=== PATIENT | male | born 1965 | race Caucasian/White ===

== ENCOUNTER → 2022-04-09 06:18 | Outpatient (CLI) | payer OTHER, SELFPAY ==
[2022-04-08 18:11] LABS: Alanine Aminotransferase 11 U/L (12-78); Albumin Level 3.9 g/dl (3.5-5.0); Albumin/Globulin Ratio 1.4 (1.1-1.8); Alkaline Phosphatase 109 U/L (38-126); Anion Gap 10.8 mEq/L (5-15); Aspartate Amino Transferase 23 U/L (17-59); Blood Urea Nitrogen 4 mg/dl (9-20); Calcium 9.4 mg/dl (8.4-10.2); Carbon Dioxide 28 mmol/L (22.0-30.0); Chloride 106 mmol/L (98-107); Chol/HDL Ratio 4.7 (1-3.5); Cholesterol 160 mg/dl (140-200); Estimated Glomerular Filt Rate 116 ml/min (>60); GFR (African American) 140 ML/MIN (>60); Globulin 2.8 g/dL (1.3-3.2); Glucose 85 mg/dl (74-100); HDL Cholesterol 34 mg/dl (40-60); Potassium 4.8 mmoL/L (3.5-5.1); Sodium 140 mmol/L (136-145); Total Protein,Serum 6.7 g/dl (6.3-8.2); Triglycerides 121 mg/dl (30-150); VLDL Cholesterol 24 mg/dL (0-40)
[2022-04-08 18:13] LABS: Bilirubin,Total 0.1 mg/dl (0.2-1.3)
[2022-04-08 18:23] LABS: Direct LDL Cholesterol 87.97 mg/dL (100-129)
[2022-04-08 18:28] LABS: 25-OH Vitamin D, Total 28.6 ng/mL (30-100)
[2022-04-08 18:29] LABS: Free T4 (Free Thyroxine) 1.22 ng/dl (0.78-2.19)
[2022-04-08 18:37] LABS: Erythrocyte Sedimentation Rate 8 mm/hr (0-20)
[2022-04-08 18:40] LABS: Basophils # 0.1 K/mm3 (0-0.2); Basophils % 1.2 % (0.1-2.0); Eosinophils # 0.2 K/mm3 (0.0-0.4); Eosinophils % 2.2 % (0.1-12.0); Hematocrit 43.9 % (42.0-52.0); Hemoglobin 14.6 g/dL (14.1-18.0); Lymphocytes # 3.5 K/mm3 (0.7-4.5); Lymphocytes % 38.6 % (10-50); Mean Corpuscular HGB Conc 33.2 g/dL (31.8-35.4); Mean Corpuscular Volume 90.3 fl (80-94); Mean Platelet Volume 8.1 fl (7.4-10.4); Monocytes # 0.7 K/mm3 (0.1-1.0); Monocytes % 7.3 % (1.7-9.3); Neutrophils # 4.6 K/mm3 (1.8-7.8); Neutrophils % 50.6 % (37.0-80.0); Platelet Count 379 K/mm3 (142-424); Red Blood Count 4.86 M/mm3 (4.60-6.20); Red Cell Distribution Width 13.5 % (11.5-17.5)
[2022-04-08 18:44] LABS: Prostate Specific Ag Screen 0.6 ng/ml (0.0-4.0); Thyroid Stimulating Hormone 2.02 uIU/mL (0.465-4.68)
== END ==
PROVIDERS: PCP Emergency Medicine; Visit Provider Emergency Medicine
DX: M54.50 Low back pain, unspecified (principal); M79.604 Pain in right leg; M79.605 Pain in left leg; E55.9 Vitamin D deficiency, unspecified; Z12.5 Encounter for screening for malignant neoplasm of prostate
CPT/HCPCS: 80053; 80061; 82306; 84439; 84443; 85025; 85651; G0103

== ENCOUNTER → 2022-04-27 09:35 | Outpatient (CLI) | payer OTHER, SELFPAY ==
--- NOTE | 2022-04-27 10:33 | MR_ITS ---
FINAL REPORT CLINICAL HISTORY: chronic low back pain. no specific injury. pain radiates down bilateral extremities. FINDINGS: Multiplanar MR imaging of the lumbar spine was performed without contrast. On the sagittal T2-weighted images, multilevel disc degeneration is seen. There are endplate changes at several levels. A hemangioma is seen in the L1 vertebral body. The vertebral alignment is normal. There is no evidence of fracture. No bony mass is identified. The conus is seen at approximately the L1 level and has an unremarkable appearance. L1-2: There is annular disc bulge and left foraminal disc protrusion with moderate left neural foraminal narrowing. L2-3: An annular bulge is present. Facet arthropathy and osteophytes are present. There is moderate bilateral neural foraminal narrowing. L3-4: An annular bulge is present. Facet arthropathy and osteophytes are present. There is moderate bilateral neural foraminal narrowing. There is mild central canal stenosis with AP diameter thecal sac measuring 7 mm. L4-5: There is an annular disc bulge and posterior midline annular tear. There is moderate bilateral neural foraminal narrowing. L5-S1: There is annular disc bulge with mild bilateral neural foraminal narrowing. Spurring is noted of the SI joints. The right kidney is not visualized and may be ectopic or absent. IMPRESSION: Multilevel degenerative disc disease with mild central canal stenosis at L3-4 and mild to moderate neural foraminal narrowing throughout . Reviewed, Interpreted and Dictated by Yoseph Richardson III, MD Transcribed by Yolanda Carranza Authenticated and . [facility]
== END ==
LOC: RAD 09:35
PROVIDERS: PCP Emergency Medicine; Visit Provider Emergency Medicine
DX: M54.9 Dorsalgia, unspecified (principal); M54.50 Low back pain, unspecified
CPT/HCPCS: 72148

== ENCOUNTER → 2022-10-10 07:07 | Outpatient (CLI) | payer OTHER, SELFPAY ==
[2022-10-10 18:36] LABS: Alanine Aminotransferase 11 U/L (12-78); Albumin Level 4.3 g/dl (3.5-5.0); Albumin/Globulin Ratio 1.5 (1.1-1.8); Alkaline Phosphatase 126 U/L (38-126); Anion Gap 8.2 mEq/L (5-15); Aspartate Amino Transferase 25 U/L (17-59); Bilirubin,Total 0.6 mg/dl (0.2-1.3); Blood Urea Nitrogen 9 mg/dl (9-20); Calcium 9.3 mg/dl (8.4-10.2); Carbon Dioxide 30 mmol/L (22.0-30.0); Chloride 105 mmol/L (98-107); Chol/HDL Ratio 4.3 (1-3.5); Cholesterol 185 mg/dl (140-200); Estimated Glomerular Filt Rate 99 ml/min (>60); GFR (African American) 120 ML/MIN (>60); Globulin 2.9 g/dL (1.3-3.2); Glucose 94 mg/dl (74-100); HDL Cholesterol 43 mg/dl (40-60); Potassium 4.2 mmoL/L (3.5-5.1); Sodium 139 mmol/L (136-145); Total Protein,Serum 7.2 g/dl (6.3-8.2); Triglycerides 85 mg/dl (30-150); VLDL Cholesterol 17 mg/dL (0-40)
[2022-10-10 18:49] LABS: Direct LDL Cholesterol 108.05 mg/dL (100-129)
[2022-10-10 19:04] LABS: Basophils # 0.1 K/mm3 (0-0.2); Basophils % 1.4 % (0.1-2.0); Eosinophils # 0.2 K/mm3 (0.0-0.4); Eosinophils % 2.4 % (0.1-12.0); Hematocrit 44.7 % (42.0-52.0); Hemoglobin 14.4 g/dL (14.1-18.0); Lymphocytes # 2.7 K/mm3 (0.7-4.5); Lymphocytes % 35.9 % (10-50); Mean Corpuscular HGB Conc 32.2 g/dL (31.8-35.4); Mean Corpuscular Hemoglobin 28.3 pg (27.0-31.2); Mean Corpuscular Volume 87.8 fl (80-94); Mean Platelet Volume 8.1 fl (7.4-10.4); Monocytes # 0.5 K/mm3 (0.1-1.0); Monocytes % 6.2 % (1.7-9.3); Neutrophils # 4.1 K/mm3 (1.8-7.8); Neutrophils % 54.2 % (37.0-80.0); Platelet Count 451 K/mm3 (142-424); Red Blood Count 5.09 M/mm3 (4.60-6.20); Red Cell Distribution Width 14.2 % (11.5-17.5); White Blood Count 7.5 K/mm3 (4.8-10.8)
[2022-10-10 19:07] LABS: Thyroid Stimulating Hormone 2.01 uIU/mL (0.465-4.68)
== END ==
LOC: LAB.DROPOF 10-11 07:07
PROVIDERS: PCP Nurse Practitioner Family; Visit Provider Nurse Practitioner Family
DX: R53.83 Other fatigue (principal); I10 Essential (primary) hypertension
CPT/HCPCS: 80053; 80061; 84443; 85025

== ENCOUNTER → 2022-10-18 11:43 | Outpatient (POV) | payer OTHER, SELFPAY ==
[2022-10-18 11:55] VITALS: BP 118/88; PULSE 60; RESP 18; O2SAT 98; BMI 21.8
--- NOTE | 2022-10-18 12:23 | EXP.PAIN.OV ---
HPI Data of Consult Patient: new to practice Consult date: 10/18/22 Requesting Physician: Isaías Evans CRNA Primary Care Provider: Constantine Stiles APRN Consult Narrative Reason for consult: Lumbar back pain. Bilateral hip and leg radicular symptoms. History of present illness: Mr. Teixeira is a 56 year old male who comes our clinic today for initial consultation regarding chronic low back pain as well as bilateral hip and leg radicular symptoms to his feet. Patient describes this pain is been going on for 4 to 6 months. Patient did obtain a lumbar MRI. I reviewed the results with the patient. MRI reveals multilevel degenerative disc disease. Multilevel disc bulge L3-4, L4-5, L5-S1. Mild canal stenosis at the 3 4 level. I discussed in detail with the patient regarding his low back pathology as well as treatment options. Patient has tried some chiropractic treatment in the last 6 months with minimal relief. He has been taking NSAIDs as well as acetaminophen with minimal relief. Patient does attend a Suboxone clinic. Patient also takes gabapentin 600 mg 1 p.o. 4 times daily. He reports the Suboxone does not relieve his pain to any degree. Simply keeps him from seeking pain medications. Patient reports gabapentin does seem to help with his leg pain at times. 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 He is having difficulty performing his job adequately due to the pain. CC: Isaías Evans CRNA [facility] Disclaimer: The information contained in this section may have been updated after the patient was seen, as this information can be updated by other users. Medical History (Updated 10/18/22 @ 12:32 by Isaías Evans CRNA) DDD (degenerative disc disease), lumbar Social History (Updated 10/18/22 @ 11:59 by Indu Olivas RN) Smoking Status: Current every day smoker tobacco type: cigarettes packs per day: 2 alcohol intake: former substance use type: former substance user current occupational status: employed Travel in the last 8 weeks: None Review of Systems Review of Systems Review of systems (narrative): Patient is awake alert [place] x3. In no acute distress. Flexion-extension lumbar spine very guarded secondary to pain. Deep tendon reflexes upper lower extremities normal. Motor strength upper and lower extremities normal. There is no gross sensory deficit. Gait is normal. Meds Home Medications and Allergies Home Medications Medication Instructions Recorded Confirmed Type buprenorphine 8 mg-naloxone 2 mg 2 tab sublingual DAILY . 04/08/22 10/18/22 History sublingual tablet cholecalciferol (vitamin D3) 1,250 1,250 mcg PO WEEKLY vitamin d 07/05/22 10/18/22 Rx mcg (50,000 unit) capsule deficiency #12 caps cholecalciferol (vitamin D3) 50 50 mcg PO DAILY SUPPLIMENT 10/18/22 10/18/22 History mcg (2,000 unit) capsule gabapentin 600 mg tablet 600 mg PO QID Pain 10/18/22 10/18/22 History naproxen 500 mg tablet 500 mg PO BID Pain 10/18/22 10/18/22 History New Prescriptions to Start Prescriptions: Allergies Allergy/AdvReac Type Severity Reaction Status Date / Time No Known Allergies Allergy Verified 10/10/22 13:47 Objective Vital signs: Pulse Resp BP Pulse Ox 60 18 118/88 98 10/18/22 11:55 10/18/22 11:55 10/18/22 11:55 10/18/22 11:55 Opioid Risk Tool Opioid Risk Tool-Male Family hx alcohol abuse: No Family hx illegal drugs: No Family hx rx drug abuse: No Personal hx alcohol abuse: Yes Personal hx illegal drugs: Yes Personal hx rx drug abuse: No Age: 45+ Hx of sexual abuse: No Mental health issues-ADD,OCD,Bipolar, etc: No Hx of depression: Yes Male Risk Score: 7 Assessment and Plan *Assessment and plan (1) Lumbar radiculopathy: Status: Acute Category: Medical Code(s): M54.16 - Radiculopathy, lumbar region Plan I discussed in detail with the patient regarding the benefits of lumbar epidural ster
== END ==
PROVIDERS: PCP Nurse Practitioner Family; Visit Provider Nurse Anesthetist, Certified Registered
DX: M54.16 Radiculopathy, lumbar region (principal)
CPT/HCPCS: 99202; G0463

== ENCOUNTER 2022-10-29 08:57 | Day surgery (SDC) | payer OTHER, SELFPAY ==
[2022-10-29 09:13] VITALS: BP 159/84; PULSE 56; RESP 18; TEMP 36.7; O2SAT 97; BMI 22.1
[2022-10-29 09:29] VITALS: BP 169/7; PULSE 59; RESP 18; O2SAT 98
[2022-10-29 09:31] VITALS: BP 169/71; PULSE 59; RESP 18; O2SAT 98
--- NOTE | 2022-10-29 09:36 | EXP.PAIN.PRO ---
Procedure Date: 10/29/22 Time: 09:36 Anesthesiologist:: Isaías Evans CRNA Complications:: None Pre-procedure Diagnosis:: Degenerative disc disease lumbar spine multilevels. Lumbar radiculopathy. Multilevel disc bulge L3-4, L4-5, L5-S1. Spinal stenosis lumbar spine. Post-procedure Diagnosis:: Same. Indications for Procedure:: This patient is a very pleasant 56-year-old male who presents to our clinic today for lumbar epidural steroid injection at the L4-5 level. Patient describes his low back pain as constant, dull, aching. However, his main complaint is bilateral hip and leg radicular symptoms. He rates his pain 7/10. Procedure Details:: Procedure: Lumbar epidural steroid injection under fluoroscopy Informed consent was obtained and the risks and benefits of the procedure were explained to the patient. The patient was taken to the procedure room and noninvasive monitors placed, including noninvasive blood pressure cuff and pulse oximeter. The back was viewed using C-arm Fluoroscopy and prepped using Chloraprep as a cleansing solution and the L4-L5 interspace was palpated. Skin and subcutaneous tissues were anesthetized using lidocaine 1.5% and a 25-gauge needle. After this, an 18-gauge Touhy epidural needle was placed into the L4-L5 interspace and advanced using fluoroscopic guidance and loss of resistance to air until the epidural space was encountered. After confirmation of needle placement in the epidural space, with dye, a solution containing normal saline, 3 mL and Depo-Medrol 80 mg were incrementally injected into the lumbar epidural space. The patient tolerated the procedure well with no complications. The patient was observed in the Pain Clinic and then discharged home neurologically intact. Plan and Disposition:: Patient was discharged without incident.
[2022-10-29 09:37] VITALS: BP 137/75; PULSE 49; RESP 18; O2SAT 97
== END 2022-10-29 09:37 | disposition home or self-care (01) ==
PROVIDERS: PCP Nurse Practitioner Family; Visit Provider Nurse Anesthetist, Certified Registered
DX: M51.16 Intervertebral disc disorders with radiculopathy, lumbar region (principal); M48.061 Spinal stenosis, lumbar region without neurogenic claudication; F17.210 Nicotine dependence, cigarettes, uncomplicated
CPT/HCPCS: 62323; J1040

== ENCOUNTER → 2022-11-12 14:05 | Outpatient (POV) | payer OTHER, SELFPAY ==
--- NOTE | 2022-11-12 15:05 | EXP.PAIN.SOA ---
[facility] Pain Management SOAP Note Subjective:: Patient is a pleasant 56-year-old male who presents today for follow-up of lumbar epidural steroid injection at L4-L5 on 10/29/2022. We are currently treating the patient for degenerative disc disease of lumbar spine with lumbar radiculopathy symptoms, multilevel disc bulge, spinal stenosis lumbar spine. Today he states he had approximately 70% relief following this injection lasting only 3 days. Patient states he was able to increase his activity with decreased pain and had better functionality. He does rate his pain a 7 out of 10 today and states he is back to his baseline. Patient does describe this as an aching, throbbing sensation that is worse with increased activity. Patient states he does have little to no pain while he sitting however he cannot tolerate prolonged standing or walking due to the pain. He does state he frequently has to take breaks. Patient has tried chiropractor with minimal improvements. He does currently take Tylenol and ibuprofen with minimal relief. He is on Suboxone therapy from an outside provider. Patient is also managed with gabapentin 600 mg 4 times a day from his primary care doctor. Patient denies any side effects from this medication. His Handy is [id number]. Its been reviewed and appropriate. Review of Systems: General: No recent weight changes, no fever, no sleep disturbances Respiratory: No cough, no shortness of air, no recurring pulmonary infections Cardiovascular/peripheral vascular: No chest pain, no palpitations, no edema, no shortness of breath Gastrointestinal: No new onset incontinence, normal bowel movements reported Genitourinary: No new onset incontinence Musculoskeletal: Low back pain, leg pain Psychiatric: [Normal mood/affect] Neurological: [Denies weakness in extremities], [denies balance issues] Objective:: Physical Exam: General: Alert and oriented x3, no acute distress, pleasant and cooperative Lungs: Respirations even and unlabored, symmetrical chest expansion Eyes: PERRL Musculoskeletal: Flexion and extension of lumbar [spine] somewhat guarded secondary to pain, [antalgic gait noted] positive shopping cart sign Neurological: Speech clear, no gross sensory deficit Assessment:: Degenerative disc disease of lumbar spine with lumbar radiculopathy symptoms, multilevel disc bulge, spinal stenosis lumbar spine spinal stenosis with neurogenic claudication symptoms Plan:: Patient is experiencing significant pain in his low back with symptoms radiating into his lower extremity. He did have limited range of motion of his lumbar spine with neurogenic claudication symptoms and a positive shopping cart sign during today's visit. Patient did have 70% improvement following his last lumbar epidural. I have discussed with the patient that he may benefit from a repeat lumbar epidural steroid injection. Risk and benefits were discussed with the patient and he would like to proceed forward with this plan of care. I have also counseled the patient that he may be a potential candidate for a minimally invasive lumbar decompression in the future. Educational handouts were given. We will order a LESI with epidurogram of L4-L5 to determine if he is a possible mild candidate in the future. Patient has been instructed to contact the clinic with any concerns before the next appointment. Dr. Boyer has reviewed this note and agrees with this plan of care. This note was dictated using voice recognition software and make contain errors or omissions. [facility] Disclaimer: The information contained in this section may have been updated after the patient was seen, as this information can be updated by other users. Medical History DDD (degenerative disc disease), lumbar Family History (Updated 10/29/22 @ 09:14 by Kandy Marquez RN) Other No significant family history Social History (Reviewed 10/29/22 @ 09
[2022-11-12 15:13] VITALS: BP 144/82; PULSE 56; RESP 20; BMI 22.1
== END ==
PROVIDERS: PCP Nurse Practitioner Family; Visit Provider Nurse Practitioner Family
DX: M51.16 Intervertebral disc disorders with radiculopathy, lumbar region (principal); M48.062 Spinal stenosis, lumbar region with neurogenic claudication
CPT/HCPCS: 99212; G0463

== ENCOUNTER 2022-11-22 10:52 | Day surgery (SDC) | payer OTHER, SELFPAY ==
[2022-11-22 11:24] VITALS: BP 182/88; PULSE 56; RESP 18; TEMP 36.6; O2SAT 95; BMI 22.1
[2022-11-22 13:15] VITALS: BP 166/90; PULSE 55; RESP 18; O2SAT 96
[2022-11-22 13:17] VITALS: BP 166/90; PULSE 55; RESP 18; O2SAT 96
--- NOTE | 2022-11-22 13:19 | EXP.PAIN.PRO ---
Procedure Date: 11/22/22 Time: 13:19 Anesthesiologist:: Norman Boyer MD Complications:: None Pre-procedure Diagnosis:: Degenerative disc disease of lumbar spine with lumbar spinal stenosis and neurogenic claudication symptoms Post-procedure Diagnosis:: Same Indications for Procedure:: This patient is a pleasant 56-year-old white male who we are treating for low back pain with lumbar radiculopathy symptoms and lumbar spinal stenosis with neurogenic claudication symptoms. We will do a lumbar epidural steroid injection with epidurogram today to assess levels of stenosis and candidacy for minimally invasive lumbar decompression. Procedure Details:: Informed consent was obtained and the risk and benefits of the procedure was explained to the patient. The patient was taken to the procedure room. The patient was placed prone on the procedure table. The patient was prepped and draped in sterile fashion. C-arm fluoroscopy was used to view the lumbar spine. Skin and subcutaneous tissues were anesthetized using lidocaine. I placed an 18-gauge epidural needle and advanced into the L4-L5 interspace using fluoroscopic guidance and [id number] to air. After confirmation of needle placement in the epidural space with dye I injected 2 mL of lidocaine 1.5% with Depo-Medrol 80 mg. Patient tolerated the procedure well with no complications. Plan and Disposition:: This patient does have significant stenosis based on epidurogram at L3-4 L4-5 bilaterally. MRI does show significant stenosis as well we will seek approval for minimally invasive lumbar decompression bilateral L3-L4 and L4-L5.
[2022-11-22 13:34] VITALS: BP 173/84; PULSE 51; RESP 20
--- NOTE | 2022-11-22 13:34 | P.PCN_ITS ---
[facility] Procedure Note Date: 11/22/22 Time: 13:34
--- NOTE | 2022-11-22 13:34 | HMH.PROCNOTE ---
[facility] Procedure Note Date: 11/22/22 Time: 13:34
--- NOTE | 2022-11-22 13:34 | EXP.PAIN.PRO ---
Procedure Date: 11/22/22 Time: 13:34 Anesthesiologist:: Norman Boyer MD Complications:: None Pre-procedure Diagnosis:: Degenerative disc disease of lumbar spine with lumbar spinal stenosis and neurogenic claudication symptoms Post-procedure Diagnosis:: Same Indications for Procedure:: This patient is a pleasant 56-year-old white male who we are treating for
== END 2022-11-22 13:35 | disposition home or self-care (01) ==
PROVIDERS: PCP Nurse Practitioner Family; Visit Provider Anesthesiology
DX: M51.16 Intervertebral disc disorders with radiculopathy, lumbar region (principal); M48.062 Spinal stenosis, lumbar region with neurogenic claudication
CPT/HCPCS: 62323; J1040; Q9966

== ENCOUNTER → 2022-12-11 09:09 | Outpatient (POV) | payer OTHER, SELFPAY ==
[2022-12-11 09:37] VITALS: BP 160/97; PULSE 62; RESP 18; O2SAT 97; BMI 22.1
--- NOTE | 2022-12-11 10:37 | EXP.PAIN.SOA ---
[facility] Pain Management SOAP Note Subjective:: Patient is a pleasant 56-year-old male who presents today for follow-up of insurance denial for a minimally invasive lumbar decompression procedure. We are currently treating the patient for degenerative disc disease of lumbar spine with lumbar radiculopathy symptoms, multilevel disc bulge, spinal stenosis lumbar spine.? Today he rates his pain a 9 out of 10. Patient denies any new trauma or injury. He states he continues to have significant pain in his low back as well as legs and now his right knee. Patient states that this is an aching, throbbing sensation that is worse with increased activity. He states he has noticed more leg cramping that occurs at night and frequently wakes him up to where he has to get up and move around to get relief. Patient does describe his back pain as an aching, throbbing sensation that is worse with increased activity.? Patient states he does have little to no pain while he sitting however he cannot tolerate prolonged standing or walking due to the pain.? He does state he frequently have to take breaks even with the slightest activity such as doing the dishes.? He does state his pain interferes with his ability to perform activities of daily living such as cooking or cleaning or even just walking on a regular basis. Patient has tried chiropractor with minimal improvements.? He does currently take Tylenol and ibuprofen with minimal relief.? He is on Suboxone therapy from an outside provider.? Patient is also managed with gabapentin 600 mg 4 times a day from his primary care doctor.? Patient denies any side effects from this medication.? His Handy is [id number].? Its been reviewed and appropriate. Review of Systems: General: No recent weight changes, no fever, no sleep disturbances Respiratory: No cough, no shortness of air, no recurring pulmonary infections Cardiovascular/peripheral vascular: No chest pain, no palpitations, no edema, no shortness of breath Gastrointestinal: No new onset incontinence, normal bowel movements reported Genitourinary: No new onset incontinence Musculoskeletal: Low back pain, right knee pain Psychiatric: [Normal mood/affect] Neurological: [Denies weakness in extremities], [denies balance issues] Objective:: Physical Exam: General: Alert and oriented x3, no acute distress, pleasant and cooperative Lungs: Respirations even and unlabored, symmetrical chest expansion Eyes: PERRL Musculoskeletal: Flexion and extension of lumbar [spine] somewhat guarded secondary to pain, [antalgic gait noted] Neurological: Speech clear, no gross sensory deficit CLINICAL HISTORY: chronic low back pain. no specific injury. pain radiates down bilateral extremities. FINDINGS: Multiplanar MR imaging of the lumbar spine was performed without contrast. ? On the sagittal T2-weighted images, multilevel disc degeneration is seen.? There are endplate changes at several levels.? A hemangioma is seen in the L1 vertebral body.? The vertebral alignment is normal. There is no evidence of fracture. No bony mass is identified. The conus is seen at approximately the L1 level and has an unremarkable appearance. ? L1-2:? There is annular disc bulge and left foraminal disc protrusion with moderate left neural foraminal narrowing.? L2-3:? An annular bulge is present.? Facet arthropathy and osteophytes are present.? There is moderate bilateral neural foraminal narrowing.? L3-4:? An annular bulge is present.? Facet arthropathy and osteophytes are present.? There is moderate bilateral neural foraminal narrowing.? There is mild central canal stenosis with AP diameter thecal sac measuring 7 mm. L4-5:? There is an annular disc bulge and posterior midline annular tear.? There is moderate bilateral neural foraminal narrowing.? L5-S1:? There is annular disc bulge with mild bilateral neural foraminal narrowing.? ? Spurring is noted of the SI joints.? ? The right kidney is not visualized and may be ectopic or
== END | disposition home or self-care (01) ==
PROVIDERS: PCP Nurse Practitioner Family; Visit Provider Nurse Practitioner Family
DX: M51.16 Intervertebral disc disorders with radiculopathy, lumbar region (principal); M48.062 Spinal stenosis, lumbar region with neurogenic claudication
CPT/HCPCS: 99212; G0463

== ENCOUNTER 2022-12-17 08:05 | Day surgery (SDC) | payer OTHER, SELFPAY ==
[2022-12-17 08:35] VITALS: BP 171/84; PULSE 54; RESP 18; TEMP 36.6; O2SAT 98; BMI 22.1
[2022-12-17 08:47] VITALS: BP 170/72; PULSE 55; RESP 18; O2SAT 98
[2022-12-17 08:48] VITALS: BP 170/72; PULSE 55; RESP 18; O2SAT 98
[2022-12-17 08:50] VITALS: BP 127/87; PULSE 58; RESP 18; TEMP 36.6; O2SAT 98
--- NOTE | 2022-12-17 08:52 | EXP.PAIN.PRO ---
Procedure Date: 12/17/22 Time: 08:40 Anesthesiologist:: Isaías Evans CRNA Complications:: None Pre-procedure Diagnosis:: Osteoarthritis right knee. Chronic right knee pain. Post-procedure Diagnosis:: Same. Indications for Procedure:: This patient is a pleasant 56-year-old male that we have treated for quite some time for chronic low back pain as well as bilateral hip and leg radicular symptoms. He has responded moderately well to previous lumbar epidural steroid injections. Today presents for right intra-articular knee injection. He attributes his chronic right knee pain to arthritis and antalgic gait due to sciatic nerve pain. Patient scribes the right knee pain as constant, dull, aching. He rates pain 7/10. Patient states ambulating for any mild to moderate distance is difficult. Steps are difficult. Procedure Details:: Procedure Details: Right intra-articular knee injection Informed consent was obtained risk and benefits of the procedure were explained to the patient. Patient was taken the procedure room right knee was prepped using ChloraPrep. A 25-gauge needle was used to inject 10 mL bupivacaine 0.25% and Depo-Medrol 40 mg into the right knee. The patient tolerated the procedure well with no complications. Plan and Disposition:: Patient was discharged without incident.
== END 2022-12-17 08:51 | disposition home or self-care (01) ==
PROVIDERS: PCP Nurse Practitioner Family; Visit Provider Nurse Anesthetist, Certified Registered
DX: M17.11 Unilateral primary osteoarthritis, right knee (principal); M25.561 Pain in right knee; G89.29 Other chronic pain
CPT/HCPCS: 20610; J1040

== ENCOUNTER → 2023-01-03 08:26 | Outpatient (POV) | payer OTHER, SELFPAY ==
[2023-01-03 08:36] VITALS: BP 144/87; PULSE 54; RESP 18; O2SAT 96; BMI 21.8
--- NOTE | 2023-01-03 08:52 | EXP.PAIN.SOA ---
[facility] Pain Management SOAP Note Subjective:: This patient is a pleasant 56-year-old male that comes to our clinic today for follow-up visit after being denied MILD procedure at the L3-4 level. Also, he is following up from a right intra-articular knee injection. Patient reports right knee is doing very well since injection. However, his main complaint is bilateral hip and leg radicular symptoms as well as chronic low back pain. He describes the pain as constant, dull, aching in his low back. He states his radicular patterns bilaterally including the lower legs. His MRI shows spinal stenosis at L3-4. We referred him to neurosurgery at the time of his last visit. His appointment will be January 17, 2023. He will return to see us following this appointment. 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 Patient is on Suboxone from another provider. Patient also takes gabapentin 600 mg 1 p.o. 3 times daily from another provider. His [facility] report [id number] has been reviewed and appropriate. Objective:: Patient is awake alert [place] x3. No acute distress. Flexion-extension lumbar spine very guarded secondary to pain. Deep tendon reflexes upper and lower extremities normal. Motor strength upper and lower extremities normal. There is no gross sensory deficit. Gait is normal. Assessment:: Degenerative disc disease lumbar spine multilevels. Lumbar radiculopathy. Spinal stenosis L3-4. Plan:: Patient will return to see us after his neurosurgery visit on January 14, 2023. [facility] Disclaimer: The information contained in this section may have been updated after the patient was seen, as this information can be updated by other users. Medical History DDD (degenerative disc disease), lumbar Family History Other No significant family history Social History (Updated 12/17/22 @ 08:36 by Justyn Olivares RN) Smoking Status: Current every day smoker tobacco type: cigarettes packs per day: 2 alcohol intake: former substance use type: former substance user current occupational status: employed Travel in the last 8 weeks: None
== END ==
PROVIDERS: PCP Nurse Practitioner Family; Visit Provider Nurse Anesthetist, Certified Registered
DX: M51.16 Intervertebral disc disorders with radiculopathy, lumbar region (principal); M48.061 Spinal stenosis, lumbar region without neurogenic claudication
CPT/HCPCS: 99212; G0463

== ENCOUNTER → 2023-02-03 12:21 | Outpatient (POV) | payer OTHER, SELFPAY ==
--- NOTE | 2023-02-03 13:02 | A.OFFVIS_ITS ---
[facility] Pain Management SOAP Note Subjective:: Patient is a pleasant 57-year-old male who presents today for follow-up. We are currently treating the patient for degenerative disc disease of lumbar spine multilevels with lumbar radiculopathy symptoms, spinal stenosis. Today he rates his pain an 8 out of 10. Patient denies any new trauma or injury. Patient denies any change location or type of pain he experiences. He does state that he is scheduled for a MRI coming up on the and then will be scheduled for a follow up with neurosurgery on the . Patient states that the neurosurgeon did discuss that surgery was a probable plan of care. 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 He is on gabapentin 600 mg 3 times daily and Suboxone therapy from outside providers. His Handy is [id number]. Its been reviewed and appropriate. Review of Systems: General: No recent weight changes, no fever, no sleep disturbances Respiratory: No cough, no shortness of air, no recurring pulmonary infections Cardiovascular/peripheral vascular: No chest pain, no palpitations, no edema, no shortness of breath Gastrointestinal: No new onset incontinence, normal bowel movements reported Genitourinary: No new onset incontinence Musculoskeletal: Low back pain Psychiatric: [Normal mood/affect] Neurological: [Denies weakness in extremities], [denies balance issues] Objective:: Physical Exam: General: Alert and oriented x3, no acute distress, pleasant and cooperative Lungs: Respirations even and unlabored, symmetrical chest expansion Eyes: PERRL Musculoskeletal: Flexion and extension of lumbar [spine] somewhat guarded secondary to pain, [antalgic gait noted] Neurological: Speech clear, no gross sensory deficit Assessment:: Degenerative disc disease of lumbar spine with lumbar radiculopathy symptoms, spinal stenosis Plan:: Patient continues to experience significant pain in his low back with radiating symptoms into his lower extremities. I will order the patient compounding cream . Patient will follow-up in clinic in 6 weeks for reevaluation of symptoms and plan of care. Patient has been instructed to contact the clinic with any concerns before the next appointment. Dr. Boyer has reviewed this note and agrees with this plan of care. This note was dictated using voice recognition software and make contain errors or omissions. [facility] Disclaimer: The information contained in this section may have been updated after the patient was seen, as this information can be updated by other users. Medical History DDD (degenerative disc disease), lumbar Family History Other No significant family history Social History Smoking Status: Current every day smoker tobacco type: cigarettes packs per day: 2 alcohol intake: former substance use type: former substance user current occupational status: employed Travel in the last 8 weeks: None
[2023-02-03 13:41] VITALS: BP 158/92; PULSE 59; RESP 18; O2SAT 97; BMI 25.4
== END ==
PROVIDERS: Visit Provider Nurse Practitioner Family
DX: M51.16 Intervertebral disc disorders with radiculopathy, lumbar region (principal); M48.00 Spinal stenosis, site unspecified
CPT/HCPCS: 99212; G0463

== ENCOUNTER 2023-10-03 18:28 | Outpatient (CLI) | payer MEDICAID, SELFPAY ==
[2023-10-03 20:18] LABS: Amphetamine/Metha Screen,Urine Negative ng/ml (<1000)
[2023-10-03 20:19] LABS: Barbiturates Screen,Urine Negative ng/ml (<200)
[2023-10-03 20:20] LABS: Benzodiazepines Screen,Urine Negative ng/ml (<200); Cannabinoid Screen,Urine Negative ng/ml (<50)
[2023-10-03 20:21] LABS: Cocaine Screen,Urine Negative ng/ml (<300); Methadone Screen,Urine Negative ng/ml (<300)
[2023-10-03 20:22] LABS: Opiate Screen,Urine Negative ng/ml (<300)
[2023-10-03 20:23] LABS: Phencyclidine Screen,Urine Negative ng/ml (<25)
[2023-10-08 11:39] LABS: Gabapentin,Urine 523.9 ug/mL (.)
== END 2023-10-03 23:59 ==
LOC: LAB.DROPOF 18:29
PROVIDERS: PCP Nurse Practitioner Family; Visit Provider Nurse Practitioner Family
DX: M54.16 Radiculopathy, lumbar region (principal); Z79.899 Other long term (current) drug therapy
CPT/HCPCS: 80307

== ENCOUNTER 2023-10-20 09:47 | Outpatient (CLI) | payer MEDICAID, SELFPAY ==
[2023-10-20] MEDS: ALBUTEROL 0.083% 2.5 MG/3 ML NEB IH (10:19)
--- NOTE | 2023-10-20 10:19 | PC.NURSE ---
Pre and Post Spirometry completed without incident. Albuterol 0.083% given via HHN, per written protocol, Pt tolerated tx well.
[2023-10-20 11:14] LABS: Basophils # 0.1 K/mm3 (0-0.2); Basophils % 0.8 % (0.1-2.0); Eosinophils # 0.1 K/mm3 (0.0-0.4); Eosinophils % 1.6 % (0.1-12.0); Hematocrit 46.3 % (42.0-52.0); Hemoglobin 14.9 g/dL (14.1-18.0); Lymphocytes # 2.3 K/mm3 (0.7-4.5); Lymphocytes % 28.6 % (10-50); Mean Corpuscular HGB Conc 32.2 g/dL (31.8-35.4); Mean Corpuscular Hemoglobin 29.1 pg (27.0-31.2); Mean Corpuscular Volume 90.4 fl (80-94); Mean Platelet Volume 7.6 fl (7.4-10.4); Monocytes # 0.4 K/mm3 (0.1-1.0); Monocytes % 5.1 % (1.7-9.3); Neutrophils % 63.9 % (37.0-80.0); Platelet Count 308 K/mm3 (142-424); Red Blood Count 5.11 M/mm3 (4.60-6.20); Red Cell Distribution Width 14.3 % (11.5-17.5); White Blood Count 7.9 K/mm3 (4.8-10.8)
[2023-10-20 12:02] LABS: Alanine Aminotransferase 14 U/L (12-78); Albumin Level 3.9 g/dl (3.5-5.0); Albumin/Globulin Ratio 1.4 (1.1-1.8); Alkaline Phosphatase 98 U/L (38-126); Anion Gap 9.4 mEq/L (5-15); Aspartate Amino Transferase 22 U/L (17-59); Bilirubin,Total 0.3 mg/dl (0.2-1.3); Blood Urea Nitrogen 10 mg/dl (9-20); Calcium 9.3 mg/dl (8.4-10.2); Carbon Dioxide 29 mmol/L (22.0-30.0); Chloride 107 mmol/L (98-107); Estimated Glomerular Filt Rate 99 ml/min (>60); GFR (African American) 120 ML/MIN (>60); Globulin 2.7 g/dL (1.3-3.2); Glucose 112 mg/dl (74-100); Potassium 5.4 mmoL/L (3.5-5.1); Sodium 140 mmol/L (136-145); Total Protein,Serum 6.6 g/dl (6.3-8.2)
[2023-10-21 07:37] LABS: HCV Ab Non Reactive (Non Reactive); HIV Screen 4th Generation wRfx Non Reactive (Non Reactive); Hep B Core Ab, Total Negative (Negative); Hep B Surface Ab, Qual Non Reactive (.)
[2023-10-21 13:54] LABS: Rapid Plasma Reagin Ab Titer Non Reactive titer (NonRea<1:1)
[2023-10-21 14:04] LABS: Hepatitis B Surface Antigen Negative
[2023-10-23 23:08] LABS: QuantiFERON-TB Gold Plus Negative (Negative)
== END 2023-10-20 23:59 ==
LOC: RT 09:48
PROVIDERS: Nurse Practitioner Family; PCP Nurse Practitioner Family; Visit Provider Nurse Practitioner Family
DX: R06.02 Shortness of breath (principal); Z72.0 Tobacco use; F11.20 Opioid dependence, uncomplicated; Z11.4 Encounter for screening for human immunodeficiency virus [HIV]
CPT/HCPCS: 36415; 80053; 85025; 86480; 86593; 86703; 86704; 86706; 87340; 94060; G0432

== ENCOUNTER 2024-01-12 13:08 | Outpatient (CLI) | payer MEDICAID, SELFPAY ==
--- NOTE | 2024-01-12 13:11 | CT_ITS ---
FINAL REPORT TECHNIQUE: Axial CT images of the chest were obtained without contrast. Low-dose protocol was utilized. This study was performed with techniques to keep radiation doses as low as reasonably achievable (ALARA). Individualized dose reduction techniques using automated exposure control or adjustment of mA and/or kV according to the patient's size were employed. CLINICAL HISTORY: lung cancer screening. Former smoker- quit 2 months ago, smoked 2 PPD x35 yrs. COPD. Exposure to second hand smoke. COMPARISON: None FINDINGS: CT CHEST WITHOUT, LOW DOSE SCREENING CT Di Vol: 2.90 mGy DLP: 115.68 mGy*cm There is no axillary, mediastinal, or hilar adenopathy. The heart size is normal. There is no pleural or pericardial effusion. The lung windows show a spiculated nodule in the posterior left lung apex measuring up to 12 mm. There is coarse linear scarring in the anterior left upper lobe. Severe emphysematous changes are noted. There is a smoothly marginated subpleural nodule in the lingula measuring 9 mm. Limited images of the upper abdomen demonstrate no acute findings. IMPRESSION: Two suspicious nodules in the left upper lobe, largest measuring up to 12 mm. LR Category 4A: PET-CT evaluation recommended. Reviewed, Interpreted and Dictated by Blas Lord MD Transcribed by Ludy Colón Authenticated and [facility]
== END 2024-01-12 23:59 | disposition home or self-care (01) ==
LOC: RAD 13:08
PROVIDERS: PCP Nurse Practitioner Family; Visit Provider Internal Medicine Pulmonary Disease
DX: R06.09 Other forms of dyspnea (principal); F17.210 Nicotine dependence, cigarettes, uncomplicated
CPT/HCPCS: 71271; 94618

== ENCOUNTER 2024-01-30 14:34 | Outpatient (CLI) | payer MEDICAID, SELFPAY ==
[2024-01-30 15:25] LABS: Blood Urea Nitrogen 8 mg/dl (9-20); Estimated Glomerular Filt Rate 86 ml/min (>60); GFR (African American) 104 ML/MIN (>60)
== END 2024-01-30 23:59 | disposition home or self-care (01) ==
LOC: LAB 14:35
PROVIDERS: PCP Nurse Practitioner Family; Visit Provider Internal Medicine Pulmonary Disease
DX: Z01.812 Encounter for preprocedural laboratory examination (principal); R07.9 Chest pain, unspecified
CPT/HCPCS: 36415; 82565; 84520

== ENCOUNTER 2024-02-02 07:40 | Outpatient (CLI) | payer MEDICAID, SELFPAY ==
--- NOTE | 2024-02-02 07:41 | CT_ITS ---
FINAL REPORT TECHNIQUE: Postcontrast axial images of the chest were performed in a CTA protocol. This study was performed with techniques to keep radiation doses as low as reasonably achievable, (ALARA). Individualized dose reduction technique using automated exposure control or adjustment of mA and/or kV according to the patient's size were employed. CLINICAL HISTORY: Chest pain/SOB COMPARISON: 01/12/2024 FINDINGS: The heart is normal in size. There are small prevascular lymph nodes measuring up to 1.2 cm, stable from prior exam. There is no filling defect to suggest pulmonary embolism. Advanced changes of centrilobular emphysema are seen. There is a noncalcified nodule in the posterior right lung apex measuring 1.2 cm in diameter seen on image 17 of series 3. There is also a pleural-based density in the anterior left upper lobe on image 19 of series 3, also stable. Other smaller nodules are unchanged. Limited imaging of the upper abdomen is without acute abnormality. IMPRESSION: No evidence for PE on this exam. Stable pleural and parenchymal masses in the left upper lobe, neoplasm not excluded. Consider PET CT for further evaluation. Advanced changes of centrilobular emphysema. Reviewed, Interpreted and Dictated by Scottie Claros MD Transcribed by Yolanda Carranza Authenticated and [facility]
[2024-02-02] MEDS: SODIUM CHLORIDE 0.9% 10ML SYR (RAD ONLY) 10 ML IV (08:12)
[2024-02-02] MEDS: 0.9 % SODIUM CHLORIDE 50 ML VIAL IV (08:12)
[2024-02-02] MEDS: IOPAMIDOL-370 (76%);100ML BOTTLE 75 ML IV (08:12)
== END 2024-02-02 23:59 | disposition home or self-care (01) ==
LOC: RAD 07:41
PROVIDERS: PCP Nurse Practitioner Family; Visit Provider Internal Medicine Pulmonary Disease
DX: R07.9 Chest pain, unspecified (principal)
CPT/HCPCS: 71275; Q9967

== ENCOUNTER 2024-06-28 08:30 | Outpatient (CLI) | payer MEDICAID, SELFPAY ==
--- NOTE | 2024-06-28 08:34 | FL_ITS ---
FINAL REPORT CLINICAL HISTORY: choking 691.60 dap 2.17 fluoro time FINDINGS: ESOPHAGRAM HISTORY: . Dysphagia. History of lung cancer and radiation. PROCEDURE: The patient ingested barium. Effervescent crystals were also administered. Spot and overhead films were obtained. Fluoro time: 2 minutes 17 seconds DAP: 691.60 uGy.m2 FINDINGS: Penetration to the cords was demonstrated during the exam. There is a small sliding-type hiatal hernia with irregularity just proximal to the hernia. A 13 mm barium tablet does not pass through this region. No gastroesophageal reflux was demonstrated during the exam. IMPRESSION: Penetration of contrast to the cordds. Modified barium swallow recommended. Small sliding-type hiatal hernia with irregularity proximal to the hernia. A 13 mm barium tablet does not pass through this region. Endoscopic correlation recommended. Films reviewed, interpreted and dictated by Dr. Claros. Transcribed by Quan Benitez PA-C. Reviewed, Interpreted and Dictated by Scottie Claros MD Transcribed by KIMMY Doran Authenticated and [facility]
[2024-06-28] MEDS: E-Z-GASII EFFERVESCENT GRANULES;1PK 1 EACH PO (08:45)
[2024-06-28] MEDS: BARIUM SULFATE(LIQUID E-Z-PAQUE);355ML BOTTLE 355 ML PO (08:45)
[2024-06-28] MEDS: BARIUM SULFATE (E-Z-HD 340GM);135ML BOTTLE 135 ML PO (08:45)
== END 2024-06-28 23:59 | disposition home or self-care (01) ==
LOC: RAD 08:32
PROVIDERS: PCP Nurse Practitioner Family; Visit Provider Nurse Practitioner Family
DX: R13.10 Dysphagia, unspecified (principal)
CPT/HCPCS: 74220

== ENCOUNTER 2024-08-16 11:19 | Day surgery (SDC) | payer MEDICAID, SELFPAY ==
[2024-08-10 16:08] VITALS: BMI 23.3
[2024-08-16 11:53] VITALS: BP 153/104; PULSE 69; RESP 17; TEMP 36.3; O2SAT 98
[2024-08-16] MEDS: LACTATED RINGERS 1000ML 1,000 ML 25 ML IV (11:58)
--- NOTE | 2024-08-16 12:08 | P.PNANES_ITS ---
[facility] Disclaimer: The information contained in this section may have been updated after the patient was seen, as this information can be updated by other users. Medical History Multiple lung nodules on CT Solid nodule of lung greater than 8 mm in diameter Dyspnea on exertion Encounter for screening for malignant neoplasm of lung Smoking greater than 30 pack years COPD mixed type DDD (degenerative disc disease), lumbar Surgical History History of lung biopsy History of back surgery No history of previous surgery Family History Other No significant family history Social History Smoking Status: Former smoker tobacco type: cigarettes packs per day: 2 smoking status stop date: November 2023 alcohol intake: never substance use type: former substance user current occupational status: employed Travel in the last 8 weeks: None [facility] Anesthesia Checklist Patient Identification Patient Identification: Verbal (Name & ) Structural Data Admitted From: Home Planned Operative Procedure/s: egd,colon Consent for Planned Operative Procedure(s) Verified: Yes NPO Status Verified Time NPO: 00:00 Additional verifications Anesthesia Reactions: No Hx Blood Transfusions: No Blood Transfusion Reaction: No Airway Assessment Mallampati Score:: Class II C-Spine Mobility Assessed: Yes TMJ Mobility Assessed: Yes Dentition: Edentulous Neurological Assessment Level of Consciousness: Awake, Alert and Appropriate Anesthesia Plan Anesthesia Risk discussed: Yes Anesthesia Plan: Verified ASA Class: III Anesthesia Type: MAC
--- NOTE | 2024-08-16 12:18 | P.HP_ITS ---
History of Present Illness *Admission Date: 08/16/24 *Reason for visit:: Dysphagia/choking for upper endoscopy and strong family history of colon ca *History of present illness: Mr. Teixeira is a 58-year-old gentleman who is here for diagnostic upper endoscopy secondary to dysphagia and choking and for colonoscopy secondary to change in bowel habits/constipation and strong family history of colon cancer. The patient has never had a colonoscopy. The examination is deemed medically neces shanna for EGD and colonoscopy. The patient has been seen, interviewed and examined prior to the procedure by both myself and the anesthesia provider. [facility] Disclaimer: The information contained in this section may have been updated after the patient was seen, as this information can be updated by other users. Medical History Multiple lung nodules on CT Solid nodule of lung greater than 8 mm in diameter Dyspnea on exertion Encounter for screening for malignant neoplasm of lung Smoking greater than 30 pack years COPD mixed type DDD (degenerative disc disease), lumbar Surgical History History of lung biopsy History of back surgery No history of previous surgery Family History Other No significant family history Social History Smoking Status: Former smoker tobacco type: cigarettes packs per day: 2 smoking status stop date: November 2023 alcohol intake: never substance use type: former substance user current occupational status: employed Travel in the last 8 weeks: None Other Medical History Have you received the Flu Vaccine for this season: No Have you received the Pneumonia Vaccine: No Review of Systems Review of Systems Review of systems (narrative): Negative *Cardiovascular Comments: Negative *Gastrointestinal Comments: Negative *Genitourinary Comments: Negative *Musculoskeletal Comments: Negative *Neurologic Comments: Negative Meds Home Medications and Allergies Home Medications ?Medication ?Instructions ?Recorded ?Confirmed ?Type buprenorphine 8 mg-naloxone 2 mg 2 tab sublingual DAILY . 04/08/22 08/16/24 History sublingual tablet ipratropium 0.5 mg-albuterol 3 mg 3 ml inhalation QID PRN shortness 01/30/24 08/16/24 Rx (2.5 mg base)/3 mL nebulization of breath or wheezing 90 days #270 soln mL cariprazine 1.5 mg capsule 1.5 mg PO DAILY #90 caps 04/20/24 08/16/24 Rx (Vraylar) albuterol sulfate 90 mcg/actuation 2 inh inhalation QID PRN shortness 07/01/24 08/16/24 Rx aerosol inhaler of breath or wheezing 90 days #8.5 grams budesonide 160 mcg-glycopyr 9 2 inh inhalation BID 90 days #10.7 07/01/24 08/16/24 Rx mcg-formot 4.8 mcg/actuation HFA grams inhaler (Breztri Aerosphere) fluticasone propionate 50 2 spray intranasal DAILY 90 days 07/01/24 08/16/24 Rx mcg/actuation nasal #16 grams spray,suspension (Flonase Allergy Relief) nicotine (polacrilex) 2 mg gum 2 mg buccal Q2H PRN nicotine 07/01/24 08/16/24 Rx cravings #396 ea gabapentin 600 mg tablet 600 mg PO TID Pain #90 tabs 07/20/24 08/16/24 Rx omeprazole 40 mg capsule,delayed 40 mg PO DAILY #90 caps 08/04/24 08/16/24 Rx release peg 3350-electrolytes 236 240 ml PO Q10M colonscopy #4,000 mL 08/06/24 08/16/24 Rx gram-22.74 gram-6.74 gram-5.86 gram solution (Golytely) New Prescriptions to Start Prescriptions: Allergies Allergy/AdvReac Type Severity Reaction Status Date / Time No Known Allergies Allergy Verified 08/04/24 14:00 Exam Data for Last 24 hours Vital signs and Labs for Last 24 Hours: Temp Pulse Resp BP Pulse Ox O2 Del Method 97.3 F L 69 17 153/104 H 98 Room Air 08/16/24 11:53 08/16/24 11:53 08/16/24 11:53 08/16/24 11:53 08/16/24 11:53 08/16/24 11:53 *Routine HEENT Exam Head: Present normocephalic Eye: Present EOMI and PERRL ENT: Present mucous membranes moist *Routine Neck Exam Neck: Present supple *Routine Respiratory Exam Respiratory: Present CTA bilaterally *Routine Cardiovascular Exam Cardiovascular: Present RRR *Routine Abdominal Exam Abdominal: Present soft and normoactive bowel sounds; Absent tenderness *Routine Rectal Exam Rectal:: deferred *Routine Genitalia Exam Genitalia:: deferred *Routine Extremities Exam Extremities: Absent cyanosis, clubbing or edema *Routine Skin Exam Skin: Present warm; Absent rash *Routine Neurological Exam Neurological: Present alert and oriented X3 Assessment and Plan *Assessment and plan (1) Dysphagia: Status: Acute Category: Medical Code(s): R13.10 - Dysphagia, unspecified (2) Choking: Status: Acute Category: Medical Code(s): T17.308A - Unspecified foreign body in larynx causing other injury, initial encounter (3) Family history of colon cancer: Status: Acute Category: Medical Code(s): Z80.0 - Family history of malignant neoplasm of digestive organs (4) Change in bowel habits: Status: Acute Category: Medical Code(s): R19.4 - Change in bowel habit (5) Constipation: Status: Acute Category: Medical Code(s): K59.00 - Constipation, unspecified Plan A/P: 1. Dysphagia/choking and change in bowel habits/constipation is the preprocedural diagnosis. The patient will be anesthetized/sedated using MAC sedation. The patient has been seen and examined. Cardiac and lung assessment prior to the examination is stable. Proceed with planned diagnostic EGD and diagnostic colonoscopy
[2024-08-16 12:25] VITALS: O2SAT 99
--- NOTE | 2024-08-16 12:28 | P.PCN_ITS ---
[facility] Procedure Note Date: 08/16/24 Time: 12:28 Procedure Note:: Upper Endoscopy Procedure Report: Esophagogastroduodenoscopy with cold biopsies and TTS balloon dilation Endoscopost: Yasmani Pittman II, MD Referring Physician: KAUSHAL Leal Date of Procedure: August 16, 2024 Equipment: Olympus GIF 190 standard upper endoscope Sedation: MAC sedation Indications: Mr. Teixeira is a 58-year-old gentleman with dysphagia. This occurs primarily with solid foods such as meats. He does get persistent heartburn and reflux and was placed on omeprazole which has helped some. He was drinking up to 12-15 carbonated beverages/sodas daily. He did have a modified barium swallow showing a small hiatal hernia and some irregularity and the 13 mm barium tablet did not pass. He reports no prior endoscopy. The patient has had a change in bowel habits and has developed constipation. He has a very strong family history of colon cancer. Procedure: Prior to the procedure, a history and physical exam was performed, and patient's medications and allergies were reviewed. The risks, benefits and alternatives of the sedation and procedure were discussed with the patient. All questions were answered and informed consent was obtained. The patient was brought to the procedure room. Patient identification and proposed procedure were verified by the physician and the nurse. The patient was placed in a left lateral decubitus position and the scope was passed under direct vision. Throughout the procedure, the patient's blood pressure, pulse, and oxygen saturations were monitored continuously. The upper GI endoscopy was accomplished without difficulty. The patient tolerated the procedure well. Findings: The scope was passed directly into the upper esophagus and advanced to the third portion of the duodenum. The post bulbar duodenum and duodenal bulb were normal with normal mucosa and conniventes. The scope was withdrawn through a normal duodenal bulb and pylorus into the stomach. There was moderate to marked bile reflux with moderate linear reactive gastropathy of the antrum. The remainder of the body and fundus of the stomach were normal. Upon retroflexion there was a very small sliding 1 to 2 cm hiatal hernia. Biopsies were taken from the antrum and lesser curvature to rule out H. pylori. The scope was then withdrawn into the esophagus. There was no evidence of reflux esophagitis. There was a distal fibrous ring/Schatzki's ring that was dilated to 60 Ethiopian/20 mm with a TTS hydrostatic balloon. The entire esophagus was dilated to 20 mm. The original diameter of the Schatzki's ring was 10 to 11 mm. The remainder of the esophageal mucosa was normal. Impression: 1. Schatzki's ring (originally 10 to 11 mm)?dilated to 20 mm 2. Nonerosive GERD with very small sliding 1 to 2 cm hiatal hernia 3. Bile reflux with mild to moderate linear reactive gastropathy Plan: I will follow-up the biopsies. The patient should have clinical improvement with dilation. I would continue omeprazole for 3 months. We will also address his chronic constipation which may be opioid-induced. I will proceed with diagnostic colonoscopy.
--- NOTE | 2024-08-16 12:52 | P.PCN_ITS ---
[facility] Procedure Note Date: 08/16/24 Time: 12:52 Procedure Note:: Colonoscopy Procedure Report: Colonoscopy with cold snare polypectomy Endoscopist: Yasmani Pittman II, MD Referring physician: KAUSHAL Leal Date of Procedure: August 16, 2024 Equipment: Olympus 190 variable stiffness pediatric colonoscope Sedation: MAC sedation Indication: Mr. Teixeira is a 58-year-old gentleman who is here for diagnostic colonoscopy secondary to a change in bowel habits and constipation. The patient is on Suboxone. The patient does have a strong family history of colon cancer and does have a brother that was diagnosed with colon cancer in his 50s and a second brother that was diagnosed with colon cancer in his 60s. The patient was recently diagnosed with a pulmonary lesion and is an active smoker. He reports no rectal bleeding or abdominal pain. Procedure: Prior to the procedure, a history and physical exam was performed, and patient's medications and allergies were reviewed. The risks, benefits and alternatives of the sedation and procedure were discussed with the patient. All questions were answered and informed consent was obtained. The patient was brought to the procedure room. Patient identification and proposed procedure were verified by the physician and the nurse. The patient was placed in a left lateral decubitus position and the scope was passed under direct vision. Throughout the procedure, the patient's blood pressure, pulse, and oxygen saturations were monitored continuously. The colonoscopy was accomplished without difficulty. The patient tolerated the procedure well. Findings: On digital rectal examination there was normal rectal tone. There were no external hemorrhoids. The colonoscope was introduced through the anal canal to the rectum and advanced to the cecum. The ileocecal valve and appendiceal orifice were identified. The scope was advanced a short distance into the ileum which appeared grossly normal. The scope was then withdrawn into the colon. The preparation was fair to poor with a lot of liquid yellow stool and some residue. There was a single 9 mm polyp in the cecum removed via cold snare polypectomy. The remainder of the ascending, transverse, descending, sigmoid and rectum were grossly normal. There were no other large polyps or masses. Smaller or diminutive polyps would be difficult to see with this bowel preparation. Upon retroflexion within the rectum there were grade 2 internal hemorrhoids. Impression: 1. 9 mm cecal polyp 2. Grade 2 internal hemorrhoids Plan: I will follow-up the polyp histology and recommend repeat surveillance colonoscopy again in 3 years. I do feel that his constipation may be related to the Suboxone. I would not likely mix Suboxone with Movantik or Relistor. We will discuss treatment options.
[2024-08-16 12:56] VITALS: BP 115/59; PULSE 65; RESP 18; O2SAT 95
[2024-08-16 13:06] VITALS: BP 118/72; PULSE 67; RESP 18; TEMP 36.2; O2SAT 95
[2024-08-16 13:16] VITALS: BP 123/76; PULSE 65; RESP 18; TEMP 36.2; O2SAT 95
[2024-08-16 13:33] VITALS: BP 128/72; PULSE 67; RESP 18; O2SAT 94
== END 2024-08-16 13:33 | disposition home or self-care (01) ==
PROVIDERS: PCP Nurse Practitioner Family; Visit Provider Internal Medicine Gastroenterology
PROC: 0DJ08ZZ Inspection of Upper Intestinal Tract, Via Natural or Artificial Opening Endoscopic (ICD-10-PCS; CPT 43235; principal; 2024-08-16 13:00)
DX: R13.10 Dysphagia, unspecified (principal); T17.308A Unspecified foreign body in larynx causing other injury, initial encounter; Z80.0 Family history of malignant neoplasm of digestive organs; K59.00 Constipation, unspecified; K63.5 Polyp of colon; K64.1 Second degree hemorrhoids
CPT/HCPCS: 43239; 43249; 45385; C1726; J7120

== ENCOUNTER 2024-09-07 13:00 | Emergency (ER) | payer MEDICAID, SELFPAY ==
[2024-09-07] VITALS (9 sets, daily range): BP systolic 119–158; BP diastolic 74–91; PULSE 67–77; RESP 9–18; TEMP 36.7; O2SAT 93–100; BMI 23.3
--- NOTE | 2024-09-07 13:01 | ECG_ITS ---
APPROVED REPORT Exam: Resting ECG HR:68 bpm ECG Measurements Heart Rate 68 AXES DE 129 P 72 QRSd 113 QRS 79 QT 376 T 63 QTc 392 Conclusion SINUS RHYTHM MODERATE INTRAVENTRICULAR CONDUCTION DELAY [110+ ms QRS DURATION] Electronically signed by : EMMIE HERNANDEZ, 09/08/2024 22:35:42
--- NOTE | 2024-09-07 13:07 | ED_ITS ---
<Statement entered by Gaye Jefferson DO - 09/07/24 18:51> I was consulted by the DEANNA, and we discussed the complexity of the problems being addressed. I approved the treatment and management plan for this patient's care in the emergency department, thus performing a substantive portion of the medical decision making. Gaye Jefferson DO Discharge Plan Disposition Patient Disposition: Home, Self-Care Condition: Good Prescriptions Prescriptions: New doxycycline hyclate 100 mg capsule 100 mg PO BID 10 Days Qty: 20 0RF No Action buprenorphine-naloxone 8-2 mg tablet, sublingual 2 tab SL DAILY Vraylar 1.5 mg capsule 1.5 mg PO DAILY Qty: 90 2RF ipratropium-albuterol 0.5 mg-3 mg(2.5 mg base)/3 mL solution for nebulization 3 ml inhalation QID PRN (Reason: shortness of breath or wheezing) 90 Days Qty: 270 3RF Breztri Aerosphere 160-9-4.8 mcg/actuation HFA aerosol inhaler 2 inh inhalation BID 90 Days Qty: 10.7 3RF albuterol sulfate 90 mcg/actuation HFA aerosol inhaler 2 inh inhalation QID PRN (Reason: shortness of breath or wheezing) 90 Days Qty: 8.5 2RF fluticasone propionate [Flonase Allergy Relief] 50 mcg/actuation spray,suspension 2 spray intranasal DAILY 90 Days Qty: 16 2RF Rx Instructions: administer into each nostril nicotine (polacrilex) 2 mg gum 2 mg buccal Q2H PRN (Reason: nicotine cravings) Qty: 396 0RF Rx Instructions: Weeks 1 to 6: Chew 1 piece every 2 hours As NEEDED Weeks 7 to 9: Chew 1 piece every 4 hors As NEEDED Weeks 1o to 12: Chew 1 piece every 8 hours As NEEDED gabapentin 600 mg tablet 600 mg PO TID Qty: 90 3RF omeprazole 40 mg capsule,delayed release(DR/EC) 40 mg PO DAILY Qty: 90 3RF peg 3350-electrolytes [Golytely] 236-22.74-6.74 -5.86 gram recon soln 240 ml PO Q10M Qty: 4000 0RF Rx Instructions: at 6pm day before surgery take first dose. After mixing prep as directed, drink half of the gallon by drinking 8 ounces, or 1 cup, every 15 mins until half is remaining. refrigerate the remaining and continue clear liquids till midnight. 5-6 hours before exam, take the second dosage, 8oz every 15 mins till gone. Referrals Follow up/Referrals: Provider,MD Cas [Referring] - See instructions David Garcia MD [Staff Physician] - See instructions Activity Restrictions/Add. Instructions Additional Instructions/Restrictions: I sent a prescription into the [facility] pharmacy here in [place] and is the only one that is open till 6 PM and nothing is open tomorrow due to the holiday. Please pick it up before 6. You need to follow-up next week with the [facility] with your cancer doctors given the discomfort that you have had. I have also referred you to cardiology for further workup as an outpatient. Return to the ER for any worsening signs or symptoms as needed. Clinical Impressions Clinical Impression: Chest pain, Malignant neoplastic disease Print Language Print Language: French Discharge ED Provider: Gaye Jefferson HPI <KIMMY Snell - Last Filed: 09/07/24 16:54> General Chief Complaint: Chest Pain Stated Complaint: Chest Pain Time Seen by Provider: 09/07/24 13:06 History of Present Illness HPI narrative: Patient presents for evaluation of chest pain. Patient states that he has been having intermittent chest pain over the last 2 weeks. However around 2 AM it began hurting some fears and it lasted for several hours at a level of 10 out of 10. It has since gone away but he has had symptoms again since he woke up this morning. He does describe the pain is somewhat migratory in the chest and upper abdomen but specifically where he was hurting last night was in the left upper chest. Patient has a history of lung cancer and is status post 1 dose of external beam radiation at the [facility]. Patient denies no personal history that he knows of of cardiovascular disease but is a former smoker and does have COPD that is not oxygen dependent. He currently denies chest pain level of 0 out of 10, no shortness of breath fever chills hemoptysis hematochezia melena dysphagia. Related Data Home Medications ?Medication ?Instructions ?Recorded ?Confirmed buprenorphine 8 mg-naloxone 2 mg 2 tab sublingual DAILY . 04/08/22 08/16/24 sublingual tablet Previous Rx's ?Medication ?Instructions ?Recorded ipratropium 0.5 mg-albuterol 3 mg 3 ml inhalation QID PRN shortness 01/30/24 (2.5 mg base)/3 mL nebulization of breath or wheezing 90 days #270 soln mL cariprazine 1.5 mg capsule 1.5 mg PO DAILY #90 caps 04/20/24 (Vraylar) albuterol sulfate 90 mcg/actuation 2 inh inhalation QID PRN shortness 07/01/24 aerosol inhaler of breath or wheezing 90 days #8.5 grams budesonide 160 mcg-glycopyr 9 2 inh inhalation BID 90 days #10.7 07/01/24 mcg-formot 4.8 mcg/actuation HFA grams inhaler (Breztri Aerosphere) fluticasone propionate 50 2 spray intranasal DAILY 90 days 07/01/24 mcg/actuation nasal #16 grams spray,suspension (Flonase Allergy Relief) nicotine (polacrilex) 2 mg gum 2 mg buccal Q2H PRN nicotine 07/01/24 cravings #396 ea gabapentin 600 mg tablet 600 mg PO TID Pain #90 tabs 07/20/24 omeprazole 40 mg capsule,delayed 40 mg PO DAILY #90 caps 08/04/24 release peg 3350-electrolytes 236 240 ml PO Q10M colonscopy #4,000 mL 08/06/24 gram-22.74 gram-6.74 gram-5.86 gram solution (Golytely) doxycycline hyclate 100 mg capsule 100 mg PO BID 10 days #20 caps 09/07/24 Allergies Allergy/AdvReac Type Severity Reaction Status Date / Time No Known Allergies Allergy Verified 08/04/24 14:00 [facility] <KIMMY Snell - Last Filed: 09/07/24 16:54> [facility] Disclaimer: The information contained in this section may have been updated after the patient was seen, as this information can be updated by other users. Medical History (Updated 09/07/24 @ 16:42 by KIMMY Snell) Multiple lung nodules on CT Solid nodule of lung greater than 8 mm in diameter Dyspnea on exertion Encounter for screening for malignant neoplasm of lung Smoking greater than 30 pack years COPD mixed type DDD (degenerative disc disease), lumbar Surgical History History of lung biopsy History of back surgery No history of previous surgery Family History Other No significant family history Social History Smoking Status: Former smoker tobacco type: cigarettes packs per day: 2 smoking status stop date: November 2023 alcohol intake: never substance use type: former substance user current occupational status: employed Travel in the last 8 weeks: None Have you lived/traveled outside US in past 30 days?: No Contact w/someone who lives/traveled outside US past 30 days?: No Exposure to someone with infectious disease in past 14 days?: No Do you have a fever (greater than 100.4 F or 38 C)?: No Have you tested positive for COVID-19: No Exposed to someone with COVID-19 in past 14 days?: No Do you have a sore throat?: No Do you have a cough?: No Do you have any weakness?: No Do you have any diarrhea?: No Are you experiencing any unusual bleeding?: No Do you have any muscle aches/pain?: No Do you have any abdominal pain?: No Are you experiencing loss of taste or smell?: No Other Medical History Have you received the Flu Vaccine for this season: No Have you received the Pneumonia Vaccine: No <KIMMY Snell - Last Filed: 09/07/24 16:54> ROS Obtained: Yes Systems reviewed as appropriate & no additional complaints except as documented Physical Exam <KIMMY Snell - Last Filed: 09/07/24 16:54> General General appearance: alert and in no apparent distress Respiratory Respiratory exam: Present normal lung sounds bilaterally Cardiovascular Cardiovascular exam: Present regular rate Neurological Exam Neurological exam: Present alert and oriented X3 HEART Score <KIMMY Snell - Last Filed: 09/07/24 16:54> HEART Score HEART Score assessment performed?: Yes History (anamnesis): Slightly suspicious ECG: Non-specific disturbance Age: 45-65 years Risk factors: 3 or more risk factors HEART Score: 4 <Den Mendez MD - Last Filed: 09/07/24 15:03> HEART Score Troponin: </= normal limit HEART Score: 4 Critical Care <KIMMY Snell - Last Filed: 09/07/24 16:54> Critical Care Time Critical Care Time: No Medical Decision Making <KIMMY Snell - Last Filed: 09/07/24 16:54> Medical Records Medical records reviewed: Yes I reviewed the patient's medical records. Handy Inquiry Pt receiving controlled substance: No Vital Signs Vital Signs: 09/07/24 13:00 09/07/24 13:30 09/07/24 14:00 Temperature 98.0 F Temperature Source Oral Pulse Rate 68 67 Pulse Rate [Apical] 70 Respiratory Rate 18 13 15 Blood Pressure 121/82 138/84 Blood Pressure [Right Arm] 158/91 H Blood Pressure Mean [Right Arm] 113 Blood Pressure Source [Right Arm] Automatic Cuff Blood Pressure Position [Right Arm] Sitting 02 Sat by Pulse Oximetry 100 98 98 Oxygen Delivery Method Room Air Room Air Room Air 09/07/24 14:30 09/07/24 15:00 09/07/24 15:30 Temperature Temperature Source Pulse Rate 70 71 Pulse Rate [Apical] Respiratory Rate 15 9 L 15 Blood Pressure 119/74 126/79 137/84 Blood Pressure [Right Arm] Blood Pressure Mean [Right Arm] Blood Pressure Source [Right Arm] Blood Pressure Position [Right Arm] 02 Sat by Pulse Oximetry 93 L 95 97 Oxygen Delivery Method Room Air Room Air Room Air 09/07/24 16:00 09/07/24 16:30 Temperature Temperature Source Pulse Rate 72 73 Pulse Rate [Apical] Respiratory Rate 14 14 Blood Pressure 125/83 121/82 Blood Pressure [Right Arm] Blood Pressure Mean [Right Arm] Blood Pressure Source [Right Arm] Blood Pressure Position [Right Arm] 02 Sat by Pulse Oximetry 96 95 Oxygen Delivery Method Room Air Room Air Lab Data Lab results reviewed: Yes I reviewed the patient's lab results. Labs: Lab Results 09/07/24 13:05: WBC 14.3 H, RBC 4.32 L, Hgb 12.4 L, Hct 38.0 L, MCV 88.0, MCH 28.7, MCHC 32.6, RDW 13.2, Plt Count 386, MPV 8.7, Neut % (Auto) 78.3, Lymph % (Auto) 14.1, [place] % (Auto) 6.2, Eos % (Auto) 0.5, Baso % (Auto) 0.6, Neut # (Auto) 11.2 H, Lymph # (Auto) 2.0, [place] # (Auto) 0.9, Eos # (Auto) 0.1, Baso # (Auto) 0.1, PT 10.9, INR 0.97, Sodium 135 L, Potassium 4.4, Chloride 104, Carbon Dioxide 26, Anion Gap 9.4, BUN 11, Creatinine 0.80, Estimated Creat Clear 100, Estimated GFR 99, Est GFR ( Amer) 119, Glucose 118 H, Calcium 9.2, Magnesium 2.1, Total Bilirubin 0.4, AST 22, ALT 19, Alkaline Phosphatase 130 H, Troponin I < 0.01, NT-Pro-B Natriuret Pep 85.1, Total Protein 7.3, Albumin 4.0, Globulin 3.3 H, Albumin/Globulin Ratio 1.2, Lipase 17 L, HIV Ag/Ab Combo Qual Negative 09/07/24 16:10: Troponin I < 0.01 09/07/24 13:05 09/07/24 13:05 Response Orders (Tests/Meds): ED MEDICATIONS Discontinued Medications Generic Name Dose Route Start Last Admin Trade Name Freq PRN Reason Stop Dose Admin Acetaminophen 1,000 mg 09/07/24 13:08 09/07/24 13:12 Acetaminophen 1,000mg/100ml Vial IV 09/07/24 13:09 1,000 mg ONCE ONE Administration Belladonna Alkaloids 60 ml 09/07/24 13:08 09/07/24 13:12 Belladonna Alkaloids 60 Ml Ml PO 09/07/24 13:09 60 ml ONCE ONE Administration Lactated Ringer's 1,000 mls @ 999 mls/hr 09/07/24 13:08 09/07/24 13:12 Lactated Ringer's 1000 Ml Bag IV 09/07/24 14:08 999 mls/hr .Q1H1M ONE Administration Iopamidol 80 ml 09/07/24 13:56 09/07/24 13:57 Iopamidol-370 (76%);100ml Bottle IV 09/07/24 13:57 80 ml ONCE ONE Administration Sodium Chloride 10 ml 09/07/24 13:56 09/07/24 13:57 Sodium Chloride 0.9% 10ml Syr (Rad Only) IV 09/07/24 13:57 10 ml ONCE ONE Administration Sodium Chloride 50 ml 09/07/24 13:56 09/07/24 13:57 0.9 % Sodium Chloride 50 Ml Vial IV 09/07/24 13:57 50 ml ONCE ONE Administration ORDERS Category Date Time Status CT angio chest - dissection Stat Cat Scan 09/07/24 13:07 Completed BNP [NT Pro Brain Natriuretic Pep.] Stat Lab 09/07/24 13:05 Completed CBC w/Auto Diff [Complete Blood Count Auto Diff] Stat Lab 09/07/24 13:05 Completed CMP [Comprehensive Metabolic Panel] Stat Lab 09/07/24 13:05 Completed HIV Combo Stat Lab 09/07/24 13:05 Completed INR [Prothrombin Time INR] Stat Lab 09/07/24 13:05 Completed Lipase Stat Lab 09/07/24 13:05 Completed Magnesium Stat Lab 09/07/24 13:05 Completed Trop I [Troponin I] Stat Lab 09/07/24 13:05 Completed Troponin I Q3H Lab 09/07/24 16:10 Completed Troponin I Q3H Lab 09/07/24 19:15 Ordered MDM Narrative Medical Decision Narrative: In summary patient is a 58-year-old male who presents to the emergency department for evaluation of chest pain. Patient is hemodynamically stable upon arrival, afebrile. Physical exam is remarkable for nonreproducible chest pain on palpation, no epigastric pain on palpation, breath sounds clear and equal bilaterally to the bases without adventitious sounds, abdominal exam is benign with no rebound or guarding or rigidity normal bowel sounds. His radiation tattoo is at the xiphoid process. Differential diagnosis includes pneumonia versus ACS versus PE versus sequela of external beam radiation etc. Initial workup will be conducted with hematologic labs CTA dissection protocol. Initial interventions include Toradol and GI cocktail. Initial workup reviewed by me and his white count is 14.3 with an absolute neutrophil count of 11.2 INR 0.97 chemistry significant for sodium 135 alk phos of 130 lipase is 17 and the remainder of his hematologic labs are nonactionable including an undetectable troponin. My informal interpretation of his CT scan does not show any thrombus or dissection but does show significant neoplastic disease in his chest. Compared from imaging previous this year it appears much more advanced however he has been treated at and I do not know if his presentation is consistent with advancement of disease or unknown to the [facility].. Upon repeat evaluation patient reported complete resolution of his symptoms after initial intervention. Given this the patient was placed in observation status at 1415. Medical necessity for observational status is serial troponins. The patient was provided serial reevaluations continuous cardiac monitoring and pulse oximetry while awaiting results. Shows that his second troponin is also undetectable. Because of these results I think patient is appropriate for discharge with close follow-up with his [facility] cancer doctors, treatment for potential atypical pneumonia with doxycycline and strict return precautions.. Total time in observation was 2 hours and 45 minutes. I was consulted by the DEANNA, and we discussed the complexity of the problems being addressed. I approved the treatment and management plan for this patient's care in the emergency department, thus performing a substantive portion of the medical decision making. Initial workup concerning for worsening malignancy with an undetectably low troponin. Repeat troponin and evaluation pending at time of transfer of care to the oncoming physician, Dr. Jefferson. Patient will likely be able to be discharged home with outpatient oncology follow-up. Den Mendez MD <Den Mendez MD - Last Filed: 09/07/24 15:03> Vital Signs Vital Signs: 09/07/24 13:00 09/07/24 13:30 09/07/24 14:00 Temperature 98.0 F Temperature Source Oral Pulse Rate 68 67 Pulse Rate [Apical] 70 Respiratory Rate 18 13 15 Blood Pressure 121/82 138/84 Blood Pressure [Right Arm] 158/91 H Blood Pressure Mean [Right Arm] 113 Blood Pressure Source [Right Arm] Automatic Cuff Blood Pressure Position [Right Arm] Sitting 02 Sat by Pulse Oximetry 100 98 98 Oxygen Delivery Method Room Air Room Air Room Air 09/07/24 14:30 09/07/24 15:00 09/07/24 15:30 Temperature Temperature Source Pulse Rate 70 71 Pulse Rate [Apical] Respiratory Rate 15 9 L 15 Blood Pressure 119/74 126/79 137/84 Blood Pressure [Right Arm] Blood Pressure Mean [Right Arm] Blood Pressure Source [Right Arm] Blood Pressure Position [Right Arm] 02 Sat by Pulse Oximetry 93 L 95 97 Oxygen Delivery Method Room Air Room Air Room Air 09/07/24 16:00 09/07/24 16:30 Temperature Temperature Source Pulse Rate 72 73 Pulse Rate [Apical] Respiratory Rate 14 14 Blood Pressure 125/83 121/82 Blood Pressure [Right Arm] Blood Pressure Mean [Right Arm] Blood Pressure Source [Right Arm] Blood Pressure Position [Right Arm] 02 Sat by Pulse Oximetry 96 95 Oxygen Delivery Method Room Air Room Air Lab Data Labs: Lab Results 09/07/24 13:05: WBC 14.3 H, RBC 4.32 L, Hgb 12.4 L, Hct 38.0 L, MCV 88.0, MCH 28.7, MCHC 32.6, RDW 13.2, Plt Count 386, MPV 8.7, Neut % (Auto) 78.3, Lymph % (Auto) 14.1, [place] % (Auto) 6.2, Eos % (Auto) 0.5, Baso % (Auto) 0.6, Neut # (Auto) 11.2 H, Lymph # (Auto) 2.0, [place] # (Auto) 0.9, Eos # (Auto) 0.1, Baso # (Auto) 0.1, PT 10.9, INR 0.97, Sodium 135 L, Potassium 4.4, Chloride 104, Carbon Dioxide 26, Anion Gap 9.4, BUN 11, Creatinine 0.80, Estimated Creat Clear 100, Estimated GFR 99, Est GFR ( Amer) 119, Glucose 118 H, Calcium 9.2, Magnesium 2.1, Total Bilirubin 0.4, AST 22, ALT 19, Alkaline Phosphatase 130 H, Troponin I < 0.01, NT-Pro-B Natriuret Pep 85.1, Total Protein 7.3, Albumin 4.0, Globulin 3.3 H, Albumin/Globulin Ratio 1.2, Lipase 17 L, HIV Ag/Ab Combo Qual Negative 09/07/24 16:10: Troponin I < 0.01 Response Orders (Tests/Meds): ED MEDICATIONS Discontinued Medications Generic Name Dose Route Start Last Admin Trade Name Freq PRN Reason Stop Dose Admin Acetaminophen 1,000 mg 09/07/24 13:08 09/07/24 13:12 Acetaminophen 1,000mg/100ml Vial IV 09/07/24 13:09 1,000 mg ONCE ONE Administration Belladonna Alkaloids 60 ml 09/07/24 13:08 09/07/24 13:12 Belladonna Alkaloids 60 Ml Ml PO 09/07/24 13:09 60 ml ONCE ONE Administration Lactated Ringer's 1,000 mls @ 999 mls/hr 09/07/24 13:08 09/07/24 13:12 Lactated Ringer's 1000 Ml Bag IV 09/07/24 14:08 999 mls/hr .Q1H1M ONE Administration Iopamidol 80 ml 09/07/24 13:56 09/07/24 13:57 Iopamidol-370 (76%);100ml Bottle IV 09/07/24 13:57 80 ml ONCE ONE Administration Sodium Chloride 10 ml 09/07/24 13:56 09/07/24 13:57 Sodium Chloride 0.9% 10ml Syr (Rad Only) IV 09/07/24 13:57 10 ml ONCE ONE Administration Sodium Chloride 50 ml 09/07/24 13:56 09/07/24 13:57 0.9 % Sodium Chloride 50 Ml Vial IV 09/07/24 13:57 50 ml ONCE ONE Administration ORDERS Category Date Time Status CT angio chest - dissection Stat Cat Scan 09/07/24 13:07 Completed BNP [NT Pro Brain Natriuretic Pep.] Stat Lab 09/07/24 13:05 Completed CBC w/Auto Diff [Complete Blood Count Auto Diff] Stat Lab 09/07/24 13:05 Completed CMP [Comprehensive Metabolic Panel] Stat Lab 09/07/24 13:05 Completed HIV Combo Stat Lab 09/07/24 13:05 Completed INR [Prothrombin Time INR] Stat Lab 09/07/24 13:05 Completed Lipase Stat Lab 09/07/24 13:05 Completed Magnesium Stat Lab 09/07/24 13:05 Completed Trop I [Troponin I] Stat Lab 09/07/24 13:05 Completed Troponin I Q3H Lab 09/07/24 16:10 Completed Troponin I Q3H Lab 09/07/24 19:15 Ordered ECG Data Tracing #1: ECG Narrative: Independently interpreted by me rate 68, rhythm is regular, axis is normal, no ST elevation in anatomical contiguous leads QTc 392 MDM Narrative Medical Decision Narrative: In summary patient is a 58-year-old male who presents to the emergency department for evaluation of chest pain. Patient is hemodynamically stable upon arrival, afebrile. Physical exam is remarkable for nonreproducible chest pain on palpation, no epigastric pain on palpation, breath sounds clear and equal bilaterally to the bases without adventitious sounds, abdominal exam is benign with no rebound or guarding or rigidity normal bowel sounds. His radiation tattoo is at the xiphoid process. Differential diagnosis includes pneumonia versus ACS versus PE versus sequela of external beam radiation etc. Initial workup will be conducted with hematologic labs CTA dissection protocol. Initial interventions include Toradol and GI cocktail. Initial workup reviewed by me [hematologic labs are remarkable for... Imaging remarkable for... Urinalysis remarkable for]. Upon repeat evaluation [patient had acceptable resolution of symptoms, had persistent pain for which additional interventions were conducted (describe interventions), tolerated p.o., was ambulatory, etc.]. Given this the patient was placed in observation status at 1415. Medical necessity for observational status is serial troponins. The patient was provided serial reevaluations continuous cardiac monitoring and pulse oximetry while awaiting results. [Results of testing during observation remarkable for:]. [Because of these results I feel the patient can be discharged with follow-up with her PCP versus I feel the patient requires admission due to]. Total time in observation was [total time]. I was consulted by the DEANNA, and we discussed the complexity of the problems being addressed. I approved the treatment and management plan for this patient's care in the emergency department, thus performing a substantive portion of the medical decision making. Initial workup concerning for worsening malignancy with an undetectably low troponin. Repeat troponin and evaluation pending at time of transfer of care to the oncoming physician, Dr. Jefferson. Patient will likely be able to be discharged home with outpatient oncology follow-up. Den Mendez MD
--- NOTE | 2024-09-07 13:07 | CT_ITS ---
PROCEDURE INFORMATION: Exam: CTA Chest With Contrast Exam date and time: 09/07/2024 1:50 PM Age: 58 years old Clinical indication: Other: Pressure, pain; Additional info: Cp, lungs CA, S/P ebr TECHNIQUE: Imaging protocol: Computed tomographic angiography of the chest with contrast. Exam focused on the arteries. 3D rendering (Not supervised by radiologist): MIP and/or 3D reconstructed images were created by the technologist. Radiation optimization: All CT scans at this facility use at least one of these dose optimization techniques: automated exposure control; mA and/or kV adjustment per patient size (includes targeted exams where dose is matched to clinical indication); or iterative reconstruction. Contrast material: ISOVUE 370; Contrast volume: 80 ml; Contrast route: INTRAVENOUS (IV); COMPARISON: CT ANGIO CHEST PE PROTOCOL 02/02/2024 7:54 AM FINDINGS: Pulmonary arteries: No evidence of pulmonary embolus to the segmental level. Aorta: No aneurysm of the aorta. No dissection of the aorta. Lungs: New spiculated density in the anterior aspect of the left frontal lobe 2.3 x 1.4 cm. (series 5, image 32 This area has increased significantly in size. Previously was an 8 mm nodule.. Nodule in the posterior aspect of the right upper lobe 12.5 x 11.5 mm (series 5, image 19).. Previously 11 x 11 mm. 10 mm pleural-based nodule in the lingula the previously measured 8.5 mm. Moderate panlobular emphysematous changes Pleural spaces: Unremarkable. No pneumothorax. No pleural effusion. Heart: Unremarkable. No cardiomegaly. No pericardial effusion. Lymph nodes: No pathologic node in the preaortic region 20 x 13 mm. Additional pathologic node in the preaortic region 20 x 18 mm. Pathologic node in the AP window 27 x 18 mm. Pathologic node in the left hilum 17 x 18 mm pathologic node in the precarinal region 15 x 13 mm.. Bones/joints: Unremarkable. No acute fracture. Soft tissues: Unremarkable. IMPRESSION: 1. New spiculated density in the anterior aspect of the left frontal lobe 2.3 x 1.4 cm. (series 5, image 32 This area has increased significantly in size. Previously was an 8 mm nodule.. Consistent with lung cancer 2. Nodule in the posterior aspect of the right upper lobe 12.5 x 11.5 mm (series 5, image 19).. Previously 11 x 11 mm. 3. 10 mm pleural-based nodule in the lingula the previously measured 8.5 mm. 4. No evidence of pulmonary embolus to the segmental level. 5. No pathologic node in the preaortic region 20 x 13 mm. Additional pathologic node in the preaortic region 20 x 18 mm. Pathologic node in the AP window 27 x 18 mm. Pathologic node in the left hilum 17 x 18 mm pathologic node in the precarinal region 15 x 13 mm.. COMMENTS: The presence of pulmonary emphysema on CT is an independent risk factor for lung cancer. In the absence of a history or active diagnosis of lung cancer, it is recommended that this patient with emphysema be evaluated for enrollment in a low dose CT lung cancer screening program.
[2024-09-07] MEDS: LACTATED RINGERS 1000ML 1,000 ML 999 ML IV (13:12)
[2024-09-07] MEDS: BELLADONNA ALKALOIDS 60 ML ML PO (13:12)
[2024-09-07] MEDS: ACETAMINOPHEN 1,000MG/100ML VIAL 1000 MG IV (13:12)
[2024-09-07 13:22] LABS: INR 0.97 (0.9-1.1); Prothrombin Time 10.9 seconds (10.1-12.5)
[2024-09-07 13:25] LABS: Hemoglobin 12.4 g/dL (14.1-18.0); Red Blood Count 4.32 M/mm3 (4.60-6.20); White Blood Count 14.3 K/mm3 (4.8-10.8)
[2024-09-07 13:26] LABS: Basophils # 0.1 K/mm3 (0-0.2); Basophils % 0.6 % (0.1-2.0); Chloride 104 mmol/L (98-107); Eosinophils # 0.1 K/mm3 (0.0-0.4); Eosinophils % 0.5 % (0.1-12.0); Lymphocytes % 14.1 % (10-50); Mean Corpuscular HGB Conc 32.6 g/dL (31.8-35.4); Mean Corpuscular Hemoglobin 28.7 pg (27.0-31.2); Mean Platelet Volume 8.7 fl (7.4-10.4); Monocytes # 0.9 K/mm3 (0.1-1.0); Monocytes % 6.2 % (1.7-9.3); Neutrophils # 11.2 K/mm3 (1.8-7.8); Neutrophils % 78.3 % (37.0-80.0); Platelet Count 386 K/mm3 (142-424); Potassium 4.4 mmoL/L (3.5-5.1); Red Cell Distribution Width 13.2 % (11.5-17.5); Sodium 135 mmol/L (136-145)
[2024-09-07 13:29] LABS: Alanine Aminotransferase 19 U/L (12-78); Albumin/Globulin Ratio 1.2 (1.1-1.8); Alkaline Phosphatase 130 U/L (38-126); Anion Gap 9.4 mEq/L (5-15); Aspartate Amino Transferase 22 U/L (17-59); Bilirubin,Total 0.4 mg/dl (0.2-1.3); Blood Urea Nitrogen 11 mg/dl (9-20); Calcium 9.2 mg/dl (8.4-10.2); Carbon Dioxide 26 mmol/L (22.0-30.0); Creatinine Clearance Estimated 100 mL/min (50-200); Estimated Glomerular Filt Rate 99 ml/min (>60); GFR (African American) 119 ML/MIN (>60); Globulin 3.3 g/dL (1.3-3.2); Glucose 118 mg/dl (74-100); Lipase 17 U/L (23-300); Magnesium 2.1 mg/dl (1.6-2.3); Total Protein,Serum 7.3 g/dl (6.3-8.2)
[2024-09-07 13:39] LABS: NT Pro Brain Natriuretic Pep. 85.1 pg/mL (0-125)
[2024-09-07 13:45] LABS: Troponin I < 0.01 ng/ml (0.00-0.034)
[2024-09-07] MEDS: IOPAMIDOL-370 (76%);100ML BOTTLE 80 ML IV (13:57)
[2024-09-07] MEDS: SODIUM CHLORIDE 0.9% 10ML SYR (RAD ONLY) 10 ML IV (13:57)
[2024-09-07] MEDS: 0.9 % SODIUM CHLORIDE 50 ML VIAL IV (13:57)
[2024-09-07 15:12] LABS: HIV Combo NEGATIVE (Negative)
[2024-09-07 16:44] LABS: Troponin I < 0.01 ng/ml (0.00-0.034)
[2024-09-07] MEDS: DOXYCYCLINE HYCL 100 MG TABLET PO (16:59)
== END 2024-09-07 17:06 | disposition home or self-care (01) ==
PROVIDERS: Emergency Medicine; Physician Assistant; Emergency Provider Emergency Medicine; PCP Nurse Practitioner Family
DX: C80.1 Malignant (primary) neoplasm, unspecified (principal); R07.9 Chest pain, unspecified
CPT/HCPCS: 71275; 80053; 83690; 83735; 83880; 84484; 85025; 85610; 87389; 93005; 96361; 96374; 99285; J0131; J7120; Q9967

== ENCOUNTER 2024-12-06 11:50 | Outpatient (CLI) | payer MEDICAID, SELFPAY ==
[2024-12-06 12:12] LABS: Basophils % 0.5 % (0.1-2.0); Eosinophils # 0.1 K/mm3 (0.0-0.4); Hematocrit 30.6 % (42.0-52.0); Hemoglobin 9.6 g/dL (14.1-18.0); Lymphocytes # 0.8 K/mm3 (0.7-4.5); Lymphocytes % 9.4 % (10-50); Mean Corpuscular HGB Conc 31.4 g/dL (31.8-35.4); Mean Corpuscular Hemoglobin 27.8 pg (27.0-31.2); Mean Corpuscular Volume 88.7 fl (80-94); Mean Platelet Volume 8.3 fl (7.4-10.4); Monocytes # 0.5 K/mm3 (0.1-1.0); Neutrophils # 7.3 K/mm3 (1.8-7.8); Neutrophils % 82.1 % (37.0-80.0); Platelet Count 418 K/mm3 (142-424); Red Blood Count 3.45 M/mm3 (4.60-6.20); Red Cell Distribution Width 15.5 % (11.5-17.5); White Blood Count 8.9 K/mm3 (4.8-10.8)
[2024-12-06 12:32] LABS: Alanine Aminotransferase 24 U/L (12-78); Albumin Level 3.8 g/dl (3.5-5.0); Albumin/Globulin Ratio 1.2 (1.1-1.8); Alkaline Phosphatase 141 U/L (38-126); Anion Gap 4.5 mEq/L (5-15); Aspartate Amino Transferase 23 U/L (17-59); Bilirubin,Total 0.4 mg/dl (0.2-1.3); Blood Urea Nitrogen 16 mg/dl (9-20); Calcium 11.1 mg/dl (8.4-10.2); Carbon Dioxide 33 mmol/L (22.0-30.0); Chloride 103 mmol/L (98-107); Estimated Glomerular Filt Rate 99 ml/min (>60); GFR (African American) 119 ML/MIN (>60); Globulin 3.3 g/dL (1.3-3.2); Glucose 122 mg/dl (74-100); Magnesium 2.2 mg/dl (1.6-2.3); Potassium 4.5 mmoL/L (3.5-5.1); Sodium 136 mmol/L (136-145); Total Protein,Serum 7.1 g/dl (6.3-8.2)
== END 2024-12-06 23:59 | disposition home or self-care (01) ==
LOC: LAB 11:51
PROVIDERS: PCP Nurse Practitioner Family; Visit Provider Internal Medicine Hematology & Oncology
DX: C34.12 Malignant neoplasm of upper lobe, left bronchus or lung (principal)
CPT/HCPCS: 36415; 80053; 83735; 85025

== ENCOUNTER 2024-12-13 10:50 | Outpatient (CLI) | payer MEDICAID, SELFPAY ==
[2024-12-13 11:14] LABS: Alanine Aminotransferase 21 U/L (12-78); Albumin Level 3.4 g/dl (3.5-5.0); Alkaline Phosphatase 123 U/L (38-126); Anion Gap 14.5 mEq/L (5-15); Aspartate Amino Transferase 20 U/L (17-59); Bilirubin,Total 0.4 mg/dl (0.2-1.3); Blood Urea Nitrogen 13 mg/dl (9-20); Calcium 9.8 mg/dl (8.4-10.2); Carbon Dioxide 26 mmol/L (22.0-30.0); Chloride 102 mmol/L (98-107); Estimated Glomerular Filt Rate 99 ml/min (>60); GFR (African American) 119 ML/MIN (>60); Globulin 3.5 g/dL (1.3-3.2); Glucose 117 mg/dl (74-100); Potassium 4.5 mmoL/L (3.5-5.1); Sodium 138 mmol/L (136-145); Total Protein,Serum 6.9 g/dl (6.3-8.2)
[2024-12-13 11:21] LABS: Basophils # 0.1 K/mm3 (0-0.2); Basophils % 0.6 % (0.1-2.0); Eosinophils % 0.4 % (0.1-12.0); Hematocrit 30.6 % (42.0-52.0); Hemoglobin 9.3 g/dL (14.1-18.0); Lymphocytes # 0.5 K/mm3 (0.7-4.5); Lymphocytes % 5.6 % (10-50); Mean Corpuscular HGB Conc 30.4 g/dL (31.8-35.4); Mean Corpuscular Hemoglobin 27.1 pg (27.0-31.2); Mean Corpuscular Volume 89.2 fl (80-94); Mean Platelet Volume 8.4 fl (7.4-10.4); Monocytes # 0.4 K/mm3 (0.1-1.0); Monocytes % 4.4 % (1.7-9.3); Neutrophils # 7.4 K/mm3 (1.8-7.8); Platelet Count 220 K/mm3 (142-424); Red Blood Count 3.43 M/mm3 (4.60-6.20); Red Cell Distribution Width 16.5 % (11.5-17.5); White Blood Count 8.3 K/mm3 (4.8-10.8)
== END 2024-12-13 23:59 | disposition home or self-care (01) ==
LOC: LAB 10:51
PROVIDERS: PCP Nurse Practitioner Family; Visit Provider Internal Medicine Hematology & Oncology
DX: C34.12 Malignant neoplasm of upper lobe, left bronchus or lung (principal)
CPT/HCPCS: 36415; 80053; 85025

== ENCOUNTER 2024-12-20 10:57 | Outpatient (CLI) | payer MEDICAID, SELFPAY ==
[2024-12-20 11:27] LABS: Basophils % 0.4 % (0.1-2.0); Eosinophils % 0.4 % (0.1-12.0); Hematocrit 29.9 % (42.0-52.0); Hemoglobin 9.3 g/dL (14.1-18.0); Lymphocytes # 0.4 K/mm3 (0.7-4.5); Lymphocytes % 7.4 % (10-50); Mean Corpuscular HGB Conc 31.1 g/dL (31.8-35.4); Mean Corpuscular Hemoglobin 27.4 pg (27.0-31.2); Mean Corpuscular Volume 87.9 fl (80-94); Mean Platelet Volume 9.2 fl (7.4-10.4); Monocytes # 0.2 K/mm3 (0.1-1.0); Neutrophils % 87.1 % (37.0-80.0); Platelet Count 132 K/mm3 (142-424); Red Cell Distribution Width 17.2 % (11.5-17.5); White Blood Count 5.7 K/mm3 (4.8-10.8)
[2024-12-20 12:11] LABS: Alanine Aminotransferase 16 U/L (12-78); Albumin Level 3.6 g/dl (3.5-5.0); Albumin/Globulin Ratio 1.1 (1.1-1.8); Alkaline Phosphatase 135 U/L (38-126); Anion Gap 13.5 mEq/L (5-15); Aspartate Amino Transferase 15 U/L (17-59); Bilirubin,Total 0.8 mg/dl (0.2-1.3); Blood Urea Nitrogen 16 mg/dl (9-20); Calcium 9.6 mg/dl (8.4-10.2); Carbon Dioxide 26 mmol/L (22.0-30.0); Chloride 99 mmol/L (98-107); Estimated Glomerular Filt Rate 98 ml/min (>60); GFR (African American) 119 ML/MIN (>60); Globulin 3.2 g/dL (1.3-3.2); Glucose 123 mg/dl (74-100); Magnesium 1.8 mg/dl (1.6-2.3); Potassium 4.5 mmoL/L (3.5-5.1); Sodium 134 mmol/L (136-145); Total Protein,Serum 6.8 g/dl (6.3-8.2)
== END 2024-12-20 23:59 | disposition home or self-care (01) ==
LOC: LAB 11:00
PROVIDERS: PCP Nurse Practitioner Family; Visit Provider Internal Medicine Hematology & Oncology
DX: C34.12 Malignant neoplasm of upper lobe, left bronchus or lung (principal)
CPT/HCPCS: 36415; 80053; 83735; 85025

== ENCOUNTER 2024-12-27 10:54 | Outpatient (CLI) | payer MEDICAID, SELFPAY ==
[2024-12-27 11:28] LABS: Basophils % 0.5 % (0.1-2.0); Eosinophils % 0.9 % (0.1-12.0); Hematocrit 26.9 % (42.0-52.0); Hemoglobin 8.2 g/dL (14.1-18.0); Lymphocytes # 0.3 K/mm3 (0.7-4.5); Lymphocytes % 13.3 % (10-50); Mean Corpuscular HGB Conc 30.5 g/dL (31.8-35.4); Mean Corpuscular Hemoglobin 27.6 pg (27.0-31.2); Mean Corpuscular Volume 90.6 fl (80-94); Mean Platelet Volume 8.8 fl (7.4-10.4); Monocytes # 0.2 K/mm3 (0.1-1.0); Monocytes % 6.9 % (1.7-9.3); Neutrophils # 1.7 K/mm3 (1.8-7.8); Neutrophils % 77.9 % (37.0-80.0); Nucleated Red Blood Cells # 0 10^3/uL; Nucleated Red Blood Cells % 0 %; Platelet Count 193 K/mm3 (142-424); Red Blood Count 2.97 M/mm3 (4.60-6.20); Red Cell Distribution Width 18.4 % (11.5-17.5); Red Cell Distribution Width-SD 58.5 fL; White Blood Count 2.2 K/mm3 (4.8-10.8)
[2024-12-27 11:45] LABS: Albumin Level 3.6 g/dl (3.5-5.0); Chloride 101 mmol/L (98-107); Sodium 135 mmol/L (136-145)
[2024-12-27 11:46] LABS: Potassium 4.3 mmoL/L (3.5-5.1)
[2024-12-27 11:48] LABS: Alanine Aminotransferase 20 U/L (12-78); Albumin/Globulin Ratio 1.2 (1.1-1.8); Anion Gap 14.3 mEq/L (5-15); Aspartate Amino Transferase 20 U/L (17-59); Blood Urea Nitrogen 12 mg/dl (9-20); Carbon Dioxide 24 mmol/L (22.0-30.0); Estimated Glomerular Filt Rate 115 ml/min (>60); GFR (African American) 139 ML/MIN (>60); Globulin 3.1 g/dL (1.3-3.2); Total Protein,Serum 6.7 g/dl (6.3-8.2)
[2024-12-27 11:49] LABS: Alkaline Phosphatase 112 U/L (38-126); Bilirubin,Total 0.4 mg/dl (0.2-1.3); Calcium 9.1 mg/dl (8.4-10.2); Glucose 129 mg/dl (74-100); Magnesium 1.6 mg/dl (1.6-2.3)
== END 2024-12-27 23:59 | disposition home or self-care (01) ==
LOC: LAB 10:54
PROVIDERS: PCP Nurse Practitioner Family; Visit Provider Internal Medicine Hematology & Oncology
DX: C34.12 Malignant neoplasm of upper lobe, left bronchus or lung (principal)
CPT/HCPCS: 36415; 80053; 83735; 85025

== ENCOUNTER 2025-01-06 14:44 | Outpatient (CLI) | payer MEDICAID, SELFPAY ==
[2025-01-06 15:17] LABS: Basophils % 0.2 % (0.1-2.0); Eosinophils % 0.2 % (0.1-12.0); Hematocrit 28.5 % (42.0-52.0); Hemoglobin 8.9 g/dL (14.1-18.0); Lymphocytes # 0.4 K/mm3 (0.7-4.5); Lymphocytes % 5.1 % (10-50); Mean Corpuscular HGB Conc 31.2 g/dL (31.8-35.4); Mean Corpuscular Hemoglobin 28.6 pg (27.0-31.2); Mean Corpuscular Volume 91.6 fl (80-94); Mean Platelet Volume 8.1 fl (7.4-10.4); Monocytes # 0.7 K/mm3 (0.1-1.0); Monocytes % 8.7 % (1.7-9.3); Neutrophils # 7.1 K/mm3 (1.8-7.8); Neutrophils % 84.7 % (37.0-80.0); Nucleated Red Blood Cells # 0 10^3/uL; Nucleated Red Blood Cells % 0 %; Platelet Count 252 K/mm3 (142-424); Red Blood Count 3.11 M/mm3 (4.60-6.20); Red Cell Distribution Width 20.2 % (11.5-17.5); White Blood Count 8.4 K/mm3 (4.8-10.8)
[2025-01-06 15:20] LABS: Albumin Level 3.7 g/dl (3.5-5.0); Chloride 101 mmol/L (98-107); Potassium 3.8 mmoL/L (3.5-5.1); Sodium 137 mmol/L (136-145)
[2025-01-06 15:23] LABS: Alanine Aminotransferase 26 U/L (12-78); Alkaline Phosphatase 125 U/L (38-126); Anion Gap 13.8 mEq/L (5-15); Aspartate Amino Transferase 26 U/L (17-59); Bilirubin,Total 0.3 mg/dl (0.2-1.3); Blood Urea Nitrogen 9 mg/dl (9-20); Calcium 9.4 mg/dl (8.4-10.2); Carbon Dioxide 26 mmol/L (22.0-30.0); Estimated Glomerular Filt Rate 98 ml/min (>60); GFR (African American) 119 ML/MIN (>60); Globulin 3.6 g/dL (1.3-3.2); Glucose 180 mg/dl (74-100); Total Protein,Serum 7.3 g/dl (6.3-8.2)
[2025-01-06 15:30] LABS: MANUAL DIFFERENTIAL MANUAL DIFFERENTIAL (MANUAL DIFF)
[2025-01-06 16:04] LABS: Anisocytosis 1+; Lymphocytes % 5 % (10-50); Monocytes % 6 % (2-9); Neutrophils % 89 % (42-76); Platelet Estimate Normal; Total Cells Counted 100
[2025-01-06 16:05] LABS: Macrocytosis 1+; Ovalocytes 1+; Poikilocytosis 1+; Tear Drop Cells 1+
[2025-01-06 16:24] LABS: HIV Combo NEGATIVE (Negative)
[2025-01-06 16:33] LABS: Hepatitis C Ab Qual. W/ RFX NEGATIVE (Negative)
[2025-01-07 08:13] LABS: Hep B Core Ab, Total Negative (Negative); Hep B Surface Ab, Qual Non Reactive (.); Hep Be Ag Negative (Negative)
[2025-01-07 15:38] LABS: RPR W/RFX Titers Nonreactive (Nonreactive)
[2025-01-08 17:38] LABS: QuantiFERON-TB Gold Plus Negative (Negative)
== END 2025-01-06 23:59 | disposition home or self-care (01) ==
LOC: LAB 14:45
PROVIDERS: PCP Nurse Practitioner Family; Visit Provider Family Medicine
DX: F11.21 Opioid dependence, in remission (principal); F10.21 Alcohol dependence, in remission
CPT/HCPCS: 36415; 80053; 85007; 85025; 85027; 86480; 86592; 86704; 86706; 86803; 87350; 87389

== ENCOUNTER 2025-01-11 11:27 | Outpatient (CLI) | payer MEDICAID, SELFPAY ==
--- NOTE | 2025-01-11 11:30 | CT_ITS ---
FINAL REPORT TECHNIQUE: After the administration of intravenous contrast, axial images were obtained through the abdomen and pelvis by computed tomography. This study was performed with technique to keep radiation doses as low as reasonably achievable, (ALARA). Individualized dose reduction techniques using automated exposure control or adjustment of the MA and/or KV according to the patient's size were employed. CLINICAL HISTORY: abd/flank pain pt states right sided pain x1 week COMPARISON: 09/07/2024 FINDINGS: Abdomen: The lung bases demonstrate moderate changes of centrilobular emphysema. A nodule is seen in the inferior lingula measuring 10 mm, unchanged from prior exam. There are small, low-attenuation foci in the liver likely related to benign cysts. Liver measures 19 cm. Spleen measures 12 cm. Pancreas is unremarkable. There is a nodule in the right adrenal gland measuring 1.5 cm in greatest dimension seen on image 25 of series 2. Left adrenal gland is unremarkable. There is a rounded, somewhat ill-defined, low-attenuation focus in the superior left kidney measuring 2.7 cm. This was not seen on prior exam from January 2024. Right kidney is surgically absent. Pelvis: Urinary bladder is decompressed. The appendix is normal. Bowel is unremarkable. There is no acute osseous abnormality. There is no adenopathy or free fluid. IMPRESSION: Stable, 1 cm nodule in the inferior lingula. Surgically absent right kidney. 1.5 cm, indeterminate right adrenal nodule. New, 2.6 cm low-attenuation lesion in the superior pole of the left kidney concerning for neoplasm or less likely, abscess. Urologic evaluation highly recommended. Reviewed, Interpreted and Dictated by Scottie Claros MD Transcribed by Yolanda Carranza Authenticated and [facility]
[2025-01-11] MEDS: IOPAMIDOL-370 (76%);100ML BOTTLE 75 ML IV (11:45)
[2025-01-11] MEDS: BARIUM SULFATE(READI-CAT2);450ML BOTTLE 450 ML PO (11:45)
[2025-01-11] MEDS: SODIUM CHLORIDE 0.9% 10ML SYR (RAD ONLY) 10 ML IV (11:45)
== END 2025-01-11 23:59 | disposition home or self-care (01) ==
LOC: RAD 11:28
PROVIDERS: PCP Family Medicine; Visit Provider Family Medicine
DX: N20.0 Calculus of kidney (principal); K59.00 Constipation, unspecified; R10.9 Unspecified abdominal pain; Z80.0 Family history of malignant neoplasm of digestive organs
CPT/HCPCS: 74177; Q9967

== ENCOUNTER 2025-01-24 13:42 | Emergency (ER) | payer MEDICAID, SELFPAY ==
[2025-01-24 13:53] VITALS: BP 86/53; PULSE 105; O2SAT 99
--- NOTE | 2025-01-24 13:55 | ED_ITS ---
Discharge Plan Disposition Patient Disposition: Home, Self-Care Condition: Good Prescriptions Prescriptions: No Action buprenorphine-naloxone 8-2 mg tablet, sublingual 2 tab SL DAILY Vraylar 1.5 mg capsule 1.5 mg PO DAILY Qty: 90 2RF ipratropium-albuterol 0.5 mg-3 mg(2.5 mg base)/3 mL solution for nebulization 3 ml inhalation QID PRN (Reason: shortness of breath or wheezing) 90 Days Qty: 270 3RF Breztri Aerosphere 160-9-4.8 mcg/actuation HFA aerosol inhaler 2 inh inhalation BID 90 Days Qty: 10.7 3RF albuterol sulfate 90 mcg/actuation HFA aerosol inhaler 2 inh inhalation QID PRN (Reason: shortness of breath or wheezing) 90 Days Qty: 8.5 2RF nicotine (polacrilex) 2 mg gum 2 mg buccal Q2H PRN (Reason: nicotine cravings) Qty: 396 0RF Rx Instructions: Weeks 1 to 6: Chew 1 piece every 2 hours As NEEDED Weeks 7 to 9: Chew 1 piece every 4 hors As NEEDED Weeks 1o to 12: Chew 1 piece every 8 hours As NEEDED olanzapine 5 mg tablet 5 mg PO gabapentin 800 mg tablet 800 mg PO TID Qty: 90 3RF polyethylene glycol 3350 [Miralax] 17 gram/dose powder 17 g PO DAILY PRN (Reason: constipation) 4 Days Qty: 68 0RF docusate sodium [Colace] 100 mg capsule 100 mg PO DAILY Qty: 30 0RF tamsulosin [Flomax] 0.4 mg capsule 0.4 mg PO DAILY Qty: 14 0RF cyclobenzaprine 10 mg tablet 10 mg PO BID Patient Comments: TAKE ONE TABLET BY MOUTH 2 TIMES A DAY NEEDED FOR MUSCLE SPASMS omeprazole 40 mg capsule,delayed release(DR/EC) 40 mg PO DAILY Qty: 90 3RF Referrals Follow up/Referrals: Constantine Stiles APRN [Primary Care Provider] - See instructions Activity Restrictions/Add. Instructions Additional Instructions/Restrictions: As we discussed please follow-up closely with your PCP for recheck of your labs and your blood pressure. I recommend taking your blood pressure at least once or twice a day. If you have any shortness of breath decreased exercise tolerance chest pain dizziness follow-up with your PCP or return to the ER as needed. Clinical Impressions Clinical Impression: Blood pressure, low, incidental finding Print Language Print Language: Angolan Discharge ED Provider: Perry Gerber General Adult HPI <KIMMY Snell - Last Filed: 01/24/25 15:04> General Chief complaint: Weakness Stated complaint: Ref. Cinthyaangi. Low BP Time Seen by Provider: 01/24/25 13:54 History of Present Illness HPI narrative: Patient presents from the pulmonary clinic for low blood pressure. Patient has a past medical history of renal and lung cancer status postradiation and currently on chemotherapy for the last month. Patient states that he has lost about 20 to 25 pounds since the start of his cancer journey. 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 Patient himself is asymptomatic has no chest pain no lightheadedness no dizziness no decreased exercise tolerance. He denies fever chills hemoptysis hematochezia melena nausea vomit diarrhea. He is not on any blood pressure medications. Related Data Home Medications ?Medication ?Instructions ?Recorded ?Confirmed buprenorphine 8 mg-naloxone 2 mg 2 tab sublingual DAILY . 04/08/22 01/24/25 sublingual tablet olanzapine 5 mg tablet 5 mg PO 01/12/25 01/24/25 cyclobenzaprine 10 mg tablet 10 mg PO BID 01/24/25 01/24/25 Previous Rx's ?Medication ?Instructions ?Recorded ipratropium 0.5 mg-albuterol 3 mg 3 ml inhalation QID PRN shortness 01/30/24 (2.5 mg base)/3 mL nebulization of breath or wheezing 90 days #270 soln mL cariprazine 1.5 mg capsule 1.5 mg PO DAILY #90 caps 04/20/24 (Vraylar) albuterol sulfate 90 mcg/actuation 2 inh inhalation QID PRN shortness 07/01/24 aerosol inhaler of breath or wheezing 90 days #8.5 grams budesonide 160 mcg-glycopyr 9 2 inh inhalation BID 90 days #10.7 07/01/24 mcg-formot 4.8 mcg/actuation HFA grams inhaler (Breztri Aerosphere) nicotine (polacrilex) 2 mg gum 2 mg buccal Q2H PRN nicotine 07/01/24 cravings #396 ea omeprazole 40 mg capsule,delayed 40 mg PO DAILY #90 caps 08/04/24 release docusate sodium 100 mg capsule 100 mg PO DAILY #30 caps 01/06/25 (Colace) polyethylene glycol 3350 17 17 g PO DAILY PRN constipation 4 01/06/25 gram/dose oral powder (Miralax) days #68 grams tamsulosin 0.4 mg capsule (Flomax) 0.4 mg PO DAILY #14 caps 01/06/25 gabapentin 800 mg tablet 800 mg PO TID #90 tabs 01/12/25 Allergies Allergy/AdvReac Type Severity Reaction Status Date / Time No Known Allergies Allergy Verified 01/24/25 13:15 [facility] <KIMMY Snell - Last Filed: 01/24/25 15:04> [facility] Disclaimer: The information contained in this section may have been updated after the patient was seen, as this information can be updated by other users. Medical History Lung cancer Multiple lung nodules on CT Solid nodule of lung greater than 8 mm in diameter Dyspnea on exertion Encounter for screening for malignant neoplasm of lung Smoking greater than 30 pack years COPD mixed type DDD (degenerative disc disease), lumbar Surgical History History of lung biopsy History of back surgery No history of previous surgery Family History Other No significant family history Social History Smoking Status: Former smoker tobacco type: cigarettes packs per day: 2 smoking status stop date: November 2023 alcohol intake: never substance use type: former substance user current occupational status: employed Travel in the last 8 weeks?: None Have you lived/traveled outside US in past 30 days?: No Contact w/someone who lives/traveled outside US past 30 days?: No Exposure to someone with infectious disease in past 14 days?: No Do you have a fever (greater than 100.4 F or 38 C)?: No Have you tested positive for COVID-19?: No Exposed to someone with COVID-19 in past 14 days?: No Do you have a sore throat?: No Do you have a cough?: No Do you have any weakness?: No Do you have any diarrhea?: No Are you experiencing any unusual bleeding?: No Do you have any muscle aches/pain?: No Do you have any abdominal pain?: No Are you experiencing loss of taste or smell?: No Other Medical History Have you received the Flu Vaccine for this season: No Have you received the Pneumonia Vaccine: No <KIMMY Snell - Last Filed: 01/24/25 15:04> ROS Obtained: Yes Systems reviewed as appropriate & no additional complaints except as documented Physical Exam <KIMMY Snell - Last Filed: 01/24/25 15:04> General General appearance: alert and in no apparent distress Respiratory Respiratory exam: Present normal lung sounds bilaterally Cardiovascular Cardiovascular exam: Present tachycardia Extremities Exam Extremities exam: Present full ROM Neurological Exam Neurological exam: Present alert and oriented X3 Medical Decision Making <KIMMY Snell - Last Filed: 01/24/25 15:04> Medical Records Medical records reviewed: Yes I reviewed the patient's medical records. Screening: Per USPSTF and CDC recommendations, given the prevalence of disease in our region, it is our hospital?s policy to screen for HIV and viral Hepatitis for all patients aged 18 and over and those with ongoing risk factors. Handy Inquiry Pt receiving controlled substance: No Vital Signs: 01/24/25 13:53 01/24/25 14:00 01/24/25 14:00 Temperature 97.7 F Temperature Source Oral Pulse Rate 105 H 95 H Pulse Rate [Apical] 94 H Respiratory Rate 18 10 L Blood Pressure 86/53 L 91/66 L Blood Pressure [Right Arm] 95/61 L Blood Pressure Mean [Right Arm] 72 Blood Pressure Source Blood Pressure Source [Right Arm] Automatic Cuff Blood Pressure Position Blood Pressure Position [Right Arm] Sitting 02 Sat by Pulse Oximetry 99 97 99 Oxygen Delivery Method Room Air Room Air 01/24/25 14:30 01/24/25 14:44 01/24/25 15:00 Temperature 97.8 F Temperature Source Oral Pulse Rate 97 H 88 84 Pulse Rate [Apical] Respiratory Rate 16 14 18 Blood Pressure 82/43 L 95/61 L 112/64 Blood Pressure [Right Arm] Blood Pressure Mean [Right Arm] Blood Pressure Source Automatic Cuff Blood Pressure Source [Right Arm] Blood Pressure Position Sitting Blood Pressure Position [Right Arm] 02 Sat by Pulse Oximetry 95 100 Oxygen Delivery Method Room Air Room Air Room Air Lab Data Lab results reviewed: Yes I reviewed the patient's lab results. Lab Results 01/24/25 14:15: WBC 10.9 H, RBC 2.90 L, Hgb 8.5 L, Hct 26.5 L, MCV 91.4, MCH 29.3, MCHC 32.1, RDW 19.6 H, Plt Count 259, MPV 8.8, Neut % (Auto) 91.8 H, Lymph % (Auto) 3.7 L, [place] % (Auto) 1.4 L, Eos % (Auto) 0.5, Baso % (Auto) 0.4, Neut # (Auto) 10.0 H, Lymph # (Auto) 0.4 L, [place] # (Auto) 0.2, Eos # (Auto) 0.1, Baso # (Auto) 0.0, Total Counted 100, Neutrophils % (Manual) 89 H, Band Neutrophils % 4, Lymphocytes % (Manual) 6 L, Monocytes % (Manual) 1 L, Platelet Estimate Normal, Hypochromasia 1+, Poikilocytosis 1+, Anisocytosis 2+, PT 10.9, INR 0.97, Sodium 133 L, Potassium 4.2, Chloride 102, Carbon Dioxide 24, Anion Gap 11.2, B UN 28 H, Creatinine 1.20, Estimated Creat Clear 59, Estimated GFR 62, Est GFR ( Amer) 74, Glucose 113 H, Lactate 0.8, Calcium 9.5, Total Bilirubin 0.6, AST 25, ALT 44, Alkaline Phosphatase 203 H, NT-Pro-B Natriuret Pep 514 H, Total Protein 6.7, Albumin 3.4 L, Globulin 3.3 H, Albumin/Globulin Ratio 1.0 L, Procalcitonin 1.64 01/24/25 14:15 01/24/25 14:15 Orders (Tests/Meds): ED MEDICATIONS Discontinued Medications Generic Name Dose Route Start Last Admin Trade Name Freq PRN Reason Stop Dose Admin Sodium Chloride 1,000 mls @ 999 mls/hr 01/24/25 14:01 01/24/25 14:16 Sod Chlor 0.9% 1000ml Bag IV 01/24/25 15:01 999 mls/hr .Q1H1M ONE Administration ORDERS Category Date Time Status BNP [NT Pro Brain Natriuretic Pep.] Stat Lab 01/24/25 14:15 Completed CBC w/Auto Diff [Complete Blood Count Auto Diff] Stat Lab 01/24/25 14:15 Completed CMP [Comprehensive Metabolic Panel] Stat Lab 01/24/25 14:15 Completed INR [Prothrombin Time INR] Stat Lab 01/24/25 14:15 Completed Lactic Acid Stat Lab 01/24/25 14:15 Completed Procalcitonin Stat Lab 01/24/25 14:15 Completed Blood Culture Stat Micro 01/24/25 14:15 Received Medical Decision Narrative: In summary patient is a 59-year-old male who presents to the emergency department for evaluation of low blood pressure. Patient is arriving with a blood pressure of 86/53 with a heart rate of 105 with sinus tachycardia on the bedside monitor breathing 18 times a minute satting at 99% on room air upon arrival, afebrile at 97.7. Physical exam reveals a much older than stated age and chronically ill-appearing 59-year-old gentleman who otherwise is in no acute distress BMI is 21. Breath sounds clear and equal bilaterally to the bases this sounds abdomen soft nontender no rebound or guarding no rigidity. [place] Coma Score 15 and patient is awake alert and oriented person place circumstance.. Differential diagnosis includes dehydration versus sepsis versus protein calorie malnutrition etc. Initial workup will be conducted with hematologic labs blood culture lactic acid. Initial interventions include crystalloid bolus. Initial workup reviewed by me shows his white count is 10.9 hemoglobin hematocrit are 8.5 and 26.5 respectively with an absolute neutrophil count of 10, INR 0.97 sodium to 133 BUN is 28 creatinine is 1.2 glucose 113 alk phos 203 albumin is 3.4 and the remainder of his hematologic labs are nonactionable. Upon repeat evaluation patient's blood pressure has improved to 95/61 and his heart rates come down to 88. Patient remains asymptomatic and is ambulatory in the emergency department without symptom. Given this patient is appropriate for discharge with close follow-up with his PCP and strict return precautions. <Perry Gerber MD - Last Filed: 01/24/25 23:41> Vital Signs: 01/24/25 13:53 01/24/25 14:00 01/24/25 14:00 Temperature 97.7 F Temperature Source Oral Pulse Rate 105 H 95 H Pulse Rate [Apical] 94 H Respiratory Rate 18 10 L Blood Pressure 86/53 L 91/66 L Blood Pressure [Right Arm] 95/61 L Blood Pressure Mean [Right Arm] 72 Blood Pressure Source Blood Pressure Source [Right Arm] Automatic Cuff Blood Pressure Position Blood Pressure Position [Right Arm] Sitting 02 Sat by Pulse Oximetry 99 97 99 Oxygen Delivery Method Room Air Room Air 01/24/25 14:30 01/24/25 14:44 01/24/25 15:00 Temperature 97.8 F Temperature Source Oral Pulse Rate 97 H 88 84 Pulse Rate [Apical] Respiratory Rate 16 14 18 Blood Pressure 82/43 L 95/61 L 112/64 Blood Pressure [Right Arm] Blood Pressure Mean [Right Arm] Blood Pressure Source Automatic Cuff Blood Pressure Source [Right Arm] Blood Pressure Position Sitting Blood Pressure Position [Right Arm] 02 Sat by Pulse Oximetry 95 100 Oxygen Delivery Method Room Air Room Air Room Air Lab Data Lab Results 01/24/25 14:15: WBC 10.9 H, RBC 2.90 L, Hgb 8.5 L, Hct 26.5 L, MCV 91.4, MCH 29.3, MCHC 32.1, RDW 19.6 H, Plt Count 259, MPV 8.8, Neut % (Auto) 91.8 H, Lymph % (Auto) 3.7 L, [place] % (Auto) 1.4 L, Eos % (Auto) 0.5, Baso % (Auto) 0.4, Neut # (Auto) 10.0 H, Lymph # (Auto) 0.4 L, [place] # (Auto) 0.2, Eos # (Auto) 0.1, Baso # (Auto) 0.0, Total Counted 100, Neutrophils % (Manual) 89 H, Band Neutrophils % 4, Lymphocytes % (Manual) 6 L, Monocytes % (Manual) 1 L, Platelet Estimate Normal, Hypochromasia 1+, Poikilocytosis 1+, Anisocytosis 2+, PT 10.9, INR 0.97, Sodium 133 L, Potassium 4.2, Chloride 102, Carbon Dioxide 24, Anion Gap 11.2, B UN 28 H, Creatinine 1.20, Estimated Creat Clear 59, Estimated GFR 62, Est GFR ( Amer) 74, Glucose 113 H, Lactate 0.8, Calcium 9.5, Total Bilirubin 0.6, AST 25, ALT 44, Alkaline Phosphatase 203 H, NT-Pro-B Natriuret Pep 514 H, Total Protein 6.7, Albumin 3.4 L, Globulin 3.3 H, Albumin/Globulin Ratio 1.0 L, Procalcitonin 1.64 Orders (Tests/Meds): ED MEDICATIONS Discontinued Medications Generic Name Dose Route Start Last Admin Trade Name Freq PRN Reason Stop Dose Admin Sodium Chloride 1,000 mls @ 999 mls/hr 01/24/25 14:01 01/24/25 14:16 Sod Chlor 0.9% 1000ml Bag IV 01/24/25 15:01 999 mls/hr .Q1H1M ONE Administration ORDERS Category Date Time Status BNP [NT Pro Brain Natriuretic Pep.] Stat Lab 01/24/25 14:15 Completed CBC w/Auto Diff [Complete Blood Count Auto Diff] Stat Lab 01/24/25 14:15 Completed CMP [Comprehensive Metabolic Panel] Stat Lab 01/24/25 14:15 Completed INR [Prothrombin Time INR] Stat Lab 01/24/25 14:15 Completed Lactic Acid Stat Lab 01/24/25 14:15 Completed Procalcitonin Stat Lab 01/24/25 14:15 Completed Blood Culture Stat Micro 01/24/25 14:15 Received Medical Decision Narrative: In summary patient is a 59-year-old male who presents to the emergency department for evaluation of low blood pressure. Patient is arriving with a blood pressure of 86/53 with a heart rate of 105 with sinus tachycardia on the bedside monitor breathing 18 times a minute satting at 99% on room air upon arrival, afebrile at 97.7. Physical exam reveals a much older than stated age and chronically ill-appearing 59-year-old gentleman who otherwise is in no acute distress BMI is 21. Breath sounds clear and equal bilaterally to the bases this sounds abdomen soft nontender no rebound or guarding no rigidity. [place] Coma Score 15 and patient is awake alert and oriented person place circumstance.. Differential diagnosis includes dehydration versus sepsis versus protein calorie malnutrition etc. Initial workup will be conducted with hematologic labs blood culture lactic acid. Initial interventions include crystalloid bolus. Initial workup reviewed by me shows his white count is 10.9 hemoglobin hematocrit are 8.5 and 26.5 respectively with an absolute neutrophil count of 10, INR 0.97 sodium to 133 BUN is 28 creatinine is 1.2 glucose 113 alk phos 203 albumin is 3.4 and the remainder of his hematologic labs are nonactionable. Upon repeat evaluation patient's blood pressure has improved to 95/61 and his heart rates come down to 88. Patient remains asymptomatic and is ambulatory in the emergency department without symptom. Given this patient is appropriate for discharge with close follow-up with his PCP and strict return precautions. I was consulted by the DAENNA, and we discussed the complexity of the problems being addressed. I approve the treatment and management plan for this patient's care in the emergency department, thus performing a substantive portion of the medical decision making. Perry Gerber MD Critical Care <KIMMY Snell - Last Filed: 01/24/25 15:04> Critical Care Time Critical Care Time: No
[2025-01-24 14:00] VITALS: BP 91/66; BP 95/61; PULSE 94; PULSE 95; RESP 10; RESP 18; TEMP 36.5; O2SAT 97; O2SAT 99; BMI 20.9
[2025-01-24] MEDS: 0.9 % SODIUM CHLORIDE 1000ML 1,000 ML 999 ML IV (14:16)
[2025-01-24 14:25] LABS: Basophils % 0.4 % (0.1-2.0); Eosinophils # 0.1 Kmm3 (0.0-0.4); Eosinophils % 0.5 % (0.1-12.0); Hematocrit 26.5 % (42.0-52.0); Hemoglobin 8.5 g/dL (14.1-18.0); Immature Granulocytes # 0.24 10^3uL; Immature Granulocytes % 2.2 %; Lymphocytes # 0.4 K/mm3 (0.7-4.5); Lymphocytes % 3.7 % (10-50); Mean Corpuscular HGB Conc 32.1 g/dL (31.8-35.4); Mean Corpuscular Hemoglobin 29.3 pg (27.0-31.2); Mean Corpuscular Volume 91.4 fl (80-94); Mean Platelet Volume 8.8 fl (7.4-10.4); Monocytes # 0.2 K/mm3 (0.1-1.0); Monocytes % 1.4 % (1.7-9.3); Neutrophils % 91.8 % (37.0-80.0); Nucleated Red Blood Cells # 0 10^3/uL; Nucleated Red Blood Cells % 0 %; Platelet Count 259 K/mm3 (142-424); Red Cell Distribution Width 19.6 % (11.5-17.5); Red Cell Distribution Width-SD 65.7 fL; White Blood Count 10.9 K/mm3 (4.8-10.8)
[2025-01-24 14:29] LABS: Albumin Level 3.4 g/dl (3.5-5.0); Chloride 102 mmol/L (98-107); Potassium 4.2 mmoL/L (3.5-5.1); Sodium 133 mmol/L (136-145)
[2025-01-24 14:30] VITALS: BP 82/43; PULSE 97; RESP 16; O2SAT 95
[2025-01-24 14:31] LABS: INR 0.97 (0.9-1.1); Prothrombin Time 10.9 seconds (10.1-12.5)
[2025-01-24 14:32] LABS: Alanine Aminotransferase 44 U/L (12-78); Alkaline Phosphatase 203 U/L (38-126); Anion Gap 11.2 mEq/L (5-15); Aspartate Amino Transferase 25 U/L (17-59); Bilirubin,Total 0.6 mg/dl (0.2-1.3); Blood Urea Nitrogen 28 mg/dl (9-20); Calcium 9.5 mg/dl (8.4-10.2); Carbon Dioxide 24 mmol/L (22.0-30.0); Creatinine Clearance Estimated 59 mL/min (50-200); Estimated Glomerular Filt Rate 62 ml/min (>60); GFR (African American) 74 ML/MIN (>60); Globulin 3.3 g/dL (1.3-3.2); Glucose 113 mg/dl (74-100); Total Protein,Serum 6.7 g/dl (6.3-8.2)
[2025-01-24 14:33] LABS: Lactic Acid 0.8 mmol/L (0.7-2.1)
[2025-01-24 14:38] LABS: MANUAL DIFFERENTIAL MANUAL DIFFERENTIAL (MANUAL DIFF)
[2025-01-24 14:44] VITALS: BP 95/61; PULSE 88; RESP 14; O2SAT 100
[2025-01-24 15:00] VITALS: BP 112/64; PULSE 84; RESP 18; TEMP 36.6; O2SAT 97
[2025-01-24 15:35] LABS: Band Neutrophils % 4 (0-8); Lymphocytes % 6 % (10-50); Monocytes % 1 % (2-9); Neutrophils % 89 % (42-76); Total Cells Counted 100
[2025-01-24 15:36] LABS: Anisocytosis 2+; Hypochromasia 1+; Platelet Estimate Normal; Poikilocytosis 1+
[2025-01-24 15:43] LABS: NT Pro Brain Natriuretic Pep. 514 pg/mL (0-125)
[2025-01-24 16:09] LABS: Procalcitonin 1.64 ng/mL (0.0-2.0)
== END 2025-01-24 15:08 | disposition home or self-care (01) ==
PROVIDERS: Physician Assistant; Emergency Provider Student in an Organized Health Care Education/Training Program; PCP Nurse Practitioner Family
DX: I95.9 Hypotension, unspecified (principal); R00.0 Tachycardia, unspecified; Z92.21 Personal history of antineoplastic chemotherapy; Z85.118 Personal history of other malignant neoplasm of bronchus and lung; Z85.528 Personal history of other malignant neoplasm of kidney; Z87.891 Personal history of nicotine dependence
CPT/HCPCS: 80053; 83605; 83880; 84145; 85007; 85025; 85027; 85610; 87040; 96360; 99284; J7030

== ENCOUNTER 2025-01-25 15:49 | Outpatient (CLI) | payer MEDICAID, SELFPAY ==
--- NOTE | 2025-01-25 15:53 | XR_ITS ---
FINAL REPORT CLINICAL HISTORY: L elbow pain COMPARISON: None FINDINGS: LEFT ELBOW 3 views were obtained. There is no acute fracture or dislocation. There is no joint effusion. There is mild narrowing of the medial and lateral compartment joint spaces. Small osteophyte is noted of the medial joint margin. There is a 6 mm loose body in the anterior elbow joint space. There is no soft tissue abnormality. IMPRESSION: Mild degenerative changes, small osteophyte, and 6 mm loose body. No acute bony abnormality. Reviewed, Interpreted and Dictated by Scottie Claros MD Transcribed by Ludy Colón Authenticated and [facility]
== END 2025-01-25 23:59 | disposition home or self-care (01) ==
LOC: RAD 15:50
PROVIDERS: PCP Nurse Practitioner Family; Visit Provider Nurse Practitioner Family
DX: M19.022 Primary osteoarthritis, left elbow; M25.722 Osteophyte, left elbow; M24.022 Loose body in left elbow
CPT/HCPCS: 73080

== ENCOUNTER 2025-02-15 07:02 | Emergency (ER) | payer MEDICAID, SELFPAY ==
[2025-02-15] VITALS (14 sets, daily range): BP systolic 93–134; BP diastolic 64–84; PULSE 68–126; RESP 13–22; TEMP 37.1–37.2; O2SAT 78–100; BMI 19.5
--- NOTE | 2025-02-15 07:09 | ECG_ITS ---
APPROVED REPORT Exam: Resting ECG HR:121 bpm ECG Measurements Heart Rate 121 AXES QRSd 110 QRS 99 QT 308 T 50 QTc 380 Conclusion ATRIAL FLUTTER/TACHYCARDIA WITH RAPID VENTRICULAR RESPONSE BORDERLINE RIGHT AXIS DEVIATION [QRS AXIS > 90] NONSPECIFIC ST & T-WAVE ABNORMALITY No STEMI Electronically signed by : DREA BAKER, 02/16/2025 02:21:40
--- NOTE | 2025-02-15 07:18 | CT_ITS ---
FINAL REPORT TECHNIQUE: Axial imaging of the chest is obtained after the administration of contrast. 3-D MIP reformatted images were also obtained and reviewed per PE protocol. CLINICAL HISTORY: Shortness of breath, abd pain (RUQ), lung cancer on chemo COMPARISON: 09/07/2024 FINDINGS: The pulmonary arteries are well filled. There is no evidence of pulmonary embolus. There is no aortic dissection. Heart size is normal. No axillary lymphadenopathy. Interval increase in size of abnormal soft tissue in the AP window where previously there were 3 separate lymph nodes is now confluent abnormal soft tissue measuring 6.4 x 2.7 cm. Left hilar lymphadenopathy has improved. Right hilar lymph node measures 17 mm and previously measured 25 mm. New soft tissue nodule adjacent to the descending aorta measuring 12 mm. Nodule in the lingula measures 11 mm, was 12 mm and is unchanged. Previously seen irregular density in the anterior left upper lobe is cavitary on today's exam measuring 4 x 2.7 cm. New perihilar nodule in the left upper lobe on image 36 of series 5 measures 18 mm. Left apical nodule on image 18 of series 5 appears stable. No new nodule or mass in the right lung.. There is no pleural or pericardial effusion. No acute osseous abnormality. IMPRESSION: No evidence of pulmonary embolism or aortic dissection. Progression of lymphadenopathy in the AP window now with confluent abnormal soft tissue but improved bilateral hilar adenopathy. New cavitation within the previously seen left upper lobe irregular nodule with new left perihilar nodule concerning for residual or recurrent disease. Consider PET/CT. Reviewed, Interpreted and Dictated by Juju Moss MD Transcribed by Ludy Colón Authenticated and [facility]
--- NOTE | 2025-02-15 07:18 | CT_ITS ---
FINAL REPORT TECHNIQUE: Thin section axial images are obtained through the abdomen and pelvis after intravenous contrast. Reconstruction images were obtained from the axial data. Exam was performed using dose reduction techniques. CLINICAL HISTORY: Shortness of breath, abd pain (RUQ), lung cancer on chemo COMPARISON: 01/11/2025 FINDINGS: LIVER: Hypodense lesion in the dome of the right lobe of the liver measures 17 mm, was 12 mm, concerning for metastasis. New hypodense lesion in the caudate measures 16 mm. GALLBLADDER/BILIARY SYSTEM: Gallbladder is present. No gallstones. No biliary dilatation. SPLEEN: Unremarkable. PANCREAS: Unremarkable. ADRENALS: Right adrenal mass has increased in size now measuring 4.4 cm and previously measured 2.4 cm. 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 There has been interval increase in size of the hypodense lesion in the upper pole of the left kidney now measuring 5.4 cm. Unremarkable urinary bladder. GI TRACT: Large amount of retained stool. No small bowel obstruction or dilatation. Normal appendix. No acute colon abnormality. PELVIC ORGANS: Unremarkable for age. LYMPH NODES/RETROPERITONEUM/MESENTERY: No lymphadenopathy. No abdominal aortic aneurysm. ABDOMINAL WALL: The abdominal wall is intact. FREE FLUID: No ascites. BONES: Lytic lesion right iliac crest has increased in size now measuring 2.8 cm and was 1.7 cm. Left iliac wing lesion also increased in size since previous exam, as well as a lesion in the right aspect of T12. IMPRESSION: Progression of hepatic metastases with interval increase in size of previous lesions as well as new lesions. Progression of right adrenal metastasis. Interval increase in size of left renal lesion, could be metastasis. Progression of lytic bony metastases. Reviewed, Interpreted and Dictated by Juju Moss MD Transcribed by Ludy Colón Authenticated and [facility]
--- NOTE | 2025-02-15 07:20 | HMH.EDGENADL ---
Discharge Plan Disposition Patient Disposition: Home, Self-Care Condition: Good Prescriptions Prescriptions: New sennosides [Senna Lax] 8.6 mg tablet 8.6 mg PO DAILY PRN (Reason: constipation) Qty: 30 0RF polyethylene glycol 3350 [Miralax] 17 gram/dose powder 17 g PO DAILY PRN (Reason: constipation) Qty: 510 0RF No Action buprenorphine-naloxone 8-2 mg tablet, sublingual 2 tab SL DAILY Vraylar 1.5 mg capsule 1.5 mg PO DAILY Qty: 90 2RF ipratropium-albuterol 0.5 mg-3 mg(2.5 mg base)/3 mL solution for nebulization 3 ml inhalation QID PRN (Reason: shortness of breath or wheezing) 90 Days Qty: 270 3RF Breztri Aerosphere 160-9-4.8 mcg/actuation HFA aerosol inhaler 2 inh inhalation BID 90 Days Qty: 10.7 3RF nicotine (polacrilex) 2 mg gum 2 mg buccal Q2H PRN (Reason: nicotine cravings) Qty: 396 0RF Rx Instructions: Weeks 1 to 6: Chew 1 piece every 2 hours As NEEDED Weeks 7 to 9: Chew 1 piece every 4 hors As NEEDED Weeks 1o to 12: Chew 1 piece every 8 hours As NEEDED olanzapine 5 mg tablet 5 mg PO gabapentin 800 mg tablet 800 mg PO TID Qty: 90 3RF polyethylene glycol 3350 [Miralax] 17 gram/dose powder 17 g PO DAILY PRN (Reason: constipation) 4 Days Qty: 68 0RF docusate sodium [Colace] 100 mg capsule 100 mg PO DAILY Qty: 30 0RF tamsulosin [Flomax] 0.4 mg capsule 0.4 mg PO DAILY Qty: 14 0RF celecoxib [Celebrex] 100 mg capsule 100 mg PO DAILY Qty: 60 2RF cyclobenzaprine 10 mg tablet 10 mg PO BID Patient Comments: TAKE ONE TABLET BY MOUTH 2 TIMES A DAY NEEDED FOR MUSCLE SPASMS omeprazole 40 mg capsule,delayed release(DR/EC) 40 mg PO DAILY Qty: 90 3RF prednisone 20 mg tablet 20 mg PO BID 5 Days Qty: 10 0RF albuterol sulfate 90 mcg/actuation HFA aerosol inhaler 2 inh inhalation QID PRN (Reason: shortness of breath or wheezing) 90 Days Qty: 8.5 2RF Referrals Follow up/Referrals: Constantine Stiles APRN [Primary Care Provider, Family Practice] - See instructions Activity Restrictions/Add. Instructions Additional Instructions/Restrictions: You were evaluated in the emergency department today. At this time, your CT scans show severe constipation, for which we have given you lactulose here in the emergency department. I am also prescribing you MiraLAX and senna for an outpatient cleanout. I called and spoke with your oncology team at who recommended that they are going to arrange sooner follow-up ideally this week in clinic for you. They should contact you with an appointment. Please return to the emergency department right away for new or worsening symptoms, such as fever greater than 100.4 ?F, significant worsening of pain, or worsening shortness of breath. I also recommend following up with your primary care provider and notifying them that you were seen here today as well. They can help monitor and follow-up your hemoglobin to make sure that you do not need blood transfusion with your chronic anemia that has likely been worsened by chemotherapy. Clinical Impressions Clinical Impression: Abdominal pain, Metastatic disease, Hematuria, NSCLC of left lung, Tachycardia, Shortness of breath, Acute on chronic anemia, Constipation Instructions Patient Instructions: DI for Constipation Print Language Print Language: Swazi Discharge ED Provider: Gaye Jefferson General Adult HPI General Chief complaint: Shortness of Breath/Dyspnea Stated complaint: soa abd pain x3days Time Seen by Provider: 02/15/25 07:09 History of Present Illness HPI narrative: This patient is a 59-year-old male with a history of COPD on 2 L nasal cannula, non-small cell lung cancer on active chemotherapy at (last tx 02/09/25), left renal mass, prior tobacco use, history of chronic constipation, and history of kidney stone presenting to the emergency department for evaluation with concern for difficulty breathing and abdominal pain. He states that he has a really bad stomachache in the middle/right upper part of his abdomen. He notes this been going on for about 3 days. He also notes that the shortness of breath has been going on about the same time period. No fevers, increasing cough, nausea, vomiting, dysuria noted. He does note that he has had constipation with last bowel movement being sometime at the end of last week. He denies any prior surgical abdominal history. Related Data Home Medications ?Medication ?Instructions ?Recorded ?Confirmed buprenorphine 8 mg-naloxone 2 mg 2 tab sublingual DAILY . 04/08/22 02/11/25 sublingual tablet olanzapine 5 mg tablet 5 mg PO 01/12/25 02/11/25 cyclobenzaprine 10 mg tablet 10 mg PO BID 01/24/25 02/11/25 Previous Rx's ?Medication ?Instructions ?Recorded ipratropium 0.5 mg-albuterol 3 mg 3 ml inhalation QID PRN shortness 01/30/24 (2.5 mg base)/3 mL nebulization of breath or wheezing 90 days #270 soln mL cariprazine 1.5 mg capsule 1.5 mg PO DAILY #90 caps 04/20/24 (Vraylar) budesonide 160 mcg-glycopyr 9 2 inh inhalation BID 90 days #10.7 07/01/24 mcg-formot 4.8 mcg/actuation HFA grams inhaler (Breztri Aerosphere) nicotine (polacrilex) 2 mg gum 2 mg buccal Q2H PRN nicotine 07/01/24 cravings #396 ea omeprazole 40 mg capsule,delayed 40 mg PO DAILY #90 caps 08/04/24 release docusate sodium 100 mg capsule 100 mg PO DAILY #30 caps 01/06/25 (Colace) polyethylene glycol 3350 17 17 g PO DAILY PRN constipation 4 01/06/25 gram/dose oral powder (Miralax) days #68 grams tamsulosin 0.4 mg capsule (Flomax) 0.4 mg PO DAILY #14 caps 01/06/25 gabapentin 800 mg tablet 800 mg PO TID #90 tabs 01/12/25 albuterol sulfate 90 mcg/actuation 2 inh inhalation QID PRN shortness 01/25/25 aerosol inhaler of breath or wheezing 90 days #8.5 grams prednisone 20 mg tablet 20 mg PO BID 5 days #10 tabs 01/25/25 celecoxib 100 mg capsule (Celebrex) 100 mg PO DAILY #60 caps 02/11/25 polyethylene glycol 3350 17 17 g PO DAILY PRN constipation 02/15/25 gram/dose oral powder (Miralax) #510 grams sennosides 8.6 mg tablet (Senna 8.6 mg PO DAILY PRN constipation 02/15/25 Lax) #30 tabs Allergies Allergy/AdvReac Type Severity Reaction Status Date / Time No Known Allergies Allergy Verified 02/11/25 10:22 [facility] Disclaimer: The information contained in this section may have been updated after the patient was seen, as this information can be updated by other users. Medical History Lung cancer Multiple lung nodules on CT Solid nodule of lung greater than 8 mm in diameter Dyspnea on exertion Encounter for screening for malignant neoplasm of lung Smoking greater than 30 pack years COPD mixed type DDD (degenerative disc disease), lumbar Surgical History (Reviewed 02/15/25 @ 07: by Gaye Jefferson DO) History of lung biopsy History of back surgery No history of previous surgery Family History (Reviewed 02/15/25 @ 07: by Gaye Jefferson DO) Other No significant family history Social History (Reviewed 02/15/25 @ 07: by Gaye Jefferson DO) Smoking Status: Former smoker tobacco type: cigarettes packs per day: 2 smoking status stop date: November 2023 alcohol intake: never substance use type: former substance user current occupational status: employed Travel in the last 8 weeks?: None Have you lived/traveled outside [place] in past 30 days?: No Contact w/someone who lives/traveled outside US past 30 days?: No Exposure to someone with infectious disease in past 14 days?: No Do you have a fever (greater than 100.4 F or 38 C)?: No Have you tested positive for COVID-19?: No Exposed to someone with COVID-19 in past 14 days?: No Do you have a sore throat?: No Do you have a cough?: No Do you have any weakness?: No Do you have any diarrhea?: No Are you experiencing any unusual bleeding?: No Do you have any muscle aches/pain?: No Do you have any abdominal pain?: Yes Are you experiencing loss of taste or smell?: No Other Medical History Have you received the Flu Vaccine for this season: No Have you received the Pneumonia Vaccine: No ROS Obtained: Yes All systems reviewed & no additional complaints except as documented Physical Exam General General appearance: alert and in no apparent distress Head Head exam: atraumatic and normocephalic Eye Eye exam: Present normal appearance, PERRL and EOMI ENT ENT exam: Present normal exam, normal oropharynx, mucous membranes moist and normal external ear exam Neck Neck exam: Present normal inspection, full ROM and trachea midline; Absent tenderness Chest Chest inspection: Present normal inspection and symmetric chest wall rise; Absent tenderness Respiratory Respiratory exam: Present wheezes, prolonged expiratory phase and other (diminished breath sounds bilaterally); Absent respiratory distress or stridor Cardiovascular Cardiovascular exam: Present normal rhythm and tachycardia Abdominal Exam Abdominal exam: Present soft and tenderness (epigastric/RUQ); Absent distention or guarding Extremities Exam Extremities exam: Present normal inspection, full ROM and normal capillary refill; Absent tenderness or edema Back Exam Back exam: Present normal inspection and full ROM; Absent tenderness Neurological Exam Neurological exam: Present alert, oriented X3, CN II-XII intact and normal gait; Absent motor sensory deficit Psychiatric Psychiatric exam: Present normal affect and normal mood Skin Skin exam: Present warm and dry Medical Decision Making Medical Records Medical records reviewed: Yes I reviewed the patient's medical records. Screening: Per USPSTF and CDC recommendations, given the prevalence of disease in our region, it is our hospital?s policy to screen for HIV and viral Hepatitis for all patients aged 18 and over and those with ongoing risk factors. Handy Inquiry Pt receiving controlled substance: No Vital Signs: 02/15/25 07:08 02/15/25 07:14 02/15/25 07:30 Temperature 98.8 F Temperature Source Oral Pulse Rate 68 126 H Pulse Rate [Right Radial] 121 H Respiratory Rate 22 Blood Pressure 104/70 L 114/70 Blood Pressure [Right Arm] 104/70 L Blood Pressure Mean Blood Pressure Mean [Right Arm] 81 Blood Pressure Source Blood Pressure Source [Right Arm] Automatic Cuff Blood Pressure Position [Right Arm] Sitting 02 Sat by Pulse Oximetry 96 78 L 98 Oxygen Delivery Method Nasal Cannula Room Air Nasal Cannula Oxygen Flow Rate (LPM) 2 2 02/15/25 07:41 02/15/25 07:52 02/15/25 08:00 Temperature Temperature Source Pulse Rate 117 H 116 H 117 H Pulse Rate [Right Radial] Respiratory Rate 22 18 Blood Pressure 114/70 114/73 Blood Pressure [Right Arm] Blood Pressure Mean Blood Pressure Mean [Right Arm] Blood Pressure Source Automatic Cuff Blood Pressure Source [Right Arm] Blood Pressure Position [Right Arm] 02 Sat by Pulse Oximetry 98 100 Oxygen Delivery Method Nasal Cannula Nasal Cannula Oxygen Flow Rate (LPM) 2 2 02/15/25 08:11 02/15/25 08:15 02/15/25 08:30 Temperature Temperature Source Pulse Rate 118 H 120 H 120 H Pulse Rate [Right Radial] Respiratory Rate 13 20 Blood Pressure 103/70 L Blood Pressure [Right Arm] Blood Pressure Mean 79 Blood Pressure Mean [Right Arm] Blood Pressure Source Blood Pressure Source [Right Arm] Blood Pressure Position [Right Arm] 02 Sat by Pulse Oximetry 100 98 Oxygen Delivery Method Nasal Cannula Oxygen Flow Rate (LPM) 2 2 02/15/25 09:30 02/15/25 10:00 02/15/25 10:46 Temperature Temperature Source Pulse Rate 112 H 119 H 115 H Pulse Rate [Right Radial] Respiratory Rate 20 20 Blood Pressure 106/67 L 93/64 L 94/67 L Blood Pressure [Right Arm] Blood Pressure Mean 76 71 70 Blood Pressure Mean [Right Arm] Blood Pressure Source Blood Pressure Source [Right Arm] Blood Pressure Position [Right Arm] 02 Sat by Pulse Oximetry 100 98 98 Oxygen Delivery Method Nasal Cannula Nasal Cannula Oxygen Flow Rate (LPM) 2 2 Lab Data Lab results reviewed: Yes I reviewed the patient's lab results. Lab Results 02/15/25 07:08: WBC 4.0 L, RBC 2.45 L, Hgb 7.3 L, Hct 23.2 L, MCV 94.7 H, MCH 29.8, MCHC 31.5 L, RDW 17.5, Plt Count 148, MPV 10.3, Neut % (Auto) 82.7 H, Lymph % (Auto) 4.7 L, Burnett % (Auto) 2.7, Eos % (Auto) 0.0 L, Baso % (Auto) 0.5, Neut # (Auto) 3.3, Lymph # (Auto) 0.2 L, Burnett # (Auto) 0.1, Eos # (Auto) 0.0, Baso # (Auto) 0.0, Total Counted 100, Neutrophils % (Manual) 93 H, Lymphocytes % (Manual) 7 L, Platelet Estimate Slight decrease, RBC Morphology Normal, PT 11.4, INR 1.03, APTT 26.2, Sodium 134 L, Potassium 4.0, Chloride 104, Carbon Dioxide 21 L, Anion Gap 13.0, BUN 16, Creatinine 0.60 L, Estimated Creat Clear 66, Estimated GFR 137, Est GFR ( Amer) 166, Glucose 191 H, Calcium 9.3, Total Bilirubin 0.7, AST 22, ALT 31, Alkaline Phosphatase 170 H, Troponin I < 0.01, Total Protein 6.8, Albumin 3.3 L, Globulin 3.5 H, Albumin/Globulin Ratio 0.9 L, Lipase < 10 L, TSH 1.63, Thyroxine (T4) 9.4 02/15/25 07:18: VBG pH 7.44 H, VBG pCO2 32.7 L, VBG pO2 34.3, VBG HCO3 21.7 L, VBG Total CO2 22.7 L, VBG O2 Saturation 66.6, VBG Base Excess -2.5 L, VBG Lactic Acid 2.2 H 02/15/25 09:42: Urine Color Yellow, Urine Appearance Clear, Urine pH 6.5, Ur Specific [place] 1.010, Urine Protein 1+ A, Urine Glucose (UA) Negative, Urine Ketones Negative, Urine Blood 1+ A, Urine Nitrate Negative, Urine Bilirubin Negative, Urine Urobilinogen 0.2, Ur Leukocyte Esterase Negative, Urine RBC 10-20, Urine WBC Occasional, Ur Squamous Epith Cells None, Urine Bacteria None 02/15/25 07:08 02/15/25 07:08 Orders (Tests/Meds): ED MEDICATIONS Generic Name Dose Route Start Last Admin Trade Name Freq PRN Reason Stop Dose Admin Sodium Chloride 10 ml 02/15/25 09:13 Sodium Chloride 0.9% 10ml Syr (Rad Only) IV 03/17/25 09:12 NEEDED PRN Maintain IV Site Discontinued Medications Generic Name Dose Route Start Last Admin Trade Name Freq PRN Reason Stop Dose Admin Albuterol/Ipratropium 9 ml 02/15/25 07:18 02/15/25 07:47 Ipratropium/Albuterol 3 Ml Neb IH 02/15/25 07:19 9 ml ONCE ONE Administration Lactated Ringer's 1,000 mls @ 999 mls/hr 02/15/25 07:18 02/15/25 07:36 Lactated Ringer's 1000 Ml Bag IV 02/15/25 08:18 999 mls/hr .Q1H1M ONE Administration Iopamidol 70 ml 02/15/25 09:13 02/15/25 09:14 Iopamidol-370 (76%);100ml Bottle IV 02/15/25 09:14 70 ml ONCE ONE Administration Lactulose 20 gm 02/15/25 10:51 Lactulose 20gm/30ml Udc PO 02/15/25 10:52 ONCE ONE Morphine Sulfate 4 mg 02/15/25 07:18 02/15/25 07:36 Morphine 4mg/Ml Syringe IV 02/15/25 07:19 4 mg ONCE ONE Administration Ondansetron HCl 4 mg 02/15/25 07:18 02/15/25 07:36 Ondansetron 4mg/2ml Vial IV 02/15/25 07:19 4 mg ONCE ONE Administration Sodium Chloride 50 ml 02/15/25 09:13 02/15/25 09:14 0.9 % Sodium Chloride 50 Ml Vial IV 02/15/25 09:14 50 ml ONCE ONE Administration ORDERS Category Date Time Status CT abdomen pelvis w con Stat Cat Scan 02/15/25 07:18 Completed CTA Chest [CT angio chest PE protocol] Stat Cat Scan 02/15/25 07:18 Completed Complete Blood Count Auto Diff Stat Lab 02/15/25 07:08 Completed Comprehensive Metabolic Panel Stat Lab 02/15/25 07:08 Completed Lipase Stat Lab 02/15/25 07:08 Completed PT INR [Prothrombin Time INR] Stat Lab 02/15/25 07:08 Completed PTT [Activated Partial Thrombo Time] Stat Lab 02/15/25 07:08 Completed T4 (Thyroxine) Stat Lab 02/15/25 07:08 Completed TSH [Thyroid Stimulating Hormone] Stat Lab 02/15/25 07:08 Completed Trop I [Troponin I] Stat Lab 02/15/25 07:08 Completed Troponin I Q3H Lab 02/15/25 10:25 Received Troponin I Q3H Lab 02/15/25 13:30 Ordered UA [Urinalysis and Microscopic] Stat Lab 02/15/25 09:42 Completed Blood Culture Stat Micro 02/15/25 07:28 Received VBG [Venous Blood Gas] Stat RT 02/15/25 07:18 Completed ECG Data Tracing #1: I reviewed this ECG and interpreted as documented below: Sinus tachycardia with a ventricular rate of [address] changes concerning for ischemia. Normal intervals ECG initial impression date: 02/15/25 ECG initial impression time: 07:11 Medical Decision Narrative: In summary, this patient is a 59-year-old male presenting to the Emergency Department for evaluation of shortness of breath and abdominal pain. Differential diagnoses considered include but are not limited to cholecystitis, pancreatitis, ACS, dysrhythmia, PE, pneumonia, colitis, pyelonephritis, DRISS, sepsis. Ruling out the most morbid conditions drove assessment. It should be noted patient's history includes lung cancer on active chemotherapy, COPD on 2 L nasal cannula which likely are not at goal therapy. This complicates all aspects of care by increasing patient's risk for morbidity. I reviewed patient's past medical records and noted evaluation at and active chemotherapy as detailed in HPI, last treatment 02/09/2025. On exam, the patient is lying in bed in no acute distress. He does have wheezes and slightly diminished breath sounds, but he is not in any respiratory distress. He also has epigastric and right upper quadrant tenderness with no rebound or guarding. Workup included CBC, CMP, lipase, PT, PTT, VBG, lactic acid, troponin, TSH, T4, blood cultures, EKG, CTA PE protocol, CT abdomen pelvis with IV contrast. Patient was given a bolus of IV fluids as well as IV morphine and Zofran.. He was also given DuoNebs x 3 to assess for symptomatic improvement. I independently interpreted CT scans prior to the radiologist read and noted severe constipation with gaseous distention of his intestines, but no evidence of perforation. Please see their read for final interpretation. They also noted concern for worsening metastatic disease. Labs were obtained that demonstrated acute on chronic anemia that slowly been progressively worsening with a hemoglobin of 7.3. No indication for transfusion at this time. VBG demonstrates mildly elevated lactic acid, mild respiratory alkalosis. Chemistry demonstrates mild hyponatremia which appears to be chronic. Troponin is negative. Chemistry is otherwise reassuring. Urinalysis demonstrates 10-20 red blood cells but is not concerning for infection. On reassessment, patient sitting upright in no acute distress. He is persistently mildly tachycardic, though improved after fluids (120s to 100s). His blood pressures have been soft the entire time that has been here, but they appear to be the same as his vital signs on outpatient visits at with hematology/oncology on my review of medical records. Given patient is on active chemo with hematology/oncology , I did call and discussed the case with them. They are agreeable with me administering lactulose here and discharging the patient for close outpatient follow-up in their clinic and with his primary care provider. They noted that they would help arrange that this week. He was given lactulose here, which he tolerated well. He was deemed to be appropriate for discharge home given that his workup shows nothing acutely emergent that would require admission to the hospital at this time. He was discharged with very strict return precautions as well as with prescriptions for MiraLAX and senna. Critical Care Critical Care Time Critical Care Time: Yes Attestation: On 02/15/25, the high probability of a clinically significant, sudden or life threatening deterioration of the following system(s) required my full and direct attention, intervention and personal management. The time I documented below is in addition to time spent performing reported procedures but includes the following listed in this critical care notation. Total Time Total Critical Care Time: 35
--- NOTE | 2025-02-15 07:22 | PC.NURSE ---
Respiratory notified of VBG needed
[2025-02-15 07:25] LABS: Basophils % 0.5 % (0.1-2.0); Hematocrit 23.2 % (42.0-52.0); Hemoglobin 7.3 g/dL (14.1-18.0); Immature Granulocytes # 0.38 10^3uL; Immature Granulocytes % 9.4 %; Lymphocytes # 0.2 K/mm3 (0.7-4.5); Lymphocytes % 4.7 % (10-50); Mean Corpuscular HGB Conc 31.5 g/dL (31.8-35.4); Mean Corpuscular Hemoglobin 29.8 pg (27.0-31.2); Mean Corpuscular Volume 94.7 fl (80-94); Mean Platelet Volume 10.3 fl (7.4-10.4); Monocytes # 0.1 K/mm3 (0.1-1.0); Monocytes % 2.7 % (1.7-9.3); Neutrophils # 3.3 K/mm3 (1.8-7.8); Neutrophils % 82.7 % (37.0-80.0); Nucleated Red Blood Cells # 0 10^3/uL; Nucleated Red Blood Cells % 0 %; Platelet Count 148 K/mm3 (142-424); Red Blood Count 2.45 M/mm3 (4.60-6.20); Red Cell Distribution Width 17.5 % (11.5-17.5); Red Cell Distribution Width-SD 61.2 fL
[2025-02-15 07:26] LABS: VBG Base Excess -2.5 mmol/L (-2.4-2.3); VBG HCO3 21.7 mmol/L (23-30); VBG Oxygen Saturation 66.6 % (50-70); VBG PCO2 32.7 mmol/L (35-51); VBG PH 7.44 mmol/L (7.31-7.41); VBG PO2 34.3 mmol/L (28-40); VBG Total CO2 22.7 mmol/L (23-27)
[2025-02-15 07:27] LABS: Lactate Venous 2.2 mmol/L (0.4-2.0)
[2025-02-15] MEDS: ONDANSETRON 4MG/2ML VIAL 4 MG IV (07:36)
[2025-02-15] MEDS: MORPHINE 4MG/ML SYRINGE 4 MG IV (07:36)
[2025-02-15] MEDS: LACTATED RINGERS 1000ML 1,000 ML 999 ML IV (07:36)
[2025-02-15 07:39] LABS: Albumin Level 3.3 g/dl (3.5-5.0); Chloride 104 mmol/L (98-107); Sodium 134 mmol/L (136-145)
[2025-02-15 07:41] LABS: Blood Urea Nitrogen 16 mg/dl (9-20); MANUAL DIFFERENTIAL MANUAL DIFFERENTIAL (MANUAL DIFF)
[2025-02-15 07:42] LABS: Alanine Aminotransferase 31 U/L (12-78); Albumin/Globulin Ratio 0.9 (1.1-1.8); Alkaline Phosphatase 170 U/L (38-126); Aspartate Amino Transferase 22 U/L (17-59); Bilirubin,Total 0.7 mg/dl (0.2-1.3); Calcium 9.3 mg/dl (8.4-10.2); Carbon Dioxide 21 mmol/L (22.0-30.0); Creatinine Clearance Estimated 66 mL/min (50-200); Estimated Glomerular Filt Rate 137 ml/min (>60); GFR (African American) 166 ML/MIN (>60); Globulin 3.5 g/dL (1.3-3.2); Glucose 191 mg/dl (74-100); Total Protein,Serum 6.8 g/dl (6.3-8.2)
[2025-02-15 07:44] LABS: Activated Partial Thrombo Time 26.2 seconds (22.8-30.6); INR 1.03 (0.9-1.1); Lipase < 10 U/L (23-300); Prothrombin Time 11.4 seconds (10.1-12.5)
[2025-02-15] MEDS: IPRATROPIUM/ALBUTEROL 3 ML NEB 9 ML IH (07:47)
[2025-02-15 07:56] LABS: Lymphocytes % 7 % (10-50); Neutrophils % 93 % (42-76); Total Cells Counted 100; Troponin I < 0.01 ng/ml (0.00-0.034)
[2025-02-15 07:57] LABS: Platelet Estimate Slight Decrease; RBC Morphology Normal
[2025-02-15 08:00] LABS: T4 (Thyroxine) 9.4 ug/dl (5.53-11.0)
--- NOTE | 2025-02-15 08:05 | HMH.ITSTN ---
per resp. bt has multiple breathing treatments for the next 30 min
[2025-02-15 08:13] LABS: Thyroid Stimulating Hormone 1.63 uIU/mL (0.465-4.68)
--- NOTE | 2025-02-15 08:33 | PC.NURSE ---
Dr. Jefferson speaking with Prince Hernández NP.
[2025-02-15] MEDS: 0.9 % SODIUM CHLORIDE 50 ML VIAL IV (09:14)
[2025-02-15] MEDS: IOPAMIDOL-370 (76%);100ML BOTTLE 70 ML IV (09:14)
[2025-02-15 09:47] LABS: Microscopic, Urine URINE MICROSCOPIC (MICROSCOPIC)
[2025-02-15 09:53] LABS: Appearance,Urine CLEAR (Clear); Bilirubin,Urine Negative (Negative); Blood, Urine 1+ (Negative); Color,Urine YELLOW (Yellow); Glucose,Urine (UA) Negative (Negative); Ketones,Urine Negative (Negative); Leukocyte Esterase,Urine Negative (Negative); Nitrate,Urine Negative (Negative); PH,Urine 6.5 (5.0-8.5); Protein,Urine 1+ (Negative); Urobilinogen,Urine 0.2 EU/dl (0.2)
[2025-02-15 10:08] LABS: WBC,Urine Occasional #/hpf (0-3)
--- NOTE | 2025-02-15 10:26 | PC.NURSE ---
Repeat trop sent to lab
--- NOTE | 2025-02-15 10:34 | PC.NURSE ---
power share images to [employer].
--- NOTE | 2025-02-15 10:42 | PC.NURSE ---
Called [facility] per Dr. Jefferson for a consult with Heme/ Oncology
--- NOTE | 2025-02-15 10:43 | PC.NURSE ---
Called [facility] per Dr. Jefferson for a consult with Heme/Oncology for worsened metastatic disease on CT. PT already follows up with oncology for non small cell lung cancer. Dr. Jefferson is currently on the phone with at this time.
--- NOTE | 2025-02-15 10:45 | PC.NURSE ---
Dr. Jefferson speaking with [employer] at this time.
[2025-02-15 10:57] LABS: Troponin I < 0.01 ng/ml (0.00-0.034)
[2025-02-15] MEDS: LACTULOSE 20GM/30ML UDC 20 GM PO (11:03)
[2025-02-15 11:27] LABS: Reflex Lactic Add Lactic Reflex
== END 2025-02-15 11:12 | disposition home or self-care (01) ==
PROVIDERS: Emergency Provider Emergency Medicine; PCP Nurse Practitioner Family
DX: R10.9 Unspecified abdominal pain (principal); R31.9 Hematuria, unspecified; R00.0 Tachycardia, unspecified; R06.02 Shortness of breath; K59.00 Constipation, unspecified; C79.51 Secondary malignant neoplasm of bone; C34.90 Malignant neoplasm of unspecified part of unspecified bronchus or lung; F41.9 Anxiety disorder, unspecified; Z87.891 Personal history of nicotine dependence
CPT/HCPCS: 71275; 74177; 80053; 81001; 82803; 83690; 84436; 84443; 84484; 85007; 85025; 85027; 85610; 85730; 87040; 93005; 96361; 96374; 96375; 99291; J2270; J2405; J7120; Q9967

== ENCOUNTER 2025-03-08 13:03 | Emergency (ER) | payer MEDICAID, SELFPAY ==
--- OUTSIDE RECORDS SUMMARY | 2025-01-10 13:45 | XMS_ITS | Encounter Summary ---
Author Organization [facility] Address [address] [place] [address] Care Team Providers Care Solutions Manager Name Role Phone Constantine Stiles DIMA Primary Care Provider [phone] Farhat Gómez MD Unavailable Reason for Visit * Reason Comments Labs Peripheral stick RA Encounter Details Date Type Department Care Team (Latest Contact Info) Description 01/10/2025 1:45 PM EDT Clinical Support Pav [facility] [address] [facility] [address] [place] [address] Malignant neoplasm of upper lobe of left lung (CMS/HCC) Social History Tobacco Use Types Packs/Day Years Used Date Smoking Tobacco: Former Cigarettes 2 45.4 1 979 - 02/14/2024 Passive Smoke Exposure: Past Smokeless Tobacco: Never Alcohol Use Standard Drinks/Week Comments Not Currently 0 (1 standard drink = 0.6 oz pur e alcohol) Sex and Gender Information Value Date Recorded Sex Assigned at Not on file Legal Sex Male 10:53 AM EDT Gender Identity Not on file Sexual Orientation Not on file documented as of this encounter Plan of Treatment Upcoming Encounters Date Type Department Care Team (Late st Contact Info) Description 03/23/2025 8:30 AM EDT Appointment [facility] CT [address] [place] [address] 03/23/2025 10:30 AM EDT Clinical Support Pav [facility] 800 [facility] [address] [place] [address] 03/23/2025 11:00 AM EDT Office Visit Pav [facility] [address] [place] [address] Maninder Zhang MD [address] [place] [id number] 03/23/2025 12:00 PM EDT Appointment [facility] Infusion [address] [place] [address] documented as of this encounter Procedures Procedure Name Priority Date/Time Associated Diagnosis Comments CBC WITH AUTO DIFFERENTIAL Routine 01/10/2025 1:53 PM EDT Malignant neoplasm of upper lobe of left lung (CMS/HCC) COMPREHENSIVE METABOLIC PANEL, PLASMA Routine 01/10/2025 1:53 PM EDT Malignant neoplasm of upper lobe of left lung (CMS/HCC) documented in this encounter Results * (ABNORMAL) Comprehensive Metabolic Panel, Plasma (01/10/2025 1:53 PM EDT) Glucose, Plasma 209(H) 74 - 99 mg/dL 01/10/2025 2:43 PM EDT [facility] BUN, Plasma 8 8 - 23 mg/dL 01/10/2025 2:43 PM EDT [facility] Creatinine, Plasma 0.71 0.70 - 1.20 mg/dL 01/10/2025 2:43 PM EDT [facility] BUN/Creatinine Ratio 11 01/10/2025 2:43 PM EDT [facility] Sodium, Plasma 136 136 - 145 mmol/L 01/10/2025 2:43 PM EDT [facility] Potassium, Plasma 3.9 3.6 - 4.9 mmol/L 01/10/2025 2:43 PM EDT [facility] Chloride, Plasma 99 97 - 107 mmol/L 01/10/2025 2:43 PM EDT [facility] CO2, Plasma 24 22 - 29 mmol/L 01/10/2025 2:43 PM EDT [facility] Anion Gap 13 6 - 16 mmol/L 01/10/2025 2:43 PM EDT [facility] Total Calcium, Plasma 9.9 8.9 - 10.2 mg/dL 01/10/2025 2:43 PM EDT [facility] Total Protein 7.4 6.3 - 7.9 g/dL 01/10/2025 2:43 PM EDT [facility] Albumin, Plasma 3.6 3.5 - 5.2 g/dL 01/10/2025 2:43 PM EDT [facility] AST, Plasma 21 10 - 50 U/L 01/10/2025 2:43 PM EDT [facility] ALT, Plasma 34 10 - 50 U/L 01/10/2025 2:43 PM EDT [facility] Alkaline Phosphatase, Plasma 141(H) 40 - 115 U/L 01/10/2025 2:43 PM EDT [facility] Total Bilirubin, Plasma 0.2 0.2 - 1.1 mg/dL 01/10/2025 2:43 PM EDT [facility] eGFRcr 104.4 mL/min/1.7 3m*2 01/10/2025 2:43 PM EDT [facility] Comment:Reported eGFRcr in m L/min/1.73m2 is based the CKD-EPI 2020 equation that does not use a race coefficient. Blood Venous blood specimen / Unknown Venipuncture / Unknown 01/10/2025 1:53 PM EDT 01/10/2025 2:13 PM EDT us Maninder Zhang MD LAB BLOOD ORDERABLES Final Resul t [facility] [address] [place] [address] * (ABNORMAL) CBC and Differential (01/10/2025 1:53 PM EDT) WBC Count 12.60(H) 3.70 - 10.30 10*3/uL LAB HEMATOLOGY METHOD 01/10/2025 2:31 PM EDT [facility] RBC Count 3.22(L) 4.60 - 6.10 10*6/uL LAB HEMATOLOGY METHOD 01/10/2025 2:31 PM EDT [facility] HGB 9.2(L) 13.7 - 17.5 g/dL LAB HEMATOLOGY METHOD 01/10/2025 2:31 PM EDT [facility] HCT 29.5(L) 40.0 - 51.0 % LAB HEMATOLOGY METHOD 01/10/2025 2:31 PM EDT [facility] Platelet Count 299 155 - 369 10*3/uL LAB HEMATOLOGY METHOD 01/10/2025 2:31 PM EDT [facility] MCV 92 79 - 98 fL LAB HEMATOLOGY METHOD 01/10/2025 2:31 PM EDT [facility] MCH 28.6 26.0 - 32.0 pg LAB HEMATOLOGY METHOD 01/10/2025 2:31 PM EDT [facility] MCHC 31.2 30.7 - 35.5 g/dL LAB HEMATOLOGY METHOD 01/10/2025 2:31 PM EDT [facility] RDW 20.0(H) 11.5 - 14.5 % LAB HEMATOLOGY METHOD 01/10/2025 2:31 PM EDT [facility] MPV 8.6(L) 8.8 - 12.5 fL LAB HEMATOLOGY METHOD 01/10/2025 2:31 PM EDT [facility] nRBC 0.0 <=0.0 per 100 WBCs LAB HEMATOLOGY METHOD 01/10/2025 2:31 PM EDT [facility] Differential Type Automated LAB HEMATOLOGY METHOD 01/10/2025 2:31 PM EDT [facility] Neutrophils % 91 % LAB HEMATOLOGY METHOD 01/10/2025 2:31 PM EDT [facility] Lymphocytes % 3 % LAB HEMATOLOGY METHOD 01/10/2025 2:31 PM EDT [facility] Monocytes % 5 % LAB HEMATOLOGY METHOD 01/10/2025 2:31 PM EDT [facility] Eosinophils % 0 % LAB HEMATOLOGY METHOD 01/10/2025 2:31 PM EDT [facility] Basophils % 0 % LAB HEMATOLOGY METHOD 01/10/2025 2:31 PM EDT [facility] Immature Granulocytes % 1 % LAB HEMATOLOGY METHOD 01/10/2025 2:31 PM EDT [facility] Neutrophils Absolute 11.37(H) 1.60 - 6.10 10*3/uL LAB HEMATOLOGY METHOD 01/10/2025 2:31 PM EDT [facility] Lymphocytes Absolute 0.43(L) 1.20 - 3.90 10*3/uL LAB HEMATOLOGY METHOD 01/10/2025 2:31 PM EDT [facility] Monocytes Absolute 0.66 0.30 - 0.90 10*3/uL LAB HEMATOLOGY METHOD 01/10/2025 2:31 PM EDT [facility] Eosinophils Absolute 0.01 0.00 - 0.50 10*3/uL LAB HEMATOLOGY METHOD 01/10/2025 2:31 PM EDT [facility] Basophils Absolute 0.04 0.00 - 0.10 10*3/uL LAB HEMATOLOGY METHOD 01/10/2025 2:31 PM EDT [facility] Immature Granulocytes Absolute 0.09(H) 0.00 - 0.06 10*3/uL LAB HEMATOLOGY METHOD 01/10/2025 2:31 PM EDT [facility] Blood Venous blood specimen / Unknown Venipuncture / Unknown 01/10/2025 1:53 PM EDT 01/10/2025 2:19 PM EDT Narrative [facility] - 01/10/2025 2:31 PM EDT Therapeutic decision making should be based on absolute values, rather than percentages. us Maninder Zhang MD LAB BLOOD ORDERABLES Final Resul t [facility] [address] [place] [address] documented in this encounter Visit Diagnoses Diagnosis Malignant neoplasm of upper lobe of left lung (CMS/HCC) documented in this encounter Additional Health Concerns Assessment Noted Time A fall risk assessment has been complete d for the patient 12/27/2024 3:32 PM EDT A Body Mass Index follow-up plan has been documented for the patient 12/15/2024 4:25 PM EDT documented as of this encounter Care Teams Solutions Manager Relationship Specialty Start Date End Date Constantine Stiles APRN [address] [place] [address] PCP - General 01/21/23 Farhat Gómez MD [address] [address] Consulting Physician Radiation Oncology 10/27/24 documented as of this encounter
--- OUTSIDE RECORDS SUMMARY | 2025-01-10 14:23 | XMS_ITS | Encounter Summary ---
Author Organization [facility] Address [address] [place] [address] Care Team Providers Care Plant Custodian Name Role Phone Darryldejon Constantine Dejon CH Primary Care Provider [phone] Farhat Gómez MD Unavailable Reason for Referral * Imaging (Routine) - Closed Specialty Diagnoses / Procedures Referred By Contac t Referred To Contact Radiology Diagnoses Malignant neoplasm of upper lobe of left lung (CMS/HCC) Procedures CT Chest w IV Contrast Maninder Zhang MD [address] [address] Phone: tel: fax: Referral ID Status Reason Start Date Expiration Date Visits Re quested Visits Authorized [id number] Closed 12/08/2024 06/09/2026 1 1 Reason for Visit * Imaging (Routine) - Closed Specialty Diagnoses / Procedures Referred By Hugo maurice Referred To Contact Radiology Diagnoses Malignant neoplasm of upper lobe of left lung (CMS/HCC) Procedures CT Chest w IV Contrast Maninder Zhang MD [address] [address] Phone: tel: fax: Referral ID Status Reason Start Date Expiration Date Visits Re quested Visits Authorized [id number] Closed 12/08/2024 06/09/2026 1 1 Encounter Details Date Type Department Care Team (Latest Contact Info) Description 01/10/2025 2:23 PM EDT - 01/10/2025 11:59 PM EDT Hospital Encounter [facility] [address] [place] [address] Malignant neoplasm of upper lobe of left lung (CMS/HCC) Discharge Disposition: Home or Self Care Social History Tobacco Use Types Packs/Day Years [...] on file documented as of this encounter Medications at Time of Discharge albuterol 108 (90 Base) MCG/ACT inhaler if needed. 02/10/2024 buprenorphine-na loxone (Suboxone) 8-[address] 1 tablet under the tongue daily. 01/09/2023 docusate sodium (Colace) 100 MG capsule Take 1 capsule by mouth daily. 01/06/2025 gabapentin (Neurontin) 600 MG tablet Take 1 tablet (600 mg) by mouth 2 (two) times a day. 12/23/2022 gabapentin (Neurontin) 800 MG tablet Take 1 tablet (800 mg) by mouth 2 (two) times a day. 11/03/2024 guaiFENesin (MUCINEX PO) Take by mouth 2 (two) times a day if needed. ibuprofen 200 MG tablet Take 2 tablets (400 mg) by mouth every 6 hours as needed for mild pain. magnesium citrate 1.745 GM/30ML oral solution drink 296 ML BY MOUTH ONCE NEEDED FOR constipation 01/06/2025 nicotine polacrilex (Nicorette) 2 MG gum 07/01/2024 ondansetron (Zofran) 8 MG tabletIndication s:Malignant neoplasm of upper lobe of left lung (CMS/HCC) Take 1 tablet by mouth in the morning and 1 tablet before bedtime. Take for two days, starting the day after chemotherapy and then take PRN. 30 tablet 5 12/20/2024 oxygen (O2) gas Inhale 2 L/min continuously at 120,000 mL/hr. via nasal canula prochlorperazine (Compazine) 10 MG tabletIndication s:Malignant neoplasm of upper lobe of left lung (CMS/HCC) Take 1 tablet by mouth every 6 hours as needed for nausea or vomiting. 30 tablet 5 12/20/2024 senna-docusate sodium (Senokot-S) 8.6-50 MG tablet Take 1 tablet by mouth 2 (two) times a day as needed for constipation. 60 tablet 2 12/01/2024 Stiolto Respimat 2.5-2.5 MCG/ACT aerosol solution inhaler 1 (one) time each day. 02/10/2024 tamsulosin (Flomax) 0.4 MG 24 hr capsule Take by mouth daily. 01/06/2025 Vraylar 1.5 MG capsule Take 1 capsule (1.5 mg) by mouth daily. 03/09/2024 cyclobenzaprine (Flexeril) 10 MG tablet Take 1 tablet (10 mg) by mouth 2 (two) times a day as needed for muscle spasms. 30 tablet 1 12/06/2024 documented as of this encounter Miscellaneous Notes * Narendra Del Toro P - 01/10/2025 2:40 PM EDT Images from the original note were not included. 1639 Caring for Yourself after Contrast Imaging If you had ORAL contrast: ?? You can go back to your normal diet and activities as tolerated. ?? Drink plenty of fluids, unless told otherwise. If you had IV contrast: ?? You can go back to your normal diet and activities as tolerated. ?? Drink plenty of fluids, unless told otherwise. ?? Leave a bandage on the site for 30 minutes (where the IV was inserted or blood was drawn). If you had Intravesical (bladder) contrast: ?? Return to normal diet and activity. What you need to know about delayed reaction to IV contrast What is IV Contrast? ?? Contrast is a dye that is put into your body through an IV. ?? It is used for imaging scans such as CT scans and MRIs. ?? The contrast makes blood vessels, organs and other parts of your body show up better on the scan. What do I need to do after IV contrast? ?? Drink lots of fluids. This will help flush the contrast out of your system. ?? Drink 2-3 extra glasses or bottles of water within 4 hours of your scan. What is a contrast reaction? ?? A contrast reaction is a bad side effect from the contrast dye. ?? It is rare but it does happen. ?? They can be mild - such as sneezing, itching, or hives. ?? They can be severe - such as trouble breathing, throat swelling, and irregular heart beat. When do these reactions happen? ?? They often happen right after the contrast is injected. ?? Some happen hours after going home. Go to the nearest Emergency Department right away if you have any of these symptoms after you leavethe clinic or hospital. ?? Sneezing ?? Itching in your mouth, throat, eyes, ears, or skin ?? Rash or hives ?? Throwing up or stomach sickness ?? High heart rate or ?racing? of your heart ?? Feeling dizzy or woozy ?? Feeling short of breath or like you can?t take a deep breath ?? Feeling very anxious for no other reason It is very important that these reactions be treated. Tell the doctor or nurse that you are having a reaction to IV contrast dye. Do not ignore any sign of a reaction! All reactions must be assessed by a doctor. Call 911 if you are alone and your reaction is more than mild sneezing or itching. If you have a mild reaction, call to speak with a Radiologist, explain that you havehad a contrast reaction, as this needs to be added to your medical record. documented in this encounter Plan of Treatment Upcoming Encounters Date Type Department Care Team ([facility] st Contact Info) Description 03/23/2025 8:30 AM EDT Appointment [facility] CT [address] [place] [address] 03/23/2025 10:30 AM EDT Clinical Support Pav [facility] Respiratory [address] [facility]nd [place] [address] 03/23/2025 11:00 AM EDT Office Visit [facility] [address] [place] [address] Maninder Zhang MD [address] [place] [address] 03/23/2025 12:00 PM EDT Appointment [facility] [address] [place] [address] documented as of this encounter Procedures Procedure Name Priority Date/Time Associated Diagnosis Comments CT CHEST W IV CONTRAST Routine 01/10/2025 3:09 PM EDT Malignant neoplasm of upper lobe of left lung (CMS/HCC) documented in this encounter Results * CT Chest w IV Contrast (01/10/2025 3:09 PM EDT) Anatomical Region Laterality Modality Chest Computed Tomogra phy Impressions 01/10/2025 4:21 PM EDT Previously discrete lesions are now confluent, from the left hilum to the AP window to the prevascular mediastinum, interval increase in maximum diameter, 16 mm. Anterior left upper pulmonary lobe pericystic nodule has increased, now 19 x 11 mm. Posterior left upper pulmonary lobe nodule has minimally decreased in size in the interval. New left upper renal pole 25 mm hypodensity with irregular-appearing margins; recommend dedicated evaluation such as US or MR abdomen without and with contrast renal protocol. CRITICAL RESULT: No. COMMUNICATION: These findings were discussed via secure chat with Maninder Zhang MD on 01/10/2025 4:20 PM by Cindi Washington MD. Drafted by Cindi Washington MD on 01/10/2025 3:58 PM Final report signed by Cindi Washington MD on 01/10/2025 4:21 PM Narrative 01/10/2025 4:21 PM EDT CLINICAL INDICATION: cancer evaluation TECHNIQUE: Multiple CT helical images were obtained from thoracic inlet through upper abdomen with administration of IV contrast. 100 mL of Omnipaque-300 were administered intravenously. Total DLP (Dose-Length Product): 78.41 mGy.cm. Please note: The reported value represents the total of one or more individual components during the CT acquisition on this date and at this time, and as such, the same value may appear in more than one CT report depending on the interpreting/reporting physicians. COMPARISON: PET/CT October 15, [address] with contrast June 18, 2024. FINDINGS: Mediastinum and Pleura: Increased 16mm hypodensity, now confluent from the AP window extending anteriorly and also left laterally into the left hilum; previously this was multiple discrete hypodense lymph nodes. No right hilar adenopathy. No pleural or pericardial effusion. No significant coronary artery calcifications. Lungs: Severe emphysema. Increased cyst wall nodule size in the anterior aspect of the left upper pulmonary lobe, now 19 x 11 mm. Slightly decreased posterior left apical pulmonary nodule size, now 11 mm in maximum diameter, decreased from 13 mm. Upper Abdomen: No suspicious lesions in the partially visualized upper abdomen. New superior renal pole hypodensity, irregular contours, approximately 25 mm in maximum craniocaudal dimension, incompletely characterized. Right kidney is not visualized. Musculoskeletal: No suspicious lytic or sclerotic lesion. Procedure Note Cindi Washington MD - 01/10/2025 CLINICAL INDICATION: cancer evaluation TECHNIQUE: Multiple CT helical images were obtained from thoracic inlet through upperabdomen with administration of IV contrast. 100 mL of Omnipaque-300 wereadministered intravenously. Total DLP (Dose-Length Product): 78.41 mGy.cm. Please note: The reportedvalue represents the total of one or more individual components during theCT acquisition on this date and at this time, and as such, the same valuemay appear in more than one CT report depending on theinterpreting/reporting physicians. COMPARISON: PET/CT October 15, [address] with contrast June 18, 2024. FINDINGS: Mediastinum and Pleura: Increased 16mm hypodensity, now confluent from theAP window extending anteriorly and also left laterally into the lefthilum; previously this was multiple discrete hypodense lymph nodes. Noright hilar adenopathy. No pleural or pericardial effusion. No significantcoronary artery calcifications. Lungs: Severe emphysema. Increased cyst wall nodule size in the anterioraspect of the left upper pulmonary lobe, now 19 x 11 mm. Slightlydecreased posterior left apical pulmonary nodule size, now 11 mm inmaximum diameter, decreased from 13 mm. Upper Abdomen: No suspicious lesions in the partially visualized upperabdomen. New superior renal pole hypodensity, irregular contours,approximately 25 mm in maximum craniocaudal dimension, incompletelycharacterized. Right kidney is not visualized. Musculoskeletal: No suspicious lytic or sclerotic lesion. IMPRESSION: Previously discrete lesions are now confluent, from the left hilum to theAP window to the prevascular mediastinum, interval increase in maximumdiameter, 16 mm. Anterior left upper pulmonary lobe pericystic nodule has increased, now 19x 11 mm. Posterior left upper pulmonary lobe nodule has minimally decreased in sizein the interval. New left upper renal pole 25 mm hypodensity with irregular-appearingmargins; recommend dedicated evaluation such as US or MR abdomen withoutand with contrast renal protocol. CRITICAL RESULT: No. COMMUNICATION: These findings were discussed via secure chat with Maninder Zhang MD on01/10/2025 4:20 PM by Cindi Washington MD. Drafted by Cindi Washington MD on 01/10/2025 3:58 PM Final report signed by Cindi Washington MD on 01/10/2025 4:21 PM Maninder Zhang MD IMG CT PROCEDURES Final Result documented in this encounter Visit Diagnoses Diagnosis Malignant neoplasm of upper lobe of left lung (CMS/HCC) documented in this encounter Administered Medications Inactive Administered Medications - up to 3 most recent administrations Medication Order MAR Action Action Date Dose Rate Site iohexol (OMNIPaque) 300 MG/ML injection 100 mL 100 mL, Intravenous, Once in imaging, 1 dose, Starting on Fri01/10/25 at 1440, Until Fri01/10/25 at 1507, Routine, Imaging Protocol Orders Given 01/10/2025 3:07 PM EDT 100 mL documented in this encounter Additional Health Concerns Assessment Noted Time A fall risk assessment has been complete d for the patient 12/27/2024 3:32 PM EDT A Body Mass Index follow-up plan has been documented for the patient 12/15/2024 4:25 PM EDT documented as of this encounter Care Teams Plant Custodian Relationship Specialty Start Date End Date Constantine Stiles APRN [address] [place] [address] PCP - General 01/21/23 Farhat Gómez MD [address] [address] Consulting Physician Radiation Oncology 10/27/24 documented as of this encounter
--- OUTSIDE RECORDS SUMMARY | 2025-01-12 10:20 | XMS_ITS | Encounter Summary ---
Author Organization [facility] Address [address] [place] [address] Care Team Providers Care Traveling Representative Name Role Phone Constantine Stiles APRN Primary Care Provider [phone] Farhat Gómez MD Unavailable Reason for Visit * Reason Comments Follow-up Encounter Details Date Type Department Care Team (Late st Contact Info) Description 01/12/2025 10:20 AM EDT Office Visit [facility] Head[facility] Neck [facility] Respiratory [address] [facility]nd [place] [address] Maninder Zhang MD [address] [facility] [address] [place] [address] Malignant neoplasm of upper lobe of left lung (CMS/HCC) (Primary Dx); Squamous cell carcinoma of left lung; Elevated glucose level; Encounter for antineoplastic chemotherapy Social History Tobacco Use Types Packs/Day Years [...] on file documented as of this encounter Last Filed Vital Signs Vital Sign Reading Time Taken Comments Blood Pressure 115/77 01/12/2025 10:37 AM EDT Pulse 104 01/12/2025 10:37 AM EDT Temperature 36.9 C (98.4 F) 01/12/2025 10:37 AM EDT Respiratory Rate 16 01/12/2025 10:37 AM EDT Oxygen Saturation 97% 01/12/2025 10:37 AM EDT Inhaled Oxygen Concentration - - Weight 65.8 kg (145 lb 1 oz) 01/12/2025 10:37 AM EDT Height 175.3 cm (5' 9 ) 01/12/2025 10:37 AM EDT Body Mass Index 21.42 01/12/2025 10:37 AM EDT documented in this encounter Miscellaneous Notes * Addendum Note - Zacarias Stern, PharmD - 01/12/2025 10:20 AM EDTAddended by: ZAACRIAS STERN on: 01/13/2025 11:28 AM Modules accepted: Orders * Progress Notes - Carolin Churchill DO - 01/12/2025 10:20 AM EDT Patient Information Patient Name: Bryson Teixeira Jr. Date of : 1965 REFERRING PHYSICIAN: No referring provider defined for this encounter. Encounter Date: 01/12/2025 Patient Care Team: Constantine Stiles APRN as PCP - General Farhat Gómze MD as Consulting Physician (Radiation Oncology) Chief Complaint Patient presents with Follow-up Context: Dr. Zhang was asked to see .Bryson Teixeira Jr. by Dr Shannon in consultation regarding his lung cancerand my advice regarding treatment of this cancer. He is a 59 y.o. male light tobacco user who quit 45 years ago with COPD. He was recently found to have a ROSENDO nodule measuring 12 mm along with another nodule. PET CT ordered confirmed the ROSENDO as PET avid but not others. He is asymptomatic. He subsequently went on to get bronchoscopy on 03/02/24 which he tolerated it well. Pathology came back as NSCLC favoring squamous cell. The tumor stained positive for P40 and all others stained negative. Level 11 node was also negative. PD-L1 Staining was 20%. He was referred to radiation oncology for possible SBRT with Dr Dalton who saw him on 03/10/24. He wasseen previously at our clinic to discuss whether additional treatment is indicated. The patient pres ents today (01/12/2025) for follow up evaluation after starting IMRT earlier before visit. Oncology Diagnosis and Treatment History: Oncology History Malignant neoplasm of upper lobe of left lung (CMS/HCC) 03/10/2024 Initial Diagnosis Malignant neoplasm of upper lobe of left lung (CMS/HCC) 03/10/2024 Cancer Staged Staging form: Lung, AJCC 8th Edition, Clinical: cT1, cN0, cM0 - Signed by Lars Dalton MD on 03/10/2024 11/17/2024 - 12/22/2024 Chemotherapy CARBOplatin (Paraplatin) 190 mg in sodium chloride 0.9 % 100 mL chemo IVPB, 190 mg, Intravenous, Once, 6 of 6 cycles Administration: 190 mg (11/17/2024), 240 mg (11/24/2024), 250 mg (12/08/2024), 250 mg (12/15/2024), 250 mg (12/01/2024), 250 mg (12/22/2024) PACLitaxel (Taxol) 84 mg in sodium chloride 0.9 % 100 mL IVPB, 45 mg/m2 = 84 mg, Intravenous, Once,6 of 6 cycles Administration: 84 mg (11/17/2024), 84 mg (11/24/2024), 84 mg (12/08/2024), 84 mg (12/15/2024), 84 mg (12/01/2024), 84 mg (12/22/2024) Squamous cell carcinoma of left lung 03/10/2024 Initial Diagnosis Squamous cell carcinoma of left lung (CMS/HCC) 03/10/2024 - 10/27/2024 Radiation Therapy The patient saw Farhat Gómez MD for radiation treatment. This is the current list of radiation treatment: SBRT: Left Lung (Resolved) Treatment Period Fraction Dose Fractions Total Dose Course C1 04/14/2024-04/14/2024 (days elapsed: 0) Plans Planned LeftLung SBRT 04/14/2024-04/14/2024 3,000 cGy 3,000 cGy Reference Points Delivered Left Lung SBRT 04/14/2024-04/14/2024 -- -- 3,000 cGy Course IMRT QA 11/09/2024-11/09/2024 (days elapsed: 0) Plans Planned LeftLung SBRT 11/09/2024-11/09/2024 3,000 cGy 0 / 1 3,000 cGy Lung/Media 11/09/2024-11/09/2024 180 cGy 0 / 1 180 cGy Reference Points Delivered Verification 11/09/2024-11/09/2024 -- -- 0 cGy Verification1 11/09/2024-11/09/2024 -- -- 0 cGy 10/24/2024 - Radiation Therapy The patient saw Farhat Gómez MD for radiation treatment. This is the current list of radiation treatment: VMAT: Not Applicable Lung Treatment Period Fraction Dose Fractions Total Dose Course C2 11/17/2024-12/28/2024 (days elapsed: 41) Plans Planned Lung/Media 11/17/2024-12/28/2024 200 cGy 30 / 30 6,000 cGy Reference Points Delivered Lung/Mediastinum 11/17/2024-12/28/2024 -- -- 6,000 cGy 10/27/2024 Cancer Staged Staging form: Lung, AJCC 8th Edition, Clinical stage from 10/27/2024: Stage IIIA (ycT1c, cN2, cM0) -Signed by Maninder Zhang MD on 10/28/2024 Interval History Mr Teixeira is here for follow up with labs prior to starting chemotherapy (PACLItaxel / CARBOplatin + XRT Every 7 Days) now C4 given weekly. Reports decreased energy and R sided flank pain that resolves with tylenol. Does wake him from sleep. Denies headaches, dizziness, sob, cough, chest pain, n/v/d/c, burning with urination, abdominal pain. Reports poor po intake. All other 14 point ROS within normal limits. Past Medical, Surgical, Family and Social History Past Medical History: Diagnosis Date COPD (chronic obstructive pulmonary disease) (CMS/HCC) Dental disease full dentures Hip pain Hip pain, acute, right Leg pain Lower back pain Shortness of breath Wears dentures Past Surgical History: Procedure Laterality Date BACK SURGERY N/A Family History Problem Relation Name Age of Onset Heart Problem Mother Colon cancer Brother Liver cancer Brother Cancer Other Heart Problem Other Hypertension Other Stroke Other There is not a family history of cancer. Social History Tobacco Use Smoking status: Former Current packs/day: 0.00 Average packs/day: 2.0 packs/day for 45.4 years (90.8 ttl pk-yrs) Types: Cigarettes Start date: 1978 Quit date: 02/14/2024 Years since quittin.9 Passive exposure: Past Smokeless tobacco: Never Vaping Use Vaping status: Never Used Substance Use Topics Alcohol use: Not Currently Drug use: Not Currently Allergies and Adverse Drug Reactions Patient has no known allergies. Medications Current Outpatient Medications: albuterol 108 (90 Base) MCG/ACT inhaler, if needed., Disp: , Rfl: buprenorphine-naloxone (Suboxone) 8-2 MG SL tablet, Place 1 tablet under the tongue daily., Disp: ,Rfl: cyclobenzaprine (Flexeril) 10 MG tablet, Take 1 tablet (10 mg) by mouth 2 (two) times a day as needed for muscle spasms., Disp: 30 tablet, Rfl: 1 docusate sodium (Colace) 100 MG capsule, Take 1 capsule by mouth daily., Disp: , Rfl: gabapentin (Neurontin) 800 MG tablet, Take 1 tablet (800 mg) by mouth 2 (two) times a day., Disp: ,Rfl: guaiFENesin (MUCINEX PO), Take by mouth 2 (two) times a day if needed., Disp: , Rfl: ibuprofen 200 MG tablet, Take 2 tablets (400 mg) by mouth every 6 hours as needed for mild pain., Disp: , Rfl: magnesium citrate 1.745 GM/30ML oral solution, drink 296 ML BY MOUTH ONCE NEEDED FOR constipation, Disp: , Rfl: nicotine polacrilex (Nicorette) 2 MG gum, , Disp: , Rfl: ondansetron (Zofran) 8 MG tablet, Take 1 tablet by mouth in the morning and 1 tablet before bedtime. Take for two days, starting the day after chemotherapy and then take PRN., Disp: 30 tablet, Rfl: 5 oxygen (O2) gas, Inhale 2 L/min continuously at 120,000 mL/hr. via nasal canula, Disp: , Rfl: prochlorperazine (Compazine) 10 MG tablet, Take 1 tablet by mouth every 6 hours as needed for nausea or vomiting., Disp: 30 tablet, Rfl: 5 senna-docusate sodium (Senokot-S) 8.6-50 MG tablet, Take 1 tablet by mouth 2 (two) times a day as needed for constipation., Disp: 60 tablet, Rfl: 2 Stiolto Respimat 2.5-2.5 MCG/ACT aerosol solution inhaler, 1 (one) time each day., Disp: , Rfl: tamsulosin (Flomax) 0.4 MG 24 hr capsule, Take by mouth daily., Disp: , Rfl: Vraylar 1.5 MG capsule, Take 1 capsule (1.5 mg) by mouth daily., Disp: , Rfl: gabapentin (Neurontin) 600 MG tablet, Take 1 tablet (600 mg) by mouth 2 (two) times a day. (Patientnot taking: Reported on 01/12/2025), Disp: , Rfl: Subjective Review of Systems: 14 ROS were all negative except found in HPI Objective Performance Status ECOG1 Visit Vitals BP 115/77 (BP Location: Right arm) Pulse 104 Temp 36.9 ??C (98.4 ??F) (Oral) Resp 16 BMI: Estimated body mass index is 21.42 kg/m?? as calculated from the following: Height as of this encounter: 1.753 m (5' 9 ). Weight as of this encounter: 65.8 kg (145 lb 1 oz). BSA: Estimated body surface area is 1.79 meters squared as calculated from the following: Height as of this encounter: 1.753 m (5' 9 ). Weight as of this encounter: 65.8 kg (145 lb 1 oz). EXAM GENERAL: Normal appearing, alert, male in no acute distress , No oxygen EYES: PERRLA EOMI; No scleral icterus HEENT: OP clear, no evidence of oral lesions, mucosal ulceration. The tongue is mobile, tonsils arepresent, and palatal elevation is normal. NECK: Supple, without thyromegaly or adenopathy. NODES: no axillary nodes are noted RESPIRATORY: Clear to auscultation. No rhonchi, rubs or wheezes are heard. HEART: regular without murmur, rub or gallop, PMI non-displaced ABDOMEN: positive bowel sounds, non-tender, non-distended, No hepatomegaly, no splenomegaly, no other masses noted EXT: No edema, pulses 2+ in posterior tibial/dorsalis pedis, SKIN: No rash or subcutaneous nodules, no bruising NEURO: Alert, Oriented x 3, CN II-XII intact. 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 affect appropriate, memory intact to short and long-term events, gait normal Pathology Final Diagnosis (no units) Date/Time Value 03/02/2024 1326 A. LUNG, LEFT UPPER LOBE, ION ROBOTIC NAVIGATIONAL FINE NEEDLE ASPIRATION - NON-DIAGNOSTIC. B. LUNG, LEFT UPPER LOBE, TRANSBRONCHIAL BIOPSY: - POSITIVE FOR MALIGNANCY, CONSISTENT WITH SQUAMOUS CELL CARCINOMA. C. LYMPH NODE, 11L, ENDOBRONCHIAL ULTRASOUND GUIDED FINE NEEDLE ASPIRATION: - NO EVIDENCE OF MALIGNANCY. Comment (no units) Date/Time Value 03/02/2024 1326 Insufficient tumor cells are present for NGS. A PD-L1 IHC stain has been ordered but may also lack sufficient cells in the tissue section. Addendum (no units) Date/Time Value 03/02/2024 1326 PD-L1 IHC 22C3 pharmDx* is performed and the results are as follows: - Tumor proportion score (TPS)*: 20% - Expression level: Positive for PD-L1 expression (TPS 1-49%) Comments to treating physician: Pembrolizumab is indicated for treatment of patients with metastatic NSCLC whose tumors have high PD-L1 expression (TPS greater than or equal to 50%) as determined by an FDA-approved test, with no EGFR or ALK genomic tumor aberrations, and no prior systemic chemotherapy treatment for metastatic NSCLC. Pembrolizumab is also indicated for the treatment of patients with metastatic NSCLC whose tumorsexpress PD-L1 (TPS greater than or equal to 1%) as determined by an FDA-approved test, with diseaseprogression on or after [place]-containing chemotherapy. Patients with EGFR or ALK genomic tumor aberrations should have disease progression on FDA-approved therapy for these aberrations prior to rec eiving Pembrolizumab. PD-L1 IHC serves as a complementary diagnostic in regards to other PD-L1/YW-6-zqgshthfqvvftcesx (Nivolumab, Atezolizumab, Durvalumab, etc). Expression level: >Negative for PD-L1 expression (TPS less than 1%) >Positive for PD-L1 expression (TPS 1-49%) >Positive for high PD-L1 expression (TPS greater than or equal to 50%) *PD-L1 IHC 22C3 pharmDx is a FDA-approved brake reliner diagnostic for pembrolizumab performed on Dako [email or web address] Stainer using formalin-fixed, paraffin imbedded (FFPE) tissue from non-small mireille lung carcinomas. Positivity is scored only in viable tumor cells with membrane staining (partial or complete) of greater than or equal to 1+ intensity. The TPS is estimated by manual quantification of PD-L1 positivity. Certain tissue processing factors such as decalcification, formalin fixation time outside an acceptable range (12 to 72 hrs), and prolonged time to fixation can affect PD-L1 staining/expression levels and results should be interpreted with caution in such instances. Additionally, tissue from older (greater than 5 yrs) formalin-fixed paraffin-embedded blocks may lose PD-L1 immunoreactivity. This assay is not validated for decalcified specimens. All controls show appropriate reactivity. All immunohistochemistry, in situ hybridization, and histochemical tests were developed by and are performed at the [facility], [address] [place] [address]. All tests reported here, except those addressing HER2 and PD-L1 expression as predictive markers, have not been cleared by or approved by the US Food and Drug Administration (FDA). The laboratory is regulated under CLIA as qualified to perform high-complexity testing. The tests are used for clinical purposes. They should not be regarded as investigational or for research. LABORATORIES AND IMAGING STUDIES: reviewed by me personally Lab Results Component Value Date WBC 12.60 (H) 01/10/2025 RBC 3.22 (L) 01/10/2025 HGB 9.2 (L) 01/10/2025 HCT 29.5 (L) 01/10/2025 MCV 92 01/10/2025 MCHC 31.2 01/10/2025 RDW 20.0 (H) 01/10/2025 PLT 299 01/10/2025 MPV 8.6 (L) 01/10/2025 Lab Results Component Value Date BUN 8 01/10/2025 CL 99 01/10/2025 NA 136 01/10/2025 K 3.9 01/10/2025 TP 7.4 01/10/2025 AST 21 01/10/2025 ALT 34 01/10/2025 No image results found. I visualized the recent imaging and discussed the current radiology findings with the patient in detail and released the report gave copies of the reports to the patient and answered all questions. === 06/18/24 === CT CHEST WO IV CONTRAST COMPARISON: March 02, 2024 FINDINGS: Mediastinum and Pleura: Stable mild mediastinal and hilar adenopathy. Previously measured right paratracheal lymph node is stable at 11 mm short axis versus 10. No pleural or pericardial effusions. Lungs: Severe centrilobular emphysema. Stable subpleural nodule in the lingula. Stable 10 mm noduleleft upper lobe image 24. The left millimeter nodule with adjacent fibrosis in the anterior left upper lobe is stable. However, there is some increased nodularity adjacent to this, measuring 18 mm long axis. No other new or enlarging nodules are identified. Upper Abdomen: Prior right nephrectomy. Musculoskeletal: No suspicious lytic or sclerotic lesion. IMPRESSION: Previously noted pulmonary nodules and adenopathy are stable. There is increasing nodularity adjacent to the previously noted left anterior upper lobe nodule, which could represent disease progression, or could be infectious or fibrotic in etiology. Recommend attention on follow-up. PET/CT may be helpful for further evaluation. PET 10/15/24 COMPARISON/CORRELATION: Compared to F-18 FDG PET/CT 01/19/2024 performed at another facility where standardized uptake value (SUV) measurements may not be comparable to [facility] SUV measurements due to tumor biology, incubation period, size and location of the lesion, and lean body mass. Correlated with thoracic CTs from 06/18/2024 and 03/02/2024. FINDINGS: Technical quality: Diagnostic. Measurements: Unless otherwise specified, all SUVs refer to maximum value in the target (mSUV). Mean SUV liver: 2.6, previously 2. Head and Neck: No suspicious focal hypermetabolic uptake. Mild to moderate right maxillary and ethmoidal sinus mucosal disease that is overall improved when compared to prior PET/CT in January 2024. No obvious space-occupying brain parenchymal masses. Unremarkable thyroid. No cervical or supraclavicular adenopathy. Chest: Increased soft tissue bulk and increased FDG avidity of the hypermetabolic spiculated marginated primary neoplastic mass within the anterior left upper lobe when compared to outside PET/CT from January 2024. The mass measures 30 x 20 mm and SUV max of 14.6 on image 122 compared to 11 x 6 mm and SUV maxof 3.1 previously when remeasured similarly. The contiguous superior component also shows greater size and metabolic activity with interval development of eccentric cavitary change on image 116. The size has gradually increased between the February 2024, June 2024 and current study. There is perhaps another intensely hypermetabolic irregularly/spiculated marginated suprahilar leftupper lobe nodule on image 134 measuring 26 x 20 mm that may have some continuity with the aforementioned neoplastic islands of disease. This appears to have significantly progressed within the past 4 months, measuring at most 11 x 8 mm on the June [address] when remeasured similarly. There is associated increased metabolic and FDG avidity of the metastatic multistation right hilar,AP window, prevascular, upper right paratracheal and high left paratracheal/infraclavicular lymph nodes. The kate metastatic disease appears to have significantly progressed only recently when comparing to the June [address] For example: *~20 mm short axis left hilar lymph node on image 131with SUV max of 6.3 previously measured 13 mm on the June 2024 CT N1 *18 mm short axis prevascular lymph node on image 124 with SUV max of 5.7 previously measured 6 mm on the June 2024 CT N2 *High left paratracheal/infraclavicular lymph nodes measuring 12 mm short axis and SUV max 13.5 on image 103 appears new when compared to June 2024 The rim hypermetabolic pattern of uptake within the largest metastatic prevascular and left hilar kate stations suggests an element of central necrosis. There is no significant hypermetabolic uptake within the prominent and partially calcific right lower paratracheal and right hilar lymph nodes which are favored to be benign/chronic granulomatous. A 10-12 mm posterior left apical upper lobe pulmonary nodule on image 110 is unchanged and shows nofocal hypermetabolism, as before. Another 10 mm lingular nodule on image 173 shows no suspicious focal hypermetabolism and has remained unchanged from at least 10 months prior. Overall, both of theseare probably benign or largely treated. Severe emphysema. Left atrial enlargement. Cardiac size within normal limits. Mild coronary artery calcific atherosclerosis. Borderline ectatic caliber of the thoracic aorta. No pleural or pericardial effusions. There is nonspecific nodular thickening of the pleural/extrapleural tenting within the dependent lower lobes that is nonspecific and does not show overt hypermetabolism. IMPRESSION: Significant disease progression when compared to 01/19/2024 PET/CT with increase in bulk and metabolic activity of the left upper lobe neoplastic primary as well as enlarging and new ipsilateral hilar,prevascular and high left paratracheal/infraclavicular adenopathy as described above. No metabolically active contralateral hemithoracic or extrathoracic metastatic disease. Assessment/Plan Bryson Teixeira Jr. is a 59 y.o. male light smoker who quit 45 years ago. He is now found to have multiple lung nodules scattered bilaterally. PET showed only the ROSENDO nodule is FDG avid. Tissue sampling showed the PET avid lesion is squamous cell lung and it was thought, SBRT will provide local control when it was diagnosed 02/2024. If the disease is truly localized with no kate involvement like shown dueing sampling, it will provide long time disease stability. The cancer was staged at [id number].Other small nodules will be watched. And his case was also discussed in the multiD conference. However, recent PET on 10/15/24 showed PD with involvement of N2 node on the left. Chemoradiation was started on 11/17/24. 1. Cancer management : Early stage lung cancer- [id number] 02/2024. -patient was longstanding history of smoking and found to have multiple lung nodules but PET/CT showed that left upper lobe nodule is FDG avid, for this reason he received SBRT to the left upper lobe nodule. - CT on 06/18/24 stable lesion and stable nodules - He was found to have disease progression on recent PET which demonstrated FDG uptake in the treated ROSENDO, mediastinal involvement as N2 disease. PET during surveillance post radiation on 10/15/24 showing N2 node postive on the left. - MRI of the head was found to have no evidence of mets but noted artifact and unlikely related to disease per radiologist report. - Chemo education and consent signed for combined weekly CT (PACLItaxel / CARBOplatin + XRT Every 7Days) to start concurrently with IMRT (D1= 11/17/24). - He will be due for next repeat imaging (efficacy) in 3M once completes APPLIQUE CUTTER unless early concerns for progression and/or as clinically indicated then. - on tox check on 12/08, he is tolerating the treatment well with no signficant issues except some mild pain when he swallows - CT c/a/p performed on 01/10/25 shows evidence of disease progression with increase in the ROSENDO pulmonary nodule now measuring 19 x 11 mm and a new L upper renal pole mass. MRI brain shows no evidenceof brain mets. - Will proceed with CARIS testing but tissue block QNS, will go with [facility] - Discussed possibilities of clinical trial versus single agent immunotherapy given PDL1 20% versusimmuno + carboplatin AUC6 + taxol 175mg/m2 every 3 weeks. - Consented for Pembro + Carbo + Taxol with plans to start next week. - Will collect Hgb A1C prior to initiation of chemotherapy given elevated BG of 209. - RTC prior to C2. 2. Dysphagia - complains of six-month history of dysphagia, patient initially had weight loss associated with lung cancer or/dysphagia currently the weight is been stable -he had barium swallow which showed concern of hiatal hernia which needs to be confirmed with endoscopy. - with a history of smoking and lung cancer, CT neck and soft tissue was ordered and done on 07/08 which did not show any evidence of disease elsewhere. - discuss the importance of getting endoscopy to rule out any esophageal lesions or stricture - patient would get referral to GI from primary care. 3. Molecular studies - Will proceed with CARIS testing as patient has progressed to stage IV metastatic disease. 4. Clinical Trials - Will keep in mind in the future - Not eligible for TORY-008 or [id number] at present. 5. At Risk of Infection related to chemotherapy/cancer - Afebrile. Monitor for infections, strict precautions discussed. - Clinically recovering from his recent sinus infection on treatment with likely related abnormal hemogram findings (afebrile leukocytosis, reactive thrombocytosis and anemia-- both mild). Can continue best supportive care for sinus infection (completing prolonged course of empiric PO abxs for another 1 week, rx'd by PCP). 6. Supportive Care Weight loss- Print Line Feeder consult today (weight trend is DOWN). Will start low dose olanzapine. Anticipated NV related to chemotherapy- PRN antiemetics per protocol-- asymptomatic currently. Tobacco cessation counseling -- receptive, encouraged. TTOP. 7. Hyperglycemia - Elevated BG on multiple lab draws. Will collect HgbA1C prior to first round of chemo/immuno. If elevated will refer to primary care for management. Discussed assessment and plan with attending, Dr. Zhang. Addendum per attending as listed above. Carolin Churchill DO Hematology Oncology Fellow PGY6 [phone] I, Maninder Zhang MD, saw and evaluated the patient. I discussed the case with the medical student and resident/fellow and agree with the findings and plan as documented. I personally performed the Exam and Medical Decision Making. * Progress Notes - Zacarias Stern PharmD - 01/12/2025 10:20 AM EDT Pharmacy Hematology/Oncology Patient Education Note I counseled the patient on their immunotherapy regimen, which was scheduled to start 01/19/25. The immunotherapy agents that this patient is scheduled to receive include: Pembrolizumab (in additional to carboplatin/paclitaxel which he has received in the past). I provided the patient with a written explanation of the drugs contained in the regimen and their expected side effects, toxicities, and adverse reactions, such as rash, diarrhea, pneumonitis, hepatitis, nephritis, fatigue and nausea/vomiting. I provided verbal explanation of the same material and provided methods for self-monitoring. I answered all questions that the patient and/or caregiver had. The patient and/or caregiver demonstrated understanding of the material, and wished to proceed with the treatment. Zacarias Stern PharmD, [facility] Clinical Oncology Pharmacist * Progress Notes - Zacarias Stern PharmD - 01/12/2025 10:20 AM EDT Pharmacy Hematology/Oncology Treatment Note Bryson Teixeira Jr. is a 59 y.o. male with Cancer Staging Malignant neoplasm of upper lobe of left lung (CMS/HCC) Staging form: Lung, AJCC 8th Edition - Clinical: cT1, cN0, cM0 - Signed by Lars Dalton MD on 03/10/2024 Squamous cell carcinoma of left lung Staging form: Lung, AJCC 8th Edition - Clinical stage from 10/27/2024: Stage IIIA (ycT1c, ycN2, cM0) - Signed by Maninder Zhang MD on 10/28/2024 mNSCLC (Squamous, TPS 20%) Study Patient: no Treatment Plan reviewed for Carboplatin/Paclitaxel/Pembrolizumab every 21 days [x] Follow-Up Clinical Review for Cycle 1 [] Follow-Up Clinical Review for Continuous Oral Therapy Interval History: 01/12/25: Mr. Teixeira completed 6 cycles of Carbo/Taxol/XRT, and scans unfortunately show progressionwith new renal pole hypodensity. He was consented and counseled on q3w Carbo/Taxol/Pembro and will begin treatment on 01/19. Normanis is unable to be obtained due to not having enough tissue, so will drawliquid biopsy with guardant prior to treatment next week. He is experiencing poor appetite and was started on olanzapine 2.5 mg nightly. Labs to be re-evaluated by pharmacy satellite prior to treatment on 01/19/25. Today's Wt: Wt Readings from Last 1 Encounters: 01/12/25 65.8 kg (145 lb 1 oz) Dosing Wt: 65.8 kg Dosing Ht: 175.3 cm DosingBSA: 1.86 m2 Recent Labs: Lab Results Component Value Date WBC 12.60 (H) 01/10/2025 HGB 9.2 (L) 01/10/2025 HCT 29.5 (L) 01/10/2025 MCV 92 01/10/2025 PLT 299 01/10/2025 Lab Results Component Value Date GLUCOSE 209 (H) 01/10/2025 CALCIUM 9.9 01/10/2025 NA 136 01/10/2025 K 3.9 01/10/2025 CO2 24 01/10/2025 CL 99 01/10/2025 BUN 8 01/10/2025 CREATININE 0.71 01/10/2025 Lab Results Component Value Date ALT 34 01/10/2025 AST 21 01/10/2025 ALKPHOS 141 (H) 01/10/2025 BILITOT 0.2 01/10/2025 Lab Results Component Value Date NEUTROABS 11.37 (H) 01/10/2025 Lab Results Component Value Date MG 2.2 12/06/2024 No results found for: TSH Lab Results Component Value Date URINEPRO Negative 04/03/2023 Vitals: Visit Vitals BP 115/77 (BP Location: Right arm) Pulse 104 Temp 36.9 ??C (98.4 ??F) (Oral) Resp 16 Other Relevant Monitoring: for carboplatin: ActBW (BMI <25): 65.8 kg SCr: Results from last 7 days Lab Units 01/10/25 1353 CREATININE mg/dL 0.71 eCrCl: 101.7 ml/min Treatment/Therapy Plan: Carboplatin AUC 6 IV Day 1 Paclitaxel 180 mg/m2 (324 mg) IV Day 1 Pembrolizumab 200 mg (flat dose) IV Day 1 Every 21 Days [x] Taxol dose reduced 10% for predicted tolerability Current Treatment Plan History: Carbo/Taxol/Pembro Cycle 1: 01/19/25 Prior Treatment History: SBRT Complete 04/14/24 Carbo/Taxol/XRT Cycle 1: 11/17/34 Cycle 2: 11/24/24 Cycle 3: 12/01/24 Cycle 4: 12/08/24 Cycle 5: 12/15/24 Cycle 6: 12/22/24 Plan: Labs to be re-evaluated by pharmacy satellite prior to treatment on 01/19. Patient will return to clinic in 4 weeks prior to cycle 2. Will follow-up at that time. Pharmacist Attestation: Zacarias Stern PharmD, [facility] Clinical Oncology Pharmacist documented in this encounter Plan of Treatment Upcoming Encounters Date Type Department Care Team (Late st Contact Info) Description 03/23/2025 8:30 AM EDT Appointment [facility] [address] [place] [address] 03/23/2025 10:30 AM EDT Clinical Support [facility] [address] [facility] [place] [address] 03/23/2025 11:00 AM EDT Office Visit [facility] [address] [facility] [place] [address] Maninder Zhang MD [address] [place] [address] 03/23/2025 12:00 PM EDT Appointment [facility] [address] [place] [address] documented as of this encounter Results * Magnesium (02/09/2025 11:22 AM EDT) Magnesium, Plasma 2.0 1.9 - 2.4 mg/dL 02/09/2025 12:10 PM EDT [facility] Blood Venous blood specimen / Unknown Venipuncture / Unknown 02/09/2025 11:22 AM EDT 02/09/2025 11:40 AM EDT us Maninder Zhang MD LAB BLOOD ORDERABLES Final Resul t [facility] [address] [place] [address] * (ABNORMAL) Comprehensive metabolic panel (02/09/2025 11:22 AM EDT) Glucose, Plasma 132(H) 74 - 99 mg/dL 02/09/2025 12:10 PM EDT [facility] BUN, Plasma 10 8 - 23 mg/dL 02/09/2025 12:10 PM EDT [facility] Creatinine, Plasma 0.81 0.70 - 1.20 mg/dL 02/09/2025 12:10 PM EDT [facility] BUN/Creatinine Ratio 12 02/09/2025 12:10 PM EDT [facility] Sodium, Plasma 133(L) 136 - 145 mmol/L 02/09/2025 12:10 PM EDT [facility] Potassium, Plasma 4.2 3.6 - 4.9 mmol/L 02/09/2025 12:10 PM EDT [facility] Chloride, Plasma 98 97 - 107 mmol/L 02/09/2025 12:10 PM EDT [facility] CO2, Plasma 22 22 - 29 mmol/L 02/09/2025 12:10 PM EDT [facility] Anion Gap 13 6 - 16 mmol/L 02/09/2025 12:10 PM EDT [facility] Total Calcium, Plasma 10.3(H) 8.9 - 10.2 mg/dL 02/09/2025 12:10 PM EDT [facility] Total Protein 7.6 6.3 - 7.9 g/dL 02/09/2025 12:10 PM EDT [facility] Albumin, Plasma 3.4(L) 3.5 - 5.2 g/dL 02/09/2025 12:10 PM EDT [facility] AST, Plasma 21 10 - 50 U/L 02/09/2025 12:10 PM EDT [facility] ALT, Plasma 30 10 - 50 U/L 02/09/2025 12:10 PM EDT [facility] Alkaline Phosphatase, Plasma 197(H) 40 - 115 U/L 02/09/2025 12:10 PM EDT [facility] Total Bilirubin, Plasma 0.4 0.2 - 1.1 mg/dL 02/09/2025 12:10 PM EDT [facility] eGFRcr 100.3 mL/min/1.7 3m*2 02/09/2025 12:10 PM EDT [facility] Comment:Reported eGFRcr in m L/min/1.73m2 is based the CKD-EPI 2020 equation that does not use a race coefficient. Blood Venous blood specimen / Unknown Venipuncture / Unknown 02/09/2025 11:22 AM EDT 02/09/2025 11:40 AM EDT us Maninder Zhang MD LAB BLOOD ORDERABLES Final Resul t [facility] [address] [place] [address] * (ABNORMAL) CBC and differential (02/09/2025 11:22 AM EDT) WBC Count 15.60(H) 3.70 - 10.30 10*3/uL LAB HEMATOLOGY METHOD 02/09/2025 11:48 AM EDT [facility] RBC Count 2.97(L) 4.60 - 6.10 10*6/uL LAB HEMATOLOGY METHOD 02/09/2025 11:48 AM EDT [facility] HGB 8.7(L) 13.7 - 17.5 g/dL LAB HEMATOLOGY METHOD 02/09/2025 11:48 AM EDT [facility] HCT 28.2(L) 40.0 - 51.0 % LAB HEMATOLOGY METHOD 02/09/2025 11:48 AM EDT [facility] Platelet Count 212 155 - 369 10*3/uL LAB HEMATOLOGY METHOD 02/09/2025 11:48 AM EDT [facility] MCV 95 79 - 98 fL LAB HEMATOLOGY METHOD 02/09/2025 11:48 AM EDT [facility] MCH 29.3 26.0 - 32.0 pg LAB HEMATOLOGY METHOD 02/09/2025 11:48 AM EDT [facility] MCHC 30.9 30.7 - 35.5 g/dL LAB HEMATOLOGY METHOD 02/09/2025 11:48 AM EDT [facility] RDW 18.6(H) 11.5 - 14.5 % LAB HEMATOLOGY METHOD 02/09/2025 11:48 AM EDT [facility] MPV 9.8 8.8 - 12.5 fL LAB HEMATOLOGY METHOD 02/09/2025 11:48 AM EDT [facility] nRBC 0.0 <=0.0 per 100 WBCs LAB HEMATOLOGY METHOD 02/09/2025 11:48 AM EDT [facility] Differential Type Automated LAB HEMATOLOGY METHOD 02/09/2025 11:48 AM EDT [facility] Neutrophils % 84 % LAB HEMATOLOGY METHOD 02/09/2025 11:48 AM EDT [facility] Lymphocytes % 7 % LAB HEMATOLOGY METHOD 02/09/2025 11:48 AM EDT [facility] Monocytes % 8 % LAB HEMATOLOGY METHOD 02/09/2025 11:48 AM EDT [facility] Eosinophils % 0 % LAB HEMATOLOGY METHOD 02/09/2025 11:48 AM EDT [facility] Basophils % 0 % LAB HEMATOLOGY METHOD 02/09/2025 11:48 AM EDT [facility] Immature Granulocytes % 1 % LAB HEMATOLOGY METHOD 02/09/2025 11:48 AM EDT [facility] Neutrophils Absolute 13.02(H) 1.60 - 6.10 10*3/uL LAB HEMATOLOGY METHOD 02/09/2025 11:48 AM EDT [facility] Lymphocytes Absolute 1.15(L) 1.20 - 3.90 10*3/uL LAB HEMATOLOGY METHOD 02/09/2025 11:48 AM EDT [facility] Monocytes Absolute 1.19(H) 0.30 - 0.90 10*3/uL LAB HEMATOLOGY METHOD 02/09/2025 11:48 AM EDT [facility] Eosinophils Absolute 0.01 0.00 - 0.50 10*3/uL LAB HEMATOLOGY METHOD 02/09/2025 11:48 AM EDT [facility] Basophils Absolute 0.05 0.00 - 0.10 10*3/uL LAB HEMATOLOGY METHOD 02/09/2025 11:48 AM EDT [facility] Immature Granulocytes Absolute 0.18(H) 0.00 - 0.06 10*3/uL LAB HEMATOLOGY METHOD 02/09/2025 11:48 AM EDT [facility] Blood Venous blood specimen / Unknown Venipuncture / Unknown 02/09/2025 11:22 AM EDT 02/09/2025 11:34 AM EDT Narrative [facility] - 02/09/2025 11:48 AM EDT Therapeutic decision making should be based on absolute values, rather than percentages. us Maninder Zhang MD LAB BLOOD ORDERABLES Final Resul t [facility] [address] [place] [address] * TSH reflex FT4 (01/19/2025 8:58 AM EDT) Thyroid Stimulating Hormone, Plasma 3.63 0.40 - 4.20 uIU/mL 01/19/2025 10:06 AM EDT [facility] Blood Venous blood specimen / Unknown Venipuncture / Unknown 01/19/2025 8:58 AM EDT 01/19/2025 9:31 AM EDT Maninder Zhang MD LAB BLOOD ORDERABLES Final Resul t [facility] [address] [place] [address] * Magnesium (01/19/2025 8:58 AM EDT) Magnesium, Plasma 2.1 1.9 - 2.4 mg/dL 01/19/2025 10:06 AM EDT [facility] Blood Venous blood specimen / Unknown Venipuncture / Unknown 01/19/2025 8:58 AM EDT 01/19/2025 9:31 AM EDT us Maninder Zhang MD LAB BLOOD ORDERABLES Final Resul t Performing Organization Address [facility]/ZIP Co de Phone Number [facility] [address] [place] [address] * (ABNORMAL) Comprehensive metabolic panel (01/19/2025 8:58 AM EDT) Glucose, Plasma 101(H) 74 - 99 mg/dL 01/19/2025 10:06 AM EDT [facility] BUN, Plasma 13 8 - 23 mg/dL 01/19/2025 10:06 AM EDT [facility] Creatinine, Plasma 0.99 0.70 - 1.20 mg/dL 01/19/2025 10:06 AM EDT [facility] BUN/Creatinine Ratio 13 01/19/2025 10:06 AM EDT [facility] Sodium, Plasma 135(L) 136 - 145 mmol/L 01/19/2025 10:06 AM EDT [facility] Potassium, Plasma 4.3 3.6 - 4.9 mmol/L 01/19/2025 10:06 AM EDT [facility] Chloride, Plasma 99 97 - 107 mmol/L 01/19/2025 10:06 AM EDT [facility] CO2, Plasma 26 22 - 29 mmol/L 01/19/2025 10:06 AM EDT [facility] Anion Gap 10 6 - 16 mmol/L 01/19/2025 10:06 AM EDT [facility] Total Calcium, Plasma 9.7 8.9 - 10.2 mg/dL 01/19/2025 10:06 AM EDT [facility] Total Protein 7.1 6.3 - 7.9 g/dL 01/19/2025 10:06 AM EDT [facility] Albumin, Plasma 3.4(L) 3.5 - 5.2 g/dL 01/19/2025 10:06 AM EDT [facility] AST, Plasma 32 10 - 50 U/L 01/19/2025 10:06 AM EDT [facility] ALT, Plasma 50 10 - 50 U/L 01/19/2025 10:06 AM EDT [facility] Alkaline Phosphatase, Plasma 173(H) 40 - 115 U/L 01/19/2025 10:06 AM EDT [facility] Total Bilirubin, Plasma <0.2(L) 0.2 - 1.1 mg/dL 01/19/2025 10:06 AM EDT [facility] eGFRcr 86.7 mL/min/1.7 3m*2 01/19/2025 10:06 AM EDT [facility] Comment:Reported eGFRcr in m L/min/1.73m2 is based the CKD-EPI 2020 equation that does not use a race coefficient. Blood Venous blood specimen / Unknown Venipuncture / Unknown 01/19/2025 8:58 AM EDT 01/19/2025 9:31 AM EDT us Maninder Zhang MD LAB BLOOD ORDERABLES Final Resul t [facility] [address] [place] [address] * (ABNORMAL) CBC and differential (01/19/2025 8:58 AM EDT) WBC Count 21.91(H) 3.70 - 10.30 10*3/uL LAB HEMATOLOGY METHOD 01/19/2025 9:50 AM EDT [facility] RBC Count 3.10(L) 4.60 - 6.10 10*6/uL LAB HEMATOLOGY METHOD 01/19/2025 9:50 AM EDT [facility] HGB 8.9(L) 13.7 - 17.5 g/dL LAB HEMATOLOGY METHOD 01/19/2025 9:50 AM EDT [facility] HCT 29.7(L) 40.0 - 51.0 % LAB HEMATOLOGY METHOD 01/19/2025 9:50 AM EDT [facility] Platelet Count 449(H) 155 - 369 10*3/uL LAB HEMATOLOGY METHOD 01/19/2025 9:50 AM EDT [facility] MCV 96 79 - 98 fL LAB HEMATOLOGY METHOD 01/19/2025 9:50 AM EDT [facility] MCH 28.7 26.0 - 32.0 pg LAB HEMATOLOGY METHOD 01/19/2025 9:50 AM EDT [facility] MCHC 30.0(L) 30.7 - 35.5 g/dL LAB HEMATOLOGY METHOD 01/19/2025 9:50 AM EDT [facility] RDW 19.9(H) 11.5 - 14.5 % LAB HEMATOLOGY METHOD 01/19/2025 9:50 AM EDT [facility] MPV 8.5(L) 8.8 - 12.5 fL LAB HEMATOLOGY METHOD 01/19/2025 9:50 AM EDT [facility] nRBC 0.0 <=0.0 per 100 WBCs LAB HEMATOLOGY METHOD 01/19/2025 9:50 AM EDT [facility] Differential Type Automated LAB HEMATOLOGY METHOD 01/19/2025 9:50 AM EDT [facility] Neutrophils % 90 % LAB HEMATOLOGY METHOD 01/19/2025 9:50 AM EDT [facility] Lymphocytes % 3 % LAB HEMATOLOGY METHOD 01/19/2025 9:50 AM EDT [facility] Monocytes % 6 % LAB HEMATOLOGY METHOD 01/19/2025 9:50 AM EDT [facility] Eosinophils % 0 % LAB HEMATOLOGY METHOD 01/19/2025 9:50 AM EDT [facility] Basophils % 0 % LAB HEMATOLOGY METHOD 01/19/2025 9:50 AM EDT [facility] Immature Granulocytes % 1 % LAB HEMATOLOGY METHOD 01/19/2025 9:50 AM EDT [facility] Neutrophils Absolute 19.43(H) 1.60 - 6.10 10*3/uL LAB HEMATOLOGY METHOD 01/19/2025 9:50 AM EDT [facility] Lymphocytes Absolute 0.70(L) 1.20 - 3.90 10*3/uL LAB HEMATOLOGY METHOD 01/19/2025 9:50 AM EDT [facility] Monocytes Absolute 1.33(H) 0.30 - 0.90 10*3/uL LAB HEMATOLOGY METHOD 01/19/2025 9:50 AM EDT [facility] Eosinophils Absolute 0.08 0.00 - 0.50 10*3/uL LAB HEMATOLOGY METHOD 01/19/2025 9:50 AM EDT [facility] Basophils Absolute 0.07 0.00 - 0.10 10*3/uL LAB HEMATOLOGY METHOD 01/19/2025 9:50 AM EDT [facility] Immature Granulocytes Absolute 0.30(H) 0.00 - 0.06 10*3/uL LAB HEMATOLOGY METHOD 01/19/2025 9:50 AM EDT [facility] Blood Venous blood specimen / Unknown Venipuncture / Unknown 01/19/2025 8:58 AM EDT 01/19/2025 9:35 AM EDT Narrative [facility] - 01/19/2025 9:50 AM EDT Therapeutic decision making should be based on absolute values, rather than percentages. us Maninder Zhang MD LAB BLOOD ORDERABLES Final Resul t [facility] [address] [place] [address] * (ABNORMAL) Hemoglobin A1c (01/19/2025 8:58 AM EDT) Hemoglobin A1c 6.6(H) <5.7 % 01/19/2025 10:31 AM EDT [facility] Blood Venous blood specimen / Unknown Venipuncture / Unknown 01/19/2025 8:58 AM EDT 01/19/2025 9:35 AM EDT Narrative [facility] - 01/19/2025 10:31 AM EDT HA1C Interpretive Data: Diagnosis of Diabetes: Diabetic > or = 6.5% Pre-diabetic 5.7 to 6.4% Non-diabetic < or = 5.6% Glycemic Targets for Type I and Type II Diabetics: Non- Adults <7.0% Adults <6.0% Children and Adolescents <7.5% Source: [place] [employer]. Standards of medical care in diabetes,2017. Diabetes Care.2017:40 (suppl 1):S1-S135. Maninder Zhang MD LAB BLOOD ORDERABLES Final Resul t [facility] [address] [place] [address] documented in this encounter Visit Diagnoses Diagnosis Malignant neoplasm of upper lobe of left lung (CMS/HCC)- Primary Squamous cell carcinoma of left lung Elevated glucose level Encounter for antineoplastic chemotherapy documented in this encounter Additional Health Concerns Assessment Noted Time A fall risk assessment has been complete d for the patient 01/12/2025 10:35 AM EDT A Body Mass Index follow-up plan has been documented for the patient 12/15/2024 4:25 PM EDT documented as of this encounter Care Teams Traveling Representative Relationship Specialty Start Date End Date Constantine Stiles APRN [address] [place] [address] PCP - General 01/21/23 Farhat Gómez MD [address] [facility] [address] [place] [phone] Consulting Physician Radiation Oncology 10/27/24 documented as of this encounter
--- OUTSIDE RECORDS SUMMARY | 2025-01-19 09:00 | XMS_ITS | Encounter Summary ---
Author Organization [facility] Address [address] [place] [address] Care Team Providers Care Burlap Spreader Name Role Phone Constantine Stiles Dejon CH Primary Care Provider [phone] Farhat Gómez MD Unavailable Reason for Visit * Reason Comments Labs Peripheral stick, ri ght armGuardant draw Encounter Details Date Type Department Care Team (Latest Contact Info) Description 01/19/2025 9:00 AM EDT Clinical Support [facility] [address] [place] [phone] Malignant neoplasm of upper lobe of left [...] on file documented as of this encounter Miscellaneous Notes * Clinician Note - Kristine Lewis - 01/19/2025 9:00 AM EDT Peripheral stick, right arm Guardant draw documented in this encounter Plan of Treatment Upcoming Encounters Date Type Department Care Team (Late st Contact Info) Description 03/23/2025 8:30 AM EDT Appointment [facility] [address] [place] [address] 03/23/2025 10:30 AM EDT Clinical Support Pav [facility] [address] [facility], [address]nd [place] [address] 03/23/2025 11:00 AM EDT Office Visit Pav [facility] [address] [facility], [address]nd [place] [phone] Maninder Zhang MD [address] [facility] [address] [place] [address] 03/23/2025 12:00 PM EDT Appointment [facility] In[facility] [address] [place] [address] documented as of this encounter Procedures Procedure Name Priority Date/Time Associated Diagnosis Comments TSH REFLEX FT4 Routine 01/19/2025 8:58 AM EDT Malignant neoplasm of upper lobe of left lung (CMS/HCC) CBC WITH AUTO DIFFERENTIAL Routine 01/19/2025 8:58 AM EDT Malignant neoplasm of upper lobe of left lung (CMS/HCC) MAGNESIUM, PLASMA STAT 01/19/2025 8:5 8 AM EDT Malignant neoplasm of upper lobe of left lung (CMS/HCC) HEMOGLOBIN A1C Routine 01/19/2025 8:58 AM EDT Malignant neoplasm of upper lobe of left lung (CMS/HCC) COMPREHENSIVE METABOLIC PANEL, PLASMA Routine 01/19/2025 8:58 AM EDT Malignant neoplasm of upper lobe of left lung (CMS/HCC) documented in this encounter Results * TSH reflex FT4 (01/19/2025 8:58 AM EDT) Thyroid Stimulating Hormone, Plasma 3.63 0.40 - 4.20 uIU/mL 01/19/2025 10:06 AM EDT [facility] Blood Venous blood specimen / Unknown Venipuncture / Unknown 01/19/2025 8:58 AM EDT 01/19/2025 9:31 AM EDT Maninder Zhang MD LAB BLOOD ORDERABLES Final Resul t Performing Organization Address City/[facility]/ZIP Co de Phone Number [facility] [address] [place] [address] * Magnesium (01/19/2025 8:58 AM EDT) Magnesium, Plasma 2.1 1.9 - 2.4 mg/dL 01/19/2025 10:06 AM EDT [facility] Blood Venous blood specimen / Unknown Venipuncture / Unknown 01/19/2025 8:58 AM EDT 01/19/2025 9:31 AM EDT Maninder Zhang MD LAB BLOOD ORDERABLES Final Resul t Performing Organization Address City/[facility]/ZIP Co de Phone Number [facility] [address] [place] [address] * (ABNORMAL) Comprehensive metabolic panel (01/19/2025 8:58 AM EDT) Glucose, Plasma 101(H) 74 - 99 mg/dL 01/19/2025 10:06 AM EDT [facility] BUN, Plasma 13 8 - 23 mg/dL 01/19/2025 10:06 AM EDT [facility] Creatinine, Plasma 0.99 0.70 - 1.20 mg/dL 01/19/2025 10:06 AM EDT [facility] BUN/Creatinine Ratio 13 01/19/2025 10:06 AM EDT [facility] Sodium, Plasma 135(L) 136 - 145 mmol/L 01/19/2025 10:06 AM EDT [facility] Potassium, Plasma 4.3 3.6 - 4.9 mmol/L 01/19/2025 10:06 AM EDT [facility] Chloride, Plasma 99 97 - 107 mmol/L 01/19/2025 10:06 AM EDT [facility] CO2, Plasma 26 22 - 29 mmol/L 01/19/2025 10:06 AM EDT [facility] Anion Gap 10 6 - 16 mmol/L 01/19/2025 10:06 AM EDT [facility] Total Calcium, Plasma 9.7 8.9 - 10.2 mg/dL 01/19/2025 10:06 AM EDT [facility] Total Protein 7.1 6.3 - 7.9 g/dL 01/19/2025 10:06 AM EDT [facility] Albumin, Plasma 3.4(L) 3.5 - 5.2 g/dL 01/19/2025 10:06 AM EDT [facility] AST, Plasma 32 10 - 50 U/L 01/19/2025 10:06 AM EDT [facility] ALT, Plasma 50 10 - 50 U/L 01/19/2025 10:06 AM EDT [facility] Alkaline Phosphatase, Plasma 173(H) 40 - 115 U/L 01/19/2025 10:06 AM EDT [facility] Total Bilirubin, Plasma <0.2(L) 0.2 - 1.1 mg/dL 01/19/2025 10:06 AM EDT [facility] eGFRcr 86.7 mL/min/1.7 3m*2 01/19/2025 10:06 AM EDT [facility] Comment:Reported eGFRcr in m L/min/1.73m2 is based the CKD-EPI 2020 equation that does not use a race coefficient. Blood Venous blood specimen / Unknown Venipuncture / Unknown 01/19/2025 8:58 AM EDT 01/19/2025 9:31 AM EDT us Maninder Zhang MD LAB BLOOD ORDERABLES Final Resul t [facility] [address] [place] [address] * (ABNORMAL) CBC and differential (01/19/2025 8:58 AM EDT) WBC Count 21.91(H) 3.70 - 10.30 10*3/uL LAB HEMATOLOGY METHOD 01/19/2025 9:50 AM EDT [facility] RBC Count 3.10(L) 4.60 - 6.10 10*6/uL LAB HEMATOLOGY METHOD 01/19/2025 9:50 AM EDT [facility] HGB 8.9(L) 13.7 - 17.5 g/dL LAB HEMATOLOGY METHOD 01/19/2025 9:50 AM EDT [facility] HCT 29.7(L) 40.0 - 51.0 % LAB HEMATOLOGY METHOD 01/19/2025 9:50 AM EDT [facility] Platelet Count 449(H) 155 - 369 10*3/uL LAB HEMATOLOGY METHOD 01/19/2025 9:50 AM EDT [facility] MCV 96 79 - 98 fL LAB HEMATOLOGY METHOD 01/19/2025 9:50 AM EDT [facility] MCH 28.7 26.0 - 32.0 pg LAB HEMATOLOGY METHOD 01/19/2025 9:50 AM EDT [facility] MCHC 30.0(L) 30.7 - 35.5 g/dL LAB HEMATOLOGY METHOD 01/19/2025 9:50 AM EDT [facility] RDW 19.9(H) 11.5 - 14.5 % LAB HEMATOLOGY METHOD 01/19/2025 9:50 AM EDT [facility] MPV 8.5(L) 8.8 - 12.5 fL LAB HEMATOLOGY METHOD 01/19/2025 9:50 AM EDT [facility] nRBC 0.0 <=0.0 per 100 WBCs LAB HEMATOLOGY METHOD 01/19/2025 9:50 AM EDT [facility] Differential Type Automated LAB HEMATOLOGY METHOD 01/19/2025 9:50 AM EDT [facility] Neutrophils % 90 % LAB HEMATOLOGY METHOD 01/19/2025 9:50 AM EDT [facility] Lymphocytes % 3 % LAB HEMATOLOGY METHOD 01/19/2025 9:50 AM EDT [facility] Monocytes % 6 % LAB HEMATOLOGY METHOD 01/19/2025 9:50 AM EDT [facility] Eosinophils % 0 % LAB HEMATOLOGY METHOD 01/19/2025 9:50 AM EDT [facility] Basophils % 0 % LAB HEMATOLOGY METHOD 01/19/2025 9:50 AM EDT [facility] Immature Granulocytes % 1 % LAB HEMATOLOGY METHOD 01/19/2025 9:50 AM EDT [facility] Neutrophils Absolute 19.43(H) 1.60 - 6.10 10*3/uL LAB HEMATOLOGY METHOD 01/19/2025 9:50 AM EDT [facility] Lymphocytes Absolute 0.70(L) 1.20 - 3.90 10*3/uL LAB HEMATOLOGY METHOD 01/19/2025 9:50 AM EDT [facility] Monocytes Absolute 1.33(H) 0.30 - 0.90 10*3/uL LAB HEMATOLOGY METHOD 01/19/2025 9:50 AM EDT [facility] Eosinophils Absolute 0.08 0.00 - 0.50 10*3/uL LAB HEMATOLOGY METHOD 01/19/2025 9:50 AM EDT [facility] Basophils Absolute 0.07 0.00 - 0.10 10*3/uL LAB HEMATOLOGY METHOD 01/19/2025 9:50 AM EDT [facility] Immature Granulocytes Absolute 0.30(H) 0.00 - 0.06 10*3/uL LAB HEMATOLOGY METHOD 01/19/2025 9:50 AM EDT [facility] Blood Venous blood specimen / Unknown Venipuncture / Unknown 01/19/2025 8:58 AM EDT 01/19/2025 9:35 AM EDT Narrative [facility] - 01/19/2025 9:50 AM EDT Therapeutic decision making should be based on absolute values, rather than percentages. us Maninder Zhang MD LAB BLOOD ORDERABLES Final Resul t [facility] [address] [place] [address] * (ABNORMAL) Hemoglobin A1c (01/19/2025 8:58 AM EDT) Hemoglobin A1c 6.6(H) <5.7 % 01/19/2025 10:31 AM EDT [facility] Blood Venous blood specimen / Unknown Venipuncture / Unknown 01/19/2025 8:58 AM EDT 01/19/2025 9:35 AM EDT Narrative [facility] - 01/19/2025 10:31 AM EDT HA1C Interpretive Data: Diagnosis of Diabetes: Diabetic > or = 6.5% Pre-diabetic 5.7 to 6.4% Non-diabetic < or = 5.6% Glycemic Targets for Type I and Type II Diabetics: Non- Adults <7.0% Adults <6.0% Children and Adolescents <7.5% Source: [place] [employer]. Standards of medical care in diabetes,2017. Diabetes Care.2017:40 (suppl 1):S1-S135. us Maninder Zhang MD LAB BLOOD ORDERABLES Final Resul t [facility] [address] [place] [address] documented in this encounter Visit Diagnoses Diagnosis Malignant neoplasm of upper lobe of left lung (CMS/HCC) documented in this encounter Additional Health Concerns Assessment Noted Time A fall risk assessment has been complete d for the patient 01/19/2025 9:13 AM EDT A Body Mass Index follow-up plan has been documented for the patient 01/19/2025 4:11 PM EDT documented as of this encounter Care Teams Burlap Spreader Relationship Specialty Start Date End Date Constantine Stiles APRN [address] [place] [phone] PCP - General 01/21/23 Farhat Gómez MD [address] [address] Consulting Physician Radiation Oncology 10/27/24 documented as of this encounter
--- OUTSIDE RECORDS SUMMARY | 2025-01-19 09:11 | XMS_ITS | Encounter Summary ---
Author Organization [facility] Address [address] [place] [address] Care Team Providers Care Parquet Floor Layer Name Role Phone Linsey Constantine Ashford APRN Primary Care Provider [phone] Farhat Gómez MD Unavailable Reason for Visit * Episode Based Medications (Routine) - Authorized Specialty Diagnoses / Procedures Referred By Contac t Referred To Contact Diagnoses Malignant neoplasm of upper lobe of left lung (CMS/HCC) Procedures Pembrolizumab / PACLitaxel / CARBOplatin Every 21 Days Maninder Zhang MD [address] [address] Phone: tel: fax: Maninder Zhang MD [address] [address] Phone: tel: fax: Referral ID Status Reason Start Date Expiration Date V isits Requested Visits Authorized [id number] Authorized 01/19/2025 07/21/2026 1 7 Encounter Details Date Type Department Care Team (Latest Contact Info) Description 01/19/2025 9:11 AM EDT - 01/19/2025 11:59 PM EDT Hospital Encounter [facility] [address] [place] [address] Malignant neoplasm of upper lobe of left [...] 1 tablet under the tongue daily. 01/09/2023 dexamethasone (Decadron) 4 MG tabletIndication s:Malignant neoplasm of upper lobe of left lung (CMS/HCC) Take 2 tablets by mouth daily. Take for 3 days starting the day after chemo. 24 tablet 01/12/2025 docusate sodium (Colace) 100 MG capsule Take [...] nicotine polacrilex (Nicorette) 2 MG gum 07/01/2024 OLANZapine (ZyPREXA) 5 MG tablet Take 0.5 [...] nausea or vomiting. 30 tablet 5 01/12/2025 senna-docusate sodium (Senokot-S) 8.6-50 MG tablet Take [...] understanding of the material. -- Jacky Steele, [place] Candidate 2025 Cosigned by Oli Knowles PharmD at 01/19/2025 11:30 AM EDT Associated attestation - Oli Knowles PharmD - 01/19/2025 11:30 AM EDT I have reviewed patient and agree with pharmacy informatics manager documented in this encounter Plan of Treatment Upcoming Encounters Date Type Department Care Team (Late st Contact Info) Description 03/23/2025 8:30 AM EDT Appointment [facility] [address] [place] [address] 03/23/2025 10:30 AM EDT Clinical Support [facility] [address] [facility], [address]nd [place] [address] 03/23/2025 11:00 AM EDT Office Visit Pav [facility] [address] [facility], [address] [place] [address] Maninder Zhang MD [address] [facility] [address]ann[address] [facility] [address] [place] [address] 03/23/2025 12:00 PM EDT Appointment [facility] [address] [place] [address] documented as of this encounter Visit Diagnoses [...] documented as of this encounter Care Teams Parquet Floor Layer Relationship Specialty Start Date End Date Constantine Stiles APRN [address] [place] [address] PCP - General 01/21/23 Farhat Gómez MD [address] [place] [phone] Consulting Physician Radiation Oncology 10/27/24 documented as of this encounter
--- OUTSIDE RECORDS SUMMARY | 2025-02-09 11:15 | XMS_ITS | Encounter Summary ---
Author Organization Healthcare Address [address] [place] [address] Care Team Providers Care Functional Support Analyst Name Role Phone Constantine Stiles Dejon CH Primary Care Provider [phone] Farhat Gómez MD Unavailable Reason for Visit * Reason Comments Labs Encounter Details Date Type Department Care Team ([facility] st Contact Info) Description 02/09/2025 11:15 AM EDT Clinical Support Pav [facility] Respiratory [address] [facility] [place] [phone] Social History Tobacco Use Types Packs/Day Years [...] No 025 11:17 AM EDT Rito Rader 2. Non-Specific Active Suici ester Thoughts (Past 1 Month) No 02/09/2025 11:17 AM EDT Lawrence Rader 6. Suicidal Behavior (Lifetime) No 11:17 AM EDT Rito Rader documented as of this encounter Plan of Treatment Upcoming Encounters Date Type Department Care Team (Late st Contact Info) Description 03/23/2025 8:30 AM EDT Appointment [facility] [address] [place] [address] 03/23/2025 10:30 AM EDT Clinical Support Pav [facility] Respiratory [address] [place] [address] 03/23/2025 11:00 AM EDT Office Visit Pav [facility] Res[facility] [address] [facility] [place] [phone] Maninder Zhang MD [address] [place] [phone] 03/23/2025 12:00 PM EDT Appointment [facility] [address] [place] [phone] documented as of this encounter Visit Diagnoses Not on filedocumented in this encounter Additional Health Concerns Assessment Noted Time A fall risk assessment has been complete d for the patient 02/09/2025 1:33 PM EDT A Body Mass Index follow-up plan has been documented for the patient 01/19/2025 4:11 PM EDT documented as of this encounter Care Teams Functional Support Analyst Relationship Specialty Start Date End Date Constantine Stiles, MECHANICAL ENGINEERING PROFESSOR [address] [place] [phone] PCP - General 01/21/23 Farhat Gómez MD [address] [place] [phone] Consulting Physician Radiation Oncology 10/27/24 documented as of this encounter
--- OUTSIDE RECORDS SUMMARY | 2025-02-09 11:30 | XMS_ITS | Encounter Summary ---
Author Organization [facility] Address [address] [place] [address] Care Team Providers Care Senior Nurse Manager Name Role Phone Constantine Stiles APRN Primary Care Provider [phone] Farhat Gómez MD Unavailable Reason for Visit * Reason Comments Follow-up * Episode Based Medications (Routine) - Authorized Specialty Diagnoses / Procedures Referred By Contac t Referred To Contact Diagnoses Malignant neoplasm of upper lobe of left lung (CMS/HCC) Procedures Pembrolizumab / PACLitaxel / CARBOplatin Every 21 Days Maninder Zhang MD [address] [facility] Shannan Dubois [address] [address] Phone: tel: fax: Maninder Zhang MD [address] [facility] Shannan Dubois [address] [address] Phone: tel: fax: Referral ID Status Reason Start Date Expiration Date V isits Requested Visits Authorized [id number] Authorized 01/19/2025 07/21/2026 1 7 Encounter Details Date Type Department Care Team ([facility] Contact Info) Description 02/09/2025 11:30 AM EDT Office Visit [facility]ck [facility] Respiratory [address] [facility], [address]nd [place] [address] Elsa Judge APRN [address] [facility] [address] [place] [address] Malignant neoplasm of upper lobe of left [...] (Lifetime) No 11:17 AM EDT Rito Rader R documented as of this encounter Miscellaneous Notes * Progress Notes - Elsa Judge APRN - 02/09/2025 1:00 PM EDT Patient Information Patient Name: Bryson Teixeira Jr. Date of : 1965 REFERRING PHYSICIAN: Maninder Zhang MD [address] [place] [address] [address] Encounter Date: 02/09/25 Patient Care Team: Constantine [...] FDA-approved test, with diseaseprogression on or after deering-containing chemotherapy. Patients with EGFR or ALK genomic tumor aberrations should have disease progression on FDA-approved therapy for these aberrations prior to rec eiving Pembrolizumab. PD-L1 IHC serves as a complementary diagnostic in regards to other PD-L1/EC-5-kvtrkidlbighwgvhk (Nivolumab, Atezolizumab, Durvalumab, etc). Expression level: >Negative for PD-L1 expression (TPS less than 1%) >Positive for PD-L1 expression (TPS 1-49%) >Positive for high PD-L1 expression (TPS greater than or equal to 50%) *PD-L1 IHC 22C3 pharmDx is a FDA-approved digital solution architect diagnostic for pembrolizumab performed on [employer] Stainer using formalin-fixed, paraffin imbedded (FFPE) tissue [...] developed by and are performed at the [facility], [address] [place] [address]. All tests reported here, except those addressing [...] disease stability. The cancer was staged at [id number].Other small nodules will be watched. And his case was also discussed in the multiD conference. However, recent PET on 10/15/24 showed PD with involvement of N2 node on the left. Chemoradiation was started on 11/17/24. 1. Cancer management : Early stage lung cancer- [id number] 02/2024. -patient was longstanding history of smoking [...] repeat imaging (efficacy) in 3M once completes DETAIL SERGEANT unless early concerns for progression and/or as [...] future - Not eligible for TORY-008 or ADH036 at present. 5. At Risk of Infection [...] by PCP). 6. Supportive Care Weight loss- Legal Instructor consult today (weight trend is DOWN). Will [...] Currently Social Drivers of Health Received from [employer] Food Insecurity Received from [employer] Family and Community Support [5] No Known [...] at that time. Pharmacist Attestation: Chrissy Wells, SantinoD, [facility] Clinical Oncology Pharmacist documented in this encounter Plan of Treatment Upcoming Encounters Date Type Department Care Team (Late st Contact Info) Description 03/23/2025 8:30 AM EDT Appointment [facility] [address] [place] [address] 03/23/2025 10:30 AM EDT Clinical Support [facility] Res[facility] [address] [facility], [address] [place] [address] 03/23/2025 11:00 AM EDT Office Visit [facility] Neck [facility] Respiratory [address] [facility], [address] [place] [address] Maninder Zhang MD [address] [facility] [address] [place] [address] 03/23/2025 12:00 PM EDT Appointment [facility] [address] [place] [address] documented as of this encounter Procedures Procedure Name Priority Date/Time Associated Diagnosis Comments FINE NEEDLE ASPIRATION - CYTOLOGY Routine 02/09/2025 12:17 PM EDT Malignant neoplasm of upper lobe of left lung (CMS/HCC) documented in this encounter Results * Fine needle aspiration (02/09/2025 12:17 PM EDT) Case Report Cytology Case: [id number] Authorizing Provider: Maninder Zhang MD Collected: 02/09/2025 1217 Ordering Location: [facility] Received: 02/09/2025 1217 Respiratory Pathologist: Margie Garcia MD Specimen: Other, Fine Needle Aspiration (Specify Site), LEFT CHEST NODULE, SUPERFICIAL FINE NEEDLE ASPIRATION 02/11/2025 9:54 AM EDT [facility] Final Diagnosis CHEST NODULE, LEFT, SUPERFICIAL FINE NEEDLE ASPIRATION: - SUSPICIOUS FOR MALIGNANCY. SEE COMMENT. 02/11/2025 9:54 AM EDT [facility] at 0953 EDT Comment There are several atypical and degenerated squamous cells present, which are suspicious for squamous cell carcinoma. However, in the setting of a cystic lesion (with approximately 4 ml of straw-colored fluid obtained), the epithelial atypia could be reactive/degener ative, rather than neoplastic. 02/11/2025 9:54 AM EDT [facility] Immediate Evaluation FNA performed and/or attended [...] on the report. 02/11/2025 9:54 AM EDT [facility] Clinical History squamous cell lung cancer 02/11/2025 9:54 AM EDT [facility] Procedure Type Superficial 9:54 AM EDT [facility] Size/Descripti on of Lesion Left Chest 02/11/2025 9:54 AM EDT [facility] Cancer History Yes 02/11/2025 9:54 AM EDT [facility] Gross Description A. LEFT CHEST NODULE, SUPERFICIAL FINE NEEDLE ASPIRATION 5 ml's tinted needle rinse fluid processed as Thinprep for complete evaluation of sample. Received 3 diff quick slides and 3 pap slides. 02/11/2025 9:54 AM EDT [facility] Note: A resident was involved in the service. I attest I examined the relevant preparations for the specimens and confirmed the diagnosis or interpretation. 02/11/2025 9:54 AM EDT [facility] Clinical Information C34.12 - Malignant neoplasm of upper lobe of left lung (CMS/HCC) [ICD-10-CM] 02/11/2025 9:54 AM EDT [facility] Fine Needle Aspirate Fine needle biopsy / Unknown Non-blood Collection / Unknown 02/09/2025 12:17 PM EDT 02/09/2025 12:17 PM EDT us Maninder Zhang MD LAB CYTOLOGY ORDERABLES Final Re sult [facility] [address] [place] [address] documented in this encounter Visit Diagnoses Diagnosis [...] documented as of this encounter Care Teams Senior Nurse Manager Relationship Specialty Start Date End Date Constantine Stiles APRN [address] [place] [address] PCP - General 01/21/23 Farhat Gómez MD [address] [address] Consulting Physician Radiation Oncology 10/27/24 documented as of this encounter
--- OUTSIDE RECORDS SUMMARY | 2025-02-09 12:30 | XMS_ITS | Encounter Summary ---
Author Organization [facility] Address [address] [place] [address] Care Team Providers Care Program Services Planner Name Role Phone Linsey Constantine Ashford APRN Primary Care Provider [phone] Farhat Gómez MD Unavailable Reason for Visit * Episode Based Medications (Routine) - Authorized Specialty Diagnoses / Procedures Referred By Contac t Referred To Contact Diagnoses Malignant neoplasm of upper lobe of left lung (CMS/HCC) Procedures Pembrolizumab / PACLitaxel / CARBOplatin Every 21 Days Maninder Zhang MD [address] Shannan Dubois [address] [address] Phone: tel: fax: Maninder Zhang MD [address] [address] Phone: tel: fax: Referral ID Status Reason Start Date Expiration Date V isits Requested Visits Authorized [id number] Authorized 01/19/2025 07/21/2026 1 7 Encounter Details Date Type Department Care Team (Latest Contact Info) Description 02/09/2025 12:30 PM EDT - 02/09/2025 11:59 PM EDT Hospital Encounter [facility] [address] [place] [address] Malignant neoplasm of upper lobe of left [...] Sign Reading Time Taken Comments Blood Pressure 96/61 02/09/2025 5:25 PM EDT Pulse 81 02/09/2025 5:25 PM EDT Temperature 36.4 C (97.6 F) 02/09/2025 1:31 PM EDT Respiratory Rate 18 02/09/2025 1:31 PM EDT Oxygen Saturation 96% 02/09/2025 1:31 PM EDT Inhaled Oxygen Concentration - - Weight 62.5 kg (137 lb 12.6 oz) 02/09/2025 1:31 PM EDT Height 175.3 cm (5' 9 ) 02/09/2025 1:31 PM EDT Body Mass Index 20.35 02/09/2025 1:31 PM EDT documented in this encounter Functional Status [...] No 02/09/2025 11:17 AM EDT Lawrence Rader oenix R 6. Suicidal Behavior (Lifetime) No 11:17 AM EDT Rito Rader R documented as of this encounter Medications at Time of Discharge albuterol 108 (90 Base) MCG/ACT inhaler if needed. 02/10/2024 buprenorphine-na loxone (Suboxone) 8-[address] 1 tablet under the tongue daily. 01/09/2023 cyclobenzaprine (Flexeril) 10 MG tablet TAKE ONE TABLET BY MOUTH 2 TIMES A DAY NEEDED FOR MUSCLE SPASMS 30 tablet 1 02/01/2025 dexamethasone (Decadron) 4 MG tabletIndication s:Malignant neoplasm [...] capsule (1.5 mg) by mouth daily. 03/09/2024 documented as of this encounter Plan of Treatment Upcoming Encounters Date Type Department Care Team ([facility] st Contact Info) Description 03/23/2025 8:30 AM EDT Appointment [facility] [address] [place] [address] 03/23/2025 10:30 AM EDT Clinical Support Pav [facility] 800 [facility], [address] [place] [phone] 03/23/2025 11:00 AM EDT Office Visit Pav [facility] 800 [facility], [address] [place] [phone] Maninder Zhang MD 800 [facility] Shannan Dubois [facility] [address] [place] [address] 03/23/2025 12:00 PM EDT Appointment [facility] [address] [place] [address] documented as of this encounter Procedures Procedure Name Priority Date/Time Associated Diagnosis Comments CBC WITH AUTO DIFFERENTIAL Routine 02/09/2025 11:22 AM EDT Malignant neoplasm of upper lobe of left lung (CMS/HCC) MAGNESIUM, PLASMA STAT 02/09/2025 11: 22 AM EDT Malignant neoplasm of upper lobe of left lung (CMS/HCC) COMPREHENSIVE METABOLIC PANEL, PLASMA Routine 02/09/2025 11:22 AM EDT Malignant neoplasm of upper lobe of left lung (CMS/HCC) documented in this encounter Results * (ABNORMAL) CBC and differential (02/09/2025 11:22 AM EDT) WBC Count 15.60(H) 3.70 - 10.30 10*3/uL LAB HEMATOLOGY METHOD 02/09/2025 11:48 AM EDT [facility] RBC Count 2.97(L) 4.60 - 6.10 10*6/uL LAB HEMATOLOGY METHOD 02/09/2025 11:48 AM EDT [facility] HGB 8.7(L) 13.7 - 17.5 g/dL LAB HEMATOLOGY METHOD 02/09/2025 11:48 AM EDT [facility] HCT 28.2(L) 40.0 - 51.0 % LAB HEMATOLOGY METHOD 02/09/2025 11:48 AM EDT [facility] Platelet Count 212 155 - 369 10*3/uL LAB HEMATOLOGY METHOD 02/09/2025 11:48 AM EDT [facility] MCV 95 79 - 98 fL LAB HEMATOLOGY METHOD 02/09/2025 11:48 AM EDT [facility] MCH 29.3 26.0 - 32.0 pg LAB HEMATOLOGY METHOD 02/09/2025 11:48 AM EDT [facility] MCHC 30.9 30.7 - 35.5 g/dL LAB HEMATOLOGY METHOD 02/09/2025 11:48 AM EDT [facility] RDW 18.6(H) 11.5 - 14.5 % LAB HEMATOLOGY METHOD 02/09/2025 11:48 AM EDT [facility] MPV 9.8 8.8 - 12.5 fL LAB HEMATOLOGY METHOD 02/09/2025 11:48 AM EDT [facility] nRBC 0.0 <=0.0 per 100 WBCs LAB HEMATOLOGY METHOD 02/09/2025 11:48 AM EDT [facility] Differential Type Automated LAB HEMATOLOGY METHOD 02/09/2025 11:48 AM EDT [facility] Neutrophils % 84 % LAB HEMATOLOGY METHOD 02/09/2025 11:48 AM EDT [facility] Lymphocytes % 7 % LAB HEMATOLOGY METHOD 02/09/2025 11:48 AM EDT [facility] Monocytes % 8 % LAB HEMATOLOGY METHOD 02/09/2025 11:48 AM EDT [facility] Eosinophils % 0 % LAB HEMATOLOGY METHOD 02/09/2025 11:48 AM EDT [facility] Basophils % 0 % LAB HEMATOLOGY METHOD 02/09/2025 11:48 AM EDT [facility] Immature Granulocytes % 1 % LAB HEMATOLOGY METHOD 02/09/2025 11:48 AM EDT [facility] Neutrophils Absolute 13.02(H) 1.60 - 6.10 10*3/uL LAB HEMATOLOGY METHOD 02/09/2025 11:48 AM EDT [facility] Lymphocytes Absolute 1.15(L) 1.20 - 3.90 10*3/uL LAB HEMATOLOGY METHOD 02/09/2025 11:48 AM EDT [facility] Monocytes Absolute 1.19(H) 0.30 - 0.90 10*3/uL LAB HEMATOLOGY METHOD 02/09/2025 11:48 AM EDT [facility] Eosinophils Absolute 0.01 0.00 - 0.50 10*3/uL LAB HEMATOLOGY METHOD 02/09/2025 11:48 AM EDT [facility] Basophils Absolute 0.05 0.00 - 0.10 10*3/uL LAB HEMATOLOGY METHOD 02/09/2025 11:48 AM EDT [facility] Immature Granulocytes Absolute 0.18(H) 0.00 - 0.06 10*3/uL LAB HEMATOLOGY METHOD 02/09/2025 11:48 AM EDT [facility] Blood Venous blood specimen / Unknown Venipuncture / Unknown 02/09/2025 11:22 AM EDT 02/09/2025 11:34 AM EDT Narrative [facility] - 02/09/2025 11:48 AM EDT Therapeutic decision making should be based on absolute values, rather than percentages. us Maninder Zhang MD LAB BLOOD ORDERABLES Final Resul t [facility] [address] [place] [address] * (ABNORMAL) Comprehensive metabolic panel (02/09/2025 11:22 AM EDT) [facility] Glucose, Plasma 132(H) 74 - 99 mg/dL 02/09/2025 12:10 PM EDT [facility] BUN, Plasma 10 8 - 23 mg/dL 02/09/2025 12:10 PM EDT [facility] Creatinine, Plasma 0.81 0.70 - 1.20 mg/dL 02/09/2025 12:10 PM EDT [facility] BUN/Creatinine Ratio 12 02/09/2025 12:10 PM EDT [facility] Sodium, Plasma 133(L) 136 - 145 mmol/L 02/09/2025 12:10 PM EDT [facility] Potassium, Plasma 4.2 3.6 - 4.9 mmol/L 02/09/2025 12:10 PM EDT [facility] Chloride, Plasma 98 97 - 107 mmol/L 02/09/2025 12:10 PM EDT [facility] CO2, Plasma 22 22 - 29 mmol/L 02/09/2025 12:10 PM EDT [facility] Anion Gap 13 6 - 16 mmol/L 02/09/2025 12:10 PM EDT [facility] Total Calcium, Plasma 10.3(H) 8.9 - 10.2 mg/dL 02/09/2025 12:10 PM EDT [facility] Total Protein 7.6 6.3 - 7.9 g/dL 02/09/2025 12:10 PM EDT [facility] Albumin, Plasma 3.4(L) 3.5 - 5.2 g/dL 02/09/2025 12:10 PM EDT [facility] AST, Plasma 21 10 - 50 U/L 02/09/2025 12:10 PM EDT [facility] ALT, Plasma 30 10 - 50 U/L 02/09/2025 12:10 PM EDT [facility] Alkaline Phosphatase, Plasma 197(H) 40 - 115 U/L 02/09/2025 12:10 PM EDT [facility] Total Bilirubin, Plasma 0.4 0.2 - 1.1 mg/dL 02/09/2025 12:10 PM EDT [facility] eGFRcr 100.3 mL/min/1.7 3m*2 02/09/2025 12:10 PM EDT [facility] Comment:Reported eGFRcr in m L/min/1.73m2 is based the CKD-EPI 2020 equation that does not use a race coefficient. Blood Venous blood specimen / Unknown Venipuncture / Unknown 02/09/2025 11:22 AM EDT 02/09/2025 11:40 AM EDT Maninder Zhang MD LAB BLOOD ORDERABLES Final Resul t Performing Organization Address City/[facility]/ZIP Co de Phone Number [facility] [address] [place] [phone] * Magnesium (02/09/2025 11:22 AM EDT) Magnesium, Plasma 2.0 1.9 - 2.4 mg/dL 02/09/2025 12:10 PM EDT [facility] Blood Venous blood specimen / Unknown Venipuncture / Unknown 02/09/2025 11:22 AM EDT 02/09/2025 11:40 AM EDT Maninder Zhang MD LAB BLOOD ORDERABLES Final Resul t Performing Organization Address [facility] Co de Phone Number [facility] [address] [place] [address] documented in this encounter Visit Diagnoses Diagnosis Malignant neoplasm of upper lobe of left lung (CMS/HCC)- Primary documented in this encounter Administered Medications Inactive Administered Medications - up to 3 most recent administrations Medication Order MAR Action Action Date Dose Rate Site CARBOplatin (Paraplatin) 680 mg in sodium chloride 0.9 % 250 mL IVPB 680 mg (rounded from 684.6 mg, Target AUC = 6), Intravenous, at 726 mL/hr, Administer over 30 Minutes, Once, Hazardous Drug-Tier 1 Precautions. Dispose in BLACK Hazardous Waste Container. Chemotherapy: refer to [id number]., On Fri02/09/25 at 1730, For 1 doseIndications:Malignant neoplasm of upper lobe of left lung (CMS/HCC) New Bag 02/09/2025 5:29 PM EDT 680 mg 726 mL/hr dexamethasone (Decadron) tablet 12 mg 12 mg, Oral, Once, 1 dose, On Fri02/09/25 at 1400, RoutineIndications:Malignant neoplasm of upper lobe of left lung (CMS/HCC) Given 02/09/2025 1:41 PM EDT 12 mg diphenhydrAMINE (Benadryl) injection 25 mg 25 mg, Intravenous, Once, 1 dose, On Fri02/09/25 at 1400, RoutineIndications:Malignant neoplasm of upper lobe of left lung (CMS/HCC) Given 02/09/2025 1:44 PM EDT 25 mg famotidine PF (Pepcid) injection 20 mg 20 mg, Intravenous, Once, 1 dose, On Fri02/09/25 at 1400, RoutineIndications:Malignant neoplasm of upper lobe of left lung (CMS/HCC) Given 02/09/2025 1:45 PM EDT 20 mg fosaprepitant (Emend) 150 mg in sodium chloride 255 mL IVPB 150 mg, Intravenous, Once, 1 dose, On Fri02/09/25 at 1400, Administer over 30 Minutes, RoutineIndications:Malignant neoplasm of upper lobe of left lung (CMS/HCC) New Bag 02/09/2025 1:46 PM EDT 150 mg 560 mL/hr ondansetron ODT (Zofran-ODT) disintegrating tablet 16 mg 16 mg, Oral, Once, 1 dose, On Fri02/09/25 at 1400, RoutineIndications:Malignant neoplasm of upper lobe of left lung (CMS/HCC) Given 02/09/2025 1:41 PM EDT 16 mg PACLitaxel (Taxol) 324 mg in sodium chloride 0.9 % 500 mL IVPB 324 mg (180 mg/m2 1.8 m2 Treatment Plan BSA from Recorded weight), Intravenous, at 206.3 mL/hr, Administer over 3 Hours, Once, Hazardous Drug-Tier 1 Precautions. Dispose in BLACK Hazardous Waste Container. Use 0.2 micron filter. Chemotherapy: refer to [id number]., On Fri02/09/25 at 1430, For 1 doseIndications:Malignant neoplasm of upper lobe of left lung (CMS/HCC) New Bag 02/09/2025 2:22 PM EDT 324 mg 206.3 mL/hr pembrolizumab (Keytruda) 200 mg in sodium chloride 0.9% 100 mL IVPB 200 mg, Intravenous, at 276 mL/hr, Administer over 30 Minutes, Once, Filter Required. Use 0.2 micron filter., On Fri02/09/25 at 1400, For 1 dose, In 100 mL NSIndications:Malignant neoplasm of upper lobe of left lung (CMS/HCC) New Bag 02/09/2025 6:01 PM EDT 200 mg 276 mL/hr sodium chloride 0.9 % bolus 1,000 mL 1,000 mL, Intravenous, Once, 1 dose, On Fri02/09/25 at 1400, Administer over 60 Minutes, RoutineIndications:Malignant neoplasm of upper lobe of left lung (CMS/HCC) New Bag 02/09/2025 1:44 PM EDT 1,000 mL 1000 mL/hr documented in this encounter Additional Health Concerns Assessment Noted Time A fall risk assessment has been complete d for the patient 02/09/2025 1:33 PM EDT A Body Mass Index follow-up plan has been documented for the patient 01/19/2025 4:11 PM EDT documented as of this encounter Care Teams Program Services Planner Relationship Specialty Start Date End Date Constantine Stiles APRN [address] [place] [address] PCP - General 01/21/23 Farhat Gómez MD [address] [place] [phone] Consulting Physician Radiation Oncology 10/27/24 documented as of this encounter
--- OUTSIDE RECORDS SUMMARY | 2025-03-02 08:45 | XMS_ITS | Encounter Summary ---
Author Organization [facility] Address [address] [place] [address] Care Team Providers Care Gumming Machine Operator Name Role Phone Constantine Stiles Dejon CH Primary Care Provider [phone] Farhat Gómez MD Unavailable Reason for Visit * Reason Comments Labs Peripheral stick, le ft arm Encounter Details Date Type Department Care Team (Latest Contact Info) Description 03/02/2025 8:45 AM EDT Clinical Support Pav [facility] [address] [place] [phone] Malignant neoplasm of upper lobe of left [...] [facility] Contact Info) Description 03/23/2025 8:30 AM EDT Appointment [facility] [address] [place] [address] 03/23/2025 10:30 AM EDT Clinical Support Pav [facility] [address] [facility], [address] [place] [address] 03/23/2025 11:00 AM EDT Office Visit Pav [facility] [address] [facility], [address] [place] [phone] Maninder Zhang MD [address] [facility] Shannan Dubois [facility] [address] [place] [address] 03/23/2025 12:00 PM EDT Appointment P[facility] H Infusion [address] [place] [address] documented as of this encounter Procedures Procedure [...] - 4.20 uIU/mL 03/02/2025 9:[address] [facility] Blood Venous blood specimen / Unknown Venipuncture / Unknown 03/02/2025 9:07 AM EDT 03/02/2025 9:20 AM EDT us Maninder Zhang MD LAB BLOOD ORDERABLES Final Resul t Performing Organization Address City/[facility]/ZIP Co de Phone Number [facility] [address] [place] [address] * Magnesium (03/02/2025 9:07 AM EDT) Magnesium, Plasma 1.9 1.9 - 2.4 mg/dL 03/02/2025 9:[address] [facility] Blood Venous blood specimen / Unknown Venipuncture / Unknown 03/02/2025 9:07 AM EDT 03/02/2025 9:20 AM EDT us Maninder Zhang MD LAB BLOOD ORDERABLES Final Resul t [facility] [address] [place] [address] * (ABNORMAL) Comprehensive metabolic panel (03/02/2025 9:07 AM EDT) Glucose, Plasma 232(H) 74 - 99 mg/dL 03/02/2025 9:[address] [facility] BUN, Plasma 7(L) 8 - 23 mg/dL 03/02/2025 9:[address] [facility] Creatinine, Plasma 0.76 0.70 - 1.20 mg/dL 03/02/2025 9:[address] [facility] BUN/Creatinine Ratio 9 03/02/2025 9:[address] [facility] Sodium, Plasma 137 136 - 145 mmol/L 03/02/2025 9:[address] [facility] Potassium, Plasma 4.6 3.6 - 4.9 mmol/L 03/02/2025 9:[address] [facility] Chloride, Plasma 100 97 - 107 mmol/L 03/02/2025 9:[address] [facility] CO2, Plasma 23 22 - 29 mmol/L 03/02/2025 9:[address] [facility] Anion Gap 14 6 - 16 mmol/L 03/02/2025 9:[address] [facility] Total Calcium, Plasma 9.8 8.9 - 10.2 mg/dL 03/02/2025 9:[address] [facility] Total Protein 7.4 6.3 - 7.9 g/dL 03/02/2025 9:[address] [facility] Albumin, Plasma 3.3(L) 3.5 - 5.2 g/dL 03/02/2025 9:[address] [facility] AST, Plasma 25 10 - 50 U/L 03/02/2025 9:[address] [facility] ALT, Plasma 43 10 - 50 U/L 03/02/2025 9:[address] [facility] Alkaline Phosphatase, Plasma 205(H) 40 - 115 U/L 03/02/2025 9:[address] [facility] Total Bilirubin, Plasma 0.5 0.2 - 1.1 mg/dL 03/02/2025 9:[address] [facility] eGFRcr 102.3 mL/min/1.7 3m*2 03/02/2025 9:55 AM EDT [facility] Comment:Reported eGFRcr in m L/min/1.73m2 is based the CKD-EPI 2020 equation that does not use a race coefficient. Blood Venous blood specimen / Unknown Venipuncture / Unknown 03/02/2025 9:07 AM EDT 03/02/2025 9:20 AM EDT us Maninder Zhang MD LAB BLOOD ORDERABLES Final Resul t [facility] [address] [place] [address] * (ABNORMAL) CBC and differential (03/02/2025 9:07 AM EDT) WBC Count 19.59(H) 3.70 - 10.30 10*3/uL LAB HEMATOLOGY METHOD 03/02/2025 11:[address] [facility] RBC Count 2.43(L) 4.60 - 6.10 10*6/uL LAB HEMATOLOGY METHOD 03/02/2025 11:[address] [facility] HGB 7.1(L) 13.7 - 17.5 g/dL LAB HEMATOLOGY METHOD 03/02/2025 11:[address] [facility] HCT 24.5(L) 40.0 - 51.0 % LAB HEMATOLOGY METHOD 03/02/2025 11:[address] [facility] Platelet Count 244 155 - 369 10*3/uL LAB HEMATOLOGY METHOD 03/02/2025 11:[address] [facility] MCV 101(H) 79 - 98 fL LAB HEMATOLOGY METHOD 03/02/2025 11:[address] [facility] MCH 29.2 26.0 - 32.0 pg LAB HEMATOLOGY METHOD 03/02/2025 11:[address] [facility] MCHC 29.0(L) 30.7 - 35.5 g/dL LAB HEMATOLOGY METHOD 03/02/2025 11:[address] [facility] RDW 17.0(H) 11.5 - 14.5 % LAB HEMATOLOGY METHOD 03/02/2025 11:[address] [facility] MPV 10.2 8.8 - 12.5 fL LAB HEMATOLOGY METHOD 03/02/2025 11:[address] [facility] nRBC 0.0 <=0.0 per 100 WBCs LAB HEMATOLOGY METHOD 03/02/2025 11:[address] [facility] Differential Type Automated LAB HEMATOLOGY METHOD 03/02/2025 11:[address] [facility] Neutrophils % 89 % LAB HEMATOLOGY METHOD 03/02/2025 11:[address] [facility] Lymphocytes % 3 % LAB HEMATOLOGY METHOD 03/02/2025 11:[address] [facility] Monocytes % 5 % LAB HEMATOLOGY METHOD 03/02/2025 11:[address] [facility] Eosinophils % 0 % LAB HEMATOLOGY METHOD 03/02/2025 11:[address] [facility] Basophils % 0 % LAB HEMATOLOGY METHOD 03/02/2025 11:[address] [facility] Immature Granulocytes % 3 % LAB HEMATOLOGY METHOD 03/02/2025 11:[address] [facility] Neutrophils Absolute 17.37(H) 1.60 - 6.10 10*3/uL LAB HEMATOLOGY METHOD 03/02/2025 11:[address] [facility] Lymphocytes Absolute 0.52(L) 1.20 - 3.90 10*3/uL LAB HEMATOLOGY METHOD 03/02/2025 11:[address] [facility] Monocytes Absolute 0.99(H) 0.30 - 0.90 10*3/uL LAB HEMATOLOGY METHOD 03/02/2025 11:[address] [facility] Eosinophils Absolute 0.00 0.00 - 0.50 10*3/uL LAB HEMATOLOGY METHOD 03/02/2025 11:[address] [facility] Basophils Absolute 0.04 0.00 - 0.10 10*3/uL LAB HEMATOLOGY METHOD 03/02/2025 11:[address] [facility] Immature Granulocytes Absolute 0.67(H) 0.00 - 0.06 10*3/uL LAB HEMATOLOGY METHOD 03/02/2025 11:[address] [facility] Blood Venous blood specimen / Unknown Venipuncture / Unknown 03/02/2025 9:07 AM EDT 03/02/2025 9:21 AM EDT [facility] - 03/02/2025 11:36 AM EDT Therapeutic decision making should be based on absolute values, rather than percentages. us Maninder Zhang MD LAB BLOOD ORDERABLES Final Resul t [facility] [address] [place] [address] documented in this encounter Visit Diagnoses Diagnosis [...] documented as of this encounter Care Teams Gumming Machine Operator Relationship Specialty Start Date End Date Constantine Stiles APRN [address] [place] [address] PCP - General 01/21/23 Farhat Gómez MD [id number] [place] [address] Consulting Physician Radiation Oncology 10/27/24 documented as of this encounter
--- OUTSIDE RECORDS SUMMARY | 2025-03-02 09:00 | XMS_ITS | Encounter Summary ---
Author Organization [facility] Address [address] [place] [address] Care Team Providers Care Tailercpa Name Role Phone DarrylConstantine rosales Dejon CH Primary Care Provider [phone] Farhat Gómez MD Unavailable Reason for Visit * Reason Comments Follow-up * Episode Based Medications (Routine) - Authorized Specialty Diagnoses / Procedures Referred By Contac t Referred To Contact Diagnoses Malignant neoplasm of upper lobe of left lung (CMS/HCC) Procedures Pembrolizumab / PACLitaxel / CARBOplatin Every 21 Days Maninder Zhang MD [address] [facility] [address] [place] [address] Phone: tel: fax: Maninder Zhang MD [address] [facility] [address] [place] [address] Phone: tel: fax: Referral ID Status Reason Start Date Expiration Date V isits Requested Visits Authorized [id number] Authorized 01/19/2025 07/21/2026 1 7 Encounter Details Date Type Department Care Team (Yoanna irwin Contact Info) Description 03/02/2025 9:00 AM EDT Office Visit Pav [facility] Head[facility] Neck [facility] Respiratory [address] [place] [address] Maninder Zhang MD [address] [facility] [address] [place] [address] Malignant neoplasm of upper lobe of left lung (CMS/HCC) (Primary Dx); Encounter for antineoplastic chemotherapy; Antineoplastic chemotherapy induced anemia Social History Tobacco Use Types Packs/Day Years [...] Sign Reading Time Taken Comments Blood Pressure 92/62 03/02/2025 9:00 AM EDT Pulse 80 03/02/2025 9:00 AM EDT Temperature 36.7 C (98 F) 03/02/2025 9:00 AM EDT Respiratory Rate 18 03/02/2025 9:00 AM EDT Oxygen Saturation 96% 03/02/2025 9:00 AM EDT 2L O2 Inhaled Oxygen Concentration - - Weight 59 kg (130 lb 1.1 oz) 03/02/2025 9:00 AM EDT Height 175.3 cm (5' 9.02 ) 03/02/2025 9:00 AM ED T Body Mass Index 19.2 03/02/2025 9:00 AM EDT documented in this encounter Functional Status * AUDIT-C Score [...] encounter Miscellaneous Notes * Progress Notes - Misael Mc MD - 03/02/2025 9:00 AM EDT Patient Information Patient Name: Bryson Teixeira Jr. Date of : 1965 REFERRING PHYSICIAN: Maninder Zhang MD [address] [place] [phone] Encounter Date: 03/02/2025 Patient Care Team: Constantine Stiles APRN as PCP - General Farhat Gómez MD as Consulting Physician (Radiation Oncology) Chief [...] is indicated. The patient pres ents today (03/02/2025) for follow up evaluation after starting IMRT [...] 250 mL IVPB, 590 mg, Intravenous, Once, 2 of 4 cycles Administration: 590 mg (01/19/2025), 680 mg (02/09/2025) PACLitaxel (Taxol) 324 mg in sodium chloride 0.9 % 500 mL IVPB, 180 mg/m2 = 324 mg (90 % of original dose 200 mg/m2), Intravenous, Once, 2 of 4 cycles Dose modification: 180 mg/m2 (original dose 200 mg/m2, Cycle 1) Administration: 324 mg (01/19/2025), 324 mg (02/09/2025) pembrolizumab (Keytruda) 200 mg in sodium chloride 0.9% 100 mL IVPB, 200 mg, Intravenous, Once, 2 of 4 cycles Administration: 200 mg (01/19/2025), 200 mg (02/09/2025) fosaprepitant (Emend) 150 mg in sodium chloride 255 mL IVPB, 150 mg, Intravenous, Once, 2 of 4 cycles Administration: 150 mg (01/19/2025), 150 mg (02/09/2025) Squamous cell carcinoma of left lung 03/10/2024 Initial Diagnosis Squamous cell carcinoma of left lung (CMS/HCC) 03/10/2024 - 10/27/2024 Radiation Therapy The patient saw Farhat Gómez MD for radiation treatment. This is the current list of radiation treatment: SBRT: Left Lung (Resolved) Treatment Period Fraction Dose Fractions Total Dose Course C1 04/14/2024-04/14/2024 (days elapsed: 0) Plans Planned LeftLung SBRT 04/14/2024-04/14/2024 3,000 cGy 1 / 1 3,000 cGy Reference Points Delivered Left Lung [...] 10/28/2024 Interval History Mr Teixeira is here accompanied by his for follow up with labs prior to next cycle of chemotherapy (PACLItaxel / CARBOplatin + Pembro ) now C3. He reports feeling okay today. He notes some ongoingshortness of breath and fatigue that is slightly worse the past couple of weeks. He has not required increased amounts of oxygen compared to his baseline (2L/NC). He notes that the subcutaneous knot on his left chest reformed after the FNA. He denies fevers, chills, chest pain, n/v/d, abdominal pain. Past Medical, Surgical, Family and Social History [...] date: 1980 Quit date: 02/14/2024 Years since quittin.0 Passive exposure: Past Smokeless tobacco: Never Vaping [...] MUSCLE SPASMS, Disp: 30 tablet, Rfl: 1 docusate sodium (Colace) 100 MG capsule, Take 1 capsule by mouth daily., Disp: , Rfl: gabapentin (Neurontin) 800 MG tablet, Take 1 tablet (800 mg) by mouth 2 (two) times a day., Disp: ,Rfl: ibuprofen 200 MG tablet, Take 2 tablets [...] or vomiting., Disp: 30 tablet, Rfl: 5 Stiolto Respimat 2.5-2.5 MCG/ACT aerosol solution inhaler, 1 (one) time each day., Disp: , Rfl: Vraylar 1.5 MG capsule, Take 1 capsule (1.5 mg) by mouth daily., Disp: , Rfl: dexamethasone (Decadron) 4 MG tablet, Take 2 tablets by mouth daily. Take for 3 days starting the day after chemo. (Patient not taking: Reported on 03/02/2025), Disp: 24 tablet, Rfl: 0 gabapentin (Neurontin) 600 MG tablet, Take 1 tablet (600 mg) by mouth 2 (two) times a day. (Patientnot taking: Reported on 03/02/2025), Disp: , Rfl: guaiFENesin (MUCINEX PO), Take by mouth 2 (two) times a day if needed. (Patient not taking: Reported on 03/02/2025), Disp: , Rfl: OLANZapine (ZyPREXA) 5 MG tablet, Take 0.5 tablets by mouth nightly. (Patient not taking: Reported on 03/02/2025), Disp: 15 tablet, Rfl: 0 senna-docusate sodium (Senokot-S) 8.6-50 MG tablet, Take 1 tablet by mouth 2 (two) times a day as needed for constipation. (Patient not taking: Reported on 03/02/2025), Disp: 60 tablet, Rfl: 2 tamsulosin (Flomax) 0.4 MG 24 hr capsule, Take by mouth daily. (Patient not taking: Reported on 03/02/2025), Disp: , Rfl: Subjective Review of Systems: 14 ROS were all negative except found in HPI Objective Performance Status ECOG1 Visit Vitals BP 92/62 (BP Location: Left arm) Pulse 80 Temp 36.7 ??C (98 ??F) (Oral) Resp 18 BMI: Estimated body mass index is 19.2 kg/m?? as calculated from the following: Height as of this encounter: 1.753 m (5' 9.02 ). Weight as of this encounter: 59 kg (130 lb 1.1 oz). BSA: Estimated body surface area is 1.69 meters squared as calculated from the following: Height as of this encounter: 1.753 m (5' 9.02 ). Weight as of this encounter: 59 kg (130 lb 1.1 oz). EXAM GENERAL: chronically ill appearing, thin, alert, male in no acute distress EYES: PERRLA EOMI; No scleral icterus HEENT: OP clear, no evidence of oral lesions, mucosal ulceration. The tongue is mobile, tonsils arepresent, and palatal elevation is normal. NECK: Supple, without thyromegaly or adenopathy. NODES: no axillary nodes are noted RESPIRATORY: Clear to auscultation. No rhonchi, rubs or wheezes are heard. on 2L/NC oxygen HEART: regular without murmur, rub or gallop, PMI non-displaced ABDOMEN: positive bowel sounds, non-tender, non-distended, No hepatomegaly, no splenomegaly, no other masses noted EXT: No edema, pulses 2+ in posterior tibial/dorsalis pedis, SKIN: No rash or subcutaneous nodules, no bruising NEURO: Alert, Oriented x 3, CN II-XII intact. Motor 5/5 in lead applications developer, bicep, tricep, dorsi/plantar flexors. affect appropriate, memory intact to short and long-term events, gait normal Pathology Final Diagnosis (no units) Date/Time Value 02/09/2025 1217 CHEST NODULE, LEFT, SUPERFICIAL FINE NEEDLE ASPIRATION: - SUSPICIOUS FOR MALIGNANCY. SEE COMMENT. Comment (no units) Date/Time Value 02/09/2025 1217 There are several atypical and degenerated squamous cells present, which are suspicious for squamous cell carcinoma. However, in the setting of a cystic lesion (with approximately 4 ml of straw-colored fluid obtained), the epithelial atypia could be reactive/degenerative, rather than neoplastic. Addendum (no units) Date/Time Value 03/02/2024 1326 [...] FDA-approved test, with diseaseprogression on or after mohegan-containing chemotherapy. Patients with EGFR or ALK genomic tumor aberrations should have disease progression on FDA-approved therapy for these aberrations prior to rec eiving Pembrolizumab. PD-L1 IHC serves as a complementary diagnostic in regards to other PD-L1/GT-2-enljrmydgsyqzqead (Nivolumab, Atezolizumab, Durvalumab, etc). Expression level: >Negative for PD-L1 expression (TPS less than 1%) >Positive for PD-L1 expression (TPS 1-49%) >Positive for high PD-L1 expression (TPS greater than or equal to 50%) *PD-L1 IHC 22C3 pharmDx is a FDA-approved vice president biostatistics diagnostic for pembrolizumab performed on Dako Case[employer] Stainer using formalin-fixed, paraffin imbedded (FFPE) tissue [...] developed by and are performed at the [facility], [address] [place] [address]. All tests reported here, except those addressing [...] personally Lab Results Component Value Date WBC 19.59 (H) 03/02/2025 RBC 2.43 (L) 03/02/2025 HGB 7.1 (L) 03/02/2025 HCT 24.5 (L) 03/02/2025 MCV 101 (H) 03/02/2025 MCHC 29.0 (L) 03/02/2025 RDW 17.0 (H) 03/02/2025 PLT 244 03/02/2025 MPV 10.2 03/02/2025 Lab Results Component Value Date BUN 7 (L) 03/02/2025 CL 100 03/02/2025 NA 137 03/02/2025 K 4.6 03/02/2025 TP 7.4 03/02/2025 AST 25 03/02/2025 ALT 43 03/02/2025 No image results found. I visualized the [...] disease stability. The cancer was staged at [id number].Other small nodules will be watched. And his case was also discussed in the multiD conference. However, recent PET on 10/15/24 showed PD with involvement of N2 node on the left. Chemoradiation was started on 11/17/24. 1. Cancer management : Early stage lung cancer- [id number] 02/2024. -patient was longstanding history of smoking [...] start concurrently with IMRT (D1= 11/17/24). - CT c/a/p performed on 01/10/25 shows evidence of disease progression with increase in the ROSENDO pulmonary nodule now measuring 19 x 11 mm and a new L upper renal pole mass. MRI brain shows no evidenceof brain mets. - Patient was started on carbo/taxol/pembrolizumab (C1D1 01/12/25) -Labs reviewed and appropriate to proceed with chemotherapy today (03/02/2025) after visit. - CT-chest 02/15/25 with good response to treatment thus far and he is tolerating treatment well. Plan: -continue with C3 carbo/taxol/pembro today 03/02/25 -transfuse 1U pRBC today -RTC in 3-weeks with labs prior to next cycle 2. Dysphagia - complains of six-month history [...] show any evidence of disease elsewhere. - previously discussed the importance of getting endoscopy to rule out any esophageal lesions or stricture - patient would get referral to GI from primary care. 3. Molecular studies - Caris will not be ordered at this point. 4. Clinical Trials - Will keep in mind in the future - Not eligible for TORY-008 5. At Risk of Infection related to [...] by PCP). 6. Supportive Care Weight loss- Manager System consult today (weight trend is DOWN). Anticipated NV related to chemotherapy- PRN antiemetics per protocol-- asymptomatic currently. Tobacco cessation counseling -- receptive, encouraged. TTOP. 7. Anemia 2/2 Chemotherapy -patient symptomatic with worsened dyspnea and fatigue -labs notable for drop in Hg from 8.7 to 7.1 -Exam reassuring with clear lung antunez and no abnormal cardiac findings -will transfuse 1U pRBCs given symptomatic anemia -consent obtained today 03/02/25, will order Type and Screen Misael Mc MD Hematology/Oncology Fellow, PGY4 03/02/2025 Patient discussed in detail with Dr. Vicente Arriaga, Maninder Zhang MD, saw and evaluated the patient. I discussed the case with the medical student and resident/fellow and agree with the findings and plan as documented. I personally performed the Exam and Medical Decision Making. * Progress Notes - Chrissy Wells, PharmD - 03/02/2025 9:00 AM EDT Pharmacy Hematology/Oncology Treatment Note Bryson [...] days [x] Follow-Up Clinical Review for Cycle 3 [] Follow-Up Clinical Review for Continuous Oral [...] reviewed and okay to proceed with treatment. 03/02/25: The FNA from the nodule on Mr. Teixeira's chest resulted as suspicious for malignancy. Hemoglobin has downtrended to 7.1 today and he is symptomatic, so will transfuse 1u today. Labs reviewed and appropriate for treatment. Treatment plan weight updated for >10% weight loss. Today's Wt: Wt Readings from Last 1 Encounters: 03/02/25 58.9 kg (129 lb 13.6 oz) Dosing Wt: 58.9 kg Dosing Ht: 175.3 cm DosingBSA: 1.72 m2 Recent Labs: Lab Results Component Value Date WBC 19.59 (H) 03/02/2025 HGB 7.1 (L) 03/02/2025 HCT 24.5 (L) 03/02/2025 MCV 101 (H) 03/02/2025 PLT 244 03/02/2025 Lab Results Component Value Date GLUCOSE 232 (H) 03/02/2025 CALCIUM 9.8 03/02/2025 NA 137 03/02/2025 K 4.6 03/02/2025 CO2 23 03/02/2025 CL 100 03/02/2025 BUN 7 (L) 03/02/2025 CREATININE 0.76 03/02/2025 Lab Results Component Value Date ALT 43 03/02/2025 AST 25 03/02/2025 ALKPHOS 205 (H) 03/02/2025 BILITOT 0.5 03/02/2025 Lab Results Component Value Date NEUTROABS 17.37 (H) 03/02/2025 Lab Results Component Value Date MG 1.9 03/02/2025 Lab Results Component Value Date TSH 1.63 03/02/2025 Lab Results Component Value Date URINEPRO Negative 04/03/2023 Vitals: Visit Vitals BP 92/62 (BP Location: Left arm) Pulse 80 Temp 36.7 ??C (98 ??F) (Oral) Resp 18 Other Relevant Monitoring: for carboplatin: ActBW (BMI <25): 59 kg SCr: Results from last 7 days Lab Units 03/02/25 0907 CREATININE mg/dL 0.76 eCrCl: 85.2 ml/min Treatment/Therapy Plan: Carboplatin AUC 6 IV Day 1 Paclitaxel 180 mg/m2 (312 mg) IV Day 1 Pembrolizumab 200 mg (flat dose) IV Day 1 Every 21 Days [x] Taxol dose reduced 10% for predicted tolerability Current Treatment Plan History: Carbo/Taxol/Pembro Cycle 1: 01/19/25 Cycle 2: 02/09/25 Cycle 3: 03/02/25 Prior Treatment History: SBRT Complete 04/14/24 Carbo/Taxol/XRT Cycle 1: 11/17/34 Cycle 2: 11/24/24 Cycle 3: 12/01/24 Cycle 4: 12/08/24 Cycle 5: 12/15/24 Cycle 6: 12/22/24 Plan: Patient will return to clinic in 3 weeks with scans prior. Will follow-up at that time. Pharmacist Attestation: Chrissy Wells, [place], [facility] Clinical Oncology Pharmacist documented in this encounter Plan of Treatment Upcoming Encounters Date Type Department Care Team (Late st Contact Info) Description 03/23/2025 8:30 AM EDT Appointment [facility] [address] [place] [address] 03/23/2025 10:30 AM EDT Clinical Support Pav CC Head, Neck & Respiratory [address] [facility], [address]nd [place] [address] 03/23/2025 11:00 AM EDT Office Visit Pav CC Head, Neck & Respiratory [address] [facility]nd [place] [address] Maninder Zhang MD [address] [facility] Sh[facility] Dubois [facility] [address] [place] [address] 03/23/2025 12:00 PM EDT Appointment [facility] Infusion [address] [place] [address] documented as of this encounter Visit Diagnoses Diagnosis Malignant neoplasm of upper lobe of left lung (CMS/HCC)- Primary Encounter for antineoplastic chemotherapy Antineoplastic chemotherapy induced anemia documented in this encounter Additional Health Concerns Assessment Noted Time A fall risk assessment has been complete d for the patient 03/02/2025 10:44 AM EDT A Body Mass Index follow-up plan has been documented for the patient 03/02/2025 6:30 PM EDT documented as of this encounter Care Teams Tailercpa Relationship Specialty Start Date End Date Constantine Stiles, TEAM GUIDE [address] [place] [address] PCP - General 01/21/23 Farhat Gómez MD [address] [facility] [address] [place] [address] Consulting Physician Radiation Oncology 10/27/24 documented as of this encounter
--- OUTSIDE RECORDS SUMMARY | 2025-03-02 10:30 | XMS_ITS | Encounter Summary ---
Author Organization [facility] Address [address] [place] [address] Care Team Providers Care Autism Teacher Name Role Phone Linsey Constantine Ashford APRN Primary Care Provider [phone] Farhat Gómez MD Unavailable Reason for Visit * Episode Based Medications (Routine) - Authorized Specialty Diagnoses / Procedures Referred By Contac t Referred To Contact Diagnoses Malignant neoplasm of upper lobe of left lung (CMS/HCC) Procedures Pembrolizumab / PACLitaxel / CARBOplatin Every 21 Days Maninder Zhang MD [address] [address] Phone: tel: fax: Maninder Zhang MD [address] [address] Phone: tel: fax: Referral ID Status Reason Start Date Expiration Date V isits Requested Visits Authorized [id number] Authorized 01/19/2025 07/21/2026 1 7 Encounter Details Date Type Department Care Team (Latest Contact Info) Description 03/02/2025 10:30 AM EDT - 03/02/2025 11:20 AM EDT Hospital Encounter [facility] H Infusion [address] [place] [address] Malignant neoplasm of upper lobe of left [...] Upcoming Encounters Date Type Department Care Team ([facility] st Contact Info) Description 03/23/2025 8:30 AM EDT Appointment [facility] [address] [place] [address] 03/23/2025 10:30 AM EDT Clinical Support Pav CC Head[facility] Neck [facility] Respiratory [address] [address] 03/23/2025 11:00 AM EDT Office Visit Pav [facility] Head[facility] Neck [facility] Respiratory [address] [address] Maninder Zhang MD 800 [facility] Shannan Dubois [facility] [address] [place] [address] 03/23/2025 12:00 PM EDT Appointment [facility] Infusion [address] [place] [address] documented as of this encounter Procedures Procedure [...] Units (03/02/2025 12:29 PM EDT) Product Code [id number] BLOO D BANK Dispense Status Transfused BLOOD BANK Blood Expiration Date [id number] BLOOD BANK Unit Number [id number] CH B LOOD BANK Product Blood Type 6200 BLOOD BANK Blood Type A+ BLOOD BANK Crossmatch Compatible BLOOD BANK Other Maninder Zhang MD BLOOD BANK PRODUCT ORDERABLES Fi nal Result Performing Organization Address City/[facility] Co de Phone Number BLOOD BANK [address] * Type and Screen (03/02/2025 12:00 PM [...] BLOOD BANK TEST ORDERABLES F inal Result Performing Organization Address City/[facility] Co de Phone Number BLOOD BANK [address] documented in this encounter Visit Diagnoses Diagnosis [...] documented as of this encounter Care Teams Autism Teacher Relationship Specialty Start Date End Date Constantine Stiles APRN [address] [place] [address] PCP - General 01/21/23 Farhat Gómez MD [address] [phone] Consulting Physician Radiation Oncology 10/27/24 documented as of this encounter
--- OUTSIDE RECORDS SUMMARY | 2025-03-02 11:21 | XMS_ITS | Encounter Summary ---
Author Organization [facility] Address [address] [place] [address] Care Team Providers Care Executive Marketing Assistant Name Role Phone Darryldejon Constantine Dejon CH Primary Care Provider [phone] Farhat Gómez MD Unavailable Reason for Visit * Episode Based Medications (Routine) - Authorized Specialty Diagnoses / Procedures Referred By Contac t Referred To Contact Diagnoses Malignant neoplasm of upper lobe of left lung (CMS/HCC) Procedures General Blood Administration for Outpatient (One Time) Maninder Zhang MD [address] [address] Phone: tel: fax: Maninder Zhang MD [address] [address] Phone: tel: fax: Referral ID Status Reason Start Date Expiration Date V isits Requested Visits Authorized [id number] Authorized 03/02/2025 09/01/2026 1 12 Encounter Details Date Type Department Care Team (Latest Contact Info) Description 03/02/2025 11:21 AM EDT - 03/02/2025 11:59 PM EDT Hospital Encounter [facility] [address] [place] [address] Malignant neoplasm of upper lobe of left [...] on one occasion? Never 03/02/2025 8:56 AM [facility]LLT Kristine Lewis documented as of this encounter [...] Info) Description 03/23/2025 8:30 AM EDT Appointment [facility] [address] [place] [address] 03/23/2025 10:30 AM EDT Clinical Support [facility] [address] [facility], [address]nd [place] [address] 03/23/2025 11:00 AM EDT Office Visit [facility] [address] [place] [address] Maninder Zhang MD [address] [facility] [address] [place] [address] 03/23/2025 12:00 PM EDT Appointment [facility] [address] [place] [address] documented as of this encounter Visit Diagnoses [...] documented as of this encounter Care Teams Executive Marketing Assistant Relationship Specialty Start Date End Date Constantine Stiles APRN [address] [place] [address] PCP - General 01/21/23 Farhat Gómez MD [address] [place] [address] Consulting Physician Radiation Oncology 10/27/24 documented as of this encounter
--- NOTE | 2025-03-08 13:06 | ECG_ITS ---
APPROVED REPORT Exam: Resting ECG HR:96 bpm ECG Measurements Heart Rate 96 AXES NV 138 P 83 QRSd 110 QRS 85 QT 352 T 79 QTc 406 Conclusion SINUS RHYTHM NONSPECIFIC T-WAVE ABNORMALITY BORDERLINE ECG UNCONFIRMED REPORT Electronically signed by : DIDIER NICOLAS, 03/09/2025 06:31:46
--- NOTE | 2025-03-08 13:08 | ED_ITS ---
Discharge Plan Disposition Patient Disposition: Xfer Short-Term Hosp Condition: Serious Prescriptions Prescriptions: No Action buprenorphine-naloxone 8-2 mg tablet, sublingual 2 tab SL DAILY Vraylar 1.5 mg capsule 1.5 mg PO DAILY Qty: 90 2RF ipratropium-albuterol 0.5 mg-3 mg(2.5 mg base)/3 mL solution for nebulization 3 ml inhalation QID PRN (Reason: shortness of breath or wheezing) 90 Days Qty: 270 3RF Breztri Aerosphere 160-9-4.8 mcg/actuation HFA aerosol inhaler 2 inh inhalation BID 90 Days Qty: 10.7 3RF nicotine (polacrilex) 2 mg gum 2 mg buccal Q2H PRN (Reason: nicotine cravings) Qty: 396 0RF Rx Instructions: Weeks 1 to 6: Chew 1 piece every 2 hours As NEEDED Weeks 7 to 9: Chew 1 piece every 4 hors As NEEDED Weeks 1o to 12: Chew 1 piece every 8 hours As NEEDED olanzapine 5 mg tablet 5 mg PO gabapentin 800 mg tablet 800 mg PO TID Qty: 90 3RF polyethylene glycol 3350 [Miralax] 17 gram/dose powder 17 g PO DAILY PRN (Reason: constipation) 4 Days Qty: 68 0RF docusate sodium [Colace] 100 mg capsule 100 mg PO DAILY Qty: 30 0RF tamsulosin [Flomax] 0.4 mg capsule 0.4 mg PO DAILY Qty: 14 0RF celecoxib [Celebrex] 100 mg capsule 100 mg PO DAILY Qty: 60 2RF cyclobenzaprine 10 mg tablet 10 mg PO BID Patient Comments: TAKE ONE TABLET BY MOUTH 2 TIMES A DAY NEEDED FOR MUSCLE SPASMS omeprazole 40 mg capsule,delayed release(DR/EC) 40 mg PO DAILY Qty: 90 3RF prednisone 20 mg tablet 20 mg PO BID 5 Days Qty: 10 0RF albuterol sulfate 90 mcg/actuation HFA aerosol inhaler 2 inh inhalation QID PRN (Reason: shortness of breath or wheezing) 90 Days Qty: 8.5 2RF sennosides [Senna Lax] 8.6 mg tablet 8.6 mg PO DAILY PRN (Reason: constipation) Qty: 30 0RF polyethylene glycol 3350 [Miralax] 17 gram/dose powder 17 g PO DAILY PRN (Reason: constipation) Qty: 510 0RF Referrals Follow up/Referrals: Constantine Stiles APRN [Primary Care Provider, Family Practice] - See instructions Activity Restrictions/Add. Instructions Additional Instructions/Restrictions: To [facility] care of Dr. Blank Clinical Impressions Clinical Impression: Multifocal pneumonia, Pancytopenia, Symptomatic anemia, Malignant neoplastic disease, Immunosuppression Stand Alone Forms Stand Alone Forms: Transfer Record - ED Print Language Print Language: Gibraltarian Discharge ED Provider: Jesus Coker General Adult HPI <KIMMY Snell - Last Filed: 03/08/25 15:42> General Chief complaint: Shortness of Breath/Dyspnea Stated complaint: WEAKNESS Time Seen by Provider: 03/08/25 13:08 History of Present Illness HPI narrative: Patient presents for evaluation of weakness and increasing dyspnea. Patient has a complex medical history but primarily has COPD that is oxygen dependent at 2 L by nasal cannula and most recently widely metastatic lung cancer to distant sites and bone. Patient is currently receiving all of his cancer care at the [facility]. He is currently undergoing 2 agent chemotherapy along with immunotherapy. His last chemotherapy was on 03/02/2025 and the patient was noted to be anemic with a hemoglobin of 7.1 and a white count of 19 at that time. He received a unit of packed red blood cells as well. Patient reported feeling well after his transfusion but as significantly declined since. He reports that he is short of breath even at rest and normally patient is able to get up to go to the bathroom independently. He denies any fever chills hemoptysis hematochezia melena nausea vomiting diarrhea. Related Data Home Medications ?Medication ?Instructions ?Recorded ?Confirmed buprenorphine 8 mg-naloxone 2 mg 2 tab sublingual KEELY Y . 04/08/22 02/11/25 sublingual tablet olanzapine 5 mg tablet 5 mg PO 01/12/25 02/11/25 cyclobenzaprine 10 mg tablet 10 mg PO BID 01/24/25 Previous Rx's ?Medication ?Instructions ?Recorded ipratropium 0.5 mg-albuterol 3 mg 3 ml inhalation QID PRN shortness 01/30/24 (2.5 mg base)/3 mL nebulization of breath or wheezing 90 days #270 soln mL cariprazine 1.5 mg capsule 1.5 mg PO DAILY #90 caps (Vraylar) budesonide 160 mcg-glycopyr 9 2 inh inhalation BID 90 days #10.7 07/01/24 mcg-formot 4.8 mcg/actuation HFA grams inhaler (Breztri Aerosphere) nicotine (polacrilex) 2 mg gum 2 mg buccal Q2H PRN edi otine 07/01/24 cravings #396 ea omeprazole 40 mg capsule,delayed 40 mg PO DAILY #90 ca ps 08/04/24 release docusate sodium 100 mg capsule 100 mg PO DAILY #30 cap s 01/06/25 (Colace) polyethylene glycol 3350 17 17 g PO DAILY PRN constipa tion 4 01/06/25 gram/dose oral powder (Miralax) days #68 grams tamsulosin 0.4 mg capsule (Flomax) 0.4 mg PO DAILY #14 caps 01/06/25 gabapentin 800 mg tablet 800 mg PO TID #90 tabs 01/12 albuterol sulfate 90 mcg/actuation 2 inh inhalation QI D PRN shortness 01/25/25 aerosol inhaler of breath or wheezing 90 day s #8.5 grams prednisone 20 mg tablet 20 mg PO BID 5 days #10 tabs 01/25/25 celecoxib 100 mg capsule (Celebrex) 100 mg PO DAILY #6 0 caps 02/11/25 polyethylene glycol 3350 17 17 g PO DAILY PRN constipa tion 02/15/25 gram/dose oral powder (Miralax) #510 grams sennosides 8.6 mg tablet (Senna 8.6 mg PO DAILY PRN co nstipation 02/15/25 Lax) #30 tabs Allergies Allergy/AdvReac Type Severity Reaction Status Date / Time No Known Allergies Allergy Verified 02/11/25 10:22 [facility] <KIMMY Snell - Last Filed: 03/08/25 15:42> [facility] Disclaimer: The information contained in this section may have been updated after the patient was seen, as this information can be updated by other users. Medical History Lung cancer Multiple lung nodules on CT Solid nodule of lung greater than 8 mm in diameter Dyspnea on exertion Encounter for screening for malignant neoplasm of lung Smoking greater than 30 pack years COPD mixed type DDD (degenerative disc disease), lumbar Surgical History History of lung biopsy History of back surgery No history of previous surgery Family History Other No significant family history Social History Smoking Status: Former smoker tobacco type: cigarettes packs per day: 2 smoking status stop date: November 2023 alcohol intake: never substance use type: former substance user current occupational status: employed Travel in the last 8 weeks?: None Have you lived/traveled outside [place] in past 30 days?: No Contact w/someone who lives/traveled outside US past 30 days?: No Exposure to someone with infectious disease in past 14 days?: No Do you have a fever (greater than 100.4 F or 38 C)?: No Have you tested positive for COVID-19?: No Exposed to someone with COVID-19 in past 14 days?: No Do you have a sore throat?: No Do you have a cough?: No Do you have any weakness?: Yes Do you have any diarrhea?: No Are you experiencing any unusual bleeding?: No Do you have any muscle aches/pain?: No Do you have any abdominal pain?: No Are you experiencing loss of taste or smell?: No Other Medical History Have you received the Flu Vaccine for this season: No Have you received the Pneumonia Vaccine: No <KIMMY Snell - Last Filed: 03/08/25 15:42> ROS Obtained: Yes Systems reviewed as appropriate & no additional complaints except as documented Physical Exam <KIMMY Snell - Last Filed: 03/08/25 15:42> General General appearance: alert and in no apparent distress Respiratory Respiratory exam: Present other (Audible rhonchorous cough diminished air entry but no increased work of breathing or accessory muscle use.); Absent respiratory distress Cardiovascular Cardiovascular exam: Present regular rate Neurological Exam Neurological exam: Present alert and oriented X3 Medical Decision Making <KIMMY Snell - Last Filed: 03/08/25 15:42> Medical Records Medical records reviewed: Yes I reviewed the patient's medical records. Screening: Per USPSTF and CDC recommendations, given the prevalence of disease in our region, it is our hospital?s policy to screen for HIV and viral Hepatitis for all patients aged 18 and over and those with ongoing risk factors. Handy Inquiry Pt receiving controlled substance: No Vital Signs: 03/08/25 13:17 03/08/25 13:30 03/08/25 14:00 Temperature 98.2 F Temperature Source Oral Pulse Rate 97 H 111 H Pulse Rate [Left Radial] 96 H Respiratory Rate 20 17 14 Blood Pressure 94/60 L 111/71 Blood Pressure [Right Arm] 99/64 L Blood Pressure Mean 66 Blood Pressure Mean [Right Arm] 75 02 Sat by Pulse Oximetry 95 94 L 96 Oxygen Delivery Method Nasal Cannula Oxygen Flow Rate (LPM) 4 03/08/25 15:00 03/08/25 16:05 Temperature 98.2 F Temperature Source Pulse Rate 101 H 101 H Pulse Rate [Left Radial] Respiratory Rate 30 H Blood Pressure 99/61 L 99/61 L Blood Pressure [Right Arm] Blood Pressure Mean Blood Pressure Mean [Right Arm] 02 Sat by Pulse Oximetry 90 L Oxygen Delivery Method Nasal Cannula Oxygen Flow Rate (LPM) 4 Lab Data Lab results reviewed: Yes I reviewed the patient's lab results. Lab Results 03/08/25 13:13: WBC 1.2 L*, RBC 2.09 L, Hgb 6.0 L*, Hct 20.3 L*, MCV 97.1 H, MCH 28.7, MCHC 29.6 L, RDW 16.6, Plt Count 82 L, MPV 11.5 H, Neut % (Auto) 70.1, Lymph % (Auto) 15.8, [place] % (Auto) 5.8, Eos % (Auto) 0.8, Baso % (Auto) 0.8, N eut # (Auto) 0.8 L*, Lymph # (Auto) 0.2 L, [place] # (Auto) 0.1, Eos # (Auto) 0.0, Baso # (Auto) 0.0, Total Counted 25, Neutrophils % (Manual) 80 H, Lymphocytes % (Manual) 16, Monocytes % (Manual) 4, Platelet Estimate Slight decrease, RBC Morphology Normal, Sodium 135 L, Potassium 3.3 L, Chloride 101, Carbon Dioxide 23, Anion Gap 14.3, BUN 17, Creatinine 0.60 L, Estimated Creat Clear 75, Estimated GFR 137, Est GFR ( Amer) 166, Glucose 165 H, Calcium 8.7, Magnesium 1.9, Total Bilirubin 0.5, AST 33, ALT 45, Alkaline Phosphatase 162 H, NT-Pro-B Natriuret Pep 483 H, Total Protein 6.4, Albumin 3.1 L, Globulin 3.3 H, Albumin/Globulin Ratio 0.9 L, Procalcitonin 1.5 03/08/25 13:38: Chlamy pneumoniae PCR Not detected, Adenovirus (PCR) Not detected, B. pertussis DNA (PCR) Not detected, Coronavirus OC43 (PCR) Not detected, Coronavirus HKU1 (PCR) Not detected, Coronavirus 229E (PCR) Not detected, SARS-CoV-2 (PCR) Not detected, Coronavirus NL63 (PCR) Not detected, Human Metapneumovir PCR Not detected, Influenza A (H1) PCR Not detected, Influ A (H1N1/09) PCR Not detected, Influenza A (H3) PCR Not detected, Influenza Type A (PCR) Not detected, Influenza Type B (PCR) Not detected, M. pneumoniae (PCR) Not detected, Parainfluenza 1 (PCR) Not detected, Parainfluenza 2 (PCR) Not detected, Parainfluenza 3 (PCR) Not detected, Parainfluenza 4 (PCR) Not detected, RSV (PCR) Not detected, Entero/Rhino (PCR) Detected A 03/08/25 14:13: Lactate 2.0, Total Creatine Kinase 27 L, Blood Type A Positive, Antibody Screen Negative, Crossmatch (AHG) See Detail 03/08/25 14:20: VBG pH 7.38, VBG pCO2 41.7, VBG pO2 40.6 H, VBG HCO3 24.1, VBG Total CO2 25.3, VBG O2 Saturation 68.5, VBG Base Excess -1.1, VBG Lactic Acid 2.2 H 03/08/25 15:03: WBC 1.1 L*, RBC 2.09 L, Hgb 6.1 L*, Hct 20.0 L*, MCV 95.7 H, MCH 29.2, MCHC 30.5 L, RDW 16.7, Plt Count 73 L, MPV 11.1 H, Neut % (Auto) 71.8, L ymph % (Auto) 7.5 L, [place] % (Auto) 5.7, Eos % (Auto) 0.9, Baso % (Auto) 0.9, N eut # (Auto) 0.8 L*, Lymph # (Auto) 0.1 L, [place] # (Auto) 0.1, Eos # (Auto) 0.0, Baso # (Auto) 0.0, Total Counted 100, Neutrophils % (Manual) 91 H, Lymphocytes % (Manual) 8 L, Monocytes % (Manual) 1 L, Platelet Estimate Moderate decrease, Poikilocytosis 1+, Anisocytosis 1+, Microcytosis 1+, Target Cells 1+, Tear Drop Cells 1+, Ovalocytes 1+, Blood Type Confirm A Positive 03/08/25 15:03 03/08/25 13:13 Orders (Tests/Meds): ED MEDICATIONS Discontinued Medications Generic Name Dose Route Start Last Admin Trade Name Freq PRN Reason Stop Dose Admin Albuterol/Ipratropium 9 ml 03/08/25 13:19 03/08/25 13:25 Ipratropium/Albuterol 3 Ml Neb IH 03/08/25 13:20 9 ml ONCE ONE Administration Dexamethasone Sodium Phosphate 10 mg 03/08/25 13:19 03/08/25 13:25 Dexamethasone 4mg/Ml 5ml Mdv IV 03/08/25 13:20 10 mg ONCE ONE Administration Sodium Chloride 250 mls @ 25 mls/hr 03/08/25 14:15 Sod Chlor 0.9% 250ml Bag IV 03/09/25 14:14 .Q10H SUPRIYA Cefepime HCl 2 gm/ Sodium 100 mls @ 200 mls/hr 03/08/25 15:02 Chloride IV 03/08/25 15:31 ONCE ONE Vancomycin/PEG/NADA/Lysine/Water 1.25 gm in 250 mls @ 125 mls/hr 03/08/25 15:15 Vancomycin 1.25gm/250ml (Peg) Premix IV 03/08/25 17:14 ONCE ONE Metronidazole 500 mg in 100 mls @ 100 mls/hr 03/08/25 15:16 Flagyl 500mg/100ml Ivpb IV 03/08/25 16:15 ONCE ONE Sodium Chloride 1,000 mls @ 999 mls/hr 03/08/25 15:22 Sod Chlor 0.9% 1000ml Bag IV 03/08/25 16:22 .Q1H1M ONE Iopamidol 80 ml 03/08/25 14:34 03/08/25 14:35 Iopamidol-370 (76%);100ml Bottle IV 03/08/25 14:35 80 ml ONCE ONE Administration Miscellaneous 1 each 03/08/25 15:15 Vancomycin Consult Request NOTAPPLIC 04/07/25 15:14 CONSULT PHARMACY SUPRIYA Sodium Chloride 10 ml 03/08/25 14:34 03/08/25 14:35 Sodium Chloride 0.9% 10ml Syr (Rad Only) IV 03/08/25 14:35 10 ml ONCE ONE Administration Sodium Chloride 50 ml 03/08/25 14:34 03/08/25 14:35 0.9 % Sodium Chloride 50 Ml Vial IV 03/08/25 14:35 50 ml ONCE ONE Administration ORDERS Category Date Time Status Type and Screen Stat BBK 03/08/25 14:[address] angio abd/pel - GI Bleed Stat Cat Scan 03/08/25 14:[address] angio chest PE protocol Stat Cat Scan 03/08/25 14:18 Completed Chest XR -- portable [XR chest portable] Stat Exams 03/08/25 13:19 Completed BNP [NT Pro Brain Natriuretic Pep.] Stat Lab 03/08/25 13:13 Completed CBC [Complete Blood Count Auto Diff] Stat Lab 03/08/25 15:03 Completed CBC w/Auto Diff [Complete Blood Count Auto Diff] Stat Lab 03/08/25 13:13 Completed CK [Creatine Kinase] Stat Lab 03/08/25 14:13 Completed CMP [Comprehensive Metabolic Panel] Stat Lab 03/08/25 13:13 Completed Full Resp Panel w/COVID ([facility]) Routine Lab 03/08/25 13:38 Completed Lactic Acid Stat Lab 03/08/25 14:13 Completed Magnesium Stat Lab 03/08/25 13:13 Completed Procalcitonin Stat Lab 03/08/25 13:13 Completed Blood Culture Stat Micro 03/08/25 14:06 Received VBG [Venous Blood Gas] Stat RT 03/08/25 14:20 Completed Tissue Perfus/Sepsis Re-Eval Sepsis Re-Evaluation Performed: Yes Date Performed: 03/08/25 Time Performed: 15:35 Medical Decision Narrative: In summary patient is a 59-year-old male who presents to the emergency department for evaluation of dyspnea and weakness. Patient is hemodynamically stable but hypotensive with a blood pressure of 99/64 however patient normally runs in the 90s at baseline, heart rates 96 respiratory rate is 20 O2 sats 95% on 6 L by nasal cannula upon arrival, afebrile at 98.2. Physical exam reveals a chronically ill-appearing much older than stated age appearing 59-year-old male who does not currently appear to be in acute distress. Patient is awake alert and oriented to person place and circumstance. Patient has no adventitious sounds on auscultation but has significantly diminished air entry in all 4 antunez. Patient has a coarse rhonchorous nonproductive cough at the time of my exam. Patient has breathless speech, abdomen is soft nontender no rebound no guarding no rigidity. Bowel sounds normal active. Patient has no dependent edema noted.. Differential diagnosis includes symptomatic anemia versus chemotherapy-induced anemia versus COPD exacerbation versus opportunistic infection due to his immunosuppression versus PE although less likely etc. Initial workup will be conducted with hematologic labs blood cultures VBG chest x-ray CT PE protocol CT abdomen pelvis. Initial interventions include DuoNeb and Decadron for now however I considered a sepsis bolus but given the possibility that he may have pulmonary impairment I have deferred until his OSUNA is more clear as the risk of increasing his respiratory distress is high with volume overload. Initial workup reviewed by me and patient shows pancytopenia with a white count of 1.1 hemoglobin of 6.1 and an absolute neutrophil count of 0.8 NT proBNP of 43 albumin of 3.1 high procalcitonin of 1.5 in my informal interpretation of his imaging shows multifocal bilateral lower lobe pneumonia no evidence of thrombus and no acute intra-abdominal processes. Patient was started on broad-spectrum antibiotics he was typed and screened and 1 unit of packed red blood cells was ordered for transfusion. Event evidence of lack of new response to multifocal pneumonia I had interactive discussion with [facility] regarding patient presentation O[facility]NA and management and he has been accepted to the [facility] emergency department care of Dr. Blank. <Jesus Coker MD - Last Filed: 03/09/25 10:34> Vital Signs: 03/08/25 13:17 03/08/25 13:30 03/08/25 14:00 Temperature 98.2 F Temperature Source Oral Pulse Rate 97 H 111 H Pulse Rate [Left Radial] 96 H Respiratory Rate 20 17 14 Blood Pressure 94/60 L 111/71 Blood Pressure [Right Arm] 99/64 L Blood Pressure Mean 66 Blood Pressure Mean [Right Arm] 75 02 Sat by Pulse Oximetry 95 94 L 96 Oxygen Delivery Method Nasal Cannula Oxygen Flow Rate (LPM) 4 03/08/25 15:00 03/08/25 16:05 Temperature 98.2 F Temperature Source Pulse Rate 101 H 101 H Pulse Rate [Left Radial] Respiratory Rate 30 H Blood Pressure 99/61 L 99/61 L Blood Pressure [Right Arm] Blood Pressure Mean Blood Pressure Mean [Right Arm] 02 Sat by Pulse Oximetry 90 L Oxygen Delivery Method Nasal Cannula Oxygen Flow Rate (LPM) 4 Lab Data Lab Results 03/08/25 13:13: WBC 1.2 L*, RBC 2.09 L, Hgb 6.0 L*, Hct 20.3 L*, MCV 97.1 H, MCH 28.7, MCHC 29.6 L, RDW 16.6, Plt Count 82 L, MPV 11.5 H, Neut % (Auto) 70.1, Lymph % (Auto) 15.8, [place] % (Auto) 5.8, Eos % (Auto) 0.8, Baso % (Auto) 0.8, N eut # (Auto) 0.8 L*, Lymph # (Auto) 0.2 L, [place] # (Auto) 0.1, Eos # (Auto) 0.0, Baso # (Auto) 0.0, Total Counted 25, Neutrophils % (Manual) 80 H, Lymphocytes % (Manual) 16, Monocytes % (Manual) 4, Platelet Estimate Slight decrease, RBC Morphology Normal, Sodium 135 L, Potassium 3.3 L, Chloride 101, Carbon Dioxide 23, Anion Gap 14.3, BUN 17, Creatinine 0.60 L, Estimated Creat Clear 75, Estimated GFR 137, Est GFR ( Amer) 166, Glucose 165 H, Calcium 8.7, Magnesium 1.9, Total Bilirubin 0.5, AST 33, ALT 45, Alkaline Phosphatase 162 H, NT-Pro-B Natriuret Pep 483 H, Total Protein 6.4, Albumin 3.1 L, Globulin 3.3 H, Albumin/Globulin Ratio 0.9 L, Procalcitonin 1.5 03/08/25 13:38: Chlamy pneumoniae PCR Not detected, Adenovirus (PCR) Not detected, B. pertussis DNA (PCR) Not detected, Coronavirus OC43 (PCR) Not detected, Coronavirus HKU1 (PCR) Not detected, Coronavirus 229E (PCR) Not detected, SARS-CoV-2 (PCR) Not detected, Coronavirus NL63 (PCR) Not detected, Human Metapneumovir PCR Not detected, Influenza A (H1) PCR Not detected, Influ A (H1N1/09) PCR Not detected, Influenza A (H3) PCR Not detected, Influenza Type A (PCR) Not detected, Influenza Type B (PCR) Not detected, M. pneumoniae (PCR) Not detected, Parainfluenza 1 (PCR) Not detected, Parainfluenza 2 (PCR) Not detected, Parainfluenza 3 (PCR) Not detected, Parainfluenza 4 (PCR) Not detected, RSV (PCR) Not detected, Entero/Rhino (PCR) Detected A 03/08/25 14:13: Lactate 2.0, Total Creatine Kinase 27 L, Blood Type A Positive, Antibody Screen Negative, Crossmatch (AHG) See Detail 03/08/25 14:20: VBG pH 7.38, VBG pCO2 41.7, VBG pO2 40.6 H, VBG HCO3 24.1, VBG Total CO2 25.3, VBG O2 Saturation 68.5, VBG Base Excess -1.1, VBG Lactic Acid 2.2 H 03/08/25 15:03: WBC 1.1 L*, RBC 2.09 L, Hgb 6.1 L*, Hct 20.0 L*, MCV 95.7 H, MCH 29.2, MCHC 30.5 L, RDW 16.7, Plt Count 73 L, MPV 11.1 H, Neut % (Auto) 71.8, L ymph % (Auto) 7.5 L, [place] % (Auto) 5.7, Eos % (Auto) 0.9, Baso % (Auto) 0.9, N eut # (Auto) 0.8 L*, Lymph # (Auto) 0.1 L, [place] # (Auto) 0.1, Eos # (Auto) 0.0, Baso # (Auto) 0.0, Total Counted 100, Neutrophils % (Manual) 91 H, Lymphocytes % (Manual) 8 L, Monocytes % (Manual) 1 L, Platelet Estimate Moderate decrease, Poikilocytosis 1+, Anisocytosis 1+, Microcytosis 1+, Target Cells 1+, Tear Drop Cells 1+, Ovalocytes 1+, Blood Type Confirm A Positive Orders (Tests/Meds): ED MEDICATIONS Discontinued Medications Generic Name Dose Route Start Last Admin Trade Name Felix PRN Reason Stop Dose Admin Albuterol/Ipratropium 9 ml 03/08/25 13:19 03/08/25 13:25 Ipratropium/Albuterol 3 Ml Neb IH 03/08/25 13:20 9 ml ONCE ONE Administration Dexamethasone Sodium Phosphate 10 mg 03/08/25 13:19 03/08/25 13:25 Dexamethasone 4mg/Ml 5ml Mdv IV 03/08/25 13:20 10 mg ONCE ONE Administration Sodium Chloride 250 mls @ 25 mls/hr 03/08/25 14:15 Sod Chlor 0.9% 250ml Bag IV 03/09/25 14:14 .Q10H SUPRIYA Cefepime HCl 2 gm/ Sodium 100 mls @ 200 mls/hr 03/08/25 15:02 Chloride IV 03/08/25 15:31 ONCE ONE Vancomycin/PEG/NADA/Lysine/Water 1.25 gm in 250 mls @ 125 mls/hr 03/08/25 15:15 Vancomycin 1.25gm/250ml (Peg) Premix IV 03/08/25 17:14 ONCE ONE Metronidazole 500 mg in 100 mls @ 100 mls/hr 03/08/25 15:16 Flagyl 500mg/100ml Ivpb IV 03/08/25 16:15 ONCE ONE Sodium Chloride 1,000 mls @ 999 mls/hr 03/08/25 15:22 Sod Chlor 0.9% 1000ml Bag IV 03/08/25 16:22 .Q1H1M ONE Iopamidol 80 ml 03/08/25 14:34 03/08/25 14:35 Iopamidol-370 (76%);100ml Bottle IV 03/08/25 14:35 80 ml ONCE ONE Administration Miscellaneous 1 each 03/08/25 15:15 Vancomycin Consult Request NOTAPPLIC 04/07/25 15:14 CONSULT PHARMACY SUPRIYA Sodium Chloride 10 ml 03/08/25 14:34 03/08/25 14:35 Sodium Chloride 0.9% 10ml Syr (Rad Only) IV 03/08/25 14:35 10 ml ONCE ONE Administration Sodium Chloride 50 ml 03/08/25 14:34 03/08/25 14:35 0.9 % Sodium Chloride 50 Ml Vial IV 03/08/25 14:35 50 ml ONCE ONE Administration ORDERS Category Date Time Status Type and Screen Stat BBK 03/08/25 14:[address] angio abd/pel - GI Bleed Stat Cat Scan 03/08/25 14:[address] angio chest PE protocol Stat Cat Scan 03/08/25 14:18 Completed Chest XR -- portable [XR chest portable] Stat Exams 03/08/25 13:19 Completed BNP [NT Pro Brain Natriuretic Pep.] Stat Lab 03/08/25 13:13 Completed CBC [Complete Blood Count Auto Diff] Stat Lab 03/08/25 15:03 Completed CBC w/Auto Diff [Complete Blood Count Auto Diff] Stat Lab 03/08/25 13:13 Completed CK [Creatine Kinase] Stat Lab 03/08/25 14:13 Completed CMP [Comprehensive Metabolic Panel] Stat Lab 03/08/25 13:13 Completed Full Resp Panel w/COVID ([facility]) Routine Lab 03/08/25 13:38 Completed Lactic Acid Stat Lab 03/08/25 14:13 Completed Magnesium Stat Lab 03/08/25 13:13 Completed Procalcitonin Stat Lab 03/08/25 13:13 Completed Blood Culture Stat Micro 03/08/25 14:06 Received VBG [Venous Blood Gas] Stat RT 03/08/25 14:20 Completed ECG Data Tracing #1: I reviewed this ECG and interpreted as documented below: (Sinus rhythm with nonspecific T wave changes. 96 bpm with OH 138, QRS 110, QTc 406. Normal axis no acute ischemic change) <Den Mendez MD - Last Filed: 03/08/25 19:03> Vital Signs: 03/08/25 13:17 03/08/25 13:30 03/08/25 14:00 Temperature 98.2 F Temperature Source Oral Pulse Rate 97 H 111 H Pulse Rate [Left Radial] 96 H Respiratory Rate 20 17 14 Blood Pressure 94/60 L 111/71 Blood Pressure [Right Arm] 99/64 L Blood Pressure Mean 66 Blood Pressure Mean [Right Arm] 75 02 Sat by Pulse Oximetry 95 94 L 96 Oxygen Delivery Method Nasal Cannula Oxygen Flow Rate (LPM) 4 03/08/25 15:00 03/08/25 16:05 Temperature 98.2 F Temperature Source Pulse Rate 101 H 101 H Pulse Rate [Left Radial] Respiratory Rate 30 H Blood Pressure 99/61 L 99/61 L Blood Pressure [Right Arm] Blood Pressure Mean Blood Pressure Mean [Right Arm] 02 Sat by Pulse Oximetry 90 L Oxygen Delivery Method Nasal Cannula Oxygen Flow Rate (LPM) 4 Lab Data Lab Results 03/08/25 13:13: WBC 1.2 L*, RBC 2.09 L, Hgb 6.0 L*, Hct 20.3 L*, MCV 97.1 H, MCH 28.7, MCHC 29.6 L, RDW 16.6, Plt Count 82 L, MPV 11.5 H, Neut % (Auto) 70.1, Lymph % (Auto) 15.8, [place] % (Auto) 5.8, Eos % (Auto) 0.8, Baso % (Auto) 0.8, N eut # (Auto) 0.8 L*, Lymph # (Auto) 0.2 L, [place] # (Auto) 0.1, Eos # (Auto) 0.0, Baso # (Auto) 0.0, Total Counted 25, Neutrophils % (Manual) 80 H, Lymphocytes % (Manual) 16, Monocytes % (Manual) 4, Platelet Estimate Slight decrease, RBC Morphology Normal, Sodium 135 L, Potassium 3.3 L, Chloride 101, Carbon Dioxide 23, Anion Gap 14.3, BUN 17, Creatinine 0.60 L, Estimated Creat Clear 75, Estimated GFR 137, Est GFR ( Amer) 166, Glucose 165 H, Calcium 8.7, Magnesium 1.9, Total Bilirubin 0.5, AST 33, ALT 45, Alkaline Phosphatase 162 H, NT-Pro-B Natriuret Pep 483 H, Total Protein 6.4, Albumin 3.1 L, Globulin 3.3 H, Albumin/Globulin Ratio 0.9 L, Procalcitonin 1.5 03/08/25 13:38: Chlamy pneumoniae PCR Not detected, Adenovirus (PCR) Not detected, B. pertussis DNA (PCR) Not detected, Coronavirus OC43 (PCR) Not detected, Coronavirus HKU1 (PCR) Not detected, Coronavirus 229E (PCR) Not detected, SARS-CoV-2 (PCR) Not detected, Coronavirus NL63 (PCR) Not detected, Human Metapneumovir PCR Not detected, Influenza A (H1) PCR Not detected, Influ A (H1N1/09) PCR Not detected, Influenza A (H3) PCR Not detected, Influenza Type A (PCR) Not detected, Influenza Type B (PCR) Not detected, M. pneumoniae (PCR) Not detected, Parainfluenza 1 (PCR) Not detected, Parainfluenza 2 (PCR) Not detected, Parainfluenza 3 (PCR) Not detected, Parainfluenza 4 (PCR) Not detected, RSV (PCR) Not detected, Entero/Rhino (PCR) Detected A 03/08/25 14:13: Lactate 2.0, Total Creatine Kinase 27 L, Blood Type A Positive, Antibody Screen Negative, Crossmatch (AHG) See Detail 03/08/25 14:20: VBG pH 7.38, VBG pCO2 41.7, VBG pO2 40.6 H, VBG HCO3 24.1, VBG Total CO2 25.3, VBG O2 Saturation 68.5, VBG Base Excess -1.1, VBG Lactic Acid 2.2 H 03/08/25 15:03: WBC 1.1 L*, RBC 2.09 L, Hgb 6.1 L*, Hct 20.0 L*, MCV 95.7 H, MCH 29.2, MCHC 30.5 L, RDW 16.7, Plt Count 73 L, MPV 11.1 H, Neut % (Auto) 71.8, L ymph % (Auto) 7.5 L, [place] % (Auto) 5.7, Eos % (Auto) 0.9, Baso % (Auto) 0.9, N eut # (Auto) 0.8 L*, Lymph # (Auto) 0.1 L, [place] # (Auto) 0.1, Eos # (Auto) 0.0, Baso # (Auto) 0.0, Total Counted 100, Neutrophils % (Manual) 91 H, Lymphocytes % (Manual) 8 L, Monocytes % (Manual) 1 L, Platelet Estimate Moderate decrease, Poikilocytosis 1+, Anisocytosis 1+, Microcytosis 1+, Target Cells 1+, Tear Drop Cells 1+, Ovalocytes 1+, Blood Type Confirm A Positive Orders (Tests/Meds): ED MEDICATIONS Discontinued Medications Generic Name Dose Route Start Last Admin Trade Name Felix PRN Reason Stop Dose Admin Albuterol/Ipratropium 9 ml 03/08/25 13:19 03/08/25 13:25 Ipratropium/Albuterol 3 Ml Neb IH 03/08/25 13:20 9 ml ONCE ONE Administration Dexamethasone Sodium Phosphate 10 mg 03/08/25 13:19 03/08/25 13:25 Dexamethasone 4mg/Ml 5ml Mdv IV 03/08/25 13:20 10 mg ONCE ONE Administration Sodium Chloride 250 mls @ 25 mls/hr 03/08/25 14:15 Sod Chlor 0.9% 250ml Bag IV 03/09/25 14:14 .Q10H SUPRIYA Cefepime HCl 2 gm/ Sodium 100 mls @ 200 mls/hr 03/08/25 15:02 Chloride IV 03/08/25 15:31 ONCE ONE Vancomycin/PEG/NADA/Lysine/Water 1.25 gm in 250 mls @ 125 mls/hr 03/08/25 15:15 Vancomycin 1.25gm/250ml (Peg) Premix IV 03/08/25 17:14 ONCE ONE Metronidazole 500 mg in 100 mls @ 100 mls/hr 03/08/25 15:16 Flagyl 500mg/100ml Ivpb IV 03/08/25 16:15 ONCE ONE Sodium Chloride 1,000 mls @ 999 mls/hr 03/08/25 15:22 Sod Chlor 0.9% 1000ml Bag IV 03/08/25 16:22 .Q1H1M ONE Iopamidol 80 ml 03/08/25 14:34 03/08/25 14:35 Iopamidol-370 (76%);100ml Bottle IV 03/08/25 14:35 80 ml ONCE ONE Administration Miscellaneous 1 each 03/08/25 15:15 Vancomycin Consult Request NOTAPPLIC 04/07/25 15:14 CONSULT PHARMACY SUPRIYA Sodium Chloride 10 ml 03/08/25 14:34 03/08/25 14:35 Sodium Chloride 0.9% 10ml Syr (Rad Only) IV 03/08/25 14:35 10 ml ONCE ONE Administration Sodium Chloride 50 ml 03/08/25 14:34 03/08/25 14:35 0.9 % Sodium Chloride 50 Ml Vial IV 03/08/25 14:35 50 ml ONCE ONE Administration ORDERS Category Date Time Status Type and Screen Stat BBK 03/08/25 14:[address] angio abd/pel - GI Bleed Stat Cat Scan 03/08/25 14:[address] angio chest PE protocol Stat Cat Scan 03/08/25 14:18 Completed Chest XR -- portable [XR chest portable] Stat Exams 03/08/25 13:19 Completed BNP [NT Pro Brain Natriuretic Pep.] Stat Lab 03/08/25 13:13 Completed CBC [Complete Blood Count Auto Diff] Stat Lab 03/08/25 15:03 Completed CBC w/Auto Diff [Complete Blood Count Auto Diff] Stat Lab 03/08/25 13:13 Completed CK [Creatine Kinase] Stat Lab 03/08/25 14:13 Completed CMP [Comprehensive Metabolic Panel] Stat Lab 03/08/25 13:13 Completed Full Resp Panel w/COVID ([facility]) Routine Lab 03/08/25 13:38 Completed Lactic Acid Stat Lab 03/08/25 14:13 Completed Magnesium Stat Lab 03/08/25 13:13 Completed Procalcitonin Stat Lab 03/08/25 13:13 Completed Blood Culture Stat Micro 03/08/25 14:06 Received VBG [Venous Blood Gas] Stat RT 03/08/25 14:20 Completed Medical Decision Narrative: In summary patient is a 59-year-old male who presents to the emergency department for evaluation of dyspnea and weakness. Patient is hemodynamically stable but hypotensive with a blood pressure of 99/64 however patient normally runs in the 90s at baseline, heart rates 96 respiratory rate is 20 O2 sats 95% on 6 L by nasal cannula upon arrival, afebrile at 98.2. Physical exam reveals a chronically ill-appearing much older than stated age appearing 59-year-old male who does not currently appear to be in acute distress. Patient is awake alert and oriented to person place and circumstance. Patient has no adventitious sounds on auscultation but has significantly diminished air entry in all 4 antunez. Patient has a coarse rhonchorous nonproductive cough at the time of my exam. Patient has breathless speech, abdomen is soft nontender no rebound no guarding no rigidity. Bowel sounds normal active. Patient has no dependent edema noted.. Differential diagnosis includes symptomatic anemia versus chemotherapy-induced anemia versus COPD exacerbation versus opportunistic infection due to his immunosuppression versus PE although less likely etc. Initial workup will be conducted with hematologic labs blood cultures VBG chest x-ray CT PE protocol CT abdomen pelvis. Initial interventions include DuoNeb and Decadron for now however I considered a sepsis bolus but given the possibility that he may have pulmonary impairment I have deferred until his OSUNA is more clear as the risk of increasing his respiratory distress is high with volume overload. Initial workup reviewed by me and patient shows pancytopenia with a white count of 1.1 hemoglobin of 6.1 and an absolute neutrophil count of 0.8 NT proBNP of 43 albumin of 3.1 high procalcitonin of 1.5 in my informal interpretation of his imaging shows multifocal bilateral lower lobe pneumonia no evidence of thrombus and no acute intra-abdominal processes. Patient was started on broad-spectrum antibiotics he was typed and screened and 1 unit of packed red blood cells was ordered for transfusion. Event evidence of lack of new response to multifocal pneumonia I had interactive discussion with [facility] regarding patient presentation OSUNA and management and he has been accepted to the [facility] emergency department care of Dr. Blank. I was consulted by the DEANNA, and we discussed the complexity of the problems being addressed. I approved the treatment and management plan for this patient's care in the emergency department, thus performing a substantive portion of the medical decision making. Den Mendez MD Critical Care <KIMMY Snell - Last Filed: 03/08/25 15:42> Critical Care Time Critical Care Time: Yes Attestation: On 03/08/25, the high probability of a clinically significant, sudden or life threatening deterioration of the following system(s) required my full and direct attention, intervention and personal management. The time I documented below is in addition to time spent performing reported procedures but includes the following listed in this critical care notation. Total Time Total Critical Care Time: 60
--- OUTSIDE RECORDS SUMMARY | 2025-03-08 13:09 | XMS_ITS | Encounter Summary ---
Author Organization Healthcare Address [address] [place] [address] Care Team Providers Care Wheel Assembler Name Role Phone Constantine Stiles APRN Primary Care Provider [phone] Farhat Gómez MD Unavailable Reason for Visit * Reason Comments Med Refill Encounter Details Date Type Department Care Team (Late st Contact Info) Description 01/26/2025 Refill [facility] Radiation [address] [place] [address] Farhat Gómez MD [address] [place] [address] Social History Tobacco Use Types Packs/Day Years [...] Info) Description 03/23/2025 8:30 AM EDT Appointment [facility] [address] [place] [address] 03/23/2025 10:30 AM EDT Clinical Support [facility] [address] [facility] [place] [address] 03/23/2025 11:00 AM EDT Office Visit [facility] [address] [facility] [place] [address] Maninder Zhang MD [address] [facility] [address] [facility] [address] [place] [address] 03/23/2025 12:00 PM EDT Appointment [facility] Infusion [address] [place] [phone] documented as of this encounter Visit Diagnoses Not on filedocumented in this encounter Additional Health Concerns Assessment Noted Time A fall risk assessment has been complete d for the patient 01/19/2025 9:13 AM EDT A Body Mass Index follow-up plan has been documented for the patient 01/19/2025 4:11 PM EDT documented as of this encounter Care Teams Wheel Assembler Relationship Specialty Start Date End Date Constantine Stiles APRN [address] [place] [address] PCP - General 01/21/23 Farhat Gómez MD [address] [facility] [address] [place] [address] Consulting Physician Radiation Oncology 10/27/24 documented as of this encounter
--- OUTSIDE RECORDS SUMMARY | 2025-03-08 13:09 | XMS_ITS | Encounter Summary ---
Author Organization Healthcare Address [address] [place] [address] Care Team Providers Care Straw Hat Brim Raiser Operator Name Role Phone Constantine Stiles DIMA Primary Care Provider [phone] Lars Dalton MD Unavailable Farhat Gómez MD Unavailable Encounter Details Date Type Department Care Team (Late st Contact Info) Description 06/28/2024 Orders Only External Location [address] [place] [phone] Provider, External Social History Tobacco Use Types Packs/Day Years [...] Encounters Date Type Department Care Team (Late Contact Info) Description 03/23/2025 8:[address] [facility] [address] [place] [address] 03/23/2025 10:30 AM EDT Clinical Support [facility] [address] [facility] [place] [phone] 03/23/2025 11:00 AM EDT Office Visit Pav [facility] Res[facility] [address] [facility] [place] [address] Maninder Zhang MD [address] [facility] [address] [place] [address] 03/23/2025 12:00 PM EDT Appointment [facility] Infusion [address] [place] [address] documented as of this encounter Procedures Procedure Name Priority Date/Time Associated Diagnosis Comments FL OUTSIDE IMAGES 06/28/2024 8:44 AM EDT documented in this encounter Results * FL OUTSIDE IMAGES (06/28/2024 8:44 AM EDT) Anatomical Region Laterality Modality Radiographic Fabiana ging 06/28/2024 8:44 AM EDT us External Provider IMG FLUOROSCOPY PROCEDURES Fin al Result documented in this encounter Visit Diagnoses Not on filedocumented in this encounter Additional Health Concerns Assessment Noted Time A fall risk assessment has been complete d for the patient 06/18/2024 1:56 PM EDT A Body Mass Index follow-up plan has been documented for the patient 03/10/2024 9:58 AM EDT documented as of this encounter Care Teams Straw Hat Brim Raiser Operator Relationship Specialty Start Date End Date Constantine Stiles APRN [address] [place] [id number] PCP - General 01/21/23 Lars Dalton MD [address] [facility] [address] [place] [address] Consulting Physician Radiation Oncology 03/08/24 Farhat Gómez MD [address] [facility] [address] [place] [address] Consulting Physician Radiation Oncology 10/27/24 documented as of this encounter
--- OUTSIDE RECORDS SUMMARY | 2025-03-08 13:09 | XMS_ITS | Clinical Summary ---
Author Organization [facility] Address [address] 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 3 Active gabapentin (Neurontin) 600 MG tablet Take 1 tablet (600 mg) by mouth 2 (two) times a day. 3 Active Stiolto Respimat 2.5-2.5 MCG/ACT aerosol solution inhaler 1 (one) time each day. 4 Active albuterol 108 (90 Base) MCG/ACT inhaler if needed. 4 Active guaiFENesin (MUCINEX PO) Take by mouth 2 (two) times a day if needed. Active ibuprofen 200 MG tablet Take 2 tablets (400 mg) by mouth every 6 hours as needed for mild pain. Active Vraylar 1.5 MG capsule Take 1 capsule (1.5 mg) by mouth daily. 4 Active nicotine polacrilex (Nicorette) 2 MG gum 4 Active oxygen (O2) gas Inhale 2 L/min continuously at 120,000 mL/hr. via nasal canula Active gabapentin (Neurontin) 800 MG tablet Take 1 tablet (800 mg) by mouth 2 (two) times a day. 5 Active senna-docusate sodium (Senokot-S) 8.6-50 MG tablet Take 1 tablet by mouth 2 (two) times a day as needed for constipation. 60 tablet 2 5 Active Additional Information Patient not taking.Reported on 03/02/2025 prochlorperazin e (Compazine) 10 MG tabletIndicatio ns:Malignant neoplasm of upper lobe of left lung (CMS/HCC) Take 1 tablet by mouth every 6 hours as needed for nausea or vomiting. 30 tablet 5 5 Active ondansetron (Zofran) 8 MG tabletIndicatio ns:Malignant neoplasm of upper lobe of left lung (CMS/HCC) Take 1 tablet by mouth in the morning and 1 tablet before bedtime. Take for two days, starting the day after chemotherapy and then take PRN. 30 tablet 5 5 Active docusate sodium (Colace) 100 MG capsule Take 1 capsule by mouth daily. 5 Active magnesium citrate 1.745 GM/30ML oral solution drink 296 ML BY MOUTH ONCE NEEDED FOR constipation 5 Active tamsulosin (Flomax) 0.4 MG 24 hr capsule Take by mouth daily. 5 Active OLANZapine (ZyPREXA) 5 MG tablet Take 0.5 tablets by mouth nightly. 15 tablet 5 Active Additional Information Patient not taking.Reported on 03/02/2025 dexamethasone (Decadron) 4 MG tabletIndicatio ns:Malignant neoplasm of upper lobe of left lung (CMS/HCC) Take 2 tablets by mouth daily. Take for 3 days starting the day after chemo. 24 tablet 5 Active Additional Information Patient not taking.Reported on 03/02/2025 prochlorperazin e (Compazine) 10 MG tabletIndicatio ns:Malignant neoplasm of upper lobe of left lung (CMS/HCC) Take 1 tablet by mouth every 6 hours as needed for nausea or vomiting. 30 tablet 5 5 Active cyclobenzaprine (Flexeril) 10 MG tablet TAKE ONE TABLET BY MOUTH 2 TIMES A DAY NEEDED FOR MUSCLE SPASMS 30 tablet 1 5 Active Active Problems Problem Noted Date Diagnosed Date Antineoplastic chemotherapy induced anemia 03/03 Encounter for antineoplastic chemotherapy 2024 Dysphagia 06/19/2024 Neck pain 06/19/2024 Second hand smoke exposure 06/18/2024 Malignant neoplasm of upper lobe of left lung Cancer Staging:Clinical: cT1, cN0, cM0 - Signed by Lars Dalton MD on 03/10/2024 Squamous cell carcinoma of left lung 03/10/2024 Cancer Staging:Clinical stage from 10/27/2024:Stage IIIA(ycT1c, ycN2, cM0) - Signed by Maninder Zhang MD on 10/28/2024 Chronic obstructive pulmonary disease, unspecifi ed 12/25/2023 Low back pain 03/04/2023 Spinal stenosis of lumbar re gion with neurogenic claudication 03/04/2023 DDD (degenerative disc disease), lumbar 03/04/20 Facet arthropathy, lumbar 03/04/2023 Herniated nucleus pulposus, L3-4 right Encounters Date Type Department Care Team Description 03/02/2025 11:21 AM EDT - 03/02/2025 11:59 PM EDT Hospital Encounter [facility] [address] [place] [address] Malignant neoplasm of upper lobe of left lung (CMS/HCC) Discharge Disposition: Home or Self Care 03/02/2025 10:30 AM EDT - 03/02/2025 11:20 AM EDT Hospital Encounter [facility] [address] [place] [address] Malignant neoplasm of upper lobe of left lung (CMS/HCC) (Primary Dx) Discharge Disposition: Home or Self Care 03/02/2025 9:00 AM EDT Office Visit [facility] [address] [facility], [address]nd [place] [address] Maninder Zhang MD Malignant neoplasm of upper lobe of left lung (CMS/HCC) (Primary Dx); Encounter for antineoplastic chemotherapy; Antineoplastic chemotherapy induced anemia 03/02/2025 8:45 AM EDT Clinical Support [facility] [address] [facility], [address] [place] [phone] Malignant neoplasm of upper lobe of left lung (CMS/HCC) 03/02/2025 Travel 02/15/2025 Orders Only External Location [address] [place] [address] Provider, External 02/15/2025 Orders Only External Location [address] [place] [address] Provider, External 02/10/2025 Orders Only [facility] [address] [facility], [address] [place] [phone] Tiffany Rosario, RN Squamous cell carcinoma of left lung (Primary Dx); Malignant neoplasm of upper lobe of left lung (CMS/HCC) 02/09/2025 12:30 PM EDT - 02/09/2025 11:59 PM EDT Hospital Encounter [facility] [address] [place] [address] Malignant neoplasm of upper lobe of left lung (CMS/HCC) (Primary Dx) Discharge Disposition: Home or Self Care 02/09/2025 11:30 AM EDT Office Visit [facility] [address] [phone] Elsa Judge APRN Malignant neoplasm of upper lobe of left lung (CMS/HCC) (Primary Dx); Dyspnea on exertion; Chemotherapy induced nausea and vomiting 02/09/2025 11:15 AM EDT Clinical Support [facility] [address] [facility], [address] [place] [phone] 02/09/2025 Travel 02/09/2025 Orders Only [facility] [address] [phone] Maninder Zhang MD Malignant neoplasm of upper lobe of left lung (CMS/HCC) (Primary Dx) 02/09/2025 Telephone [facility] [address] [facility], [address] [place] [phone] Tiffany Rosario, RN 01/26/2025 Refill [facility] [address] [facility]. [id number] [place] [address] Farhat Gómez MD 01/19/2025 9:11 AM EDT - 01/19/2025 11:59 PM EDT Hospital Encounter [facility] [address] [place] [address] Malignant neoplasm of upper lobe of left lung (CMS/HCC) (Primary Dx) Discharge Disposition: Home or Self Care 01/19/2025 9:00 AM EDT Clinical Support [facility] [address], [address] [place] [address] Malignant neoplasm of upper lobe of left lung (CMS/HCC) 01/19/2025 Travel 01/13/2025 Telephone [facility] [address], [address] [place] [address] Tiffany Rosario RN 01/12/2025 10:20 AM EDT Office Visit [facility] [address], [address] [place] [address] Maninder Zhang MD Malignant neoplasm of upper lobe of left lung (CMS/HCC) (Primary Dx); Squamous cell carcinoma of left lung; Elevated glucose level; Encounter for antineoplastic chemotherapy 01/12/2025 Travel 01/10/2025 2:23 PM EDT - 01/10/2025 11:59 PM EDT Hospital Encounter [facility] [address] [place] [phone] Malignant neoplasm of upper lobe of left lung (CMS/HCC) Discharge Disposition: Home or Self Care 01/10/2025 1:45 PM EDT Clinical Support [facility] [address], [address] [place] [address] Malignant neoplasm of upper lobe of left lung (CMS/HCC) 01/10/2025 Orders Only [facility] [address], [address] [place] [address] Maninder Zhang MD 01/10/2025 Travel 12/28/2024 2:37 PM EDT - 12/28/2024 11:59 PM EDT Hospital Encounter [facility] [id number] [place] [address] Discharge Disposition: Still a Patient 12/28/2024 Orders Only [facility] [id number] [place] [address] Radiation Oncology, PhysicianMD 12/28/2024 Orders Only [facility] [address] [phone] Radiation Oncology, PhysicianMD 12/28/2024 Telephone [facility] [address] [facility], [address]nd [place] [address] Tiffany Rosario RN 12/27/2024 2:42 PM EDT - 12/27/2024 11:59 PM EDT Hospital Encounter [facility] [address] [phone] Farhat Gómez MD Squamous cell carcinoma of left lung (Primary Dx) Discharge Disposition: Still a Patient 12/27/2024 2:42 PM EDT - 12/27/2024 11:59 PM EDT Hospital Encounter [facility] [address] [phone] Discharge Disposition: Still a Patient 12/27/2024 9:19 AM EDT - 12/27/2024 2:41 PM EDT Hospital Encounter [facility] [address] [phone] Discharge Disposition: Still a Patient 12/27/2024 Orders Only [facility] [address] [address] Radiation Oncology, PhysicianMD 12/27/2024 Travel 12/24/2024 2:34 PM EDT - 12/24/2024 11:59 PM EDT Hospital Encounter [facility] [address] [address] Discharge Disposition: Still a Patient 12/24/2024 Orders Only [facility] [address] [phone] Radiation Oncology, PhysicianMD 12/23/2024 2:37 PM EDT - 12/23/2024 11:59 PM EDT Hospital Encounter [facility] [address] [phone] Discharge Disposition: Still a Patient 12/23/2024 Orders Only [facility] [address] [address] Radiation Oncology, PhysicianMD 12/22/2024 2:34 PM EDT - 12/22/2024 11:59 PM EDT Hospital Encounter [facility] [address] [phone] Discharge Disposition: Still a Patient 12/22/2024 11:48 AM EDT - 12/22/2024 2:33 PM EDT Hospital Encounter [facility] [address] [place] [address] Malignant neoplasm of upper lobe of left lung (CMS/HCC) (Primary Dx); Squamous cell carcinoma of left lung Discharge Disposition: Home or Self Care 12/22/2024 Orders Only [facility] [address] [address] Radiation Oncology, PhysicianMD 12/22/2024 Travel 2024 2:36 PM EDT - 2024 11:59 PM EDT Hospital Encounter [facility] [address] [phone] Discharge Disposition: Still a Patient 2024 Orders Only [facility] [address] [address] Radiation Oncology, PhysicianMD 12/20/2024 3:25 PM EDT - 12/20/2024 11:59 PM EDT Hospital Encounter [facility] [address] [phone] Farhat Gómez MD Malignant neoplasm of upper lobe of left lung (CMS/HCC) Discharge Disposition: Still a Patient 12/20/2024 2:32 PM EDT - 12/20/2024 3:24 PM EDT Hospital Encounter [facility] [address] [phone] Discharge Disposition: Still a Patient 12/20/2024 8:44 AM EDT - 12/20/2024 2:31 PM EDT Hospital Encounter [facility] [address] [place] [address] Discharge Disposition: Still a Patient 12/20/2024 Orders Only [facility] [address] [phone] Radiation Oncology, PhysicianMD 12/20/2024 Travel 12/17/2024 2:32 PM EDT - 12/17/2024 11:59 PM EDT Hospital Encounter [facility] [address] [phone] Discharge Disposition: Still a Patient 12/17/2024 Orders Only [facility] [address] [phone] Radiation Oncology, PhysicianMD 12/16/2024 2:33 PM EDT - 12/16/2024 11:59 PM EDT Hospital Encounter [facility] [address] [phone] Discharge Disposition: Still a Patient 12/16/2024 Orders Only [facility] [address] [place] [address] Radiation Oncology, PhysicianMD 12/15/2024 2:42 PM EDT - 12/15/2024 11:59 PM EDT Hospital Encounter [facility] [address] [phone] Discharge Disposition: Still a Patient 12/15/2024 11:45 AM EDT - 12/15/2024 2:41 PM EDT Hospital Encounter [facility] [address] [place] [phone] Malignant neoplasm of upper lobe of left lung (CMS/HCC) (Primary Dx) Discharge Disposition: Home or Self Care 12/15/2024 Orders Only [facility] [address] [phone] Radiation Oncology, PhysicianMD 12/15/2024 Travel 12/14/2024 2:40 PM EDT - 12/14/2024 11:59 PM EDT Hospital Encounter [facility] [address] [phone] Discharge Disposition: Still a Patient 12/14/2024 Orders Only [facility] [address] [phone] Radiation Oncology, PhysicianMD 12/13/2024 2:44 PM EDT - 12/13/2024 11:59 PM EDT Hospital Encounter [facility] [address] [phone] Farhat Gómez MD Malignant neoplasm of upper lobe of left lung (CMS/HCC) (Primary Dx) Discharge Disposition: Still a Patient 12/13/2024 2:44 PM EDT - 12/13/2024 11:59 PM EDT Hospital Encounter [facility] [address] [phone] Discharge Disposition: Still a Patient 12/13/2024 8:47 AM EDT - 12/13/2024 2:43 PM EDT Hospital Encounter [facility] [address] [phone] Discharge Disposition: Still a Patient 12/13/2024 Orders Only [facility] [address] [address] Radiation Oncology, PhysicianMD 12/13/2024 Travel 12/10/2024 2:33 PM EDT - 12/10/2024 11:59 PM EDT Hospital Encounter [facility] [address] [phone] Discharge Disposition: Still a Patient 12/10/2024 Orders Only [facility] [address] [phone] Radiation Oncology, PhysicianMD 12/09/2024 2:28 PM EDT - 12/09/2024 11:59 PM EDT Hospital Encounter [facility] [address] [phone] Discharge Disposition: Still a Patient 12/09/2024 Orders Only [facility] [address] [phone] Radiation Oncology, PhysicianMD 12/08/2024 2:06 PM EDT - 12/08/2024 11:59 PM EDT Hospital Encounter [facility] [address] [phone] Discharge Disposition: Still a Patient 12/08/2024 11:05 AM EDT - 12/08/2024 2:05 PM EDT Hospital Encounter [facility] [address] [place] [phone] Malignant neoplasm of upper lobe of left lung (CMS/HCC) (Primary Dx) Discharge Disposition: Home or Self Care 12/08/2024 10:40 AM EDT Office Visit [facility] [address] [facility], [address] [place] [address] Maninder Zhang MD Encounter for antineoplastic chemotherapy (Primary Dx); Malignant neoplasm of upper lobe of left lung (CMS/HCC) 12/08/2024 Orders Only [facility] [address] [phone] Radiation Oncology, Physician, 12/08/2024 Travel 12/07/2024 2:35 PM EDT - 12/07/2024 11:59 PM EDT Hospital Encounter [facility] [address] [phone] Discharge Disposition: Still a Patient 12/07/2024 Orders Only [facility] [address] [phone] Radiation Oncology, PhysicianMD 12/06/2024 2:46 PM EDT - 12/06/2024 11:59 PM EDT Hospital Encounter [facility] [address] [phone] Farhat Gómez MD Malignant neoplasm of upper lobe of left lung (CMS/HCC) (Primary Dx) Discharge Disposition: Still a Patient 12/06/2024 2:46 PM EDT - 12/06/2024 11:59 PM EDT Hospital Encounter [facility] [address] [phone] Discharge Disposition: Still a Patient 12/06/2024 9:08 AM EDT - 12/06/2024 2:45 PM EDT Hospital Encounter [facility] [address] [place] [address] Discharge Disposition: Still a Patient 12/06/2024 Orders Only [facility] [address] [place] [address] [place] [address] Radiation Oncology, PhysicianMD 12/06/2024 Orders Only [facility] [address] [facility], [address] [place] [address] Tiffany Rosario, RN Malignant neoplasm of upper lobe of left lung (CMS/HCC) (Primary Dx); Squamous cell carcinoma of left lung (CMS/HCC) 12/06/2024 Travel from Last 3 Months Family History Medical History Relation Name Comments Colon cancer Brother Liver cancer Brother Heart Problem Mother Cancer Other Heart Problem Other Hypertension Other Stroke Other Relation Name Status Comments Brother Mother Other Social History Tobacco Use Types Packs/Day Years [...] on file Sexual Orientation Not on file Last Filed Vital Signs Vital Sign Reading [...] Mass Index 19.18 03/02/2025 10:42 AM EDT Plan of Treatment Upcoming Encounters Date Type Department Care Team (Late st Contact Info) Description 03/23/2025 8:30 AM EDT Appointment [facility] [address] [place] [address] 03/23/2025 10:30 AM EDT Clinical Support [facility] [address] [facility], [address] [place] [address] 03/23/2025 11:00 AM EDT Office Visit [facility] [address] [facility], [address] [place] [address] Maninder Zhang MD [address] [place] [address] 03/23/2025 12:00 PM EDT Appointment [facility] [address] [place] [phone] Health Maintenance Due Date Last Done Comments [facility]-Depression Screening 1965 [facility]-HIV Screening 1965 [facility]-Hepatitis C Screening 1965 [facility]-Infant/Child/Adol SDOH Screenings 1965 [facility]- SDOH Screenings 12/20/1981 [facility]-Adult SDOH Screenings 12/20/1981 [facility]-DTaP,Tdap,and Td Vaccine s (1 - Tdap) 12/20/1982 [facility]-Pneumococcal Vaccine: 50 + Years (1 of 2 - PCV) 12/20/1982 [facility]-Zoster Vaccines (1 of 2) 12/20/1982 CT Colonography 12/20/2008 Colonoscopy 12/20/2008 FIT-DNA 12/20/2008 FIT 12/20/2008 FOBT 12/20/2008 Sigmoidoscopy 12/20/2008 [facility]-Colorectal Cancer Screening 12/20/2008 IOR-SDHBD-02 Vaccine (3 - Moderna risk series) 01/04/2021 12/07/2020, 11/09/2020 [facility]-RSV Vaccine: 60+ Years o r (1 - Risk 60-74 years 1-dose series) 2023 [facility]-Influenza Vaccine (Seaso n Ended) 2025 [facility]-Lung Cancer Screening Discontinued 2024, 06/18/2024, 03/02/2024 HPV Vaccines Aged Out No longer eligi ble based on patient's age to complete this topic [facility]-HIB Vaccines Aged Out No longer e ligible based on patient's age to complete this topic [facility]-Hepatitis A Vaccines Aged Out No longer eligible based on patient's age to complete this topic [facility]-IPV Vaccines Aged Out No longer e ligible based on patient's age to complete this topic [facility]-Rotavirus Vaccines Aged Out No lo nger eligible based on patient's age to complete this topic Procedures Procedure Name Priority Date/Time Associated Diagnosis Comments TRANSFUSE RED BLOOD CELLS Routine 03/02/2025 4:50 PM EDT Malignant neoplasm of upper lobe of left lung (CMS/HCC) PREPARE RBC Routine 03/02/2025 12:29 PM EDT Malignant neoplasm of upper lobe of left lung (CMS/HCC) TYPE AND SCREEN Routine 03/02/2025 12:00 PM EDT TSH REFLEX FT4 Routine 03/02/2025 9:07 AM [...] of upper lobe of left lung (CMS/HCC) CT MSK OUTSIDE IMAGES 02/15/2025 8:[address] THORACIC OUTSIDE IMAGES 02/15/2025 8:54 AM EDT FINE NEEDLE ASPIRATION - CYTOLOGY Routine 02/09/2025 12:17 PM EDT Malignant neoplasm of upper lobe of left lung (CMS/HCC) CBC WITH AUTO DIFFERENTIAL Routine 02/09/2025 11:22 AM EDT Malignant neoplasm of upper lobe of left lung (CMS/HCC) COMPREHENSIVE METABOLIC PANEL, PLASMA Routine 02/09/2025 11:22 AM EDT Malignant neoplasm of upper lobe of left lung (CMS/HCC) MAGNESIUM, PLASMA STAT 02/09/2025 11: 22 AM EDT Malignant neoplasm of upper lobe of left lung (CMS/HCC) TSH REFLEX FT4 Routine 01/19/2025 8:58 AM [...] of upper lobe of left lung (CMS/HCC) CT CHEST W IV CONTRAST Routine 3:09 PM EDT Malignant neoplasm of upper lobe of left lung (CMS/HCC) COMPREHENSIVE METABOLIC PANEL, PLASMA Routine 01/10/2025 1:53 PM EDT Malignant neoplasm of upper lobe of left lung (CMS/HCC) CBC WITH AUTO DIFFERENTIAL Routine 01/10/2025 1:53 PM EDT Malignant neoplasm of upper lobe of left lung (CMS/HCC) RAD ONC ARIA COURSE SUMMARY Routine 12/28/2024 3:28 PM EDT RAD ONC ARIA SESSION SUMMARY Routine 12/28/2024 3:00 PM EDT RAD ONC ARIA SESSION SUMMARY Routine 12/27/2024 3:30 PM EDT RAD ONC ARIA SESSION SUMMARY Routine 12/24/2024 2:51 PM EDT RAD ONC ARIA SESSION SUMMARY Routine 12/23/2024 2:54 PM EDT RAD ONC ARIA SESSION SUMMARY Routine 12/22/2024 2:55 PM EDT RAD ONC ARIA SESSION SUMMARY Routine 2024 3:07 PM EDT RAD ONC ARIA SESSION SUMMARY Routine 12/20/2024 3:22 PM EDT RAD ONC ARIA SESSION SUMMARY Routine 12/17/2024 3:05 PM EDT RAD ONC ARIA SESSION SUMMARY Routine 12/16/2024 3:09 PM EDT RAD ONC ARIA SESSION SUMMARY Routine 12/15/2024 3:04 PM EDT RAD ONC ARIA SESSION SUMMARY Routine 12/14/2024 3:01 PM EDT RAD ONC ARIA SESSION SUMMARY Routine 12/13/2024 3:24 PM EDT RAD ONC ARIA SESSION SUMMARY Routine 12/10/2024 3:13 PM EDT RAD ONC ARIA SESSION SUMMARY Routine 12/09/2024 2:46 PM EDT RAD ONC ARIA SESSION SUMMARY Routine 12/08/2024 2:29 PM EDT RAD ONC ARIA SESSION SUMMARY Routine 12/07/2024 2:54 PM EDT RAD ONC ARIA SESSION SUMMARY Routine 12/06/2024 3:31 PM EDT CBC WITH AUTO DIFFERENTIAL Routine 12/06/2024 COMPREHENSIVE METABOLIC PANEL, PLASMA Routine 12/06/2024 MAGNESIUM, PLASMA Routine 12/06/2024 from Last 3 Months Results * Transfuse RBC (03/02/2025 6:58 PM EDT) Maninder Zhang MD BLOOD TRANSFUSION ORDERABLES Fin al Result * Prepare Leukocyte Reduced RBC: 1 Units (03/02/2025 12:29 PM EDT) Product Code E3212X16 CH BLOO D BANK Dispense Status Transfused BLOOD BANK Blood Expiration Date [id number] BLOOD BANK Unit Number [id number] B LOOD BANK Product Blood Type 6200 BLOOD BANK Blood Type A+ BLOOD BANK Crossmatch Compatible BLOOD BANK Other Maninder Zhang MD BLOOD BANK PRODUCT ORDERABLES Fi nal Result Performing Organization Address [facility]/State/[facility] de Phone Number BLOOD BANK [address] * Type and Screen (03/02/2025 12:00 [...] ORDERABLES F inal Result Performing Organization Address City/[facility]/ZIP Co de Phone Number BLOOD BANK [address] [place] [address], [place] * TSH reflex FT4 (03/02/2025 9:07 AM EDT) Only the most recent of2 resultswithin the time period is included. [facility] Thyroid Stimulating Hormone, Plasma 1.63 0.40 - 4.20 uIU/mL 03/02/2025 9:56 AM EDT [facility] Blood Venous blood specimen / Unknown Venipuncture / Unknown 03/02/2025 9:07 AM EDT 03/02/2025 9:20 AM EDT Maninder Zhang MD LAB BLOOD ORDERABLES Final Resul t Performing Organization Address City/[facility]/ZIP Co de Phone Number [facility] [address] [place] [address] * (ABNORMAL) CBC and differential (03/02/2025 9:07 AM EDT) Only the most recent of5 resultswithin the time period is included. [facility] WBC Count 19.59(H) 3.70 - 10.30 10*3/uL [...] 9:07 AM EDT 03/02/2025 9:21 AM EDT Narrative [facility] - 03/02/2025 11:36 AM EDT Therapeutic decision making should be based on absolute values, rather than percentages. Maninder Zhang MD LAB BLOOD ORDERABLES Final Resul t Performing Organization Address City/[facility]/ZIP Co de Phone Number [facility] [address] [place] [address] * Magnesium (03/02/2025 9:07 AM EDT) Only the most recent of4 resultswithin the time period is included. Magnesium, Plasma 1.9 1.9 - 2.4 mg/dL 03/02/2025 9:56 AM EDT [facility] Blood Venous blood specimen / Unknown Venipuncture / Unknown 03/02/2025 9:07 AM EDT 03/02/2025 9:20 AM EDT Maninder Zhang MD LAB BLOOD ORDERABLES Final Resul t Performing Organization Address City/[facility]/ZIP Co de Phone Number [facility] [address] [place] [address] * (ABNORMAL) Comprehensive metabolic panel (03/02/2025 9:07 AM EDT) Only the most recent of5 resultswithin the time period is included. Glucose, Plasma 232(H) 74 - 99 mg/dL [...] LAB BLOOD ORDERABLES Final Resul t [facility] [address] [place] [address] * CT THORACIC OUTSIDE IMAGES (02/15/2025 8:54 AM EDT) Anatomical Region Laterality Modality Computed Tomogra phy 02/15/2025 8:54 AM EDT us External Provider IMG CT PROCEDURES Final Result * CT MSK OUTSIDE IMAGES (02/15/2025 8:54 AM EDT) Anatomical Region Laterality Modality Computed Tomogra phy 02/15/2025 8:54 AM EDT us External Provider IMG CT PROCEDURES Final Result * Fine needle aspiration (02/09/2025 12:17 PM EDT) Case Report Cytology Case: [id number] Authorizing Provider: Maninder Zhang MD Collected: 02/09/20257 Ordering Location: [facility] Head, Neck & Received: 02/09/2025 1217 Respiratory Pathologist: Margie Garcia MD Specimen: Other, Fine Needle Aspiration (Specify Site), LEFT CHEST NODULE, SUPERFICIAL FINE NEEDLE ASPIRATION 02/11/2025 9:[address] [facility] Final Diagnosis CHEST NODULE, LEFT, SUPERFICIAL FINE NEEDLE ASPIRATION: - SUSPICIOUS FOR MALIGNANCY. SEE COMMENT. 02/11/2025 9:[address] [facility] at 0953 EDT Comment There are several atypical and degenerated squamous cells present, which are suspicious for squamous cell carcinoma. However, in the setting of a cystic lesion (with approximately 4 ml of straw-colored fluid obtained), the epithelial atypia could be reactive/degener ative, rather than neoplastic. 02/11/2025 9:[address] [facility] Immediate Evaluation FNA performed and/or attended during [...] on the report. 02/11/2025 9:54 AM EDT [facility] Clinical History squamous cell lung cancer 02/11/2025 9:54 AM EDT [facility] Procedure Type Superficial 9:54 AM EDT [facility] Size/Descripti on of Lesion Left Chest 02/11/2025 9:54 AM EDT [facility] Cancer History Yes 02/11/2025 9:54 AM EDT [facility] Gross Description A. LEFT CHEST NODULE, SUPERFICIAL FINE NEEDLE ASPIRATION 5 ml's tinted needle rinse fluid processed as Thinprep for complete evaluation of sample. Received 3 diff quick slides and 3 pap slides. 02/11/2025 9:54 AM EDT [facility] Note: A resident was involved in the service. I attest I examined the relevant preparations for the specimens and confirmed the diagnosis or interpretation. 02/11/2025 9:54 AM EDT [facility] Clinical Information C34.12 - Malignant neoplasm of upper lobe of left lung (CMS/HCC) [ICD-10-CM] 02/11/2025 9:54 AM EDT [facility] Fine Needle Aspirate Fine needle biopsy / Unknown Non-blood Collection / Unknown 02/09/2025 12:17 PM EDT 02/09/2025 12:17 PM EDT us Maninder Zhang MD LAB CYTOLOGY ORDERABLES Final Re sult [facility] [address] [place] [address] * (ABNORMAL) Hemoglobin A1c (01/19/2025 8:58 AM EDT) Hemoglobin A1c 6.6(H) <5.7 % 01/19/2025 10:31 AM EDT [facility] Blood Venous blood specimen / Unknown Venipuncture / Unknown 01/19/2025 8:58 AM EDT 01/19/2025 9:35 AM EDT Narrative [facility] - 01/19/2025 10:31 AM EDT HA1C Interpretive Data: Diagnosis of Diabetes: Diabetic > or = 6.5% Pre-diabetic 5.7 to 6.4% Non-diabetic < or = 5.6% Glycemic Targets for Type I and Type II Diabetics: Non- Adults <7.0% Adults <6.0% Children and Adolescents <7.5% Source: [employer]. Standards of medical care in diabetes,2017. Diabetes Care.2017:40 (suppl 1):S1-S135. us Maninder Zhang MD LAB BLOOD ORDERABLES Final Resul t [facility] [address] [place] [address] * CT Chest w IV Contrast (01/10/2025 [...] Zhang MD IMG CT PROCEDURES Final Result * Rad Onc [facility] Course Summary (12/28/2024 3:28 PM EDT) Course ID C2 [facility]COL[facility] Course Intent Concomitant [facility] Course Start Date 11/03/2024 4:15 PM [facility] Course End Date 12/28/2024 3:28 PM [facility] Course First Treatment Date 11/17/2024 12:13 PM [facility] Course Last Treatment Date 12/28/2024 2:52 PM [facility] Course Elapsed Days 41 [facility] Reference Point ID Lung/Mediastinu m [facility] Reference Point Dosage Given to Date 60 Gy [facility] Plan ID Lung/Media [facility] Plan Name Lung/Media [facility] Plan Fractions Treated to Date 30 [facility] Plan Total Fractions Prescribed 30 [facility] Plan Prescribed Dose Per Fraction 2 Gy [facility] Plan Total Prescribed Dose 6,000 CGy [facility] Plan Primary Reference Point Lung/Mediastinu m [facility] 12/28/2024 3:28 PM EDT Physician Radiation Oncology RADIATION ONCOLO GY ORDERABLES Final Result [facility] * Rad Onc [facility] Session Summary (12/28/2024 3:00 PM EDT) Course ID C2 [facility] Course Intent Concomitant [facility] Course Start Date 11/03/2024 4:15 PM [facility] Course First Treatment Date 11/17/2024 12:13 PM [facility] Course Last Treatment Date 12/28/2024 2:52 PM [facility] Course Elapsed Days 41 [facility] Reference Point ID Lung/Mediastinu m [facility] Reference Point Dosage Given to Date 60 Gy [facility] Reference Point Session Dosage Given 2 Gy [facility] Plan ID Lung/Media [facility] Plan Name Lung + Mediastinum [facility] Plan Fractions Treated to Date 30 [facility] Plan Total Fractions Prescribed 30 [facility]COL[facility] Plan Prescribed Dose Per Fraction 2 Gy [facility] Plan Total Prescribed Dose 6,000 CGy [facility] Plan Primary Reference Point Lung/Mediastinu m [facility] 12/28/2024 3:00 PM EDT Physician Radiation Oncology RADIATION ONCOLO GY ORDERABLES Final Result [facility] * Rad Onc [facility] Session Summary (12/27/2024 3:30 PM EDT) Course ID C2 [facility] Course Intent Concomitant [facility] Course Start Date 11/03/2024 4:15 PM [facility] Course First Treatment Date 11/17/2024 12:13 PM [facility] Course Last Treatment Date 12/27/2024 3:21 PM [facility] Course Elapsed Days 40 [facility] Reference Point ID Lung/Mediastinu m [facility] Reference Point Dosage Given to Date 58 Gy [facility] Reference Point Session Dosage Given 2 Gy [facility] Plan ID Lung/Media [facility] Plan Name Lung + Mediastinum [facility] Plan Fractions Treated to Date 29 [facility] Plan Total Fractions Prescribed 30 [facility]COL[facility] Plan Prescribed Dose Per Fraction 2 Gy [facility] Plan Total Prescribed Dose 6,000 CGy [facility] Plan Primary Reference Point Lung/Mediastinu m [facility] 12/27/2024 3:30 PM EDT Physician Radiation Oncology RADIATION ONCOLO GY ORDERABLES Final Result [facility] * Rad Onc [facility] Session Summary (12/24/2024 2:51 PM EDT) Course ID C2 [facility] Course Intent Concomitant [facility]COL[facility] Course Start Date 11/03/2024 4:15 PM [facility] Course First Treatment Date 11/17/2024 12:13 PM [facility] Course Last Treatment Date 12/24/2024 2:42 PM [facility] Course Elapsed Days 37 [facility] Reference Point ID Lung/Mediastinu m [facility] Reference Point Dosage Given to Date 56 Gy [facility] Reference Point Session Dosage Given 2 Gy [facility] Plan ID Lung/Media [facility] Plan Name Lung + Mediastinum [facility] Plan Fractions Treated to Date 28 [facility] Plan Total Fractions Prescribed 30 [facility] Plan Prescribed Dose Per Fraction 2 Gy [facility] Plan Total Prescribed Dose 6,000 CGy [facility] Plan Primary Reference Point Lung/Mediastinu m [facility] 12/24/2024 2:51 PM EDT Physician Radiation Oncology RADIATION ONCOLO GY ORDERABLES Final Result [facility] * Rad Onc [facility] Session Summary (12/23/2024 2:54 PM EDT) Course ID C2 [facility] Course Intent Concomitant [facility]COL[facility] Course Start Date 11/03/2024 4:15 PM [facility] Course First Treatment Date 11/17/2024 12:13 PM [facility] Course Last Treatment Date 12/23/2024 2:45 PM [facility] Course Elapsed Days 36 [facility] Reference Point ID Lung/Mediastinu m [facility] Reference Point Dosage Given to Date 54 Gy [facility] Reference Point Session Dosage Given 2 Gy [facility] Plan ID Lung/Media [facility] Plan Name Lung + Mediastinum [facility] Plan Fractions Treated to Date 27 [facility] Plan Total Fractions Prescribed 30 [facility] Plan Prescribed Dose Per Fraction 2 Gy [facility] Plan Total Prescribed Dose 6,000 CGy [facility] Plan Primary Reference Point Lung/Mediastinu m [facility] 12/23/2024 2:54 PM EDT Physician Radiation Oncology RADIATION ONCMELANY GY ORDERABLES Final Result [facility] * Rad Onc [facility] Session Summary (12/22/2024 2:55 PM EDT) Course ID C2 [facility] Course Intent Concomitant [facility]COL[facility] Course Start Date 11/03/2024 4:15 PM [facility] Course First Treatment Date 11/17/2024 12:13 PM [facility] Course Last Treatment Date 12/22/2024 2:46 PM [facility] Course Elapsed Days 35 [facility] Reference Point ID Lung/Mediastinu m [facility] Reference Point Dosage Given to Date 52 Gy [facility] Reference Point Session Dosage Given 2 Gy [facility] Plan ID Lung/Media [facility] Plan Name Lung + Mediastinum [facility] Plan Fractions Treated to Date 26 [facility] Plan Total Fractions Prescribed 30 [facility] Plan Prescribed Dose Per Fraction 2 Gy [facility] Plan Total Prescribed Dose 6,000 CGy [facility] Plan Primary Reference Point Lung/Mediastinu m [facility] 12/22/2024 2:55 PM EDT Physician Radiation Oncology RADIATION ONCMELANY GY ORDERABLES Final Result [facility] * Rad Onc [facility] Session Summary (2024 3:07 PM EDT) Course ID C2 [facility] Course Intent Concomitant [facility]COL[facility] Course Start Date 11/03/2024 4:15 PM [facility] Course First Treatment Date 11/17/2024 12:13 PM [facility] Course Last Treatment Date 2024 2:57 PM [facility] Course Elapsed Days 34 [facility] Reference Point ID Lung/Mediastinu m [facility] Reference Point Dosage Given to Date 50 Gy [facility] Reference Point Session Dosage Given 2 Gy [facility] Plan ID Lung/Media [facility] Plan Name Lung + Mediastinum [facility] Plan Fractions Treated to Date 25 [facility] Plan Total Fractions Prescribed 30 [facility] Plan Prescribed Dose Per Fraction 2 Gy [facility] Plan Total Prescribed Dose 6,000 CGy [facility] Plan Primary Reference Point Lung/Mediastinu m [facility] 2024 3:07 PM EDT Physician Radiation Oncology MD RADIATION ONCOLO GY ORDERABLES Final Result [facility] * Rad Onc [facility] Session Summary (12/20/2024 3:22 PM EDT) Course ID C2 [facility] Course Intent Concomitant [facility]COL[facility] Course Start Date 11/03/2024 4:15 PM [facility] Course First Treatment Date 11/17/2024 12:13 PM [facility] Course Last Treatment Date 12/20/2024 3:13 PM [facility] Course Elapsed Days 33 [facility] Reference Point ID Lung/Mediastinu m [facility] Reference Point Dosage Given to Date 48 Gy [facility] Reference Point Session Dosage Given 2 Gy [facility] Plan ID Lung/Media [facility] Plan Name Lung + Mediastinum [facility] Plan Fractions Treated to Date 24 [facility] Plan Total Fractions Prescribed 30 [facility] Plan Prescribed Dose Per Fraction 2 Gy [facility] Plan Total Prescribed Dose 6,000 CGy [facility] Plan Primary Reference Point Lung/Mediastinu m [facility] 12/20/2024 3:22 PM EDT Physician Radiation Oncology RADIATION ONCOLO GY ORDERABLES Final Result [facility] * Rad Onc [facility] Session Summary (12/17/2024 3:05 PM EDT) Course ID C2 [facility] Course Intent Concomitant [facility] Course Start Date 11/03/2024 4:15 PM [facility] Course First Treatment Date 11/17/2024 12:13 PM [facility] Course Last Treatment Date 12/17/2024 2:56 PM [facility] Course Elapsed Days 30 [facility] Reference Point ID Lung/Mediastinu m [facility] Reference Point Dosage Given to Date 46 Gy [facility] Reference Point Session Dosage Given 2 Gy [facility] Plan ID Lung/Media [facility] Plan Name Lung + Mediastinum [facility] Plan Fractions Treated to Date 23 [facility]ATION [facility]COLOG[facility] Plan Total Fractions Prescribed 30 [facility]ATION [facility]COLOG[facility] Plan Prescribed Dose Per Fraction 2 Gy [facility]ATION [facility]COL[facility] Plan Total Prescribed Dose 6,000 CGy [facility]COL[facility] Plan Primary Reference Point Lung/Mediastinu m [facility] 12/17/2024 3:05 PM EDT Physician Radiation Oncology RADIATION ONCOLO GY ORDERABLES Final Result [facility] * Rad Onc [facility] Session Summary (12/16/2024 3:09 PM EDT) Course ID C2 [facility] Course Intent Concomitant [facility]COL[facility] Course Start Date 11/03/2024 4:15 PM [facility] Course First Treatment Date 11/17/2024 12:13 PM [facility] Course Last Treatment Date 12/16/2024 2:59 PM [facility] Course Elapsed Days 29 [facility] Reference Point ID Lung/Mediastinu m [facility] Reference Point Dosage Given to Date 44 Gy [facility] Reference Point Session Dosage Given 2 Gy [facility] Plan ID Lung/Media [facility] Plan Name Lung + Mediastinum [facility] Plan Fractions Treated to Date 22 [facility] Plan Total Fractions Prescribed 30 [facility]ATION [facility]COLOG[facility] Plan Prescribed Dose Per Fraction 2 Gy [facility]ATION [facility]COL[facility] Plan Total Prescribed Dose 6,000 CGy [facility]ATION [facility]COLOG[facility] Plan Primary Reference Point Lung/Mediastinu m [facility] 12/16/2024 3:09 PM EDT Physician Radiation Oncology RADIATION ONCOLO GY ORDERABLES Final Result [facility] * Rad Onc [facility] Session Summary (12/15/2024 3:04 PM EDT) Course ID C2 [facility]COL[facility] Course Intent Concomitant [facility]COLOG[facility] Course Start Date 11/03/2024 4:15 PM [facility] Course First Treatment Date 11/17/2024 12:13 PM [facility] Course Last Treatment Date 12/15/2024 2:55 PM [facility] Course Elapsed Days 28 [facility] Reference Point ID Lung/Mediastinu m [facility] Reference Point Dosage Given to Date 42 Gy [facility] Reference Point Session Dosage Given 2 Gy [facility] Plan ID Lung/Media [facility] Plan Name Lung + Mediastinum [facility] Plan Fractions Treated to Date 21 [facility]COLOG[facility] Plan Total Fractions Prescribed 30 [facility] Plan Prescribed Dose Per Fraction 2 Gy [facility]ATION [facility]COL[facility] Plan Total Prescribed Dose 6,000 CGy [facility]COL[facility] Plan Primary Reference Point Lung/Mediastinu m [facility] 12/15/2024 3:04 PM EDT Physician Radiation Oncology RADIATION ONCOLO GY ORDERABLES Final Result [facility] * Rad Onc [facility] Session Summary (12/14/2024 3:01 PM EDT) Course ID C2 [facility] Course Intent Concomitant [facility]COLOG[facility] Course Start Date 11/03/2024 4:15 PM [facility] Course First Treatment Date 11/17/2024 12:13 PM [facility] Course Last Treatment Date 12/14/2024 2:52 PM [facility] Course Elapsed Days 27 [facility] Reference Point ID Lung/Mediastinu m [facility] Reference Point Dosage Given to Date 40 Gy [facility] Reference Point Session Dosage Given 2 Gy [facility] Plan ID Lung/Media [facility] Plan Name Lung + Mediastinum [facility] Plan Fractions Treated to Date 20 [facility]ATION [facility]COLOG[facility] Plan Total Fractions Prescribed 30 [facility]ATION [facility]COLOG[facility] Plan Prescribed Dose Per Fraction 2 Gy [facility]ATION [facility]COLOG[facility] Plan Total Prescribed Dose 6,000 CGy [facility]ATION [facility]COLOG[facility] Plan Primary Reference Point Lung/Mediastinu m [facility] 12/14/2024 3:01 PM EDT Physician Radiation Oncology MD RADIATION ONCOLO GY ORDERABLES Final Result [facility]OG[facility] * Rad Onc [facility] Session Summary (12/13/2024 3:24 PM EDT) Course ID C2 [facility] Course Intent Concomitant [facility]COLOG[facility] Course Start Date 11/03/2024 4:15 PM [facility] Course First Treatment Date 11/17/2024 12:13 PM [facility] Course Last Treatment Date 12/13/2024 3:16 PM [facility] Course Elapsed Days 26 [facility] Reference Point ID Lung/Mediastinu m [facility] Reference Point Dosage Given to Date 38 Gy [facility] Reference Point Session Dosage Given 2 Gy [facility] Plan ID Lung/Media [facility] Plan Name Lung + Mediastinum [facility] Plan Fractions Treated to Date 19 [facility]ATION [facility]COLOG[facility] Plan Total Fractions Prescribed 30 [facility]ATION [facility]COLOG[facility] Plan Prescribed Dose Per Fraction 2 Gy [facility]ATION [facility]COLOG[facility] Plan Total Prescribed Dose 6,000 CGy [facility]ATION [facility]COLOG[facility] Plan Primary Reference Point Lung/Mediastinu m [facility]COL[facility] 12/13/2024 3:24 PM EDT Physician Radiation Oncology RADIATION ONCOLO GY ORDERABLES Final Result [facility]ATION [facility]COLOG[facility] * Rad Onc [facility] Session Summary (12/10/2024 3:13 PM EDT) Course ID C2 [facility] Course Intent Concomitant [facility]COLOG[facility] Course Start Date 11/03/2024 4:15 PM [facility] Course First Treatment Date 11/17/2024 12:13 PM [facility] Course Last Treatment Date 12/10/2024 3:04 PM [facility] Course Elapsed Days 23 [facility] Reference Point ID Lung/Mediastinu m [facility] Reference Point Dosage Given to Date 36 Gy [facility] Reference Point Session Dosage Given 2 Gy [facility] Plan ID Lung/Media [facility] Plan Name Lung + Mediastinum [facility] Plan Fractions Treated to Date 18 [facility]ATION [facility]COLOG[facility] Plan Total Fractions Prescribed 30 [facility]ATION [facility]COLOG[facility] Plan Prescribed Dose Per Fraction 2 Gy [facility]ATION [facility]COLOG[facility] Plan Total Prescribed Dose 6,000 CGy [facility]ATION [facility]COLOG[facility] Plan Primary Reference Point Lung/Mediastinu m [facility]COL[facility] 12/10/2024 3:13 PM EDT Physician Radiation Oncology RADIATION ONCOLO GY ORDERABLES Final Result [facility] * Rad Onc [facility] Session Summary (12/09/2024 2:46 PM EDT) Course ID C2 [facility] Course Intent Concomitant [facility]COLOG[facility] Course Start Date 11/03/2024 4:15 PM [facility] Course First Treatment Date 11/17/2024 12:13 PM [facility] Course Last Treatment Date 12/09/2024 2:37 PM [facility] Course Elapsed Days 22 [facility] Reference Point ID Lung/Mediastinu m [facility] Reference Point Dosage Given to Date 34 Gy [facility] Reference Point Session Dosage Given 2 Gy [facility] Plan ID Lung/Media [facility] Plan Name Lung + Mediastinum [facility] Plan Fractions Treated to Date 17 [facility]COLOG[facility] Plan Total Fractions Prescribed 30 [facility]ATION [facility]COLOG[facility] Plan Prescribed Dose Per Fraction 2 Gy [facility]ATION [facility]COLOG[facility] Plan Total Prescribed Dose 6,000 CGy [facility]ATION ONCOLOG[facility] Plan Primary Reference Point Lung/Mediastinu m [facility] 12/09/2024 2:46 PM EDT Physician Radiation Oncology RADIATION ONCOLO GY ORDERABLES Final Result [facility] * Rad Onc [facility] Session Summary (12/08/2024 2:29 PM EDT) Course ID C2 [facility]COL[facility] Course Intent Concomitant [facility]COLOG[facility] Course Start Date 11/03/2024 4:15 PM [facility] Course First Treatment Date 11/17/2024 12:13 PM [facility] Course Last Treatment Date 12/08/2024 2:20 PM [facility] Course Elapsed Days 21 [facility] Reference Point ID Lung/Mediastinu m [facility] Reference Point Dosage Given to Date 32 Gy [facility] Reference Point Session Dosage Given 2 Gy [facility] Plan ID Lung/Media [facility] Plan Name Lung + Mediastinum [facility] Plan Fractions Treated to Date 16 [facility]ATION [facility]COLOG[facility] Plan Total Fractions Prescribed 30 [facility]ATION [facility]COLOG[facility] Plan Prescribed Dose Per Fraction 2 Gy [facility]ATION [facility]COLOG[facility] Plan Total Prescribed Dose 6,000 CGy [facility]ATION [facility]COLOG[facility] Plan Primary Reference Point Lung/Mediastinu m [facility] 12/08/2024 2:29 PM EDT Physician Radiation Oncology RADIATION ONCOLO GY ORDERABLES Final Result [facility] * Rad Onc [facility] Session Summary (12/07/2024 2:54 PM EDT) Course ID C2 [facility] Course Intent Concomitant [facility]COLOG[facility] Course Start Date 11/03/2024 4:15 PM [facility] Course First Treatment Date 11/17/2024 12:13 PM [facility] Course Last Treatment Date 12/07/2024 2:45 PM [facility] Course Elapsed Days 20 [facility] Reference Point ID Lung/Mediastinu m [facility] Reference Point Dosage Given to Date 30 Gy [facility] Reference Point Session Dosage Given 2 Gy [facility]COLOG[facility] Plan ID Lung/Media [facility] Plan Name Lung + Mediastinum [facility] Plan Fractions Treated to Date 15 [facility]ATION [facility]COLOG[facility] Plan Total Fractions Prescribed 30 [facility]ATION [facility]COLOG[facility] Plan Prescribed Dose Per Fraction 2 Gy [facility]ATION [facility]COLOG[facility] Plan Total Prescribed Dose 6,000 CGy [facility]ATION [facility]COLOG[facility] Plan Primary Reference Point Lung/Mediastinu m [facility] 12/07/2024 2:54 PM EDT Physician Radiation Oncology RADIATION ONCOLO GY ORDERABLES Final Result [facility]COL[facility] * Rad Onc [facility] Session Summary (12/06/2024 3:31 PM EDT) Course ID C2 [facility]COL[facility] Course Intent Concomitant [facility]COL[facility] Course Start Date 11/03/2024 4:15 PM [facility] Course First Treatment Date 11/17/2024 12:13 PM [facility] Course Last Treatment Date 12/06/2024 3:22 PM [facility] Course Elapsed Days 19 [facility] Reference Point ID Lung/Mediastinu m [facility] Reference Point Dosage Given to Date 28 Gy [facility] Reference Point Session Dosage Given 2 Gy [facility]COLOG[facility] Plan ID Lung/Media [facility] Plan Name Lung + Mediastinum [facility] Plan Fractions Treated to Date 14 [facility]IATION [facility]COLOG[facility] Plan Total Fractions Prescribed 30 [facility] RADIATION ONCOLOG[facility] Plan Prescribed Dose Per Fraction 2 Gy [facility]IATION ONCOLOG[facility] Plan Total Prescribed Dose 6,000 CGy [facility]IATION ONCOLOG[facility] Plan Primary Reference Point Lung/Mediastinu m [facility]ATION [facility]COLOG[facility] 12/06/2024 3:31 PM EDT Physician Radiation Oncology RADIATION ONCOLO GY ORDERABLES Final Result [facility] from Last 3 Months Insurance [facility] MEDICAID Care Teams Bottle Line Worker Relationship Specialty Start Date End Date Constantine Stiles APRN [address] [place] [id number] PCP - General 01/21/23 Farhat Gómez MD [address] [place] [address] [id number] [place] [address] Consulting Physician Radiation Oncology 10/27/24
--- OUTSIDE RECORDS SUMMARY | 2025-03-08 13:09 | XMS_ITS | Encounter Summary ---
Author Organization Healthcare Address [address] [place] [address] Care Team Providers Care Health Facilities Surveyor Name Role Phone Constantine Stiles APRN Primary Care Provider [phone] Farhat Gómez MD Unavailable Encounter Details Date Type Department Care Team (Latest Contact Info) Description 01/12/2025 Travel Social History Tobacco Use Types Packs/Day Years [...] Info) Description 03/23/2025 8:30 AM EDT Appointment [facility] [address], [address]nd [place] [address] 03/23/2025 10:30 AM EDT Clinical Support [facility] [address] [facility] 2nd [place] [address] 03/23/2025 11:00 AM EDT Office Visit [facility] 800 [facility], 2nd [place] [address] Maninder Zhang MD [address] [place] [address] 03/23/2025 12:00 PM EDT Appointment [facility] [address] [place] [address] documented as of this encounter Visit Diagnoses Not on filedocumented in this encounter Additional Health Concerns Assessment Noted Time A fall risk assessment has been complete d for the patient 01/12/2025 10:35 AM EDT A Body Mass Index follow-up plan has been documented for the patient 12/15/2024 4:25 PM EDT documented as of this encounter Care Teams Health Facilities Surveyor Relationship Specialty Start Date End Date Constantine Stiles APRN [address] [place] [address] PCP - General 01/21/23 Farhat Gómez MD [address] [facility] [address] [place] [address] Consulting Physician Radiation Oncology 10/27/24 documented as of this encounter
--- OUTSIDE RECORDS SUMMARY | 2025-03-08 13:09 | XMS_ITS | Encounter Summary ---
Author Organization [facility] Address [address] [place] [address] Care Team Providers Care Boat Officer Name Role Phone Constatnine Stiles DIMA Primary Care Provider [phone] Farhat Gómez MD Unavailable Encounter Details Date Type Department Care Team ([facility] st Contact Info) Description 01/13/2025 Telephone [facility] [address]nd [place] [address] Tiffany Rosario, RN Social History Tobacco Use Types Packs/Day Years [...] as of this encounter Miscellaneous Notes * Telephone Encounter - Tiffany Rosario RN - 01/13/2025 10:10 AM EDT RN called and spoke with patient to see if he could come in a little early on 01/19 to get his labs and a Guardant. Patient stated that was fine and he would come in early to get his labs done. documented in this encounter Plan of Treatment Upcoming Encounters Date Type Department Care Team (Late st Contact Info) Description 03/23/2025 8:30 AM EDT Appointment [facility] [address], [address]nd [place] [address] 03/23/2025 10:30 AM EDT Clinical Support [facility] [address] [facility], 2nd [place] [address] 03/23/2025 11:00 AM EDT Office Visit [facility] [address] [facility], 2nd [place] [address] Maninder Zhang MD [address] [facility] Shannan Ramirezrickson [facility] [address] [place] [address] 03/23/2025 12:00 PM EDT Appointment [facility] 800 [place] [address] documented as of this encounter Visit Diagnoses Not on filedocumented in this encounter Additional Health Concerns Assessment Noted Time A fall risk assessment has been complete d for the patient 01/12/2025 10:35 AM EDT A Body Mass Index follow-up plan has been documented for the patient 12/15/2024 4:25 PM EDT documented as of this encounter Care Teams Boat Officer Relationship Specialty Start Date End Date Constantine Stiles APRN [address] [place] [address] PCP - General 01/21/23 Farhat Gómez MD [address] [facility] [address] [place] [address] Consulting Physician Radiation Oncology 10/27/24 documented as of this encounter
--- OUTSIDE RECORDS SUMMARY | 2025-03-08 13:09 | XMS_ITS | Encounter Summary ---
Author Organization Healthcare Address [address] [place] [address] Care Team Providers Care Hot Roll Inspector Name Role Phone Constantine Stiles DIMA Primary Care Provider [phone] Lars Dalton MD Unavailable Farhat Gómez MD Unavailable Encounter Details Date Type Department Care Team (Late Contact Info) Description 02/28/2023 Orders Only External Location [address] [place] [address] Provider, External Social History Tobacco Use Types Packs/Day Years Used Date Smoking Tobacco: Every Day Cigarettes Smokeless Tobacco: Never Alcohol Use Standard Drinks/Week Comments Never 0 (1 standard drink = 0.6 oz pur e alcohol) Sex and Gender Information Value Date Recorded Sex Assigned at Not on file Legal Sex Male 10:53 AM EDT Gender Identity Not on file Sexual Orientation Not on file documented as of this encounter Plan of Treatment Upcoming Encounters Date Type Department Care Team (Late Contact Info) Description 03/23/2025 8:30 AM EDT Appointment [facility] [address], [address] [place] [address] 03/23/2025 10:30 AM EDT Clinical Support [facility] [address] [address] 03/23/2025 11:00 AM EDT Office Visit [facility] [address] [phone] Maninder Zhang MD 800 [facility] Shannan Dubois [facility] [address] [place] [address] 03/23/2025 12:00 PM EDT Appointment [facility] 800 [place] [phone] documented as of this encounter Procedures Procedure Name Priority Date/Time Associated Diagnosis Comments MR OUTSIDE IMAGES 02/28/2023 1:58 PM EDT documented in this encounter Results * MR transfer of outside films (02/28/2023 1:58 PM EDT) Anatomical Region Laterality Modality Magnetic Resonan ce 02/28/2023 1:58 PM EDT us External Provider IMG MRI PROCEDURES Final Resul t documented in this encounter Visit Diagnoses Not on filedocumented in this encounter Care Teams Hot Roll Inspector Relationship Specialty Start Date End Date Constantine Stiles APRN [address] [place] [address] PCP - General 01/21/23 Lars Dalton MD 800 [facility] [address] [place] [address] Consulting Physician Radiation Oncology 03/08/24 Farhat Gómez MD 800 [facility] [address] [place] [address] Consulting Physician Radiation Oncology 10/27/24 documented as of this encounter
--- OUTSIDE RECORDS SUMMARY | 2025-03-08 13:09 | XMS_ITS | Referral Summary ---
Author Organization [employer] [facility] Address [address] [place] [address] Care Team Providers Care Spring Coiling Machine Setter Name Role Phone Unavailable Primary Care Provider Unavailabl e Social History Tobacco Use Types Packs/Day Years Used Date Smoking Tobacco: Never Assessed Interpersonal Safety Answer Date Record ed Family or friends hurt you Not on file 01/18 Family or friends insult you Not on file 02/2024 Family or friends threaten you Not on file 0 01/19/2024 Family or friends scream or curse at you Not on file 01/19/2024 Food Insecurity Answer Date Recorded Food run out past 12 months Not on file 02/2024 Food did not last past 12 months Not on file 01/19/2024 Employment Answer Date Recorded Help finding and keeping a job Not on file 0 01/19/2024 Family and Community Support Answer Diogenes e Recorded Help with Day to Day Activities Not on file 01/19/2024 Feeling Lonely or Isolated Not on file 01/18 Educational Attainment Answer Date Doug rded Speak language other than Mexican at home Not on file 01/19/2024 Want help with school or training Not on file 01/19/2024 Depression Answer Date Recorded PHQ-2 Risk Not on file 01/19/2024 Disabilities Answer Date Recorded Difficulty concentrating Not on file 024 Difficulty doing errands alone Not on file 0 01/19/2024 Substance Use Answer Date Recorded Used prescription meds for non-medical reasons N ot on file 01/19/2024 Used illegal drugs past 12 months Not on file 01/19/2024 Sex and Gender Information Value Date Recorded Sex Assigned at Not on file Legal Sex Male 11:53 AM CDT Gender Identity Not on file Sexual Orientation Not on file Plan of Treatment Not on file
--- OUTSIDE RECORDS SUMMARY | 2025-03-08 13:09 | XMS_ITS | Encounter Summary ---
Author Organization Healthcare Address [address] [place] [address] Care Team Providers Care Back Stayer Name Role Phone Constantine Stiles APRN Primary Care Provider [phone] Farhat Gómez MD Unavailable Encounter Details Date Type Department Care Team (Latest Contact Info) Description 01/10/2025 Travel Social History Tobacco Use Types Packs/Day [...] Info) Description 03/23/2025 8:30 AM EDT Appointment [facility] [address], [address]nd [place] [address] 03/23/2025 10:30 AM EDT Clinical Support [facility] 800 [facility] 2nd [place] [address] 03/23/2025 11:00 AM EDT Office Visit [facility] 800 [facility], 2nd [place] [phone] Maninder Zhang MD [address] [place] [address] 03/23/2025 12:00 PM EDT Appointment [facility] [address] [place] [address] documented as of this encounter Visit Diagnoses Not on filedocumented in this encounter Additional Health Concerns Assessment Noted Time A fall risk assessment has been complete d for the patient 12/27/2024 3:32 PM EDT A Body Mass Index follow-up plan has been documented for the patient 12/15/2024 4:25 PM EDT documented as of this encounter Care Teams Back Stayer Relationship Specialty Start Date End Date Constantine Stiles APRN [address] [place] [address] PCP - General 01/21/23 Farhat Gómez MD [address] [facility] [address] [place] [address] Consulting Physician Radiation Oncology 10/27/24 documented as of this encounter
--- OUTSIDE RECORDS SUMMARY | 2025-03-08 13:09 | XMS_ITS | Clinical Summary ---
Author Organization [facility] Address [address] [place] [address] Care Team Providers Care Rail Maintenance Worker Name Role Phone Unavailable Primary Care Provider [...] Date Doug rded Speak language other than Maltese at home Not on file 01/19/2024 Want [...] Orientation Not on file Plan of Treatment Health Maintenance Due Date Last Done Comments CT Colonography 1963 Colonoscopy 1963 Colorectal Cancer Screening 1963 FOBT/FIT 1963 Fit-DNA (Cologuard) 1963 Sigmoidoscopy 1963 Depression Screening (12+) 1975 Tobacco Cessation Counseling and Screening (12+) 1975 HIV Screening 12/20/1978 Hepatitis C Screening 12/20/1981 DTAP/TDAP/TD VACCINES (1 - Tdap) 12/20/1982 Lipid Panel 12/20/1998 Pneumococcal 50+ years (1 of 1 - PCV) 12/20/2013 Shingles Vaccine (Zoster) (1 of 2) 12/20/2013 COVID-19 VACCINE (3 - season) 2024, 11/09/2020 Influenza Vaccine (Season Ended) 2025 Respiratory Syncytial Virus (RSV) Adult or (1 - 1-dose 75+ series) 12/20/2038
--- OUTSIDE RECORDS SUMMARY | 2025-03-08 13:09 | XMS_ITS | Encounter Summary ---
Author Organization Healthcare Address [address] [place] [place] [address] Care Team Providers Care Low Pressure Boiler Operator Name Role Phone Constantine Stiles APRN Primary Care Provider [phone] Farhat Gómez MD Unavailable Encounter Details Date Type Department Care Team (Latest Contact Info) Description 01/19/2025 Travel Social History Tobacco Use Types Packs/Day [...] Info) Description 03/23/2025 8:30 AM EDT Appointment [facility] [address], [address]nd [place] [address] 03/23/2025 10:30 AM EDT Clinical Support [facility] [address] [facility] 2nd [place] [address] 03/23/2025 11:00 AM EDT Office Visit [facility] 800 [facility], 2nd [place] [address] Maninder Zhang MD [address] [place] [address] 03/23/2025 12:00 PM EDT Appointment [facility] [address] [place] [address] documented as of this encounter Visit Diagnoses Not on filedocumented in this encounter Additional Health Concerns Assessment Noted Time A fall risk assessment has been complete d for the patient 01/19/2025 9:13 AM EDT A Body Mass Index follow-up plan has been documented for the patient 01/19/2025 4:11 PM EDT documented as of this encounter Care Teams Low Pressure Boiler Operator Relationship Specialty Start Date End Date Constantine Stiles APRN [address] [place] [address] PCP - General 01/21/23 Farhat Gómez MD [address] [facility] [address] [place] [address] Consulting Physician Radiation Oncology 10/27/24 documented as of this encounter
--- OUTSIDE RECORDS SUMMARY | 2025-03-08 13:09 | XMS_ITS | Encounter Summary ---
Author Organization Healthcare Address [address] [place] [address] Care Team Providers Care Clinical Business Manager Name Role Phone Constantine Stiles DIMA Primary Care Provider [phone] Lars Dalton MD Unavailable Farhat Gómez MD Unavailable Encounter Details Date Type Department Care Team (Late st Contact Info) Description 04/27/2022 Orders Only External Location [address] [place] [address] Adria Eldridge MD [address] [place] [address] Social History Tobacco Use Types Packs/Day Years Used Date Smoking Tobacco: Never Assessed Sex and Gender Information Value Date Recorded Sex Assigned at Not on file Legal Sex Male 10:53 AM EDT Gender Identity Not on file Sexual Orientation Not on file documented as of this encounter Plan of Treatment Upcoming Encounters Date Type Department Care Team (Late Contact Info) Description 03/23/2025 8:30 AM EDT Appointment [facility] [address] [place] [address] 03/23/2025 10:30 AM EDT Clinical Support [facility] 800 [facility], [address] [place] [address] 03/23/2025 11:00 AM EDT Office Visit Pav [facility] 800 [facility], 2nd [place] [address] Maninder Zhang MD 800 [facility] Shannan Dubois [facility] [address] [place] [address] 03/23/2025 12:00 PM EDT Appointment [facility] 800 [place] [address] documented as of this encounter Procedures Procedure Name Priority Date/Time Associated Diagnosis Comments MR OUTSIDE IMAGES 04/27/2022 10:40 AM EDT documented in this encounter Results * MR transfer of outside films (04/27/2022 10:40 AM EDT) Anatomical Region Laterality Modality Magnetic Resonan ce 04/27/2022 10:4 0 AM EDT Adria Eldridge MD IMG MRI PROCEDURES Final Res ult documented in this encounter Visit Diagnoses Not on filedocumented in this encounter Care Teams Clinical Business Manager Relationship Specialty Start Date End Date Constantine Stiles APRN [address] [phone] PCP - General 01/21/23 Lars Dalton MD 800 [facility] [address] [place] [address] Consulting Physician Radiation Oncology 03/08/24 Farhat Gómez MD 800 [facility] [address] [place] [address] Consulting Physician Radiation Oncology 10/27/24 documented as of this encounter
--- OUTSIDE RECORDS SUMMARY | 2025-03-08 13:10 | XMS_ITS ---
Author Organization [facility] Address [address] 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 General Blood Administration for Outpatient (One Time)* Plan Start Date: 03/02/2025 Plan Provider:Maninder Zhang MD Linked Problems Malignant neoplasm of upper lobe of left lung (CMS/HCC) Treatment Medications No medications scheduled. 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) Treatment Medications Current Day (Day 1 , Cycle 4 - Planned for 03/23/2025) CARBOplatin (Paraplatin)CARB Oplatin (Paraplatin) IVPB (by AUC: GOG-COCKCROFT GAULT)PACLitaxel (Taxol) IVPB 500 mLpembrolizumab (Keytruda) CARBOplatin (Paraplatin) 660 mg in sodiu m chloride 0.9 % 250 mL IVPBpembrolizumab (Keytruda) 200 mg in sodium chloride 0.9% 100 mL IVPB Past Treatment and Therapy Plans Oncology Treatment Plan Name Start Date Discontinue Date Treatment Medications Discontinue Reason Plan Provider Cycles PACLItaxel / CARBOplatin + XRT Every 7 Days 5 12/28/2024 CARBOplatin (Paraplatin) chemo IVPB (by AUC: GOG-COCKCROFT GAULT)PACLitax el (Taxol) IVPB 100 mL Therapy Complete Maninder Zhang MD 6 of 6 cycles started Current Radiation Episodes * VMAT: Not Applicable LungOverview* First Treatment Date Latest Treatment Date Treatment Site Technique Goal Episode Provider 11/17/2024 12/28/2024 Lung VMAT Curative * Linked Problems 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 Treatment Courses* Course C2 11/17/2024 - 12/28/2024 Treatment Period Fraction Dose Fractions Total Dose Plans Planned Lung/Media 11/17/2024 - 12/28/2024 200 cGy 30 6 ,000 cGy Reference Points Delivered Lung/Mediastinum 11/17/2024 - 12/28/2024 6,000 cGy Past Radiation Episodes * SBRT: Left LungOverview* First Treatment Date Last Treatment Date Treatment Site Technique Goal Episode Provider 04/14/2024 11/09/2024 Left Lung SBRT Curative * Linked Problems 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 Treatment Courses* Course IMRT QA 11/09/2024 - 11/09/2024 Treatment Period Fraction Dose Fractions Total Dose Plans Planned LeftLung SBRT 11/09/2024 - 11/09/2024 3,000 cGy 0 / 1 3,000 cGy Lung/Media 11/09/2024 - 11/09/2024 180 cGy 0 1 80 cGy Reference Points Delivered Verification 11/09/2024 - 11/09/2024 0 cGy Verification1 11/09/2024 - 11/09/2024 0 cGy * Course C1 04/14/2024 - 04/14/2024 Treatment Period Fraction Dose Fractions Total Dose Plans Planned LeftLung SBRT 04/14/2024 - 04/14/2024 3,000 cGy 1 3,000 cGy Reference Points Delivered Left Lung SBRT 04/14/2024 - 04/14/2024 3,000 cGy Lifetime Dose Tracking * Chemical Lifetime Dose Automatic Entry Manual Entr y Fluoro Time 7.518 minutes 7.518 minutes 0 minutes Air Kerma 179.056 mGy 179.056 mGy 0 mGy
--- OUTSIDE RECORDS SUMMARY | 2025-03-08 13:10 | XMS_ITS | Encounter Summary ---
Author Organization Healthcare Address [address] [place] [address] Care Team Providers Care Transportation Program Director Name Role Phone Constantine Stiles Dejon CH Primary Care Provider [phone] Farhat Gómez MD Unavailable Encounter Details Date Type Department Care Team (Late Contact Info) Description 02/15/2025 Orders Only External Location 800 [place] [address] Provider, External Social History Tobacco Use Types [...] Info) Description 03/23/2025 8:30 AM EDT Appointment [facility] [address], [address] [place] [address] 03/23/2025 10:30 AM EDT Clinical Support [facility] [address] [address] 03/23/2025 11:00 AM EDT Office Visit [facility] [address] [place] [address] Maninder Zhang MD 800 [facility] [address] [place] [address] 03/23/2025 12:00 PM EDT Appointment [facility] 800 [place] [address] documented as of this encounter Procedures Procedure Name Priority Date/Time Associated Diagnosis Comments CT MSK OUTSIDE IMAGES 02/15/2025 8:54 AM EDT documented in this encounter Results * CT MSK OUTSIDE IMAGES (02/15/2025 8:54 AM EDT) Anatomical Region Laterality Modality Computed Tomogra phy 02/15/2025 8:54 AM EDT us External Provider IMG CT PROCEDURES Final Result documented in this encounter Visit Diagnoses Not on filedocumented in this encounter Additional Health Concerns Assessment Noted Time A fall risk assessment has been complete d for the patient 02/09/2025 1:33 PM EDT A Body Mass Index follow-up plan has been documented for the patient 01/19/2025 4:11 PM EDT documented as of this encounter Care Teams Transportation Program Director Relationship Specialty Start Date End Date Constantine Stiles APRN [address] [place] [address] PCP - General 01/21/23 Farhat Gómez MD 800 [facility] [address] [place] [address] Consulting Physician Radiation Oncology 10/27/24 documented as of this encounter
--- OUTSIDE RECORDS SUMMARY | 2025-03-08 13:10 | XMS_ITS | Encounter Summary ---
Author Organization [facility] Address [address] [place] [address] Care Team Providers Care Project Director Name Role Phone Constantine Stiles Dejon CH Primary Care Provider [phone] Farhat Gómez MD Unavailable Encounter Details Date Type Department Care Team (Latest Contact Info) Description 02/09/2025 Travel Social History Tobacco Use Types Packs/Day [...] Suicidal Behavior (Lifetime) No 11:17 AM EDT Prasanth, [place] R documented as of this encounter Plan of Treatment Upcoming Encounters Date Type Department Care Team (Late st Contact Info) Description 03/23/2025 8:30 AM EDT Appointment [facility] [address]nd [place] [address] 03/23/2025 10:30 AM EDT Clinical Support [facility] 800 [facility], 2nd [place] [address] 03/23/2025 11:00 AM EDT Office Visit Pav [facility] Res[facility] [address] [facility], [address]nd [place] [address] Maninder Zhang MD 800 [facility] [address] Dubois [facility] [address] [place] [address] 03/23/2025 12:00 PM EDT Appointment [facility] 800 [place] [address] documented as of this encounter Visit Diagnoses Not on filedocumented in this encounter Additional Health Concerns Assessment Noted Time A fall risk assessment has been complete d for the patient 02/09/2025 1:33 PM EDT A Body Mass Index follow-up plan has been documented for the patient 01/19/2025 4:11 PM EDT documented as of this encounter Care Teams Project Director Relationship Specialty Start Date End Date Constantine Stiles APRN [address] [place] [address] PCP - General 01/21/23 Farhat Gómez MD 800 [facility] [address] [place] [address] Consulting Physician Radiation Oncology 10/27/24 documented as of this encounter
--- OUTSIDE RECORDS SUMMARY | 2025-03-08 13:10 | XMS_ITS | Encounter Summary ---
Author Organization [facility] Address [address] [place] [address] Care Team Providers Care Senior Windows Engineer Name Role Phone Constantine Stiles Dejon CH Primary Care Provider [phone] Farhat Gómze MD Unavailable Encounter Details Date Type Department Care Team ([facility] Contact Info) Description 02/09/2025 Telephone [facility] Respiratory [address] [place] [phone] Tiffany Rosario, RN Social History Tobacco Use [...] Telephone Encounter - Tiffany Rosario RN - 02/09/2025 8:44 AM EDT RN called and spoke with patient and asked if he would be able to come in early per infusion's request due to chair length and risk for reaction. Patient stated he could come in earlier. RN adjusted appts accordingly. documented in this encounter Plan of Treatment Upcoming Encounters Date Type Department Care Team (Late st Contact Info) Description 03/23/2025 8:30 AM EDT Appointment [facility] [address] [place] [address] 03/23/2025 10:30 AM EDT Clinical Support Pav [facility] Respiratory 800 [facility], 2nd [place] [address] 03/23/2025 11:00 AM EDT Office Visit [facility] Res[facility] 800 [facility], 2nd [place] [address] Maninder Zhang MD 800 [facility] Shannan Ramirezrickson [facility] [address] [place] [address] 03/23/2025 12:00 PM EDT Appointment [facility] Infusion [address] [place] [address] documented as of this encounter Visit Diagnoses Not on filedocumented in this encounter Additional Health Concerns Assessment Noted Time A fall risk assessment has been complete d for the patient 02/09/2025 1:33 PM EDT A Body Mass Index follow-up plan has been documented for the patient 01/19/2025 4:11 PM EDT documented as of this encounter Care Teams Senior Windows Engineer Relationship Specialty Start Date End Date Constantine Stiles APRN [address] [place] [address] PCP - General 01/21/23 Farhat Gómze MD 800 [facility] [address] [place] [address] Consulting Physician Radiation Oncology 10/27/24 documented as of this encounter
--- OUTSIDE RECORDS SUMMARY | 2025-03-08 13:10 | XMS_ITS | Encounter Summary ---
Author Organization Healthcare Address [address] [place] [address] Care Team Providers Care Supervisor Audit Clerks Name Role Phone Constantine Stiles Dejon CH Primary Care Provider [phone] Farhat Gómez MD Unavailable Encounter Details Date Type Department Care Team (Late Contact Info) Description 02/15/2025 Orders Only External Location [address] [place] [address] Provider, External Social History Tobacco Use Types [...] Info) Description 03/23/2025 8:30 AM EDT Appointment [facility] [address] [place] [address] 03/23/2025 10:30 AM EDT Clinical Support [facility] [address] [address] 03/23/2025 11:00 AM EDT Office Visit [facility] Res[facility] [address] [place] [address] Maninder Zhang MD 800 [facility] Shannan Dubois dg [address] [place] [address] 03/23/2025 12:00 PM EDT Appointment [facility] [address] [place] [phone] documented as of this encounter Procedures Procedure Name Priority Date/Time Associated Diagnosis Comments CT THORACIC OUTSIDE IMAGES 02/15/2025 8:54 AM EDT documented in this encounter Results * CT THORACIC OUTSIDE IMAGES (02/15/2025 8:54 [...] documented as of this encounter Care Teams Supervisor Audit Clerks Relationship Specialty Start Date End Date Constantine Stiles APRN [address] [place], [place] [id number] PCP - General 01/21/23 Farhat Gómez MD 800 [facility] [address] [place] [address] Consulting Physician Radiation Oncology 10/27/24 documented as of this encounter
--- OUTSIDE RECORDS SUMMARY | 2025-03-08 13:10 | XMS_ITS | Encounter Summary ---
Author Organization [facility] Address [address] [place] [address] Care Team Providers Care Admitting Supervisor Name Role Phone Constantine Stiles Dejon CH Primary Care Provider [phone] Farhat Gómez MD Unavailable Encounter Details Date Type Department Care Team (Latest Contact Info) Description 03/02/2025 Travel Social History Tobacco Use Types Packs/Day [...] Kristine Lewis documented as of this encounter Plan of Treatment Upcoming Encounters Date Type Department Care Team (Late st Contact Info) Description 03/23/2025 8:30 AM EDT Appointment [facility] [address], [address]nd [place] [address] 03/23/2025 10:30 AM EDT Clinical Support [facility] Head[facility] Neck [facility] Respiratory 800 [facility], [address] [place] [address] 03/23/2025 11:00 AM EDT Office Visit [facility] Head[facility] Neck [facility] Respiratory 800 [facility], [address] [place] [address] Maninder Zhang MD 800 [facility] Sh[address] [place] [address] 03/23/2025 12:00 PM EDT Appointment [facility] 800 [place] [address] documented as of this encounter Visit Diagnoses Not on filedocumented in this encounter Additional Health Concerns Assessment Noted Time A fall risk assessment has been complete d for the patient 03/02/2025 10:44 AM EDT A Body Mass Index follow-up plan has been documented for the patient 03/02/2025 6:30 PM EDT documented as of this encounter Care Teams Admitting Supervisor Relationship Specialty Start Date End Date Constantine Stiles APRN [address] [place] [address] PCP - General 01/21/23 Farhat Gómez MD 800 [facility] [address] [place] [address] Consulting Physician Radiation Oncology 10/27/24 documented as of this encounter
--- OUTSIDE RECORDS SUMMARY | 2025-03-08 13:10 | XMS_ITS | Encounter Summary ---
Author Organization [facility] Address [address] [place] [address] Care Team Providers Care Drawing Box Tender Name Role Phone Linsey Constantine Ashford APRN Primary Care Provider [phone] Farhat Gómez MD Unavailable Reason for Referral * Imaging (Routine) - Authorized Specialty Diagnoses / Procedures Referred By Contac t Referred To Contact Radiology Diagnoses 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 (CMS/HCC) Procedures CT Chest w IV Contrast Maninder Zhang MD [address] [address] Phone: tel: fax: Referral ID Status Reason Start Date Expiration Date V isits Requested Visits Authorized [id number] Authorized 02/10/2025 08/12/2026 1 1 * Imaging (Routine) - Authorized Specialty Diagnoses / Procedures Referred By Contac t Referred To Contact Radiology Diagnoses 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 (CMS/HCC) Procedures CT Abdomen Pelvis w IV Contrast Maninder Zhang MD [address] [address] Phone: tel: fax: Referral ID Status Reason Start Date Expiration Date V isits Requested Visits Authorized [id number] Authorized 02/10/2025 08/12/2026 1 1 Encounter Details Date Type Department Care Team ([facility] Contact Info) Description 02/10/2025 Orders Only Pav [facility] Head[facility] Neck [facility] Respiratory [address] [address] Tiffany Rosario, RN Squamous cell carcinoma of [...] Info) Description 03/23/2025 8:30 AM EDT Appointment [facility] [address], [address] [place] [address] 03/23/2025 10:30 AM EDT Clinical Support [facility] Res[facility] [address] [address] 03/23/2025 11:00 AM EDT Office Visit [facility] Res[facility] [address] [address] Maninder Zhang MD [address] [place] [address] [facility] [address] [place] [address] 03/23/2025 12:00 PM EDT Appointment [facility] [address] [place] [address] Scheduled Orders Name Type Priority Associated Diagnoses Orde r Schedule CT Abdomen Pelvis w IV Contrast Imaging Routine 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 (CMS/HCC) Expected: 03/23/2025, Expires: 08/13/2026 CT Chest w IV Contrast Imaging Routine 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 (CMS/HCC) Expected: 03/23/2025, Expires: 08/13/2026 documented as of this encounter Visit Diagnoses Diagnosis Squamous cell carcinoma of left lung- Primary Malignant neoplasm of upper lobe of left lung (CMS/HCC) documented in this encounter Additional Health Concerns Assessment Noted Time A fall risk assessment has been complete d for the patient 02/09/2025 1:33 PM EDT A Body Mass Index follow-up plan has been documented for the patient 01/19/2025 4:11 PM EDT documented as of this encounter Care Teams Drawing Box Tender Relationship Specialty Start Date End Date Constantine Stiles APRN [address] [place] [address] PCP - General 01/21/23 Farhat Gómez MD [address] [place], [place] [address]D [place] [address] Consulting Physician Radiation Oncology 10/27/24 documented as of this encounter
--- OUTSIDE RECORDS SUMMARY | 2025-03-08 13:10 | XMS_ITS | Encounter Summary ---
Author Organization [facility] Address [address] [place] [address] Care Team Providers Care Packaging Technician Name Role Phone Constantine Stiles Dejon CH Primary Care Provider [phone] Farhat Gómez MD Unavailable Encounter Details Date Type Department Care Team (Late st Contact Info) Description 02/09/2025 Orders Only Pav [facility] Head[facility] Neck & Respiratory [address] [place] [address] Maninder Zhang MD [address] [facility] [address] [place] [address] Malignant neoplasm of upper lobe of left lung (CMS/HCC) (Primary Dx) Social History Tobacco Use Types Packs/Day Years [...] No Risk Indicated 02/09/2025 11:17 AM EDT Yariel gamboa, Rito R * Question Answer Date of Assessment [...] Info) Description 03/23/2025 8:30 AM EDT Appointment [facility] [address], [address]nd [place] [address] 03/23/2025 10:30 AM EDT Clinical Support [facility] Head[facility] Neck [facility] Respiratory 800 [facility], [address]nd [place] [address] 03/23/2025 11:00 AM EDT Office Visit [facility] Head[facility] Neck [facility] Respiratory [address] [facility], [address] [place] [address] Maninder Zhang MD 800 [facility] [address] [place] [address] 03/23/2025 12:00 PM EDT Appointment [facility] [address] [place] [address] Scheduled Orders Name Type Priority Associated Diagnoses Orde r Schedule CBC and differential Lab Routine Malignant neoplasm of upper lobe of left lung (CMS/HCC) Expected: 03/23/2025, Expires: 03/23/2026 Comprehensive metabolic panel Lab Routine Malignant neoplasm of upper lobe of left lung (CMS/HCC) Expected: 03/23/2025, Expires: 03/23/2026 Magnesium Lab STAT Malignant neoplasm of upper lobe of left lung (CMS/HCC) Expected: 03/23/2025, Expires: 03/23/2026 documented as of this encounter Results * TSH reflex FT4 (03/02/2025 9:07 AM EDT) Thyroid Stimulating Hormone, Plasma 1.63 0.40 - 4.20 uIU/mL 03/02/2025 9:56 AM EDT [facility] Blood Venous blood specimen / Unknown Venipuncture / Unknown 03/02/2025 9:07 AM EDT 03/02/2025 9:20 AM EDT Maninder Zhang MD LAB BLOOD ORDERABLES Final Resul t Performing Organization Address City/[facility]/ZIP Co de Phone Number [facility] [address] [place] [address] * Magnesium (03/02/2025 9:07 AM EDT) Magnesium, Plasma 1.9 1.9 - 2.4 mg/dL 03/02/2025 9:56 AM EDT [facility] Blood Venous blood specimen / Unknown Venipuncture / Unknown 03/02/2025 9:07 AM EDT 03/02/2025 9:20 AM EDT us Maninder Zhang MD LAB BLOOD ORDERABLES Final Resul t Performing Organization Address City/[facility]/ZIP Co de Phone Number [facility] [address] [place] [address] * (ABNORMAL) Comprehensive metabolic panel (03/02/2025 9:07 AM EDT) Glucose, Plasma 232(H) 74 - 99 mg/dL 03/02/2025 9:55 AM EDT [facility] BUN, Plasma 7(L) 8 - 23 mg/dL 03/02/2025 9:55 AM EDT [facility] Creatinine, Plasma 0.76 0.70 - 1.20 mg/dL 03/02/2025 9:55 AM EDT [facility] BUN/Creatinine Ratio 9 03/02/2025 9:55 AM EDT [facility] Sodium, Plasma 137 136 - 145 mmol/L 03/02/2025 9:55 AM EDT [facility] Potassium, Plasma 4.6 3.6 - 4.9 mmol/L 03/02/2025 9:55 AM EDT [facility] Chloride, Plasma 100 97 - 107 mmol/L 03/02/2025 9:55 AM EDT [facility] CO2, Plasma 23 22 - 29 mmol/L 03/02/2025 9:55 AM EDT [facility] Anion Gap 14 6 - 16 mmol/L 03/02/2025 9:55 AM EDT [facility] Total Calcium, Plasma 9.8 8.9 - 10.2 mg/dL 03/02/2025 9:55 AM EDT [facility] Total Protein 7.4 6.3 - 7.9 g/dL 03/02/2025 9:55 AM EDT [facility] Albumin, Plasma 3.3(L) 3.5 - 5.2 g/dL 03/02/2025 9:55 AM EDT [facility] AST, Plasma 25 10 - 50 U/L 03/02/2025 9:55 AM EDT [facility] ALT, Plasma 43 10 - 50 U/L 03/02/2025 9:55 AM EDT [facility] Alkaline Phosphatase, Plasma 205(H) 40 - 115 U/L 03/02/2025 9:55 AM EDT [facility] Total Bilirubin, Plasma 0.5 0.2 - 1.1 mg/dL 03/02/2025 9:55 AM EDT [facility] eGFRcr 102.3 mL/min/1.7 3m*2 03/02/2025 9:55 AM EDT [facility] Comment:Reported eGFRcr in m L/min/1.73m2 is based the CKD-EPI 2020 equation that does not use a race coefficient. Blood Venous blood specimen / Unknown Venipuncture / Unknown 03/02/2025 9:07 AM EDT 03/02/2025 9:20 AM EDT us Maninder Zhang MD LAB BLOOD ORDERABLES Final Resul t [facility] [address] [place] [address] * (ABNORMAL) CBC and differential (03/02/2025 9:07 AM EDT) WBC Count 19.59(H) 3.70 - 10.30 10*3/uL LAB HEMATOLOGY METHOD 03/02/2025 11:36 AM EDT [facility] RBC Count 2.43(L) 4.60 - 6.10 10*6/uL LAB HEMATOLOGY METHOD 03/02/2025 11:36 AM EDT [facility] HGB 7.1(L) 13.7 - 17.5 g/dL LAB HEMATOLOGY METHOD 03/02/2025 11:36 AM EDT [facility] HCT 24.5(L) 40.0 - 51.0 % LAB HEMATOLOGY METHOD 03/02/2025 11:36 AM EDT [facility] Platelet Count 244 155 - 369 10*3/uL LAB HEMATOLOGY METHOD 03/02/2025 11:36 AM EDT [facility] MCV 101(H) 79 - 98 fL LAB HEMATOLOGY METHOD 03/02/2025 11:36 AM EDT [facility] MCH 29.2 26.0 - 32.0 pg LAB HEMATOLOGY METHOD 03/02/2025 11:36 AM EDT [facility] MCHC 29.0(L) 30.7 - 35.5 g/dL LAB HEMATOLOGY METHOD 03/02/2025 11:36 AM EDT [facility] RDW 17.0(H) 11.5 - 14.5 % LAB HEMATOLOGY METHOD 03/02/2025 11:36 AM EDT [facility] MPV 10.2 8.8 - 12.5 fL LAB HEMATOLOGY METHOD 03/02/2025 11:36 AM EDT [facility] nRBC 0.0 <=0.0 per 100 WBCs LAB HEMATOLOGY METHOD 03/02/2025 11:36 AM EDT [facility] Differential Type Automated LAB HEMATOLOGY METHOD 03/02/2025 11:36 AM EDT [facility] Neutrophils % 89 % LAB HEMATOLOGY METHOD 03/02/2025 11:36 AM EDT [facility] Lymphocytes % 3 % LAB HEMATOLOGY METHOD 03/02/2025 11:36 AM EDT [facility] Monocytes % 5 % LAB HEMATOLOGY METHOD 03/02/2025 11:36 AM EDT [facility] Eosinophils % 0 % LAB HEMATOLOGY METHOD 03/02/2025 11:36 AM EDT [facility] Basophils % 0 % LAB HEMATOLOGY METHOD 03/02/2025 11:36 AM EDT [facility] Immature Granulocytes % 3 % LAB HEMATOLOGY METHOD 03/02/2025 11:36 AM EDT [facility] Neutrophils Absolute 17.37(H) 1.60 - 6.10 10*3/uL LAB HEMATOLOGY METHOD 03/02/2025 11:36 AM EDT [facility] Lymphocytes Absolute 0.52(L) 1.20 - 3.90 10*3/uL LAB HEMATOLOGY METHOD 03/02/2025 11:36 AM EDT [facility] Monocytes Absolute 0.99(H) 0.30 - 0.90 10*3/uL LAB HEMATOLOGY METHOD 03/02/2025 11:36 AM EDT [facility] Eosinophils Absolute 0.00 0.00 - 0.50 10*3/uL LAB HEMATOLOGY METHOD 03/02/2025 11:36 AM EDT [facility] Basophils Absolute 0.04 0.00 - 0.10 10*3/uL LAB HEMATOLOGY METHOD 03/02/2025 11:36 AM EDT [facility] Immature Granulocytes Absolute 0.67(H) 0.00 - 0.06 10*3/uL LAB HEMATOLOGY METHOD 03/02/2025 11:36 AM EDT [facility] Blood Venous blood specimen / Unknown Venipuncture / Unknown 03/02/2025 9:07 AM EDT 03/02/2025 9:21 AM EDT Narrative [facility] - 03/02/2025 11:36 AM EDT Therapeutic decision making should be based on absolute values, rather than percentages. us Maninder Zhang MD LAB BLOOD ORDERABLES Final Resul t [facility] [address] [place] [address] documented in this encounter Visit Diagnoses Diagnosis Malignant neoplasm of upper lobe of left lung (CMS/HCC)- Primary documented in this encounter Additional Health Concerns Assessment Noted Time A fall risk assessment has been complete d for the patient 02/09/2025 1:33 PM EDT A Body Mass Index follow-up plan has been documented for the patient 01/19/2025 4:11 PM EDT documented as of this encounter Care Teams Packaging Technician Relationship Specialty Start Date End Date Constantine Stiles APRN [address] [place] [address] PCP - General 01/21/23 Farhat Gómez MD [address] [place], [place] [address] [place] [phone] Consulting Physician Radiation Oncology 10/27/24 documented as of this encounter
--- OUTSIDE RECORDS SUMMARY | 2025-03-08 13:10 | XMS_ITS | Encounter Summary ---
Author Organization Healthcare Address [address] [place] [address] Care Team Providers Care Block Bolter Mule Operator Name Role Phone Constantine Stiles OPERATING COST CLERK Primary Care Provider [phone] Farhat Gómez MD Unavailable Encounter Details Date Type Department Care Team (Late st Contact Info) Description 01/10/2025 Orders Only Pav [facility] Respiratory [address] [place] [address] Maninder Zhang MD 800 [facility] [address] [place] [address] Social History Tobacco Use Types Packs/Day Years [...] Info) Description 03/23/2025 8:30 AM EDT Appointment [facility] [address]nd [place] [address] 03/23/2025 10:30 AM EDT Clinical Support Pav CC Head[facility] Neck [facility] Respiratory 800 [facility], [address]nd [place] [address] 03/23/2025 11:00 AM EDT Office Visit Pav CC Head[facility] Neck & Respiratory 800 [facility], [address]nd [place] [address] Maninder Zhang MD 800 [facility] Shannan Dubois [facility] [address] [place] [address] 03/23/2025 12:00 PM EDT Appointment [facility] [address] [place] [address] documented as of this encounter Visit Diagnoses Not on filedocumented in this encounter Additional Health Concerns Assessment Noted Time A fall risk assessment has been complete d for the patient 12/27/2024 3:32 PM EDT A Body Mass Index follow-up plan has been documented for the patient 12/15/2024 4:25 PM EDT documented as of this encounter Care Teams Block Bolter Mule Operator Relationship Specialty Start Date End Date Constantine Stiles, DIMA [address] [place] [address] PCP - General 01/21/23 Farhat Gómez MD 800 [facility] [address] [place] [address] Consulting Physician Radiation Oncology 10/27/24 documented as of this encounter
[2025-03-08 13:17] VITALS: BP 99/64; PULSE 96; RESP 20; TEMP 36.8; O2SAT 95; BMI 22.8
--- NOTE | 2025-03-08 13:19 | XR_ITS ---
FINAL REPORT TECHNIQUE: Single view chest CLINICAL HISTORY: Dyspnea, history of lung cancer COMPARISON: 02/15/2025 FINDINGS: A single view of the chest was obtained. The heart and mediastinum are within normal limits. There are increased interstitial markings bilaterally, favor pneumonia. There is no pleural effusion. There is no pneumothorax. IMPRESSION: Increased interstitial markings bilaterally, favor pneumonia. Reviewed, Interpreted and Dictated by Blas Lord MD Transcribed by Yolanda Carranza Authenticated and [facility]
[2025-03-08] MEDS: DEXAMETHASONE 4MG/ML 5ML MDV 10 MG IV (13:25)
[2025-03-08] MEDS: IPRATROPIUM/ALBUTEROL 3 ML NEB 9 ML IH (13:25)
[2025-03-08 13:28] LABS: Basophils % 0.8 % (0.1-2.0); Eosinophils % 0.8 % (0.1-12.0); Immature Granulocytes # 0.08 10^3uL; Immature Granulocytes % 6.7 %; Lymphocytes # 0.2 K/mm3 (0.7-4.5); Lymphocytes % 15.8 % (10-50); Mean Corpuscular HGB Conc 29.6 g/dL (31.8-35.4); Mean Corpuscular Hemoglobin 28.7 pg (27.0-31.2); Mean Corpuscular Volume 97.1 fl (80-94); Mean Platelet Volume 11.5 fl (7.4-10.4); Monocytes # 0.1 K/mm3 (0.1-1.0); Monocytes % 5.8 % (1.7-9.3); Neutrophils # 0.8 K/mm3 (1.8-7.8); Neutrophils % 70.1 % (37.0-80.0); Nucleated Red Blood Cells # 0 10^3/uL; Nucleated Red Blood Cells % 0 %; Platelet Count 82 K/mm3 (142-424); Red Blood Count 2.09 M/mm3 (4.60-6.20); Red Cell Distribution Width 16.6 % (11.5-17.5)
[2025-03-08 13:29] LABS: Chloride 101 mmol/L (98-107)
[2025-03-08 13:30] VITALS: BP 94/60; PULSE 97; RESP 17; O2SAT 94
[2025-03-08 13:30] LABS: Albumin Level 3.1 g/dl (3.5-5.0); Potassium 3.3 mmoL/L (3.5-5.1); Sodium 135 mmol/L (136-145)
[2025-03-08 13:32] LABS: Anion Gap 14.3 mEq/L (5-15); Blood Urea Nitrogen 17 mg/dl (9-20); Carbon Dioxide 23 mmol/L (22.0-30.0); Creatinine Clearance Estimated 75 mL/min (50-200); Estimated Glomerular Filt Rate 137 ml/min (>60); GFR (African American) 166 ML/MIN (>60)
[2025-03-08 13:33] LABS: Alanine Aminotransferase 45 U/L (12-78); Albumin/Globulin Ratio 0.9 (1.1-1.8); Alkaline Phosphatase 162 U/L (38-126); Aspartate Amino Transferase 33 U/L (17-59); Bilirubin,Total 0.5 mg/dl (0.2-1.3); Calcium 8.7 mg/dl (8.4-10.2); Globulin 3.3 g/dL (1.3-3.2); Glucose 165 mg/dl (74-100); Magnesium 1.9 mg/dl (1.6-2.3); Total Protein,Serum 6.4 g/dl (6.3-8.2)
[2025-03-08 13:42] LABS: Adenovirus,PCR Not Detected (NotDetected); Bordetella Pertussis Not Detected (NotDetected); Chlamydophila Pneumoniae, PCR Not Detected (NotDetected); Coronavirus 19, PCR Not Detected (NotDetected); Coronavirus 229E Not Detected (NotDetected); Coronavirus NL63 Not Detected (NotDetected); Coronavirus OC43 Not Detected (NotDetected); Coronovirus HKU1,PCR Not Detected (NotDetected); Human Metapneumovirus Not Detected (NotDetected); Influenza A, PCR Not Detected (NotDetected); Influenza AH1, 2009 Not Detected (NotDetected); Influenza AH1, PCR Not Detected (NotDetected); Influenza AH3,PCR Not Detected (NotDetected); Influenza B, PCR Not Detected (NotDetected); Mycoplasma Pneumoniae, PCR Not Detected (NotDetected); Parainfluenza 1, PCR Not Detected (NotDetected); Parainfluenza 2, PCR Not Detected (NotDetected); Parainfluenza 3, PCR Not Detected (NotDetected); Parainfluenza 4, PCR Not Detected (NotDetected); Respiratory Syncytial Virus Not Detected (NotDetected)
[2025-03-08 13:43] LABS: NT Pro Brain Natriuretic Pep. 483 pg/mL (0-125)
[2025-03-08 14:00] VITALS: BP 111/71; PULSE 111; RESP 14; O2SAT 96
[2025-03-08 14:05] LABS: Hematocrit 20.3 % (42.0-52.0); White Blood Count 1.2 K/mm3 (4.8-10.8)
[2025-03-08 14:06] LABS: MANUAL DIFFERENTIAL MANUAL DIFFERENTIAL (MANUAL DIFF); Procalcitonin 1.5 ng/mL (0.0-2.0)
[2025-03-08 14:17] LABS: Lymphocytes % 16 % (10-50); Monocytes % 4 % (2-9); Neutrophils % 80 % (42-76); Total Cells Counted 25
[2025-03-08 14:18] LABS: Platelet Estimate Slight Decrease; RBC Morphology Normal
--- NOTE | 2025-03-08 14:18 | CT_ITS ---
FINAL REPORT TECHNIQUE: Thin section axial CT with contrast with multiplanar reconstruction This study was performed with techniques to keep radiation doses as low as reasonably achievable, (ALARA). Individualized dose reduction techniques using automated exposure control or adjustment of mA and/or kV according to the patient''s size were employed. CLINICAL HISTORY: Dyspnea, metastatic lung CA COMPARISON: 02/15/2025 FINDINGS: Pulmonary vessels enhance in normal fashion without evidence of embolism. There are severe emphysematous changes. There is cavitary change involving the anterior left upper lobe with nodular thickening of the anterior wall, similar to prior. Again identified are a few scattered lung nodules. Lingular lesion measures 12 mm, unchanged. Other lesions are stable. There are new patchy nodular infiltrates in the lower lobes compatible with pneumonia. There is no significant pleural effusion. There is no significant pericardial effusion. Left prevascular and AP window adenopathy is stable. Right lytic metastases of the T12 vertebral body and proximal right 12th rib is again identified. IMPRESSION: No evidence of pulmonary embolism. Extensive bibasilar pneumonia. Stable metastatic disease of the thorax. Reviewed, Interpreted and Dictated by Blas Lord MD Transcribed by Priti Gonzalez Authenticated and [facility]
--- NOTE | 2025-03-08 14:18 | CT_ITS ---
FINAL REPORT TECHNIQUE: Pre-and postcontrast images of the abdomen and pelvis were performed by computed tomography. Extensive 3-D reconstruction images were performed. A CTA was performed. This study was performed with techniques to keep radiation doses as low as reasonably achievable (ALARA). Individualized dose reduction techniques using automated exposure control or adjustment of mA and/or kV according to the patient''s size were employed. CLINICAL HISTORY: Dyspnea, metastatic lung CA, severe anemia COMPARISON: 02/15/2025 FINDINGS: ABDOMEN: Again seen are multiple liver lesions consistent with known metastasis. The lesion in the caudate lobe has increased in size now measuring 18 mm, previously measured 15 mm. An upper pole left renal cyst is again seen. There is compensatory hypertrophy of the left kidney. Right adrenal metastasis is noted measuring 45 x 27 mm, previously measuring 40 x 20 mm. There is left periaortic adenopathy measuring 10 mm. This previously measured 7 mm. There is gaseous distention of large and small bowel likely related to ileus. PELVIS: There is a lytic lesion of the right iliac bone. There is no free fluid. There is no pelvic adenopathy. CTA: The abdominal aorta demonstrates mild plaque without aneurysm or dissection. There is moderate plaque of the iliac vessels without stenosis. Solitary left renal artery is widely patent. Mesenteric vessels are patent. IMPRESSION: No acute intra-abdominal findings. Worsening liver and right adrenal metastasis. Bone metastasis again noted. Reviewed, Interpreted and Dictated by Blas Lord MD Transcribed by Yolanda Carranza Authenticated and [facility]
[2025-03-08 14:24] LABS: VBG Base Excess -1.1 mmol/L (-2.4-2.3); VBG HCO3 24.1 mmol/L (23-30); VBG Oxygen Saturation 68.5 % (50-70); VBG PCO2 41.7 mmol/L (35-51); VBG PH 7.38 mmol/L (7.31-7.41); VBG PO2 40.6 mmol/L (28-40); VBG Total CO2 25.3 mmol/L (23-27)
[2025-03-08 14:25] LABS: Lactate Venous 2.2 mmol/L (0.4-2.0)
[2025-03-08] MEDS: 0.9 % SODIUM CHLORIDE 50 ML VIAL IV (14:35)
[2025-03-08] MEDS: IOPAMIDOL-370 (76%);100ML BOTTLE 80 ML IV (14:35)
[2025-03-08] MEDS: SODIUM CHLORIDE 0.9% 10ML SYR (RAD ONLY) 10 ML IV (14:35)
[2025-03-08 14:45] LABS: Creatine Kinase 27 U/L (55-170)
[2025-03-08 15:00] VITALS: BP 99/61; PULSE 101; O2SAT 90
--- NOTE | 2025-03-08 15:00 | PC.NURSE ---
Called [facility] per KIMMY Ochoa to speak with them about transferring this pt for Pancytopenia. Images were powershared and [facility] advised that they would call us back
--- NOTE | 2025-03-08 15:09 | PC.NURSE ---
called back and is speaking with KIMMY Ochoa and he was accepted by Dr Blank
[2025-03-08 15:13] LABS: Basophils % 0.9 % (0.1-2.0); Eosinophils % 0.9 % (0.1-12.0); Immature Granulocytes # 0.14 10^3uL; Immature Granulocytes % 13.2 %; Lymphocytes # 0.1 K/mm3 (0.7-4.5); Lymphocytes % 7.5 % (10-50); Mean Corpuscular HGB Conc 30.5 g/dL (31.8-35.4); Mean Corpuscular Hemoglobin 29.2 pg (27.0-31.2); Mean Corpuscular Volume 95.7 fl (80-94); Mean Platelet Volume 11.1 fl (7.4-10.4); Monocytes # 0.1 K/mm3 (0.1-1.0); Monocytes % 5.7 % (1.7-9.3); Neutrophils # 0.8 K/mm3 (1.8-7.8); Neutrophils % 71.8 % (37.0-80.0); Nucleated Red Blood Cells # 0 10^3/uL; Nucleated Red Blood Cells % 0 %; Platelet Count 73 K/mm3 (142-424); Red Blood Count 2.09 M/mm3 (4.60-6.20); Red Cell Distribution Width 16.7 % (11.5-17.5); Red Cell Distribution Width-SD 58.4 fL
[2025-03-08 15:17] LABS: Hemoglobin 6.1 g/dL (14.1-18.0); White Blood Count 1.1 K/mm3 (4.8-10.8)
--- NOTE | 2025-03-08 15:26 | PC.NURSE ---
called report to efraín gamboa rn
--- NOTE | 2025-03-08 15:27 | PC.NURSE ---
[facility] called and made aware of this transfer.
[2025-03-08 15:58] LABS: MANUAL DIFFERENTIAL MANUAL DIFFERENTIAL (MANUAL DIFF)
[2025-03-08 16:04] LABS: Lymphocytes % 8 % (10-50); Monocytes % 1 % (2-9); Neutrophils % 91 % (42-76); Total Cells Counted 100
[2025-03-08 16:05] VITALS: BP 99/61; PULSE 101; RESP 30; TEMP 36.8; O2SAT 94
[2025-03-08 16:05] LABS: Ovalocytes 1+; Platelet Estimate Moderate Decrease; Poikilocytosis 1+; Target Cells 1+; Tear Drop Cells 1+
[2025-03-08 16:06] LABS: Anisocytosis 1+; Microcytosis 1+
[2025-03-08 18:25] LABS: Reflex Lactic Add Lactic Reflex
[2025-03-08 18:32] LABS: Rhinovirus/Enterovirus Detected (NotDetected)
== END 2025-03-08 16:07 | disposition short-term general hospital (02) ==
PROVIDERS: Physician Assistant; Emergency Provider Emergency Medicine; PCP Nurse Practitioner Family
DX: J18.9 Pneumonia, unspecified organism (principal); D61.818 Other pancytopenia; D63.0 Anemia in neoplastic disease; D84.9 Immunodeficiency, unspecified; C34.90 Malignant neoplasm of unspecified part of unspecified bronchus or lung; R06.02 Shortness of breath; Z87.891 Personal history of nicotine dependence
CPT/HCPCS: 0223U; 36415; 71045; 71275; 74174; 80053; 82550; 82803; 83605; 83735; 83880; 84145; 85007; 85025; 85027; 86850; 87040; 87633; 93005; 96374; 99291; J1100; Q9967

== ENCOUNTER 2025-03-18 22:52 | Emergency (ER) | payer MEDICAID, SELFPAY ==
--- OUTSIDE RECORDS SUMMARY | 2025-01-19 09:00 | XMS_ITS | Encounter Summary ---
Author Organization [facility] Address [address] [place] [address] Care Team Providers Care Nitric Acid Concentrator Operator Name Role Phone Constantine Stiles APRN Primary Care Provider [phone] Farhat Gómez MD Unavailable Reason for Visit * Reason Comments Labs Peripheral stick, ri ght armGuardant draw Encounter Details Date Type Department Care Team (Latest Contact Info) Description 01/19/2025 9:00 AM EDT Clinical Support [facility] [address] [place] [address] Malignant neoplasm of upper lobe of left [...] [facility] [address] [facility], [address]nd [place] [address] 03/23/2025 11:00 AM EDT Office Visit [facility] [address] [facility], [address]nd [place] [address] Maninder Zhang MD [address] [facility] [address] [place] [address] 03/23/2025 12:00 PM EDT Appointment [facility] [address] [place] [address] documented as of this encounter [...] - 4.20 uIU/mL 01/19/2025 10:06 AM EDT [facility] Blood Venous blood specimen / Unknown Venipuncture / Unknown 01/19/2025 8:58 AM EDT 01/19/2025 9:31 AM EDT Maninder Zhang MD LAB BLOOD ORDERABLES Final Resul t Performing Organization Address City/[facility]/ZIP Co de Phone Number [facility] [address] [place] [address] * Magnesium (01/19/2025 8:58 AM EDT) Magnesium, Plasma 2.1 1.9 - 2.4 mg/dL 01/19/2025 10:06 AM EDT [facility] Blood Venous blood specimen / Unknown Venipuncture / Unknown 01/19/2025 8:58 AM EDT 01/19/2025 9:31 AM EDT Maninder Zhang MD LAB BLOOD ORDERABLES Final Resul t Performing Organization Address [facility] Co de Phone Number [facility] [address] [place] [address] * (ABNORMAL) Comprehensive metabolic panel (01/19/2025 8:58 AM EDT) Glucose, Plasma 101(H) 74 - 99 mg/dL 01/19/2025 10:06 AM EDT [facility] BUN, Plasma 13 8 - 23 mg/dL 01/19/2025 10:06 AM EDT [facility] Creatinine, Plasma 0.99 0.70 - 1.20 mg/dL 01/19/2025 10:06 AM EDT [facility] BUN/Creatinine Ratio 13 01/19/2025 10:06 AM EDT [facility] Sodium, Plasma 135(L) 136 - 145 mmol/L 01/19/2025 10:06 AM EDT [facility] Potassium, Plasma 4.3 3.6 - 4.9 mmol/L 01/19/2025 10:06 AM EDT [facility] Chloride, Plasma 99 97 - 107 mmol/L 01/19/2025 10:06 AM EDT [facility] CO2, Plasma 26 22 - 29 mmol/L 01/19/2025 10:06 AM EDT [facility] Anion Gap 10 6 - 16 mmol/L 01/19/2025 10:06 AM EDT [facility] Total Calcium, Plasma 9.7 8.9 - 10.2 mg/dL 01/19/2025 10:06 AM EDT [facility] Total Protein 7.1 6.3 - 7.9 g/dL 01/19/2025 10:06 AM EDT [facility] Albumin, Plasma 3.4(L) 3.5 - 5.2 g/dL 01/19/2025 10:06 AM EDT [facility] AST, Plasma 32 10 - 50 U/L 01/19/2025 10:06 AM EDT [facility] ALT, Plasma 50 10 - 50 U/L 01/19/2025 10:06 AM EDT [facility] Alkaline Phosphatase, Plasma 173(H) 40 - 115 U/L 01/19/2025 10:06 AM EDT [facility] Total Bilirubin, Plasma <0.2(L) 0.2 - 1.1 mg/dL 01/19/2025 10:06 AM EDT [facility] eGFRcr 86.7 mL/min/1.7 3m*2 01/19/2025 10:06 AM EDT [facility] Comment:Reported eGFRcr in m L/min/1.73m2 is based the CKD-EPI 2020 equation that does not use a race coefficient. Blood Venous blood specimen / Unknown Venipuncture / Unknown 01/19/2025 8:58 AM EDT 01/19/2025 9:31 AM EDT us Maninder Zhang MD LAB BLOOD ORDERABLES Final Resul t [facility] [address] [place] [address] * (ABNORMAL) CBC and differential (01/19/2025 8:58 AM EDT) WBC Count 21.91(H) 3.70 - 10.30 10*3/uL LAB HEMATOLOGY METHOD 01/19/2025 9:50 AM EDT [facility] RBC Count 3.10(L) 4.60 - 6.10 10*6/uL LAB HEMATOLOGY METHOD 01/19/2025 9:50 AM EDT [facility] HGB 8.9(L) 13.7 - 17.5 g/dL LAB HEMATOLOGY METHOD 01/19/2025 9:50 AM EDT [facility] HCT 29.7(L) 40.0 - 51.0 % LAB HEMATOLOGY METHOD 01/19/2025 9:50 AM EDT [facility] Platelet Count 449(H) 155 - 369 10*3/uL LAB HEMATOLOGY METHOD 01/19/2025 9:50 AM EDT [facility] MCV 96 79 - 98 fL LAB HEMATOLOGY METHOD 01/19/2025 9:50 AM EDT [facility] MCH 28.7 26.0 - 32.0 pg LAB HEMATOLOGY METHOD 01/19/2025 9:50 AM EDT [facility] MCHC 30.0(L) 30.7 - 35.5 g/dL LAB HEMATOLOGY METHOD 01/19/2025 9:50 AM EDT [facility] RDW 19.9(H) 11.5 - 14.5 % LAB HEMATOLOGY METHOD 01/19/2025 9:50 AM EDT [facility] MPV 8.5(L) 8.8 - 12.5 fL LAB HEMATOLOGY METHOD 01/19/2025 9:50 AM EDT [facility] nRBC 0.0 <=0.0 per 100 WBCs LAB HEMATOLOGY METHOD 01/19/2025 9:50 AM EDT [facility] Differential Type Automated LAB HEMATOLOGY METHOD 01/19/2025 9:50 AM EDT [facility] Neutrophils % 90 % LAB HEMATOLOGY METHOD 01/19/2025 9:50 AM EDT [facility] Lymphocytes % 3 % LAB HEMATOLOGY METHOD 01/19/2025 9:50 AM EDT [facility] Monocytes % 6 % LAB HEMATOLOGY METHOD 01/19/2025 9:50 AM EDT [facility] Eosinophils % 0 % LAB HEMATOLOGY METHOD 01/19/2025 9:50 AM EDT [facility] Basophils % 0 % LAB HEMATOLOGY METHOD 01/19/2025 9:50 AM EDT [facility] Immature Granulocytes % 1 % LAB HEMATOLOGY METHOD 01/19/2025 9:50 AM EDT [facility] Neutrophils Absolute 19.43(H) 1.60 - 6.10 10*3/uL LAB HEMATOLOGY METHOD 01/19/2025 9:50 AM EDT [facility] Lymphocytes Absolute 0.70(L) 1.20 - 3.90 10*3/uL LAB HEMATOLOGY METHOD 01/19/2025 9:50 AM EDT [facility] Monocytes Absolute 1.33(H) 0.30 - 0.90 10*3/uL LAB HEMATOLOGY METHOD 01/19/2025 9:50 AM EDT [facility] Eosinophils Absolute 0.08 0.00 - 0.50 10*3/uL LAB HEMATOLOGY METHOD 01/19/2025 9:50 AM EDT [facility] Basophils Absolute 0.07 0.00 - 0.10 10*3/uL LAB HEMATOLOGY METHOD 01/19/2025 9:50 AM EDT [facility] Immature Granulocytes Absolute 0.30(H) 0.00 - 0.06 10*3/uL LAB HEMATOLOGY METHOD 01/19/2025 9:50 AM EDT [facility] Blood Venous blood specimen / Unknown Venipuncture / Unknown 01/19/2025 8:58 AM EDT 01/19/2025 9:35 AM EDT Narrative [facility] - 01/19/2025 9:50 AM EDT Therapeutic decision making should be based on absolute values, rather than percentages. us Maninder Zhang MD LAB BLOOD ORDERABLES Final Resul t [facility] [address] [place] [address] * (ABNORMAL) Hemoglobin A1c (01/19/2025 8:58 AM EDT) Hemoglobin A1c 6.6(H) <5.7 % 01/19/2025 10:31 AM EDT [facility] Blood Venous blood specimen / Unknown Venipuncture / Unknown 01/19/2025 8:58 AM EDT 01/19/2025 9:35 AM EDT Narrative [facility] - 01/19/2025 10:31 AM EDT HA1C Interpretive Data: Diagnosis of Diabetes: Diabetic > or = 6.5% Pre-diabetic 5.7 to 6.4% Non-diabetic < or = 5.6% Glycemic Targets for Type I and Type II Diabetics: Non- Adults <7.0% Adults <6.0% Children and Adolescents <7.5% Source: [employer]. Standards of medical care in diabetes,2017. Diabetes Care.2017:40 (suppl 1):S1-S135. us Maninder Zhang MD LAB BLOOD ORDERABLES Final Resul t [facility] [address] [place] [address] documented in this encounter Visit Diagnoses Diagnosis [...] documented as of this encounter Care Teams Nitric Acid Concentrator Operator Relationship Specialty Start Date End Date Constantine Stiles APRN [address] [place] [address] PCP - General 01/21/23 Farhat Gómez MD [address] [facility] [address] [place] [address] Consulting Physician Radiation Oncology 10/27/24 documented as of this encounter
--- OUTSIDE RECORDS SUMMARY | 2025-01-19 09:11 | XMS_ITS | Encounter Summary ---
Author Organization [facility] Address [address] [place] [address] Care Team Providers Care Machine Clothing Worker Name Role Phone Constantine Stiles APRN Primary Care Provider [phone] Farhat Gómez MD Unavailable Reason for Visit * Episode Based Medications (Routine) - Authorized Specialty Diagnoses / Procedures Referred By Hugo t Referred To Contact Diagnoses Malignant neoplasm of upper lobe of left lung (CMS/HCC) Procedures Pembrolizumab / PACLitaxel / CARBOplatin Every 21 Days Maninder Zhang MD [address] [address] Phone: tel: fax: Maninder Zhang MD [address] [address] Phone: tel: fax: Referral ID Status Reason Start Date Expiration Date V isits Requested Visits Authorized [id number] Authorized 01/19/2025 07/21/2026 1 4 Encounter Details Date Type Department Care Team (Latest Contact Info) Description 01/19/2025 9:11 AM EDT - 01/19/2025 11:59 PM EDT Hospital Encounter [facility] [address] [place] [address] Malignant neoplasm of upper lobe of left lung (CMS/HCC) (Primary Dx) Discharge Disposition: Home or Self Care Social History Tobacco Use Types Packs/Day Years Used Date Smoking Tobacco: Former Cigarettes 2 45.4 1 979 - 02/14/2024 Passive Smoke Exposure: Past Smokeless Tobacco: Never Tobacco Cessation:Counseling Given: Not Answered Alcohol Use Standard Drinks/Week Comments Not Currently 0 (1 standard drink = 0.6 oz pur e alcohol) Sex and Gender Information Value Date Recorded Sex Assigned at Not on file Legal Sex Male 10:53 AM EDT Gender Identity Not on file Sexual Orientation Not on file documented as of this encounter Last Filed Vital Signs Vital Sign Reading Time Taken Comments Blood Pressure 96/62 01/19/2025 2:44 PM EDT Pulse 74 01/19/2025 2:44 PM EDT Temperature 36.6 C (97.9 F) 01/19/2025 11:29 AM EDT Respiratory Rate 18 01/19/2025 9:13 AM EDT Oxygen Saturation 100% 01/19/2025 9:13 AM EDT Inhaled Oxygen Concentration - - Weight 66.5 kg (146 lb 9.7 oz) 01/19/2025 9:13 A M EDT Height 175.3 cm (5' 9 ) 01/19/2025 9:13 AM EDT Body Mass Index 21.65 01/19/2025 9:13 AM EDT documented in this encounter Medications at Time of Discharge albuterol 108 (90 Base) MCG/ACT inhaler Inhale 2 puffs every 6 hours as needed for wheezing or shortness of breath. 02/10/2024 docusate sodium (Colace) 100 MG capsule Take 1 capsule by mouth daily. 01/06/2025 gabapentin (Neurontin) 800 MG tablet Take 1 tablet by mouth 3 times a day. 11/03/2024 guaiFENesin (MUCINEX PO) Take by mouth 2 times a day as needed. OLANZapine (ZyPREXA) 5 MG tablet Take 0.5 tablets by mouth nightly. 15 tablet 01/12/2025 ondansetron (Zofran) 8 MG tabletIndication s:Malignant neoplasm [...] nausea or vomiting. 30 tablet 5 12/20/2024 prochlorperazine (Compazine) 10 MG tabletIndication s:Malignant neoplasm of upper lobe of left lung (CMS/HCC) Take 1 tablet by mouth every 6 hours as needed for nausea or vomiting. 30 tablet 5 01/12/2025 tamsulosin (Flomax) 0.4 MG 24 hr capsule Take by mouth daily. 01/06/2025 Vraylar 1.5 MG capsule Take 1 capsule by mouth daily. 03/09/2024 buprenorphine-na loxone (Suboxone) 8-[address] 1 tablet under the tongue daily. 01/09/2023 5 cyclobenzaprine (Flexeril) 10 MG tablet Take 1 tablet (10 mg) by mouth 2 (two) times a day as needed for muscle spasms. 30 tablet 1 12/06/2024 5 dexamethasone (Decadron) 4 MG tabletIndication s:Malignant neoplasm of upper lobe of left lung (CMS/HCC) Take 2 tablets by mouth daily. Take for 3 days starting the day after chemo. 24 tablet 01/12/2025 5 gabapentin (Neurontin) 600 MG tablet Take 1 tablet (600 mg) by mouth 2 (two) times a day. 12/23/2022 5 ibuprofen 200 MG tablet Take 2 tablets by mouth daily. 5 magnesium citrate 1.745 GM/30ML oral solution drink 296 ML BY MOUTH ONCE NEEDED FOR constipation 01/06/2025 5 nicotine polacrilex (Nicorette) 2 MG gum 07/01/2024 5 senna-docusate sodium (Senokot-S) 8.6-50 MG tablet Take 1 tablet by mouth 2 (two) times a day as needed for constipation. 60 tablet 2 12/01/2024 5 Stiolto Respimat 2.5-2.5 MCG/ACT aerosol solution inhaler 1 (one) time each day. 02/10/2024 documented as of this encounter Miscellaneous Notes * Pharmacy note - Jacky Steele - 01/19/2025 9:30 AM EDT I counseled the patient on their chemotherapy/immunotherapy regimen, which included: pembrolizumab.I provided the patient with a written explanation of the drugs contained in the regimen and their expected side effects, toxicities, and adverse reactions. I gave verbal explanation of the same material and provided methods for self-monitoring. I answered all questions that the patient and/or caregiver had. The patient and/or caregiver demonstrated understanding of the material. -- Jacky Steele, PharmD Candidate 2025 Cosigned by Oli Knowles PharmD at 01/19/2025 11:30 AM EDT Associated attestation - Oli Knowles PharmD - 01/19/2025 11:30 AM EDT I have reviewed patient and agree with student success advisor documented in this encounter Plan of Treatment Upcoming Encounters Date Type Department Care Team ([facility] st Contact Info) Description 03/23/2025 10:30 AM EDT Clinical Support [facility] [address] [facility], [address]nd [place] [address] 03/23/2025 11:00 AM EDT Office Visit [facility] [address] [facility], [address]nd [place] [address] Maninder Zhang MD [address] [facility] [address]ois [facility] [address] [place] [address] 03/23/2025 12:00 PM EDT Appointment [facility] [address] [place] [address] documented as of this encounter Visit Diagnoses Diagnosis Malignant neoplasm of upper lobe of left lung (CMS/HCC)- Primary documented in this encounter Administered Medications Inactive Administered Medications - up to 3 most recent administrations Medication Order MAR Action Action Date Dose Rate Site CARBOplatin (Paraplatin) 590 mg in sodium chloride 0.9 % 250 mL IVPB 590 mg (rounded from 587.4 mg, Target AUC = 6), Intravenous, at 708 mL/hr, Administer over 30 Minutes, Once, Hazardous Drug-Tier 1 Precautions. Dispose in BLACK Hazardous Waste Container. Chemotherapy: refer to [id number]., On Fri01/19/25 at 1445, For 1 doseIndications:Malignant neoplasm of upper lobe of left lung (CMS/HCC) New Bag 01/19/2025 3:38 PM EDT 590 mg 708 mL/hr dexamethasone (Decadron) tablet 12 mg 12 mg, Oral, Once, 1 dose, On Fri01/19/25 at 1115, RoutineIndications:Malignant neoplasm of upper lobe of left lung (CMS/HCC) Given 01/19/2025 11:05 AM EDT 12 mg diphenhydrAMINE (Benadryl) injection 25 mg 25 mg, Intravenous, Once, 1 dose, On Fri01/19/25 at 1115, RoutineIndications:Malignant neoplasm of upper lobe of left lung (CMS/HCC) Given 01/19/2025 11:16 AM EDT 25 mg famotidine PF (Pepcid) injection 20 mg 20 mg, Intravenous, Once, 1 dose, On Fri01/19/25 at 1115, RoutineIndications:Malignant neoplasm of upper lobe of left lung (CMS/HCC) Given 01/19/2025 11:05 AM EDT 20 mg fosaprepitant (Emend) 150 mg in sodium chloride 255 mL IVPB 150 mg, Intravenous, Once, 1 dose, On Fri01/19/25 at 1115, Administer over 30 Minutes, RoutineIndications:Malignant neoplasm of upper lobe of left lung (CMS/HCC) New Bag 01/19/2025 11:56 AM EDT 150 mg 560 mL/hr ondansetron ODT (Zofran-ODT) disintegrating tablet 16 mg 16 mg, Oral, Once, 1 dose, On Fri01/19/25 at 1115, RoutineIndications:Malignant neoplasm of upper lobe of left lung (CMS/HCC) Given 01/19/2025 11:05 AM EDT 16 mg PACLitaxel (Taxol) 324 mg in sodium chloride 0.9 % 500 mL IVPB 324 mg (180 mg/m2 1.8 m2 Treatment Plan BSA from Recorded weight), Intravenous, at 206.3 mL/hr, Administer over 3 Hours, Once, Hazardous Drug-Tier 1 Precautions. Dispose in BLACK Hazardous Waste Container. Use 0.2 micron filter. Chemotherapy: refer to [id number]., On Fri01/19/25 at 1145, For 1 doseIndications:Malignant neoplasm of upper lobe of left lung (CMS/HCC) New Bag 01/19/2025 12:33 PM EDT 324 mg 206.3 mL/hr pembrolizumab (Keytruda) 200 mg in sodium chloride 0.9% 100 mL IVPB 200 mg, Intravenous, at 276 mL/hr, Administer over 30 Minutes, Once, Filter Required. Use 0.2 micron filter., On Fri01/19/25 at 1115, For 1 dose, In 100 mL NSIndications:Malignant neoplasm of upper lobe of left lung (CMS/HCC) New Bag 01/19/2025 11:24 AM EDT 200 mg 276 mL/hr documented in this encounter Additional Health Concerns Assessment Noted Time A fall risk assessment has been complete d for the patient 01/19/2025 9:13 AM EDT A Body Mass Index follow-up plan has been documented for the patient 01/19/2025 4:11 PM EDT documented as of this encounter Care Teams Machine Clothing Worker Relationship Specialty Start Date End Date Constantine Stiles APRN [address] [place] [address] PCP - General 01/21/23 Farhat Gómez MD [address] [place] [address] Consulting Physician Radiation Oncology 10/27/24 documented as of this encounter
--- OUTSIDE RECORDS SUMMARY | 2025-02-09 11:15 | XMS_ITS | Encounter Summary ---
Author Organization Healthcare Address [address] [place] [address] Care Team Providers Care Landfill Attendant Name Role Phone Constantine Stiles APRN Primary Care Provider [phone] Farhat Gómez MD Unavailable Reason for Visit * Reason Comments Labs Encounter Details Date Type Department Care Team ([facility] Contact Info) Description 02/09/2025 11:15 AM EDT Clinical Support Pav [facility] [address] [place] [phone] Social History Tobacco Use Types Packs/Day Years [...] on file documented as of this encounter Functional Status * Calculated C-SSRS Risk Score (Lifetime/Recent) Answer Date of Assessment Author No Risk Indicated 02/09/2025 11:17 AM EDT Rito Light * Question Answer Date of Assessment Author 1. Wish to be (Past 1 Month) No 025 11:17 AM EDT Rito Rader R 2. Non-Specific Active Suici ester Thoughts (Past 1 Month) No 02/09/2025 11:17 AM EDT Prasanth, Ph oenix R 6. Suicidal Behavior (Lifetime) No 11:17 AM EDT Rito Rader documented as of this encounter Plan of Treatment Upcoming Encounters Date Type Department Care Team (Late st Contact Info) Description 03/23/2025 10:30 AM EDT Clinical Support Pav [facility] [address] [place] [phone] 03/23/2025 11:00 AM EDT Office Visit Pav [facility] [address] [place] [phone] Maninder Zhang MD [address] [place] [address] 03/23/2025 12:00 PM EDT Appointment [facility] Infusion [address] [place] [phone] documented as of this encounter Visit Diagnoses Not on filedocumented in this encounter Additional Health Concerns Assessment Noted Time A fall risk assessment has been complete d for the patient 02/09/2025 1:33 PM EDT A Body Mass Index follow-up plan has been documented for the patient 01/19/2025 4:11 PM EDT documented as of this encounter Care Teams Landfill Attendant Relationship Specialty Start Date End Date Constantine Stiles APRN [address] [place] [id number] PCP - General 01/21/23 Farhat Gómez MD [address] [place] [address] Consulting Physician Radiation Oncology 10/27/24 documented as of this encounter
--- OUTSIDE RECORDS SUMMARY | 2025-02-09 11:30 | XMS_ITS | Encounter Summary ---
Author Organization Healthcare Address [address] [place] [address] Care Team Providers Care Clerk To Justice Name Role Phone Constantine Stiles APRN Primary Care Provider [phone] Farhat Gómez MD Unavailable Reason for Visit * Reason Comments Follow-up * Episode Based Medications (Routine) - Authorized Specialty Diagnoses / Procedures Referred By Contmanjula t Referred To Contact Diagnoses Malignant neoplasm of upper lobe of left lung (CMS/HCC) Procedures Pembrolizumab / PACLitaxel / CARBOplatin Every 21 Days Maninder Zhang MD [address] [facility] Shannan Dubosi [address] [address] Phone: tel: fax: Maninder Zhang MD [address] [facility] Shannan Dubois [address] [address] Phone: tel: fax: Referral ID Status Reason Start Date Expiration Date V isits Requested Visits Authorized [id number] Authorized 01/19/2025 07/21/2026 1 4 Encounter Details Date Type Department Care Team (Late st Contact Info) Description 02/09/2025 11:30 AM EDT Office Visit Pav [facility] Res[facility] [address] [facility], [address]nd [place] [address] Elsa Judge APRN [address] [facility] [address] [place] [address] Malignant neoplasm of upper lobe of left lung (CMS/HCC) (Primary Dx); Dyspnea on exertion; Chemotherapy induced nausea and vomiting Social History Tobacco Use Types Packs/Day Years [...] Sign Reading Time Taken Comments Blood Pressure 91/63 02/09/2025 11:13 AM EDT Pulse 108 02/09/2025 11:13 AM EDT Temperature 36.4 C (97.6 F) 02/09/2025 11:13 AM EDT Respiratory Rate 18 02/09/2025 11:13 AM EDT Oxygen Saturation 94% 02/09/2025 11:13 AM EDT Inhaled Oxygen Concentration - - Weight 62.8 kg (138 lb 7.2 oz) 02/09/2025 11:13 AM EDT Height - - Body Mass Index 20.45 01/19/2025 9:13 AM EDT documented in this encounter Functional Status * Calculated C-SSRS Risk Score (Lifetime/Recent) Answer Date of Assessment Author No Risk Indicated 02/09/2025 11:17 AM EDT Suly Lightenix R * Question Answer Date of Assessment Author 1. Wish to be (Past 1 Month) No 025 11:17 AM EDT Suly Raderenix R 2. Non-Specific Active Suici ester Thoughts (Past 1 Month) No 02/09/2025 11:17 AM EDT Lawrence Radernix R 6. Suicidal Behavior (Lifetime) No 11:17 AM EDT Suly Raderenix R documented as of this encounter Miscellaneous Notes * Progress Notes - Elsa Judge APRN - 02/09/2025 1:00 PM EDT Patient Information Patient Name: Bryson Teixeira Jr. Date of : 1965 REFERRING PHYSICIAN: Maninder Zhang MD [address] [place] [address] [address] Encounter Date: 02/09/25 Patient Care Team: Constantine Stiles APRN as PCP - General Farhat Gómez MD as Consulting Physician (Radiation Oncology) Context: Dr. Zhang was asked to see [...] to discuss whether additional treatment is indicated. Oncology Diagnosis and Treatment History: Oncology History [...] (12/15/2024), 84 mg (12/01/2024), 84 mg (12/22/2024) 01/19/2025 - Chemotherapy CARBOplatin (Paraplatin) 590 mg in sodium chloride 0.9 % 250 mL IVPB, 590 mg, Intravenous, Once, 1 of 4 cycles Administration: 590 mg (01/19/2025) PACLitaxel (Taxol) 324 mg in sodium chloride 0.9 % 500 mL IVPB, 180 mg/m2 = 324 mg (90 % of original dose 200 mg/m2), Intravenous, Once, 1 of 4 cycles Dose modification: 180 mg/m2 (original dose 200 mg/m2, Cycle 1) Administration: 324 mg (01/19/2025) pembrolizumab (Keytruda) 200 mg in sodium chloride 0.9% 100 mL IVPB, 200 mg, Intravenous, Once, 1 of 4 cycles Administration: 200 mg (01/19/2025) fosaprepitant (Emend) 150 mg in sodium chloride 255 mL IVPB, 150 mg, Intravenous, Once, 1 of 4 cycles Administration: 150 mg (01/19/2025) Squamous cell carcinoma of left lung 03/10/2024 [...] Maninder Zhang MD on 10/28/2024 Interval History Here today with his for follow up. Has been having some dizziness & lightheadedness upon standing, no recent falls. Has some shortness of breath with exertion & a dry cough. Had some nausea without vomiting a few days after infusion. States he's had a nodule on his left upper chest forthe past month. Has bilateral lower extremity neuropathy. Denies fever, vision changes, headaches, tinnitus, oral lesions, diarrhea/constipation, edema, rash. A comprehensive 14 point ROS was elicited and was negative except as noted in HPI. Past Medical, Surgical, Family, and Social History Medical History[1] Surgical History[2] Family History[3] Social History[4] Allergies & Medications: Allergies[5] Current Medications[6] Objective Visit Vitals BP 91/63 (BP Location: Left arm, Patient Position: Sitting, BP Cuff Size: Adult) Pulse 108 Temp 36.4 ??C (97.6 ??F) (Oral) Wt 62.8 kg (138 lb 7.2 oz) SpO2 94% BMI 20.45 kg/m?? ECOG 1 Physical Exam HENT: Head: Normocephalic. Mouth/Throat: Mouth: Mucous membranes are moist. Eyes: Conjunctiva/sclera: Conjunctivae normal. Cardiovascular: Rate and Rhythm: Regular rhythm. Tachycardia present. Heart sounds: Normal heart sounds. Pulmonary: Effort: Pulmonary effort is normal. Breath sounds: Normal breath sounds. Abdominal: Palpations: Abdomen is soft. Musculoskeletal: General: Normal range of motion. Cervical back: Normal range of motion. Skin: General: Skin is warm and dry. Comments: Nodule on left upper chest (image in media). Neurological: General: No focal deficit present. Mental Status: He is alert and oriented to person, place, and time. Mental status is at baseline. Psychiatric: Mood and Affect: Mood normal. Behavior: Behavior normal. Thought Content: Thought content normal. Judgment: Judgment normal. Labs: Lab Results Component Value Date WBC 15.60 (H) 02/09/2025 HGB 8.7 (L) 02/09/2025 HCT 28.2 (L) 02/09/2025 MCV 95 02/09/2025 PLT 212 02/09/2025 Lab Results Component Value Date NEUTROABS 13.02 (H) 02/09/2025 Lab Results Component Value Date GLUCOSE 132 (H) 02/09/2025 BUN 10 02/09/2025 CREATININE 0.81 02/09/2025 BCR 12 02/09/2025 NA 133 (L) 02/09/2025 K 4.2 02/09/2025 CL 98 02/09/2025 CO2 22 02/09/2025 ALBUMIN 3.4 (L) 02/09/2025 ALKPHOS 197 (H) 02/09/2025 BILITOT 0.4 02/09/2025 Pathology: Final Diagnosis (no units) Date/Time Value 03/02/2024 [...] FDA-approved test, with diseaseprogression on or after chilkoot-containing chemotherapy. Patients with EGFR or ALK genomic tumor aberrations should have disease progression on FDA-approved therapy for these aberrations prior to rec eiving Pembrolizumab. PD-L1 IHC serves as a complementary diagnostic in regards to other PD-L1/IA-9-rovoafrzvuwmfiwkn (Nivolumab, Atezolizumab, Durvalumab, etc). Expression level: >Negative for PD-L1 expression (TPS less than 1%) >Positive for PD-L1 expression (TPS 1-49%) >Positive for high PD-L1 expression (TPS greater than or equal to 50%) *PD-L1 IHC 22C3 pharmDx is a FDA-approved medical referral coordinator diagnostic for pembrolizumab performed on Dako Fosubois Stainer using formalin-fixed, paraffin imbedded (FFPE) tissue [...] developed by and are performed at the [facility], [address] [place] [address]. All tests reported here, except those addressing HER2 and PD-L1 expression as predictive markers, have not been cleared by or approved by the US Food and Drug Administration (FDA). The laboratory is regulated under CLIA as qualified to perform high-complexity testing. The tests are used for clinical purposes. They should not be regarded as investigational or for research. Imaging: Dr. Zhang previously visualized the recent imaging and discussed the current radiology findings with the patient in detail and released the report gave copies of the reports to the patient and answeredall questions. CT Chest 06/18/24 IMPRESSION: - Previously noted pulmonary nodules and adenopathy are stable. There is increasing nodularity adjacent to the previously noted left anterior upper lobe nodule, which could represent disease progression, or could be infectious or fibrotic in etiology. Recommend attention on follow-up. PET/CT may behelpful for further evaluation. PET/CT 10/15/24 IMPRESSION: - Significant disease progression when compared to 01/19/2024 PET/CT with increase in bulk and metabolic activity of the left upper lobe neoplastic primary as well as enlarging and new ipsilateral hilar, prevascular and high left paratracheal/infraclavicular adenopathy as described above. - No metabolically active contralateral hemithoracic or extrathoracic metastatic disease. MRI Head 11/03/24 IMPRESSION: - No evidence of intracranial metastasis. - The mild to moderate scattered T2 hyperintensities within the white matter are non-specific and likely reflect chronic small vessel ischemic disease. They are unlikely to be directly related to thepatient's NSCLC. - Moderate to severe sinusitis is present, predominantly involving the right frontal, ethmoid, and maxillary sinuses. Fluid signal in the mastoid air cells suggests mastoiditis. These findings may beclinically significant and warrant further evaluation and management. - Incidental findings: The suggestion of enhancement along the temporal horn of the right lateral ventricle is most likely pulsation artifact. A T2 bright lesion in the right frontal calvarium likely represents a hemangioma. - Recommendation: Correlate these findings with the patient's clinical presentation and overall cancer staging. CT Chest 01/10/25 IMPRESSION: - Previously discrete lesions are now confluent, from the left hilum to the AP window to the prevascular mediastinum, interval increase in maximum diameter, 16 mm. - Anterior left upper pulmonary lobe pericystic nodule has increased, now 19 x 11 mm. - Posterior left upper pulmonary lobe nodule has minimally decreased in size in the interval. - New left upper renal pole 25 mm hypodensity with irregular-appearing margins; recommend dedicatedevaluation such as US or MR abdomen without and with contrast renal protocol. Assessment/Plan Bryson Teixeira Jr. is a 59 [...] disease stability. The cancer was staged at yV3P1H6.Other small nodules will be watched. And his case was also discussed in the multiD conference. However, recent PET on 10/15/24 showed PD with involvement of N2 node on the left. Chemoradiation was started on 11/17/24. 1. Cancer management : Early stage lung cancer- [id number] 02/2024. 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 - On tox check on 12/08, he is tolerating [...] of chemotherapy given elevated BG of 209. Plan 02/09/25 - Continue with C2 today - RTC in 3 weeks, scheduled 03/02/25 2. Dysphagia - Complains of six-month history of dysphagia, patient initially had weight loss associated with lung cancer or/dysphagia currently the weight is been stable - He had barium swallow which showed concern of hiatal hernia which needs to be confirmed with endoscopy. - With a history of smoking and lung cancer, CT neck and soft tissue was ordered and done on 07/08 which did not show any evidence of disease elsewhere. - Discuss the importance of getting endoscopy to rule out any esophageal lesions or stricture - Patient would get referral to GI from primary care. - 7 lb weight loss since last visit 3. Molecular studies - Will proceed with CARIS testing as patient has progressed to stage IV metastatic disease. 4. Clinical Trials - Will keep in mind in the future - Not eligible for TORY-008 or JCT356 at present. 5. At Risk of Infection [...] by PCP). 6. Supportive Care Weight loss- Home Health Clinical Supervisor consult today (weight trend is DOWN). Will start low dose olanzapine. Anticipated NV related to chemotherapy- PRN antiemetics per protocol-- asymptomatic currently. Tobacco cessation counseling -- receptive, encouraged. TTOP. 7. Hyperglycemia - Elevated BG on multiple lab draws. Will collect HgbA1C prior to first round of chemo/immuno. If elevated will refer to primary care for management. 8. Left upper chest nodule x1 month - Fine needle aspiration obtained on 02/09/25 9. Dehydrated - BP lower & tachycardia - 1 liter IVF given today Patient was discussed with Dr. Zhang, who assisted with formulation of the plan as described. Elsa Judge APRN [1] Past Medical History: Diagnosis Date COPD (chronic obstructive pulmonary disease) (CMS/HCC) Dental disease full dentures Hip pain Hip pain, acute, right Leg pain Lower back pain Shortness of breath Wears dentures [2] Past Surgical History: Procedure Laterality Date BACK SURGERY N/A [3] Family History Problem Relation Name Age of Onset Heart Problem Mother Colon cancer Brother Liver cancer Brother Cancer Other Heart Problem Other Hypertension Other Stroke Other [4] Social History Socioeconomic History Marital status: Tobacco Use Smoking status: Former Current packs/day: 0.00 Average packs/day: 2.0 packs/day for 45.4 years (90.8 ttl pk-yrs) Types: Cigarettes Start date: 1978 Quit date: 02/14/2024 Years since quittin.9 Passive exposure: Past Smokeless tobacco: Never Vaping Use Vaping status: Never Used Substance and Sexual Activity Alcohol use: Not Currently Drug use: Not Currently Social Drivers of Health Received from [employer] Food Insecurity Received from [employer] Family and Community Support [5] No Known Allergies [6] Current Outpatient Medications: albuterol 108 (90 Base) MCG/ACT inhaler, if needed., Disp: , Rfl: buprenorphine-naloxone (Suboxone) 8-2 MG SL tablet, Place 1 tablet under the tongue daily., Disp: ,Rfl: cyclobenzaprine (Flexeril) 10 MG tablet, TAKE ONE TABLET BY MOUTH 2 TIMES A DAY NEEDED FOR MUSCLE SPASMS, Disp: 30 tablet, Rfl: 1 dexamethasone (Decadron) 4 MG tablet, Take 2 tablets by mouth daily. Take for 3 days starting the day after chemo., Disp: 24 tablet, Rfl: 0 docusate sodium (Colace) 100 MG capsule, Take 1 capsule by mouth daily., Disp: , Rfl: gabapentin (Neurontin) 600 MG tablet, Take 1 tablet (600 mg) by mouth 2 (two) times a day. (Patientnot taking: Reported on 01/12/2025), Disp: , Rfl: gabapentin (Neurontin) 800 MG [...] 2 MG gum, , Disp: , Rfl: OLANZapine (ZyPREXA) 5 MG tablet, Take 0.5 tablets by mouth nightly., Disp: 15 tablet, Rfl: 0 ondansetron (Zofran) 8 MG tablet, Take 1 [...] or vomiting., Disp: 30 tablet, Rfl: 5 prochlorperazine (Compazine) 10 MG tablet, Take 1 [...] mg) by mouth daily., Disp: , Rfl: * Progress Notes - Chrissy Wells, PharmD - 02/09/2025 11:30 AM EDT Pharmacy Hematology/Oncology Treatment Note Bryson [...] days [x] Follow-Up Clinical Review for Cycle 2 [] Follow-Up Clinical Review for Continuous Oral Therapy Interval History: 01/12/25: Mr. Teixeira completed 6 cycles of Carbo/Taxol/XRT, and scans unfortunately show progressionwith new renal pole hypodensity. He was consented and counseled on q3w Carbo/Taxol/Pembro and will begin treatment on 01/19. Caris is unable to be obtained due to not having enough tissue, so will drawliquid biopsy with guardant prior to treatment next week. He is experiencing poor appetite and was started on olanzapine 2.5 mg nightly. Labs to be re-evaluated by pharmacy satellite prior to treatment on 01/19/25. 02/09/25: Mr. Teixeira has a nodule on his chest that developed about a month ago, so pathology will biopsy it today in clinic. He has lost weight and has decreased appetite, so will give fluids with treatment today. Labs reviewed and okay to proceed with treatment. Today's Wt: Wt Readings from Last 1 Encounters: 02/09/25 62.8 kg (138 lb 7.2 oz) Dosing Wt: 65.8 kg Dosing Ht: 175.3 cm DosingBSA: 1.86 m2 Recent Labs: Lab Results Component Value Date WBC 15.60 (H) 02/09/2025 HGB 8.7 (L) 02/09/2025 HCT 28.2 (L) 02/09/2025 MCV 95 02/09/2025 PLT 212 02/09/2025 Lab Results Component Value Date GLUCOSE 132 (H) 02/09/2025 CALCIUM 10.3 (H) 02/09/2025 NA 133 (L) 02/09/2025 K 4.2 02/09/2025 CO2 22 02/09/2025 CL 98 02/09/2025 BUN 10 02/09/2025 CREATININE 0.81 02/09/2025 Lab Results Component Value Date ALT 30 02/09/2025 AST 21 02/09/2025 ALKPHOS 197 (H) 02/09/2025 BILITOT 0.4 02/09/2025 Lab Results Component Value Date NEUTROABS 13.02 (H) 02/09/2025 Lab Results Component Value Date MG 2.0 02/09/2025 Lab Results Component Value Date TSH 3.63 01/19/2025 Lab Results Component Value Date URINEPRO Negative 04/03/2023 Vitals: Visit Vitals BP 91/63 (BP Location: Left arm, Patient Position: Sitting, BP Cuff Size: Adult) Pulse 108 Temp 36.4 ??C (97.6 ??F) (Oral) Resp 18 Other Relevant Monitoring: for carboplatin: ActBW (BMI <25): 62.8 kg SCr: Results from last 7 days Lab Units 02/09/25 1122 CREATININE mg/dL 0.81 eCrCl: 101.7 ml/min Treatment/Therapy Plan: Carboplatin AUC 6 IV Day 1 Paclitaxel 180 mg/m2 (324 mg) IV Day 1 Pembrolizumab 200 mg (flat dose) IV Day 1 Every 21 Days [x] Taxol dose reduced 10% for predicted tolerability Current Treatment Plan History: Carbo/Taxol/Pembro Cycle 1: 01/19/25 Cycle 2: 02/09/25 Prior Treatment History: SBRT Complete 04/14/24 Carbo/Taxol/XRT Cycle 1: 11/17/34 Cycle 2: 11/24/24 Cycle 3: 12/01/24 Cycle 4: 12/08/24 Cycle 5: 12/15/24 Cycle 6: 12/22/24 Plan: Patient will return to clinic in 3 weeks. Will follow-up at that time. Pharmacist Attestation: Chrissy Wells, PharmD, BCOP Clinical Oncology Pharmacist documented in this encounter Plan of Treatment Upcoming Encounters Date Type Department Care Team (Late st Contact Info) Description 03/23/2025 10:30 AM EDT Clinical Support Pav [facility] Neck [facility] Respiratory [address] [facility], [address] [place] [address] 03/23/2025 11:00 AM EDT Office Visit Pav [facility] Head[facility] Neck [facility] Respiratory [address] [place] [address] Maninder Zhang MD [address] [facility] [address] [place] [address] 03/23/2025 12:00 PM EDT Appointment PAV H Infusion [address] [place] [address] documented as of this encounter Procedures Procedure Name Priority Date/Time Associated Diagnosis Comments FINE NEEDLE ASPIRATION - CYTOLOGY Routine 02/09/2025 12:17 PM EDT Malignant neoplasm of upper lobe of left lung (CMS/HCC) documented in this encounter Results * Fine needle aspiration (02/09/2025 12:17 PM EDT) Case Report Cytology Case: [id number] Authorizing Provider: Maninder Zhang MD Collected: 02/09/2025 1217 Ordering Location: Pav CC Head, Neck & Received: 02/09/2025 1217 Respiratory Pathologist: Margie Garcia MD Specimen: Other, Fine Needle Aspiration (Specify Site), LEFT CHEST NODULE, SUPERFICIAL FINE NEEDLE ASPIRATION 02/11/2025 9:54 AM EDT [facility] Final Diagnosis CHEST NODULE, LEFT, SUPERFICIAL FINE NEEDLE ASPIRATION: - SUSPICIOUS FOR MALIGNANCY. SEE COMMENT. 02/11/2025 9:54 AM EDT [facility] at 0953 EDT Comment There are several atypical and degenerated squamous cells present, which are suspicious for squamous cell carcinoma. However, in the setting of a cystic lesion (with approximately 4 ml of straw-colored fluid obtained), the epithelial atypia could be reactive/degener ative, rather than neoplastic. 02/11/2025 9:54 AM EDT [facility] Immediate Evaluation FNA performed and/or attended during critical time by staff pathologist: Dr. Garcia/PEG A time out procedure was performed by our service for patient and site verification. Patient tolerated 3 needle passes well without injected anesthesia or known complications. Immediate evaluation performed by: Dr. Garcia/PEG Evaluation episode #1: lesional This service has been rendered in part by a resident. A pathologist has personally reviewed the slides/tissue and has rendered and is responsible for diagnosis for the diagnosis that appears on the report. 02/11/2025 9:54 AM EDT [facility] Clinical History squamous cell lung cancer 02/11/2025 9:54 AM EDT [facility] Procedure Type Superficial 9:54 AM EDT [facility] Size/Descripti on of Lesion Left Chest 02/11/2025 9:54 AM EDT [facility] Cancer History Yes 02/11/2025 9:54 AM EDT [facility] Gross Description A. LEFT CHEST NODULE, SUPERFICIAL FINE NEEDLE ASPIRATION 5 ml's tinted needle rinse fluid processed as Thinprep for complete evaluation of sample. Received 3 diff quick slides and 3 pap slides. 02/11/2025 9:54 AM EDT [facility] Note: A resident was involved in the service. I attest I examined the relevant preparations for the specimens and confirmed the diagnosis or interpretation. 02/11/2025 9:54 AM EDT [facility] Clinical Information C34.12 - Malignant neoplasm of upper lobe of left lung (CMS/HCC) [ICD-10-CM] 02/11/2025 9:54 AM EDT [facility] Fine Needle Aspirate Fine needle biopsy / Unknown Non-blood Collection / Unknown 02/09/2025 12:17 PM EDT 02/09/2025 12:17 PM EDT us Maninder Zhang MD LAB CYTOLOGY ORDERABLES Final Re sult [facility] [address] [place] [address] documented in this encounter Visit Diagnoses Diagnosis Malignant neoplasm of upper lobe of left lung (CMS/HCC)- Primary Dyspnea on exertion Other dyspnea and respiratory abnormality Chemotherapy induced nausea and vomiting documented in this encounter Additional Health Concerns Assessment Noted Time A fall risk assessment has been complete d for the patient 02/09/2025 1:33 PM EDT A Body Mass Index follow-up plan has been documented for the patient 01/19/2025 4:11 PM EDT documented as of this encounter Care Teams Clerk To Justice Relationship Specialty Start Date End Date Constantine Stiles APRN [address] [place] [address] PCP - General 01/21/23 Farhat Gómez MD [address] [facility] [address] [place] [address] Consulting Physician Radiation Oncology 10/27/24 documented as of this encounter
--- OUTSIDE RECORDS SUMMARY | 2025-02-09 12:30 | XMS_ITS | Encounter Summary ---
Author Organization [facility] Address [address] [place] [address] Care Team Providers Care Incubator Operator Name Role Phone Constantine Stiles APRN Primary Care Provider [phone] Farhat Gómez MD Unavailable Reason for Visit * Episode Based Medications (Routine) - Authorized Specialty Diagnoses / Procedures Referred By Hugo t Referred To Contact Diagnoses Malignant neoplasm of upper lobe of left lung (CMS/HCC) Procedures Pembrolizumab / PACLitaxel / CARBOplatin Every 21 Days Maninder Zhang MD [address] [address] Phone: tel: fax: Maninder Zhang MD [address] [address] Phone: tel: fax: Referral ID Status Reason Start Date Expiration Date V isits Requested Visits Authorized [id number] Authorized 01/19/2025 07/21/2026 1 4 Encounter Details Date Type Department Care Team (Latest Contact Info) Description 02/09/2025 12:30 PM EDT - 02/09/2025 11:59 PM EDT Hospital Encounter [facility] [address] [place] [address] Malignant neoplasm of upper lobe of left [...] [facility] [address] [facility], [address] [place] [address] 03/23/2025 11:00 AM EDT Office Visit [facility] [address] [facility] [place] [address] Maninder Zhang MD [address] [facility] Shannan Dubois [facility] [address] [place] [address] 03/23/2025 12:00 PM EDT Appointment [facility] [address] [place] [address] documented as of this encounter Procedures Procedure [...] CBC and differential (02/09/2025 11:22 AM EDT) [facility] Signature WBC Count 15.60(H) 3.70 - 10.30 10*3/uL LAB HEMATOLOGY METHOD 02/09/2025 11:48 AM EDT [facility] RBC Count 2.97(L) 4.60 - 6.10 10*6/uL LAB HEMATOLOGY METHOD 02/09/2025 11:48 AM EDT [facility] HGB 8.7(L) 13.7 - 17.5 g/dL LAB HEMATOLOGY METHOD 02/09/2025 11:48 AM EDT [facility] HCT 28.2(L) 40.0 - 51.0 % LAB HEMATOLOGY METHOD 02/09/2025 11:48 AM EDT [facility] Platelet Count 212 155 - 369 10*3/uL LAB HEMATOLOGY METHOD 02/09/2025 11:48 AM EDT [facility] MCV 95 79 - 98 fL LAB HEMATOLOGY METHOD 02/09/2025 11:48 AM EDT [facility] MCH 29.3 26.0 - 32.0 pg LAB HEMATOLOGY METHOD 02/09/2025 11:48 AM EDT [facility] MCHC 30.9 30.7 - 35.5 g/dL LAB HEMATOLOGY METHOD 02/09/2025 11:48 AM EDT [facility] RDW 18.6(H) 11.5 - 14.5 % LAB HEMATOLOGY METHOD 02/09/2025 11:48 AM EDT [facility] MPV 9.8 8.8 - 12.5 fL LAB HEMATOLOGY METHOD 02/09/2025 11:48 AM EDT [facility] nRBC 0.0 <=0.0 per 100 WBCs LAB HEMATOLOGY METHOD 02/09/2025 11:48 AM EDT [facility] Differential Type Automated LAB HEMATOLOGY METHOD 02/09/2025 11:48 AM EDT [facility] Neutrophils % 84 % LAB HEMATOLOGY METHOD 02/09/2025 11:48 AM EDT [facility] Lymphocytes % 7 % LAB HEMATOLOGY METHOD 02/09/2025 11:48 AM EDT [facility] Monocytes % 8 % LAB HEMATOLOGY METHOD 02/09/2025 11:48 AM EDT [facility] Eosinophils % 0 % LAB HEMATOLOGY METHOD 02/09/2025 11:48 AM EDT [facility] Basophils % 0 % LAB HEMATOLOGY METHOD 02/09/2025 11:48 AM EDT [facility] Immature Granulocytes % 1 % LAB HEMATOLOGY METHOD 02/09/2025 11:48 AM EDT [facility] Neutrophils Absolute 13.02(H) 1.60 - 6.10 10*3/uL LAB HEMATOLOGY METHOD 02/09/2025 11:48 AM EDT [facility] Lymphocytes Absolute 1.15(L) 1.20 - 3.90 10*3/uL LAB HEMATOLOGY METHOD 02/09/2025 11:48 AM EDT [facility] Monocytes Absolute 1.19(H) 0.30 - 0.90 10*3/uL LAB HEMATOLOGY METHOD 02/09/2025 11:48 AM EDT [facility] Eosinophils Absolute 0.01 0.00 - 0.50 10*3/uL LAB HEMATOLOGY METHOD 02/09/2025 11:48 AM EDT [facility] Basophils Absolute 0.05 0.00 - 0.10 10*3/uL LAB HEMATOLOGY METHOD 02/09/2025 11:48 AM EDT [facility] Immature Granulocytes Absolute 0.18(H) 0.00 - 0.06 10*3/uL LAB HEMATOLOGY METHOD 02/09/2025 11:48 AM EDT [facility] Blood Venous blood specimen / Unknown Venipuncture / Unknown 02/09/2025 11:22 AM EDT 02/09/2025 11:34 AM EDT Narrative [facility] - 02/09/2025 11:48 AM EDT Therapeutic decision making should be based on absolute values, rather than percentages. us Maninder Zhang MD LAB BLOOD ORDERABLES Final Resul t [facility] [address] [place] [address] * (ABNORMAL) Comprehensive metabolic panel (02/09/2025 11:22 AM EDT) [facility] Glucose, Plasma 132(H) 74 - 99 mg/dL 02/09/2025 12:10 PM EDT [facility] BUN, Plasma 10 8 - 23 mg/dL 02/09/2025 12:10 PM EDT [facility] Creatinine, Plasma 0.81 0.70 - 1.20 mg/dL 02/09/2025 12:10 PM EDT [facility] BUN/Creatinine Ratio 12 02/09/2025 12:10 PM EDT [facility] Sodium, Plasma 133(L) 136 - 145 mmol/L 02/09/2025 12:10 PM EDT [facility] Potassium, Plasma 4.2 3.6 - 4.9 mmol/L 02/09/2025 12:10 PM EDT [facility] Chloride, Plasma 98 97 - 107 mmol/L 02/09/2025 12:10 PM EDT [facility] CO2, Plasma 22 22 - 29 mmol/L 02/09/2025 12:10 PM EDT [facility] Anion Gap 13 6 - 16 mmol/L 02/09/2025 12:10 PM EDT [facility] Total Calcium, Plasma 10.3(H) 8.9 - 10.2 mg/dL 02/09/2025 12:10 PM EDT [facility] Total Protein 7.6 6.3 - 7.9 g/dL 02/09/2025 12:10 PM EDT [facility] Albumin, Plasma 3.4(L) 3.5 - 5.2 g/dL 02/09/2025 12:10 PM EDT [facility] AST, Plasma 21 10 - 50 U/L 02/09/2025 12:10 PM EDT [facility] ALT, Plasma 30 10 - 50 U/L 02/09/2025 12:10 PM EDT [facility] Alkaline Phosphatase, Plasma 197(H) 40 - 115 U/L 02/09/2025 12:10 PM EDT [facility] Total Bilirubin, Plasma 0.4 0.2 - 1.1 mg/dL 02/09/2025 12:10 PM EDT [facility] eGFRcr 100.3 mL/min/1.7 3m*2 02/09/2025 12:10 PM EDT [facility] Comment:Reported eGFRcr in m L/min/1.73m2 is based the CKD-EPI 2020 equation that does not use a race coefficient. Blood Venous blood specimen / Unknown Venipuncture / Unknown 02/09/2025 11:22 AM EDT 02/09/2025 11:40 AM EDT Maninder Zhang MD LAB BLOOD ORDERABLES Final Resul t Performing Organization Address City/[facility]/ZIP Co de Phone Number [facility] [address] [place] [address] * Magnesium (02/09/2025 11:22 AM EDT) Magnesium, Plasma 2.0 1.9 - 2.4 mg/dL 02/09/2025 12:10 PM EDT [facility] Blood Venous blood specimen / Unknown Venipuncture / Unknown 02/09/2025 11:22 AM EDT 02/09/2025 11:40 AM EDT Maninder Zhang MD LAB BLOOD ORDERABLES Final Resul t Performing Organization Address City/[facility] Co de Phone Number [facility] [address] [place] [address] documented in this encounter Visit Diagnoses Diagnosis [...] documented as of this encounter Care Teams Incubator Operator Relationship Specialty Start Date End Date Constantine Stiles APRN [address] [place] [id number] PCP - General 01/21/23 Farhat Gómez MD [address] [place] [phone] Consulting Physician Radiation Oncology 10/27/24 documented as of this encounter
--- OUTSIDE RECORDS SUMMARY | 2025-03-02 08:45 | XMS_ITS | Encounter Summary ---
Author Organization Healthcare Address [address] [place] [address] Care Team Providers Care Fusion Juncture Grinder Name Role Phone Constantine Stiles APRN Primary Care Provider [phone] Farhat Gómez MD Unavailable Reason for Visit * Reason Comments Labs Peripheral stick, le ft arm Encounter Details Date Type Department Care Team (Latest Contact Info) Description 03/02/2025 8:45 AM EDT Clinical Support Pav [facility] [address] [place] [phone] Malignant neoplasm of upper lobe of left [...] Upcoming Encounters Date Type Department Care Team ([facility] st Contact Info) Description 03/23/2025 10:30 AM EDT Clinical Support Pav [facility] [address] [phone] 03/23/2025 11:00 AM EDT Office Visit Pav [facility] [address] [phone] Maninder Zhang MD [address] [facility] Shannan Dubois [address] [phone] 03/23/2025 12:00 PM EDT Appointment [facility] H Infusion [address] [place] [address] documented as of this encounter Procedures Procedure [...] - 4.20 uIU/mL 03/02/2025 9:56 AM EDT [facility] Blood Venous blood specimen / Unknown Venipuncture / Unknown 03/02/2025 9:07 AM EDT 03/02/2025 9:20 AM EDT Maninder Zhang MD LAB BLOOD ORDERABLES Final Resul t Performing Organization Address City/[facility]/ZIP Co de Phone Number [facility] [address] [place] [address] * Magnesium (03/02/2025 9:07 AM EDT) Magnesium, Plasma 1.9 1.9 - 2.4 mg/dL 03/02/2025 9:56 AM EDT [facility] Blood Venous blood specimen / Unknown Venipuncture / Unknown 03/02/2025 9:07 AM EDT 03/02/2025 9:20 AM EDT Maninder Zhang MD LAB BLOOD ORDERABLES Final Resul t [facility] [address] [place] [address] * (ABNORMAL) Comprehensive metabolic panel (03/02/2025 9:07 AM EDT) Glucose, Plasma 232(H) 74 - 99 mg/dL 03/02/2025 9:55 AM EDT [facility] BUN, Plasma 7(L) 8 - 23 mg/dL 03/02/2025 9:55 AM EDT [facility] Creatinine, Plasma 0.76 0.70 - 1.20 mg/dL 03/02/2025 9:55 AM EDT [facility] BUN/Creatinine Ratio 9 03/02/2025 9:55 AM EDT [facility] Sodium, Plasma 137 136 - 145 mmol/L 03/02/2025 9:55 AM EDT [facility] Potassium, Plasma 4.6 3.6 - 4.9 mmol/L 03/02/2025 9:55 AM EDT [facility] Chloride, Plasma 100 97 - 107 mmol/L 03/02/2025 9:55 AM EDT [facility] CO2, Plasma 23 22 - 29 mmol/L 03/02/2025 9:55 AM EDT [facility] Anion Gap 14 6 - 16 mmol/L 03/02/2025 9:55 AM EDT [facility] Total Calcium, Plasma 9.8 8.9 - 10.2 mg/dL 03/02/2025 9:55 AM EDT [facility] Total Protein 7.4 6.3 - 7.9 g/dL 03/02/2025 9:55 AM EDT [facility] Albumin, Plasma 3.3(L) 3.5 - 5.2 g/dL 03/02/2025 9:55 AM EDT [facility] AST, Plasma 25 10 - 50 U/L 03/02/2025 9:55 AM EDT [facility] ALT, Plasma 43 10 - 50 U/L 03/02/2025 9:55 AM EDT [facility] Alkaline Phosphatase, Plasma 205(H) 40 - 115 U/L 03/02/2025 9:55 AM EDT [facility] Total Bilirubin, Plasma 0.5 0.2 - 1.1 mg/dL 03/02/2025 9:55 AM EDT [facility] eGFRcr 102.3 mL/min/1.7 3m*2 03/02/2025 9:55 AM EDT [facility] Comment:Reported eGFRcr in m L/min/1.73m2 is based the CKD-EPI 2020 equation that does not use a race coefficient. Blood Venous blood specimen / Unknown Venipuncture / Unknown 03/02/2025 9:07 AM EDT 03/02/2025 9:20 AM EDT us Maninder Zhang MD LAB BLOOD ORDERABLES Final Resul t [facility] [address] [place] [address] * (ABNORMAL) CBC and differential (03/02/2025 9:07 AM EDT) WBC Count 19.59(H) 3.70 - 10.30 10*3/uL LAB HEMATOLOGY METHOD 03/02/2025 11:36 AM EDT [facility] RBC Count 2.43(L) 4.60 - 6.10 10*6/uL LAB HEMATOLOGY METHOD 03/02/2025 11:36 AM EDT [facility] HGB 7.1(L) 13.7 - 17.5 g/dL LAB HEMATOLOGY METHOD 03/02/2025 11:36 AM EDT [facility] HCT 24.5(L) 40.0 - 51.0 % LAB HEMATOLOGY METHOD 03/02/2025 11:36 AM EDT [facility] Platelet Count 244 155 - 369 10*3/uL LAB HEMATOLOGY METHOD 03/02/2025 11:36 AM EDT [facility] MCV 101(H) 79 - 98 fL LAB HEMATOLOGY METHOD 03/02/2025 11:36 AM EDT [facility] MCH 29.2 26.0 - 32.0 pg LAB HEMATOLOGY METHOD 03/02/2025 11:36 AM EDT [facility] MCHC 29.0(L) 30.7 - 35.5 g/dL LAB HEMATOLOGY METHOD 03/02/2025 11:36 AM EDT [facility] RDW 17.0(H) 11.5 - 14.5 % LAB HEMATOLOGY METHOD 03/02/2025 11:36 AM EDT [facility] MPV 10.2 8.8 - 12.5 fL LAB HEMATOLOGY METHOD 03/02/2025 11:36 AM EDT [facility] nRBC 0.0 <=0.0 per 100 WBCs LAB HEMATOLOGY METHOD 03/02/2025 11:36 AM EDT [facility] Differential Type Automated LAB HEMATOLOGY METHOD 03/02/2025 11:36 AM EDT [facility] Neutrophils % 89 % LAB HEMATOLOGY METHOD 03/02/2025 11:36 AM EDT [facility] Lymphocytes % 3 % LAB HEMATOLOGY METHOD 03/02/2025 11:36 AM EDT [facility] Monocytes % 5 % LAB HEMATOLOGY METHOD 03/02/2025 11:36 AM EDT [facility] Eosinophils % 0 % LAB HEMATOLOGY METHOD 03/02/2025 11:36 AM EDT [facility] Basophils % 0 % LAB HEMATOLOGY METHOD 03/02/2025 11:36 AM EDT [facility] Immature Granulocytes % 3 % LAB HEMATOLOGY METHOD 03/02/2025 11:36 AM EDT [facility] Neutrophils Absolute 17.37(H) 1.60 - 6.10 10*3/uL LAB HEMATOLOGY METHOD 03/02/2025 11:36 AM EDT [facility] Lymphocytes Absolute 0.52(L) 1.20 - 3.90 10*3/uL LAB HEMATOLOGY METHOD 03/02/2025 11:36 AM EDT [facility] Monocytes Absolute 0.99(H) 0.30 - 0.90 10*3/uL LAB HEMATOLOGY METHOD 03/02/2025 11:36 AM EDT [facility] Eosinophils Absolute 0.00 0.00 - 0.50 10*3/uL LAB HEMATOLOGY METHOD 03/02/2025 11:36 AM EDT [facility] Basophils Absolute 0.04 0.00 - 0.10 10*3/uL LAB HEMATOLOGY METHOD 03/02/2025 11:36 AM EDT [facility] Immature Granulocytes Absolute 0.67(H) 0.00 - 0.06 10*3/uL LAB HEMATOLOGY METHOD 03/02/2025 11:36 AM EDT [facility] Blood Venous blood specimen / Unknown Venipuncture / Unknown 03/02/2025 9:07 AM EDT 03/02/2025 9:21 AM EDT [facility] - 03/02/2025 11:36 AM EDT Therapeutic decision making should be based on absolute values, rather than percentages. us Maninder Zhang MD LAB BLOOD ORDERABLES Final Resul t [facility] [address] [place] [address] documented in this encounter Visit Diagnoses Diagnosis [...] documented as of this encounter Care Teams Fusion Juncture Grinder Relationship Specialty Start Date End Date Constantine Stiles APRN [address] [phone] PCP - General 01/21/23 Farhat Gómez MD [address] [facility] [address] [place] [address] Consulting Physician Radiation Oncology 10/27/24 documented as of this encounter
--- OUTSIDE RECORDS SUMMARY | 2025-03-02 09:00 | XMS_ITS | Encounter Summary ---
Author Organization Healthcare Address [address] [place] [address] Care Team Providers Care Community Engagement Coordinator Name Role Phone Constantine Stiles APRN Primary Care Provider [phone] Farhat Gómez MD Unavailable Reason for Visit * Reason Comments Follow-up * Episode Based Medications (Routine) - Authorized Specialty Diagnoses / Procedures Referred By Contmanjula t Referred To Contact Diagnoses Malignant neoplasm of upper lobe of left lung (CMS/HCC) Procedures Pembrolizumab / PACLitaxel / CARBOplatin Every 21 Days Maninder Zhang MD [address] [address] Phone: tel: fax: Maninder Zhang MD [address] [address] Phone: tel: fax: Referral ID Status Reason Start Date Expiration Date V isits Requested Visits Authorized [id number] Authorized 01/19/2025 07/21/2026 1 4 Encounter Details Date Type Department Care Team (Late st Contact Info) Description 03/02/2025 9:00 AM EDT Office Visit Pav [facility] Respiratory [address], [address] [place] [address] Maninder Zhang MD 800 [facility] [address] [place] [address] Malignant neoplasm of upper lobe of left [...] : 1965 REFERRING PHYSICIAN: Maninder Zhang MD [address] [place] [address] [address] Encounter Date: 03/02/2025 Patient Care Team: Constantine [...] 3, CN II-XII intact. Motor 5/5 in rec therapist, bicep, tricep, dorsi/plantar flexors. affect appropriate, memory [...] FDA-approved test, with diseaseprogression on or after [place]-containing chemotherapy. Patients with EGFR or ALK genomic tumor aberrations should have disease progression on FDA-approved therapy for these aberrations prior to rec eiving Pembrolizumab. PD-L1 IHC serves as a complementary diagnostic in regards to other PD-L1/ST-3-hmonfmquhgrmqrsrh (Nivolumab, Atezolizumab, Durvalumab, etc). Expression level: >Negative for PD-L1 expression (TPS less than 1%) >Positive for PD-L1 expression (TPS 1-49%) >Positive for high PD-L1 expression (TPS greater than or equal to 50%) *PD-L1 IHC 22C3 pharmDx is a FDA-approved invisible braces orthodontist diagnostic for pembrolizumab performed on Dako Clikthroughis Stainer using formalin-fixed, paraffin imbedded (FFPE) tissue [...] developed by and are performed at the [facility], [address] [place] [address]. All tests reported here, except those addressing [...] hemithoracic or extrathoracic metastatic disease. Assessment/Plan Bryson Tiexeira Jr. is a 59 y.o. male light [...] disease stability. The cancer was staged at pK3F6G6.Other small nodules will be watched. And his case was also discussed in the multiD conference. However, recent PET on 10/15/24 showed PD with involvement of N2 node on the left. Chemoradiation was started on 11/17/24. 1. Cancer management : Early stage lung cancer- [id number] 02/2024. -patient was longstanding history of smoking [...] by PCP). 6. Supportive Care Weight loss- Em Physician consult today (weight trend is DOWN). Anticipated [...] follow-up at that time. Pharmacist Attestation: Chrissy Wells PharmD, OP Clinical Oncology Pharmacist documented in this encounter Plan of Treatment Upcoming Encounters Date Type Department Care Team (Late st Contact Info) Description 03/23/2025 10:30 AM EDT Clinical Support Pav [facility] Head[facility] Neck [facility] Respiratory 800 [facility], 2nd [place] [address] 03/23/2025 11:00 AM EDT Office Visit Pav [facility] Head[facility] Neck [facility] Respiratory 800 [facility], 2nd [place] [address] Maninder Zhang MD 800 [facility] Shannan Ramirezrickson [facility] [address] [place] [address] 03/23/2025 12:00 PM EDT Appointment PAV H Infusion [address] [place] [address] documented as of this encounter Visit Diagnoses [...] documented as of this encounter Care Teams Community Engagement Coordinator Relationship Specialty Start Date End Date Constantine Stiles APRN [address] [place], [place] [id number] PCP - General 01/21/23 Farhat Gómez MD 800 [facility] [address] [place] [address] Consulting Physician Radiation Oncology 10/27/24 documented as of this encounter
--- OUTSIDE RECORDS SUMMARY | 2025-03-02 10:30 | XMS_ITS | Encounter Summary ---
Author Organization [facility] Address [address] [place] [address] Care Team Providers Care Chief Radiation Therapist Name Role Phone Constantine Stiles APRN Primary Care Provider [phone] Farhat Gómez MD Unavailable Reason for Visit * Episode Based Medications (Routine) - Authorized Specialty Diagnoses / Procedures Referred By Hugo t Referred To Contact Diagnoses Malignant neoplasm of upper lobe of left lung (CMS/HCC) Procedures Pembrolizumab / PACLitaxel / CARBOplatin Every 21 Days Maninder Zhang MD [address] [address] Phone: tel: fax: Maninedr Zhang MD [address] [address] Phone: tel: fax: Referral ID Status Reason Start Date Expiration Date V isits Requested Visits Authorized [id number] Authorized 01/19/2025 07/21/2026 1 4 Encounter Details Date Type Department Care Team (Latest Contact Info) Description 03/02/2025 10:30 AM EDT - 03/02/2025 11:20 AM EDT Hospital Encounter [facility] H Infusion [address] [place] [address] Malignant neoplasm of upper lobe of left [...] any time in the past 12 m [facility], were you homeless or living in a half-way (including now)? No 03/09/2025 CAGE ASSESSMENT Answer [...] drink first t ashanti in the morning (EYE-AIR BAG STRIPPER) to steady your nerves or to get [...] Pav [facility] Head[facility] Neck [facility] Respiratory 800 [facility], [address]nd [place] [address] 03/23/2025 11:00 AM EDT Office Visit Pav CC Head[facility] Neck & Respiratory 800 [facility], [address] [place] [address] Maninder Zhang MD 800 [facility] Shannan Dubois [facility] [address] [place] [address] 03/23/2025 12:00 PM EDT Appointment [facility] H Infusion [address] [place] [address] documented as of this encounter Procedures Procedure [...] Units (03/02/2025 12:29 PM EDT) Product Code [id number] BLOO D BANK Dispense Status Transfused BLOOD BANK Blood Expiration Date [id number] BLOOD BANK Unit Number [id number] B LOOD BANK Product Blood Type 6200 BLOOD BANK Blood Type A+ BLOOD BANK Crossmatch Compatible BLOOD BANK Other Maninder Zhang MD BLOOD BANK PRODUCT ORDERABLES Fi nal Result Performing Organization Address City/State/[facility] Co de Phone Number BLOOD BANK [address] [place] [address], * Type and Screen (03/02/2025 12:00 PM [...] ORDERABLES F inal Result BLOOD BANK [address] [place] [address], documented in this encounter Visit Diagnoses Diagnosis [...] documented as of this encounter Care Teams Chief Radiation Therapist Relationship Specialty Start Date End Date Constantine Stiles APRN [address] [place] [address] PCP - General 01/21/23 Farhat Gómez MD [address] [place] [address] Consulting Physician Radiation Oncology 10/27/24 documented as of this encounter
--- OUTSIDE RECORDS SUMMARY | 2025-03-02 11:21 | XMS_ITS | Encounter Summary ---
Author Organization [facility] Address [address] [place] [address] Care Team Providers Care Machine Clothing Worker Name Role Phone Constantine Stiles APRN Primary Care Provider [phone] Farhat Gómez MD Unavailable Reason for Visit * Episode Based Medications (Routine) - Authorized Specialty Diagnoses / Procedures Referred By Contmanjula t Referred To Contact Diagnoses Malignant neoplasm of upper lobe of left lung (CMS/HCC) Procedures General Blood Administration for Outpatient (One Time) Maninder Zhang MD [address] [facility] Shannan Dubois [address] [address] Phone: tel: fax: Maninder Zhang MD [address] [address] Phone: tel: fax: Referral ID Status Reason Start Date Expiration Date V isits Requested Visits Authorized [id number] Authorized 03/02/2025 09/01/2026 1 1 Encounter Details Date Type Department Care Team (Latest Contact Info) Description 03/02/2025 11:21 AM EDT - 03/02/2025 11:59 PM EDT Hospital Encounter [facility] [address] [place] [address] Malignant neoplasm of upper lobe of left [...] any time in the past 12 m [facility], were you homeless or living in a jail (including now)? No 03/09/2025 CAGE ASSESSMENT Answer [...] drink first t ashanti in the morning (EYE-RECORDING ARTIST) to steady your nerves or to get [...] nicotine polacrilex (Nicorette) 2 MG gum 07/01/2024 senna-docusate sodium (Senokot-S) 8.6-50 MG tablet Take [...] [facility] [address] [facility], [address] [place] [address] 03/23/2025 11:00 AM EDT Office Visit [facility] [address] [facility], [address] [place] [address] Maninder Zhang MD 800 [facility] [address] [place] [address] 03/23/2025 12:00 PM EDT Appointment [facility] [address] [place] [address] documented as of this encounter Visit Diagnoses [...] Date End Date Constantine Stiles APRN [address] [place], [place] [id number] PCP - General 01/21/23 Farhat Gómez MD [address] [facility] [address] [place] [address] Consulting Physician Radiation Oncology 10/27/24 documented as of this encounter
--- OUTSIDE RECORDS SUMMARY | 2025-03-08 16:56 | XMS_ITS | Encounter Summary ---
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 HEMATOLOGY METHOD 03/16/2025 3:36 AM EDT [facility] RDW 15.9(H) 11.5 - 14.5 % LAB HEMATOLOGY METHOD 03/16/2025 3:36 AM EDT [facility] MPV 11.0 8.8 - 12.5 fL LAB HEMATOLOGY METHOD 03/16/2025 3:36 AM EDT [facility] nRBC 0.0 <=0.0 per 100 WBCs LAB HEMATOLOGY METHOD 03/16/2025 3:36 AM EDT [facility] Differential Type Automated LAB HEMATOLOGY METHOD 03/16/2025 3:36 AM EDT [facility] Neutrophils % 86 % LAB HEMATOLOGY METHOD 03/16/2025 3:36 AM EDT [facility] Lymphocytes % 6 % LAB HEMATOLOGY METHOD 03/16/2025 3:36 AM EDT [facility] Monocytes % 6 % LAB HEMATOLOGY METHOD 03/16/2025 3:36 AM EDT [facility] Eosinophils % 0 % LAB HEMATOLOGY METHOD 03/16/2025 3:36 AM EDT [facility] Basophils % 0 % LAB HEMATOLOGY METHOD 03/16/2025 3:36 AM EDT [facility] Immature Granulocytes % 2 % LAB HEMATOLOGY METHOD 03/16/2025 3:36 AM EDT [facility] Neutrophils Absolute 9.03(H) 1.60 - 6.10 10*3/uL LAB HEMATOLOGY METHOD 03/16/2025 3:36 AM EDT [facility] Lymphocytes Absolute 0.60(L) 1.20 - 3.90 10*3/uL LAB HEMATOLOGY METHOD 03/16/2025 3:36 AM EDT [facility] Monocytes Absolute 0.64 0.30 - 0.90 10*3/uL LAB HEMATOLOGY METHOD 03/16/2025 3:36 AM EDT [facility] Eosinophils Absolute 0.02 0.00 - 0.50 10*3/uL LAB HEMATOLOGY METHOD 03/16/2025 3:36 AM EDT [facility] Basophils Absolute 0.02 0.00 - 0.10 10*3/uL LAB HEMATOLOGY METHOD 03/16/2025 3:36 AM EDT [facility] Immature Granulocytes Absolute 0.19(H) 0.00 - 0.06 10*3/uL LAB HEMATOLOGY METHOD 03/16/2025 3:36 AM EDT [facility] Blood Venous blood specimen / Unknown Venipuncture / Unknown 03/16/2025 2:23 AM EDT 03/16/2025 2:40 AM EDT Narrative [facility] - 03/16/2025 3:36 AM EDT Therapeutic decision making should be based on absolute values, rather than percentages. us Pooja Flowers MD LAB BLOOD ORDERABLES Final Res ult [facility] [address] [place] [address] * Magnesium, Plasma (03/15/2025 1:32 PM EDT) Magnesium, Plasma 2.0 1.9 - 2.4 mg/dL 03/15/2025 2:22 PM EDT [facility] Blood Venous blood specimen / Unknown Venipuncture / Unknown 03/15/2025 1:32 PM EDT 03/15/2025 1:58 PM EDT us Pooja Flowers MD LAB BLOOD ORDERABLES Final Res ult [facility] [address] [place] [address] * (ABNORMAL) CBC and differential (03/15/2025 1:32 PM EDT) WBC Count 10.41(H) 3.70 - 10.30 10*3/uL LAB HEMATOLOGY METHOD 03/15/2025 4:46 PM EDT [facility] RBC Count 2.45(L) 4.60 - 6.10 10*6/uL LAB HEMATOLOGY METHOD 03/15/2025 4:46 PM EDT [facility] HGB 7.4(L) 13.7 - 17.5 g/dL LAB HEMATOLOGY METHOD 03/15/2025 4:46 PM EDT [facility] HCT 23.4(L) 40.0 - 51.0 % LAB HEMATOLOGY METHOD 03/15/2025 4:46 PM EDT [facility] Platelet Count 61(L) 155 - 369 10*3/uL LAB HEMATOLOGY METHOD 03/15/2025 4:46 PM EDT [facility] MCV 96 79 - 98 fL LAB HEMATOLOGY METHOD 03/15/2025 4:46 PM EDT [facility] MCH 30.2 26.0 - 32.0 pg LAB HEMATOLOGY METHOD 03/15/2025 4:46 PM EDT [facility] MCHC 31.6 30.7 - 35.5 g/dL LAB HEMATOLOGY METHOD 03/15/2025 4:46 PM EDT [facility] RDW 15.8(H) 11.5 - 14.5 % LAB HEMATOLOGY METHOD 03/15/2025 4:46 PM EDT [facility] MPV 11.4 8.8 - 12.5 fL LAB HEMATOLOGY METHOD 03/15/2025 4:46 PM EDT [facility] nRBC 0.0 <=0.0 per 100 WBCs LAB HEMATOLOGY METHOD 03/15/2025 4:46 PM EDT [facility] Differential Type Automated LAB HEMATOLOGY METHOD 03/15/2025 4:46 PM EDT [facility] Neutrophils % 87 % LAB HEMATOLOGY METHOD 03/15/2025 4:46 PM EDT [facility] Lymphocytes % 4 % LAB HEMATOLOGY METHOD 03/15/2025 4:46 PM EDT [facility] Monocytes % 6 % LAB HEMATOLOGY METHOD 03/15/2025 4:46 PM EDT [facility] Eosinophils % 0 % LAB HEMATOLOGY METHOD 03/15/2025 4:46 PM EDT [facility] Basophils % 0 % LAB HEMATOLOGY METHOD 03/15/2025 4:46 PM EDT [facility] Immature Granulocytes % 3 % LAB HEMATOLOGY METHOD 03/15/2025 4:46 PM EDT [facility] Neutrophils Absolute 9.04(H) 1.60 - 6.10 10*3/uL LAB HEMATOLOGY METHOD 03/15/2025 4:46 PM EDT [facility] Lymphocytes Absolute 0.40(L) 1.20 - 3.90 10*3/uL LAB HEMATOLOGY METHOD 03/15/2025 4:46 PM EDT [facility] Monocytes Absolute 0.67 0.30 - 0.90 10*3/uL LAB HEMATOLOGY METHOD 03/15/2025 4:46 PM EDT [facility] Eosinophils Absolute 0.01 0.00 - 0.50 10*3/uL LAB HEMATOLOGY METHOD 03/15/2025 4:46 PM EDT [facility] Basophils Absolute 0.02 0.00 - 0.10 10*3/uL LAB HEMATOLOGY METHOD 03/15/2025 4:46 PM EDT [facility] Immature Granulocytes Absolute 0.27(H) 0.00 - 0.06 10*3/uL LAB HEMATOLOGY METHOD 03/15/2025 4:46 PM EDT [facility] Blood Venous blood specimen / Unknown Venipuncture / Unknown 03/15/2025 1:32 PM EDT 03/15/2025 2:02 PM EDT [facility] - 03/15/2025 4:46 PM EDT Therapeutic decision making should be based on absolute values, rather than percentages. us Pooja Flowers MD LAB BLOOD ORDERABLES Final Res ult [facility] [address] [place] [address] * XR Chest 1 View (03/14/2025 8:30 [...] ORDERAB LES Final Result BLOOD BANK [address] [place] [address], * Phosphorus (03/14/2025 3:04 AM EDT) Phosphorus, Plasma 3.2 2.5 - 4.5 mg/dL 03/14/2025 3:39 AM EDT [facility] Blood Venous blood specimen / Unknown Venipuncture / Unknown 03/14/2025 3:04 AM EDT 03/14/2025 3:08 AM EDT Kusum Barrera DO LAB BLOOD ORDERABLES Final Res ult [facility] [address] [place] [address] * (ABNORMAL) Magnesium (03/14/2025 3:04 AM EDT) Magnesium, Plasma 1.7(L) 1.9 - 2.4 mg/dL 03/14/2025 3:39 AM EDT [facility] Blood Venous blood specimen / Unknown Venipuncture / Unknown 03/14/2025 3:04 AM EDT 03/14/2025 3:08 AM EDT us Kusum Barrera DO LAB BLOOD ORDERABLES Final Res ult [facility] [address] [place] [address] * (ABNORMAL) Basic Metabolic Panel, Plasma (03/14/2025 3:04 AM EDT) Glucose, Plasma 150(H) 74 - 99 mg/dL 03/14/2025 3:39 AM EDT [facility] BUN, Plasma 10 8 - 23 mg/dL 03/14/2025 3:39 AM EDT [facility] Creatinine, Plasma 0.82 0.70 - 1.20 mg/dL 03/14/2025 3:39 AM EDT [facility] BUN/Creatinine Ratio 12 03/14/2025 3:39 AM EDT [facility] Sodium, Plasma 135(L) 136 - 145 mmol/L 03/14/2025 3:39 AM EDT [facility] Potassium, Plasma 4.1 3.6 - 4.9 mmol/L 03/14/2025 3:39 AM EDT [facility] Chloride, Plasma 97 97 - 107 mmol/L 03/14/2025 3:39 AM EDT [facility] CO2, Plasma 27 22 - 29 mmol/L 03/14/2025 3:39 AM EDT [facility] Anion Gap 11 6 - 16 mmol/L 03/14/2025 3:39 AM EDT [facility] Total Calcium, Plasma 8.7(L) 8.9 - 10.2 mg/dL 03/14/2025 3:39 AM EDT [facility] eGFRcr 99.9 mL/min/1.7 3m*2 03/14/2025 3:39 AM EDT [facility] Comment:Reported eGFRcr in m L/min/1.73m2 is based the CKD-EPI 2020 equation that does not use a race coefficient. Blood Venous blood specimen / Unknown Venipuncture / Unknown 03/14/2025 3:04 AM EDT 03/14/2025 3:08 AM EDT us Kusum Barrera DO LAB BLOOD ORDERABLES Final Res ult [facility] [address] [place] [address] * (ABNORMAL) CBC W/O Differential (03/14/2025 3:04 AM EDT) WBC Count 7.05 3.70 - 10.30 10*3/uL LAB HEMATOLOGY METHOD 03/14/2025 3:15 AM EDT [facility] RBC Count 2.47(L) 4.60 - 6.10 10*6/uL LAB HEMATOLOGY METHOD 03/14/2025 3:15 AM EDT [facility] HGB 7.4(L) 13.7 - 17.5 g/dL LAB HEMATOLOGY METHOD 03/14/2025 3:15 AM EDT [facility] HCT 23.4(L) 40.0 - 51.0 % LAB HEMATOLOGY METHOD 03/14/2025 3:15 AM EDT [facility] Platelet Count 54(L) 155 - 369 10*3/uL LAB HEMATOLOGY METHOD 03/14/2025 3:15 AM EDT [facility] MCV 95 79 - 98 fL LAB HEMATOLOGY METHOD 03/14/2025 3:15 AM EDT [facility] MCH 30.0 26.0 - 32.0 pg LAB HEMATOLOGY METHOD 03/14/2025 3:15 AM EDT [facility] MCHC 31.6 30.7 - 35.5 g/dL LAB HEMATOLOGY METHOD 03/14/2025 3:15 AM EDT [facility] RDW 15.8(H) 11.5 - 14.5 % LAB HEMATOLOGY METHOD 03/14/2025 3:15 AM EDT [facility] MPV 11.3 8.8 - 12.5 fL LAB HEMATOLOGY METHOD 03/14/2025 3:15 AM EDT [facility] nRBC 0.0 <=0.0 per 100 WBCs LAB HEMATOLOGY METHOD 03/14/2025 3:15 AM EDT [facility] Blood Venous blood specimen / Unknown Venipuncture / Unknown 03/14/2025 3:04 AM EDT 03/14/2025 3:08 AM EDT us Kusum Barrera DO LAB BLOOD ORDERABLES Final Res ult Performing Organization Address [facility]/ZIP Co de Phone Number [facility] [address] [place] [address] * Microbiology Frequency Override (03/13/2025 12:57 PM EDT) [facility] Microbiology Frequency Override Test Comment respiratory viral panel 03/14/2025 5:[address] [facility] Swab Nasopharyngeal structure / Unknown Non-blood Collection / Unknown 03/13/2025 12:57 PM EDT 03/13/2025 1:10 PM EDT Result [facility] us Kusum Barrera DO LAB MICROBIOLOGY - GENERAL ORD ERABLES Final Result Performing Organization Address [facility] [place] [address] * Influenza A,B & Respiratory Syncytial Virus by PCR (03/13/2025 12:45 PM EDT) [facility] Influenza A Virus PCR Result Not Detected Not Detected 03/14/2025 10:[address] [facility] Influenza B Virus PCR Result Not Detected Not Detected 03/14/2025 10:[address] [facility] Respiratory Syncytial Virus (RSV) PCR Result Not Detected Not Detected 03/14/2025 10:[address] [facility] Swab Nasopharyngeal structure / Unknown Non-blood Collection / Unknown 03/13/2025 12:45 PM EDT 03/13/2025 1:10 PM EDT us Kusum Barrera DO LAB MICROBIOLOGY - GENERAL ORD ERABLES Final Result Performing Organization Address [facility] Co de Phone Number [facility] [address] [place] [address] * SARS CoV-2/COVID-19 by PCR (03/13/2025 12:45 PM EDT) [facility] SARS CoV-2/COVID-1 9 RNA PCR Result Not Detected Not Detected 03/13/2025 2:[address] [facility] Swab Nasopharyngeal structure / Unknown Non-blood Collection / Unknown 03/13/2025 12:45 PM EDT 03/13/2025 1:[address] [facility] - 03/13/2025 2:00 PM EDT This test [...] - GENERAL ORD ERABLES Final Result [facility] [address] [place] [address] * Nasopharyngeal Respiratory Panel (03/13/2025 12:45 PM EDT) [facility] Nasopharyngeal Respiratory PCR Interpretation Not Detected for all analytes Not Detected for all analytes 03/13/2025 3:[address] [facility] Swab Nasopharyngeal structure / Unknown Non-blood Collection / Unknown 03/13/2025 12:45 PM EDT 03/13/2025 1:10 PM EDT Narrative [facility] - 03/13/2025 3:05 PM EDT [...] Respiratory PCR Panel is performed using the [employer] ePlex instrument. This test is FDA approved for use with Nasopharyngeal swabs only. This test is used for clinical purposes. It should not be regarded as investigational or for research. The [facility] Clinical Microbiology Laboratory is certified under the Clinical Laboratory Improvement Amendments of 1988 (CLIA-88) as qualified to perform high complexity clinical laboratory testing. Kusum Barrera DO LAB MICROBIOLOGY - GENERAL ORD ERABLES Final Result Performing Organization Address City/[facility]/ZIP Co de Phone Number [facility] [address] [place] [address] * Blood Culture (Aerobic/Anaerobet Set) (03/12/2025 11:44 PM EDT) Culture No growth at day 5 DAVID 03/18/2025 3:01 AM EDT [facility] Blood Structure of right hand / Unknown Venipuncture / Unknown 03/12/2025 11:44 PM EDT 03/13/2025 1:58 AM EDT Spring Stewart MD LAB MICROBIOLOGY - GENERAL ORDER HUMERA Final Result Performing Organization Address City/[facility]/ZIP Co de Phone Number [facility] [address] [place] [address] * (ABNORMAL) Comprehensive Metabolic Panel, Plasma (03/12/2025 11:44 PM EDT) Glucose, Plasma 150(H) 74 - 99 mg/dL 03/13/2025 12:17 AM EDT [facility] BUN, Plasma 10 8 - 23 mg/dL 03/13/2025 12:17 AM EDT [facility] Creatinine, Plasma 0.99 0.70 - 1.20 mg/dL 03/13/2025 12:17 AM EDT [facility] BUN/Creatinine Ratio 10 03/13/2025 12:17 AM EDT [facility] Sodium, Plasma 133(L) 136 - 145 mmol/L 03/13/2025 12:17 AM EDT [facility] Potassium, Plasma 4.0 3.6 - 4.9 mmol/L 03/13/2025 12:17 AM EDT [facility] Chloride, Plasma 99 97 - 107 mmol/L 03/13/2025 12:17 AM EDT [facility] CO2, Plasma 24 22 - 29 mmol/L 03/13/2025 12:17 AM EDT [facility] Anion Gap 10 6 - 16 mmol/L 03/13/2025 12:17 AM EDT [facility] Total Calcium, Plasma 8.4(L) 8.9 - 10.2 mg/dL 03/13/2025 12:17 AM EDT [facility] Total Protein 5.6(L) 6.3 - 7.9 g/dL 03/13/2025 12:17 AM EDT [facility] Albumin, Plasma 2.5(L) 3.5 - 5.2 g/dL 03/13/2025 12:17 AM EDT [facility] AST, Plasma 24 10 - 50 U/L 03/13/2025 12:17 AM EDT [facility] ALT, Plasma 75(H) 10 - 50 U/L 03/13/2025 12:17 AM EDT [facility] Alkaline Phosphatase, Plasma 216(H) 40 - 115 U/L 03/13/2025 12:17 AM EDT [facility] Total Bilirubin, Plasma 0.3 0.2 - 1.1 mg/dL 03/13/2025 12:17 AM EDT [facility] eGFRcr 86.7 mL/min/1.7 3m*2 03/13/2025 12:17 AM EDT [facility] Comment:Reported eGFRcr in m L/min/1.73m2 is based the CKD-EPI 2020 equation that does not use a race coefficient. Blood Venous blood specimen / Unknown Venipuncture / Unknown 03/12/2025 11:44 PM EDT 03/12/2025 11:50 PM EDT us Kusum Barrera DO LAB BLOOD ORDERABLES Final Res ult [facility] [address] [place] [address] * (ABNORMAL) CBC W/O Differential (03/12/2025 11:44 PM EDT) WBC Count 5.44 3.70 - 10.30 10*3/uL LAB HEMATOLOGY METHOD 03/12/2025 11:57 PM EDT [facility] RBC Count 2.39(L) 4.60 - 6.10 10*6/uL LAB HEMATOLOGY METHOD 03/12/2025 11:57 PM EDT [facility] HGB 7.2(L) 13.7 - 17.5 g/dL LAB HEMATOLOGY METHOD 03/12/2025 11:57 PM EDT [facility] HCT 22.8(L) 40.0 - 51.0 % LAB HEMATOLOGY METHOD 03/12/2025 11:57 PM EDT [facility] Platelet Count 58(L) 155 - 369 10*3/uL LAB HEMATOLOGY METHOD 03/12/2025 11:57 PM EDT [facility] MCV 95 79 - 98 fL LAB HEMATOLOGY METHOD 03/12/2025 11:57 PM EDT [facility] MCH 30.1 26.0 - 32.0 pg LAB HEMATOLOGY METHOD 03/12/2025 11:57 PM EDT [facility] MCHC 31.6 30.7 - 35.5 g/dL LAB HEMATOLOGY METHOD 03/12/2025 11:57 PM EDT [facility] RDW 15.6(H) 11.5 - 14.5 % LAB HEMATOLOGY METHOD 03/12/2025 11:57 PM EDT [facility] MPV 11.0 8.8 - 12.5 fL LAB HEMATOLOGY METHOD 03/12/2025 11:57 PM EDT [facility] nRBC 0.0 <=0.0 per 100 WBCs LAB HEMATOLOGY METHOD 03/12/2025 11:57 PM EDT [facility] Blood Venous blood specimen / Unknown Venipuncture / Unknown 03/12/2025 11:44 PM EDT 03/12/2025 11:50 PM EDT us Kusum C Barrera DO LAB BLOOD ORDERABLES Final Res ult Performing Organization Address City/[facility]/ZIP Co de Phone Number [facility] [address] [place] [address] * Cortisol (03/12/2025 5:14 PM EDT) Cortisol 16.50 Before 10am: 3.7 - 19.4. After 5pm: 2.9 - 17.3 ug/dL 03/12/2025 6:35 PM EDT [facility] Comment:Testing performed on [employer], standardized against LONG TERM Reference Standard concentration values assigned by LC-MS/MS and verified by BCR 192 and BCR 193 certified reference materials. Blood Venous blood specimen / Unknown Venipuncture / Unknown 03/12/2025 5:14 PM EDT 03/12/2025 5:18 PM EDT Kusum Barrera DO LAB REF LAB BLOOD AND FLUID OR D Final Result Performing Organization Address [facility] Co de Phone Number [facility] [address] [place] [address] * US Abdomen Doppler Limited (03/12/2025 3:51 [...] on 03/12/2025 3:55 PM Kusum Barrera DO [facility] US PROCEDURES Final Result * (ABNORMAL) Comprehensive Metabolic Panel, Plasma (03/12/2025 3:32 AM EDT) Glucose, Plasma 131(H) 74 - 99 mg/dL 03/12/2025 4:25 AM EDT [facility] BUN, Plasma 10 8 - 23 mg/dL 03/12/2025 4:25 AM EDT [facility] Creatinine, Plasma 0.69(L) 0.70 - 1.20 mg/dL 03/12/2025 4:25 AM EDT [facility] BUN/Creatinine Ratio 14 03/12/2025 4:25 AM EDT [facility] Sodium, Plasma 135(L) 136 - 145 mmol/L 03/12/2025 4:25 AM EDT [facility] Potassium, Plasma 4.3 3.6 - 4.9 mmol/L 03/12/2025 4:25 AM EDT [facility] Chloride, Plasma 102 97 - 107 mmol/L 03/12/2025 4:25 AM EDT [facility] CO2, Plasma 24 22 - 29 mmol/L 03/12/2025 4:25 AM EDT [facility] Anion Gap 9 6 - 16 mmol/L 03/12/2025 4:25 AM EDT [facility] Total Calcium, Plasma 8.7(L) 8.9 - 10.2 mg/dL 03/12/2025 4:25 AM EDT [facility] Total Protein 5.7(L) 6.3 - 7.9 g/dL 03/12/2025 4:25 AM EDT [facility] Albumin, Plasma 2.7(L) 3.5 - 5.2 g/dL 03/12/2025 4:25 AM EDT [facility] AST, Plasma 58(H) 10 - 50 U/L 03/12/2025 4:25 AM EDT [facility] ALT, Plasma 112(H) 10 - 50 U/L 03/12/2025 4:25 AM EDT [facility] Alkaline Phosphatase, Plasma 237(H) 40 - 115 U/L 03/12/2025 4:25 AM EDT [facility] Total Bilirubin, Plasma 0.3 0.2 - 1.1 mg/dL 03/12/2025 4:25 AM EDT [facility] eGFRcr 105.3 mL/min/1.7 3m*2 03/12/2025 4:25 AM EDT [facility] Comment:Reported eGFRcr in m L/min/1.73m2 is based the CKD-EPI 2020 equation that does not use a race coefficient. Blood Venous blood specimen / Unknown Venipuncture / Unknown 03/12/2025 3:32 AM EDT 03/12/2025 3:41 AM EDT us Kusum Barrera DO LAB BLOOD ORDERABLES Final Res ult [facility] [address] [place] [address] * (ABNORMAL) CBC and Differential (03/12/2025 3:32 AM EDT) WBC Count 2.86(L) 3.70 - 10.30 10*3/uL LAB HEMATOLOGY METHOD 03/12/2025 5:23 AM EDT [facility] RBC Count 2.77(L) 4.60 - 6.10 10*6/uL LAB HEMATOLOGY METHOD 03/12/2025 5:23 AM EDT [facility] HGB 8.4(L) 13.7 - 17.5 g/dL LAB HEMATOLOGY METHOD 03/12/2025 5:23 AM EDT [facility] HCT 26.7(L) 40.0 - 51.0 % LAB HEMATOLOGY METHOD 03/12/2025 5:23 AM EDT [facility] Platelet Count 56(L) 155 - 369 10*3/uL LAB HEMATOLOGY METHOD 03/12/2025 5:23 AM EDT [facility] MCV 96 79 - 98 fL LAB HEMATOLOGY METHOD 03/12/2025 5:23 AM EDT [facility] MCH 30.3 26.0 - 32.0 pg LAB HEMATOLOGY METHOD 03/12/2025 5:23 AM EDT [facility] MCHC 31.5 30.7 - 35.5 g/dL LAB HEMATOLOGY METHOD 03/12/2025 5:23 AM EDT [facility] RDW 15.9(H) 11.5 - 14.5 % LAB HEMATOLOGY METHOD 03/12/2025 5:23 AM EDT [facility] MPV 11.2 8.8 - 12.5 fL LAB HEMATOLOGY METHOD 03/12/2025 5:23 AM EDT [facility] nRBC 0.0 <=0.0 per 100 WBCs LAB HEMATOLOGY METHOD 03/12/2025 5:23 AM EDT [facility] Differential Type Automated LAB HEMATOLOGY METHOD 03/12/2025 5:23 AM EDT [facility] Neutrophils % 71 % LAB HEMATOLOGY METHOD 03/12/2025 5:23 AM EDT [facility] Lymphocytes % 15 % LAB HEMATOLOGY METHOD 03/12/2025 5:23 AM EDT [facility] Monocytes % 12 % LAB HEMATOLOGY METHOD 03/12/2025 5:23 AM EDT [facility] Eosinophils % 0 % LAB HEMATOLOGY METHOD 03/12/2025 5:23 AM EDT [facility] Basophils % 0 % LAB HEMATOLOGY METHOD 03/12/2025 5:23 AM EDT [facility] Immature Granulocytes % 2 % LAB HEMATOLOGY METHOD 03/12/2025 5:23 AM EDT [facility] Neutrophils Absolute 1.99 1.60 - 6.10 10*3/uL LAB HEMATOLOGY METHOD 03/12/2025 5:23 AM EDT [facility] Lymphocytes Absolute 0.44(L) 1.20 - 3.90 10*3/uL LAB HEMATOLOGY METHOD 03/12/2025 5:23 AM EDT [facility] Monocytes Absolute 0.34 0.30 - 0.90 10*3/uL LAB HEMATOLOGY METHOD 03/12/2025 5:23 AM EDT [facility] Eosinophils Absolute 0.01 0.00 - 0.50 10*3/uL LAB HEMATOLOGY METHOD 03/12/2025 5:23 AM EDT [facility] Basophils Absolute 0.01 0.00 - 0.10 10*3/uL LAB HEMATOLOGY METHOD 03/12/2025 5:23 AM EDT [facility] Immature Granulocytes Absolute 0.07(H) 0.00 - 0.06 10*3/uL LAB HEMATOLOGY METHOD 03/12/2025 5:23 AM EDT [facility] Blood Venous blood specimen / Unknown Venipuncture / Unknown 03/12/2025 3:32 AM EDT 03/12/2025 3:44 AM EDT Narrative [facility] - 03/12/2025 5:23 AM EDT Therapeutic decision making should be based on absolute values, rather than percentages. us Kusum Barrera DO LAB BLOOD ORDERABLES Final Res ult [facility] [address] [place] [address] * Lactate, venous (03/11/2025 5:06 PM EDT) Lactate, Venous, Whole Blood 1.3 0.5 - 2.2 mmol/L LAB HEMATOLOGY METHOD 03/11/2025 5:20 PM EDT [facility] Blood Venous blood specimen / Unknown Venipuncture / Unknown 03/11/2025 5:06 PM EDT 03/11/2025 5:17 PM EDT Kusum Barrera DO LAB BLOOD ORDERABLES Final Res ult Performing Organization Address [facility]/ZIP Co de Phone Number [facility] [address] [place] [address] * Light Green Top (03/11/2025 3:32 AM EDT) Extra Hold for add-ons 03/11/2025 6:34 AM EDT [facility] LAB Comment:Auto resulted. Blood Venous blood specimen / Unknown 03/11/2025 3:32 AM EDT 03/11/2025 4:24 AM EDT Kusum Barrera DO LAB BLOOD ORDERABLES Final Res ult Performing Organization Address City/[facility] Co de Phone Number [facility] [address] [place] [address] * (ABNORMAL) CBC and Differential (03/11/2025 3:32 AM EDT) WBC Count 1.17(LL) 3.70 - 10.30 10*3/uL LAB HEMATOLOGY METHOD 03/11/2025 6:17 AM EDT [facility] RBC Count 2.63(L) 4.60 - 6.10 10*6/uL LAB HEMATOLOGY METHOD 03/11/2025 6:17 AM EDT [facility] HGB 8.0(L) 13.7 - 17.5 g/dL LAB HEMATOLOGY METHOD 03/11/2025 6:17 AM EDT [facility] HCT 24.6(L) 40.0 - 51.0 % LAB HEMATOLOGY METHOD 03/11/2025 6:17 AM EDT [facility] Platelet Count 52(L) 155 - 369 10*3/uL LAB HEMATOLOGY METHOD 03/11/2025 6:17 AM EDT [facility] MCV 94 79 - 98 fL LAB HEMATOLOGY METHOD 03/11/2025 6:17 AM EDT [facility] MCH 30.4 26.0 - 32.0 pg LAB HEMATOLOGY METHOD 03/11/2025 6:17 AM EDT [facility] MCHC 32.5 30.7 - 35.5 g/dL LAB HEMATOLOGY METHOD 03/11/2025 6:17 AM EDT [facility] RDW 15.9(H) 11.5 - 14.5 % LAB HEMATOLOGY METHOD 03/11/2025 6:17 AM EDT [facility] MPV 11.4 8.8 - 12.5 fL LAB HEMATOLOGY METHOD 03/11/2025 6:17 AM EDT [facility] nRBC 0.0 <=0.0 per 100 WBCs LAB HEMATOLOGY METHOD 03/11/2025 6:17 AM EDT [facility] Differential Type Automated LAB HEMATOLOGY METHOD 03/11/2025 6:17 AM EDT [facility] Neutrophils % 38 % LAB HEMATOLOGY METHOD 03/11/2025 6:17 AM EDT [facility] Lymphocytes % 33 % LAB HEMATOLOGY METHOD 03/11/2025 6:17 AM EDT [facility] Monocytes % 27 % LAB HEMATOLOGY METHOD 03/11/2025 6:17 AM EDT [facility] Eosinophils % 1 % LAB HEMATOLOGY METHOD 03/11/2025 6:17 AM EDT [facility] Basophils % 0 % LAB HEMATOLOGY METHOD 03/11/2025 6:17 AM EDT [facility] Immature Granulocytes % 1 % LAB HEMATOLOGY METHOD 03/11/2025 6:17 AM EDT [facility] Neutrophils Absolute 0.46(LL) 1.60 - 6.10 10*3/uL LAB HEMATOLOGY METHOD 03/11/2025 6:17 AM EDT [facility] Lymphocytes Absolute 0.38(L) 1.20 - 3.90 10*3/uL LAB HEMATOLOGY METHOD 03/11/2025 6:17 AM EDT [facility] Monocytes Absolute 0.31 0.30 - 0.90 10*3/uL LAB HEMATOLOGY METHOD 03/11/2025 6:17 AM EDT [facility] Eosinophils Absolute 0.01 0.00 - 0.50 10*3/uL LAB HEMATOLOGY METHOD 03/11/2025 6:17 AM EDT [facility] Basophils Absolute 0.00 0.00 - 0.10 10*3/uL LAB HEMATOLOGY METHOD 03/11/2025 6:17 AM EDT [facility] Immature Granulocytes Absolute 0.01 0.00 - 0.06 10*3/uL LAB HEMATOLOGY METHOD 03/11/2025 6:17 AM EDT [facility] Blood Venous blood specimen / Unknown Venipuncture / Unknown 03/11/2025 3:32 AM EDT 03/11/2025 4:30 AM EDT Narrative [facility] - 03/11/2025 6:17 AM EDT Therapeutic decision making should be based on absolute values, rather than percentages. us Kusum Barrera DO LAB BLOOD ORDERABLES Final Res ult [facility] [address] [place] [address] * [place] Modified Barium Swallow (03/10/2025 10:50 [...] LAB HEMATOLOGY METHOD 03/10/2025 5:52 AM EDT [facility] RBC Morphology Slide Reviewed LAB HEMATOLOGY METHOD 03/10/2025 5:52 AM EDT [facility] Platelet Estimate Platelet smear estimate consistent with automated count LAB HEMATOLOGY METHOD 03/10/2025 5:52 AM EDT [facility] Blood Venous blood specimen / Unknown Venipuncture / Unknown 03/10/2025 3:39 AM EDT 03/10/2025 3:44 AM EDT us Kusum Anh Barrera DO LAB BLOOD ORDERABLES Final Res ult [facility] [address] [place] [address] * (ABNORMAL) Manual Differential (03/10/2025 3:39 AM EDT) Blasts % 0 % LAB HEMATOLOGY METHOD 03/10/2025 5:52 AM EDT [facility] Promyelocytes % 0 % LAB HEMATOLOGY METHOD 03/10/2025 5:52 AM EDT [facility] Myelocytes % 0 % LAB HEMATOLOGY METHOD 03/10/2025 5:52 AM EDT [facility] Metamyelocytes % 4 % LAB HEMATOLOGY METHOD 03/10/2025 5:52 AM EDT [facility] Neutrophils % 60 % LAB HEMATOLOGY METHOD 03/10/2025 5:52 AM EDT [facility] Lymphocytes % 34 % LAB HEMATOLOGY METHOD 03/10/2025 5:52 AM EDT [facility] Reactive Lymphocytes % 0 % LAB HEMATOLOGY METHOD 03/10/2025 5:52 AM EDT [facility] Monocytes % 0 % LAB HEMATOLOGY METHOD 03/10/2025 5:52 AM EDT [facility] Eosinophils % 2 % LAB HEMATOLOGY METHOD 03/10/2025 5:52 AM EDT [facility] Basophils % 0 % LAB HEMATOLOGY METHOD 03/10/2025 5:52 AM EDT [facility] Blasts Absolute 0.00 10*3/UL LAB HEMATOLOGY METHOD 03/10/2025 5:52 AM EDT [facility] Promyelocytes Absolute 0.00 10*3/uL LAB HEMATOLOGY METHOD 03/10/2025 5:52 AM EDT [facility] Myelocytes Absolute 0.00 10*3/uL LAB HEMATOLOGY METHOD 03/10/2025 5:52 AM EDT [facility] Metamyelocytes Absolute 0.03 10*3/uL LAB HEMATOLOGY METHOD 03/10/2025 5:52 AM EDT [facility] Neutrophils Absolute 0.50(LL) 1.60 - 6.10 10*3/uL LAB HEMATOLOGY METHOD 03/10/2025 5:52 AM EDT [facility] Lymphocytes Absolute 0.29(L) 1.20 - 3.90 10*3/uL LAB HEMATOLOGY METHOD 03/10/2025 5:52 AM EDT [facility] Reactive Lymphocytes Absolute 0.00 10*3/uL LAB HEMATOLOGY METHOD 03/10/2025 5:52 AM EDT [facility] Monocytes Absolute 0.00(L) 0.30 - 0.90 10*3/uL LAB HEMATOLOGY METHOD 03/10/2025 5:52 AM EDT [facility] Eosinophils Absolute 0.02 0.00 - 0.50 10*3/uL LAB HEMATOLOGY METHOD 03/10/2025 5:52 AM EDT [facility] Basophils Absolute 0.00 0.00 - 0.10 10*3/uL LAB HEMATOLOGY METHOD 03/10/2025 5:52 AM EDT [facility] Blood Venous blood specimen / Unknown Venipuncture / Unknown 03/10/2025 3:39 AM EDT 03/10/2025 3:44 AM EDT Kusum Barrera DO LAB BLOOD ORDERABLES Final Res ult [facility] [address] [place] [address] * Light Green Top (03/10/2025 3:39 AM EDT) Extra Hold for add-ons 03/10/2025 6:01 AM EDT [facility] Comment:Auto resulted. Blood Venous blood specimen / Unknown 03/10/2025 3:39 AM EDT 03/10/2025 3:44 AM EDT Kusum Barrera DO LAB BLOOD ORDERABLES Final Res ult [facility] [address] [place] [address] * Lactate, venous (03/10/2025 3:39 AM EDT) Lactate, Venous, Whole Blood 0.7 0.5 - 2.2 mmol/L LAB HEMATOLOGY METHOD 03/10/2025 3:49 AM EDT [facility] Blood Venous blood specimen / Unknown Venipuncture / Unknown 03/10/2025 3:39 AM EDT 03/10/2025 3:47 AM EDT us Kusum Barrera DO LAB BLOOD ORDERABLES Final Res ult [facility] [address] [place] [address] * (ABNORMAL) CBC and Differential (03/10/2025 3:39 AM EDT) WBC Count 0.84(LL) 3.70 - 10.30 10*3/uL LAB HEMATOLOGY METHOD 03/10/2025 5:52 AM EDT [facility] RBC Count 2.51(L) 4.60 - 6.10 10*6/uL LAB HEMATOLOGY METHOD 03/10/2025 5:52 AM EDT [facility] HGB 7.5(L) 13.7 - 17.5 g/dL LAB HEMATOLOGY METHOD 03/10/2025 5:52 AM EDT [facility] HCT 23.4(L) 40.0 - 51.0 % LAB HEMATOLOGY METHOD 03/10/2025 5:52 AM EDT [facility] Platelet Count 69(L) 155 - 369 10*3/uL LAB HEMATOLOGY METHOD 03/10/2025 5:52 AM EDT [facility] MCV 93 79 - 98 fL LAB HEMATOLOGY METHOD 03/10/2025 5:52 AM EDT [facility] MCH 29.9 26.0 - 32.0 pg LAB HEMATOLOGY METHOD 03/10/2025 5:52 AM EDT [facility] MCHC 32.1 30.7 - 35.5 g/dL LAB HEMATOLOGY METHOD 03/10/2025 5:52 AM EDT [facility] RDW 16.1(H) 11.5 - 14.5 % LAB HEMATOLOGY METHOD 03/10/2025 5:52 AM EDT [facility] MPV 11.3 8.8 - 12.5 fL LAB HEMATOLOGY METHOD 03/10/2025 5:52 AM EDT [facility] nRBC 0.0 <=0.0 per 100 WBCs LAB HEMATOLOGY METHOD 03/10/2025 5:52 AM EDT [facility] Differential Type Manual LAB HEMATOLOGY METHOD 03/10/2025 5:52 AM EDT [facility] Blood Venous blood specimen / Unknown Venipuncture / Unknown 03/10/2025 3:39 AM EDT 03/10/2025 3:44 AM EDT Narrative [facility] - 03/10/2025 5:52 AM EDT [...] ORDERABLES Final Res ult Performing Organization Address City/State/[facility] Co de Phone Number [facility] [address] [place] [address] * Transfuse RBC (03/09/2025 11:15 AM EDT) Margarito Hansen DO BLOOD TRANSFUSION ORDERA BLES Final Result * Transfuse RBC: 1 Units (03/09/2025 11:15 AM EDT) [facility] DO BLOOD TRANSFUSION ORDERA BLES [...] Culture (Aerobic/Anaerobet Set) (03/09/2025 8:55 AM EDT) [facility] Culture No growth at day 5 DAVID 03/14/2025 10:01 AM EDT [facility] Blood Venous blood specimen / Unknown Venipuncture / Unknown 03/09/2025 8:55 AM EDT 03/09/2025 9:27 AM EDT Margarito Hansen DO LAB MICROBIOLOGY - GENER AL ORDERABLES Final Result Performing Organization Address City/[facility]/[place] [address] * (ABNORMAL) Lactate, venous (03/09/2025 8:54 AM EDT) [facility] Lactate, Venous, Whole Blood 2.6(H) 0.5 - 2.2 mmol/L LAB HEMATOLOGY METHOD 03/09/2025 9:11 AM EDT [facility] Blood Venous blood specimen / Unknown Venipuncture / Unknown 03/09/2025 8:54 AM EDT 03/09/2025 9:09 AM EDT Margarito Hansen DO LAB BLOOD ORDERABLES Fin al Result Performing Organization Address City/[facility]/[place] [address] * Prepare Leukocyte Reduced RBC: 1 Units (03/09/2025 6:51 AM EDT) Product Code [id number] BLOO D BANK Dispense Status Transfused BLOOD BANK Blood Expiration Date [id number] BLOOD BANK Unit Number [id number] CH B LOOD BANK Product Blood Type 6200 BLOOD BANK Blood Type A+ BLOOD BANK Crossmatch Compatible CH BLOOD BANK Other Margarito Hansen DO BLOOD BANK PRODUCT ORDER HUMERA Final Result Performing Organization Address [facility] de Phone Number BLOOD BANK [address] [place] [address], * Morphology (03/09/2025 5:29 AM EDT) Echinocytes Present LAB HEMATOLOGY METHOD 03/09/2025 10:02 AM EDT [facility] Elliptocytes/Ov alocytes Present LAB HEMATOLOGY METHOD 03/09/2025 10:02 AM EDT [facility] RBC Morphology Slide Reviewed LAB HEMATOLOGY METHOD 03/09/2025 10:02 AM EDT [facility] Platelet Estimate Platelet count not valid due to clumping. Appears decreased. LAB HEMATOLOGY METHOD 03/09/2025 10:02 AM EDT [facility] Blood Venous blood specimen / Unknown Venipuncture / Unknown 03/09/2025 5:29 AM EDT 03/09/2025 5:36 AM EDT Margarito Hansen DO LAB BLOOD ORDERABLES Fin al Result Performing Organization Address City/[facility]/ZIP Co de Phone Number [facility] [address] [place] [address] * (ABNORMAL) Manual Differential (03/09/2025 5:29 AM EDT) Blasts % 0 % LAB HEMATOLOGY METHOD 03/09/2025 10:02 AM EDT [facility] Promyelocytes % 0 % LAB HEMATOLOGY METHOD 03/09/2025 10:02 AM EDT [facility] Myelocytes % 0 % LAB HEMATOLOGY METHOD 03/09/2025 10:02 AM EDT [facility] Metamyelocytes % 0 % LAB HEMATOLOGY METHOD 03/09/2025 10:02 AM EDT [facility] Neutrophils % 64 % LAB HEMATOLOGY METHOD 03/09/2025 10:02 AM EDT [facility] Lymphocytes % 23 % LAB HEMATOLOGY METHOD 03/09/2025 10:02 AM EDT [facility] Reactive Lymphocytes % 0 % LAB HEMATOLOGY METHOD 03/09/2025 10:02 AM EDT [facility] Monocytes % 13 % LAB HEMATOLOGY METHOD 03/09/2025 10:02 AM EDT [facility] Eosinophils % 0 % LAB HEMATOLOGY METHOD 03/09/2025 10:02 AM EDT [facility] Basophils % 0 % LAB HEMATOLOGY METHOD 03/09/2025 10:02 AM EDT [facility] Blasts Absolute 0.00 10*3/UL LAB HEMATOLOGY METHOD 03/09/2025 10:02 AM EDT [facility] Promyelocytes Absolute 0.00 10*3/uL LAB HEMATOLOGY METHOD 03/09/2025 10:02 AM EDT [facility] Myelocytes Absolute 0.00 10*3/uL LAB HEMATOLOGY METHOD 03/09/2025 10:02 AM EDT [facility] Metamyelocytes Absolute 0.00 10*3/uL LAB HEMATOLOGY METHOD 03/09/2025 10:02 AM EDT [facility] Neutrophils Absolute 0.60(LL) 1.60 - 6.10 10*3/uL LAB HEMATOLOGY METHOD 03/09/2025 10:02 AM EDT [facility] Lymphocytes Absolute 0.22(L) 1.20 - 3.90 10*3/uL LAB HEMATOLOGY METHOD 03/09/2025 10:02 AM EDT [facility] Reactive Lymphocytes Absolute 0.00 10*3/uL LAB HEMATOLOGY METHOD 03/09/2025 10:02 AM EDT [facility] Monocytes Absolute 0.12(L) 0.30 - 0.90 10*3/uL LAB HEMATOLOGY METHOD 03/09/2025 10:02 AM EDT [facility] Eosinophils Absolute 0.00 0.00 - 0.50 10*3/uL LAB HEMATOLOGY METHOD 03/09/2025 10:02 AM EDT [facility] Basophils Absolute 0.00 0.00 - 0.10 10*3/uL LAB HEMATOLOGY METHOD 03/09/2025 10:02 AM EDT [facility] Blood Venous blood specimen / Unknown Venipuncture / Unknown 03/09/2025 5:29 AM EDT 03/09/2025 5:36 AM EDT Margarito Hansen DO LAB BLOOD ORDERABLES Fin al Result [facility] [address] [place] [address] * (ABNORMAL) CBC and differential (03/09/2025 5:29 AM EDT) WBC Count 0.94(LL) 3.70 - 10.30 10*3/uL LAB HEMATOLOGY METHOD 03/09/2025 10:02 AM EDT [facility] RBC Count 2.05(L) 4.60 - 6.10 10*6/uL LAB HEMATOLOGY METHOD 03/09/2025 10:02 AM EDT [facility] HGB 6.3(LL) 13.7 - 17.5 g/dL LAB HEMATOLOGY METHOD 03/09/2025 10:02 AM EDT [facility] HCT 19.6(L) 40.0 - 51.0 % LAB HEMATOLOGY METHOD 03/09/2025 10:02 AM EDT [facility] Platelet Count LAB HEMATOLOGY METHOD 03/09/2025 10:02 AM EDT [facility] Comment:Platelet count not v alid due to clumping. Appears decreased. MCV 96 79 - 98 fL LAB HEMATOLOGY METHOD 03/09/2025 10:02 AM EDT [facility] MCH 30.7 26.0 - 32.0 pg LAB HEMATOLOGY METHOD 03/09/2025 10:02 AM EDT [facility] MCHC 32.1 30.7 - 35.5 g/dL LAB HEMATOLOGY METHOD 03/09/2025 10:02 AM EDT [facility] RDW 15.9(H) 11.5 - 14.5 % LAB HEMATOLOGY METHOD 03/09/2025 10:02 AM EDT [facility] MPV LAB HEMATOLOGY METHOD 03/09/2025 10:02 AM EDT [facility] Comment:Not Measured nRBC 0.0 <=0.0 per 100 WBCs LAB HEMATOLOGY METHOD 03/09/2025 10:02 AM EDT [facility] Differential Type Manual LAB HEMATOLOGY METHOD 03/09/2025 10:[address] [facility] Blood Venous blood specimen / Unknown Venipuncture / Unknown 03/09/2025 5:29 AM EDT 03/09/2025 5:36 AM EDT Narrative [facility] - 03/09/2025 10:02 AM EDT [...] DO LAB BLOOD ORDERABLES Fin al Result [facility] [address] [place] [address] * Methicillin Resistant Staphylococcus aureus (MRSA) by PCR (03/09/2025 5:11 AM EDT) Pathologist [facility] Methicillin Resistant Staphylococcus aureus (MRSA) by PCR Not Detected Not Detected 03/09/2025 7:56 AM EDT [facility] Swab Both anterior nares / Unknown Non-blood Collection / Unknown 03/09/2025 5:11 AM EDT 03/09/2025 6:26 AM EDT Narrative [facility] - 03/09/2025 7:56 AM EDT [...] AL ORDERABLES Final Result Performing Organization Address [facility] Co de Phone Number [facility] [address] [place] [address] * Nasopharyngeal Respiratory Panel (03/09/2025 5:11 AM EDT) Nasopharyngeal Respiratory PCR Interpretation Not Detected for all analytes Not Detected for all analytes 03/09/2025 8:[address] [facility] Swab Nasopharyngeal structure / Unknown Non-blood Collection / Unknown 03/09/2025 5:11 AM EDT 03/09/2025 6:26 AM EDT Narrative [facility] - 03/09/2025 8:29 AM EDT [...] Respiratory PCR Panel is performed using the ripp[employer] inclex instrument. This test is FDA approved for use with Nasopharyngeal swabs only. This test is used for clinical purposes. It should not be regarded as investigational or for research. The [facility] Clinical Microbiology Laboratory is certified under the Clinical Laboratory Improvement Amendments of 1988 (CLIA-88) as qualified to perform high complexity clinical laboratory testing. [facility] LAB MICROBIOLOGY - GENER AL ORDERABLES Final Result Performing Organization Address [facility] de Phone Number [facility] [address] [place] [address] * CT Angio Pulmonary Embolism (03/08/2025 11:28 [...] at day 5 03/13/2025 10:17 PM EDT [facility] Blood Venous blood specimen / Unknown Venipuncture / Unknown 03/08/2025 9:44 PM EDT 03/08/2025 10:09 PM EDT Narrative [facility] - 03/13/2025 10:17 PM EDT Low blood volume submitted, results may be compromised Margarito Hansen DO LAB MICROBIOLOGY - GENER AL ORDERABLES Final Result [facility] [address] [place] [address] * Urinalysis Microscopic Examination (03/08/2025 9:35 PM EDT) Urine Urine specimen obtained by clean catch procedure / Unknown Non-blood Collection / Unknown 03/08/2025 9:35 PM EDT 03/08/2025 9:53 PM EDT [facility] URINE ORDERABLES Fin al Result Performing Organization Address City/[facility]/ZIP Co de Phone Number [facility] [address] [place] [address] * Urine Uribe Panel (03/08/2025 9:35 PM EDT) Extra Reflex urine culture not indicated 03/08/2025 11:02 PM EDT [facility] Urine Urine specimen obtained by clean catch procedure / Unknown Non-blood Collection / Unknown 03/08/2025 9:35 PM EDT 03/08/2025 9:53 PM EDT [facility] URINE ORDERABLES Fin al Result Performing Organization Address City/[facility]/ZIP Co de Phone Number [facility] [address] [place] [address] * (ABNORMAL) Urinalysis with reflex microscopic (Culture NOT Included) (03/08/2025 9:35 PM EDT) Color, Urine Yellow LAB URINALYSIS - AUTOMATED METHOD 03/08/2025 10:07 PM EDT [facility] Clarity, Urine Clear LAB URINALYSIS - AUTOMATED METHOD 03/08/2025 10:07 PM EDT [facility] Spec [place], Urine >1.030(H) 1.005 - 1.030 LAB URINALYSIS - AUTOMATED METHOD 03/08/2025 10:07 PM EDT [facility] pH, Urine 6.5 5.0 - 8.0 LAB URINALYSIS - AUTOMATED METHOD 03/08/2025 10:07 PM EDT [facility] Protein, Urine 30(A) Negative mg/dL LAB URINALYSIS - AUTOMATED METHOD 03/08/2025 10:07 PM EDT [facility] Glucose, Urine 250(A) Negative mg/dL LAB URINALYSIS - AUTOMATED METHOD 03/08/2025 10:07 PM EDT [facility] Ketones, Urine Negative Negative mg/dL LAB URINALYSIS - AUTOMATED METHOD 03/08/2025 10:07 PM EDT [facility] Blood, Urine Trace(A) Negative LAB URINALYSIS - AUTOMATED METHOD 03/08/2025 10:07 PM EDT [facility] Bilirubin, Urine Negative Negative LAB URINALYSIS - AUTOMATED METHOD 03/08/2025 10:07 PM EDT [facility] Urobilinogen, Urine 1.0 0.2 to 1.0 mg/dL LAB URINALYSIS - AUTOMATED METHOD 03/08/2025 10:07 PM EDT [facility] Leukocytes, Urine Negative Negative LAB URINALYSIS - AUTOMATED METHOD 03/08/2025 10:07 PM EDT [facility] Nitrite, Urine Negative Negative LAB URINALYSIS - AUTOMATED METHOD 03/08/2025 10:07 PM EDT [facility] RBC, Urine 4 - 10(A) 0 to 3 /HPF LAB URINALYSIS - AUTOMATED METHOD 03/08/2025 10:07 PM EDT [facility] WBC, Urine 0 - 5 0 to 5 /HPF LAB URINALYSIS - AUTOMATED METHOD 03/08/2025 10:07 PM EDT [facility] Squamous Epithelial Cells 0 - 2 0 to 5 /HPF LAB URINALYSIS - AUTOMATED METHOD 03/08/2025 10:07 PM EDT [facility] Hyaline Casts 0 - 2 0 to 5 /LPF LAB URINALYSIS - AUTOMATED METHOD 03/08/2025 10:07 PM EDT [facility] Bacteria, Urine Negative Negative LAB URINALYSIS - AUTOMATED METHOD 03/08/2025 10:07 PM EDT [facility] Urine Urine specimen obtained by clean catch procedure / Unknown Non-blood Collection / Unknown 03/08/2025 9:35 PM EDT 03/08/2025 9:53 PM EDT us Margarito Hansen DO LAB URINE ORDERABLES Fin al Result [facility] [address] [place] [address] * (ABNORMAL) Streptococcus pneumoniae and Legionella Urinary Antigen (03/08/2025 9:35 PM EDT) Legionella pneumophila serogroup 1 Antigen Result (Urine) Negative Negative 03/09/2025 7:28 AM EDT [facility] Streptococcus pneumoniae Antigen Result (Urine) Positive(A) Negative 03/09/2025 7:28 AM EDT [facility] Urine Urine specimen obtained by clean catch procedure / Unknown Non-blood Collection / Unknown 03/08/2025 9:35 PM EDT 03/08/2025 9:55 PM EDT Margarito Hansen DO LAB MICROBIOLOGY - GENER AL ORDERABLES Final Result Performing Organization Address City/[facility]/ZIP Co de Phone Number [facility] [address] [place] [address] * (ABNORMAL) LACTIC ACID, VENOUS (03/08/2025 9:19 PM EDT) Lactate, Venous, Whole Blood 3.2(H) 0.5 - 2.2 mmol/L LAB HEMATOLOGY METHOD 03/08/2025 9:44 PM EDT [facility] Blood Venous blood specimen / Unknown Venipuncture / Unknown 03/08/2025 9:19 PM EDT 03/08/2025 9:43 PM EDT Kayleigh Carter MD LAB BLOOD ORDERABLES Final Resu lt Performing Organization Address City/[facility]/ZIP Co de Phone Number [facility] [address] [place] [address] * (ABNORMAL) Comprehensive metabolic panel (03/08/2025 9:19 PM EDT) Glucose, Plasma 251(H) 74 - 99 mg/dL 03/08/2025 10:03 PM EDT [facility] BUN, Plasma 15 8 - 23 mg/dL 03/08/2025 10:03 PM EDT [facility] Creatinine, Plasma 0.64(L) 0.70 - 1.20 mg/dL 03/08/2025 10:03 PM EDT [facility] BUN/Creatinine Ratio 23 03/08/2025 10:03 PM EDT [facility] Sodium, Plasma 135(L) 136 - 145 mmol/L 03/08/2025 10:03 PM EDT [facility] Potassium, Plasma 4.1 3.6 - 4.9 mmol/L 03/08/2025 10:03 PM EDT [facility] Chloride, Plasma 100 97 - 107 mmol/L 03/08/2025 10:03 PM EDT [facility] CO2, Plasma 19(L) 22 - 29 mmol/L 03/08/2025 10:03 PM EDT [facility] Anion Gap 16 6 - 16 mmol/L 03/08/2025 10:03 PM EDT [facility] Total Calcium, Plasma 9.0 8.9 - 10.2 mg/dL 03/08/2025 10:03 PM EDT [facility] Total Protein 6.8 6.3 - 7.9 g/dL 03/08/2025 10:03 PM EDT [facility] Albumin, Plasma 3.2(L) 3.5 - 5.2 g/dL 03/08/2025 10:03 PM EDT [facility] AST, Plasma 32 10 - 50 U/L 03/08/2025 10:03 PM EDT [facility] ALT, Plasma 52(H) 10 - 50 U/L 03/08/2025 10:03 PM EDT [facility] Alkaline Phosphatase, Plasma 202(H) 40 - 115 U/L 03/08/2025 10:03 PM EDT [facility] Total Bilirubin, Plasma 0.7 0.2 - 1.1 mg/dL 03/08/2025 10:03 PM EDT [facility] eGFRcr 107.7 mL/min/1.7 3m*2 03/08/2025 10:03 PM EDT [facility] Comment:Reported eGFRcr in m L/min/1.73m2 is based the CKD-EPI 2020 equation that does not use a race coefficient. Blood Venous blood specimen / Unknown Venipuncture / Unknown 03/08/2025 9:19 PM EDT 03/08/2025 9:42 PM EDT us Margarito Hansen DO LAB BLOOD ORDERABLES Fin al Result [facility] [address] [place] [address] * (ABNORMAL) CBC (03/08/2025 9:19 PM EDT) WBC Count 1.24(L) 3.70 - 10.30 10*3/uL LAB HEMATOLOGY METHOD 03/08/2025 9:44 PM EDT [facility] RBC Count 2.70(L) 4.60 - 6.10 10*6/uL LAB HEMATOLOGY METHOD 03/08/2025 9:44 PM EDT [facility] HGB 8.2(L) 13.7 - 17.5 g/dL LAB HEMATOLOGY METHOD 03/08/2025 9:44 PM EDT [facility] HCT 26.2(L) 40.0 - 51.0 % LAB HEMATOLOGY METHOD 03/08/2025 9:44 PM EDT [facility] Platelet Count 101(L) 155 - 369 10*3/uL LAB HEMATOLOGY METHOD 03/08/2025 9:44 PM EDT [facility] MCV 97 79 - 98 fL LAB HEMATOLOGY METHOD 03/08/2025 9:44 PM EDT [facility] MCH 30.4 26.0 - 32.0 pg LAB HEMATOLOGY METHOD 03/08/2025 9:44 PM EDT [facility] MCHC 31.3 30.7 - 35.5 g/dL LAB HEMATOLOGY METHOD 03/08/2025 9:44 PM EDT [facility] RDW 15.9(H) 11.5 - 14.5 % LAB HEMATOLOGY METHOD 03/08/2025 9:44 PM EDT [facility] MPV 10.9 8.8 - 12.5 fL LAB HEMATOLOGY METHOD 03/08/2025 9:44 PM EDT [facility] nRBC 0.0 <=0.0 per 100 WBCs LAB HEMATOLOGY METHOD 03/08/2025 9:44 PM EDT [facility] Blood Venous blood specimen / Unknown Venipuncture / Unknown 03/08/2025 9:19 PM EDT 03/08/2025 9:42 PM EDT Margarito Hansen LAB BLOOD ORDERABLES Fin al Result Performing Organization Address [facility] Co de Phone Number [facility] [address] [place] [address] * Transfuse RBC (03/08/2025 9:16 PM EDT) Kayleigh Carter MD BLOOD TRANSFUSION ORDERABLES Fi nal Result * Transfuse RBC: 1 Units (03/08/2025 9:16 PM EDT) Kayleigh Carter MD BLOOD TRANSFUSION ORDERABLES Fi nal Result * Prepare Leukocyte Reduced RBC: 2 Units (03/08/2025 7:23 PM EDT) [facility] Product Code [id number] [facility] BLOO D BANK Dispense Status Transfused BLOOD BANK Blood Expiration Date [id number] BLOOD BANK Unit Number [id number] CH B LOOD BANK Product Blood Type 6200 BLOOD BANK Blood Type A+ CH BLOOD BANK Crossmatch Compatible BLOOD BANK Product Code [id number] [facility] BLOO D BANK Dispense Status Released BLOOD BANK Blood Expiration Date [id number] BLOOD BANK Unit Number [id number] CH B LOOD BANK Product Blood Type 6200 BLOOD BANK Blood Type A+ CH BLOOD BANK Crossmatch Compatible BLOOD BANK Other Kayleigh Carter MD BLOOD BANK PRODUCT ORDERABLES F inal Result Performing Organization Address [facility] Co de Phone Number BLOOD BANK [address] [place] [address], * XR Chest 1 View (03/08/2025 5:47 [...] ECG Atrial Rate 104 BPM MUSE ECG CO Interval 144 ms MUSE ECG QRSD Interval 102 ms MUSE ECG QT Interval 354 ms MUSE ECG QTC Interval 465 ms MUSE ECG R [place] 82 degrees MUSE ECG T Wave [place] 66 degrees MUSE ECG Diagnosis Sinus tachycardia MUSE ECG Diagnosis Otherwise normal ECG MUSE ECG Diagnosis MUSE ECG Diagnosis Confirmed by Myles Manley ([id number]) on 03/08/2025 6:58:57 PM MUSE ECG 03/08/2025 5:31 PM EDT 03/08/2025 6:58 PM EDT Kayleigh Carter MD ECG ORDERABLES Final Result Performing Organization Address City/[facility]/ZIP Co de Phone Number MUSE ECG * (ABNORMAL) Morphology (03/08/2025 5:26 PM EDT) RBC Fragments/Schi stocytes Slight(A) (none) LAB HEMATOLOGY METHOD 03/08/2025 7:55 PM EDT [facility] Echinocytes Present LAB HEMATOLOGY METHOD 03/08/2025 7:55 PM EDT [facility] RBC Morphology Slide Reviewed LAB HEMATOLOGY METHOD 03/08/2025 7:55 PM EDT [facility] Platelet Estimate Platelet smear estimate consistent with automated count LAB HEMATOLOGY METHOD 03/08/2025 7:55 PM EDT [facility] Toxic Changes Present LAB HEMATOLOGY METHOD 03/08/2025 7:55 PM EDT [facility] Blood Venous blood specimen / Unknown Venipuncture / Unknown 03/08/2025 5:26 PM EDT 03/08/2025 5:31 PM EDT Kayleigh Carter MD LAB BLOOD ORDERABLES Final Resu lt [facility] [address] [place] [address] * (ABNORMAL) Manual Differential (03/08/2025 5:26 PM EDT) Blasts % 0 % LAB HEMATOLOGY METHOD 03/08/2025 7:55 PM EDT [facility] Promyelocytes % 0 % LAB HEMATOLOGY METHOD 03/08/2025 7:55 PM EDT [facility] Myelocytes % 0 % LAB HEMATOLOGY METHOD 03/08/2025 7:55 PM EDT [facility] Metamyelocytes % 2 % LAB HEMATOLOGY METHOD 03/08/2025 7:55 PM EDT [facility] Neutrophils % 90 % LAB HEMATOLOGY METHOD 03/08/2025 7:55 PM EDT [facility] Lymphocytes % 1 % LAB HEMATOLOGY METHOD 03/08/2025 7:55 PM EDT [facility] Reactive Lymphocytes % 1 % LAB HEMATOLOGY METHOD 03/08/2025 7:55 PM EDT [facility] Monocytes % 4 % LAB HEMATOLOGY METHOD 03/08/2025 7:55 PM EDT [facility] Eosinophils % 0 % LAB HEMATOLOGY METHOD 03/08/2025 7:55 PM EDT [facility] Basophils % 2 % LAB HEMATOLOGY METHOD 03/08/2025 7:55 PM EDT [facility] Blasts Absolute 0.00 10*3/UL LAB HEMATOLOGY METHOD 03/08/2025 7:55 PM EDT [facility] Promyelocytes Absolute 0.00 10*3/uL LAB HEMATOLOGY METHOD 03/08/2025 7:55 PM EDT [facility] Myelocytes Absolute 0.00 10*3/uL LAB HEMATOLOGY METHOD 03/08/2025 7:55 PM EDT [facility] Metamyelocytes Absolute 0.02 10*3/uL LAB HEMATOLOGY METHOD 03/08/2025 7:55 PM EDT [facility] Neutrophils Absolute 1.00(L) 1.60 - 6.10 10*3/uL LAB HEMATOLOGY METHOD 03/08/2025 7:55 PM EDT [facility] Lymphocytes Absolute 0.01(L) 1.20 - 3.90 10*3/uL LAB HEMATOLOGY METHOD 03/08/2025 7:55 PM EDT [facility] Reactive Lymphocytes Absolute 0.01 10*3/uL LAB HEMATOLOGY METHOD 03/08/2025 7:55 PM EDT [facility] Monocytes Absolute 0.04(L) 0.30 - 0.90 10*3/uL LAB HEMATOLOGY METHOD 03/08/2025 7:55 PM EDT [facility] Eosinophils Absolute 0.00 0.00 - 0.50 10*3/uL LAB HEMATOLOGY METHOD 03/08/2025 7:55 PM EDT [facility] Basophils Absolute 0.02 0.00 - 0.10 10*3/uL LAB HEMATOLOGY METHOD 03/08/2025 7:[address] [facility] Blood Venous blood specimen / Unknown Venipuncture / Unknown 03/08/2025 5:26 PM EDT 03/08/2025 5:31 PM EDT Kayleigh Carter MD LAB BLOOD ORDERABLES Final Resu lt Performing Organization Address [facility]/ZIP Co de Phone Number [facility] [address] [place] [address] * ED HIV 1/2 Antibody/Antigen Screen w/Reflex to HIV 1/2 Differentiation (03/08/2025 5:26 PM EDT) HIV 1 & 2 Antibody/Antigen Screen Non Reactive Non Reactive 03/08/2025 6:15 PM EDT [facility] Comment:Screening for HIV 1 & 2 antibodies, and P24 antigen is NONREACTIVE. No confirmatory testing is required. Blood Venous blood specimen / Unknown Venipuncture / Unknown 03/08/2025 5:26 PM EDT 03/08/2025 5:35 PM EDT us Kayleigh Carter MD LAB BLOOD ORDERABLES Final Resu lt Performing Organization Address [facility]/[place] [address] * Hepatitis C Antibody - ED (03/08/2025 5:26 PM EDT) Hepatitis C Antibody Negative Negative 03/08/2025 6:[address] [facility] Blood Venous blood specimen / Unknown Venipuncture / Unknown 03/08/2025 5:26 PM EDT 03/08/2025 5:34 PM EDT us Kayleigh Carter MD LAB BLOOD ORDERABLES Final Resu lt Performing Organization Address [facility]/ZIP Co de Phone Number [facility] [address] [place] [address] * Type and screen (03/08/2025 5:26 PM [...] TEST ORDERABLES Final Result Performing Organization Address [facility]/ZIP Co de Phone Number BLOOD BANK [address] * PT-INR (03/08/2025 5:26 PM EDT) Prothrombin Time 14.3 12.0 - 14.3 sec 03/08/2025 5:47 PM EDT [facility] INR 1.1 0.9 - 1.1 03/08/2025 5:[address] [facility] Blood Venous blood specimen / Unknown Venipuncture / Unknown 03/08/2025 5:26 PM EDT 03/08/2025 5:30 PM EDT Narrative [facility] - 03/08/2025 5:47 PM EDT OPTIMAL INR RANGES FOR PATIENT ON ORAL ANTICOAGULANT THERAPY Prevention of venous thromboembolism INR 2.0 to 3.0 In patients with heart disease: Atrial fibrillation INR 2.0 to 3.0 Valvular heart disease INR 2.0 to 3.0 Tissue heart valves INR 2.0 to 3.0 Mechanical prosthetic valves INR 2.5 to 3.5 Prevention of recurrent KS INR 2.5 to 3.5 Kayleigh Carter MD LAB BLOOD ORDERABLES Final Resu lt [facility] [address] [place] [address] * (ABNORMAL) CMP (03/08/2025 5:26 PM EDT) Glucose, Plasma 282(H) 74 - 99 mg/dL 03/08/2025 6:03 PM EDT [facility] BUN, Plasma 15 8 - 23 mg/dL 03/08/2025 6:03 PM EDT [facility] Creatinine, Plasma 0.59(L) 0.70 - 1.20 mg/dL 03/08/2025 6:03 PM EDT [facility] BUN/Creatinine Ratio 25 03/08/2025 6:03 PM EDT [facility] Sodium, Plasma 134(L) 136 - 145 mmol/L 03/08/2025 6:03 PM EDT [facility] Potassium, Plasma 3.6 3.6 - 4.9 mmol/L 03/08/2025 6:03 PM EDT [facility] Chloride, Plasma 99 97 - 107 mmol/L 03/08/2025 6:03 PM EDT [facility] CO2, Plasma 19(L) 22 - 29 mmol/L 03/08/2025 6:03 PM EDT [facility] Anion Gap 16 6 - 16 mmol/L 03/08/2025 6:03 PM EDT [facility] Total Calcium, Plasma 9.0 8.9 - 10.2 mg/dL 03/08/2025 6:03 PM EDT [facility] Total Protein 6.7 6.3 - 7.9 g/dL 03/08/2025 6:03 PM EDT [facility] Albumin, Plasma 3.1(L) 3.5 - 5.2 g/dL 03/08/2025 6:03 PM EDT [facility] AST, Plasma 23 10 - 50 U/L 03/08/2025 6:03 PM EDT [facility] Comment:Hemolyzed, result ma y be falsely increased. ALT, Plasma 39 10 - 50 U/L 03/08/2025 6:03 PM EDT [facility] Alkaline Phosphatase, Plasma 189(H) 40 - 115 U/L 03/08/2025 6:03 PM EDT [facility] Total Bilirubin, Plasma 0.5 0.2 - 1.1 mg/dL 03/08/2025 6:03 PM EDT [facility] eGFRcr 110.4 mL/min/1.7 3m*2 03/08/2025 6:03 PM EDT [facility] Comment:Reported eGFRcr in m L/min/1.73m2 is based the CKD-EPI 2020 equation that does not use a race coefficient. Blood Venous blood specimen / Unknown Venipuncture / Unknown 03/08/2025 5:26 PM EDT 03/08/2025 5:34 PM EDT us Kayleigh Carter MD LAB BLOOD ORDERABLES Final Resu lt [facility] [address] [place] [address] * (ABNORMAL) CBC w/diff (03/08/2025 5:26 PM EDT) WBC Count 1.11(LL) 3.70 - 10.30 10*3/uL LAB HEMATOLOGY METHOD 03/08/2025 7:55 PM EDT [facility] RBC Count 2.12(L) 4.60 - 6.10 10*6/uL LAB HEMATOLOGY METHOD 03/08/2025 7:55 PM EDT [facility] HGB 6.4(LL) 13.7 - 17.5 g/dL LAB HEMATOLOGY METHOD 03/08/2025 7:55 PM EDT [facility] HCT 20.4(L) 40.0 - 51.0 % LAB HEMATOLOGY METHOD 03/08/2025 7:55 PM EDT [facility] Platelet Count 96(L) 155 - 369 10*3/uL LAB HEMATOLOGY METHOD 03/08/2025 7:55 PM EDT [facility] MCV 96 79 - 98 fL LAB HEMATOLOGY METHOD 03/08/2025 7:55 PM EDT [facility] Comment:Results inconsistent with previous lab findings. MCH 30.2 26.0 - 32.0 pg LAB HEMATOLOGY METHOD 03/08/2025 7:55 PM EDT [facility] MCHC 31.4 30.7 - 35.5 g/dL LAB HEMATOLOGY METHOD 03/08/2025 7:55 PM EDT [facility] RDW 16.6(H) 11.5 - 14.5 % LAB HEMATOLOGY METHOD 03/08/2025 7:55 PM EDT [facility] MPV 11.8 8.8 - 12.5 fL LAB HEMATOLOGY METHOD 03/08/2025 7:55 PM EDT [facility] nRBC 0.0 <=0.0 per 100 WBCs LAB HEMATOLOGY METHOD 03/08/2025 7:55 PM EDT [facility] Differential Type Manual LAB HEMATOLOGY METHOD 03/08/2025 7:55 PM EDT [facility] Blood Venous blood specimen / Unknown Venipuncture / Unknown 03/08/2025 5:26 PM EDT 03/08/2025 5:31 PM EDT Narrative [facility] - 03/08/2025 7:55 PM EDT [...] MD LAB BLOOD ORDERABLES Final Resu lt [facility] [address] [place] [address] documented in this encounter Visit Diagnoses Diagnosis [...] Sena Eduardo RN)[id number] (Given - Provider: Malaika Eedn RN) 0606 (Given - Provider: Malaika Eden RN)1124 (Given - Provider: Luz Cervantes [...] DONNA) 1844 (Given - Provider: Luz Cervantes, DNONA) 1800 (Canceled Entry - Provider: Automatic Discharge [...] documented as of this encounter Care Teams Lens Blank Gauger Relationship Specialty Start Date End Date Constantine Stiles APRN [address] [place] [address] [place] [address] PCP - General 01/21/23 Farhat Gómez MD [address] [phone] Consulting Physician Radiation Oncology 10/27/24 documented as of this encounter
--- NOTE | 2025-03-18 22:50 | ECG_ITS ---
APPROVED REPORT Exam: Resting ECG HR:96 bpm ECG Measurements Heart Rate 96 AXES IA 148 P 79 QRSd 109 QRS 86 QT 348 T 71 QTc 402 Conclusion SINUS RHYTHM NORMAL ECG UNCONFIRMED REPORT Electronically signed by : DIDIER NICOLAS, 03/21/2025 04:58:49
[2025-03-18 23:00] VITALS: BP 108/64; PULSE 96; RESP 15; O2SAT 96
--- NOTE | 2025-03-18 23:03 | HMH.EDGENADL ---
Discharge Plan Disposition Patient Disposition: Home, Self-Care Prescriptions Prescriptions: No Action buprenorphine-naloxone 8-2 mg tablet, sublingual 2 tab SL DAILY Vraylar 1.5 mg capsule 1.5 mg PO DAILY Qty: 90 2RF ipratropium-albuterol 0.5 mg-3 mg(2.5 mg base)/3 mL solution for nebulization 3 ml inhalation QID PRN (Reason: shortness of breath or wheezing) 90 Days Qty: 270 3RF Breztri Aerosphere 160-9-4.8 mcg/actuation HFA aerosol inhaler 2 inh inhalation BID 90 Days Qty: 10.7 3RF nicotine (polacrilex) 2 mg gum 2 mg buccal Q2H PRN (Reason: nicotine cravings) Qty: 396 0RF Rx Instructions: Weeks 1 to 6: Chew 1 piece every 2 hours As NEEDED Weeks 7 to 9: Chew 1 piece every 4 hors As NEEDED Weeks 1o to 12: Chew 1 piece every 8 hours As NEEDED olanzapine 5 mg tablet 5 mg PO gabapentin 800 mg tablet 800 mg PO TID Qty: 90 3RF polyethylene glycol 3350 [Miralax] 17 gram/dose powder 17 g PO DAILY PRN (Reason: constipation) 4 Days Qty: 68 0RF docusate sodium [Colace] 100 mg capsule 100 mg PO DAILY Qty: 30 0RF tamsulosin [Flomax] 0.4 mg capsule 0.4 mg PO DAILY Qty: 14 0RF celecoxib [Celebrex] 100 mg capsule 100 mg PO DAILY Qty: 60 2RF cyclobenzaprine 10 mg tablet 10 mg PO BID Patient Comments: TAKE ONE TABLET BY MOUTH 2 TIMES A DAY NEEDED FOR MUSCLE SPASMS omeprazole 40 mg capsule,delayed release(DR/EC) 40 mg PO DAILY Qty: 90 3RF prednisone 20 mg tablet 20 mg PO BID 5 Days Qty: 10 0RF albuterol sulfate 90 mcg/actuation HFA aerosol inhaler 2 inh inhalation QID PRN (Reason: shortness of breath or wheezing) 90 Days Qty: 8.5 2RF sennosides [Senna Lax] 8.6 mg tablet 8.6 mg PO DAILY PRN (Reason: constipation) Qty: 30 0RF polyethylene glycol 3350 [Miralax] 17 gram/dose powder 17 g PO DAILY PRN (Reason: constipation) Qty: 510 0RF Referrals Follow up/Referrals: Constantine Stiles APRN [Primary Care Provider, Family Practice] - See instructions Activity Restrictions/Add. Instructions Additional Instructions/Restrictions: Recommend increasing his home MiraLAX and laxative medications to increase stool output. Consider mag citrate [id number] if you need an additional agent. Please follow-up with your primary care provider. Please return to the emergency department if you develop any new or worsening symptoms or become concerned for your health. Clinical Impressions Clinical Impression: Right sided abdominal pain, Metastatic primary lung cancer, Cancer, metastatic to bone, Constipation Instructions Patient Instructions: DI for Acute Abdominal Pain Print Language Print Language: Romanian Discharge ED Provider: Stuart Upton General Adult HPI General Chief complaint: Abdominal Pain Stated complaint: Chest pain Time Seen by Provider: 03/18/25 23:02 History of Present Illness HPI narrative: 59-year-old male with history of widely metastatic lung cancer presents with worsening right-sided pain. He reports pain in the right low back/right lower abdomen. He denies any history of surgery. He was most recently seen here and transferred to for multifocal pneumonia for which he has been on antibiotics. He has been doing well at home for the last couple of days but has been having worsening right sided pain. Denies any fever at home. Reports normal stool and urine output. Related Data Home Medications ?Medication ?Instructions ?Recorded ?Confirmed buprenorphine 8 mg-naloxone 2 mg 2 tab sublingual DAILY . 04/08/22 02/11/25 sublingual tablet olanzapine 5 mg tablet 5 mg PO 01/12/25 02/11/25 cyclobenzaprine 10 mg tablet 10 mg PO BID 01/24/25 02/11/25 Previous Rx's ?Medication ?Instructions ?Recorded ipratropium 0.5 mg-albuterol 3 mg 3 ml inhalation QID PRN shortness 01/30/24 (2.5 mg base)/3 mL nebulization of breath or wheezing 90 days #270 soln mL cariprazine 1.5 mg capsule 1.5 mg PO DAILY #90 caps 04/20/24 (Vraylar) budesonide 160 mcg-glycopyr 9 2 inh inhalation BID 90 days #10.7 07/01/24 mcg-formot 4.8 mcg/actuation HFA grams inhaler (Breztri Aerosphere) nicotine (polacrilex) 2 mg gum 2 mg buccal Q2H PRN nicotine 07/01/24 cravings #396 ea omeprazole 40 mg capsule,delayed 40 mg PO DAILY #90 caps 08/04/24 release docusate sodium 100 mg capsule 100 mg PO DAILY #30 caps 01/06/25 (Colace) polyethylene glycol 3350 17 17 g PO DAILY PRN constipation 4 01/06/25 gram/dose oral powder (Miralax) days #68 grams tamsulosin 0.4 mg capsule (Flomax) 0.4 mg PO DAILY #14 caps 01/06/25 gabapentin 800 mg tablet 800 mg PO TID #90 tabs 01/12/25 albuterol sulfate 90 mcg/actuation 2 inh inhalation QID PRN shortness 01/25/25 aerosol inhaler of breath or wheezing 90 days #8.5 grams prednisone 20 mg tablet 20 mg PO BID 5 days #10 tabs 01/25/25 celecoxib 100 mg capsule (Celebrex) 100 mg PO DAILY #60 caps 02/11/25 polyethylene glycol 3350 17 17 g PO DAILY PRN constipation 02/15/25 gram/dose oral powder (Miralax) #510 grams sennosides 8.6 mg tablet (Senna 8.6 mg PO DAILY PRN constipation 02/15/25 Lax) #30 tabs Allergies Allergy/AdvReac Type Severity Reaction Status Date / Time No Known Allergies Allergy Verified 02/11/25 10:22 [facility] Disclaimer: The information contained in this section may have been updated after the patient was seen, as this information can be updated by other users. Medical History Lung cancer Multiple lung nodules on CT Solid nodule of lung greater than 8 mm in diameter Dyspnea on exertion Encounter for screening for malignant neoplasm of lung Smoking greater than 30 pack years COPD mixed type DDD (degenerative disc disease), lumbar Surgical History History of lung biopsy History of back surgery No history of previous surgery Family History Other No significant family history Social History Smoking Status: Unknown if ever smoked smoking status stop date: November 2023 alcohol intake: never substance use type: former substance user current occupational status: employed Travel in the last 8 weeks?: None Have you lived/traveled outside [place] in past 30 days?: No Contact w/someone who lives/traveled outside US past 30 days?: No Exposure to someone with infectious disease in past 14 days?: No Do you have a fever (greater than 100.4 F or 38 C)?: No Have you tested positive for COVID-19?: No Exposed to someone with COVID-19 in past 14 days?: No Do you have a sore throat?: No Do you have a cough?: No Do you have any weakness?: No Do you have any diarrhea?: No Are you experiencing any unusual bleeding?: No Do you have any muscle aches/pain?: No Do you have any abdominal pain?: No Are you experiencing loss of taste or smell?: No Other Medical History Have you received the Flu Vaccine for this season: No Have you received the Pneumonia Vaccine: No ROS Obtained: Yes All systems reviewed & no additional complaints except as documented Physical Exam General General appearance: alert, in no apparent distress and cachectic Head Head exam: atraumatic and normocephalic Eye Eye exam: Present normal appearance, PERRL and EOMI ENT ENT exam: Present normal oropharynx and normal external ear exam Neck Neck exam: Present normal inspection and full ROM Chest Chest inspection: Present normal inspection and symmetric chest wall rise; Absent tenderness Respiratory Respiratory exam: Present normal lung sounds bilaterally; Absent respiratory distress Cardiovascular Cardiovascular exam: Present regular rate and normal rhythm Abdominal Exam Abdominal exam: Present soft; Absent distention, tenderness or guarding Extremities Exam Extremities exam: Present normal inspection; Absent edema or joint swelling Back Exam Back exam: Present normal inspection; Absent tenderness Neurological Exam Neurological exam: Present alert and oriented X3; Absent motor sensory deficit Psychiatric Psychiatric exam: Present normal affect and normal mood Skin Skin exam: Present warm, dry and normal color Lymphatic Lymphatic Findings: no adenopathy Medical Decision Making Medical Records Medical records reviewed: Yes I reviewed the patient's medical records. Screening: Per USPSTF and CDC recommendations, given the prevalence of disease in our region, it is our hospital?s policy to screen for HIV and viral Hepatitis for all patients aged 18 and over and those with ongoing risk factors. Handy Inquiry Pt receiving controlled substance: No Handy was queried for this patient: No Vital Signs: 07/04/25 23:00 03/18/25 23:08 03/18/25 23:15 Temperature 98.2 F Temperature Source Oral Pulse Rate 96 H 94 H Pulse Rate [Left Radial] 97 H Respiratory Rate 15 18 18 Blood Pressure 108/64 L 109/66 L Blood Pressure [Right Arm] 103/70 L Blood Pressure Mean [Right Arm] 81 Blood Pressure Source Blood Pressure Source [Right Arm] Automatic Cuff Blood Pressure Position Blood Pressure Position [Right Arm] Sitting 02 Sat by Pulse Oximetry 96 94 L 97 Oxygen Delivery Method Nasal Cannula Oxygen Flow Rate (LPM) 3 03/18/25 23:35 03/18/25 23:45 03/19/25 00:00 Temperature Temperature Source Pulse Rate 93 H 100 H 99 H Pulse Rate [Left Radial] Respiratory Rate 17 17 15 Blood Pressure 97/64 L 109/65 L 105/64 L Blood Pressure [Right Arm] Blood Pressure Mean [Right Arm] Blood Pressure Source Blood Pressure Source [Right Arm] Blood Pressure Position Blood Pressure Position [Right Arm] 02 Sat by Pulse Oximetry 96 95 97 Oxygen Delivery Method Oxygen Flow Rate (LPM) 03/19/25 00:16 03/19/25 00:30 03/19/25 00:45 Temperature Temperature Source Pulse Rate 94 H 95 H 90 Pulse Rate [Left Radial] Respiratory Rate 13 11 L 14 Blood Pressure 109/60 L 98/70 L 94/62 L Blood Pressure [Right Arm] Blood Pressure Mean [Right Arm] Blood Pressure Source Blood Pressure Source [Right Arm] Blood Pressure Position Blood Pressure Position [Right Arm] 02 Sat by Pulse Oximetry 90 L 96 97 Oxygen Delivery Method Oxygen Flow Rate (LPM) 03/19/25 01:00 03/19/25 01:15 03/19/25 01:30 Temperature Temperature Source Pulse Rate 95 H 98 H 92 H Pulse Rate [Left Radial] Respiratory Rate 18 17 15 Blood Pressure 112/63 109/72 L 107/71 L Blood Pressure [Right Arm] Blood Pressure Mean [Right Arm] Blood Pressure Source Blood Pressure Source [Right Arm] Blood Pressure Position Blood Pressure Position [Right Arm] 02 Sat by Pulse Oximetry 94 L 95 97 Oxygen Delivery Method Oxygen Flow Rate (LPM) 03/19/25 01:45 03/19/25 02:00 03/19/25 02:15 Temperature Temperature Source Pulse Rate 91 H 91 H 88 Pulse Rate [Left Radial] Respiratory Rate 20 16 15 Blood Pressure 124/84 118/76 107/70 L Blood Pressure [Right Arm] Blood Pressure Mean [Right Arm] Blood Pressure Source Blood Pressure Source [Right Arm] Blood Pressure Position Blood Pressure Position [Right Arm] 02 Sat by Pulse Oximetry 95 96 97 Oxygen Delivery Method Oxygen Flow Rate (LPM) 03/19/25 02:30 03/19/25 02:45 03/19/25 03:00 Temperature Temperature Source Pulse Rate 90 94 H 89 Pulse Rate [Left Radial] Respiratory Rate 16 16 15 Blood Pressure 110/77 121/74 108/70 L Blood Pressure [Right Arm] Blood Pressure Mean [Right Arm] Blood Pressure Source Blood Pressure Source [Right Arm] Blood Pressure Position Blood Pressure Position [Right Arm] 02 Sat by Pulse Oximetry 96 95 97 Oxygen Delivery Method Oxygen Flow Rate (LPM) 03/19/25 03:15 03/19/25 03:47 Temperature 98.2 F Temperature Source Oral Pulse Rate 85 85 Pulse Rate [Left Radial] Respiratory Rate 14 13 Blood Pressure 104/66 L 100/66 L Blood Pressure [Right Arm] Blood Pressure Mean [Right Arm] Blood Pressure Source Automatic Cuff Blood Pressure Source [Right Arm] Blood Pressure Position Sitting Blood Pressure Position [Right Arm] 02 Sat by Pulse Oximetry 94 L Oxygen Delivery Method Nasal Cannula Oxygen Flow Rate (LPM) 3 Lab Data Lab results reviewed: Yes I reviewed the patient's lab results. Lab Results 03/18/25 23:28: WBC 18.4 H, RBC 2.53 L, Hgb 7.8 L, Hct 24.8 L, MCV 98.0 H, MCH 30.8, MCHC 31.5 L, RDW 16.7, Plt Count 107 L, MPV 11.5 H, Neut % (Auto) 88.9 H, Lymph % (Auto) 3.4 L, [place] % (Auto) 4.5, Eos % (Auto) 0.2, Baso % (Auto) 0.3, Neut # (Auto) 16.4 H, Lymph # (Auto) 0.6 L, [place] # (Auto) 0.8, Eos # (Auto) 0.0, Baso # (Auto) 0.1, Sodium 137, Potassium 4.4, Chloride 100, Carbon Dioxide 27, Anion Gap 14.4, BUN 16, Creatinine 1.00, Estimated Creat Clear 68, Estimated GFR 76, Est GFR ( Amer) 92, Glucose 116 H, Calcium 9.2, Total Bilirubin 0.6, AST 34, ALT 38, Alkaline Phosphatase 193 H, Total Protein 7.0, Albumin 3.3 L, Globulin 3.7 H, Albumin/Globulin Ratio 0.9 L, Lipase 18 L, Blood Type A Positive, Antibody Screen Negative 03/19/25 01:45: Urine Color Yellow, Urine Appearance Clear, Urine pH 7.0, Ur Specific [place] 1.010, Urine Protein Trace, Urine Glucose (UA) Negative, Urine Ketones Negative, Urine Blood 1+ A, Urine Nitrate Negative, Urine Bilirubin Negative, Urine Urobilinogen 0.2, Ur Leukocyte Esterase Negative, Urine RBC 3-5, Urine WBC Occasional, Ur Squamous Epith Cells None, Calcium Oxalate Crystal Trace, Urine Bacteria Trace 03/18/25 23:28 03/18/25 23:28 Orders (Tests/Meds): ED MEDICATIONS Discontinued Medications Generic Name Dose Route Start Last Admin Trade Name Felix PRN Reason Stop Dose Admin Iopamidol 75 ml 03/19/25 00:08 03/19/25 00:10 Iopamidol-370 (76%);100ml Bottle IV 03/19/25 00:09 75 ml ONCE ONE Administration Morphine Sulfate 4 mg 03/18/25 23:14 03/18/25 23:33 Morphine 4mg/Ml Syringe IV 03/18/25 23:15 4 mg ONCE ONE Administration Morphine Sulfate 4 mg 03/19/25 02:54 03/19/25 02:58 Morphine 4mg/Ml Syringe IV 03/19/25 02:55 4 mg ONCE ONE Administration Ondansetron HCl 4 mg 03/18/25 23:40 03/18/25 23:45 Ondansetron 4mg/2ml Vial IV 03/18/25 23:41 4 mg ONCE ONE Administration Sodium Chloride 10 ml 03/19/25 00:08 03/19/25 00:10 Sodium Chloride 0.9% 10ml Syr (Rad Only) IV 03/19/25 00:09 10 ml ONCE ONE Administration ORDERS Category Date Time Status Type and Screen Stat BBK 03/18/25 23:[address] abdomen pelvis w con Stat Cat Scan 03/19/25 00:00 Completed CBC w/Auto Diff [Complete Blood Count Auto Diff] Stat Lab 03/18/25 23:28 Completed CMP [Comprehensive Metabolic Panel] Stat Lab 03/18/25 23:28 Completed Lipase Stat Lab 03/18/25 23:28 Completed UA [Urinalysis and Microscopic] Stat Lab 03/19/25 01:45 Completed Medical Decision Narrative: 59-year-old male with widely metastatic lung cancer presents for worsening right sided abdominal/flank/low back pain.. History was obtained via interactive discussion with patient, family, chart review. On arrival, patient is [afebrile, hemodynamically stable, satting appropriately, alert, oriented x4, GCS 15], moving all extremities spontaneously. Full physical exam performed and significant for no significant abdominal tenderness on exam. Some tenderness to the right iliac crest. Differential includes but is not limited to bowel obstruction, worsening metastatic disease, appendicitis, colitis, Patient was given morphine, Zofran for symptomatic management and correction of underlying abnormalities. Workup initiated including CBC CMP lipase CT abdomen pelvis with IV contrast. On re-evaluation, patient [remains afebrile, HD stable.] Laboratory workup independently interpreted by me and significant for leukocytosis white count of 18, hemoglobin 7.8, improved from prior, no significant renal dysfunction normal lipase, urine not consistent with infection.. Imaging independently interpreted by me and significant for stable dilation of the right colon with stool and gas. May be minimally increased from prior, but not significantly. Patient has a lytic lesion to the right iliac wing which is likely the source of the patient's pain. See radiology read for full review of final results. Given patient history, exam and workup, patient's presentation most likely represents bony pain secondary to worsening metastatic disease. No evidence of emergent or surgical pathology at this time. The source of the leukocytosis is not clear, patient has been treated appropriately for the pneumonia noted on the chest x-ray, is not febrile and is otherwise asymptomatic. I do not think patient requires any further antibiotic treatment at this time based solely on a leukocytosis. Recommend they increase the bowel regimen at home to try to decrease the stool burden within the right colon. Patient was discharged in stable condition with return precautions and instructions regarding symptomatic care. Procedures Risk/Benefits of Procedure(s) Were Explained: Yes Critical Care Critical Care Time Critical Care Time: No
--- OUTSIDE RECORDS SUMMARY | 2025-03-18 23:06 | XMS_ITS | Encounter Summary ---
Author Organization Healthcare Address [address] [place] [address] Care Team Providers Care Sulfuric Acid Plant Supervisor Name Role Phone Constantine Stiles APRN Primary Care Provider [phone] Lars Dalton MD Unavailable Farhat Gómez MD Unavailable Alanis Lebron LPN Unavailable Unavailabl e Encounter Details Date Type Department Care Team (Late Contact Info) Description 02/28/2023 Orders Only External Location [address] [place] [address] Provider, External Social History Tobacco Use Types [...] Care Team (Late Contact Info) Description 03/23/2025 10:30 AM EDT Clinical Support [facility] [address] [facility], [address] [place] [address] 03/23/2025 11:00 AM EDT Office Visit [facility] [address] [facility] [place] [address] Maninder Zhang MD [address] [facility] Shannan Dubois [facility] [address] [place] [address] 03/23/2025 12:00 PM EDT Appointment [facility] [address] [place] [address] documented as of this encounter Procedures Procedure [...] filedocumented in this encounter Additional Health Concerns Infection Onset Date Last Indicated Resolved Time Respiratory Rule-Out 03/08/2025 03/09/2025 025 8:29 AM EDT COVID-19 Rule-Out 03/13/2025 03/13/2025 03/13/2025 2:00 PM EDT Respiratory Rule-Out 03/13/2025 03/13/2025 025 3:05 PM EDT documented as of this encounter Care Teams Sulfuric Acid Plant Supervisor Relationship Specialty Start Date End Date Constantine Stiles APRN [address] [place] [id number] PCP - General 01/21/23 Lars Dalton MD [address] [phone] Consulting Physician Radiation Oncology 03/08/24 Farhat Gómez MD [address] [address] Consulting Physician Radiation Oncology 10/27/[address] [facility] TCM Nurse 03/17/25 documented as of this encounter
--- OUTSIDE RECORDS SUMMARY | 2025-03-18 23:06 | XMS_ITS | Encounter Summary ---
Author Organization Healthcare Address [address] [place] [address] Care Team Providers Care Turning Machine Operator Name Role Phone Constantine Stiles APRN Primary Care Provider [phone] Lars Dalton MD Unavailable Farhat Gómez MD Unavailable Alanis Lebron LPN Unavailable Unavailabl e Encounter Details Date Type Department Care Team (Late st Contact Info) Description 04/27/2022 Orders Only External Location [address] [place] [id number] Adria Eldridge MD [address] [place] [address] Social History Tobacco Use Types Packs/Day Years [...] & Respiratory [address] [facility], [address] [place] [address] 03/23/2025 11:00 AM EDT Office Visit [facility] [address] [facility], [address] [place] [address] Maninder Zhang MD [address] [facility] Shannan Dubois [address] [address] 03/23/2025 12:00 PM EDT Appointment [facility] [address] [place] [address] documented as of this encounter Procedures Procedure [...] documented as of this encounter Care Teams Turning Machine Operator Relationship Specialty Start Date End Date Constantine Stiles APRN [address] [place] [id number] PCP - General 01/21/23 Lars Dalton MD [address] [address] Consulting Physician Radiation Oncology 03/08/24 Farhat Gómez MD [address] [address] Consulting Physician Radiation Oncology 10/27/24 Alanis Lebron LPN [facility] TCM Nurse 03/17/25 documented as of this encounter
--- OUTSIDE RECORDS SUMMARY | 2025-03-18 23:06 | XMS_ITS | Encounter Summary ---
Author Organization Healthcare Address [address] [place] [address] Care Team Providers Care Slasher Name Role Phone Constantine Stiles APRN Primary Care Provider [phone] aFrhat Gómez MD Unavailable Alanis Lebron LPN Unavailable Unavailabl e Reason for Visit * Reason Comments TCM Call Encounter Details Date Type Department Care Team (Late st Contact Info) Description 03/17/2025 Patient Outreach POP[facility] [address], [address] [place] [address] Alanis Lebron LPN [facility] TCM Call Social History Tobacco Use Types Packs/Day Years [...] any time in the past 12 m [facility], were you homeless or living in a [facility] (including now)? No 03/09/2025 CAGE ASSESSMENT Answer [...] drink first t ashanti in the morning (EYE-FINANCIAL ACCOUNTANT) to steady your nerves or to get rid of a hangover? 0 03/09/2025 CAGE Questionnaire Score 0 025 Sex and Gender Information Value Date Recorded Sex Assigned at Not on file Legal Sex Male 10:53 AM EDT Gender Identity Not on file Sexual Orientation Not on file documented as of this encounter Miscellaneous Notes * Progress Notes - Alanis Lebron LPN - 03/17/2025 1:40 PM EDT Admit Date: 03/08/2025 Discharge Date: 03/16/2025 Hospital Service: Hospital Medicine Discharge Diagnosis: Acute on chronic respiratory failure with hypoxia 03/17/2025 TCM call # 1 Patient Reached: Yes Outcome: Called patient for a TCM nurse call. Patient reports he is doing pretty good. Patient denies any chest pain, SOA, nausea, vomiting and fever. Patient has home oxygen at 3 L. Patient reports receiving his medications at discharge. Patient reports he will make a follow up appointment with his PCP. Patient denies any [facility] needs. Patient has no questions or concerns for this nurse at this time. Number provided for patient to call if he should have any questions or concerns arise. Action: N/A Medication changes: per AVS Start taking acetaminophen (Tylenol) 325 mg Take 2 tablets by mouth every 6 hours as needed for pain, fever or headaches hydroxyzine pamoate (Vistaril) 25 mg Take 1 capsule by mouth every 6 hours as needed for anxiety mometasone-formoterol (Dulera 200) 200-5 MCG/ACT inhaler Inhale 2 puffs 2 times a day oxycodone-acetaminophen (Percocet) 5-325 MG Take 1 tablet by mouth every 8 hours as needed for severe pain. pantoprazole (Protonix) Start taking on: March 17, 2025 40 mg Take 1 tablet by mouth daily sodium chloride-sodium bicarbonate (Salt/Soda) Swish and spit 44 g 4 times a day as needed for mucositis cyclobenzaprine (Fexmid) 7.5 mg Take 1 tablet by mouth 3 times a day as needed for muscle spasms Stop taking celecoxib 100 MG capsule (Celebrex) dexamethasone 4 MG tablet (Decadron) ibuprofen 200 MG tablet senna-docusate sodium 8.6-50 MG tablet (Senokot-S) BENJAMIN appointment: Patient will schedule with PCP Items to address at BENJAMIN: N/A documented in this encounter Plan of Treatment Upcoming Encounters Date Type Department Care Team (Late st Contact Info) Description 03/23/2025 10:30 AM EDT Clinical Support [facility] [address] [facility], [address]nd [place] [address] 03/23/2025 11:00 AM EDT Office Visit [facility] [address] [facility], [address]nd [place] [address] Maninder Zhang MD [address] [facility] [address] [place] [phone] 03/23/2025 12:00 PM EDT Appointment [facility] H Infusion [address] [place] [address] documented as of this encounter Visit Diagnoses Not on filedocumented in this encounter Additional Health Concerns Assessment Noted Time A fall risk assessment has been complete d for the patient 03/02/2025 10:44 AM EDT A Body Mass Index follow-up plan has been documented for the patient 03/16/2025 4:08 PM EDT documented as of this encounter Care Teams Slasher Relationship Specialty Start Date End Date Constantine Stiles APRN [address] [place] [address] PCP - General 01/21/23 Farhat Gómez MD [address] [facility] [address] [place] [address] Consulting Physician Radiation Oncology 10/27/24 Alanis Lebron LPN [facility] TCM Nurse 03/17/25 documented as of this encounter
--- OUTSIDE RECORDS SUMMARY | 2025-03-18 23:07 | XMS_ITS | Clinical Summary ---
Author Organization [employer] ([place], [place], [place], [place]) Address [address] [place] [address] Care Team Providers Care Spiral Runner Name Role Phone Unavailable Primary Care Provider Unavailabl e Social History Tobacco Use Types Packs/Day Years Used Date Smoking Tobacco: Never Assessed Food Insecurity Answer Date Recorded Food run [...] Date Doug rded Speak language other than [place] at home Not on file 01/19/2024 Want help with school or training Not on file 01/19/2024 Substance Use Answer Date Recorded Used [...] (Zoster) (1 of 2) 12/20/2013 COVID-19 VACCINE ( season) 2024, 11/09/2020 Influenza Vaccine (#1) 2025 Respiratory Syncytial Virus (RSV) Adult or (1 - 1-dose 75+ series) 12/20/2038
--- OUTSIDE RECORDS SUMMARY | 2025-03-18 23:07 | XMS_ITS | Encounter Summary ---
Author Organization Healthcare Address [address] [place] [address] Care Team Providers Care Ripsaw Matcher Name Role Phone Darrylbobby Constantine Ashford APRN Primary Care Provider [phone] Farhat Gómez MD Unavailable Reason for Visit * Reason Comments Med Refill Encounter Details Date Type Department Care Team (Late Contact Info) Description 01/26/2025 Refill [facility] Radiation [id number] [place] [address] Farhat Gómez MD [address] [place] [address] Social History Tobacco Use Types [...] & Respiratory [address], [address] [place] [address] 03/23/2025 11:00 AM EDT Office Visit [facility] [address] [facility], [address]nd [place] [address] Maninder Zhang MD [address] [facility] [address] [facility] [address] [place] [phone] 03/23/2025 12:00 PM EDT Appointment [facility] H Infusion [address] [place] [phone] documented as of this encounter Visit Diagnoses Not on filedocumented in this encounter Additional Health Concerns Assessment Noted Time A fall risk assessment has been complete d for the patient 01/19/2025 9:13 AM EDT A Body Mass Index follow-up plan has been documented for the patient 01/19/2025 4:11 PM EDT documented as of this encounter Care Teams Ripsaw Matcher Relationship Specialty Start Date End Date Constantine Stiles APRN [address] [place] [address] PCP - General 01/21/23 Farhat Gómez MD [address] [facility] [address] [place] [phone] Consulting Physician Radiation Oncology 10/27/24 documented as of this encounter
--- OUTSIDE RECORDS SUMMARY | 2025-03-18 23:07 | XMS_ITS | Encounter Summary ---
Author Organization Healthcare Address [address] [place] [address] Care Team Providers Care Director Money Name Role Phone Constantine Stiles APRN Primary Care Provider [phone] Farhat Gómez MD Unavailable Encounter Details Date Type Department Care Team (Latest Contact Info) Description 03/10/2025 Travel Social History Tobacco Use Types Packs/Day [...] any time in the past 12 m [facility], were you homeless or living in a [facility] (including now)? No 03/09/2025 CAGE ASSESSMENT Answer [...] Have you had a drink first t ashnati in the morning (EYE-PLANT RELIABILITY ENGINEER) to steady your nerves or to [...] Date of Assessment Author No Risk Indicated 03/10/2025 10:00 PM EDT Nhi Barajas * Question Answer Date of Assessment Author 1. Wish to be (Past 1 Month) No 025 10:00 PM EDT Nhi García 2. Non-Specific Active Suici ester Thoughts (Past 1 Month) No 03/10/2025 10:00 PM EDT Lucy García 6. Suicidal Behavior (Lifetime) No 10:00 PM EDT Nhi García documented as of this encounter Plan of Treatment Upcoming Encounters Date Type Department Care Team (Late st Contact Info) Description 03/23/2025 10:30 AM EDT Clinical Support [facility] Respiratory [address] [place] [address] 03/23/2025 11:00 AM EDT Office Visit [facility] Neck [facility] Respiratory [address] [place] [address] Maninder Zhang MD [address] [place] [phone] 03/23/2025 12:00 PM EDT Appointment [facility] H Infusion [address] [place] [phone] documented as of this encounter Visit Diagnoses Not on filedocumented in this encounter Additional Health Concerns Assessment Noted Time A fall risk assessment has been complete d for the patient 03/02/2025 10:44 AM EDT A Body Mass Index follow-up plan has been documented for the patient 03/16/2025 4:08 PM EDT documented as of this encounter Care Teams Director Money Relationship Specialty Start Date End Date Constantine Stiles APRN [address] [place] [address] PCP - General 01/21/23 Farhat Gómez MD [address] [place] [address] Consulting Physician Radiation Oncology 10/27/24 documented as of this encounter
--- OUTSIDE RECORDS SUMMARY | 2025-03-18 23:07 | XMS_ITS ---
Author Organization [facility] Address [address] [place] [address] Care Team Providers Care Sleeve Maker Name Role Phone Constantine Stiles APRN Primary Care Provider [phone] Farhat Gómez MD Unavailable Alanis Lebron LPN Unavailable Unavailabl e Transitional Care Management Status:Active (Active) Start date:03/17/2025 Enrollment date:03/17/2025 Enrollment reason:Identified using hospital discharge data Overview This episode type is for outpatient care managers enrolling patients in the [facility] Transitional Care Management program. Case Team Name Relationship Phone Alanis eLbron LPN(Responsible Staff) TCM Nurs e Continued Care and Services Coordination
--- OUTSIDE RECORDS SUMMARY | 2025-03-18 23:07 | XMS_ITS | Encounter Summary ---
Author Organization Healthcare Address [address] [place] [address] Care Team Providers Care Card Maker Name Role Phone Constantine Stiles APRN Primary Care Provider [phone] Farhat Gómez MD Unavailable Encounter Details Date Type Department Care Team (Late st Contact Info) Description 03/08/2025 Orders Only External Location [address] [place] [address] Provider, External Social History Tobacco Use Types [...] time in the past 12 m [facility], were you homeless or living in a care home (including now)? No 03/09/2025 CAGE ASSESSMENT [...] drink first t ashanti in the morning (EYE-CEMENT LOADER) to steady your nerves or to get [...] Date of Assessment Author No Risk Indicated 03/14/2025 8:00 AM EDT Sena Rogers, DONNA * Question Answer Date of Assessment Author 1. Wish to be (Past 1 Month) No 03/14/2025 8:00 AM EDT Nena Eduardo, DONNA 2. Non-Specific Active Suicidal Thoughts (Past 1 Month) No 03/14/2025 8:00 AM EDT Nena Eduardo, DONNA 6. Suicidal Behavior (Lifetime) No 03/14/2025 8:00 AM EDT Nena Eduardo, DONNA documented as of this encounter Plan of Treatment Upcoming Encounters Date Type Department Care Team ([facility] st Contact Info) Description 03/23/2025 10:30 AM EDT Clinical Support Pav [facility] Neck [facility] Respiratory [address] [facility], [address]nd [place] [address] 03/23/2025 11:00 AM EDT Office Visit Pav [facility] Head[facility] Neck [facility] Respiratory [address] [facility], [address] [place] [address] Maninder Zhang MD [address] [facility] [address] Silv[address] [facility] [address] [place] [address] 03/23/2025 12:00 PM EDT Appointment [facility] H Infusion [address] [place] [address] documented as of this encounter Procedures Procedure Name Priority Date/Time Associated Diagnosis Comments CT OUTSIDE IMAGES 03/08/2025 2:29 PM EDT documented in this encounter Results * CT OUTSIDE IMAGES (03/08/2025 2:29 PM EDT) Anatomical Region Laterality Modality Computed Tomogra phy 03/08/2025 2:29 PM EDT us External Provider IMG CT PROCEDURES [...] documented as of this encounter Care Teams Card Maker Relationship Specialty Start Date End Date Constantine Stiles APRN [address] [place] [address] PCP - General 01/21/23 Farhat Gómez MD [address] [place] [address] Consulting Physician Radiation Oncology 10/27/24 documented as of this encounter
--- OUTSIDE RECORDS SUMMARY | 2025-03-18 23:07 | XMS_ITS | Encounter Summary ---
Author Organization Healthcare Address [address] [place] [address] Care Team Providers Care Ends Breakage Clerk Name Role Phone Constantine Stiles APRN Primary Care Provider [phone] Farhat Gómez MD Unavailable Encounter Details Date Type Department Care Team (Latest Contact Info) Description 03/12/2025 Travel Social History Tobacco Use Types Packs/Day [...] any time in the past 12 m [facility], were you homeless or living in a snf (including now)? No 03/09/2025 CAGE ASSESSMENT Answer [...] drink first t ashanti in the morning (EYE-SPANISH INSTRUCTOR) to steady your nerves or to get [...] Date of Assessment Author No Risk Indicated 03/12/2025 9:00 PM EDT Linwood Reynolds II, RN * Question Answer Date of Assessment Author 1. Wish to be (Past 1 Month) No 03/12/2025 9:00 PM EDT Linwood Reynolds II, RN 2. Non-Specific Active Suicidal Thoughts (Past 1 Month) No 03/12/2025 9:00 PM EDT Linwood Reynolds II, RN 6. Suicidal Behavior (Lifetime) No 03/12/2025 9:00 PM EDT Linwood Reynolds II, RN documented as of this encounter Plan of Treatment Upcoming Encounters Date Type Department Care Team (Late st Contact Info) Description 03/23/2025 10:30 AM EDT Clinical Support Pav [facility] Head[facility] Neck [facility] Respiratory [address] [facility], [address] [place] [address] 03/23/2025 11:00 AM EDT Office Visit Pav [facility] Head[facility] Neck & Respiratory [address] [facility], [address] [place] [phone] Maninder Zhang MD [address] [facility] [address] [facility] [address] [place] [address] 03/23/2025 12:00 PM EDT Appointment [facility] H Infusion [address] [place] [phone] documented as of this encounter Visit Diagnoses Not on filedocumented in this encounter Additional Health Concerns Assessment Noted Time A fall risk assessment has been complete d for the patient 03/02/2025 10:44 AM EDT A Body Mass Index follow-up plan has been documented for the patient 03/16/2025 4:08 PM EDT documented as of this encounter Care Teams Ends Breakage Clerk Relationship Specialty Start Date End Date Constantine Stiles APRN [address] [place] [address] PCP - General 01/21/23 Farhat Gómez MD [address] [facility] [address] [place] [address] Consulting Physician Radiation Oncology 10/27/24 documented as of this encounter
--- OUTSIDE RECORDS SUMMARY | 2025-03-18 23:07 | XMS_ITS | Clinical Summary ---
Author Organization [facility] Address [address] [place] [address] Care Team Providers Care Home Health Clinical Supervisor Name Role Phone Constantine Stiles APRN Primary Care Provider [phone] Farhat Gómez MD Unavailable Alanis Lebron LPN Unavailable Unavailabl e Allergies No known active allergies Medications albuterol 108 (90 Base) MCG/ACT inhaler Inhale 2 puffs every 6 hours as needed for wheezing or shortness of breath. 02/10/20 24 Active guaiFENesin (MUCINEX PO) Take by mouth 2 times a day as needed. Active Vraylar 1.5 MG capsule Take 1 capsule by mouth daily. 03/09/20 24 Active oxygen (O2) gas Inhale 2 L/min continuously at 120,000 mL/hr. via nasal canula Active gabapentin (Neurontin) 800 MG tablet Take 1 tablet by mouth 3 times a day. 11/03/19 25 Active prochlorperazin e (Compazine) 10 MG tabletIndicatio ns:Malignant neoplasm of upper lobe of left lung (CMS/HCC) Take 1 tablet by mouth every 6 hours as needed for nausea or vomiting. 30 tablet 5 12/21/19 25 Active ondansetron (Zofran) 8 MG tabletIndicatio ns:Malignant neoplasm of upper lobe of left lung (CMS/HCC) Take 1 tablet by mouth in the morning and 1 tablet before bedtime. Take for two days, starting the day after chemotherapy and then take PRN. 30 tablet 5 12/21/19 25 Active docusate sodium (Colace) 100 MG capsule Take 1 capsule by mouth daily. 01/07/20 25 Active tamsulosin (Flomax) 0.4 MG 24 hr capsule Take by mouth daily. 01/07/20 25 Active OLANZapine (ZyPREXA) 5 MG tablet Take 0.5 tablets by mouth nightly. 15 tablet 01/13/20 25 Active prochlorperazin e (Compazine) 10 MG tabletIndicatio ns:Malignant neoplasm of upper lobe of left lung (CMS/HCC) Take 1 tablet by mouth every 6 hours as needed for nausea or vomiting. 30 tablet 5 01/13/20 25 Active polyethylene glycol (Miralax) 17 GM/SCOOP powder Take 17 g by mouth daily as needed. Active acetaminophen (Tylenol) 325 MG tablet Take 2 tablets by mouth every 6 hours as needed for pain, fever or headaches. Under [place] law, monthly prescriptions (30 days) can be refilled at 25 days and three-month prescriptions (90 days) at 80 days. Please contact the insurance company with questions if refills are denied. 03/16/20 25 Active cyclobenzaprine (Fexmid) 7.5 MG tablet Take 1 tablet by mouth 3 times a day as needed for muscle spasms. 15 tablet 03/16/20 25 025 Active hydrOXYzine pamoate (Vistaril) 25 MG capsule Take 1 capsule by mouth every 6 hours as needed for anxiety. 15 capsule 03/16/20 25 025 Active sodium chloride-sodium bicarbonate (Salt/Soda) oral rinse Swish and spit 44 g 4 times a day as needed for mucositis (mucositis prevention). 44 g 03/16/20 25 025 Active pantoprazole (Protonix) 40 MG EC tablet Take 1 tablet by mouth daily. Do not crush, chew, or split. 30 tablet 03/17/20 25 025 Active mometasone-form oterol (Dulera 200) 200-5 MCG/ACT inhaler Inhale 2 puffs 2 times a day. Rinse mouth with water after use to reduce aftertaste and incidence of candidiasis. Do not swallow. 13 g 11 03/16/20 25 025 Active oxyCODONE-aceta minophen (Percocet) 5-325 MG tablet Take 1 tablet by mouth every 8 hours as needed for severe pain. 20 tablet 03/16/20 Active buprenorphine-n aloxone (Suboxone) 8-[address] 1 tablet under the tongue daily. 01/10/20 23 025 Discontin ued(Enter ed in Error) gabapentin (Neurontin) 600 MG tablet Take 1 tablet (600 mg) by mouth 2 (two) times a day. 12/24/19 Discontin ued(Enter ed in Error) Stiolto Respimat 2.5-2.5 MCG/ACT aerosol solution inhaler 1 (one) time each day. 02/10/20 24 025 Discontin ued(Enter ed in Error) ibuprofen 200 MG tablet Take 2 tablets by mouth daily. Discontin ued(Stop Taking at Discharge ) nicotine polacrilex (Nicorette) 2 MG gum 07/01/20 Discontin ued(Enter ed in Error) senna-docusate sodium (Senokot-S) 8.6-50 MG tablet Take 1 tablet by mouth 2 (two) times a day as needed for constipation. 60 tablet 2 12/02/19 25 Discontin ued(Stop Taking at Discharge ) magnesium citrate 1.745 GM/30ML oral solution drink 296 ML BY MOUTH ONCE NEEDED FOR constipation 01/07/20 25 Discontin ued(Enter ed in Error) dexamethasone (Decadron) 4 MG tabletIndicatio ns:Malignant neoplasm of upper lobe of left lung (CMS/HCC) Take 2 tablets by mouth daily. Take for 3 days starting the day after chemo. 24 tablet 01/13/20 25 025 Discontin ued(Stop Taking at Discharge ) cyclobenzaprine (Flexeril) 10 MG tablet TAKE ONE TABLET BY MOUTH 2 TIMES A DAY NEEDED FOR MUSCLE SPASMS 30 tablet 1 02/02/20 25 Discontin ued(Stop Taking at Discharge ) celecoxib (CeleBREX) 100 MG capsule Take 1 capsule by mouth daily. Discontin ued(Stop Taking at Discharge ) Active Problems Problem Noted Date Diagnosed Date Acute on chronic respiratory failure with hypoxi a 03/09/2025 Pancytopenia due to chemotherapy 03/09/2025 Pneumonia of both lungs due to infectious organi sm 03/08/2025 Antineoplastic chemotherapy induced anemia 03/03 Encounter for antineoplastic chemotherapy 2024 Neck pain 06/19/2024 Second hand smoke exposure 06/18/2024 Malignant neoplasm of upper lobe of left lung Cancer Staging:Clinical: cT1, cN0, cM0 - Signed by Lars Dalton MD on 03/10/2024 Squamous cell carcinoma of left lung 03/10/2024 Cancer Staging:Clinical stage from 10/27/2024:Stage IIIA(ycT1c, ycN2, cM0) - Signed by Maninder Zhang MD on 10/28/2024 Assessment & Plan (03/16/2025 1:16 PM EDT): Described as early stage lung cancer in [...] Lisa(via phone). Bryson had expressed to them that he wants to go home. They are all [...] to remain in hospital and get the treatment his doctors think he needs to try and [...] with having same placed on his chart. Chronic obstructive pulmonary disease, unspecifi ed 12/25/2023 Low back pain 03/04/2023 Spinal stenosis of lumbar re gion with neurogenic claudication 03/04/2023 DDD (degenerative disc disease), lumbar 03/04/20 23 Facet arthropathy, lumbar 03/04/2023 Herniated nucleus pulposus, L3-4 right 3 Resolved Problems Problem Noted Date Diagnosed Date Resolved Date Dysphagia 06/19/2024 03/11/2025 Encounters Date Type Department Care Team Description 03/17/[address] [facility] [address] [facility], [address] [place] [address] Alanis Lebron LPN TCM Call 03/14/2025 Travel 03/12/2025 Travel 03/10/2025 Travel 03/08/2025 4:56 PM EDT - 03/16/2025 4:48 PM EDT Hospital Encounter [facility] [address] [place] [phone] Kayleigh Carter MD MacPherson, Alexandra, DO Murray, Sarah C, Pooja Garg MD Pneumonia of both lungs due to infectious organism, unspecified part of lung (Primary Dx); Pancytopenia; Squamous cell carcinoma of left lung; Acute on chronic respiratory failure with hypoxia; Generalized weakness Discharge Disposition: Home or Self Care 03/08/2025 Travel 03/08/2025 Orders Only External Location [address] [place] [phone] Provider, External 03/08/2025 Orders Only External Location [address] [place] [address] Provider, External 03/08/2025 Orders Only External Location [address] [place] [phone] Provider, External 03/02/2025 11:21 AM EDT - 03/02/2025 11:59 PM EDT Hospital Encounter [facility] Infusion [address] [place] [address] Malignant neoplasm of upper lobe of left lung (CMS/HCC) Discharge Disposition: Home or Self Care 03/02/2025 10:30 AM EDT - 03/02/2025 11:20 AM EDT Hospital Encounter [facility] Infusion [address] [place] [address] Malignant neoplasm of upper lobe of left lung (CMS/HCC) (Primary Dx) Discharge Disposition: Home or Self Care 03/02/2025 9:00 AM EDT Office Visit [facility] [address] [address] Maninder Zhang MD Malignant neoplasm of upper lobe of left lung (CMS/HCC) (Primary Dx); Encounter for antineoplastic chemotherapy; Antineoplastic chemotherapy induced anemia 03/02/2025 8:45 AM EDT Clinical Support [facility] [address] [address] Malignant neoplasm of upper lobe of left lung (CMS/HCC) 03/02/2025 Travel 02/15/2025 Orders Only External Location [address] [place] [address] Provider, External 02/15/2025 Orders Only External Location [address] [place] [address] Provider, External 02/10/2025 Orders Only [facility] [address] [address] Tiffany Rosario, RN Squamous cell carcinoma of left lung (Primary Dx); Malignant neoplasm of upper lobe of left lung (CMS/HCC) 02/09/2025 12:30 PM EDT - 02/09/2025 11:59 PM EDT Hospital Encounter [facility] [address] [place] [address] Malignant neoplasm of upper lobe of left lung (CMS/HCC) (Primary Dx) Discharge Disposition: Home or Self Care 02/09/2025 11:30 AM EDT Office Visit [facility] [address] [address] Elsa Judge APRN Malignant neoplasm of upper lobe of left lung (CMS/HCC) (Primary Dx); Dyspnea on exertion; Chemotherapy induced nausea and vomiting 02/09/2025 11:15 AM EDT Clinical Support [facility] [address] [place] [address] 02/09/2025 Travel 02/09/2025 Orders Only [facility] [address] [place] [address] Maninder Zhang MD Malignant neoplasm of upper lobe of left lung (CMS/HCC) (Primary Dx) 02/09/2025 Telephone [facility] [address] [place] [address] Tiffany Rosario, DONNA 01/26/2025 Refill [facility] Radiation [address] [place] [phone] Farhat Gómez MD 01/19/2025 9:11 AM EDT - 01/19/2025 11:59 PM EDT Hospital Encounter [facility] [address] [place] [phone] Malignant neoplasm of upper lobe of left lung (CMS/HCC) (Primary Dx) Discharge Disposition: Home or Self Care 01/19/2025 9:00 AM EDT Clinical Support [facility] [address] [place] [address] Malignant neoplasm of upper lobe of left lung (CMS/HCC) 01/19/2025 Travel 01/13/2025 Telephone [facility] [address], [address] [place] [phone] Tiffany Rosario, RN 01/12/2025 10:20 AM EDT Office Visit [facility] [address], [address] [place] [phone] Maninder Zhang MD Malignant neoplasm of upper lobe of left lung (CMS/HCC) (Primary Dx); Squamous cell carcinoma of left lung; Elevated glucose level; Encounter for antineoplastic chemotherapy 01/12/2025 Travel 01/10/2025 2:23 PM EDT - 01/10/2025 11:59 PM EDT Hospital Encounter [facility] Radiology [address] [place] [address] Malignant neoplasm of upper lobe of left lung (CMS/HCC) Discharge Disposition: Home or Self Care 01/10/2025 1:45 PM EDT Clinical Support [facility] [address] [facility] [place] [address] Malignant neoplasm of upper lobe of left lung (CMS/HCC) 01/10/2025 Orders Only [facility] [address] [facility] [place] [phone] Maninder Zhang MD 01/10/2025 Travel 12/28/2024 2:37 PM EDT - 12/28/2024 11:59 PM EDT Hospital Encounter [facility] Radiation [address] [phone] Discharge Disposition: Still a Patient 12/28/2024 Orders Only [facility] Radiation [address] [address] Radiation Oncology, PhysicianMD 12/28/2024 Orders Only [facility] Radiation [address] [phone] Radiation Oncology, PhysicianMD 12/28/2024 Telephone [facility] [address] [phone] Tiffany Rosario RN 12/27/2024 2:42 PM EDT - 12/27/2024 11:59 PM EDT Hospital Encounter [facility] [address] [phone] Farhat Gómez MD Squamous cell carcinoma of left lung (Primary Dx) Discharge Disposition: Still a Patient 12/27/2024 2:42 PM EDT - 12/27/2024 11:59 PM EDT Hospital Encounter [facility] [address] [phone] Discharge Disposition: Still a Patient 12/27/2024 9:19 AM EDT - 12/27/2024 2:41 PM EDT Hospital Encounter [facility] Radiation [address] [phone] Discharge Disposition: Still a Patient 12/27/2024 Orders Only [facility] Radiation [address] [address] Radiation Oncology, PhysicianMD 12/27/2024 Travel 12/24/2024 2:34 PM EDT - 12/24/2024 11:59 PM EDT Hospital Encounter [facility] Rad[facility] [address] [address] Discharge Disposition: Still a Patient 12/24/2024 Orders Only [facility] Radiation [address] [address] Radiation Oncology, PhysicianMD 12/23/2024 2:37 PM EDT - 12/23/2024 11:59 PM EDT Hospital Encounter [facility] Radiation [address] [phone] Discharge Disposition: Still a Patient 12/23/2024 Orders Only [facility] Radiation [address] [address] Radiation Oncology, PhysicianMD 12/22/2024 2:34 PM EDT - 12/22/2024 11:59 PM EDT Hospital Encounter [facility]iation [address] [address] Discharge Disposition: Still a Patient 12/22/2024 11:48 AM EDT - 12/22/2024 2:33 PM EDT Hospital Encounter [facility] Infusion [address] [place] [address] Malignant neoplasm of upper lobe of left lung (CMS/HCC) (Primary Dx); Squamous cell carcinoma of left lung Discharge Disposition: Home or Self Care 12/22/2024 Orders Only [facility] Radiation [address] [address] Radiation Oncology, PhysicianMD 12/22/2024 Travel 2024 2:36 PM EDT - 2024 11:59 PM EDT Hospital Encounter [facility] [address] [address] Discharge Disposition: Still a Patient 2024 Orders Only [facility] Radiation [address] [address] Radiation Oncology, PhysicianMD 12/20/2024 3:25 PM EDT - 12/20/2024 11:59 PM EDT Hospital Encounter [facility] [address] [address] Farhat Gómez MD Malignant neoplasm of upper lobe of left lung (CMS/HCC) Discharge Disposition: Still a Patient 12/20/2024 2:32 PM EDT - 12/20/2024 3:24 PM EDT Hospital Encounter [facility] [address] [address] Discharge Disposition: Still a Patient 12/20/2024 8:44 AM EDT - 12/20/2024 2:31 PM EDT Hospital Encounter [facility] [address] [address] Discharge Disposition: Still a Patient 12/20/2024 Orders Only [facility] Radiation [address] [address] Radiation Oncology, PhysicianMD 12/20/2024 Travel 12/17/2024 2:32 PM EDT - 12/17/2024 11:59 PM EDT Hospital Encounter [facility] Radiation [address] [address] Discharge Disposition: Still a Patient 12/17/2024 Orders Only [facility] Radiation [address] [address] Radiation Oncology, PhysicianMD from Last 3 Months Family History Medical [...] any time in the past 12 m [facility], were you homeless or living in a senior care (including now)? No 03/09/2025 CAGE ASSESSMENT Answer [...] drink first t ashanti in the morning ([employer]) to steady your nerves or to get [...] Mass Index 18.97 03/08/2025 5:04 PM EDT Plan of Treatment Upcoming Encounters Date Type Department Care Team (Late st Contact Info) Description 03/23/2025 10:30 AM EDT Clinical Support [facility] [address] [facility], [address] [place] [address] 03/23/2025 11:00 AM EDT Office Visit [facility] [address] [facility], [address] [place] [address] Maninder Zhang MD [address] [facility] Shannan Dubois [facility] [address] [place] [address] 03/23/2025 12:00 PM EDT Appointment [facility] Infusion [address] [place] [address] Health Maintenance Due Date Last Done Comments [facility]-Depression Screening 1965 [facility]-Infant/Child/Adol SDOH Screenings 1965 [facility]- SDOH Screenings 12/20/1981 [facility]-Adult SDOH Screenings 12/20/1981 [facility]-DTaP,Tdap,and Td Vaccines (1 - Tdap) 12/20/1982 [facility]-Pneumococcal Vaccine: 50+ Years (1 of 2 - PCV) 12/20/1982 [facility]-Zoster Vaccines (1 of 2) 12/20/1982 CT Colonography 12/20/2008 Colonoscopy 12/20/2008 FIT-DNA 12/20/2008 FIT 12/20/2008 FOBT 12/20/2008 Sigmoidoscopy 12/20/2008 [facility]-Colorectal Cancer Screening 12/20/2008 [id number] Vaccine (3 - Moderna risk series) 01/04/2021 12/07/2020, 11/09/2020 [facility]-RSV Vaccine: 60+ Years or (1 - Risk 60-74 years 1-dose series) 2023 [facility]-Influenza Vaccine (#1) 2025 [facility]-HIV Screening Completed 03/08/2025 [facility]-Hepatitis C Screening Completed 03/08/2025 [facility]-Lung Cancer Screening Discontinued 2024, 01/10/2025, 06/18/2024, Additional history exists HPV Vaccines Aged Out No longer eligi [...] Procedure Name Priority Date/Time Associated Diagnosis Comments PHOSPHORUS, PLASMA Routine 03/16/2025 2: 23 AM EDT MAGNESIUM, PLASMA Routine 03/16/2025 2:2 3 AM EDT COMPREHENSIVE METABOLIC PANEL, PLASMA Routine 03/16/2025 2:23 AM EDT CBC WITH AUTO DIFFERENTIAL Routine 03/16/2025 2:23 AM EDT MAGNESIUM, PLASMA STAT 03/15/2025 1:3 2 PM EDT CBC WITH AUTO DIFFERENTIAL STAT 03/15/2025 1:32 PM EDT OXYGEN THERAPY Routine 03/15/2025 8:00 AM EDT OXYGEN THERAPY Routine 03/14/2025 8:00 PM EDT XR CHEST 1 VIEW Routine 03/14/2025 8:30 AM EDT OXYGEN THERAPY Routine 03/14/2025 8:00 AM EDT TYPE AND SCREEN Routine 03/14/2025 3:04 AM EDT PHOSPHORUS, PLASMA Routine 03/14/2025 3: 04 AM EDT MAGNESIUM, PLASMA Routine 03/14/2025 3:0 4 AM EDT BASIC METABOLIC PANEL, PLASMA Routine 03/14/2025 3:04 AM EDT CBC W/O DIFFERENTIAL Routine 03/14/2025 3:04 AM EDT OXYGEN THERAPY Routine 03/13/2025 8:00 PM EDT MICROBIOLOGY FREQUENCY OVERRIDE Routine 03/13/2025 12:57 PM EDT INFLUENZA A,B AND RESPIRATORY SYNCYTIAL VIRUS (RSV) BY PCR Add-On 03/13/2025 12:45 PM EDT SARS COV-2/COVID-19 BY PCR Routine 03/13/2025 12:45 PM EDT SARS COV-2/COVID-19 BY PCR LAB ORDER ONLY Routine 03/13/2025 12:45 PM EDT NASOPHARYNGEAL RESPIRATORY PANEL Routine 03/13/2025 12:45 PM EDT OXYGEN THERAPY Routine 03/13/2025 8:00 AM EDT COMPREHENSIVE METABOLIC PANEL, PLASMA Pending Discharge 03/12/2025 11:44 PM EDT CBC W/O DIFFERENTIAL Pending Discharge 03/12/2025 11:44 PM EDT BLOOD CULTURE (AEROBIC/ANAEROBIC SET) Pending Discharge 03/12/2025 11:44 PM EDT OXYGEN THERAPY Routine 03/12/2025 8:00 PM EDT CORTISOL Pending Discharge 03/12/2025 5:14 PM EDT US ABDOMEN DOPPLER LIMITED Routine 03/12/2025 3:51 PM EDT US ABDOMEN FOCUSED REGION Routine 03/12/2025 3:51 PM EDT OXYGEN THERAPY Routine 03/12/2025 8:00 AM EDT COMPREHENSIVE METABOLIC PANEL, PLASMA Routine 03/12/2025 3:32 AM EDT CBC WITH AUTO DIFFERENTIAL Routine 03/12/2025 3:32 AM EDT OXYGEN THERAPY [...] EDT MORPHOLOGY Routine 03/10/2025 3:39 AM EDT MANUAL DIFFERENTIAL Routine 03/10/2025 3 :39 AM EDT EXTRA TUBE LIGHT GREEN TOP Routine 03/10/2025 3:39 AM EDT EXTRA TUBES Routine 03/10/2025 3:39 AM EDT LACTATE, VENOUS Routine 03/10/2025 3:39 AM EDT CBC WITH AUTO DIFFERENTIAL Routine [...] AUTO DIFFERENTIAL Routine 03/09/2025 5:29 AM EDT METHICILLIN RESISTANT STAPHYLOCOCCUS AUREUS (MRSA) BY PCR Routine 03/09/2025 5:11 AM EDT NASOPHARYNGEAL RESPIRATORY PANEL Routine 03/09/2025 5:[address] ANGIO PULMONARY EMBOLISM STAT 03/08/2025 11:28 PM EDT BLOOD CULTURE (AEROBIC/ANAEROBIC SET) Routine 03/08/2025 9:44 PM EDT URINALYSIS MICROSCOPIC FOR UA REFLEX Routine 03/08/2025 9:35 PM EDT URINE URIBE PANEL Routine 03/08/2025 9:35 PM EDT URINALYSIS WITH REFLEX MICROSCOPIC Routine 03/08/2025 9:35 PM EDT URINALYSIS WITH REFLEX MICROSCOPIC AND CULTURE Routine 03/08/2025 9:35 PM EDT STREPTOCOCCUS PNEUMONIAE AND LEGIONELLA URINARY ANTIGEN Routine 03/08/2025 9:35 PM EDT LACTATE, VENOUS Routine 03/08/2025 9:19 PM EDT COMPREHENSIVE METABOLIC PANEL, PLASMA Routine 03/08/2025 9:19 PM EDT CBC W/O DIFFERENTIAL Routine 03/08/2025 9:19 PM EDT OXYGEN THERAPY Routine 03/08/2025 8:51 PM EDT OXYGEN THERAPY Routine 03/08/2025 8:51 PM EDT TRANSFUSE RED BLOOD CELLS STAT 03/08/2025 8:00 PM EDT PREPARE RBC STAT 03/08/2025 7:23 PM EDT XR CHEST 1 VIEW STAT 03/08/2025 5:47 PM EDT ECG ADULT STAT 03/08/2025 5:31 PM EDT MORPHOLOGY STAT 03/08/2025 5:26 PM EDT MANUAL DIFFERENTIAL STAT 03/08/2025 5 :26 PM EDT ED HIV 1/2 ANTIBODY/ANTIGEN SCREEN WITH REFLEX TO HIV I/II DIFFERENTIATION STAT 03/08/2025 5:26 PM EDT ED PROTOCOL HIV 1/2 ANTIBODY/ANTIGEN SCREEN W/REFLEX TO HIV 1/2 ANTIBODY DIFFERENTIATION STAT 03/08/2025 5:26 PM EDT HEPATITIS C ANTIBODY - ED W/REFLEX TO HCV QUANT PCR STAT 03/08/2025 5:26 PM EDT TYPE AND SCREEN STAT 03/08/2025 5:26 PM EDT PROTHROMBIN TIME(PT) / INR STAT 03/08/2025 5:26 PM EDT COMPREHENSIVE METABOLIC PANEL, PLASMA STAT 03/08/2025 5:26 PM EDT CBC WITH AUTO DIFFERENTIAL STAT 03/08/2025 5:[address] OUTSIDE IMAGES 03/08/2025 2:[address] OUTSIDE IMAGES 03/08/2025 2:2 9 PM EDT XR OUTSIDE IMAGES 03/08/2025 1:2 4 PM EDT TRANSFUSE RED BLOOD CELLS Routine 03/02/2025 4:50 [...] left lung (CMS/HCC) MAGNESIUM, PLASMA STAT 02/09/2025 11:22 AM EDT Malignant neoplasm of [...] SESSION SUMMARY Routine 12/17/2024 3:05 PM EDT from Last 3 Months Results * (ABNORMAL) CBC and Differential (03/16/2025 2:23 AM EDT) Only the most recent of11 resultswithin the time period is included. WBC Count 10.50(H) 3.70 - 10.30 10*3/uL LAB HEMATOLOGY METHOD 03/16/2025 3:36 AM EDT [facility] RBC Count 2.50(L) 4.60 - 6.10 10*6/uL LAB HEMATOLOGY METHOD 03/16/2025 3:36 AM EDT [facility] HGB 7.5(L) 13.7 - 17.5 g/dL LAB HEMATOLOGY METHOD 03/16/2025 3:36 AM EDT [facility] HCT 24.4(L) 40.0 - 51.0 % LAB HEMATOLOGY METHOD 03/16/2025 3:36 AM EDT [facility] Platelet Count 63(L) 155 - 369 10*3/uL LAB HEMATOLOGY METHOD 03/16/2025 3:36 AM EDT [facility] MCV 98 79 - 98 fL LAB HEMATOLOGY METHOD 03/16/2025 3:36 AM EDT [facility] MCH 30.0 26.0 - 32.0 pg LAB HEMATOLOGY METHOD 03/16/2025 3:36 AM EDT [facility] MCHC 30.7 30.7 - 35.5 g/dL LAB HEMATOLOGY METHOD 03/16/2025 3:36 AM EDT [facility] RDW 15.9(H) 11.5 - 14.5 % LAB HEMATOLOGY METHOD 03/16/2025 3:36 AM EDT [facility] MPV 11.0 8.8 - 12.5 fL LAB HEMATOLOGY METHOD 03/16/2025 3:36 AM EDT [facility] nRBC 0.0 <=0.0 per 100 WBCs LAB HEMATOLOGY METHOD 03/16/2025 3:36 AM EDT [facility] Differential Type Automated LAB HEMATOLOGY METHOD 03/16/2025 3:36 AM EDT [facility] Neutrophils % 86 % LAB HEMATOLOGY METHOD 03/16/2025 3:36 AM EDT [facility] Lymphocytes % 6 % LAB HEMATOLOGY METHOD 03/16/2025 3:36 AM EDT [facility] Monocytes % 6 % LAB HEMATOLOGY METHOD 03/16/2025 3:36 AM EDT [facility] Eosinophils % 0 % LAB HEMATOLOGY METHOD 03/16/2025 3:36 AM EDT [facility] Basophils % 0 % LAB HEMATOLOGY METHOD 03/16/2025 3:36 AM EDT [facility] Immature Granulocytes % 2 % LAB HEMATOLOGY METHOD 03/16/2025 3:36 AM EDT [facility] Neutrophils Absolute 9.03(H) 1.60 - 6.10 10*3/uL LAB HEMATOLOGY METHOD 03/16/2025 3:36 AM EDT [facility] Lymphocytes Absolute 0.60(L) 1.20 - 3.90 10*3/uL LAB HEMATOLOGY METHOD 03/16/2025 3:36 AM EDT [facility] Monocytes Absolute 0.64 0.30 - 0.90 10*3/uL LAB HEMATOLOGY METHOD 03/16/2025 3:36 AM EDT [facility] Eosinophils Absolute 0.02 0.00 - 0.50 10*3/uL LAB HEMATOLOGY METHOD 03/16/2025 3:36 AM EDT [facility] Basophils Absolute 0.02 0.00 - 0.10 10*3/uL LAB HEMATOLOGY METHOD 03/16/2025 3:36 AM EDT [facility] Immature Granulocytes Absolute 0.19(H) 0.00 - 0.06 10*3/uL LAB HEMATOLOGY METHOD 03/16/2025 3:36 AM EDT [facility] Blood Venous blood specimen / Unknown Venipuncture / Unknown 03/16/2025 2:23 AM EDT 03/16/2025 2:40 AM EDT Narrative [facility] - 03/16/2025 3:36 AM EDT Therapeutic decision making should be based on absolute values, rather than percentages. us Pooja Flowers MD LAB BLOOD ORDERABLES Final Res ult [facility] [address] [place] [address] * Phosphorus (03/16/2025 2:23 AM EDT) Only the most recent of2 resultswithin the time period is included. Phosphorus, Plasma 3.5 2.5 - 4.5 mg/dL 03/16/2025 3:09 AM EDT [facility] Blood Venous blood specimen / Unknown Venipuncture / Unknown 03/16/2025 2:23 AM EDT 03/16/2025 2:38 AM EDT us Kathryn Moore MD LAB BLOOD ORDERABLES Final Resu lt Performing Organization Address City/[facility]/ZIP Co de Phone Number [facility] [address] [place] [address] * Magnesium (03/16/2025 2:23 AM EDT) Only the most recent of6 resultswithin the time period is included. Magnesium, Plasma 1.9 1.9 - 2.4 mg/dL 03/16/2025 3:09 AM EDT [facility] Blood Venous blood specimen / Unknown Venipuncture / Unknown 03/16/2025 2:23 AM EDT 03/16/2025 2:38 AM EDT Kathryn Moore MD LAB BLOOD ORDERABLES Final Resu lt Performing Organization Address [facility]/ZIP Co de Phone Number [facility] [address] [place] [address] * (ABNORMAL) Comprehensive Metabolic Panel, Plasma (03/16/2025 2:23 AM EDT) Only the most recent of9 resultswithin the time period is included. Glucose, Plasma 132(H) 74 - 99 mg/dL 03/16/2025 3:09 AM EDT [facility] BUN, Plasma 7(L) 8 - 23 mg/dL 03/16/2025 3:09 AM EDT [facility] Creatinine, Plasma 0.80 0.70 - 1.20 mg/dL 03/16/2025 3:09 AM EDT [facility] BUN/Creatinine Ratio 9 03/16/2025 3:09 AM EDT [facility] Sodium, Plasma 138 136 - 145 mmol/L 03/16/2025 3:09 AM EDT [facility] Potassium, Plasma 3.7 3.6 - 4.9 mmol/L 03/16/2025 3:09 AM EDT [facility] Chloride, Plasma 101 97 - 107 mmol/L 03/16/2025 3:09 AM EDT [facility] CO2, Plasma 26 22 - 29 mmol/L 03/16/2025 3:09 AM EDT [facility] Anion Gap 11 6 - 16 mmol/L 03/16/2025 3:09 AM EDT [facility] Total Calcium, Plasma 9.0 8.9 - 10.2 mg/dL 03/16/2025 3:09 AM EDT [facility] Total Protein 5.8(L) 6.3 - 7.9 g/dL 03/16/2025 3:09 AM EDT [facility] Albumin, Plasma 2.9(L) 3.5 - 5.2 g/dL 03/16/2025 3:09 AM EDT [facility] AST, Plasma 26 10 - 50 U/L 03/16/2025 3:09 AM EDT [facility] ALT, Plasma 56(H) 10 - 50 U/L 03/16/2025 3:09 AM EDT [facility] Alkaline Phosphatase, Plasma 237(H) 40 - 115 U/L 03/16/2025 3:09 AM EDT [facility] Total Bilirubin, Plasma 0.2 0.2 - 1.1 mg/dL 03/16/2025 3:09 AM EDT [facility] eGFRcr 100.7 mL/min/1.7 3m*2 03/16/2025 3:09 AM EDT [facility] Comment:Reported eGFRcr in m L/min/1.73m2 is based the CKD-EPI 2020 equation that does not use a race coefficient. Blood Venous blood specimen / Unknown Venipuncture / Unknown 03/16/2025 2:23 AM EDT 03/16/2025 2:38 AM EDT us Pooja Flowers MD LAB BLOOD ORDERABLES Final Res ult [facility] [address] [place] [address] * XR Chest 1 View (03/14/2025 8:30 AM EDT) Only the most recent of2 resultswithin the time period is included. Anatomical Region Laterality Modality Chest Digital Radiogra [...] Adria Jefferson MD on 03/14/2025 9:41 AM us Kusum Barrera DO IMG XR PROCEDURES Final Result * (ABNORMAL) CBC W/O Differential (03/14/2025 3:04 AM EDT) Only the most recent of3 resultswithin the time period is included. WBC Count 7.05 3.70 - 10.30 10*3/uL LAB HEMATOLOGY METHOD 03/14/2025 3:15 AM EDT [facility] RBC Count 2.47(L) 4.60 - 6.10 10*6/uL LAB HEMATOLOGY METHOD 03/14/2025 3:15 AM EDT [facility] HGB 7.4(L) 13.7 - 17.5 g/dL LAB HEMATOLOGY METHOD 03/14/2025 3:15 AM EDT [facility] HCT 23.4(L) 40.0 - 51.0 % LAB HEMATOLOGY METHOD 03/14/2025 3:15 AM EDT [facility] Platelet Count 54(L) 155 - 369 10*3/uL LAB HEMATOLOGY METHOD 03/14/2025 3:15 AM EDT [facility] MCV 95 79 - 98 fL LAB HEMATOLOGY METHOD 03/14/2025 3:15 AM EDT [facility] MCH 30.0 26.0 - 32.0 pg LAB HEMATOLOGY METHOD 03/14/2025 3:15 AM EDT [facility] MCHC 31.6 30.7 - 35.5 g/dL LAB HEMATOLOGY METHOD 03/14/2025 3:15 AM EDT [facility] RDW 15.8(H) 11.5 - 14.5 % LAB HEMATOLOGY METHOD 03/14/2025 3:15 AM EDT [facility] MPV 11.3 8.8 - 12.5 fL LAB HEMATOLOGY METHOD 03/14/2025 3:15 AM EDT [facility] nRBC 0.0 <=0.0 per 100 WBCs LAB HEMATOLOGY METHOD 03/14/2025 3:15 AM EDT [facility] Blood Venous blood specimen / Unknown Venipuncture / Unknown 03/14/2025 3:04 AM EDT 03/14/2025 3:08 AM EDT us Kusum Barrera DO LAB BLOOD ORDERABLES Final Res ult [facility] [address] [place] [address] * Type and Screen (03/14/2025 3:04 AM EDT) Only the most recent of3 resultswithin the time period is included. ABO/Rh A Positive 03/14/2025 4:00 AM EDT [facility] Antibody Screen Negative 03/14/2025 4:00 AM EDT [facility] Specimen Expiration 03/17/2025 23:59 03/14/2025 4:00 AM EDT [facility] Blood Venous blood specimen / Unknown Venipuncture / Unknown 03/14/2025 3:04 AM EDT 03/14/2025 3:08 AM EDT us Fab Calero MD LAB BLOOD BANK TEST ORDERAB LES Final Result BLOOD BANK [address] [place] [address], * (ABNORMAL) Basic Metabolic Panel, Plasma (03/14/2025 3:04 AM EDT) Glucose, Plasma 150(H) 74 - 99 mg/dL 03/14/2025 3:39 AM EDT [facility] BUN, Plasma 10 8 - 23 mg/dL 03/14/2025 3:39 AM EDT [facility] Creatinine, Plasma 0.82 0.70 - 1.20 mg/dL 03/14/2025 3:39 AM EDT [facility] BUN/Creatinine Ratio 12 03/14/2025 3:39 AM EDT [facility] Sodium, Plasma 135(L) 136 - 145 mmol/L 03/14/2025 3:39 AM EDT [facility] Potassium, Plasma 4.1 3.6 - 4.9 mmol/L 03/14/2025 3:39 AM EDT [facility] Chloride, Plasma 97 97 - 107 mmol/L 03/14/2025 3:39 AM EDT [facility] CO2, Plasma 27 22 - 29 mmol/L 03/14/2025 3:39 AM EDT [facility] Anion Gap 11 6 - 16 mmol/L 03/14/2025 3:39 AM EDT [facility] Total Calcium, Plasma 8.7(L) 8.9 - 10.2 mg/dL 03/14/2025 3:39 AM EDT [facility] eGFRcr 99.9 mL/min/1.7 3m*2 03/14/2025 3:39 AM EDT [facility] Comment:Reported eGFRcr in m L/min/1.73m2 is based the CKD-EPI 2020 equation that does not use a race coefficient. Blood Venous blood specimen / Unknown Venipuncture / Unknown 03/14/2025 3:04 AM EDT 03/14/2025 3:08 AM EDT Kusum Barrera DO LAB BLOOD ORDERABLES Final Res ult Performing Organization Address [facility] Co de Phone Number [facility] [address] [place] [address] * Microbiology Frequency Override (03/13/2025 12:57 PM EDT) [facility] Microbiology Frequency Override Test Comment respiratory viral panel 03/14/2025 5:28 AM EDT [facility] Swab Nasopharyngeal structure / Unknown Non-blood Collection / Unknown 03/13/2025 12:57 PM EDT 03/13/2025 1:10 PM EDT Kusum Barrera DO LAB MICROBIOLOGY - GENERAL ORD ERABLES Final Result Performing Organization Address [facility] [place] [address] * SARS CoV-2/COVID-19 by PCR (03/13/2025 12:45 PM EDT) [facility] SARS CoV-2/COVID-1 9 RNA PCR Result Not Detected Not Detected 03/13/2025 2:00 PM EDT [facility] Swab Nasopharyngeal structure / Unknown Non-blood Collection / Unknown 03/13/2025 12:45 PM EDT 03/13/2025 1:10 PM EDT Narrative [facility] - 03/13/2025 2:00 PM EDT This test [...] MICROBIOLOGY - GENERAL ORD ERABLES Final Result [facility] [address] [place] [address] * Nasopharyngeal Respiratory Panel (03/13/2025 12:45 PM EDT) Only the most recent of2 resultswithin the time period is included. Nasopharyngeal Respiratory PCR Interpretation Not Detected for all analytes Not Detected for all analytes 03/13/2025 3:05 PM EDT [facility] Swab Nasopharyngeal structure / Unknown Non-blood Collection / Unknown 03/13/2025 12:45 PM EDT 03/13/2025 1:10 PM EDT Narrative [facility] - 03/13/2025 3:05 PM EDT [...] Respiratory PCR Panel is performed using the Weixinhaile[employer] instrument. This test is FDA approved for use with Nasopharyngeal swabs only. This test is used for clinical purposes. It should not be regarded as investigational or for research. [facility] Clinical Microbiology Laboratory is certified under the Clinical Laboratory Improvement Amendments of 1988 (CLIA-88) as qualified to perform high complexity clinical laboratory testing. Kusum Barrera DO LAB MICROBIOLOGY - GENERAL ORD ERABLES Final Result Performing Organization Address City/[facility]/ZIP Co de Phone Number [facility] [address] [place] [address] * Influenza A,B & Respiratory Syncytial Virus by PCR (03/13/2025 12:45 PM EDT) Influenza A Virus PCR Result Not Detected Not Detected 03/14/2025 10:06 AM EDT [facility] Influenza B Virus PCR Result Not Detected Not Detected 03/14/2025 10:06 AM EDT [facility] Respiratory Syncytial Virus (RSV) PCR Result Not Detected Not Detected 03/14/2025 10:06 AM EDT [facility] Swab Nasopharyngeal structure / Unknown Non-blood Collection / Unknown 03/13/2025 12:45 PM EDT 03/13/2025 1:10 PM EDT Kusum Barrera DO LAB MICROBIOLOGY - GENERAL ORD ERABLES Final Result Performing Organization Address [facility] Co de Phone Number [facility] [address] [place] [address] * Blood Culture (Aerobic/Anaerobet Set) (03/12/2025 11:44 PM EDT) Only the most recent of3 resultswithin the time period is included. [facility] Culture No growth at day 5 DAVID 03/18/2025 3:01 AM EDT [facility] Blood Structure of right hand / Unknown Venipuncture / Unknown 03/12/2025 11:44 PM EDT 03/13/2025 1:58 AM EDT Spring Stewart MD LAB MICROBIOLOGY - GENERAL ORDER HUMERA Final Result Performing Organization Address City/[facility]/[place] [address] * Cortisol (03/12/2025 5:14 PM EDT) Cortisol 16.50 Before 10am: 3.7 - 19.4. After 5pm: 2.9 - 17.3 ug/dL 03/12/2025 6:35 PM EDT [facility] Comment:Testing performed on [employer], standardized against HALF-WAY Reference Standard concentration values assigned by LC-MS/MS and verified by BCR 192 and BCR 193 certified reference materials. Blood Venous blood specimen / Unknown Venipuncture / Unknown 03/12/2025 5:14 PM EDT 03/12/2025 5:18 PM EDT us Kusum Barrera DO LAB REF LAB BLOOD AND FLUID OR D Final Result [facility] [address] [place] [address] * US Abdomen Doppler Limited (03/12/2025 3:51 [...] on 03/12/2025 3:55 PM Kusum Barrera DO IMG US PROCEDURES Final Result * Lactate, venous (03/11/2025 5:06 PM EDT) Only the most recent of4 resultswithin the time period is included. [facility] Lactate, Venous, Whole Blood 1.3 0.5 - 2.2 mmol/L LAB HEMATOLOGY METHOD 03/11/2025 5:20 PM EDT [facility] Blood Venous blood specimen / Unknown Venipuncture / Unknown 03/11/2025 5:06 PM EDT 03/11/2025 5:17 PM EDT Kusum Barrera DO LAB BLOOD ORDERABLES Final Res ult [facility] [address] [place] [address] * Light Green Top (03/11/2025 3:32 AM EDT) Only the most recent of2 resultswithin the time period is included. [facility] Extra Hold for add-ons 03/11/2025 6:34 AM EDT [facility] Comment:Auto resulted. Blood Venous blood specimen / Unknown 03/11/2025 3:32 AM EDT 03/11/2025 4:24 AM EDT us Kusum Kamara Bruce DO LAB BLOOD ORDERABLES Final Res ult [facility] [address] [place] [address] * FL Modified Barium Swallow (03/10/2025 10:50 [...] Result * Morphology (03/10/2025 3:39 AM EDT) Only the most recent of3 resultswithin the time period is included. Elliptocytes/O valocytes Present LAB HEMATOLOGY METHOD 03/10/2025 5:52 AM EDT [facility] RBC Morphology Slide Reviewed LAB HEMATOLOGY METHOD 03/10/2025 5:52 AM EDT [facility] Platelet Estimate Platelet smear estimate consistent with automated count LAB HEMATOLOGY METHOD 03/10/2025 5:52 AM EDT [facility] Blood Venous blood specimen / Unknown Venipuncture / Unknown 03/10/2025 3:39 AM EDT 03/10/2025 3:44 AM EDT Kusum Barrera DO LAB BLOOD ORDERABLES Final Res ult [facility] [address] [place] [address] * (ABNORMAL) Manual Differential (03/10/2025 3:39 AM EDT) Only the most recent of3 resultswithin the time period is included. Blasts % 0 % LAB HEMATOLOGY METHOD 03/10/2025 5:52 AM EDT [facility] Promyelocytes % 0 % LAB HEMATOLOGY METHOD 03/10/2025 5:52 AM EDT [facility] Myelocytes % 0 % LAB HEMATOLOGY METHOD 03/10/2025 5:52 AM EDT [facility] Metamyelocytes % 4 % LAB HEMATOLOGY METHOD 03/10/2025 5:52 AM EDT [facility] Neutrophils % 60 % LAB HEMATOLOGY METHOD 03/10/2025 5:52 AM EDT [facility] Lymphocytes % 34 % LAB HEMATOLOGY METHOD 03/10/2025 5:52 AM EDT [facility] Reactive Lymphocytes % 0 % LAB HEMATOLOGY METHOD 03/10/2025 5:52 AM EDT [facility] Monocytes % 0 % LAB HEMATOLOGY METHOD 03/10/2025 5:52 AM EDT [facility] Eosinophils % 2 % LAB HEMATOLOGY METHOD 03/10/2025 5:52 AM EDT [facility] Basophils % 0 % LAB HEMATOLOGY METHOD 03/10/2025 5:52 AM EDT [facility] Blasts Absolute 0.00 10*3/UL LAB HEMATOLOGY METHOD 03/10/2025 5:[address] [facility] Promyelocytes Absolute 0.00 10*3/uL LAB HEMATOLOGY METHOD 03/10/2025 5:52 AM EDT [facility] Myelocytes Absolute 0.00 10*3/uL LAB HEMATOLOGY METHOD 03/10/2025 5:[address] [facility] Metamyelocytes Absolute 0.03 10*3/uL LAB HEMATOLOGY METHOD 03/10/2025 5:52 AM EDT [facility] Neutrophils Absolute 0.50(LL) 1.60 - 6.10 10*3/uL LAB HEMATOLOGY METHOD 03/10/2025 5:52 AM EDT [facility] Lymphocytes Absolute 0.29(L) 1.20 - 3.90 10*3/uL LAB HEMATOLOGY METHOD 03/10/2025 5:52 AM EDT [facility] Reactive Lymphocytes Absolute 0.00 10*3/uL LAB HEMATOLOGY METHOD 03/10/2025 5:52 AM EDT [facility] Monocytes Absolute 0.00(L) 0.30 - 0.90 10*3/uL LAB HEMATOLOGY METHOD 03/10/2025 5:52 AM EDT [facility] Eosinophils Absolute 0.02 0.00 - 0.50 10*3/uL LAB HEMATOLOGY METHOD 03/10/2025 5:52 AM EDT [facility] Basophils Absolute 0.00 0.00 - 0.10 10*3/uL LAB HEMATOLOGY METHOD 03/10/2025 5:52 AM EDT [facility] Blood Venous blood specimen / Unknown Venipuncture / Unknown 03/10/2025 3:39 AM EDT 03/10/2025 3:44 AM EDT Kusum Barrera DO LAB BLOOD ORDERABLES Final Res ult [facility] [address] [place] [address] * Transfuse RBC (03/09/2025 11:15 AM EDT) Only the most recent of3 resultswithin the time period is included. Result [facility] Hyacinth Hansen DO BLOOD TRANSFUSION ORDERA BLES Final [...] IV THERAPY ORDERABLES Final Re sult * Prepare Leukocyte Reduced RBC: 1 Units (03/09/2025 6:51 AM EDT) Only the most recent of3 resultswithin the time period is included. Product Code [id number] BLOO D BANK Dispense Status Transfused BLOOD BANK Blood Expiration Date [id number] BLOOD BANK Unit Number [id number] CH B LOOD BANK Product Blood Type 6200 BLOOD BANK Blood Type A+ BLOOD BANK Crossmatch Compatible BLOOD BANK Other [facility] BLOOD BANK PRODUCT ORDER HUMERA Final Result Performing Organization Address [facility] de Phone Number BLOOD BANK [address] [place] [address] * Methicillin Resistant Staphylococcus aureus (MRSA) by PCR (03/09/2025 5:11 AM EDT) Methicillin Resistant Staphylococcus aureus (MRSA) by PCR Not Detected Not Detected 03/09/2025 7:56 AM EDT [facility] Swab Both anterior nares / Unknown Non-blood Collection / Unknown 03/09/2025 5:11 AM EDT 03/09/2025 6:26 AM EDT Narrative [facility] - 03/09/2025 7:56 AM EDT This test is FDA approved for use with nares swab specimens using the eSwabs. This test is used for clinical purposes. It should not be regarded as investigational or for research. This laboratory is certified under the Clinical Laboratory improvement Amendments of 1988 (CLIA-88 as qualified to perform high complexity clinical laboratory testing. [facility] LAB MICROBIOLOGY - GENER AL ORDERABLES Final Result Performing Organization Address [facility] de Phone Number [facility] [address] [place] [address] * CT Angio Pulmonary Embolism (03/08/2025 11:28 [...] Per this written report. Drafted by Radha Alejadnro MD on 03/09/2025 12:01 AM Final report signed by Radha Alejandro MD on 03/09/2025 12:05 AM Hyacinth Hansen IMG CT PROCEDURES Final Result * (ABNORMAL) Streptococcus pneumoniae and Legionella Urinary Antigen (03/08/2025 9:35 PM EDT) Legionella pneumophila serogroup 1 Antigen Result (Urine) Negative Negative 03/09/2025 7:28 AM EDT [facility] Streptococcus pneumoniae Antigen Result (Urine) Positive(A) Negative 03/09/2025 7:28 AM EDT [facility] Urine Urine specimen obtained by clean catch procedure / Unknown Non-blood Collection / Unknown 03/08/2025 9:35 PM EDT 03/08/2025 9:55 PM EDT [facility] LAB MICROBIOLOGY - GENER AL ORDERABLES Final Result [facility] [address] [place] [address] * Urine Uribe Panel (03/08/2025 9:35 PM EDT) Extra Reflex urine culture not indicated 03/08/2025 11:02 PM EDT [facility] Urine Urine specimen obtained by clean catch procedure / Unknown Non-blood Collection / Unknown 03/08/2025 9:35 PM EDT 03/08/2025 9:53 PM EDT Hyacinth Hansen DO LAB URINE ORDERABLES Fin al Result [facility] [address] [place] [address] * Urinalysis Microscopic Examination (03/08/2025 9:35 PM EDT) Urine Urine specimen obtained by clean catch procedure / Unknown Non-blood Collection / Unknown 03/08/2025 9:35 PM EDT 03/08/2025 9:53 PM EDT Hyacinth Hansen DO LAB URINE ORDERABLES [place] al Result Performing Organization Address City/[facility]/ZIP Co de Phone Number [facility] [address] [place] [address] * (ABNORMAL) Urinalysis with reflex microscopic (Culture NOT Included) (03/08/2025 9:35 PM EDT) Color, Urine Yellow LAB URINALYSIS - AUTOMATED METHOD 03/08/2025 10:07 PM EDT [facility] Clarity, Urine Clear LAB URINALYSIS - AUTOMATED METHOD 03/08/2025 10:07 PM EDT [facility] Spec [place], Urine >1.030(H) 1.005 - 1.030 LAB URINALYSIS - AUTOMATED METHOD 03/08/2025 10:07 PM EDT [facility] pH, Urine 6.5 5.0 - 8.0 LAB URINALYSIS - AUTOMATED METHOD 03/08/2025 10:07 PM EDT [facility] Protein, Urine 30(A) Negative mg/dL LAB URINALYSIS - AUTOMATED METHOD 03/08/2025 10:07 PM EDT [facility] Glucose, Urine 250(A) Negative mg/dL LAB URINALYSIS - AUTOMATED METHOD 03/08/2025 10:07 PM EDT [facility] Ketones, Urine Negative Negative mg/dL LAB URINALYSIS - AUTOMATED METHOD 03/08/2025 10:07 PM EDT [facility] Blood, Urine Trace(A) Negative LAB URINALYSIS - AUTOMATED METHOD 03/08/2025 10:07 PM EDT [facility] Bilirubin, Urine Negative Negative LAB URINALYSIS - AUTOMATED METHOD 03/08/2025 10:07 PM EDT [facility] Urobilinogen, Urine 1.0 0.2 to 1.0 mg/dL LAB URINALYSIS - AUTOMATED METHOD 03/08/2025 10:07 PM EDT [facility] Leukocytes, Urine Negative Negative LAB URINALYSIS - AUTOMATED METHOD 03/08/2025 10:07 PM EDT [facility] Nitrite, Urine Negative Negative LAB URINALYSIS - AUTOMATED METHOD 03/08/2025 10:07 PM EDT [facility] RBC, Urine 4 - 10(A) 0 to 3 /HPF LAB URINALYSIS - AUTOMATED METHOD 03/08/2025 10:07 PM EDT [facility] WBC, Urine 0 - 5 0 to 5 /HPF LAB URINALYSIS - AUTOMATED METHOD 03/08/2025 10:07 PM EDT [facility] Squamous Epithelial Cells 0 - 2 0 to 5 /HPF LAB URINALYSIS - AUTOMATED METHOD 03/08/2025 10:07 PM EDT [facility] Hyaline Casts 0 - 2 0 to 5 /LPF LAB URINALYSIS - AUTOMATED METHOD 03/08/2025 10:07 PM EDT [facility] Bacteria, Urine Negative Negative LAB URINALYSIS - AUTOMATED METHOD 03/08/2025 10:07 PM EDT [facility] Urine Urine specimen obtained by clean catch procedure / Unknown Non-blood Collection / Unknown 03/08/2025 9:35 PM EDT 03/08/2025 9:53 PM EDT us Hyacinth Hansen DO LAB URINE ORDERABLES Fin al Result [facility] [address] [place] [address] * EKG now - STAT (adult) (03/08/2025 5:31 PM EDT) EKG DIAGNOSIS CLASS Borderline Normal MUSE ECG Ventricular Rate 104 BPM MUSE ECG Atrial Rate 104 BPM MUSE ECG SD Interval 144 ms MUSE ECG QRSD Interval 102 ms MUSE ECG QT Interval 354 ms MUSE ECG QTC Interval 465 ms MUSE ECG R [place] 82 degrees MUSE ECG T Wave [place] 66 degrees MUSE ECG Diagnosis Sinus tachycardia MUSE ECG Diagnosis Otherwise normal ECG MUSE ECG Diagnosis MUSE ECG Diagnosis Confirmed by Myles Manley ([id number]) on 03/08/2025 6:58:57 PM MUSE ECG 03/08/2025 5:31 PM EDT 03/08/2025 6:58 PM EDT Kayleigh Carter MD ECG ORDERABLES Final Result MUSE ECG * ED HIV 1/2 Antibody/Antigen Screen w/Reflex to HIV 1/2 Differentiation (03/08/2025 5:26 PM EDT) [facility] HIV 1 & 2 Antibody/Antigen Screen Non Reactive Non Reactive 03/08/2025 6:15 PM EDT [facility] Comment:Screening for HIV 1 & 2 antibodies, and P24 antigen is NONREACTIVE. No confirmatory testing is required. Blood Venous blood specimen / Unknown Venipuncture / Unknown 03/08/2025 5:26 PM EDT 03/08/2025 5:35 PM EDT Result [facility] Kayleigh Carter MD LAB BLOOD ORDERABLES Final Resu lt Performing Organization Address [facility]/ZIP Co de Phone Number [facility] [address] [place] [address] * Hepatitis C Antibody - ED (03/08/2025 5:26 PM EDT) [facility] Hepatitis C Antibody Negative Negative 03/08/2025 6:13 PM EDT [facility] Blood Venous blood specimen / Unknown Venipuncture / Unknown 03/08/2025 5:26 PM EDT 03/08/2025 5:34 PM EDT Result [facility] Kayleigh Carter MD LAB BLOOD ORDERABLES Final Resu lt [facility] [address] [place] [address] * PT-INR (03/08/2025 5:26 PM EDT) Prothrombin Time 14.3 12.0 - 14.3 sec 03/08/2025 5:47 PM EDT [facility] INR 1.1 0.9 - 1.1 03/08/2025 5:47 PM EDT [facility] Blood Venous blood specimen / Unknown Venipuncture / Unknown 03/08/2025 5:26 PM EDT 03/08/2025 5:30 PM EDT Narrative [facility] - 03/08/2025 5:47 PM EDT OPTIMAL INR RANGES FOR PATIENT ON ORAL ANTICOAGULANT THERAPY Prevention of venous thromboembolism INR 2.0 to 3.0 In patients with heart disease: Atrial fibrillation INR 2.0 to 3.0 Valvular heart disease INR 2.0 to 3.0 Tissue heart valves INR 2.0 to 3.0 Mechanical prosthetic valves INR 2.5 to 3.5 Prevention of recurrent GA INR 2.5 to 3.5 Kayleigh Carter MD LAB BLOOD ORDERABLES Final Resu lt [facility] [address] [place] [address] * CT OUTSIDE IMAGES (03/08/2025 2:29 PM EDT) Only the most recent of2 resultswithin the time period is included. Anatomical Region Laterality Modality Computed Tomogra phy 03/08/2025 2:29 PM EDT us External Provider IMG CT PROCEDURES Final Result * XR OUTSIDE IMAGES (03/08/2025 1:24 PM EDT) Anatomical Region Laterality Modality Radiographic Fabiana ging 03/08/2025 1:24 PM EDT us External Provider IMG XR PROCEDURES Final Result * TSH reflex FT4 (03/02/2025 9:07 AM EDT) Only the most recent of2 resultswithin the time period is included. Thyroid Stimulating Hormone, Plasma 1.63 0.40 - 4.20 uIU/mL 03/02/2025 9:56 AM EDT [facility] Blood Venous blood specimen / Unknown Venipuncture / Unknown 03/02/2025 9:07 AM EDT 03/02/2025 9:20 AM EDT Maninder Zhang MD LAB BLOOD ORDERABLES Final Resul t [facility] [address] [place] [address] * CT THORACIC OUTSIDE IMAGES (02/15/2025 8:54 [...] 12:17 PM EDT) Case Report Cytology Case: [id number] Authorizing Provider: Maninder Zhang MD Collected: 02/09/2025 1217 Ordering Location: [facility] Head, Neck & Received: 02/09/2025 1217 Respiratory Pathologist: Margie Garcia MD Specimen: Other, Fine Needle Aspiration (Specify Site), LEFT CHEST NODULE, SUPERFICIAL FINE NEEDLE ASPIRATION 02/11/2025 9:54 AM EDT [facility] Final Diagnosis CHEST NODULE, LEFT, SUPERFICIAL FINE NEEDLE ASPIRATION: - SUSPICIOUS FOR MALIGNANCY. SEE COMMENT. 02/11/2025 9:54 AM EDT [facility] at 0953 EDT Comment There are several atypical and degenerated squamous cells present, which are suspicious for squamous cell carcinoma. However, in the setting of a cystic lesion (with approximately 4 ml of straw-colored fluid obtained), the epithelial atypia could be reactive/degener ative, rather than neoplastic. 02/11/2025 9:54 AM EDT [facility] Immediate Evaluation FNA performed [...] on the report. 02/11/2025 9:54 AM EDT [facility] Clinical History squamous cell lung cancer 02/11/2025 9:54 AM EDT [facility] Procedure Type Superficial 9:54 AM EDT [facility] Size/Descripti on of Lesion Left Chest 02/11/2025 9:54 AM EDT [facility] Cancer History Yes 02/11/2025 9:54 AM EDT [facility] Gross Description A. LEFT CHEST NODULE, SUPERFICIAL FINE NEEDLE ASPIRATION 5 ml's tinted needle rinse fluid processed as Thinprep for complete evaluation of sample. Received 3 diff quick slides and 3 pap slides. 02/11/2025 9:54 AM EDT [facility] Note: A resident was involved in the service. I attest I examined the relevant preparations for the specimens and confirmed the diagnosis or interpretation. 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 lung (CMS/HCC) [ICD-10-CM] 02/11/2025 9:54 AM EDT [facility] Fine Needle Aspirate Fine needle biopsy / Unknown Non-blood Collection / Unknown 02/09/2025 12:17 PM EDT 02/09/2025 12:17 PM EDT us Maninder Zhang MD LAB CYTOLOGY ORDERABLES Final Re sult [facility] [address] [place] [address] * (ABNORMAL) Hemoglobin A1c (01/19/2025 8:58 AM EDT) Hemoglobin A1c 6.6(H) <5.7 % 01/19/2025 10:31 AM EDT [facility] Blood Venous blood specimen / Unknown Venipuncture / Unknown 01/19/2025 8:58 AM EDT 01/19/2025 9:35 AM EDT Narrative [facility] - 01/19/2025 10:31 AM EDT HA1C Interpretive Data: Diagnosis of Diabetes: Diabetic > or = 6.5% Pre-diabetic 5.7 to 6.4% Non-diabetic < or = 5.6% Glycemic Targets for Type I and Type II Diabetics: Non- Adults <7.0% Adults <6.0% Children and Adolescents <7.5% Source: [employer]. Standards of medical care in diabetes,2017. Diabetes Care.2017:40 (suppl 1):S1-S135. us Maninder Zhang MD LAB BLOOD ORDERABLES Final Resul t [facility] [address] [place] [address] * CT Chest w IV Contrast (01/10/2025 [...] ARIA RADIATION ONCOLOGY 12/28/2024 3:28 PM EDT us Physician Radiation Oncology RADIATION ONCOLO GY ORDERABLES [...] [facility]A RADIATION ONCOLOGY 12/28/2024 3:00 PM EDT us Physician Radiation Oncology RADIATION ONCOLO GY ORDERABLES [...] 12/23/2024 2:54 PM EDT Physician Radiation Oncology MD RADIATION [...] 2:55 PM EDT Physician Radiation Oncology RADIATION ONCOLO [...] 2024 3:07 PM EDT Physician Radiation Oncology RADIATION ONCMELANY [...] RADIATION ONCOLOGY from Last 3 Months Insurance [facility] Advance Directives * DNR/DNI (Latest Code Status on File) Date Activated Date Inactivated Comments 03/16/2025 1:17 PM 03/16/2025 6:54 PM Question Answer Comments DNR determined on/before admission date? No I have reviewed the capacity from the link above and, if needed, have updated to appropriate status: Yes * Full Code Date Activated Date Inactivated Comments 03/08/2025 8:41 PM 03/16/2025 1:17 PM Question Answer Comments I have reviewed the capacity from the link above and, if needed, have updated to appropriate status: Yes Care Teams Home Health Clinical Supervisor Relationship Specialty Start Date End Date Constantine Stiles APRN [address] [place] [address] PCP - General 01/21/23 Farhat Gómez MD [address] [place] [address] [address] [place] [address] Consulting Physician Radiation Oncology 10/27/24 Alanis Lebron LPN [facility] TCM Nurse 03/17/25
--- OUTSIDE RECORDS SUMMARY | 2025-03-18 23:07 | XMS_ITS | Encounter Summary ---
Author Organization Healthcare Address [address] [place] [address] Care Team Providers Care House Worker Name Role Phone Constantine Stiles APRN Primary Care Provider [phone] Farhat Gómez MD Unavailable Encounter Details Date Type Department Care Team (Late st Contact Info) Description 03/08/2025 Orders Only External Location [address] [place] [address] Provider, External Social History Tobacco Use Types [...] any time in the past 12 m [facility], were you homeless or living [...] drink first t ashanti in the morning (EYE-TURBO OPERATOR) to steady your nerves or to get [...] No 03/14/2025 8:00 AM EDT Nena Eduardo, RN 2. Non-Specific Active Suicidal Thoughts (Past 1 Month) No 03/14/2025 8:00 AM EDT Nena Eduardo, DONNA 6. Suicidal Behavior (Lifetime) No 03/14/2025 8:00 AM EDT Nena Eduardo, DONNA documented as of this encounter Plan of Treatment Upcoming Encounters Date Type Department Care Team ([facility] st Contact Info) Description 03/23/2025 10:30 AM EDT Clinical Support [facility] 800 [facility], [address]nd [place] [address] 03/23/2025 11:00 AM EDT Office Visit Pav [facility] Respiratory 800 [facility], [address] [place] [address] Maninder Zhang MD 800 [facility] [address] [place] [address] 03/23/2025 12:00 PM EDT Appointment [facility] Infusion [address] [place] [address] documented as of this encounter Procedures Procedure Name Priority Date/Time Associated Diagnosis Comments XR OUTSIDE IMAGES 03/08/2025 1:24 PM EDT documented in this encounter Results * XR OUTSIDE IMAGES (03/08/2025 1:24 PM EDT) Anatomical Region Laterality Modality Radiographic Fabiana ging 03/08/2025 1:24 PM EDT us External Provider IMG XR PROCEDURES Final Result documented in this encounter [...] documented as of this encounter Care Teams House Worker Relationship Specialty Start Date End Date Constantine Stiles APRN [address] [place] [address] PCP - General 01/21/23 Farhat Gómez MD [address] [place] [address] Consulting Physician Radiation Oncology 10/27/24 documented as of this encounter
--- OUTSIDE RECORDS SUMMARY | 2025-03-18 23:07 | XMS_ITS | Encounter Summary ---
Author Organization Healthcare Address [address] [place] [address] Care Team Providers Care Critical Care Physician Name Role Phone Constantine Stiles APRN Primary Care Provider [phone] Farhat Gómez MD Unavailable Encounter Details Date Type Department Care Team (Latest Contact Info) Description 03/08/2025 Travel Social History Tobacco Use Types Packs/Day [...] any time in the past 12 m [facility], were you homeless or living in a [...] drink first t ashanti in the morning (EYE-CREATIVE CONSULTANT) to steady your nerves or to get [...] Date of Assessment Author No Risk Indicated 03/08/2025 5:40 PM EDT Samreen Mullins RN * Question Answer Date of Assessment Author 1. Wish to be (Past 1 Month) No 03/08/2025 5:40 PM EDT Samreen Mullins RN 2. Non-Specific Active Suici ester Thoughts (Past 1 Month) No 03/08/2025 5:40 PM EDT Rosy Mullins RN 6. Suicidal Behavior (Lifetime) No 5:40 PM EDT Samreen Mullins RN documented as of this encounter Plan of Treatment Upcoming Encounters Date Type Department Care Team ([facility] st Contact Info) Description 03/23/2025 10:30 AM EDT Clinical Support Pav [facility] Head[facility] Neck & Respiratory 800 [facility], 2nd [place] [address] 03/23/2025 11:00 AM EDT Office Visit Pav [facility] Head[facility] Neck & Respiratory 800 [facility], [address] [place] [address] Maninder Zhang MD 800 [facility] Shannan Dubois [facility] [address] [place] [address] 03/23/2025 12:00 PM EDT Appointment [facility] Infusion [address] [place] [address] documented as of this encounter Visit Diagnoses Not on filedocumented in this encounter Additional Health Concerns Infection Onset Date Last Indicated Resolved Time Respiratory Rule-Out 03/08/2025 03/09/2025 025 8:29 AM EDT Assessment Noted Time A fall risk assessment has been complete d for the patient 03/02/2025 10:44 AM EDT A Body Mass Index follow-up plan has been documented for the patient 03/16/2025 4:08 PM EDT documented as of this encounter Care Teams Critical Care Physician Relationship Specialty Start Date End Date Constantine Stiles APRN [address] [place] [address] PCP - General 01/21/23 Farhat Gómez MD 800 [facility] [address] [place] [address] Consulting Physician Radiation Oncology 10/27/24 documented as of this encounter
--- OUTSIDE RECORDS SUMMARY | 2025-03-18 23:07 | XMS_ITS | Encounter Summary ---
Author Organization Healthcare Address [address] [place] [address] Care Team Providers Care Film Mounter Name Role Phone Constantine Stiles APRN Primary Care Provider [phone] Farhat Gómez MD Unavailable Encounter Details Date Type Department Care Team (Latest Contact Info) Description 03/14/2025 Travel Social History Tobacco Use Types Packs/Day [...] any time in the past 12 m [facility], were you homeless or living in a senior living (including now)? No 03/09/2025 CAGE ASSESSMENT Answer [...] drink first t ashanti in the morning (EYE-OYSTER SHIPPER) to steady your nerves or to get [...] Assessment Author No Risk Indicated 03/14/2025 8:00 PM EDT Malaika Eden RN * Question Answer Date of Assessment Author 1. Wish to be (Past 1 Month) No 025 8:00 PM EDT Malaika Eden RN 2. Non-Specific Active Suici ester Thoughts (Past 1 Month) No 03/14/2025 8:00 PM EDT Malaika Eden RN 6. Suicidal Behavior (Lifetime) No 8:00 PM EDT Malaika Eden RN documented as of this encounter Plan of Treatment Upcoming Encounters Date Type Department Care Team ([facility] st Contact Info) Description 03/23/2025 10:30 AM EDT Clinical Support Pav [facility] Head[facility] Neck & Respiratory 800 [facility], [address]nd [place] [address] 03/23/2025 11:00 AM EDT Office Visit Pav CC Head[facility] Neck & Respiratory 800 [facility], [address]nd [place] [address] Maninder Zhang MD 800 [facility] Silvino [facility] [address] [place] [address] 03/23/2025 12:00 PM EDT Appointment [facility] Infusion [address] [place] [address] documented as of this encounter Visit Diagnoses Not on filedocumented in this encounter Additional Health Concerns Assessment Noted Time A fall risk assessment has been complete d for the patient 03/02/2025 10:44 AM EDT A Body Mass Index follow-up plan has been documented for the patient 03/16/2025 4:08 PM EDT documented as of this encounter Care Teams Film Mounter Relationship Specialty Start Date End Date Constantine Stiles APRN [address] [place], [place] [id number] PCP - General 01/21/23 Farhat Gómez MD 800 [facility] [address] [place] [address] Consulting Physician Radiation Oncology 2/12/25 documented as of this encounter
--- OUTSIDE RECORDS SUMMARY | 2025-03-18 23:07 | XMS_ITS | Encounter Summary ---
Author Organization Healthcare Address [address] [place] [address] Care Team Providers Care Hiv Prevention Specialist Name Role Phone Constantine Stiles APRN Primary Care Provider [phone] Farhat Gómez MD Unavailable Encounter Details Date Type Department Care Team (Late st Contact Info) Description 03/08/2025 Orders Only External Location [address] [place] [address] Provider, External Social History Tobacco Use Types [...] any time in the past 12 m [facility], were you homeless or living in [...] drink first t ashanti in the morning (EYE-DROP MACHINE OPERATOR) to steady your nerves or to [...] Upcoming Encounters Date Type Department Care Team ([facility] st Contact Info) Description 03/23/2025 10:30 AM EDT Clinical Support Pav [facility] Head[facility] Neck & Respiratory 800 [facility], 2nd [place] [address] 03/23/2025 11:00 AM EDT Office Visit Pav CC Head[facility] Neck & Respiratory 800 [facility], [address] [place] [address] Maninder Zhang MD 800 [facility] Shannan Silvino [facility] [address] [place] [address] 03/23/2025 12:00 PM EDT Appointment [facility] Infusion [address] [place] [address] documented as of this encounter Procedures Procedure [...] documented as of this encounter Care Teams Hiv Prevention Specialist Relationship Specialty Start Date End Date Constantine Stiles APRN [address] [place] [address] PCP - General 01/21/23 Farhat Gómez MD [address] [place] [address] Consulting Physician Radiation Oncology 10/27/24 documented as of this encounter
--- OUTSIDE RECORDS SUMMARY | 2025-03-18 23:07 | XMS_ITS | Encounter Summary ---
Author Organization Healthcare Address [address] [place] [address] Care Team Providers Care Bobbin Trucker Name Role Phone Constantine Stiles APRN Primary Care Provider [phone] Farhat Gómez MD Unavailable Encounter Details Date [...] Pav [facility] Head[facility] Neck [facility] Respiratory 800 [facility], [address] [place] [address] 03/23/2025 11:00 AM EDT Office Visit Pav [facility] Head[facility] Neck [facility] Respiratory 800 [facility], [address] [place] [address] Maninder Zhang MD 800 [facility] [address] [place] [address] 03/23/2025 12:00 PM EDT Appointment [facility] Infusion [address] [place] [address] documented as of this encounter Visit Diagnoses Not on filedocumented in this encounter Additional Health Concerns Assessment Noted Time A fall risk assessment has been complete d for the patient 01/19/2025 9:13 AM EDT A Body Mass Index follow-up plan has been documented for the patient 01/19/2025 4:11 PM EDT documented as of this encounter Care Teams Bobbin Trucker Relationship Specialty Start Date End Date Constantine Stiles APRN [address] [place] [address] PCP - General 01/21/23 Farhat Gómez MD [address] [facility] [address] [place] [address] Consulting Physician Radiation Oncology 10/27/24 documented as of this encounter
--- OUTSIDE RECORDS SUMMARY | 2025-03-18 23:07 | XMS_ITS | Referral Summary ---
Author Organization [employer] ([place], [place], [place], [place]) Address [address] [place] [address] Care Team Providers Care Director Of Curriculum Name Role Phone Unavailable Primary Care Provider [...] Date Doug rded Speak language other than Australian at home Not on file 01/19/2024 Want [...]
--- OUTSIDE RECORDS SUMMARY | 2025-03-18 23:07 | XMS_ITS | Encounter Summary ---
Author Organization Healthcare Address [address] [place] [address] Care Team Providers Care Pipeline Systems Operator Name Role Phone Constantine Stiles APRN Primary Care Provider [phone] Lars Dalton MD Unavailable Farhat Gómez MD Unavailable Alanis Lebron LPN Unavailable Unavailabl e Encounter Details Date Type Department Care Team (Late Contact Info) Description 06/28/2024 Orders Only External Location [address] [place] [address] Provider, External Social History Tobacco Use Types [...] Pav [facility] Head[facility] Neck [facility] Respiratory 800 [facility], [address]nd [place] [address] 03/23/2025 11:00 AM EDT Office Visit Pav [facility] Head[facility] Neck [facility] Respiratory 800 [facility], [address]nd [place] [address] Maninder Zhang MD [address] [place] [address] 03/23/2025 12:00 PM EDT Appointment [facility] Infusion [address] [place] [address] documented as of this encounter Procedures Procedure [...] documented as of this encounter Care Teams Pipeline Systems Operator Relationship Specialty Start Date End Date Constantine Stiles APRN [address] [place] [address] PCP - General 01/21/23 Lars Dalton MD [address] [place] [address] Consulting Physician Radiation Oncology 03/08/24 Farhat Gómez MD 800 [facility] [address] [place] [address] Consulting Physician Radiation Oncology 10/27/24 Alanis Lebron LPN [facility] TCM Nurse 03/17/25 documented as of this encounter
[2025-03-18 23:08] VITALS: BP 103/70; PULSE 97; RESP 18; TEMP 36.8; O2SAT 94
--- OUTSIDE RECORDS SUMMARY | 2025-03-18 23:08 | XMS_ITS | Encounter Summary ---
Author Organization Healthcare Address [address] [place] [address] Care Team Providers Care Academic Advisement Director Name Role Phone Constantine Stiles APRN Primary Care Provider [phone] Farhat Gómez MD Unavailable Encounter Details Date Type Department Care Team (Late Contact Info) Description 02/15/2025 Orders Only External Location [address] [place] [phone] Provider, External Social History Tobacco Use Types [...] Pav [facility] Head[facility] Neck & Respiratory 800 [facility], [address]nd [place] [address] 03/23/2025 11:00 AM EDT Office Visit Pav CC Head[facility] Neck & Respiratory 800 [facility], [address]nd [place] [address] Maninder Zhang MD 800 [facility] Shannan Dubois [facility] [address] [place] [address] 03/23/2025 12:00 PM EDT Appointment [facility] Infusion [address] [place] [address] documented as of this encounter Procedures Procedure [...] as of this encounter Care Teams Academic Advisement Director Relationship Specialty Start Date End Date Constantine Stiles APRN [address] [place] [address] PCP - General 01/21/23 Farhat Gómez MD [address] [place] [address] Consulting Physician Radiation Oncology 10/27/24 documented as of this encounter
--- OUTSIDE RECORDS SUMMARY | 2025-03-18 23:08 | XMS_ITS | Encounter Summary ---
Author Organization [facility] Address [address] 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 (CMS/HCC) Procedures CT Chest w IV Contrast Maninder Zhang MD [address] [place] [address] [address] Phone: tel: fax: Referral ID Status Reason Start Date Expiration Date V isits Requested Visits Authorized [id number] Authorized 02/10/2025 08/12/2026 1 1 * Imaging (Routine) - Authorized Specialty Diagnoses / Procedures Referred By Contac t Referred To Contact Radiology Diagnoses 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 (CMS/HCC) Procedures CT Abdomen Pelvis w IV Contrast Maninder Zhang MD [address] [place] [address] [address] Phone: tel: fax: Referral ID Status Reason Start Date Expiration Date V isits Requested Visits Authorized [id number] Authorized 02/10/2025 08/12/2026 1 1 Encounter Details Date Type Department Care Team (Late Contact Info) Description 02/10/2025 Orders Only Pav [facility] Respiratory [address] [address] Tiffany Rosario, RN Squamous cell carcinoma of [...] Pav [facility] Respiratory [address] [address] 03/23/2025 11:00 AM EDT Office Visit Pav [facility] Head[facility] Neck [facility] Respiratory [address] [address] Maninder Zhang MD 800 [facility] Shannan [facility] [address] [place] [address] 03/23/2025 12:00 PM EDT Appointment [facility] H Infusion [address] [place] [address] Scheduled Orders Name Type Priority Associated Diagnoses [...] documented as of this encounter Care Teams Water Ski Assembler Relationship Specialty Start Date End Date Constantine Stiles APRN [address] [place] [address] PCP - General 01/21/23 Farhat Gómez MD [address] [place], [place] [address]D [place] [address] Consulting Physician Radiation Oncology 10/27/24 documented as of this encounter
--- OUTSIDE RECORDS SUMMARY | 2025-03-18 23:08 | XMS_ITS | Encounter Summary ---
Author Organization [facility] Address [address] [place] [address] Care Team Providers Care Ekg Tech Name Role Phone Constantine Stiles APRN Primary Care Provider [phone] Farhat Gómez MD Unavailable Encounter Details Date Type Department Care Team ([facility] Contact Info) Description 02/09/2025 Telephone Pav [facility] Head[facility] Neck [facility] Respiratory [address] [place] [address] Tiffany Rosario RN Social History Tobacco Use Types Packs/Day [...] 800 [facility], [address]nd [place] [address] 03/23/2025 11:00 AM EDT Office Visit Pav CC Head[facility] Neck & Respiratory 800 [facility], [address]nd [place] [address] Maninder Zhang MD 800 [facility] Shannan Dubois [facility] [address] [place] [address] 03/23/2025 12:00 PM EDT Appointment [facility] Infusion [address] [place] [address] documented as of this encounter Visit Diagnoses Not on filedocumented in this encounter Additional Health Concerns Assessment Noted Time A fall risk assessment has been complete d for the patient 02/09/2025 1:33 PM EDT A Body Mass Index follow-up plan has been documented for the patient 01/19/2025 4:11 PM EDT documented as of this encounter Care Teams Ekg Tech Relationship Specialty Start Date End Date Constantine Stiles APRN [address] [place] [address] PCP - General 01/21/23 Farhat Gómez MD 800 [facility] [address] [place] [address] Consulting Physician Radiation Oncology 10/27/24 documented as of this encounter
--- OUTSIDE RECORDS SUMMARY | 2025-03-18 23:08 | XMS_ITS | Encounter Summary ---
Author Organization Healthcare Address [address] [place] [address] Care Team Providers Care Chief Lock Operator Name Role Phone Constantine Stiles APRN Primary Care Provider [phone] Farhat Gómez MD Unavailable Encounter Details Date [...] Pav [facility] Head[facility] Neck [facility] Respiratory 800 [facility], [address]nd [place] [address] 03/23/2025 11:00 AM EDT Office Visit Pav CC Head[facility] Neck & Respiratory 800 [facility], [address]nd [place] [address] Maninder Zhang MD 800 [facility] [address] [place] [address] 03/23/2025 12:00 PM EDT Appointment [facility] Infusion [address] [place] [address] documented as of this encounter Visit Diagnoses Not on filedocumented in this encounter Additional Health Concerns Assessment Noted Time A fall risk assessment has been complete d for the patient 03/02/2025 10:44 AM EDT A Body Mass Index follow-up plan has been documented for the patient 03/02/2025 6:30 PM EDT documented as of this encounter Care Teams Chief Lock Operator Relationship Specialty Start Date End Date Constantine Stiles, DAY CARE HOME MOTHER [address] [place] [address] PCP - General 01/21/23 Farhat Gómez MD 800 [facility] [address] [place] [address] Consulting Physician Radiation Oncology 10/27/24 documented as of this encounter
--- OUTSIDE RECORDS SUMMARY | 2025-03-18 23:08 | XMS_ITS | Encounter Summary ---
Author Organization Healthcare Address [address] [place] [address] Care Team Providers Care Appeals Writer Name Role Phone Constantine Stiles APRN Primary Care Provider [phone] Farhat Gómez MD Unavailable Encounter Details Date [...] Rader R documented as of this encounter Plan of Treatment Upcoming Encounters Date Type Department Care Team (Late Contact Info) Description 03/23/2025 10:30 AM EDT Clinical Support Pav [facility] [address] [facility], [address]nd [place] [address] 03/23/2025 11:00 AM EDT Office Visit Pav [facility] [address] [facility], [address]nd [place] [address] Maninder Zhang MD [address] [facility] Shannan Dubois [facility] [address] [place] [address] 03/23/2025 12:00 PM EDT Appointment PAV H Infusion 800 [place] [address] documented as of this encounter Visit Diagnoses Not on filedocumented in this encounter Additional Health Concerns Assessment Noted Time A fall risk assessment has been complete d for the patient 02/09/2025 1:33 PM EDT A Body Mass Index follow-up plan has been documented for the patient 01/19/2025 4:11 PM EDT documented as of this encounter Care Teams Appeals Writer Relationship Specialty Start Date End Date Constantine Stiles APRN [address] [place] [address] PCP - General 01/21/23 Farhat Gómez MD 800 [facility] [address] [place] [address] Consulting Physician Radiation Oncology 10/27/24 documented as of this encounter
--- OUTSIDE RECORDS SUMMARY | 2025-03-18 23:08 | XMS_ITS | Encounter Summary ---
Author Organization Healthcare Address [address] [place] [address] Care Team Providers Care Drug Safety Physician Name Role Phone Constantine Stiles APRN Primary Care Provider [phone] Farhat Gómez MD Unavailable Encounter Details Date Type Department Care Team (Late Contact Info) Description 02/15/2025 Orders Only External Location 800 [place] [id number] Provider, External Social History Tobacco Use Types [...] CC Head, Neck & Respiratory [address] [facility], 2nd [place] [address] 03/23/2025 11:00 AM EDT Office Visit Pav [facility] Head[facility] Neck [facility] Respiratory [address] [facility], 2nd [place] [address] Maninder Zhang MD [address] [facility] Shannan Dubois [facility] [address] [place] [address] 03/23/2025 12:00 PM EDT Appointment P[facility] H Infusion [address] [place] [address] documented as of this encounter Procedures Procedure [...] documented as of this encounter Care Teams Drug Safety Physician Relationship Specialty Start Date End Date Constantine Stiles APRN [address] [place] [address] PCP - General 01/21/23 Farhat Gómez MD [address] [place] [address] Consulting Physician Radiation Oncology 10/27/24 documented as of this encounter
--- OUTSIDE RECORDS SUMMARY | 2025-03-18 23:08 | XMS_ITS ---
Author Organization [facility] Address [address] [place] [address] Care Team Providers Care Stock Turner Name Role Phone Constantine Stiles APRN Primary Care Provider [phone] Farhat Gómez MD Unavailable Alanis Lebron LPN Unavailable Unavailabl e Active Problems Problem Noted Date Diagnosed Date [...] (Taxol) IVPB 500 mLpembrolizumab (Keytruda) CARBOplatin (Paraplatin) 700 mg in sodiu m chloride 0.9 % 500 mL chemo IVPBpembrolizumab (Keytruda) 200 mg in sodium chloride [...] Planned Lung/Media 11/17/2024 - 12/28/2024 200 cGy 6 ,000 cGy Reference Points Delivered Lung/Mediastinum [...] Lung/Media 11/09/2024 - 11/09/2024 180 cGy 0 / 1 1 80 cGy Reference Points Delivered Verification 11/09/2024 - 11/09/2024 0 cGy Verification1 11/09/2024 - 11/09/2024 0 cGy * Course C1 04/14/2024 - 04/14/2024 Treatment Period Fraction Dose Fractions Total Dose Plans Planned LeftLung SBRT 04/14/2024 - 04/14/2024 3,000 cGy 3,000 cGy Reference Points Delivered Left Lung SBRT 04/14/2024 - 04/14/2024 3,000 cGy Lifetime Dose Tracking * Chemical Lifetime Dose Automatic Entry Manual Entr y Fluoro Time 9.118 minutes 9.118 minutes 0 minutes Air Kerma 180.556 mGy 180.556 mGy 0 mGy Resolved Problems Problem Noted Date Diagnosed Date Resolved Date Dysphagia 06/19/2024 03/11/2025
--- OUTSIDE RECORDS SUMMARY | 2025-03-18 23:08 | XMS_ITS | Encounter Summary ---
Author Organization Healthcare Address [address] [place] [address] Care Team Providers Care Manager Data Name Role Phone Constantine Stiles APRN Primary Care Provider [phone] Farhat Gómez MD Unavailable Encounter Details Date Type Department Care Team (Late st Contact Info) Description 02/09/2025 Orders Only Pav [facility] Head[facility] Neck & Respiratory [address] [place] [phone] Maninder Zhang MD 800 [facility] [address] [place] [address] Malignant neoplasm of upper lobe [...] No Risk Indicated 02/09/2025 11:17 AM EDT Brainocencio er, [place] R * Question Answer Date of Assessment Author 1. Wish to be (Past 1 Month) No 025 11:17 AM EDT Rito Rader R 2. Non-Specific Active Suici ester Thoughts (Past 1 Month) No 02/09/2025 11:17 AM EDT Lawrence Rader R 6. Suicidal Behavior (Lifetime) No 11:17 AM EDT Rito Rader documented as of this encounter Plan of Treatment Upcoming Encounters Date Type Department Care Team (Late st Contact Info) Description 03/23/2025 10:30 AM EDT Clinical Support Pav [facility] Head[facility] Neck [facility] Respiratory [address] [place] [address] 03/23/2025 11:00 AM EDT Office Visit Pav [facility] Head[facility] Neck [facility] Respiratory [address] [place] [address] Maninder Zhang MD [address] Shannan Silvino [facility] [address] [place] [address] 03/23/2025 12:00 PM EDT Appointment P[facility] H Infusion [address] [place] [address] Scheduled Orders Name Type Priority Associated Diagnoses [...] - 4.20 uIU/mL 03/02/2025 9:56 AM EDT [facility] Blood Venous blood specimen / Unknown Venipuncture / Unknown 03/02/2025 9:07 AM EDT 03/02/2025 9:20 AM EDT Maninder Zhang MD LAB BLOOD ORDERABLES Final Resul t Performing Organization Address City/[facility]/ZIP Co de Phone Number [facility] [address] [place] [address] * Magnesium (03/02/2025 9:07 AM EDT) Magnesium, Plasma 1.9 1.9 - 2.4 mg/dL 03/02/2025 9:56 AM EDT [facility] Blood Venous blood specimen / Unknown Venipuncture / Unknown 03/02/2025 9:07 AM EDT 03/02/2025 9:20 AM EDT Maninder Zhang MD LAB BLOOD ORDERABLES Final Resul t Performing Organization Address [facility] Co de Phone Number [facility] [address] [place] [address] * (ABNORMAL) Comprehensive metabolic panel (03/02/2025 9:07 AM EDT) Glucose, Plasma 232(H) 74 - 99 mg/dL 03/02/2025 9:55 AM EDT [facility] BUN, Plasma 7(L) 8 - 23 mg/dL 03/02/2025 9:55 AM EDT [facility] Creatinine, Plasma 0.76 0.70 - 1.20 mg/dL 03/02/2025 9:55 AM EDT [facility] BUN/Creatinine Ratio 9 03/02/2025 9:55 AM EDT [facility] Sodium, Plasma 137 136 - 145 mmol/L 03/02/2025 9:55 AM EDT [facility] Potassium, Plasma 4.6 3.6 - 4.9 mmol/L 03/02/2025 9:55 AM EDT [facility] Chloride, Plasma 100 97 - 107 mmol/L 03/02/2025 9:55 AM EDT [facility] CO2, Plasma 23 22 - 29 mmol/L 03/02/2025 9:55 AM EDT [facility] Anion Gap 14 6 - 16 mmol/L 03/02/2025 9:55 AM EDT [facility] Total Calcium, Plasma 9.8 8.9 - 10.2 mg/dL 03/02/2025 9:55 AM EDT [facility] Total Protein 7.4 6.3 - 7.9 g/dL 03/02/2025 9:55 AM EDT [facility] Albumin, Plasma 3.3(L) 3.5 - 5.2 g/dL 03/02/2025 9:55 AM EDT [facility] AST, Plasma 25 10 - 50 U/L 03/02/2025 9:55 AM EDT [facility] ALT, Plasma 43 10 - 50 U/L 03/02/2025 9:55 AM EDT [facility] Alkaline Phosphatase, Plasma 205(H) 40 - 115 U/L 03/02/2025 9:55 AM EDT [facility] Total Bilirubin, Plasma 0.5 0.2 - 1.1 mg/dL 03/02/2025 9:55 AM EDT [facility] eGFRcr 102.3 mL/min/1.7 3m*2 03/02/2025 9:55 AM EDT [facility] Comment:Reported eGFRcr in m L/min/1.73m2 is based the CKD-EPI 2020 equation that does not use a race coefficient. Blood Venous blood specimen / Unknown Venipuncture / Unknown 03/02/2025 9:07 AM EDT 03/02/2025 9:20 AM EDT us Maninder Zhang MD LAB BLOOD ORDERABLES Final Resul t [facility] [address] [place] [address] * (ABNORMAL) CBC and differential (03/02/2025 9:07 AM EDT) WBC Count 19.59(H) 3.70 - 10.30 10*3/uL LAB HEMATOLOGY METHOD 03/02/2025 11:36 AM EDT [facility] RBC Count 2.43(L) 4.60 - 6.10 10*6/uL LAB HEMATOLOGY METHOD 03/02/2025 11:36 AM EDT [facility] HGB 7.1(L) 13.7 - 17.5 g/dL LAB HEMATOLOGY METHOD 03/02/2025 11:36 AM EDT [facility] HCT 24.5(L) 40.0 - 51.0 % LAB HEMATOLOGY METHOD 03/02/2025 11:36 AM EDT [facility] Platelet Count 244 155 - 369 10*3/uL LAB HEMATOLOGY METHOD 03/02/2025 11:36 AM EDT [facility] MCV 101(H) 79 - 98 fL LAB HEMATOLOGY METHOD 03/02/2025 11:36 AM EDT [facility] MCH 29.2 26.0 - 32.0 pg LAB HEMATOLOGY METHOD 03/02/2025 11:36 AM EDT [facility] MCHC 29.0(L) 30.7 - 35.5 g/dL LAB HEMATOLOGY METHOD 03/02/2025 11:36 AM EDT [facility] RDW 17.0(H) 11.5 - 14.5 % LAB HEMATOLOGY METHOD 03/02/2025 11:36 AM EDT [facility] MPV 10.2 8.8 - 12.5 fL LAB HEMATOLOGY METHOD 03/02/2025 11:36 AM EDT [facility] nRBC 0.0 <=0.0 per 100 WBCs LAB HEMATOLOGY METHOD 03/02/2025 11:36 AM EDT [facility] Differential Type Automated LAB HEMATOLOGY METHOD 03/02/2025 11:36 AM EDT [facility] Neutrophils % 89 % LAB HEMATOLOGY METHOD 03/02/2025 11:36 AM EDT [facility] Lymphocytes % 3 % LAB HEMATOLOGY METHOD 03/02/2025 11:36 AM EDT [facility] Monocytes % 5 % LAB HEMATOLOGY METHOD 03/02/2025 11:36 AM EDT [facility] Eosinophils % 0 % LAB HEMATOLOGY METHOD 03/02/2025 11:36 AM EDT [facility] Basophils % 0 % LAB HEMATOLOGY METHOD 03/02/2025 11:36 AM EDT [facility] Immature Granulocytes % 3 % LAB HEMATOLOGY METHOD 03/02/2025 11:36 AM EDT [facility] Neutrophils Absolute 17.37(H) 1.60 - 6.10 10*3/uL LAB HEMATOLOGY METHOD 03/02/2025 11:36 AM EDT [facility] Lymphocytes Absolute 0.52(L) 1.20 - 3.90 10*3/uL LAB HEMATOLOGY METHOD 03/02/2025 11:36 AM EDT [facility] Monocytes Absolute 0.99(H) 0.30 - 0.90 10*3/uL LAB HEMATOLOGY METHOD 03/02/2025 11:36 AM EDT [facility] Eosinophils Absolute 0.00 0.00 - 0.50 10*3/uL LAB HEMATOLOGY METHOD 03/02/2025 11:36 AM EDT [facility] Basophils Absolute 0.04 0.00 - 0.10 10*3/uL LAB HEMATOLOGY METHOD 03/02/2025 11:36 AM EDT [facility] Immature Granulocytes Absolute 0.67(H) 0.00 - 0.06 10*3/uL LAB HEMATOLOGY METHOD 03/02/2025 11:36 AM EDT [facility] Blood Venous blood specimen / Unknown Venipuncture / Unknown 03/02/2025 9:07 AM EDT 03/02/2025 9:21 AM EDT Narrative [facility] - 03/02/2025 11:36 AM EDT Therapeutic decision making should be based on absolute values, rather than percentages. Maninder Zhang MD LAB BLOOD ORDERABLES Final Resul t [facility] [address] [place] [address] documented in this encounter Visit Diagnoses Diagnosis [...] documented as of this encounter Care Teams Manager Data Relationship Specialty Start Date End Date Constantine Stiles APRN [address] [place] [address] PCP - General 01/21/23 Farhat Gómez MD [address] [address] Consulting Physician Radiation Oncology 10/27/24 documented as of this encounter
[2025-03-18 23:15] VITALS: BP 109/66; PULSE 94; RESP 18; O2SAT 97
[2025-03-18] MEDS: MORPHINE 4MG/ML SYRINGE 4 MG IV (23:33)
[2025-03-18 23:35] VITALS: BP 97/64; PULSE 93; RESP 17; O2SAT 96
[2025-03-18 23:45] VITALS: BP 109/65; PULSE 100; RESP 17; O2SAT 95
[2025-03-18] MEDS: ONDANSETRON 4MG/2ML VIAL 4 MG IV (23:45)
[2025-03-18 23:46] LABS: Hematocrit 24.8 % (42.0-52.0); Hemoglobin 7.8 g/dL (14.1-18.0); Immature Granulocytes % 2.7 %; Mean Corpuscular HGB Conc 31.5 g/dL (31.8-35.4); Mean Corpuscular Hemoglobin 30.8 pg (27.0-31.2); Mean Corpuscular Volume 98.0 fl (80-94); Nucleated Red Blood Cells % 0 %; Platelet Count 107 K/mm3 (142-424); Red Blood Count 2.53 M/mm3 (4.60-6.20); Red Cell Distribution Width-SD 59.3 fL; White Blood Count 18.4 K/mm3 (4.8-10.8)
[2025-03-18 23:52] LABS: Albumin Level 3.3 g/dl (3.5-5.0); Chloride 100 mmol/L (98-107); Potassium 4.4 mmoL/L (3.5-5.1); Sodium 137 mmol/L (136-145)
[2025-03-18 23:54] LABS: Blood Urea Nitrogen 16 mg/dl (9-20); Creatinine Clearance Estimated 68 mL/min (50-200); Creatinine,Serum 1.00 mg/dl (0.66-1.25); Estimated Glomerular Filt Rate 76 ml/min (>60); GFR (African American) 92 ML/MIN (>60)
[2025-03-18 23:55] LABS: Alanine Aminotransferase 38 U/L (12-78); Albumin/Globulin Ratio 0.9 (1.1-1.8); Alkaline Phosphatase 193 U/L (38-126); Anion Gap 14.4 mEq/L (5-15); Aspartate Amino Transferase 34 U/L (17-59); Bilirubin,Total 0.6 mg/dl (0.2-1.3); Calcium 9.2 mg/dl (8.4-10.2); Carbon Dioxide 27 mmol/L (22.0-30.0); Globulin 3.7 g/dL (1.3-3.2); Glucose 116 mg/dl (74-100); Lipase 18 U/L (23-300); Total Protein,Serum 7.0 g/dl (6.3-8.2)
[2025-03-19] VITALS (17 sets, daily range): BP systolic 94–124; BP diastolic 60–84; PULSE 85–99; RESP 11–20; TEMP 36.8; O2SAT 90–97
--- NOTE | 2025-03-19 | CT_ITS ---
PROCEDURE INFORMATION: Exam: CT Abdomen And Pelvis With Contrast Exam date and time: 03/19/2025 12:10 AM Age: 59 years old Clinical indication: Abdominal pain; Additional info: Rlq pain x2 days, HX metastatic cancer TECHNIQUE: Imaging protocol: Computed tomography of the abdomen and pelvis with contrast. Radiation optimization: All CT scans at this facility use at least one of these dose optimization techniques: automated exposure control; mA and/or kV adjustment per patient size (includes targeted exams where dose is matched to clinical indication); or iterative reconstruction. Contrast material: ISOVUE; Contrast volume: 75 ml; Contrast route: IV; COMPARISON: CT ANGIO ABD/PEL - GI BLEED 03/08/2025 2:29 PM FINDINGS: Lungs: Severe emphysema. Subsegmental consolidation in the posterior basal right lower lobe. Mild nodular consolidation in the left lower lobe. Stable 1 cm nodule in the lingula. Liver: Stable hepatic metastatic lesions. Gallbladder and biliary ducts: Normal. No calcified stones. No ductal dilation. Pancreas: Normal. No ductal dilation. Spleen: Normal. No splenomegaly. Adrenal glands: Stable 4.8 cm right adrenal metastatic lesion. Kidneys and ureters: Right nephrectomy. Stomach and bowel: Unremarkable. No obstruction. No mucosal thickening. Appendix: No evidence of appendicitis. Intraperitoneal space: Unremarkable. No free air. No significant fluid collection. Vasculature: Unremarkable. No abdominal aortic aneurysm. Lymph nodes: Unremarkable. No enlarged lymph nodes. Urinary bladder: Unremarkable as visualized. Reproductive: Unremarkable as visualized. Bones/joints: Lytic osseous metastatic lesions at T12, right iliac wing, left iliac wing. Soft tissues: Unremarkable. IMPRESSION: 1. No acute findings. 2. Stable hepatic metastatic lesions. 3. Stable 4.8 cm right adrenal metastatic lesion. 4. Lytic osseous metastatic lesions at T12, right iliac wing, left iliac wing.
[2025-03-19] MEDS: SODIUM CHLORIDE 0.9% 10ML SYR (RAD ONLY) 10 ML IV (00:10)
[2025-03-19] MEDS: IOPAMIDOL-370 (76%);100ML BOTTLE 75 ML IV (00:10)
[2025-03-19 01:49] LABS: Microscopic, Urine URINE MICROSCOPIC (MICROSCOPIC)
[2025-03-19 02:17] LABS: Bilirubin,Urine Negative (Negative); Color,Urine YELLOW (Yellow); Glucose,Urine (UA) Negative (Negative); Ketones,Urine Negative (Negative); Leukocyte Esterase,Urine Negative (Negative); PH,Urine 7.0 (5.0-8.5); Protein,Urine TRACE (Negative); Specific Gravity, Urine 1.010 (1.005-1.030); Urobilinogen,Urine 0.2 EU/dl (0.2)
[2025-03-19] MEDS: MORPHINE 4MG/ML SYRINGE 4 MG IV (02:58)
[2025-03-19 03:14] LABS: Bacteria,Urine Trace /lpf; Calcium Oxalate Crystals,Urine Trace /lpf; WBC,Urine Occasional #/hpf (0-3)
== END 2025-03-19 03:52 | disposition home or self-care (01) ==
PROVIDERS: Emergency Provider Emergency Medicine; PCP Nurse Practitioner Family
DX: R10.31 Right lower quadrant pain (principal); M54.50 Low back pain, unspecified; K59.00 Constipation, unspecified; C34.90 Malignant neoplasm of unspecified part of unspecified bronchus or lung; C79.51 Secondary malignant neoplasm of bone; Z87.891 Personal history of nicotine dependence
CPT/HCPCS: 74177; 80053; 81001; 83690; 85025; 86850; 93005; 96374; 96375; 96376; 99285; J2270; J2405; Q9967

== ENCOUNTER 2025-03-19 18:12 | Observation (INO) | payer MEDICAID, SELFPAY ==
--- OUTSIDE RECORDS SUMMARY | 2025-01-19 09:00 | XMS_ITS | Encounter Summary ---
Author Organization [facility] Address [address] [place] [address] Care Team Providers Care Specialty Molder Name Role Phone Constantine Stiles APRN Primary Care Provider [phone] Farhat Gómez MD Unavailable Reason for Visit * Reason Comments Labs Peripheral stick, ri ght armGuardant draw Encounter Details Date Type Department Care Team (Latest Contact Info) Description 01/19/2025 9:00 AM EDT Clinical Support Pav [facility] [address] [place] [phone] Malignant neoplasm of upper lobe of left [...] Team (Late st Contact Info) Description 03/23/2025 10:30 AM EDT Clinical Support Pav [facility] [address] [facility], [address] [place] [phone] 03/23/2025 11:00 AM EDT Office Visit Pav [facility] [address] [facility], [address] [place] [phone] Maninder Zhang MD [address] [facility] [address] [place] [address] 03/23/2025 12:00 PM EDT Appointment [facility] [address] [place] [address] documented as of this encounter Procedures Procedure [...] - 4.20 uIU/mL 01/19/2025 10:[address] [facility] Blood Venous blood specimen / Unknown Venipuncture / Unknown 01/19/2025 8:58 AM EDT 01/19/2025 9:31 AM EDT Maninder Zhang MD LAB BLOOD ORDERABLES Final Resul t Performing Organization Address City/[facility]/ZIP Co de Phone Number [facility] [address] [place] [address] * Magnesium (01/19/2025 8:58 AM EDT) Magnesium, Plasma 2.1 1.9 - 2.4 mg/dL 01/19/2025 10:[address] [facility] Blood Venous blood specimen / Unknown Venipuncture / Unknown 01/19/2025 8:58 AM EDT 01/19/2025 9:31 AM EDT Maninder Zhang MD LAB BLOOD ORDERABLES Final Resul t Performing Organization Address [facility] Co de Phone Number [facility] [address] [place] [address] * (ABNORMAL) Comprehensive metabolic panel (01/19/2025 8:58 AM EDT) Glucose, Plasma 101(H) 74 - 99 mg/dL 01/19/2025 10:[address] [facility] BUN, Plasma 13 8 - 23 mg/dL 01/19/2025 10:[address] [facility] Creatinine, Plasma 0.99 0.70 - 1.20 mg/dL 01/19/2025 10:[address] [facility] BUN/Creatinine Ratio 13 01/19/2025 10:[address] [facility] Sodium, Plasma 135(L) 136 - 145 mmol/L 01/19/2025 10:[address] [facility] Potassium, Plasma 4.3 3.6 - 4.9 mmol/L 01/19/2025 10:[address] [facility] Chloride, Plasma 99 97 - 107 mmol/L 01/19/2025 10:[address] [facility] CO2, Plasma 26 22 - 29 mmol/L 01/19/2025 10:[address] [facility] Anion Gap 10 6 - 16 mmol/L 01/19/2025 10:[address] [facility] Total Calcium, Plasma 9.7 8.9 - 10.2 mg/dL 01/19/2025 10:[address] [facility] Total Protein 7.1 6.3 - 7.9 g/dL 01/19/2025 10:[address] [facility] Albumin, Plasma 3.4(L) 3.5 - 5.2 g/dL 01/19/2025 10:[address] [facility] AST, Plasma 32 10 - 50 U/L 01/19/2025 10:[address] [facility] ALT, Plasma 50 10 - 50 U/L 01/19/2025 10:[address] [facility] Alkaline Phosphatase, Plasma 173(H) 40 - 115 U/L 01/19/2025 10:[address] [facility] Total Bilirubin, Plasma <0.2(L) 0.2 - 1.1 mg/dL 01/19/2025 10:[address] [facility] eGFRcr 86.7 mL/min/1.7 3m*2 01/19/2025 10:[address] [facility] Comment:Reported eGFRcr in m L/min/1.73m2 is based the CKD-EPI 2020 equation that does not use a race coefficient. Blood Venous blood specimen / Unknown Venipuncture / Unknown 01/19/2025 8:58 AM EDT 01/19/2025 9:31 AM EDT us Maninder Zhang MD LAB BLOOD ORDERABLES Final Resul t [facility] [address] [place] [address] * (ABNORMAL) CBC and differential (01/19/2025 8:58 AM EDT) WBC Count 21.91(H) 3.70 - 10.30 10*3/uL LAB HEMATOLOGY METHOD 01/19/2025 9:[address] [facility] RBC Count 3.10(L) 4.60 - 6.10 10*6/uL LAB HEMATOLOGY METHOD 01/19/2025 9:[address] [facility] HGB 8.9(L) 13.7 - 17.5 g/dL LAB HEMATOLOGY METHOD 01/19/2025 9:[address] [facility] HCT 29.7(L) 40.0 - 51.0 % LAB HEMATOLOGY METHOD 01/19/2025 9:[address] [facility] Platelet Count 449(H) 155 - 369 10*3/uL LAB HEMATOLOGY METHOD 01/19/2025 9:[address] [facility] MCV 96 79 - 98 fL LAB HEMATOLOGY METHOD 01/19/2025 9:[address] [facility] MCH 28.7 26.0 - 32.0 pg LAB HEMATOLOGY METHOD 01/19/2025 9:[address] [facility] MCHC 30.0(L) 30.7 - 35.5 g/dL LAB HEMATOLOGY METHOD 01/19/2025 9:[address] [facility] RDW 19.9(H) 11.5 - 14.5 % LAB HEMATOLOGY METHOD 01/19/2025 9:[address] [facility] MPV 8.5(L) 8.8 - 12.5 fL LAB HEMATOLOGY METHOD 01/19/2025 9:[address] [facility] nRBC 0.0 <=0.0 per 100 WBCs LAB HEMATOLOGY METHOD 01/19/2025 9:[address] [facility] Differential Type Automated LAB HEMATOLOGY METHOD 01/19/2025 9:[address] [facility] Neutrophils % 90 % LAB HEMATOLOGY METHOD 01/19/2025 9:[address] [facility] Lymphocytes % 3 % LAB HEMATOLOGY METHOD 01/19/2025 9:[address] [facility] Monocytes % 6 % LAB HEMATOLOGY METHOD 01/19/2025 9:[address] [facility] Eosinophils % 0 % LAB HEMATOLOGY METHOD 01/19/2025 9:[address] [facility] Basophils % 0 % LAB HEMATOLOGY METHOD 01/19/2025 9:[address] [facility] Immature Granulocytes % 1 % LAB HEMATOLOGY METHOD 01/19/2025 9:[address] [facility] Neutrophils Absolute 19.43(H) 1.60 - 6.10 10*3/uL LAB HEMATOLOGY METHOD 01/19/2025 9:[address] [facility] Lymphocytes Absolute 0.70(L) 1.20 - 3.90 10*3/uL LAB HEMATOLOGY METHOD 01/19/2025 9:[address] [facility] Monocytes Absolute 1.33(H) 0.30 - 0.90 10*3/uL LAB HEMATOLOGY METHOD 01/19/2025 9:[address] [facility] Eosinophils Absolute 0.08 0.00 - 0.50 10*3/uL LAB HEMATOLOGY METHOD 01/19/2025 9:[address] [facility] Basophils Absolute 0.07 0.00 - 0.10 10*3/uL LAB HEMATOLOGY METHOD 01/19/2025 9:[address] [facility] Immature Granulocytes Absolute 0.30(H) 0.00 - 0.06 10*3/uL LAB HEMATOLOGY METHOD 01/19/2025 9:[address] [facility] Blood Venous blood specimen / Unknown Venipuncture / Unknown 01/19/2025 8:58 AM EDT 01/19/2025 9:[address] [facility] - 01/19/2025 9:50 AM EDT Therapeutic decision making should be based on absolute values, rather than percentages. us Maninder Zhang MD LAB BLOOD ORDERABLES Final Resul t [facility] [address] [place] [address] * (ABNORMAL) Hemoglobin A1c (01/19/2025 8:58 AM EDT) Hemoglobin A1c 6.6(H) <5.7 % 01/19/2025 10:[address] [facility] Blood Venous blood specimen / Unknown Venipuncture / Unknown 01/19/2025 8:58 AM EDT 01/19/2025 9:35 AM EDT N[facility]ative [facility] - 01/19/2025 10:31 AM EDT HA1C Interpretive Data: Diagnosis of Diabetes: Diabetic > or = 6.5% Pre-diabetic 5.7 to 6.4% Non-diabetic < or = 5.6% Glycemic Targets for Type I and Type II Diabetics: Non- Adults <7.0% Adults <6.0% Children and Adolescents <7.5% Source: [place] [employer]. Standards of medical care in diabetes,2017. Diabetes Care.2017:40 (suppl 1):S1-S135. us Maninder Zhang MD LAB BLOOD ORDERABLES Final Resul t [facility] [address] [place] [address] documented in this encounter Visit Diagnoses Diagnosis [...] documented as of this encounter Care Teams Specialty Molder Relationship Specialty Start Date End Date Constantine Stiles APRN [address] [place] [address] PCP - General 01/21/23 Farhat Gómez MD [address] [facility] [id number] [place] [address] Consulting Physician Radiation Oncology 10/27/24 documented as of this encounter
--- OUTSIDE RECORDS SUMMARY | 2025-01-19 09:11 | XMS_ITS | Encounter Summary ---
Author Organization [facility] Address [address] [place] [address] Care Team Providers Care Career Resource Technician Name Role Phone Constantine Stiles APRN Primary Care Provider [phone] Farhat Gómez MD Unavailable Reason for Visit * Episode Based Medications (Routine) - Authorized Specialty Diagnoses / Procedures Referred By Hugo t Referred To Contact Diagnoses Malignant neoplasm of upper lobe of left lung (CMS/HCC) Procedures Pembrolizumab / PACLitaxel / CARBOplatin Every 21 Days Maninder Zhang MD [address] [address] Phone: tel: fax: Maninder Zhang MD [address] [address] Phone: tel: fax: Referral ID Status Reason Start Date Expiration Date V isits Requested Visits Authorized [id number] Authorized 01/19/2025 07/21/2026 1 4 Encounter Details Date Type Department Care Team (Latest Contact Info) Description 01/19/2025 9:11 AM EDT - 01/19/2025 11:59 PM EDT Hospital Encounter [facility] [address] [place] [address] Malignant neoplasm of upper lobe of left [...] I have reviewed patient and agree with deliverer pharmacy documented in this encounter Plan of Treatment Upcoming Encounters Date Type Department Care Team ([facility] st Contact Info) Description 03/23/2025 10:30 AM EDT Clinical Support [facility] [address] [facility], [address]nd [place] [address] 03/23/2025 11:00 AM EDT Office Visit [facility] [address] [facility], [address] [place] [address] Maninder Zhang MD [address] [facility] Sh[address] Dubois [facility] [address] [place] [address] 03/23/2025 12:00 PM EDT Appointment [facility] [address] [place] [address] documented as of this encounter Visit Diagnoses [...] documented as of this encounter Care Teams Career Resource Technician Relationship Specialty Start Date End Date Constantine Stiles APRN [address] [place] [address] PCP - General 01/21/23 Farhat Gómez MD [address] [place] [phone] Consulting Physician Radiation Oncology 10/27/24 documented as of this encounter
--- OUTSIDE RECORDS SUMMARY | 2025-02-09 11:15 | XMS_ITS | Encounter Summary ---
Author Organization Healthcare Address [address] [place] [address] Care Team Providers Care Academic Registrar Name Role Phone Constantine Stiles APRN Primary Care Provider [phone] Farhat Gómez MD Unavailable Reason for Visit * Reason Comments Labs Encounter Details Date Type Department Care Team ([facility] Contact Info) Description 02/09/2025 11:15 AM EDT Clinical Support Pav [facility] Respiratory [address] [place] [phone] Social History Tobacco Use Types Packs/Day Years [...] & Respiratory [address] [place] [phone] 03/23/2025 11:00 AM EDT Office Visit Pav [facility] Respiratory [address] [place] [phone] Maninder Zhang MD [address] [place] [address] 03/23/2025 12:00 PM EDT Appointment [facility] [address] [place] [phone] documented as of this encounter Visit Diagnoses Not on filedocumented in this encounter Additional Health Concerns Assessment Noted Time A fall risk assessment has been complete d for the patient 02/09/2025 1:33 PM EDT A Body Mass Index follow-up plan has been documented for the patient 01/19/2025 4:11 PM EDT documented as of this encounter Care Teams Academic Registrar Relationship Specialty Start Date End Date Constantine Stiles APRN [address] [place] [id number] PCP - General 01/21/23 Farhat Gómez MD [address] [place] [address] Consulting Physician Radiation Oncology 10/27/24 documented as of this encounter
--- OUTSIDE RECORDS SUMMARY | 2025-02-09 11:30 | XMS_ITS | Encounter Summary ---
Author Organization Healthcare Address [address] [place] [address] Care Team Providers Care Compress Engineer Name Role Phone Constantine Stiles APRN Primary Care Provider [phone] Farhat Gómez MD Unavailable Reason for Visit * Reason Comments Follow-up * Episode Based Medications (Routine) - Authorized Specialty Diagnoses / Procedures Referred By Contmanjula t Referred To Contact Diagnoses Malignant neoplasm of upper lobe of left lung (CMS/HCC) Procedures Pembrolizumab / PACLitaxel / CARBOplatin Every 21 Days Maninder Zhang MD [address] [facility] Shannan Dubois [address] [address] Phone: tel: fax: Maninder Zhang MD [address] [facility] Shannan Dubois [address] [address] Phone: tel: fax: Referral ID Status Reason Start Date Expiration Date V isits Requested Visits Authorized [id number] Authorized 01/19/2025 07/21/2026 1 4 Encounter Details Date Type Department Care Team (Late st Contact Info) Description 02/09/2025 11:30 AM EDT Office Visit [facility] [address] [facility], [address]nd [place] [address] Elsa Judge APRN [address] [facility] [address] [place] [address] Malignant neoplasm of upper lobe of left [...] : 1965 REFERRING PHYSICIAN: Maninder Zhang MD [address] [place] [address] [address] Encounter Date: 02/09/25 Patient Care Team: Constantine [...] FDA-approved test, with diseaseprogression on or after [employer]sem[employer] ind[employer]-containing chemotherapy. Patients with EGFR or ALK genomic tumor aberrations should have disease progression on FDA-approved therapy for these aberrations prior to rec eiving Pembrolizumab. PD-L1 IHC serves as a complementary diagnostic in regards to other PD-L1/JP-6-wmhmfljmrqktsbdhf (Nivolumab, Atezolizumab, Durvalumab, etc). Expression level: >Negative for PD-L1 expression (TPS less than 1%) >Positive for PD-L1 expression (TPS 1-49%) >Positive for high PD-L1 expression (TPS greater than or equal to 50%) *PD-L1 IHC 22C3 pharmDx is a FDA-approved chopping machine operator diagnostic for pembrolizumab performed on [employer]ako [employer]end[employer] Stainer using formalin-fixed, paraffin imbedded (FFPE) tissue [...] developed by and are performed at the [facility], [address] [place] [address]. All tests reported here, except those addressing [...] disease stability. The cancer was staged at [id number].Other small nodules will be watched. And his case was also discussed in the multiD conference. However, recent PET on 10/15/24 showed PD with involvement of N2 node on the left. Chemoradiation was started on 11/17/24. 1. Cancer management : Early stage lung cancer- [id number] 02/2024. -patient was longstanding history of smoking [...] next repeat imaging (efficacy) in once completes [employer] unless early concerns for progression and/or as [...] future - Not eligible for TORY-008 or URR908 at present. 5. At Risk of Infection [...] by PCP). 6. Supportive Care Weight loss- Canoe Inspector consult today (weight trend is DOWN). Will [...] Currently Social Drivers of Health Received from [employer] Food Insecurity Received from [employer] Family and Community Support [5] No Known [...] [facility] [address] [facility], [address]nd [place] [address] 03/23/2025 11:00 AM EDT Office Visit [facility] [address] [place] [address] Maninder Zhang MD [address] [facility] [address] [place] [address] 03/23/2025 12:00 PM EDT Appointment [facility] In[facility] [address] [place] [address] documented as of this encounter Procedures Procedure Name Priority Date/Time Associated Diagnosis Comments FINE NEEDLE ASPIRATION - CYTOLOGY Routine 02/09/2025 12:17 PM EDT Malignant neoplasm of upper lobe of left lung (CMS/HCC) documented in this encounter Results * Fine needle aspiration (02/09/2025 12:17 PM EDT) Case Report Cytology Case: [id number] Authorizing Provider: Maninder Zhang MD Collected: 02/09/2025 1217 Ordering Location: [facility] & Received: 02/09/2025 1217 Respiratory Pathologist: Margie Garcia MD Specimen: Other, Fine Needle Aspiration (Specify Site), LEFT CHEST NODULE, SUPERFICIAL FINE NEEDLE ASPIRATION 02/11/2025 9:54 AM EDT [facility] Final Diagnosis CHEST NODULE, LEFT, SUPERFICIAL FINE NEEDLE ASPIRATION: - SUSPICIOUS FOR MALIGNANCY. SEE COMMENT. 02/11/2025 9:54 AM EDT [facility] at 0953 EDT Comment There are several atypical and degenerated squamous cells present, which are suspicious for squamous cell carcinoma. However, in the setting of a cystic lesion (with approximately 4 ml of straw-colored fluid obtained), the epithelial atypia could be reactive/degener ative, rather than neoplastic. 02/11/2025 9:54 AM EDT [facility] Immediate Evaluation FNA performed and/or attended [...] on the report. 02/11/2025 9:54 AM EDT [facility] Clinical History squamous cell lung cancer 02/11/2025 9:54 AM EDT [facility] Procedure Type Superficial 9:54 AM EDT [facility] Size/Descripti on of Lesion Left Chest 02/11/2025 9:54 AM EDT [facility] Cancer History Yes 02/11/2025 9:54 AM EDT [facility] Gross Description A. LEFT CHEST NODULE, SUPERFICIAL FINE NEEDLE ASPIRATION 5 ml's tinted needle rinse fluid processed as Thinprep for complete evaluation of sample. Received 3 diff quick slides and 3 pap slides. 02/11/2025 9:54 AM EDT [facility] Note: A resident was involved in the service. I attest I examined the relevant preparations for the specimens and confirmed the diagnosis or interpretation. 02/11/2025 9:54 AM EDT [facility] Clinical Information C34.12 - Malignant neoplasm of upper lobe of left lung (CMS/HCC) [ICD-10-CM] 02/11/2025 9:54 AM EDT [facility] Fine Needle Aspirate Fine needle biopsy / Unknown Non-blood Collection / Unknown 02/09/2025 12:17 PM EDT 02/09/2025 12:17 PM EDT us Maninder Zhang MD LAB CYTOLOGY ORDERABLES Final Re sult [facility] [address] [place] [address] documented in this encounter Visit Diagnoses Diagnosis [...] documented as of this encounter Care Teams Compress Engineer Relationship Specialty Start Date End Date Constantine Stiles APRN [address] [place] [address] PCP - General 01/21/23 Farhat Gómez MD [address] [facility] [address] [place] [address] Consulting Physician Radiation Oncology 10/27/24 documented as of this encounter
--- OUTSIDE RECORDS SUMMARY | 2025-02-09 12:30 | XMS_ITS | Encounter Summary ---
Author Organization [facility] Address [address] [place] [address] Care Team Providers Care Rn Support Services Name Role Phone Constantine Stiles APRN Primary Care Provider [phone] Farhat Gómez MD Unavailable Reason for Visit * Episode Based Medications (Routine) - Authorized Specialty Diagnoses / Procedures Referred By Contmanjula t Referred To Contact Diagnoses Malignant neoplasm of upper lobe of left lung (CMS/HCC) Procedures Pembrolizumab / PACLitaxel / CARBOplatin Every 21 Days Maninder Zhang MD [address] [address] Phone: tel: fax: Maninder Zhang MD [address] [address] Phone: tel: fax: Referral ID Status Reason Start Date Expiration Date V isits Requested Visits Authorized [id number] Authorized 01/19/2025 07/21/2026 1 4 Encounter Details Date Type Department Care Team (Latest Contact Info) Description 02/09/2025 12:30 PM EDT - 02/09/2025 11:59 PM EDT Hospital Encounter [facility] [address] [place] [address] Malignant neoplasm of upper lobe of left [...] Indicated 02/09/2025 11:17 AM EDT Rito Light R * Question Answer Date of Assessment [...] 01/09/2023 5 cyclobenzaprine (Flexeril) 10 MG tablet TAKE ONE TABLET BY MOUTH 2 TIMES A DAY NEEDED FOR MUSCLE SPASMS 30 tablet 1 02/01/2025 5 dexamethasone (Decadron) 4 MG tabletIndication s:Malignant [...] inhaler 1 (one) time each day. 02/10/2024 5 documented as of this encounter Plan of Treatment Upcoming Encounters Date Type Department Care Team (Late st Contact Info) Description 03/23/2025 10:30 AM EDT Clinical Support Pav [facility] 800 [facility], [address]nd [place] [address] 03/23/2025 11:00 AM EDT Office Visit Pav [facility] Respiratory [address] [facility], [address] [place] [address] Maninder Zhang MD 800 [facility] Shannan Dubois [facility] [address] [place] [address] 03/23/2025 12:00 PM EDT Appointment [facility] [address] [place] [address] documented as of this encounter Procedures Procedure [...] CBC and differential (02/09/2025 11:22 AM EDT) [facility] Signature WBC Count 15.60(H) 3.70 - 10.30 10*3/uL LAB HEMATOLOGY METHOD 02/09/2025 11:48 AM EDT [facility] RBC Count 2.97(L) 4.60 - 6.10 10*6/uL LAB HEMATOLOGY METHOD 02/09/2025 11:48 AM EDT [facility] HGB 8.7(L) 13.7 - 17.5 g/dL LAB HEMATOLOGY METHOD 02/09/2025 11:48 AM EDT [facility] HCT 28.2(L) 40.0 - 51.0 % LAB HEMATOLOGY METHOD 02/09/2025 11:48 AM EDT [facility] Platelet Count 212 155 - 369 10*3/uL LAB HEMATOLOGY METHOD 02/09/2025 11:48 AM EDT [facility] MCV 95 79 - 98 fL LAB HEMATOLOGY METHOD 02/09/2025 11:48 AM EDT [facility] MCH 29.3 26.0 - 32.0 pg LAB HEMATOLOGY METHOD 02/09/2025 11:48 AM EDT [facility] MCHC 30.9 30.7 - 35.5 g/dL LAB HEMATOLOGY METHOD 02/09/2025 11:48 AM EDT [facility] RDW 18.6(H) 11.5 - 14.5 % LAB HEMATOLOGY METHOD 02/09/2025 11:48 AM EDT [facility] MPV 9.8 8.8 - 12.5 fL LAB HEMATOLOGY METHOD 02/09/2025 11:48 AM EDT [facility] nRBC 0.0 <=0.0 per 100 WBCs LAB HEMATOLOGY METHOD 02/09/2025 11:48 AM EDT [facility] Differential Type Automated LAB HEMATOLOGY METHOD 02/09/2025 11:48 AM EDT [facility] Neutrophils % 84 % LAB HEMATOLOGY METHOD 02/09/2025 11:48 AM EDT [facility] Lymphocytes % 7 % LAB HEMATOLOGY METHOD 02/09/2025 11:48 AM EDT [facility] Monocytes % 8 % LAB HEMATOLOGY METHOD 02/09/2025 11:48 AM EDT [facility] Eosinophils % 0 % LAB HEMATOLOGY METHOD 02/09/2025 11:48 AM EDT [facility] Basophils % 0 % LAB HEMATOLOGY METHOD 02/09/2025 11:48 AM EDT [facility] Immature Granulocytes % 1 % LAB HEMATOLOGY METHOD 02/09/2025 11:48 AM EDT [facility] Neutrophils Absolute 13.02(H) 1.60 - 6.10 10*3/uL LAB HEMATOLOGY METHOD 02/09/2025 11:48 AM EDT [facility] Lymphocytes Absolute 1.15(L) 1.20 - 3.90 10*3/uL LAB HEMATOLOGY METHOD 02/09/2025 11:48 AM EDT [facility] Monocytes Absolute 1.19(H) 0.30 - 0.90 10*3/uL LAB HEMATOLOGY METHOD 02/09/2025 11:48 AM EDT [facility] Eosinophils Absolute 0.01 0.00 - 0.50 10*3/uL LAB HEMATOLOGY METHOD 02/09/2025 11:48 AM EDT [facility] Basophils Absolute 0.05 0.00 - 0.10 10*3/uL LAB HEMATOLOGY METHOD 02/09/2025 11:48 AM EDT [facility] Immature Granulocytes Absolute 0.18(H) 0.00 - 0.06 10*3/uL LAB HEMATOLOGY METHOD 02/09/2025 11:48 AM EDT [facility] Blood Venous blood specimen / Unknown Venipuncture / Unknown 02/09/2025 11:22 AM EDT 02/09/2025 11:34 AM EDT Narrative [facility] - 02/09/2025 11:48 AM EDT Therapeutic decision making should be based on absolute values, rather than percentages. us Maninder Zhang MD LAB BLOOD ORDERABLES Final Resul t [facility] [address] [place] [address] * (ABNORMAL) Comprehensive metabolic panel (02/09/2025 11:22 AM EDT) [facility] Glucose, Plasma 132(H) 74 - 99 mg/dL 02/09/2025 12:10 PM EDT [facility] BUN, Plasma 10 8 - 23 mg/dL 02/09/2025 12:10 PM EDT [facility] Creatinine, Plasma 0.81 0.70 - 1.20 mg/dL 02/09/2025 12:10 PM EDT [facility] BUN/Creatinine Ratio 12 02/09/2025 12:10 PM EDT [facility] Sodium, Plasma 133(L) 136 - 145 mmol/L 02/09/2025 12:10 PM EDT [facility] Potassium, Plasma 4.2 3.6 - 4.9 mmol/L 02/09/2025 12:10 PM EDT [facility] Chloride, Plasma 98 97 - 107 mmol/L 02/09/2025 12:10 PM EDT [facility] CO2, Plasma 22 22 - 29 mmol/L 02/09/2025 12:10 PM EDT [facility] Anion Gap 13 6 - 16 mmol/L 02/09/2025 12:10 PM EDT [facility] Total Calcium, Plasma 10.3(H) 8.9 - 10.2 mg/dL 02/09/2025 12:10 PM EDT [facility] Total Protein 7.6 6.3 - 7.9 g/dL 02/09/2025 12:10 PM EDT [facility] Albumin, Plasma 3.4(L) 3.5 - 5.2 g/dL 02/09/2025 12:10 PM EDT [facility] AST, Plasma 21 10 - 50 U/L 02/09/2025 12:10 PM EDT [facility] ALT, Plasma 30 10 - 50 U/L 02/09/2025 12:10 PM EDT [facility] Alkaline Phosphatase, Plasma 197(H) 40 - 115 U/L 02/09/2025 12:10 PM EDT [facility] Total Bilirubin, Plasma 0.4 0.2 - 1.1 mg/dL 02/09/2025 12:10 PM EDT [facility] eGFRcr 100.3 mL/min/1.7 3m*2 02/09/2025 12:10 PM EDT [facility] Comment:Reported eGFRcr in m L/min/1.73m2 is based the CKD-EPI 2020 equation that does not use a race coefficient. Blood Venous blood specimen / Unknown Venipuncture / Unknown 02/09/2025 11:22 AM EDT 02/09/2025 11:40 AM EDT Maninder Zhang MD LAB BLOOD ORDERABLES Final Resul t Performing Organization Address City/[facility]/ZIP Co de Phone Number [facility] [address] [place] [address] * Magnesium (02/09/2025 11:22 AM EDT) Magnesium, Plasma 2.0 1.9 - 2.4 mg/dL 02/09/2025 12:10 PM EDT [facility] Blood Venous blood specimen / Unknown Venipuncture / Unknown 02/09/2025 11:22 AM EDT 02/09/2025 11:40 AM EDT Maninder Zhang MD LAB BLOOD ORDERABLES Final Resul t Performing Organization Address City/[facility] Co de Phone Number [facility] [address] [place] [address] documented in this encounter Visit Diagnoses Diagnosis [...] Filter Required. Use 0.2 micron filter., On 5/28/25 at 1400, For 1 dose, In 100 [...] documented as of this encounter Care Teams Rn Support Services Relationship Specialty Start Date End Date Constantine Stiles APRN [address] [place] [phone] PCP - General 01/21/23 Farhat Gómez MD [address] [place] [phone] Consulting Physician Radiation Oncology 10/27/24 documented as of this encounter
--- OUTSIDE RECORDS SUMMARY | 2025-03-02 08:45 | XMS_ITS | Encounter Summary ---
Author Organization Healthcare Address [address] [place] [address] Care Team Providers Care Pottery Decoration Designer Name Role Phone Constantine Stiles APRN Primary Care Provider [phone] [phone] Farhat Gómez MD Unavailable Reason for Visit * Reason Comments Labs Peripheral stick, le ft arm Encounter Details Date Type Department Care Team (Latest Contact Info) Description 03/02/2025 8:45 AM EDT Clinical Support Pav [facility] [address] [place] [id number] Malignant neoplasm of upper lobe of left lung (CMS/HCC) Social History Tobacco Use Types Packs/Day Years Used Date Smoking Tobacco: Former Cigarettes 2 45.4 1 979 - 02/14/2024 Passive Smoke Exposure: Past Smokeless Tobacco: Never Alcohol Use Standard Drinks/Week Comments Not Currently 0 (1 standard drink = 0.6 oz pur e alcohol) AUDIT-C Answer Date Recorded Q1: How often do you have a drink containing alcohol? Never 03/02/2025 Q2: How many drinks containi ng alcohol do you have on a typical day when you are drinking? Patient does not drink Q3: How often do you have si x or more drinks on one occasion? Never 03/02/2025 Sex and Gender Information Value Date Recorded Sex Assigned at Not on file Legal Sex Male 10:53 AM EDT Gender Identity Not on file Sexual Orientation Not on file documented as of this encounter Functional Status * AUDIT-C Score Answer Date of Assessment Author 0 03/02/2025 8:56 AM EDT Kristine Lewis * Question Answer Date of Assessment Author Q1: How often do you have a drink containing alcohol? Never 03/02/2025 8:56 AM EDT Kristine Lewis Q2: How many drinks containing alcohol do you have on a typical day when you are drinking? Patient does not drink 03/02/2025 8:56 AM EDT Kristine Lewis Q3: How often do you have six or more drinks on one occasion? Never 03/02/2025 8:56 AM EDT Kristine Lewis documented as of this encounter Miscellaneous Notes * Clinician Note - Kristine Lewis - 03/02/2025 8:45 AM EDT Peripheral stick, left arm documented in this encounter Plan of Treatment Upcoming Encounters Date Type Department Care Team ([facility] st Contact Info) Description 03/23/2025 10:30 AM EDT Clinical Support Pav [facility] [address] [phone] 03/23/2025 11:00 AM EDT Office Visit Pav [facility] [address] [phone] Maninder Zhang MD 800 [facility] Shannan Dubois [address] [phone] 03/23/2025 12:00 PM EDT Appointment [facility] Infusion [address] [place] [address] documented as of this encounter Procedures Procedure Name Priority Date/Time Associated Diagnosis Comments TSH REFLEX FT4 Routine 03/02/2025 9:07 AM EDT Malignant neoplasm of upper lobe of left lung (CMS/HCC) CBC WITH AUTO DIFFERENTIAL Routine 03/02/2025 9:07 AM EDT Malignant neoplasm of upper lobe of left lung (CMS/HCC) MAGNESIUM, PLASMA STAT 03/02/2025 9:0 7 AM EDT Malignant neoplasm of upper lobe of left lung (CMS/HCC) COMPREHENSIVE METABOLIC PANEL, PLASMA Routine 03/02/2025 9:07 AM EDT Malignant neoplasm of upper lobe of left lung (CMS/HCC) documented in this encounter Results * TSH reflex FT4 (03/02/2025 9:07 AM EDT) Thyroid Stimulating Hormone, Plasma 1.63 0.40 - 4.20 uIU/mL 03/02/2025 9:56 AM EDT [facility] Blood Venous blood specimen / Unknown Venipuncture / Unknown 03/02/2025 9:07 AM EDT 03/02/2025 9:20 AM EDT Maninder Zhang MD LAB BLOOD ORDERABLES Final Resul t Performing Organization Address City/[facility]/ZIP Co de Phone Number [facility] [address] [place] [address] * Magnesium (03/02/2025 9:07 AM EDT) Magnesium, Plasma 1.9 1.9 - 2.4 mg/dL 03/02/2025 9:56 AM EDT [facility] Blood Venous blood specimen / Unknown Venipuncture / Unknown 03/02/2025 9:07 AM EDT 03/02/2025 9:20 AM EDT Maninder Zhang MD LAB BLOOD ORDERABLES Final Resul t [facility] [address] [place] [address] * (ABNORMAL) Comprehensive metabolic panel (03/02/2025 9:07 AM EDT) Glucose, Plasma 232(H) 74 - 99 mg/dL 03/02/2025 9:55 AM EDT [facility] BUN, Plasma 7(L) 8 - 23 mg/dL 03/02/2025 9:55 AM EDT [facility] Creatinine, Plasma 0.76 0.70 - 1.20 mg/dL 03/02/2025 9:55 AM EDT [facility] BUN/Creatinine Ratio 9 03/02/2025 9:55 AM EDT [facility] Sodium, Plasma 137 136 - 145 mmol/L 03/02/2025 9:55 AM EDT [facility] Potassium, Plasma 4.6 3.6 - 4.9 mmol/L 03/02/2025 9:55 AM EDT [facility] Chloride, Plasma 100 97 - 107 mmol/L 03/02/2025 9:55 AM EDT [facility] CO2, Plasma 23 22 - 29 mmol/L 03/02/2025 9:55 AM EDT [facility] Anion Gap 14 6 - 16 mmol/L 03/02/2025 9:55 AM EDT [facility] Total Calcium, Plasma 9.8 8.9 - 10.2 mg/dL 03/02/2025 9:55 AM EDT [facility] Total Protein 7.4 6.3 - 7.9 g/dL 03/02/2025 9:55 AM EDT [facility] Albumin, Plasma 3.3(L) 3.5 - 5.2 g/dL 03/02/2025 9:55 AM EDT [facility] AST, Plasma 25 10 - 50 U/L 03/02/2025 9:55 AM EDT [facility] ALT, Plasma 43 10 - 50 U/L 03/02/2025 9:55 AM EDT [facility] Alkaline Phosphatase, Plasma 205(H) 40 - 115 U/L 03/02/2025 9:55 AM EDT [facility] Total Bilirubin, Plasma 0.5 0.2 - 1.1 mg/dL 03/02/2025 9:55 AM EDT [facility] eGFRcr 102.3 mL/min/1.7 3m*2 03/02/2025 9:55 AM EDT [facility] Comment:Reported eGFRcr in m L/min/1.73m2 is based the CKD-EPI 2020 equation that does not use a race coefficient. Blood Venous blood specimen / Unknown Venipuncture / Unknown 03/02/2025 9:07 AM EDT 03/02/2025 9:20 AM EDT us Maninder Zhang MD LAB BLOOD ORDERABLES Final Resul t [facility] [address] [place] [address] * (ABNORMAL) CBC and differential (03/02/2025 9:07 AM EDT) WBC Count 19.59(H) 3.70 - 10.30 10*3/uL LAB HEMATOLOGY METHOD 03/02/2025 11:36 AM EDT [facility] RBC Count 2.43(L) 4.60 - 6.10 10*6/uL LAB HEMATOLOGY METHOD 03/02/2025 11:36 AM EDT [facility] HGB 7.1(L) 13.7 - 17.5 g/dL LAB HEMATOLOGY METHOD 03/02/2025 11:36 AM EDT [facility] HCT 24.5(L) 40.0 - 51.0 % LAB HEMATOLOGY METHOD 03/02/2025 11:36 AM EDT [facility] Platelet Count 244 155 - 369 10*3/uL LAB HEMATOLOGY METHOD 03/02/2025 11:36 AM EDT [facility] MCV 101(H) 79 - 98 fL LAB HEMATOLOGY METHOD 03/02/2025 11:36 AM EDT [facility] MCH 29.2 26.0 - 32.0 pg LAB HEMATOLOGY METHOD 03/02/2025 11:36 AM EDT [facility] MCHC 29.0(L) 30.7 - 35.5 g/dL LAB HEMATOLOGY METHOD 03/02/2025 11:36 AM EDT [facility] RDW 17.0(H) 11.5 - 14.5 % LAB HEMATOLOGY METHOD 03/02/2025 11:36 AM EDT [facility] MPV 10.2 8.8 - 12.5 fL LAB HEMATOLOGY METHOD 03/02/2025 11:36 AM EDT [facility] nRBC 0.0 <=0.0 per 100 WBCs LAB HEMATOLOGY METHOD 03/02/2025 11:36 AM EDT [facility] Differential Type Automated LAB HEMATOLOGY METHOD 03/02/2025 11:36 AM EDT [facility] Neutrophils % 89 % LAB HEMATOLOGY METHOD 03/02/2025 11:36 AM EDT [facility] Lymphocytes % 3 % LAB HEMATOLOGY METHOD 03/02/2025 11:36 AM EDT [facility] Monocytes % 5 % LAB HEMATOLOGY METHOD 03/02/2025 11:36 AM EDT [facility] Eosinophils % 0 % LAB HEMATOLOGY METHOD 03/02/2025 11:36 AM EDT [facility] Basophils % 0 % LAB HEMATOLOGY METHOD 03/02/2025 11:36 AM EDT [facility] Immature Granulocytes % 3 % LAB HEMATOLOGY METHOD 03/02/2025 11:36 AM EDT [facility] Neutrophils Absolute 17.37(H) 1.60 - 6.10 10*3/uL LAB HEMATOLOGY METHOD 03/02/2025 11:36 AM EDT [facility] Lymphocytes Absolute 0.52(L) 1.20 - 3.90 10*3/uL LAB HEMATOLOGY METHOD 03/02/2025 11:36 AM EDT [facility] Monocytes Absolute 0.99(H) 0.30 - 0.90 10*3/uL LAB HEMATOLOGY METHOD 03/02/2025 11:36 AM EDT [facility] Eosinophils Absolute 0.00 0.00 - 0.50 10*3/uL LAB HEMATOLOGY METHOD 03/02/2025 11:36 AM EDT [facility] Basophils Absolute 0.04 0.00 - 0.10 10*3/uL LAB HEMATOLOGY METHOD 03/02/2025 11:36 AM EDT [facility] Immature Granulocytes Absolute 0.67(H) 0.00 - 0.06 10*3/uL LAB HEMATOLOGY METHOD 03/02/2025 11:36 AM EDT [facility] Blood Venous blood specimen / Unknown Venipuncture / Unknown 03/02/2025 9:07 AM EDT 03/02/2025 9:21 AM EDT [facility] - 03/02/2025 11:36 AM EDT Therapeutic decision making should be based on absolute values, rather than percentages. us Maninder Zhang MD LAB BLOOD ORDERABLES Final Resul t [facility] [address] [place] [address] documented in this encounter Visit Diagnoses Diagnosis Malignant neoplasm of upper lobe of left lung (CMS/HCC) documented in this encounter Additional Health Concerns Assessment Noted Time A fall risk assessment has been complete d for the patient 03/02/2025 10:44 AM EDT A Body Mass Index follow-up plan has been documented for the patient 03/02/2025 6:30 PM EDT documented as of this encounter Care Teams Pottery Decoration Designer Relationship Specialty Start Date End Date Constantine Stiles APRN [address] [phone] PCP - General 01/21/23 Farhat Gómez MD 800 [facility] [address] [place] [address] Consulting Physician Radiation Oncology 10/27/24 documented as of this encounter
--- OUTSIDE RECORDS SUMMARY | 2025-03-02 09:00 | XMS_ITS | Encounter Summary ---
Author Organization Healthcare Address [address] [place] [address] Care Team Providers Care Customer Retention Specialist Name Role Phone Constantine Stiles APRN Primary Care Provider [phone] Farhat Gómez MD Unavailable Reason for Visit * Reason Comments Follow-up * Episode Based Medications (Routine) - Authorized Specialty Diagnoses / Procedures Referred By Contmanjula t Referred To Contact Diagnoses Malignant neoplasm of upper lobe of left lung (CMS/HCC) Procedures Pembrolizumab / PACLitaxel / CARBOplatin Every 21 Days Maninder Zhang MD [address] [address] Phone: tel: fax: Maninder Zhang MD [address] [address] Phone: tel: fax: Referral ID Status Reason Start Date Expiration Date V isits Requested Visits Authorized [id number] Authorized 01/19/2025 07/21/2026 1 4 Encounter Details Date Type Department Care Team (Late st Contact Info) Description 03/02/2025 9:00 AM EDT Office Visit Pav [facility] Head[facility] Neck [facility] Respiratory [address] [place] [address] Maninder Zhang MD 800 [facility] [address] [place] [address] Malignant neoplasm of upper lobe [...] : 1965 REFERRING PHYSICIAN: Maninder Zhang MD [address] [place] [address] [address] Encounter Date: 03/02/2025 Patient Care Team: Constantine [...] 3, CN II-XII intact. Motor 5/5 in doughnut glazier, bicep, tricep, dorsi/plantar flexors. affect appropriate, memory [...] FDA-approved test, with diseaseprogression on or after [place]-containing chemotherapy. Patients with EGFR or ALK genomic tumor aberrations should have disease progression on FDA-approved therapy for these aberrations prior to rec eiving Pembrolizumab. PD-L1 IHC serves as a complementary diagnostic in regards to other PD-L1/CO-6-hopvzuptyfayigaau (Nivolumab, Atezolizumab, Durvalumab, etc). Expression level: >Negative for PD-L1 expression (TPS less than 1%) >Positive for PD-L1 expression (TPS 1-49%) >Positive for high PD-L1 expression (TPS greater than or equal to 50%) *PD-L1 IHC 22C3 pharmDx is a FDA-approved body shop technician diagnostic for pembrolizumab performed on Dako Dalia Researchis Stainer using formalin-fixed, paraffin imbedded (FFPE) tissue [...] developed by and are performed at the [facility], [address] [place] [address]. All tests reported here, except those addressing [...] disease stability. The cancer was staged at bH9I3R2.Other small nodules will be watched. And his case was also discussed in the multiD conference. However, recent PET on 10/15/24 showed PD with involvement of N2 node on the left. Chemoradiation was started on 11/17/24. 1. Cancer management : Early stage lung cancer- [id number] 02/2024. -patient was longstanding history of smoking [...] by PCP). 6. Supportive Care Weight loss- Coke Loader consult today (weight trend is DOWN). Anticipated [...] follow-up at that time. Pharmacist Attestation: Chrissy Wlels PharmD, OP Clinical Oncology Pharmacist documented in this encounter Plan of Treatment Upcoming Encounters Date Type Department Care Team (Late st Contact Info) Description 03/23/2025 10:30 AM EDT Clinical Support Pav [facility] Head[facility] Neck [facility] Respiratory 800 [facility], [address]nd [place] [address] 03/23/2025 11:00 AM EDT Office Visit Pav [facility] Head[facility] Neck [facility] Respiratory 800 [facility], [address]nd [place] [address] Maninder Zhang MD 800 [facility] Shannan Ramirezrickson [facility] [address] [place] [address] 03/23/2025 12:00 PM EDT Appointment PAV H Infusion [address] [place] [address] documented as of this encounter Visit Diagnoses [...] documented as of this encounter Care Teams Customer Retention Specialist Relationship Specialty Start Date End Date Constantine Stiles APRN [address] [place], [place] [id number] PCP - General 01/21/23 Farhat Gómez MD 800 [facility] [address] [place] [address] Consulting Physician Radiation Oncology 10/27/24 documented as of this encounter
--- OUTSIDE RECORDS SUMMARY | 2025-03-02 10:30 | XMS_ITS | Encounter Summary ---
Author Organization [facility] Address [address] [place] [address] Care Team Providers Care Academic Affairs Director Name Role Phone Constantine Stiles APRN Primary Care Provider [phone] Farhat Gómez MD Unavailable Reason for Visit * Episode Based Medications (Routine) - Authorized Specialty Diagnoses / Procedures Referred By Contmanjula t Referred To Contact Diagnoses Malignant neoplasm of upper lobe of left lung (CMS/HCC) Procedures Pembrolizumab / PACLitaxel / CARBOplatin Every 21 Days Maninder Zhang MD [address] [address] Phone: tel: fax: Maninder Zhang MD [address] [address] Phone: tel: fax: Referral ID Status Reason Start Date Expiration Date V isits Requested Visits Authorized [id number] Authorized 01/19/2025 07/21/2026 1 4 Encounter Details Date Type Department Care Team (Latest Contact Info) Description 03/02/2025 10:30 AM EDT - 03/02/2025 11:20 AM EDT Hospital Encounter P[facility] H Infusion [address] [place] [address] Malignant neoplasm of upper lobe of left [...] drink = 0.6 oz pur e alcohol) Humiliation, Afraid, Rape, and Kick questionnair e Answer Date Recorded Within the last year, have y ou been afraid of your partner or ex-partner? No 03/09/2025 Within the last year, have y ou been humiliated or emotionally abused in other ways by your partner or ex-partner? No Within the last year, have y ou been kicked, hit, slapped, or otherwise physically hurt by your partner or ex-partner? No 03/09/2025 Within the last year, have y ou been raped or forced to have any kind of sexual activity by your partner or ex-partner? No 03/09/2025 AUDIT-C Answer Date Recorded Q1: How often do you have a drink containing alcohol? Never 03/02/2025 Q2: How many drinks containi ng alcohol do you have on a typical day when you are drinking? Patient does not drink Q3: How often do you have si x or more drinks on one occasion? Never 03/02/2025 Hunger Vital Sign Answer Date Recorded Within the past 12 months, y ou worried that your food would run out before you got the money to buy more. Never true 03/09/20 Within the past 12 months, t he food you bought just didn't last and you didn't have money to get more. Never true 03/09/2025 PRAPARE - Transportation Answer Date Re corded In the past 12 months, has l ack of transportation kept you from medical appointments or from getting medications? No 02/14 In the past 12 months, has l ack of transportation kept you from meetings, work, or from getting things needed for daily living? No 03/09/2025 Housing Stability Vital Sign Answer Diogenes e Recorded In the last 12 months, was t here a time when you were not able to pay the mortgage or rent on time? No 03/09/2025 Number of Times Moved in the Last Year Not on fi le 03/09/2025 At any time in the past 12 m [facility], were you homeless or living in a group home (including now)? No 03/09/2025 CAGE ASSESSMENT Answer Date Recorded Cage unable to access Not on file 03/09/2025 Cage max number of drinks Not on file 2024 Cage Beverages a week Not on file 03/09/2025 Have you ever felt you should CUT down on your d rinking? 0 03/09/2025 Have you been ANNOYED by people criticizing your drinking? 0 03/09/2025 Have you felt GUILTY about your drinking? 0 03/09/2025 Have you had a drink first t ashanti in the morning (EYE-BIOLOGICS SPECIALIST) to steady your nerves or to get rid of a hangover? 0 03/09/2025 CAGE Questionnaire Score 0 025 Sex and Gender Information Value Date Recorded Sex Assigned at Not on file Legal Sex Male 10:53 AM EDT Gender Identity Not on file Sexual Orientation Not on file documented as of this encounter Last Filed Vital Signs Vital Sign Reading Time Taken Comments Blood Pressure 99/67 03/02/2025 6:54 PM EDT Pulse 77 03/02/2025 6:54 PM EDT Temperature 36.7 C (98 F) 03/02/2025 6:54 PM EDT Respiratory Rate 18 03/02/2025 6:54 PM EDT Oxygen Saturation 95% 03/02/2025 6:54 PM EDT Inhaled Oxygen Concentration - - Weight 58.9 kg (129 lb 13.6 oz) 025 10:42 AM EDT Height 175.3 cm (5' 9 ) 03/02/2025 10:4 2 AM EDT Body Mass Index 19.18 03/02/2025 10:42 AM EDT documented in this encounter Functional [...] Kristine Lewis documented as of this encounter Medications at [...] Pav [facility] Head[facility] Neck [facility] Respiratory 800 [facility], [address]nd [place] [address] 03/23/2025 11:00 AM EDT Office Visit Pav CC Head[facility] Neck & Respiratory 800 [facility], [address]nd [place] [address] Maninder Zhang MD 800 [facility] Shannan Dubois [facility] Robin [address] [place] [address] 03/23/2025 12:00 PM EDT Appointment P[facility] H Infusion [address] [place] [address] documented as of this encounter Procedures Procedure Name Priority Date/Time Associated Diagnosis Comments TRANSFUSE RED BLOOD CELLS Routine 03/02/2025 4:50 PM EDT Malignant neoplasm of upper lobe of left lung (CMS/HCC) PREPARE RBC Routine 03/02/2025 12:29 PM EDT Malignant neoplasm of upper lobe of left lung (CMS/HCC) TYPE AND SCREEN Routine 03/02/2025 12:00 PM EDT documented in this encounter Results * Transfuse RBC (03/02/2025 6:58 PM EDT) Maninder Zhang MD BLOOD TRANSFUSION ORDERABLES Fin al Result * Transfuse RBC: 1 Units (03/02/2025 6:58 PM EDT) Maninder Zhang MD BLOOD TRANSFUSION ORDERABLES Fin al Result * Prepare Leukocyte Reduced RBC: 1 Units (03/02/2025 12:29 PM EDT) Product Code [id number] BLOO D BANK Dispense Status Transfused BLOOD BANK Blood Expiration Date [id number] BLOOD BANK Unit Number [id number] B LOOD BANK Product Blood Type 6200 BLOOD BANK Blood Type A+ BLOOD BANK Crossmatch Compatible BLOOD BANK Other Maninder Zhang MD BLOOD BANK PRODUCT ORDERABLES Fi nal Result Performing Organization Address City/State/[facility] Co de Phone Number BLOOD BANK [address] [place] [address], * Type and Screen (03/02/2025 12:00 PM EDT) ABO/Rh A Positive 03/02/2025 10:53 AM EDT BLOOD BANK Antibody Screen Negative 03/02/2025 10:53 AM EDT BLOOD BANK Specimen Expiration 03/05/2025 23:59 03/02/2025 10:53 AM EDT BLOOD BANK Blood Venous blood specimen / Unknown Venipuncture / Unknown 03/02/2025 12:00 PM EDT 03/02/2025 12:08 PM EDT Maninder Zhang MD LAB BLOOD BANK TEST ORDERABLES F inal Result BLOOD BANK [address] [place] [address], documented in this encounter Visit Diagnoses Diagnosis Malignant neoplasm of upper lobe of left lung (CMS/HCC)- Primary documented in this encounter Administered Medications Inactive Administered Medications - up to 3 most recent administrations Medication Order MAR Action Action Date Dose Rate Site CARBOplatin (Paraplatin) 660 mg in sodium chloride 0.9 % 250 mL IVPB 660 mg (Target AUC = 6), Intravenous, at 722 mL/hr, Administer over 30 Minutes, Once, Hazardous Drug-Tier 1 Precautions. Dispose in BLACK Hazardous Waste Container. Chemotherapy: refer to [id number]., On Fri03/02/25 at 1530, For 1 doseIndications:Malignant neoplasm of upper lobe of left lung (CMS/HCC) New Bag 03/02/2025 4:18 PM EDT 660 mg 722 mL/hr cetirizine (ZyrTEC) tablet 10 mg 10 mg, Oral, Once, 1 dose, On Fri03/02/25 at 1200, RoutineIndications:Malignant neoplasm of upper lobe of left lung (CMS/HCC) Given 03/02/2025 12:04 PM EDT 10 mg dexamethasone (Decadron) tablet 12 mg 12 mg, Oral, Once, 1 dose, On Fri03/02/25 at 1200, RoutineIndications:Malignant neoplasm of upper lobe of left lung (CMS/HCC) Given 03/02/2025 12:04 PM EDT 12 mg famotidine (Pepcid) tablet 20 mg 20 mg, Oral, Once, 1 dose, On Fri03/02/25 at 1200, RoutineIndications:Malignant neoplasm of upper lobe of left lung (CMS/HCC) Given 03/02/2025 12:05 PM EDT 20 mg fosaprepitant (Emend) 150 mg in sodium chloride 255 mL IVPB 150 mg, Intravenous, Once, 1 dose, On Fri03/02/25 at 1200, Administer over 30 Minutes, RoutineIndications:Malignant neoplasm of upper lobe of left lung (CMS/HCC) New Bag 03/02/2025 12:10 PM EDT 150 mg 560 mL/hr ondansetron ODT (Zofran-ODT) disintegrating tablet 16 mg 16 mg, Oral, Once, 1 dose, On Fri03/02/25 at 1200, RoutineIndications:Malignant neoplasm of upper lobe of left lung (CMS/HCC) Given 03/02/2025 12:05 PM EDT 16 mg PACLitaxel (Taxol) 312 mg in sodium chloride 0.9 % 500 mL IVPB 312 mg (rounded from 309.6 mg = 180 mg/m2 1.72 m2 Treatment Plan BSA from Recorded weight), Intravenous, at 205.7 mL/hr, Administer over 3 Hours, Once, Hazardous Drug-Tier 1 Precautions. Dispose in BLACK Hazardous Waste Container. Use 0.2 micron filter. Chemotherapy: refer to [id number]., On Fri03/02/25 at 1230, For 1 doseIndications:Malignant neoplasm of upper lobe of left lung (CMS/HCC) New Bag 03/02/2025 1:15 PM EDT 312 mg 205.7 mL/hr pembrolizumab (Keytruda) 200 mg in sodium chloride 0.9% 100 mL IVPB 200 mg, Intravenous, at 276 mL/hr, Administer over 30 Minutes, Once, Filter Required. Use 0.2 micron filter., On Fri03/02/25 at 1200, For 1 dose, In 100 mL NSIndications:Malignant neoplasm of upper lobe of left lung (CMS/HCC) New Bag 03/02/2025 12:41 PM EDT 200 mg 276 mL/hr documented in this encounter Additional Health Concerns Assessment Noted Time A fall risk assessment has been complete d for the patient 03/02/2025 10:44 AM EDT A Body Mass Index follow-up plan has been documented for the patient 03/02/2025 6:30 PM EDT documented as of this encounter Care Teams Academic Affairs Director Relationship Specialty Start Date End Date Constantine Stiles APRN [address] [place] [address] PCP - General 01/21/23 Farhat Gómez MD [address] [place] [address] Consulting Physician Radiation Oncology 10/27/24 documented as of this encounter
--- OUTSIDE RECORDS SUMMARY | 2025-03-02 11:21 | XMS_ITS | Encounter Summary ---
Author Organization [facility] Address [address] [place] [address] Care Team Providers Care Choir Singer Name Role Phone Constantine Stiles APRN Primary Care Provider [phone] Farhat Gómez MD Unavailable Reason for Visit * Episode Based Medications (Routine) - Authorized Specialty Diagnoses / Procedures Referred By Contmanjula t Referred To Contact Diagnoses Malignant neoplasm of upper lobe of left lung (CMS/HCC) Procedures General Blood Administration for Outpatient (One Time) Maninder Zhang MD [address] [facility] Shannan Dubois [address] [address] Phone: tel: fax: Maninder Zhang MD [address] [address] Phone: tel: fax: Referral ID Status Reason Start Date Expiration Date V isits Requested Visits Authorized [id number] Authorized 03/02/2025 09/01/2026 1 1 Encounter Details Date Type Department Care Team (Latest Contact Info) Description 03/02/2025 11:21 AM EDT - 03/02/2025 11:59 PM EDT Hospital Encounter [facility] [address] [place] [address] Malignant neoplasm of upper lobe of left [...] any time in the past 12 m [facility], were you homeless or living in a long-term (including now)? No 03/09/2025 CAGE ASSESSMENT Answer [...] Have you had a drink first t asahnti in the morning (EYE-DIESEL ENGINEER) to steady your nerves or to get [...] [facility] [address] [facility]nd [place] [address] 03/23/2025 11:00 AM EDT Office Visit [facility] [address] [facility] [place] [address] Maninder Zhang MD 800 [facility] [address] [place] [address] 03/23/2025 12:00 PM EDT Appointment [facility] [address] [place] [address] documented as of this encounter Visit Diagnoses [...] documented as of this encounter Care Teams Choir Singer Relationship Specialty Start Date End Date Constantine Stiles APRN [address] [place], [place] [id number] PCP - General 01/21/23 Farhat Gómez MD [address] [facility] [address] [place] [phone] Consulting Physician Radiation Oncology 10/27/24 documented as of this encounter
--- OUTSIDE RECORDS SUMMARY | 2025-03-08 16:56 | XMS_ITS | Encounter Summary ---
Author Organization [facility] Address [address] [place] [address] Care Team Providers Care Car Racer Name Role Phone Constantine Stiles APRN Primary Care Provider [phone] Farhat Gómez MD Unavailable Reason for Referral * Consultation (Routine) - Authorized Specialty Diagnoses / Procedures Referred By Contac t Referred To Contact Family Medicine Diagnoses Pneumonia of both lungs due to infectious organism, unspecified part of lung Squamous cell carcinoma of left lung Pooja Flowers MD [address] [place] [address] Phone: tel: fax: Referral ID Status Reason Start Date Expiration Date V isits Requested Visits Authorized [id number] Authorized 03/16/2025 09/15/2026 1 1 * Consultation (Routine) - Authorized Specialty Diagnoses / Procedures Referred By Contac t Referred To Contact Occupational Therapy Diagnoses Generalized weakness Pooja Flowers MD [address] [place] [address] Phone: tel: fax: Referral ID Status Reason Start Date Expiration Date Visits Requested Visits Authorized [id number] Authorized Consult and Treat 03/16/2025 09/15/2026 1 1 * Consultation (Routine) - Authorized Specialty Diagnoses / Procedures Referred By Contac t Referred To Contact Physical Therapy Diagnoses Generalized weakness Pooja Flowers MD [address] [place] [address] Phone: tel: fax: Referral ID Status Reason Start Date Expiration Date Visits Requested Visits Authorized [id number] Authorized Consult and Treat 03/16/2025 09/15/2026 1 1 * Home Health (Routine) - Authorized Specialty Diagnoses / Procedures Referred By Contac t Referred To Contact Home Health Services Diagnoses Pneumonia of both lungs due to infectious organism, unspecified part of lung Pooja Flowers MD [address] [place] [address] Phone: tel: fax: Referral ID Status Reason Start Date Expiration Date Visits Requested Visits Authorized [id number] Authorized Specialty Services Required 03/15/2025 09/14/2026 999 999 * Home Health (Routine) - Authorized Specialty Diagnoses / Procedures Referred By Contac t Referred To Contact Home Health Services / Case Management Diagnoses Pneumonia of both lungs due to infectious organism, unspecified part of lung Acute on chronic respiratory failure with hypoxia Kusum Barrera DO [address] [place] [address] Phone: tel: fax: CASE MANAGEMENT [address] [place] [phone] Phone: tel: Referral ID Status Reason Start Date Expiration Date Visits Requested Visits Authorized [id number] Authorized Specialty Services Required 03/12/2025 09/11/2026 999 999 Reason for Visit * Auth/Cert (Routine) Specialty Diagnoses / Procedures Referred By Contac t Referred To Contact Diagnoses Pneumonia of both lower lobes due to infectious organism PANCYTOPENIA, SYMPTOMATIC ANEMIA, PNA Margarito Hansen DO [address] [place] [address] Phone: tel: fax: [facility] Emergency Department [address] [place] [address] Phone: tel: Referral ID Status Reason Start Date Expiration Date Visits Re quested Visits Authorized [id number] 1 1 Encounter Details Date Type Department Care Team (Latest Contact Info) Description 03/08/2025 4:56 PM EDT - 03/16/2025 4:48 PM EDT Hospital Encounter [facility] [address] [place] [address] Kayleigh Carter MD [address] [place] [address] Margarito Hansen, DO [address] [place] [address] Kusum Barrera, DO [address] [place] [address] Pooja Flowers MD [address] [place] [address] Pneumonia of both lungs due to infectious organism, unspecified part of lung (Primary Dx); Pancytopenia; Squamous cell carcinoma of left lung; Acute on chronic respiratory failure with hypoxia; Generalized weakness Discharge Disposition: Home or Self Care Social [...] any time in the past 12 m [facility], were you homeless or living in a intermediate (including now)? No 03/09/2025 CAGE ASSESSMENT Answer [...] drink first t ashanti in the morning (EYE-GREEN BELT) to steady your nerves or to get [...] Sign Reading Time Taken Comments Blood Pressure 103/65 03/16/2025 4:03 PM EDT Pulse 103 03/16/2025 4:03 PM EDT Temperature 36.9 C (98.4 F) 03/16/2025 4:03 PM EDT Respiratory Rate 16 03/16/2025 4:03 PM EDT Oxygen Saturation 92% 03/16/2025 4:03 PM EDT Inhaled Oxygen Concentration - - Weight 58.3 kg (128 lb 8.5 oz) 03/16/2025 9:00 A M EDT Height 175.3 cm (5' 9.02 ) 03/08/2025 5:04 PM ED T Body Mass Index 18.97 03/08/2025 5:04 PM EDT documented in this encounter Functional Status * Calculated C-SSRS Risk Score (Lifetime/Recent) Answer Date of Assessment Author No Risk Indicated 03/16/2025 8:00 AM EDT Jovana Grady * Question Answer Date of Assessment Author 1. Wish to be (Past 1 Month) No 025 8:00 AM EDT Jovana Grady 2. Non-Specific Active Suici ester Thoughts (Past 1 Month) No 03/16/2025 8:00 AM EDT Donna Grady sa 6. Suicidal Behavior (Lifetime) No 8:00 AM EDT Jovana Grady documented as of this encounter Medications at Time of Discharge acetaminophen (Tylenol) 325 MG tablet Take 2 tablets by mouth every 6 hours as needed for pain, fever or headaches. Under [place] law, monthly prescriptions (30 days) can be refilled at 25 days and three-month prescriptions (90 days) at 80 days. Please contact the insurance company with questions if refills are denied. 03/16/2025 albuterol 108 (90 Base) MCG/ACT inhaler Inhale 2 puffs every 6 hours as needed for wheezing or shortness of breath. 02/10/2024 cyclobenzaprine (Fexmid) 7.5 MG tablet Take 1 tablet by mouth 3 times a day as needed for muscle spasms. 15 tablet 03/16/2025 docusate sodium (Colace) 100 MG capsule Take 1 capsule by mouth daily. 01/06/2025 gabapentin (Neurontin) 800 MG tablet Take 1 tablet by mouth 3 times a day. 11/03/2024 guaiFENesin (MUCINEX PO) Take by mouth 2 times a day as needed. hydrOXYzine pamoate (Vistaril) 25 MG capsule Take 1 capsule by mouth every 6 hours as needed for anxiety. 15 capsule 03/16/2025 5 mometasone-formo terol (Dulera 200) 200-5 MCG/ACT inhaler Inhale 2 puffs 2 times a day. Rinse mouth with water after use to reduce aftertaste and incidence of candidiasis. Do not swallow. 13 g 11 03/16/2025 5 OLANZapine (ZyPREXA) 5 MG tablet Take 0.5 tablets by mouth nightly. 15 tablet 01/12/2025 ondansetron (Zofran) 8 MG tabletIndication s:Malignant neoplasm of upper lobe of left lung (CMS/HCC) Take 1 tablet by mouth in the morning and 1 tablet before bedtime. Take for two days, starting the day after chemotherapy and then take PRN. 30 tablet 5 12/20/2024 oxyCODONE-acetam inophen (Percocet) 5-325 MG tablet Take 1 tablet by mouth every 8 hours as needed for severe pain. 20 tablet 03/16/2025 oxygen (O2) gas Inhale 2 L/min continuously at 120,000 mL/hr. via nasal canula pantoprazole (Protonix) 40 MG EC tablet Take 1 tablet by mouth daily. Do not crush, chew, or split. 30 tablet 03/17/2025 5 polyethylene glycol (Miralax) 17 GM/SCOOP powder Take 17 g by mouth daily as needed. prochlorperazine (Compazine) 10 MG tabletIndication s:Malignant neoplasm [...] nausea or vomiting. 30 tablet 5 01/12/2025 sodium chloride-sodium bicarbonate (Salt/Soda) oral rinse Swish and spit 44 g 4 times a day as needed for mucositis (mucositis prevention). 44 g 03/16/2025 tamsulosin (Flomax) 0.4 MG 24 hr capsule Take by mouth daily. 01/06/2025 Vraylar 1.5 MG capsule Take 1 capsule by mouth daily. 03/09/2024 documented as of this encounter Miscellaneous Notes * Assessment & Plan Note - Fco Garcia MD - 03/16/2025 1:16 PM EDT Associated Problem(s): Squamous cell carcinoma of left lung Described as early stage lung cancer in most recent oncology note dated 03/02/2025. New lung nodule in ROSENDO is FDG avid per PET scan and mediastinal adenopathy. Plan per 03/02 note is continue C3 carbo/taxol/pembro. No updates since admission. This illness poses a threat to life and bodily function. I spoke with Bryson, his Dulce and sister Lisa(via phone). Bryson had expressed to them thathe wants to go home. They are all worried that he has become to weak to be able to continue cancer treatment. I share that worry. There has been no comment thus far from oncology this admission to address treatment options. Bryson confirmed that he wants to go home. Given his diagnosis and prognosis I presented to him that going home would mean not continuing IV antibiotics. Having hospice care. If he continues to decline then he will and that will happen at home with comfort and dignity. We discussed the other option which is to remain in hospital, continue treatment of pneumonia. If pneumonia resolves then get rehab with the hope of becoming strong enough to have more cancer treatments. I shared with him that if he stays in hospital he may become sicker and may become to sick to get home. He told me that although he wants to go home he prefers to remain in hospital and get the treatmenthis doctors think he needs to try and cure his pneumonia and then get strong enough to have more chemo if he is now to weak to get more chemo. We discussed decisions about code status. Bryson told me he would not want resuscitation or intubation if he has sudden cardiac in hospital. I educated him about DNR/DNI status and he voiced understanding and agreement with having same placed on his chart. 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 is a 59 y.o. male presenting with dyspnea and fatigue. Found to have acute pneumonia. Now hospital day 8. His voiced concern to hospital medicine that Bryson is to weak to get more chemo. Hospital medicine suggested palliative consult and we are asked to discuss options. Chart reviewed and thus far no evaluation from oncology with opinion about treatment options. Medical/Surgical/Social/Family History I have reviewed and updated the patient history. Code Status at Initial Consult Full Code Review of Systems: Review of Systems Unless otherwise listed all systems negative except as per HPI or Assessment and Plan. Physical Exam Physical Exam Vitals Blood pressure 112/65, pulse (!) 112, temperature 37.6 ??C (99.6 ??F), temperature source Oral, resp. rate 18, height 1.753 m (5' 9.02 ), weight 58.3 kg (128 lb 8.5 oz), SpO2 96%. Results Review {Vanishing Link Review Results :[id number] I have reviewed the latest lab and imaging results. Medications Current Scheduled Medications[1] Current PRN Medications[2] Palliative Care Actions Disease state education, Prognosis discussion, Treatment preferences discussed, and Code status changed to DNR/DNI Assessment & Plan Acute on chronic respiratory failure with hypoxia Malignant neoplasm of upper lobe of left lung (CMS/HCC) Pneumonia of both lungs due to infectious organism Pancytopenia due to chemotherapy (CMS/HCC) Squamous cell carcinoma of left lung Described as early stage lung cancer in most recent oncology note dated 03/02/2025. New lung nodule in ROSENDO is FDG avid per PET scan and mediastinal adenopathy. Plan per 03/02 note is continue C3 carbo/taxol/pembro. No updates since admission. This illness poses a threat to life and bodily function. I spoke with Bryson, his Dulce and sister Lisa(via phone). Bryson had expressed to them thathe wants to go home. They are all worried that he has become to weak to be able to continue cancer treatment. I share that worry. There has been no comment thus far from oncology this admission to address treatment options. Bryson confirmed that he wants to go home. Given his diagnosis and prognosis I presented to him that going home would mean not continuing IV antibiotics. Having hospice care. If he continues to decline then he will and that will happen at home with comfort and dignity. We discussed the other option which is to remain in hospital, continue treatment of pneumonia. If pneumonia resolves then get rehab with the hope of becoming strong enough to have more cancer treatments. I shared with him that if he stays in hospital he may become sicker and may become to sick to get home. He told me that although he wants to go home he prefers to remain in hospital and get the treatmenthis doctors think he needs to try and cure his pneumonia and then get strong enough to have more chemo if he is now to weak to get more chemo. We discussed decisions about code status. Bryson told me he would not want resuscitation or intubation if he has sudden cardiac in hospital. I educated him about DNR/DNI status and he voiced understanding and agreement with having same placed on his chart. Recommendations: -continue life sustaining treatments in hospital. Palliative care will be available to have further discussion to address complex medical decisions if needed. -DNR/DNI status placed. I have communicated with Dr. Flowers via secure chat to coordinate management and spoke with his RN Jovana in person on unit to obtain additional history. [1] cariprazine, 1.5 mg, Oral, Daily enoxaparin, 40 mg, Subcutaneous, Daily famotidine, 20 mg, Oral, BID gabapentin, 800 mg, Oral, TID glycopyrrolate, 1 mg, Oral, BID guaiFENesin, 600 mg, Oral, BID lidocaine, 1 patch, Apply externally, q24h melatonin, 6 mg, Oral, Nightly mometasone-formoterol, 2 puff, Inhalation, BID pantoprazole, 40 mg, Oral, Daily polyethylene glycol, 17 g, Oral, Daily senna, 2 tablet, Oral, BID Insert peripheral IV, , , Once AND Saline lock IV, , , Once AND sodium chloride, 10 mL, Intravenous, q12h AND sodium chloride, 10 mL, Intravenous, PRN tamsulosin, 0.4 mg, Oral, Daily with dinner [2] acetaminophen, 650 mg, Oral, q6h PRN albuterol, 2 puff, Inhalation, q6h PRN calcium carbonate, 500 mg, Oral, 4x daily PRN cyclobenzaprine, 7.5 mg, Oral, TID PRN gi cocktail, 30 mL, Oral, 4x daily PRN HYDROmorphone, 0.25 mg, Intravenous, q4h PRN hydrOXYzine pamoate, 25 mg, Oral, q6h PRN ipratropium-albuterol, 3 mL, Nebulization, q6h PRN ondansetron ODT, 4 mg, Oral, q6h PRN OR ondansetron, 4 mg, Intravenous, q6h PRN OR ondansetron, 4 mg, Oral, q6h PRN oxyCODONE, 5 mg, Oral, q4h PRN OR oxyCODONE, 10 mg, Oral, q4h PRN Insert peripheral IV, , , Once AND Saline lock IV, , , Once AND sodium chloride, 10 mL, Intravenous, q12h AND sodium chloride, 10 mL, Intravenous, PRN sodium chloride-sodium bicarbonate, 15 mL, Swish & Spit, 4x daily PRN * Progress Notes - Abbey Conti RN - 03/16/2025 12:38 PM EDT Case Management Discharge Note Bryson Teixeira Jr. 59 y.o. male CSN: [id number] Admission: 03/08/2025 4:56 PM Primary Problem: Acute on chronic respiratory failure with hypoxia Primary Qualitative Researcher: Mliagro Primary Caregiver: Self Assistance Available at Discharge: Current Outpatient/Agency/Support Group: other (see comments) Availability of Care Givers (#Hours): 24 hours Family/Qualitative Researcher(s) Willingness Assessed to care for patient at home: Yes Family/Qualitative Researcher(s) Readiness Assessed to care for patient at home: Yes Housing Circumstances-Z Codes: Housing Circumstances (select all that apply): Low Income (101-300% Federal Poverty Guidlines) - Z596 Patient Referred to Financial or Community Resources: n/a Discharge Facility/Level of Care Needs: PT/OT Discharge Recommendations: Home with assistance, Homehealth PT, Home health OT Equipment Recommended: Rolling walker. Discharge Facility/Level of Care Needs: 1-Home or Self Care Patient/Family Anticipated Services at Transition: home with assistance. Home health referral sent and declined follow. Insurance not in network with agency. Provided PT/OT non [facility] ambulatory script to his . Patient/Family Anticipated Services at Transition: other (see comments) DME/Equipment Needed after Discharge: [employer] for rolling walker and bedside commode. Equipment Currently Used at Home: walker, rolling, oxygen Equipment Needed After Discharge: oxygen Current DME: [facility] ( phone [phone] ). 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 [facility] [address] [facility] [facility] [address] Office Visit with Maninder Zhang MD Friday 11:00 AM (Arrive by 10:40 AM) Please bring any insurance information and a copayment if required by your insurance company. [facility] [address] [facility] [facility] [address] Infusion Friday 12:00 PM Please bring any insurance information and a copayment if required by your insurance company. [facility] [address] [facility] [address] Discharge Transportation: sister Lisa Transportation Anticipated: family or friend will provide Transportation Home at Discharge: Family/Friend will Provide Follow Up Transport: sister Lisa Transportation Needed to Follow up Appoinments: Family/Friend will Provide Additional Comments: per team, medically ready for discharge. [id number] enrollment complete. Abbey Conti RN * Care Plan - Jovana Grady - 03/16/2025 11:17 AM EDT Problem: Adult Inpatient Plan of Care Goal: Plan of Care Review Outcome: Ongoing, Progressing Flowsheets (Taken 03/16/2025 1113) Progress: improving Plan of Care Reviewed With: spouse patient Goal: Patient-Specific Goal (Individualized) Outcome: Ongoing, Progressing Goal: Absence of Hospital-Acquired Illness or Injury Outcome: Ongoing, Progressing Intervention: Identify and Manage Fall Risk Flowsheets (Taken 03/16/2025 1113) Safety Promotion/Fall Prevention: activity supervised clutter-free environment maintained fall prevention program maintained Intervention: Prevent Skin Injury Flowsheets (Taken 03/16/2025 1113) Body Position: weight shifting Intervention: Prevent and Manage VTE (Venous Thromboembolism) Risk Flowsheets (Taken 03/16/2025 1113) VTE Prevention/Management: medication Intervention: Prevent Infection Flowsheets (Taken 03/16/2025 1113) Infection Prevention: environmental surveillance performed rest/sleep promoted Goal: Optimal Comfort and Wellbeing Outcome: Ongoing, Progressing Intervention: Monitor Pain and Promote Comfort Flowsheets (Taken 03/16/2025 111) Pain Management Interventions: medication (see MAR) pillow support provided position adjusted Intervention: Provide Person-Centered Care Flowsheets (Taken 03/16/2025 111) Trust Relationship/Rapport: care explained choices provided emotional support provided questions answered Goal: Readiness for Transition of Care Outcome: Ongoing, Progressing Intervention: Mutually Develop Transition Plan Flowsheets (Taken 03/16/2025 111) Discharge Facility/Level of Care Needs: 1-Home or Self Care Equipment Needed After Discharge: oxygen Equipment Currently Used at Home: walker, rolling oxygen Current Outpatient/Agency/Support Group: other (see comments) Anticipated Changes Related to Illness: none Transportation Anticipated: family or friend will provide Outpatient/Agency/Support Group Needs: clinic(s) Transportation Concerns: none Concerns to be Addressed: discharge planning Readmission Within the Last 30 Days: no previous admission in last 30 days Patient/Family Anticipated Services at Transition: other (see comments) Patient/Family Anticipates Transition to: home with family * Care Plan - Malaika Eden RN - 03/15/2025 7:50 PM EDT Problem: Adult Inpatient Plan of Care Goal: Plan of Care Review Outcome: Ongoing, Progressing Flowsheets (Taken 03/15/20251946) Progress: no change Plan of Care Reviewed With: patient Goal: Patient-Specific Goal (Individualized) Outcome: Ongoing, Progressing Flowsheets (Taken 03/15/20251946) Patient/Family-Specific Goals (Include Timeframe): pt will report decreased pain an hour after recieving pain medicine Individualized Care Needs: pain management Anxieties, Fears or Concerns: pain Goal: Absence of Hospital-Acquired Illness or Injury Outcome: Ongoing, Progressing Goal: Optimal Comfort and Wellbeing Outcome: Ongoing, Progressing Goal: Readiness for Transition of Care Outcome: Ongoing, Progressing Intervention: Mutually Develop Transition Plan Flowsheets Taken 03/14/20251938 by Malaika Eden RN Equipment Currently Used at Home: oxygen Current Outpatient/Agency/Support Group: support group(s) Concerns to be Addressed: discharge planning Readmission Within the Last 30 Days: no previous admission in last 30 days Taken 03/11/2025 1408 by Abbey Conti fire manager Facility/Level of Care Needs: 1-Home or Self Care Transportation Anticipated: family or friend will provide Outpatient/Agency/Support Group Needs: clinic(s) Transportation Concerns: none Current Discharge Risk: chronically ill Patient/Family Anticipates Transition to: home with family Taken 03/09/20251999 by Naomy Ivy RN Equipment Needed After Discharge: oxygen Problem: Pain Chronic (Persistent) Goal: Optimal Pain Control and Function Outcome: Ongoing, Progressing Intervention: Optimize Psychosocial Wellbeing Flowsheets (Taken 03/15/20251701 by Luz Cervantes, RN) Supportive Measures: active listening utilized decision-making supported Diversional Activities: [employer] Spiritual Activities Assistance: hope instilled Family/Support System Care: caregiver stress acknowledged support provided Intervention: Develop Pain Management Plan Flowsheets (Taken 03/15/20251701 by Luz Cervantes, RN) Pain Management Interventions: medication (see MAR) ambulation/increased activity care clustered emotional support position adjusted Intervention: Manage Persistent Pain Flowsheets Taken 03/15/20251701 by Luz Cervantes RN Bowel Elimination Promotion: adequate fluid intake promoted ambulation promoted Sleep/Rest Enhancement: awakenings minimized natural light exposure provided family presence promoted Medication Review/Management: medications reviewed Taken 03/14/2025951 by Sena Eduardo RN Complementary Therapy: (medication utilized) other (see comments) Problem: Infection Goal: Absence of Infection Signs and Symptoms Outcome: Ongoing, Progressing Intervention: Prevent or Manage Infection Flowsheets (Taken 03/15/20251701 by Luz Cervantes, RN) Infection Management: aseptic technique maintained Fever Reduction/Comfort Measures: fluid intake increased Isolation Precautions: precautions maintained droplet Problem: Pain Acute Goal: Optimal Pain Control and Function Outcome: Ongoing, Progressing Intervention: Optimize Psychosocial Wellbeing Flowsheets (Taken 03/15/20251701 by Luz Cervantes, RN) Supportive Measures: active listening utilized decision-making supported Diversional Activities: [employer] Spiritual Activities Assistance: hope instilled Intervention: Develop Pain Management Plan Flowsheets (Taken 03/15/20251701 by Luz Cervantes, RN) Pain Management Interventions: medication (see MAR) ambulation/increased activity care clustered emotional support position adjusted Intervention: Prevent or Manage Pain Flowsheets Taken 03/15/20251701 by Luz Cervantes, RN Bowel Elimination Promotion: adequate fluid intake promoted ambulation promoted Sleep/Rest Enhancement: awakenings minimized natural light exposure provided family presence promoted Medication Review/Management: medications reviewed Taken 03/14/2025 0952 by Sena Eduardo RN Complementary Therapy: (medication utilized) other (see comments) Problem: Gas Exchange Impaired Goal: Optimal Gas Exchange Outcome: Ongoing, Progressing Intervention: Optimize Oxygenation and Ventilation Flowsheets Taken 03/15/2025 1600 by Luz Cervantes RN Head of Bed (HOB) Positioning: HOB elevated Taken 03/14/20251938 by Malaika Eden RN Airway/Ventilation Management: airway patency maintained calming measures promoted oxygen therapy provided Problem: Wound Goal: Skin Health and Integrity Outcome: Ongoing, Progressing Intervention: Optimize Skin Protection Flowsheets Taken 03/15/20251701 by Luz Cervantes RN Pressure Reduction Techniques: frequent weight shift encouraged heels elevated off bed Pressure Reduction Devices: chair cushion utilized Skin Protection: absorbent pad utilized/changed Taken 03/15/2025 1600 by Luz Cervantes RN Activity Management: activity adjusted per tolerance Head of Bed (HOB) Positioning: HOB elevated Goal: Optimal Wound Healing Outcome: Ongoing, Progressing Intervention: Promote Wound Healing Flowsheets (Taken 03/15/20251701 by Luz Cervantes RN) Sleep/Rest Enhancement: awakenings minimized natural light exposure provided family presence promoted * Care Plan - Luz Cervantes RN - 03/15/2025 5:08 PM EDT Problem: Adult Inpatient Plan of Care Goal: Plan of Care Review 03/15/2025 170 by Luz Cervantes RN Flowsheets (Taken 03/15/2025 170) Progress: no change Outcome Evaluation: pt's oxygen needs will improve prior to discharge Plan of Care Reviewed With: patient 03/15/2025 1152 by Luz Cervantes RN Outcome: Ongoing, Progressing Flowsheets Taken 03/14/20251938 by Malaika Eden RN Progress: no change Plan of Care Reviewed With: patient Taken 03/11/20251941 by Kera Traylor RN Outcome Evaluation: Patient will have no signs of infection by discharge. Goal: Patient-Specific Goal (Individualized) 03/15/2025 1702 by Luz Cervantes RN Flowsheets (Taken 03/15/2025 0800) Patient/Family-Specific Goals (Include Timeframe): pt will report a decrease in pain after PRN medsare given Individualized Care Needs: pain management Anxieties, Fears or Concerns: pain 03/15/2025 1152 by Luz Cervantes, DONNA Outcome: Ongoing, Progressing Flowsheets (Taken 03/15/2025 0800) Patient/Family-Specific Goals (Include Timeframe): pt will report a decrease in pain after PRN medsare given Individualized Care Needs: pain management Anxieties, Fears or Concerns: pain Goal: Absence of Hospital-Acquired Illness or Injury Outcome: Ongoing, Progressing Goal: Optimal Comfort and Wellbeing Outcome: Ongoing, Progressing Goal: Readiness for Transition of Care Outcome: Ongoing, Progressing Intervention: Mutually Develop Transition Plan Flowsheets Taken 03/14/2025 1939 by Malaika Eden RN Equipment Currently Used at Home: oxygen Current Outpatient/Agency/Support Group: support group(s) Concerns to be Addressed: discharge planning Readmission Within the Last 30 Days: no previous admission in last 30 days Taken 03/11/2025 1408 by Abbey Conti RN Discharge Facility/Level of Care Needs: 1-Home or Self Care Transportation Anticipated: family or friend will provide Outpatient/Agency/Support Group Needs: clinic(s) Transportation Concerns: none Current Discharge Risk: chronically ill Patient/Family Anticipates Transition to: home with family Taken 03/09/20251999 by Naomy Ivy RN Equipment Needed After Discharge: oxygen * Progress Notes - Pooja Flowers MD - 03/15/2025 4:31 PM EDT Subjective I saw and evaluated this patient. No acute overnight events. He reports pain in the L arm, no cough, sob no fever Per family pt is intermittently confused I explained the diagnosis of delirium with confusion and counseled re: Day and night orientation and delirium precautions. D/w pt with oncology re: management plan Objective Vitals Temp: [36.3 ??C (97.4 ??F)-37.1 ??C (98.7 ??F)] 37.1 ??C (98.7 ??F) Heart Rate: [85-99] 89 Resp: [17-22] 20 BP: (97-102)/(50-67) 97/67 Physical Exam Vitals reviewed. Constitutional: General: He is not in acute distress. Appearance: Normal appearance. He is ill-appearing (chronically). He is not toxic-appearing. Interventions: Nasal cannula in place. Comments: Lying in bed. HENT: Head: Normocephalic and atraumatic. Eyes: General: No scleral icterus. Conjunctiva/sclera: Conjunctivae normal. Cardiovascular: Rate and Rhythm: Normal rate and regular rhythm. Heart sounds: Normal heart sounds. No murmur heard. No friction rub. No gallop. Pulmonary: Effort: Pulmonary effort is normal. No respiratory distress. Breath sounds: Normal breath sounds. No wheezing or rhonchi. Abdominal: General: Bowel sounds are decreased. There is no distension. Palpations: Abdomen is soft. Tenderness: There is no abdominal tenderness. Musculoskeletal: Right lower leg: No edema. Left lower leg: No edema. Skin: General: Skin is warm and dry. Neurological: General: No focal deficit present. Mental Status: He is alert. Psychiatric: Mood and Affect: Mood normal. Behavior: Behavior normal. Labs in last 18 hours CBC WBC 10.41 (H) Hb 7.4 (L) Plt 61 (L) Hct 23.4 (L) ANC ?? INR ??, PTT ??, Anti-Xa ?? BMP Na ?? Cl ?? BUN ?? Glu ?? K ?? Co2 ?? Cr ?? Ca ?? iCa ?? Mg 2.0, Phos ?? Lactate ?? LFT AST ?? AlkPhos ?? T Prot ?? ALK ?? Bili ?? Alb ?? D.Bili ?? Labs personally reviewed. Significant for anemia, thrombocytopenia, stable renal function. Magnesium mildly low. Flu, COVID, RSV, respiratory viral panel negative. CXR personally reviewed and shows improvement in lower lobe airspace disease. Assessment & Plan Pneumonia of both lungs due to infectious organism Acute on chronic respiratory failure with hypoxia Pancytopenia due to chemotherapy (CMS/HCC) Malignant neoplasm of upper lobe of left lung (CMS/HCC) Squamous cell carcinoma of left lung 59 yo M with PMH of NSCLC, COPD on 2L who was transferred from OSH for pancytopenia and acute on chronic hypoxic respiratory failure. Found to have Strep pneumo pneumonia. On Rocephin. Oxygen requirement improving/stable. # Acute on chronic hypoxic respiratory failure due to Strep pneumo pneumonia - Baseline O2 requirement 2L. Requiring up to 5L on admission. - CXR with bilateral lower lobe airspace disease. - CT PE: negative for PE but showed opacities in lower lobes. - Respiratory viral panel, MRSA nares, Legionella negative. Strep pneumo positive. PLAN: - Continue Rocephin x 7 days (stop date 03/15) due to neutropenia. Consider transition to PO Augmentin, if otherwise stable for discharge, to complete course. - Continue ICS/LABA with scheduled Mucinex and Robinul. - PRN Duonebs and MDI. - Continue supplemental O2, wean as able. Goal O2 sat > 88%. Currently on 3-4L NC. May need increased O2 from baseline for a short time due to poor reserve in the setting of pneumonia. # Elevated LFTs, improving - Unclear etiology. ALT mildly elevated on admission. AST normal, ALT improving. T bili normal. - BP has been low, but asymptomatic and lactic acid normal. No abdominal pain. - HCV Ab negative on admission. - Liver US with duplex with patent vasculature and parenchymal disease. PLAN: - Repeat CMP intermittently. #Generalized weakness #cancer debility bedside commode for use in the home. Bedside commode needed for ADLs at home. Patient has limited mobility which prevents safe and prompt use a regular toilet. # Bi-cytopenia (anemia, thrombocytopenia) secondary to chemo, improving - Hgb stable after transfusion. Counts improving. - Hemodynamically stable, no obvious source of bleeding. - s/p 2 unit pRBCs. PLAN: - Repeat CBC intermittently. Transfuse for Hgb < 7.0, platelets < 10k, or symptomatic/bleeding. #Acute delirium -Delirium precautions -Vistaril as needed -Monitor # NSCLC - First diagnosed 02/2024. Follows with Dr. Zhang. - Previously treated with SBRT. Most recently on carboplatin/paclitaxel/pembro. PLAN: - Medical oncology aware of admission. # Hyponatremia, stable - Mild, asymptomatic. - Repeat BMP intermittently. # Constipation - Continue senna BID with daily Miralax. # Hypomagnesemia - Monitor and replace per BMT electrolyte replacement protocol. CHRONIC MEDICAL ISSUES: # GERD: continue PPI # Chronic back pain: continue gabapentin with PRN Flexeril and start scheduled Tylenol; oxycodone 5-10 mg PRN and IV Dilaudid (decrease to 0.25 mg) for severe, breakthrough pain, monitor for sedationand toxicity while on IV opiates # Insomnia: continue melatonin # BPH: continue tamsulosin RESOLVED: # Fever: unclear etiology of 1 time high grade fever, no new infectious symptoms and respiratory viral work up negative F: PO E: monitor and replace PRN N: regular DVT ppx: pLov Dispo: pending improvement in respiratory status Pooja Flowers MD Division of Hospital Medicine Prefer secure Chat Current Scheduled Medications[1] Current Continuous Medications[2] Current PRN Medications[3] Medically Ready for Discharge:Anticipated in 2-4 Days [1] cariprazine, 1.5 mg, Oral, Daily enoxaparin, 40 mg, Subcutaneous, Daily famotidine, 20 mg, Oral, BID gabapentin, 800 mg, Oral, TID glycopyrrolate, 1 mg, Oral, BID guaiFENesin, 600 mg, Oral, BID lidocaine, 1 patch, Apply externally, q24h melatonin, 6 mg, Oral, Nightly mometasone-formoterol, 2 puff, Inhalation, BID pantoprazole, 40 mg, Oral, Daily polyethylene glycol, 17 g, Oral, Daily senna, 2 tablet, Oral, BID sodium chloride, 10 mL, Intravenous, q12h tamsulosin, 0.4 mg, Oral, Daily with dinner [2] [3] PRN medications: acetaminophen, albuterol, calcium carbonate, cyclobenzaprine, gi cocktail, HYDROmorphone, hydrOXYzine pamoate, ipratropium- albuterol, ondansetron ODT OR ondansetron OR ondansetron, oxyCODONE OR oxyCODONE, Insert peripheral IV AND Saline lock IV AND sodium chl oride AND sodium chloride, sodium chloride-sodium bicarbonate * Consults - Oscar Meza APRN - 03/15/2025 12:30 PM EDTAssociated Order(s): IP CONSULT TO ONCOLOGY Medical Oncology Consult Note Date: 03/16/25 Primary Service: Patient Care Team: Constantine Stiles APRN as PCP - General Farhat Gómez MD as Consulting Physician (Radiation Oncology) History of Present Illness Bryson Teixeira Jr. is a 59 y.o. male with a past medical history of metastatic squamous cell carcinoma of the lung. He is a patient of Dr Zhang and on active treatment plan with Pembrolizumab / Paclitaxel / Carboplatin Every 21 Days, C3D1 03/02/2025. PT reports increase dyspnea since last chemo infusion. CT scan in December and January 2024, found to have a ROSENDO nodule measuring 12 mm along with another nodule. PET CT ordered confirmed the ROSENDO as PET avid but not others. He was asymptomatic at that time. He subsequently went on to get bronchoscopy on 03/02/24. Pathologyas NSCLC favoring squamous cell. The tumor stained positive for P40 and all others stained negative. Level 11 node was also negative. PD-L1 Staining was 20%. He was referred to radiation oncology forpossible SBRT with Dr Dalton who saw him on 03/10/24 and completed XRT in December 2024. He was last seen by oncology outpatient clinic on 03/02/2025. Where he reported feeling okay today.He noted some ongoing shortness of breath and fatigue that is slightly worse the past couple of weeks. Currently on 2L O2 nc and did not require increased amounts of oxygen. PT noted a subcutaneous knot on his left chest reformed after the FNA. Bx 02/09/25 -suspicious for malignancy with several atypical and degenerated squamous cells present, which are suspicious for squamous cell carcinoma. However, in the setting of a cystic lesion (with approximately 4 ml of straw-colored fluid obtained), the epithelial atypia could be reactive/degenerative, rather than neoplastic. . PT seen resting in bed with family at bedside. He reports doing pretty good and voices no complaints. Denies fever, dizziness, lightheadedness, vision changes, headaches, tinnitus, oral lesions, nvdc, edema, rash, neuropathy. Oncology History Oncology History Malignant neoplasm of upper lobe [...] 250 mL IVPB, 590 mg, Intravenous, Once, 3 of 4 cycles Administration: 590 mg (01/19/2025), 680 mg (02/09/2025), 660 mg (03/02/2025) PACLitaxel (Taxol) 324 mg in sodium chloride 0.9 % 500 mL IVPB, 180 mg/m2 = 324 mg (90 % of original dose 200 mg/m2), Intravenous, Once, 3 of 4 cycles Dose modification: 180 mg/m2 (original dose 200 mg/m2, Cycle 1) Administration: 324 mg (01/19/2025), 324 mg (02/09/2025), 312 mg (03/02/2025) pembrolizumab (Keytruda) 200 mg in sodium chloride 0.9% 100 mL IVPB, 200 mg, Intravenous, Once, 3 of 4 cycles Administration: 200 mg (01/19/2025), 200 mg (02/09/2025), 200 mg (03/02/2025) fosaprepitant (Emend) 150 mg in sodium chloride 255 mL IVPB, 150 mg, Intravenous, Once, 3 of 4 cycles Administration: 150 mg (01/19/2025), 150 mg (02/09/2025), 150 mg (03/02/2025) Squamous cell carcinoma of left lung 03/10/2024 [...] LeftLung SBRT 04/14/2024-04/14/2024 3,000 cGy 1 / 3,000 cGy Reference Points Delivered Left Lung [...] 41) Plans Planned Lung/Media 11/17/2024-12/28/2024 200 cGy 6,000 cGy Reference Points Delivered Lung/Mediastinum 11/17/2024-12/28/2024 -- -- 6,000 cGy 10/27/2024 Cancer Staged Staging form: Lung, AJCC 8th Edition, Clinical stage from 10/27/2024: Stage IIIA (ycT1c, cN2, cM0) -Signed by Maninder Zhang MD on 10/28/2024 Review of Systems: 14 pt review of systems performed and negative except as noted in HPI. Past Medical History Past Medical History[1] Past Surgical History Surgical History[2] Family History Family History[3] Social History Patient lives in [place], [place] Tobacco Use History[4] Social History Substance and Sexual Activity Alcohol Use Not Currently Social History Substance and Sexual Activity Drug Use Not Currently Allergies Allergies[5] Medications Current medications reviewed Physical Exam Visit Vitals BP 103/55 (BP Location: Left arm, Patient Position: Lying) Pulse 86 Temp 36.6 ??C (97.8 ??F) (Oral) Resp 18 ECO General: Sitting/resting comfortably, ill appearing, NAD HEENT: NCAT, PERRLA/EOMI, anicteric; no oral lesions Neck: Supple, no lymphadenopathy or JVD Heart: RRR, no MGR Lungs:Diminished, Non-labored; no rales, rhonchi or wheezes; O2 2L nc Abdomen: Soft, NTND, + BS Extremities: No edema, distal pulses intact Musculoskeletal: No focal tenderness or deformity Skin: No visible rashes or lesions Neuro: A&Ox4; Grossly nonfocal; no localizing deficits of strength, or sensation Psychiatric: Normal mood and thought content Labs Labs in last 18 hours CBC WBC 10.50 (H) Hb 7.5 (L) Plt 63 (L) Hct 24.4 (L) ANC 9.03 (H) INR ??, PTT ??, Anti-Xa ?? BMP Na 138 Cl 101 BUN 7 (L) Glu 132 (H) K 3.7 Co2 26 Cr 0.80 Ca 9.0 iCa ?? Mg 1.9, Phos 3.5 Lactate ?? LFT AST 26 AlkPhos 237 (H) T Prot 5.8 (L) ALK 56 (H) Bili 0.2 Alb ?? D.Bili ?? No results found for: UTPCR No results found for: TSH , FREET4 No results found for: CEA , CA199 , AFP Imaging: As per HPI if relevant Assessment and Plan Brysno Teixeira Jr. is a 59 y.o. male who is admitted with hypoxia. Medical oncology consulted for plan of care r/t history of metastatic squamous cell carcinoma of the lung. # Malignant neoplasm of upper left lung lobe - Early stage lung cancer- [id number] 02/2024. - Longstanding history of smoking and found to have [...] treated ROSENDO, mediastinal involvement as N2 disease. - PET during surveillance post radiation on 10/15/24 showing N2 node postive on the left. - MRI of the head was found to have no evidence of mets but noted artifact and unlikely related to disease per radiologist report. - Chemo combined weekly CT (PACLItaxel / CARBOplatin + XRT Every 7 Days) to start concurrently withIMRT (D1= 11/17/24). - CT c/a/p performed on 01/10/25 shows evidence of disease progression with increase in the ROSENDO pulmonary nodule now measuring 19 x 11 mm and a new L upper renal pole mass. MRI brain shows no evidenceof brain mets. #Dysphagia - Complains of six-month history of dysphagia, [...] show any evidence of disease elsewhere. - Unintentional weight gain >10 lbs # Acute on chronic hypoxic respiratory failure due to Strep pneumo pneumonia - Baseline O2 requirement 2L. Requiring up to 5L on admission. - CXR with bilateral lower lobe airspace disease. - CTA PE: negative for PE but showed opacities in lower lobes. - Respiratory viral panel, MRSA nares, Legionella negative. Strep pneumo positive. - Rocephin x 7 days (stop date 03/15) due to neutropenia. - Continue ICS/LABA with scheduled Mucinex and Robinul. - PRN Duonebs - Continue supplemental O2, wean as able for goal O2 sat. # Elevated LFTs, improving - Unclear etiology. ALT mildly elevated on admission. AST normal, ALT improving. T bili normal. - BP has been low, but asymptomatic and lactic acid normal. No abdominal pain. - HCV Ab negative on admission. - Liver US with duplex with patent vasculature and parenchymal disease. Thank you for the consult. We will continue to follow with you. Please call with additional questions or concerns. 60 minutes was spent on this encounter; including preparing to see the patient, which involved review/interpretation of diagnostics and reports; obtaining and/or reviewing separately obtained history; performing appropriate physical exam; ordering/scheduling medications, tests or procedures; communicating findings and counseling/educating the patient, family and/or caregiver; documentation in EMR; and care coordination. Attending physician developed plan of care, which we both discussed with the patient. The patient verbalized understanding and agrees with plan. All questions answered to their satisfaction. Encouraged to call should other questions/concerns arise. Oscar Meza APRN Division of Medical Oncology [facility] [1] Past Medical History: Diagnosis Date COPD [...] Hypertension Other Stroke Other [4] Social History Tobacco Use Smoking Status Former Current packs/day: 0.00 Average packs/day: 2.0 packs/day for 45.4 years (90.8 ttl pk-yrs) Types: Cigarettes Start date: 1978 Quit date: 02/14/2024 Years since quittin.0 Passive exposure: Past Smokeless Tobacco Never [5] No Known Allergies Cosigned by Ko Lock MD at 03/18/2025 3:55 PM EDT Associated attestation - Ko Lock MD - 03/18/2025 3:55 PM EDT I attest to being involved in providing substantive part of the medical decision making in patient care. * Care Plan - Luz Cervantes RN - 03/15/2025 11:56 AM EDT Problem: Adult Inpatient Plan of Care Goal: Plan of Care Review Outcome: Ongoing, Progressing Flowsheets Taken 03/14/20251938 by Malaika Eden RN Progress: no change Plan of Care Reviewed With: patient Taken 03/11/20251941 by Kera Traylor RN Outcome Evaluation: Patient will have no signs of infection by discharge. Goal: Patient-Specific Goal (Individualized) Outcome: Ongoing, Progressing Flowsheets (Taken 03/15/2025 0800) Patient/Family-Specific Goals (Include Timeframe): pt will report a decrease in pain after PRN medsare given Individualized Care Needs: pain management Anxieties, Fears or Concerns: pain Goal: Absence of Hospital-Acquired Illness or Injury Outcome: Ongoing, Progressing Goal: Optimal Comfort and Wellbeing Outcome: Ongoing, Progressing Goal: Readiness for Transition of Care Outcome: Ongoing, Progressing Intervention: Mutually Develop Transition Plan Flowsheets Taken 03/14/20251938 by Malaika Eden RN Equipment Currently Used at Home: oxygen Current Outpatient/Agency/Support Group: support group(s) Concerns to be Addressed: discharge planning Readmission Within the Last 30 Days: no previous admission in last 30 days Taken 03/11/2025 1408 by Abbey Conti RN Discharge Facility/Level of Care Needs: 1-Home or Self Care Transportation Anticipated: family or friend will provide Outpatient/Agency/Support Group Needs: clinic(s) Transportation Concerns: none Current Discharge Risk: chronically ill Patient/Family Anticipates Transition to: home with family Taken 03/09/20251999 by Naomy Ivy RN Equipment Needed After Discharge: oxygen * Care Plan - Lili Arnold RN - 03/15/2025 10:20 AM EDT Problem: Wound Goal: Skin Health and Integrity Outcome: Ongoing, Not Progressing Intervention: Optimize Skin Protection Flowsheets (Taken 03/15/2025 1019) Pressure Reduction Techniques: positioned off wounds sit time limited to 2 hours Pressure Reduction Devices: foam padding utilized Skin Protection: pressure points protected * Progress Notes - Lili Arnold RN - 03/15/2025 10:15 AM EDT Images from the original note were not included. Wound Care Consult Visit Date: 03/15/2025 Patient Name: Bryson Teixeira Jr. Date of : 1965 Admit Date: 03/08/2025 Reason for Consult: IP Wound Orders (From admission, onward) Start Ordered 03/10/25258 Wound ostomy eval and treat Buttocks Pressure Injury Once Comments: Admitted to floor 03/10, need wound consult. Thanks! Question: Instructions: Answer: Prior to sending evaluation & treat order, place wound/ostomy LDA, complete a wound/ostomy assessment, and consider taking a photograph to document. 03/10/25 025 Wound History: Present on admission, patient notes since getting sick in the last few months he hasspent more time in the bed. He felt the wound had been there for awhile. Patient able to repositionwith prompting and up from chair to bed with standby assist. Had not been treating the area at home. Wound Assessment: Wound 03/09/25 Pressure Injury Buttocks (Active) Date First Assessed/Time First Assessed: 03/09/25 1600 Present on Original Admission: Yes Hand Hygiene Completed: Yes Primary Wound Type: Pressure Injury Pressure Injury Stage: Stage 3 Location: Buttocks Assessments 03/15/2025 9:53 AM Wound Image Wound Assessment Yellow Wound Length (cm) 1 cm Wound Width (cm) 0.8 cm Wound Surface Area (cm^2) 0.57 cm^2 Treatments Cleansed Dressing Foam Pressure Injury Stage Stage 3 Active Orders Date Order Priority Status Authorizing Provider 03/14/25 1441 Apply/Change Wound Dressing Buttocks Pressure Injury Routine Active Kusum Barrera DO - Dressing Type: Other Dressings - Other: Other (Comment) - Other dressing (comment):: Cover coccyx/sacrum wound with Allevyn foam. Peel back and assess every shift. Change every 3 days and PRN if soiled or saturated. If frequently incontinent, remove allevyn foam and apply barrier film and let dry, apply Z-guard TID and PRN incontinence. 03/14/25 1441 Positioning Patient (Pressure injury prevention) -No Supine. Reposition from side to side; Float Heels off the bed all times; Reposition patient while on bed every two hours, Repositionpatient in the chair at least every hour. Limit sitting to no... Routine Active Kusum Barrera, DO - Supine:: No Supine. Reposition from side to side - Float heels:: Float Heels off the bed all times - Reposition patient:: Reposition patient while on bed every two hours - Reposition patient:: Reposition patient in the chair at least every hour. Limit sitting to no more than 2 hours at a time. Use air cushion while sitting - Reposition patient:: Turn patient to 30 degress as medically appropriate Wound Team Summary Assessment: Round full thickness skin loss to right gluteal. Superior area of blanchable erythema and skin peeling where skin meets, along with additional full thickness loss 0.4cmx 0.4cm. Wound Team Plan: Patient denies frequent stooling will use padded foam dressing and repositioning. If the dressing is bulky or rolls up can switch to z guard ointment. Wound care will follow up at regular intervals while inpatient; bedside nursing to follow wound care recommendations as ordered and please re-consult sooner for new changes or concerns prior to follow up. Lili Arnold RN 03/15/2025 10:15 AM * Progress Notes - Hi Navarro - 03/15/2025 9:46 AM EDT OCCUPATIONAL THERAPY TREATMENT PATIENT DATA Patient Name Bryson Teixeira Jr. Session Date 03/15/2025 OT Discharge Recommendations Home with assistance, Home health PT, Home health OT Equipment Recommendations Rolling walker MOBILITY GUIDELINES Mobility Protocol: General - Mobility Guidelines Extremity Precautions: No Extremity Precautions Other mobility precautions: No other precautions required PRECAUTIONS Medical Precautions Medical Precautions: Fall precautions HOME LIVING/SET-UP Lives With Spouse, Adult, Son Home Type Mobile home Home Equipment None Home Layout Stairs to enter with rails 1 Bathroom Layout Tub/Shower combo, Built-in shower seat, Grab bars Standard Additional Comments able to provide 07/04 assist. PRIOR LEVEL OF FUNCTION Receives help from No assist required prior to admission Level of Mobility Ambulatory- community Mobility [place] History of Falls No ADL Performance Independent PRESENTATION Oxygen Supplemental oxygen Nasal cannula 4 L/min Telemetry Yes Lines and Tubes Peripheral IV 03/08/25 Anterior;Distal;Right;Upper Arm (Active) Peripheral IV 03/09/25 Right;Medial;Upper Arm (Active) Pre-Session Supine, Head of bed elevated, Lines intact, Bed alarm present Post-Session Lines intact, Chair alarm, RN notified, Call light in reach, Sitting in chair RN notified of pt in chair with chair alarm on Bracing (if applicable) SUBJECTIVE PARTICIPANTS IN CARE Patient/Caregiver Comments Patient repeatedly states, I need that book out of the closet , howeverno book in the closet and pt difficult to redirect secondary to delirium. Visitors Present Yes Spouse Business Banker (if applicable) N/A OBJECTIVE PAIN Patient with no reports of pain this date. DELIRIUM SCREENING [place] Agitation Sedation Scale (RASS): Alert and calm Confusion Assessment Method-ICU (CAM-ICU/PCAM-ICU) Feature 3: Altered Level of Consciousness: Negative COGNITION SCREENING Overall Cognitive Status Impaired Arousal/Alertness Appropriate responses to stimuli Mood/Behavior Confused, Distractible, Impulsive Orientation Oriented X4 Command Following Single Step Commands: With increased time, With repetition, Consistently Multi-Step Commands: With increased time, With repetition, 75% of the time Method of Communication Verbal Additional Observations Safety Judgment: Poor awareness of safety precautions Awareness of Errors: Decreased awareness of errors Deficit Awareness: Decreased awareness of deficits Attention Span: Attends with cues to redirect INTERVENTIONS SELF-CARE Treatment Minutes (if applicable) 24 Comments OT challenged patient to participate in self-care intervention tasks to maximize independence with toileting, grooming, and dressing tasks. Increased time required for OT to complete room setup, line management, and ensure patient safety during participation in ADL tasks. Patient educated on role of OT, importance of safety and participation in therapy while in facility, and d/c planningat this time. Level of [place] Adaptive Equipment Utilized Interventions Lower Body Dressing Sock Level of Assistance: Setup, Contact guard, Moderate verbal cues Pt required setup of shoes and increased time to complete trunk flexion to reach BLE to don shoes on both feet. Pt required verbal cues and increase time to complete task this date secondary to distractibility and impulsivity. Pt with CGA throughout secondary to decreased dynamic sitting balance. Toileting IADLs Health Management Community Re-Entry See functional mobility section for details. BED MOBILITY Level of [place] Physical/Non- physical Assist Adaptive Equipment Utilized Rolling/ Turning Stand-by assist Verbal Cues, Moderate cues Bed rails Scooting/ Bridging Stand-by assist Verbal Cues, Moderate cues Bed rails Supine to Sit Stand-by assist Maximal cues, Verbal Cues, HOB elevated Sit to Supine Interventions Pt attempt to climb ky bed rail this date and required verbal/tactile cues to return to supine for OT to put down bed rail prior to completing sup<>sit with SBA. Pt required verbal cues for safety and pacing of task this date as pt with impaired cognition impeding safety awareness. TRANSFERS Level of [place] Physical/Non- physical Assist Adaptive Equipment Utilized Sit to Stand Contact guard Maximal cues, Verbal Cues, Nonverbal cues (demo/gestures) Walker, rolling Stand to sit Contact guard Maximal cues, Verbal Cues, Nonverbal cues (demo/gestures) Walker, rolling Bed to Chair Toilet Transfer Shower Transfer Interventions OT provided verbal/tactile cues for hand placement on chair/RW ths date, pt with poorfollow through secondary to impaired cognition and continued to place BUE onto RW during all transfers requiring CGA secondary to high fall risk. FUNCTIONAL MOBILITY Level of [place] Distance Adaptive Equipment Utilized Ambulation Contact guard assist, Moderate verbal cues, Moderate tactile cues 35ft with seated rest break Comments OT providing patient with verbal and tactile cues for improved upright posture and hand placement on RW this date. Patient requiring maximum verbal cues this date and increased time to follow single step command of turn left two times this date. Patient engaged in multiple trials of mobility at this time reaching a maximum distance of 35ft before requiring increased OT intervention forsafe pace, safety with environmental navigation, and RW management. During seated rest break, pt attempted to put feet on top of walker and required verbal/tactile cues to place BLE onto floor. OT monitored O2 throughout and O2 ay 96% seated at EOB, 94% following navigation task, and 98% following seated rest break on 4L of )2 throughout. ASSESSMENT Patient participated throughout OT tx session this date, however significantly limited by COPD and onset of hospital delirium. Patient required grossly CGA throughout secondary to decreased safety awareness and impulsivity. Pt will continue to benefit from skilled OT services during current admission to maximize return to PLOF. Pt remains most appropriate for home with assistance and home health OT/PT following discharge home to support independence with ADLs and functional mobility. OT RECOMMENDATIONS Discharge Destination Home with assistance, Home health PT, Home health OT Discharge Equipment Rolling walker PLAN Continue OT POC 2-5x/week to address OT goals. OT GOALS OT GOAL DETAILS Goal Established Date Time Frame Goal Status OT Goal 1: Pt will be modified independent with total body dressing with AAD PRN. 03/10/25 2 weeks OT Goal 2: Pt will complete toileting including clothing management and personal hygiene with Mod Iand AAD PRN. 03/10/25 2 weeks OT Goal 3: Pt will demonstrate independence in bilateral UE HEP to increase strength and endurance for ADL performance. 03/10/25 2 weeks Written by Hi Navarro on 03/15/25 at 12:04 PM. * Care Plan - Malaika Eden RN - 03/14/2025 7:41 PM EDT Problem: Adult Inpatient Plan of Care Goal: Plan of Care Review Outcome: Ongoing, Progressing Flowsheets (Taken 03/14/20251938) Progress: no change Plan of Care Reviewed With: patient Goal: Patient-Specific Goal (Individualized) Outcome: Ongoing, Progressing Flowsheets (Taken 03/14/20251938) Patient/Family-Specific Goals (Include Timeframe): pt will report decreased pain an hour after recieving pain medicine Individualized Care Needs: pain management Anxieties, Fears or Concerns: pain Goal: Absence of Hospital-Acquired Illness or Injury Outcome: Ongoing, Progressing Goal: Optimal Comfort and Wellbeing Outcome: Ongoing, Progressing Goal: Readiness for Transition of Care Outcome: Ongoing, Progressing Intervention: Mutually Develop Transition Plan Flowsheets (Taken 03/14/20251938) Equipment Currently Used at Home: oxygen Current Outpatient/Agency/Support Group: support group(s) Concerns to be Addressed: discharge planning Readmission Within the Last 30 Days: no previous admission in last 30 days Problem: Pain Chronic (Persistent) Goal: Optimal Pain Control and Function Outcome: Ongoing, Progressing Intervention: Optimize Psychosocial Wellbeing Flowsheets (Taken 03/14/20251938) Supportive Measures: active listening utilized counseling provided Diversional Activities: television Spiritual Activities Assistance: hope instilled Family/Support System Care: involvement promoted Intervention: Develop Pain Management Plan Flowsheets (Taken 03/14/20251938) Pain Management Interventions: medication (see MAR) Intervention: Manage Persistent Pain Flowsheets (Taken 03/14/20251938) Bowel Elimination Promotion: ambulation promoted Sleep/Rest Enhancement: awakenings minimized Medication Review/Management: medications reviewed Problem: Infection Goal: Absence of Infection Signs and Symptoms Outcome: Ongoing, Progressing Intervention: Prevent or Manage Infection Flowsheets (Taken 03/14/20251938) Infection Management: aseptic technique maintained Fever Reduction/Comfort Measures: fluid intake increased Isolation Precautions: precautions maintained Problem: Pain Acute Goal: Optimal Pain Control and Function Outcome: Ongoing, Progressing Intervention: Optimize Psychosocial Wellbeing Flowsheets (Taken 03/14/20251938) Supportive Measures: active listening utilized counseling provided Diversional Activities: television Spiritual Activities Assistance: hope instilled Intervention: Develop Pain Management Plan Flowsheets (Taken 03/14/20251938) Pain Management Interventions: medication (see MAR) Intervention: Prevent or Manage Pain Flowsheets (Taken 03/14/20251938) Bowel Elimination Promotion: ambulation promoted Sleep/Rest Enhancement: awakenings minimized Medication Review/Management: medications reviewed Problem: Gas Exchange Impaired Goal: Optimal Gas Exchange Outcome: Ongoing, Progressing Intervention: Optimize Oxygenation and Ventilation Flowsheets (Taken 03/14/20251938) Airway/Ventilation Management: airway patency maintained calming measures promoted oxygen therapy provided Head of Bed (HOB) Positioning: HOB elevated * Progress Notes - Lili Arnold RN - 03/14/2025 2:41 PM EDT Wound Care Consult Visit Date: 03/14/2025 Patient Name: Bryson Teixeira Jr. Date of : 1965 Admit Date: 03/08/2025 Reason for Consult: IP Wound Orders (From admission, onward) Start Ordered 03/10/25258 Wound ostomy eval and treat Buttocks Pressure Injury Once Comments: Admitted to floor 03/10, need wound consult. Thanks! Question: Instructions: Answer: Prior to sending evaluation & treat order, place wound/ostomy LDA, complete a wound/ostomy assessment, and consider taking a photograph to document. 03/10/25258 Based on available photos placed recommendations in the chart, will follow up at anoher time for assessment..Pad and protect coccyx/sacrum with Allevyn foam. Peel back and assess every shift. Change every 3 days and PRN if soiled or saturated. Do not use on incontinent patient. Turn and reposition every 2 hours to offload. Lili Arnold RN 03/14/2025 2:41 PM * Progress Notes - Denisha Crenshaw - 03/14/2025 2:00 PM EDT Physical Therapy Treatment Patient Name: Bryson Teixeira Jr. Today's Date: 03/14/2025 PT Discharge Recommendations: Home with assistance, Home health PT, Home health OT Equipment Recommended: Rolling walker Subjective RN and pt agreeable to physical therapy session. Participants in Care Family/Caregiver Present: Yes Family/Caregiver: Spouse Business Banker: Not Applicable Presentation Oxygen Therapy: Supplemental oxygen O2 Delivery Method: Nasal cannula O2 Flow Rate (L/min): 4 L/min Lines and Tubes: Telemetry, Intravenous access Pre-Session: Supine, Head of bed elevated, Lines intact, Bed alarm Pre-Session Comments: RN agreeable to therapy session. Post-Session: Supine, Head of bed elevated, Lines intact, Bed alarm (zone 1, 2, 3), Call light in reach, RN notified Post-Session Comments: All needs in reach. Spouse present in room. Precautions Medical Precautions: Fall precautions Objective Pain Pt reports having some pain in his right side at start of therapy session however, does not rate the pain on 0-10 scale. Pt reports he has 10/10 low back pain at end of therapy session. Pt placed in position of comfort and RN made aware. Delirium Screening [place] Agitation Sedation Scale (RASS): Alert and calm Confusion Assessment Method-ICU (CAM-ICU/PCAM-ICU) Feature 3: Altered Level of Consciousness: Negative Bed Mobility Bed Mobility Interventions: Pt able to complete bed mobility without physical assistance hpwever, requires increased time 2/2 pain and SOA. Bed Mobility Exam: Rolling/Turning Level of [place]: Stand-by assist Physical/Nonphysical Assist: Verbal Cues, Minimal cues Assistive Device: Bed rails Bed Mobility Exam: Scooting/Bridging Level of [place]: Stand-by assist Physical/Nonphysical Assist: Verbal Cues, Minimal cues Assistive Device: Bed rails Bed Mobility Exam: Supine to Sit Level of [place]: Stand-by assist Physical/Nonphysical Assist: Verbal Cues, Minimal cues, HOB elevated Bed Mobility Exam: Sit to Supine Level of [place]: Stand-by assist Physical/Nonphysical Assist: Verbal Cues, Minimal cues, HOB elevated Assistive Device: Bed rails Transfers Transfer Interventions: Pt given verbal cues to push up from the bed to stand up and to reach back for the arms of the bed prior to sitting down to ensure pt safety. Pt impulsive and requires frequent verbal cues during transfers to decrease fall risk. Transfer Exam: Sit to stand Level of [place]: Minimum assist (75% patient's effort) ([place] from toilet; x 2 CGA from EOB) Physical/Nonphysical Assist: Verbal Cues, Moderate cues, Additional assist utilized for safety Assistive Device: Walker, rolling Transfer Exam: Stand to Sit Level of [place]: Contact guard (x 1 to toilet; x 2 to EOB) Physical/Nonphysical Assist: Verbal Cues, Moderate cues, Additional assist utilized for safety Assistive Device: Walker, rolling Toilet Transfer Level of [place]: Contact guard Physical/Nonphysical Assist: Verbal Cues, Maximal cues, Additional assist utilized for safety Type of Transfer: Ambulation, To toilet Assistive Device: Walker, rolling Ambulation Device: Rolling walker Assistance: Contact guard assist, Moderate verbal cues, Additional assist utilized for safety Distance : 2 x 15' Ambulation Comments: Pt ambulates with increased gait speed, narrow DARRYL, rounded shoulders, and downward gaze. Pt given verbal cues for walker management including adjusting walker to correct height,proper hand positioning, maintaining appropriate distance away from walker, and keeping both feet inside walker at all times. Pt with decreased safety awareness as demonstrated by walking away from walker, maintaining distnace too far away from walker, and turning with both feet outside the walker when ambulating to/from the bathroom. Pt demonstrates decreased activity tolerance and had desaturation episodes both with walking to and from the bathroom into low 80's on 4L of NC. Pt required extended periods of seated rest between ambulation bouts. Balance Balance Interventions: Pt worked on dynamic reaching tasks at the sink. Pt able to perform both forwar and laterally reaching tasks with unilateral UE support with no LOB episodes. Pt fatigues quickly and requires seated rest break. Static Sitting Balance Static Sitting-Balance Support: No upper extremity support, Feet supported Static Sitting-Level of Assistance: Standby assist Dynamic Sitting Balance Dynamic Sitting-Balance Support: No upper extremity support, Feet supported Dynamic Sitting-Balance: Anterior/Posterior weight shifts, Lateral weight shifts Level of Assistance: Standby assisst Static Standing Balance Static Standing-Balance Support: Right upper extremity support, Left upper extremity support Static Standing-Level of Assistance: Contact guard Dynamic Standing Balance Dynamic Standing-Balance Support: Right upper extremity support, Left upper extremity support Dynamic Standing-Balance: Lateral weight shifts, Anterior/Posterior weight shifts Dynamic Standing Level of Assistance: Contact guard Therapeutic Activity (18 minutes) Refer to bed mobility, transfer, balance, and ambulation sections. Pt benefited from skilled physical therapy interventions including: Monitoring of vitals to ensure activity tolerance Provision of increased time frames to support optimal level of pt participation Skilled organization and management of medical lines/tubes Environmental set-up to ensure safety and accessibility to all needed areas of treatment space Patient's vitals monitored with activity with the following readings recorded: Activity O2 Saturation Start of therapy (supine) 95% After 1st ambulation bout 86% After seated rest break 92% After 2nd ambulation bout 84% End of therapy (supine) >92% Patient requiring ~5 minutes seated rest breaks between activities to recover. Therapeutic Exercise (10 minutes) PT created individualized printed HEP for patient using Narrative program. Patient prescribed the following exercises in order to increase strength, ROM, and balance for improving independence with functional mobility. Patient demonstrated ability to perform each exercise with correct form. Home Exercise Program - Supine Ankle Pumps (3 sets x 10 reps) - Gluteal Sets (3 sets x 10 reps) - Seated Long Arc Quad (3 sets x 10 reps) - Seated March (3 sets x 10 reps) - Seated Shoulder Flexion Full Range (3 sets x 10 reps) - Seated Boxing Jabs (3 sets x 10 reps) - Seated Biceps Curl (3 sets x 10 reps) HEP can be accessed further at: Access Code: [email or web address] URL: [email or web address] Date: 03/14/2025 Prepared by: Denisha Crenshaw Standardized Assessments Standardized Assessments Standardized Assessments: [facility] 6-Clicks Mobility Assessment [facility] 6-Clicks Mobility Assessment Difficulty patient has turning over in bed (including adjusting bedclothes, sheets, and blankets)?:None Difficulty patient has sitting down on and standing up from a chair with arms (wheelchair, bedside commode, etc.)?: A little Difficulty patient has moving from lying on back to sitting on the side of the bed?: None How much help does the patient need moving to and from a bed to a chair (including a wheelchair)?: A little How much help does the patient need to walk in hospital room?: A little How much help does the patient need climbing 3-5 steps with a railing?: A lot [facility] 6-Clicks Mobility Assessment Total : 19 Assessment Pt tolerated therapy session well with no adverse response. Pt continues to work on transfers and ambulation at this time. Pt requires increased physical assistance with standing from the toilet compared to the bed due to the lower surface height. Pt demonstrates decreased activity tolerance by desaturating to low 80's with short ambulation bout during therapy session and requiring increased period of seated rest to recover. Pt slightly impulsive and requires frequent verbal cues for walker management to ensure pt safety and decrease fall risk. Pt would continue to benefit from inpatient physical therapy session to increase LE strength, balance, activity tolerance, and safety awareness. PT Recommendations Discharge Destination: Home with assistance, Home health PT, Home health OT Discharge Equipment: Rolling walker Plan Continue working on gait training to increase LE strength, balance, and activity tolerance. PT Goals PT GOAL DETAILS Goal Established Date Time Frame Goal Status PT Goal 1: Pt will be independent with HEP and d/c recs. 03/10/25 2 weeks PT Goal 2: Pt will independently transfer supine <> sit with HOB flat. 03/10/25 2 weeks PT Goal 3: Pt will transfer sit <> stand and bed <> chair Shai with an assistive deviceas needed. 03/10/25 2 weeks PT Goal 4: Pt will ambulate 320' Shai with an assistive device. 03/10/25 2 weeks PT Goal 5: Pt will negotiate 1 stairs Shai with SUPERVISING FLOORPERSON. 03/10/25 2 weeks Written by Denisha Crenshaw on 03/14/25 at 2:41 PM. * Progress Notes - Kusum Barrera Anh, DO - 03/14/2025 1:50 PM EDT Subjective No acute events overnight. Feels breathing is okay. notes patient desats with coughing and gets bumped up on oxygen. No other complaints. Saw patient in the afternoon and RT present. Still requiring 4L, and RT notes patient desatted to 86% on 4L going to the bathroom. also notes patient asking about brother and said patient said he was getting change out while holding piece of broccoli. Review of Systems Respiratory: Positive for cough. Negative for shortness of breath. Gastrointestinal: Negative for nausea and vomiting. Objective Vitals Temp: [36.7 ??C (98.1 ??F)-37.5 ??C (99.5 ??F)] 36.8 ??C (98.2 ??F) Heart Rate: [87-108] 96 Resp: [14-20] 18 BP: (89-102)/(49-65) 95/61 Physical Exam Vitals reviewed. Constitutional: General: He is not in acute distress. Appearance: Normal appearance. He is ill-appearing (chronically). He is not toxic-appearing. Interventions: Nasal cannula in place. Comments: Lying in bed. HENT: Head: Normocephalic and atraumatic. Eyes: General: No scleral icterus. Conjunctiva/sclera: Conjunctivae normal. Cardiovascular: Rate and Rhythm: Normal rate and regular rhythm. Heart sounds: Normal heart sounds. No murmur heard. No friction rub. No gallop. Pulmonary: Effort: Pulmonary effort is normal. No respiratory distress. Breath sounds: Normal breath sounds. No wheezing or rhonchi. Abdominal: General: Bowel sounds are decreased. There is no distension. Palpations: Abdomen is soft. Tenderness: There is no abdominal tenderness. Musculoskeletal: Right lower leg: No edema. Left lower leg: No edema. Skin: General: Skin is warm and dry. Neurological: General: No focal deficit present. Mental Status: He is alert. Psychiatric: Mood and Affect: Mood normal. Behavior: Behavior normal. Labs in last 18 hours CBC WBC 7.05 Hb 7.4 (L) Plt 54 (L) Hct 23.4 (L) ANC ?? INR ??, PTT ??, Anti-Xa ?? BMP Na 135 (L) Cl 97 BUN 10 Glu 150 (H) K 4.1 Co2 27 Cr 0.82 Ca 8.7 (L) iCa ?? Mg 1.7 (L), Phos 3.2 Lactate ?? LFT AST ?? AlkPhos ?? T Prot ?? ALK ?? Bili ?? Alb ?? D.Bili ?? Labs personally reviewed. Significant for anemia, thrombocytopenia, stable renal function. Magnesium mildly low. Flu, COVID, RSV, respiratory viral panel negative. CXR personally reviewed and shows improvement in lower lobe airspace disease. Assessment & Plan Pneumonia of both lower lobes due to infectious organism Acute on chronic respiratory failure with hypoxia Pancytopenia due to chemotherapy (CMS/HCC) Malignant neoplasm of upper lobe of left lung (CMS/HCC) Squamous cell carcinoma of left lung 59 yo M with PMH of NSCLC, COPD on 2L who was transferred from OSH for pancytopenia and acute on chronic hypoxic respiratory failure. Found to have Strep pneumo pneumonia. On Rocephin. Oxygen requirement improving/stable. # Acute on chronic hypoxic respiratory failure due to Strep pneumo pneumonia - Baseline O2 requirement 2L. Requiring up to 5L on admission. - CXR with bilateral lower lobe airspace disease. - CT PE: negative for PE but showed opacities in lower lobes. - Respiratory viral panel, MRSA nares, Legionella negative. Strep pneumo positive. PLAN: - Continue Rocephin x 7 days (stop date 03/15) due to neutropenia. Consider transition to PO Augmentin, if otherwise stable for discharge, to complete course. - Continue ICS/LABA with scheduled Mucinex and Robinul. - PRN Dutoya and MDI. - Continue supplemental O2, wean as able. Goal O2 sat > 88%. Currently on 3-4L NC. May need increased O2 from baseline for a short time due to poor reserve in the setting of pneumonia. # Elevated LFTs, improving - Unclear etiology. ALT mildly elevated on admission. AST normal, ALT improving. T bili normal. - BP has been low, but asymptomatic and lactic acid normal. No abdominal pain. - HCV Ab negative on admission. - Liver US with duplex with patent vasculature and parenchymal disease. PLAN: - Repeat CMP intermittently. # Bi-cytopenia (anemia, thrombocytopenia) secondary to chemo, improving - Hgb stable after transfusion. Counts improving. - Hemodynamically stable, no obvious source of bleeding. - s/p 2 unit pRBCs. PLAN: - Repeat CBC intermittently. Transfuse for Hgb < 7.0, platelets < 10k, or symptomatic/bleeding. # NSCLC - First diagnosed 02/2024. Follows with Dr. Zhang. - Previously treated with SBRT. Most recently on carboplatin/paclitaxel/pembro. PLAN: - Medical oncology aware of admission. # Hyponatremia, stable - Mild, asymptomatic. - Repeat BMP intermittently. # Constipation - Continue senna BID with daily Miralax. # Hypomagnesemia - Monitor and replace per BMT electrolyte replacement protocol. CHRONIC MEDICAL ISSUES: # GERD: continue PPI # Chronic back pain: continue gabapentin with PRN Flexeril and start scheduled Tylenol; oxycodone 5-10 mg PRN and IV Dilaudid (decrease to 0.25 mg) for severe, breakthrough pain, monitor for sedationand toxicity while on IV opiates # Insomnia: continue melatonin # BPH: continue tamsulosin RESOLVED: # Fever: unclear etiology of 1 time high grade fever, no new infectious symptoms and respiratory viral work up negative F: PO E: monitor and replace PRN N: regular DVT ppx: pLov Dispo: pending improvement in respiratory status Kusum Barrera DO Division of Hospital Medicine Secure chat preferred Current Scheduled Medications[1] Current Continuous Medications[2] Current PRN Medications[3] Medically Ready for Discharge:Anticipated in 2-4 Days [1] cefTRIAXone, 2 g, Intravenous, q24h cyclobenzaprine, 7.5 mg, Oral, q8h SUPRIYA enoxaparin, 40 mg, Subcutaneous, Daily famotidine, 20 mg, Oral, BID gabapentin, 800 mg, Oral, TID glycopyrrolate, 1 mg, Oral, BID guaiFENesin, 600 mg, Oral, BID lidocaine, 1 patch, Apply externally, q24h melatonin, 6 mg, Oral, Nightly mometasone-formoterol, 2 puff, Inhalation, BID pantoprazole, 40 mg, Oral, Daily polyethylene glycol, 17 g, Oral, Daily senna, 2 tablet, Oral, BID sodium chloride, 10 mL, Intravenous, q12h tamsulosin, 0.4 mg, Oral, Daily with dinner [2] [3] PRN medications: albuterol, calcium carbonate, gi cocktail, HYDROmorphone, ipratropium-albuterol, ondansetron ODT OR ondansetron OR ondansetron, oxyCODONE OR oxyCODONE, Insert peripheral IV AND Saline lock IV AND sodium chloride AND sodium chloride, sodium chloride-sodium bicarbonate * Progress Notes - Abbey Conti RN - 03/14/2025 11:31 AM EDT Case Management Adult Progress Note Bryson Teixeira Jr. 59 y.o. male CSN: [id number] Admission: 03/08/2025 4:56 PM Primary Problem: Acute on chronic respiratory failure with hypoxia Anticipated Discharge Date: 03.18.2025 to home. Medically Ready for Discharge: Anticipated in 2-4 Days Additional Comments: per team, patient had increased in oxygen overnight and currently on 02@ 6 L via NC. IV ABX started. Current DME: [facility] [employer] ( phone [phone] ). Transport: family Abbey Conti RN * Consults - Lyndsey Murphy RD - 03/14/2025 11:09 AM EDT Adult Nutrition Evaluation Note Bryson Teixeira Jr. 59 y.o. male CSN: [id number] Room/Bed 241/241A Nutrition evaluation type: follow up Reason for evaluation: Hospital course: 59 yo M with significant history for COPD, NSCLC presents with pancytopenia and acute hypoxic respiratory failure. SLP6/26 recommended regular, thins, no straws. Past medical/ surgical history: Past Medical History[1] Surgical History[2] Social history: Additional comments: Spoke with pt this morning. Pt said he has a good appetite, reports he ate most of his breakfast. Said he wasn't eating as much at home as he is in hospital, unable to describe why. Weighed 160# prior to illness, now is 136#. Pt has muscle wasting on exam. Encouraged PO. He likes chocolate boost. Vitals and Basic Assessment: BP: 95/61 Temp: 36.8 ??C (98.2 ??F) Oxygen Therapy: Supplemental oxygen O2 Delivery Method: Nasal cannula Karthaus Coma Scale Score: 15 Benja Scale Score: 16 Jelani/Cubbin Pressure Risk Score: 39 Most Recent BM Date: 03/13/25 GI Symptoms: Loss of appetite Allergies: NKFA Medications: Current Medications[3] Labs: Labs in last 18 hours CBC WBC 7.05 Hb 7.4 (L) Plt 54 (L) Hct 23.4 (L) ANC ?? INR ??, PTT ??, Anti-Xa ?? BMP Na 135 (L) Cl 97 BUN 10 Glu 150 (H) K 4.1 Co2 27 Cr 0.82 Ca 8.7 (L) iCa ?? Mg 1.7 (L), Phos 3.2 Lactate ?? LFT AST ?? AlkPhos ?? T Prot ?? ALK ?? Bili ?? Alb ?? D.Bili ?? Lab Results Component Value Date HGBA1C 6.6 (H) 01/19/2025 Anthropometrics: Height: 175.3 cm (5' 9.02 ) Weight: 61.9 kg (136 lb 7.4 oz) BMI (Calculated): 20.14 Weight Evaluation: Normal (BMI 18.5-24.9) Weight History: UBW= 160# Thatcher Body Weight (kg): 72.7 Percent Thatcher Body Weight: 83 Wt Readings from Last 10 Encounters: 03/13/25 61.9 kg (136 lb 7.4 oz) 03/02/25 58.9 kg (129 lb 13.6 oz) 03/02/25 59 kg (130 lb 1.1 oz) 02/09/25 62.5 kg (137 lb 12.6 oz) 02/09/25 62.8 kg (138 lb 7.2 oz) 01/19/25 66.5 kg (146 lb 9.7 oz) 01/12/25 65.8 kg (145 lb 1 oz) 12/27/24 67.1 kg (147 lb 14.9 oz) 12/22/24 68.1 kg (150 lb 2.1 oz) 12/20/24 68.2 kg (150 lb 5.7 oz) Per EMR, pt has lost 7.8 kg in 2-3 months (11%) Estimated Needs: Kcal/ K Kcal Provided: 2170 Kcal Needs Based On: Current weight (62 kg) Metabolic Cart Study Results: Current Nutrition Intake: Diet Supplements: Boost Glucose Control (TID) Diet Order: Adult Diet Diet Texture: Regular Adult Carbohydrate Restriction: Consistent CHO 2 (5176-2728 Alireza, 80 g/meal) Percent Meals Eaten (%): 75% over 3 meals Diet Experience and Nutrition History: Diet Education Provided: Will monitor Nutrition Focused Physical Exam: Physical exam performed on (date): 03/14 Temples (muscles): Severe Clavicle (muscle): Moderate Shoulder (muscle): Severe Orbital (fat): Moderate Triceps (fat): Moderate Energy Intake: <75% EER > 1 month Weight Loss: 14% over a few months Assessment of Malnutrition: Malnutrition Identified: Yes Meets Criteria For: Severe malnutrition In Context Of: Chronic illness/ injury Based On: Severely reduced energy intake, Severe weight loss, Severe muscle mass loss Present on Admission: Yes Nutrition Problem: Inadequate oral intake related to decreased appetite as evidenced by 14% weight loss over multiple months Status of Nutrition Diagnosis: New Nutrition Interventions and Recommendations: - CC3 diet, no straws - Boost VHC TID - Multivitamin, thiamine daily Nutrition Monitoring and Goals: - Tolerate PO intake >75% - Weight maintenance Acuity Level: [address] [1] Past Medical History: Diagnosis Date COPD (chronic obstructive pulmonary disease) (CMS/HCC) Dental disease full dentures Hip pain Hip pain, acute, right Leg pain Lower back pain Shortness of breath Wears dentures [2] Past Surgical History: Procedure Laterality Date BACK SURGERY N/A [3] Current Facility-Administered Medications: acetaminophen (Tylenol) tablet 650 mg, 650 mg, Oral, q6h SUPRIYA, Kusum Barrera DO albuterol 108 (90 Base) MCG/ACT inhaler 2 puff, 2 puff, Inhalation, q6h PRN, Kusum Barrera DO calcium carbonate (Tums) chewable tablet 500 mg, 500 mg, Oral, 4x daily PRN, Kusum Barrera DO, 500 mg at 03/13/25 1240 cefTRIAXone (Rocephin) 2 g in sodium chloride 0.9% 100 mL IVPB (vial adapter required), 2 g, Intravenous, q24h, Kusum Barrera DO, Last Rate: 220 mL/hr at 03/14/25 1122, 2 g at 03/14/25 1122 cyclobenzaprine (Flexeril) tablet 7.5 mg, 7.5 mg, Oral, TID PRN, Kusum Barrera DO enoxaparin (Lovenox) syringe 40 mg, 40 mg, Subcutaneous, Daily, Yonas Bright MBBS, 40 mg at03/14/25 0902 famotidine (Pepcid) tablet 20 mg, 20 mg, Oral, BID, Kusum Barrera DO, 20 mg at 03/14/25 0905 gabapentin (Neurontin) capsule 800 mg, 800 mg, Oral, TID, Yonas Bright MBBS, 800 mg at 03/14/25 0905 gi cocktail oral solution 30 mL, 30 mL, Oral, 4x daily PRN, Kusum Barrera DO, 30 mL at 03/13/25 1504 glycopyrrolate (Robinul) tablet 1 mg, 1 mg, Oral, BID, Kusum Barrera DO, 1 mg at 03/14/25 0904 guaiFENesin (Mucinex) 12 hr tablet 600 mg, 600 mg, Oral, BID, Kusum Barrera DO, 600 mg at 03/14/25 0905 HYDROmorphone (Dilaudid) injection 0.25 mg, 0.25 mg, Intravenous, q4h PRN, Kusum Barrera DO ipratropium-albuterol (Duo-Neb) 0.5-2.5 mg/3 mL nebulizer solution 3 mL, 3 mL, Nebulization, q6h PRN, Kusum Barrera DO, 3 mL at 03/12/25 1013 lidocaine (Lidoderm) 5 % patch 1 patch, 1 patch, Apply externally, q24h, Frame, Luiza Shields MD, 1 patch at 03/12/252116 melatonin tablet 6 mg, 6 mg, Oral, Nightly, Yonas Bright MBBS, 6 mg at 03/13/252021 mometasone-formoterol (Dulera 200) 200-5 MCG/ACT inhaler 2 puff, 2 puff, Inhalation, BID, Kusum Barrera DO, 2 puff at 03/14/25 0905 ondansetron ODT (Zofran-ODT) disintegrating tablet 4 mg, 4 mg, Oral, q6h PRN OR ondansetron (Zofran) injection 4 mg, 4 mg, Intravenous, q6h PRN, 4 mg at 03/12/25 1628 OR ondansetron (Zofran) 4 MG/5ML solution 4 mg, 4 mg, Oral, q6h PRN, Yonas Bright MBBS oxyCODONE (Roxicodone) immediate release tablet 5 mg, 5 mg, Oral, q4h PRN, 5 mg at 03/14/25 1402 OR oxyCODONE (Roxicodone) immediate release tablet 10 mg, 10 mg, Oral, q4h PRN, Kusum Barrera DO, 10 mg at 03/14/25 0904 pantoprazole (Protonix) EC tablet 40 mg, 40 mg, Oral, Daily, Yonas Bright MBBS, 40 mg at 03/14/25 0905 polyethylene glycol (Miralax) packet 17 g, 17 g, Oral, Daily, Yonas Bright MBBS, 17 g at 03/14/25 0902 senna (Senokot) tablet 17.2 mg, 2 tablet, Oral, BID, Kusum Barrera DO, 17.2 mg at 03/14/25 0905 Insert peripheral IV, , , Once AND Saline lock IV, , , Once AND sodium chloride 0.9 % flush10 mL, 10 mL, Intravenous, q12h, 10 mL at 03/14/25 0907 AND sodium chloride 0.9 % flush 10 mL, 10 mL, Intravenous, PRN, Yonas Bright MBBS sodium chloride-sodium bicarbonate (Salt/Soda) oral rinse 15 mL, 15 mL, Swish & Spit, 4x daily PRN, Yonas Bright MBBS tamsulosin (Flomax) 24 hr capsule 0.4 mg, 0.4 mg, Oral, Daily with dinner, Yonas Bright MBBS, 0.4 mg at 03/13/25 1846 * Care Plan - Sena Eduardo RN - 03/14/2025 9:54 AM EDT Problem: Pain Chronic (Persistent) Goal: Optimal Pain Control and Function Outcome: Ongoing, Progressing Intervention: Manage Persistent Pain Flowsheets (Taken 03/14/2025 0952) Complementary Therapy: (medication utilized) other (see comments) Bowel Elimination Promotion: ambulation promoted adequate fluid intake promoted Sleep/Rest Enhancement: consistent schedule promoted family presence promoted Medication Review/Management: medications reviewed PRN pain meds given as needed. Patient educated to call out for pain levels that are not tolerated.This nurse will assess pain q4h. * Care Plan - Malaika Eden RN - 03/13/2025 7:53 PM EDT Problem: Adult Inpatient Plan of Care Goal: Plan of Care Review Outcome: Ongoing, Progressing Flowsheets (Taken 03/13/20251951) Progress: no change Plan of Care Reviewed With: patient Goal: Patient-Specific Goal (Individualized) Outcome: Ongoing, Progressing Flowsheets (Taken 03/13/20251951) Patient/Family-Specific Goals (Include Timeframe): pt will report decreased pain an hour after recieving pain medicine Individualized Care Needs: pain management Anxieties, Fears or Concerns: pain Goal: Absence of Hospital-Acquired Illness or Injury Outcome: Ongoing, Progressing Goal: Optimal Comfort and Wellbeing Outcome: Ongoing, Progressing Goal: Readiness for Transition of Care Outcome: Ongoing, Progressing Intervention: Mutually Develop Transition Plan Flowsheets Taken 03/11/2025 1408 by Abbey Conti RN Discharge Facility/Level of Care Needs: 1-Home or Self Care Transportation Anticipated: family or friend will provide Outpatient/Agency/Support Group Needs: clinic(s) Transportation Concerns: none Current Discharge Risk: chronically ill Concerns to be Addressed: no discharge needs identified discharge planning Readmission Within the Last 30 Days: no previous admission in last 30 days Patient/Family Anticipates Transition to: home with family Taken 03/09/20251999 by Naomy Ivy RN Equipment Needed After Discharge: oxygen Equipment Currently Used at Home: oxygen * Progress Notes - Kusum Barrera, - 03/13/2025 10:52 AM EDT Subjective No acute events overnight. Breathing doing okay this AM. Cough better last night. No new complaintsother than back/hip/leg pain from bed/chair. Review of Systems HENT: Negative for congestion and sore throat. Respiratory: Positive for cough. Negative for shortness of breath. Gastrointestinal: Negative for diarrhea, nausea and vomiting. Objective Vitals Temp: [36.8 ??C (98.3 ??F)-38.3 ??C (101 ??F)] 36.8 ??C (98.3 ??F) Heart Rate: [90-102] 93 Resp: [14-18] 15 BP: (80-98)/(52-62) 90/62 Physical Exam Vitals reviewed. Constitutional: General: He is not in acute distress. Appearance: Normal appearance. He is ill-appearing (chronically). He is not toxic-appearing. Interventions: Nasal cannula in place. Comments: Lying in bed. HENT: Head: Normocephalic and atraumatic. Eyes: General: No scleral icterus. Conjunctiva/sclera: Conjunctivae normal. Cardiovascular: Rate and Rhythm: Normal rate and regular rhythm. Heart sounds: Normal heart sounds. No murmur heard. No friction rub. No gallop. Pulmonary: Effort: Pulmonary effort is normal. No respiratory distress. Breath sounds: Normal breath sounds. No wheezing or rhonchi. Abdominal: General: Bowel sounds are decreased. Palpations: Abdomen is soft. Tenderness: There is no abdominal tenderness. Musculoskeletal: Right lower leg: No edema. Left lower leg: No edema. Skin: General: Skin is warm and dry. Neurological: General: No focal deficit present. Mental Status: He is alert. Psychiatric: Mood and Affect: Mood normal. Behavior: Behavior normal. Labs in last 18 hours CBC WBC 5.44 Hb 7.2 (L) Plt 58 (L) Hct 22.8 (L) ANC ?? INR ??, PTT ??, Anti-Xa ?? BMP Na 133 (L) Cl 99 BUN 10 Glu 150 (H) K 4.0 Co2 24 Cr 0.99 Ca 8.4 (L) iCa ?? Mg ??, Phos ?? Lactate ?? LFT AST 24 AlkPhos 216 (H) T Prot 5.6 (L) ALK 75 (H) Bili 0.3 Alb ?? D.Bili ?? Labs personally reviewed. Significant for anemia, thrombocytopenia, stable renal function, improvedLFTs. Random cortisol normal. Assessment & Plan Pneumonia of both lower lobes due to infectious organism Acute on chronic respiratory failure with hypoxia Pancytopenia due to chemotherapy (CMS/HCC) Malignant neoplasm of upper lobe of left lung (CMS/HCC) Squamous cell carcinoma of left lung 59 yo M with PMH of NSCLC, COPD on 2L who was transferred from OSH for pancytopenia and acute on chronic hypoxic respiratory failure. Found to have Strep pneumo pneumonia. On Rocephin. Oxygen requirement improving/stable. # Fever - Unclear etiology. No new infectious symptoms and has been on Rocephin for several days for pneumonia. No signs/symptoms of DVT. - Blood cultures obtained overnight. Will follow up. - Respiratory viral panel, RSV, flu, COVID ordered for evaluation. - Consider broadening Rocephin to cefepime and/or ID consult if continues to have high grade fevers. # Acute on chronic hypoxic respiratory failure due to Strep pneumo pneumonia - Baseline O2 requirement 2L. Requiring up to 5L on admission. - CXR with bilateral lower lobe airspace disease. - CT PE: negative for PE but showed opacities in lower lobes. - Respiratory viral panel, MRSA nares, Legionella negative. Strep pneumo positive. PLAN: - Continue Rocephin x 7 days due to neutropenia. Consider transition to PO Augmentin, if otherwise stable for discharge, to complete course. - Continue ICS/LABA with scheduled Mucinex and Robinul. - PRN Duonebs and MDI. - Continue supplemental O2, wean as able. Goal O2 sat > 88%. Currently on 3L NC. # Elevated LFTs, improving - Unclear etiology. ALT mildly elevated on admission. AST normal, ALT improving. T bili normal. - BP has been low, but asymptomatic and lactic acid normal. No abdominal pain. - HCV Ab negative on admission. - Liver US with duplex with patent vasculature and parenchymal disease. PLAN: - Repeat CMP intermittently. # Bi-cytopenia (anemia, thrombocytopenia) secondary to chemo, improving - Hgb stable after transfusion. Counts improving. - Hemodynamically stable, no obvious source of bleeding. - s/p 2 unit pRBCs. PLAN: - Repeat CBC tomorrow. Transfuse for Hgb < 7.0, platelets < 10k, or symptomatic/bleeding. # NSCLC - First diagnosed 02/2024. Follows with Dr. Zhang. - Previously treated with SBRT. Most recently on carboplatin/paclitaxel/pembro. PLAN: - Medical oncology aware of admission. # Hyponatremia, stable - Mild, asymptomatic. - Repeat BMP tomorrow. # Constipation - Continue senna BID with daily Miralax. CHRONIC MEDICAL ISSUES: # GERD: continue PPI # Chronic back pain: continue gabapentin with scheduled Flexeril; oxycodone to 5-10 mg PRN and IV Dilaudid for severe, breakthrough pain, monitor for sedation and toxicity while on IV opiates # Insomnia: continue melatonin # BPH: continue tamsulosin F: PO E: monitor and replace PRN N: regular DVT ppx: pLov Dispo: pending improvement in respiratory status, fever work up Kusum Barrera DO Division of Hospital Medicine Secure chat preferred Current Scheduled Medications[1] Current Continuous Medications[2] Current PRN Medications[3] Medically Ready for Discharge:Anticipated in 2-4 Days [1] cefTRIAXone, 2 g, Intravenous, q24h cyclobenzaprine, 7.5 mg, Oral, q8h SUPRIYA enoxaparin, 40 mg, Subcutaneous, Daily famotidine, 20 mg, Oral, BID gabapentin, 800 mg, Oral, TID glycopyrrolate, 1 mg, Oral, BID guaiFENesin, 600 mg, Oral, BID lidocaine, 1 patch, Apply externally, q24h melatonin, 6 mg, Oral, Nightly mometasone-formoterol, 2 puff, Inhalation, BID pantoprazole, 40 mg, Oral, Daily polyethylene glycol, 17 g, Oral, Daily senna, 2 tablet, Oral, BID sodium chloride, 10 mL, Intravenous, q12h tamsulosin, 0.4 mg, Oral, Daily with dinner [2] [3] PRN medications: albuterol, calcium carbonate, gi cocktail, HYDROmorphone, ipratropium-albuterol, ondansetron ODT OR ondansetron OR ondansetron, oxyCODONE OR oxyCODONE, Insert peripheral IV AND Saline lock IV AND sodium chloride AND sodium chloride, sodium chloride-sodium bicarbonate * Progress Notes - Julieta Oliveira RN - 03/13/2025 8:33 AM EDT Case Management Adult Progress Note Bryson Teixeira Jr. 59 y.o. male CSN: [id number] Admission: 03/08/2025 4:56 PM Primary Problem: Acute on chronic respiratory failure with hypoxia Anticipated Discharge Date: tbd Medically Ready for Discharge: Anticipated in 5+ Days Additional Comments CM asked to follow this patient for weekend discharge. Patient remain not ready. Primary CM will continue to follow. Julieta Oliveira RN * Care Plan - Kera Traylor RN - 03/13/2025 6:52 AM EDT Problem: Adult Inpatient Plan of Care Goal: Plan of Care Review Outcome: Ongoing, Progressing Flowsheets Taken 03/13/2025 0649 Progress: no change Plan of Care Reviewed With: patient spouse Taken 03/11/20251941 Outcome Evaluation: Patient will have no signs of infection by discharge. Goal: Patient-Specific Goal (Individualized) Outcome: Ongoing, Progressing Goal: Absence of Hospital-Acquired Illness or Injury Outcome: Ongoing, Progressing Goal: Optimal Comfort and Wellbeing Outcome: Ongoing, Progressing Goal: Readiness for Transition of Care Outcome: Ongoing, Progressing Intervention: Mutually Develop Transition Plan Note: Case management ongoing Problem: Pain Chronic (Persistent) Goal: Optimal Pain Control and Function Outcome: Ongoing, Progressing Intervention: Optimize Psychosocial Wellbeing Flowsheets (Taken 03/12/20252124) Supportive Measures: active listening utilized decision-making supported relaxation techniques promoted verbalization of feelings encouraged Diversional Activities: television Spiritual Activities Assistance: hope instilled Family/Support System Care: involvement promoted presence promoted self-care encouraged support provided Intervention: Develop Pain Management Plan Flowsheets (Taken 03/12/20252124) Pain Management Interventions: medication (see MAR) care clustered Intervention: Manage Persistent Pain Flowsheets (Taken 03/12/20252124) Bowel Elimination Promotion: adequate fluid intake promoted Sleep/Rest Enhancement: family presence promoted Medication Review/Management: medications reviewed Problem: Infection Goal: Absence of Infection Signs and Symptoms Outcome: Ongoing, Progressing Intervention: Prevent or Manage Infection Flowsheets (Taken 03/12/2025 8506) Infection Management: aseptic technique maintained cultures obtained and sent to lab Isolation Precautions: precautions maintained neutropenic * Care Plan - Pj Serrato RN - 03/12/2025 7:44 PM EDT Problem: Adult Inpatient Plan of Care Goal: Plan of Care Review Outcome: Ongoing, Progressing Flowsheets (Taken 03/12/20251942) Progress: no change Goal: Patient-Specific Goal (Individualized) Outcome: Ongoing, Progressing Goal: Absence of Hospital-Acquired Illness or Injury Outcome: Ongoing, Progressing Goal: Optimal Comfort and Wellbeing Outcome: Ongoing, Progressing Goal: Readiness for Transition of Care Outcome: Ongoing, Progressing Problem: Adult Inpatient Plan of Care Goal: Plan of Care Review Outcome: Ongoing, Progressing Flowsheets (Taken 03/12/20251942) Progress: no change Goal: Patient-Specific Goal (Individualized) Outcome: Ongoing, Progressing Goal: Absence of Hospital-Acquired Illness or Injury Outcome: Ongoing, Progressing Goal: Optimal Comfort and Wellbeing Outcome: Ongoing, Progressing Goal: Readiness for Transition of Care Outcome: Ongoing, Progressing Problem: Pain Chronic (Persistent) Goal: Optimal Pain Control and Function Outcome: Ongoing, Progressing * Significant Event - Pj Serrato RN - 03/12/2025 4:21 PM EDT Ortho vitals: Lying - temp: 100.2, HR 100, BP 93/60 (71), 92% on 3LNC / sitting - BP: 89/57 (62), HR 102 / Standing - BP 78/51 (60), HR 114 * Progress Notes - Kusum Barrera DO - 03/12/2025 11:30 AM EDT Subjective No acute events overnight. Feeling okay this AM. Says breathing is fine and that it gets low , buthe feels okay. Bumped up to 5L overnight, down to 4L this AM. Still has cough. Nurse notes thick sputum that is difficult for patient to cough up. Patient says back pain is tolerable. No other complaints. Review of Systems Respiratory: Positive for cough. Negative for shortness of breath. Gastrointestinal: Negative for nausea and vomiting. Musculoskeletal: Positive for back pain. Objective Vitals Temp: [36.6 ??C (97.9 ??F)-37.6 ??C (99.6 ??F)] 36.7 ??C (98.1 ??F) Heart Rate: [93-114] 94 Resp: [16-20] 16 BP: (78-97)/(43-62) 96/62 Physical Exam Vitals reviewed. Constitutional: General: He is not in acute distress. Appearance: Normal appearance. He is ill-appearing (chronically). He is not toxic-appearing. Interventions: Nasal cannula in place. Comments: Sitting in bed, eating breakfast. HENT: Head: Normocephalic and atraumatic. Eyes: General: No scleral icterus. Conjunctiva/sclera: Conjunctivae normal. Cardiovascular: Rate and Rhythm: Normal rate and regular rhythm. Heart sounds: Normal heart sounds. No murmur heard. No friction rub. No gallop. Pulmonary: Effort: Pulmonary effort is normal. No respiratory distress. Breath sounds: Normal breath sounds. No wheezing or rhonchi. Abdominal: General: Bowel sounds are decreased. Palpations: Abdomen is soft. Tenderness: There is no abdominal tenderness. Musculoskeletal: Right lower leg: No edema. Left lower leg: No edema. Skin: General: Skin is warm and dry. Neurological: General: No focal deficit present. Mental Status: He is alert. Psychiatric: Mood and Affect: Mood normal. Behavior: Behavior normal. Labs in last 18 hours CBC WBC 2.86 (L) Hb 8.4 (L) Plt 56 (L) Hct 26.7 (L) ANC 1.99 INR ??, PTT ??, Anti-Xa ?? BMP Na 135 (L) Cl 102 BUN 10 Glu 131 (H) K 4.3 Co2 24 Cr 0.69 (L) Ca 8.7 (L) iCa ?? Mg ??, Phos ?? Lactate ?? LFT AST 58 (H) AlkPhos 237 (H) T Prot 5.7 (L) ALK 112 (H) Bili 0.3 Alb ?? D.Bili ?? Labs personally reviewed. Significant for improving WBCs/ANC, stable Hgb and platelets, renal function stable. AST/ALT increased from previous. Assessment & Plan Pneumonia of both lower lobes due to infectious organism Acute on chronic respiratory failure with hypoxia Pancytopenia due to chemotherapy (CMS/HCC) Malignant neoplasm of upper lobe of left lung (CMS/HCC) Squamous cell carcinoma of left lung 59 yo M with PMH of NSCLC, COPD on 2L who was transferred from OSH for pancytopenia and acute on chronic hypoxic respiratory failure. Found to have Strep pneumo pneumonia. On Rocephin. Oxygen requirement improving/stable. # Acute on chronic hypoxic respiratory failure due to Strep pneumo pneumonia - Baseline O2 requirement 2L. Requiring up to 5L on admission. - CXR with bilateral lower lobe airspace disease. - CT PE: negative for PE but showed opacities in lower lobes. - Respiratory viral panel, MRSA nares, Legionella negative. Strep pneumo positive. PLAN: - Continue Rocephin x 7 days due to neutropenia. Consider transition to PO Augmentin, if otherwise stable for discharge, to complete course. - Resume ICS/LABA with scheduled Mucinex and Robinul. - PRN Ignacio and ELLIS. - Continue supplemental O2, wean as able. Goal O2 sat > 88%. Currently on 3L NC. # Elevated LFTs - Unclear etiology. ALT mildly elevated on admission. AST/ALT elevated now. T bili normal. - BP has been low, but asymptomatic and lactic acid normal. No abdominal pain. - HCV Ab negative on admission. PLAN: - Liver US ordered. - Repeat CMP tomorrow. If no other obvious source and continue to increase, could be due to pembro. # Pancytopenia secondary to chemo, improving - Hgb stable after transfusion. Counts improving. - Hemodynamically stable, no obvious source of bleeding. - s/p 2 unit pRBCs. PLAN: - Repeat CBC tomorrow. Transfuse for Hgb < 7.0, platelets < 10k, or symptomatic/bleeding. # NSCLC - First diagnosed 02/2024. Follows with Dr. Zhang. - Previously treated with SBRT. Most recently on carboplatin/paclitaxel/pembro. PLAN: - Medical oncology aware of admission. # Hyponatremia - Mild, asymptomatic. - Repeat CMP tomorrow. # Constipation - Continue senna BID with daily Miralax. CHRONIC MEDICAL ISSUES: # GERD: continue PPI # Chronic back pain: continue gabapentin with scheduled Flexeril; oxycodone to 5-10 mg PRN and IV Dilaudid for severe, breakthrough pain, monitor for sedation and toxicity while on IV opiates # Insomnia: continue melatonin # BPH: continue tamsulosin RESOLVED: # Severe neutropenia F: PO E: monitor and replace PRN N: regular DVT ppx: pLov Dispo: pending improvement in respiratory status, stable LFTs Kusum Barrera DO Division of Hospital Medicine Secure chat preferred Current Scheduled Medications[1] Current Continuous Medications[2] Current PRN Medications[3] Medically Ready for Discharge:Anticipated in 2-4 Days [1] cefTRIAXone, 2 g, Intravenous, q24h cyclobenzaprine, 7.5 mg, Oral, q8h SUPRIYA enoxaparin, 40 mg, Subcutaneous, Daily gabapentin, 800 mg, Oral, TID glycopyrrolate, 1 mg, Oral, BID guaiFENesin, 600 mg, Oral, BID lidocaine, 1 patch, Apply externally, q24h melatonin, 6 mg, Oral, Nightly mometasone-formoterol, 2 puff, Inhalation, BID pantoprazole, 40 mg, Oral, Daily polyethylene glycol, 17 g, Oral, Daily senna, 2 tablet, Oral, BID sodium chloride, 10 mL, Intravenous, q12h tamsulosin, 0.4 mg, Oral, Daily with dinner [2] [3] PRN medications: albuterol, HYDROmorphone, ipratropium-albuterol, ondansetron ODT OR ondansetron OR ondansetron, oxyCODONE OR oxyCODONE, Insert peripheral IV AND Saline lock IV AND sodium chloride AND sodium chloride, sodium chloride-sodium bicarbonate * Care Plan - Nhi García - 03/11/2025 8:46 PM EDT Problem: Adult Inpatient Plan of Care Goal: Plan of Care Review Outcome: Ongoing, Progressing Flowsheets (Taken 03/11/20251941 by Kera Traylor, DONNA) Progress: no change Outcome Evaluation: Patient will have no signs of infection by discharge. Plan of Care Reviewed With: patient spouse Goal: Patient-Specific Goal (Individualized) Outcome: Ongoing, Progressing Flowsheets (Taken 03/11/20251999) Patient/Family-Specific Goals (Include Timeframe): patient will maintain tolerable pain level during shift Individualized Care Needs: pain managmenet Anxieties, Fears or Concerns: pain Goal: Absence of Hospital-Acquired Illness or Injury Outcome: Ongoing, Progressing Goal: Optimal Comfort and Wellbeing Outcome: Ongoing, Progressing Goal: Readiness for Transition of Care Outcome: Ongoing, Progressing Problem: Pain Chronic (Persistent) Goal: Optimal Pain Control and Function Outcome: Ongoing, Progressing * Care Plan - Kera Traylor RN - 03/11/2025 2:30 PM EDT Problem: Adult Inpatient Plan of Care Goal: Plan of Care Review Outcome: Ongoing, Progressing Flowsheets (Taken 03/11/2025 1942) Progress: no change Outcome Evaluation: Patient will have no signs of infection by discharge. Plan of Care Reviewed With: patient spouse Goal: Patient-Specific Goal (Individualized) Outcome: Ongoing, Progressing Goal: Absence of Hospital-Acquired Illness or Injury Outcome: Ongoing, Progressing Goal: Optimal Comfort and Wellbeing Outcome: Ongoing, Progressing Goal: Readiness for Transition of Care Outcome: Ongoing, Progressing Intervention: Mutually Develop Transition Plan Flowsheets Taken 03/11/2025 1408 by Abbey Conti, fire manager Facility/Level of Care Needs: 1-Home or Self Care Transportation Anticipated: family or friend will provide Outpatient/Agency/Support Group Needs: clinic(s) Transportation Concerns: none Current Discharge Risk: chronically ill Concerns to be Addressed: no discharge needs identified discharge planning Readmission Within the Last 30 Days: no previous admission in last 30 days Patient/Family Anticipates Transition to: home with family Taken 03/09/20251999 by Naomy Ivy RN Equipment Needed After Discharge: oxygen Equipment Currently Used at Home: oxygen Problem: Pain Chronic (Persistent) Goal: Optimal Pain Control and Function Outcome: Ongoing, Progressing Intervention: Optimize Psychosocial Wellbeing Flowsheets (Taken 03/11/2025 1430) Supportive Measures: active listening utilized decision-making supported relaxation techniques promoted verbalization of feelings encouraged Diversional Activities: television Spiritual Activities Assistance: hope instilled Family/Support System Care: involvement promoted presence promoted self-care encouraged support provided Intervention: Develop Pain Management Plan Flowsheets (Taken 03/11/2025 1430) Pain Management Interventions: care clustered emotional support Intervention: Manage Persistent Pain Flowsheets (Taken 03/11/2025 1430) Bowel Elimination Promotion: adequate fluid intake promoted other (see comments) Sleep/Rest Enhancement: family presence promoted Medication Review/Management: medications reviewed Note: carolee Nguyễn * Progress Notes - Abbey Conti RN - 03/11/2025 2:09 PM EDT Case Management Adult Progress Note Bryson Teixeira Jr. 59 y.o. male CSN: [id number] Admission: 03/08/2025 4:56 PM Primary Problem: Acute on chronic respiratory failure with hypoxia Anticipated Discharge Date: 03.12.2025 home Medically Ready for Discharge: Anticipated in 2-4 Days Additional Comments: per team, not medically ready for discharge. PT/OT Discharge Recommendations: Home with assistance, Home health PT, Home health OT Equipment Recommended: Rolling walker Home oxygen established Abbey Conti, RN * Hospital Course - Kusum Barrera DO - 03/11/2025 1:33 PM EDT RESOLVED: # ?Urinary retention # Lactic acidosis: likely due to sepsis # Dysphagia: speech consulted, MBS without aspiration; okay for regular diet with thin liquids # Severe neutropenia * Progress Notes - Kusum Barrera DO - 03/11/2025 1:30 PM EDT Subjective No acute events overnight. Feeling okay this AM. Breathing is better. Still has non-productive cough. No other complaints. Review of Systems Respiratory: Positive for cough. Negative for shortness of breath. Gastrointestinal: Negative for nausea and vomiting. Musculoskeletal: Positive for back pain (improved). Objective Vitals Temp: [36.6 ??C (97.9 ??F)-37 ??C (98.6 ??F)] 36.6 ??C (97.9 ??F) Heart Rate: [95-114] 96 Resp: [16-20] 16 BP: (82-101)/(43-61) 82/43 Physical Exam Vitals reviewed. Constitutional: General: He is not in acute distress. Appearance: Normal appearance. He is ill-appearing (chronically). He is not toxic-appearing. Interventions: Nasal cannula in place. Comments: Sitting in bedside chair. HENT: Head: Normocephalic and atraumatic. Eyes: General: No scleral icterus. Conjunctiva/sclera: Conjunctivae normal. Cardiovascular: Rate and Rhythm: Normal rate and regular rhythm. Heart sounds: Normal heart sounds. No murmur heard. No friction rub. No gallop. Pulmonary: Effort: Pulmonary effort is normal. No respiratory distress. Breath sounds: Normal breath sounds. No wheezing or rhonchi. Abdominal: Palpations: Abdomen is soft. Tenderness: There is no abdominal tenderness. Musculoskeletal: Right lower leg: No edema. Left lower leg: No edema. Skin: General: Skin is warm and dry. Neurological: General: No focal deficit present. Mental Status: He is alert. Psychiatric: Mood and Affect: Mood normal. Behavior: Behavior normal. Labs in last 18 hours CBC WBC 1.17 (LL) Hb 8.0 (L) Plt 52 (L) Hct 24.6 (L) ANC 0.46 (LL) INR ??, PTT ??, Anti-Xa ?? BMP Na ?? Cl ?? BUN ?? Glu ?? K ?? Co2 ?? Cr ?? Ca ?? iCa ?? Mg ??, Phos ?? Lactate ?? LFT AST ?? AlkPhos ?? T Prot ?? ALK ?? Bili ?? Alb ?? D.Bili ?? Labs personally reviewed. Significant for improved WBCs/Hgb, platelets relatively stable. ANC still< 500. Assessment & Plan Pneumonia of both lower lobes due to infectious organism Acute on chronic respiratory failure with hypoxia Pancytopenia due to chemotherapy (CMS/HCC) Malignant neoplasm of upper lobe of left lung (CMS/HCC) Dysphagia (Resolved: 03/11/2025) Squamous cell carcinoma of left lung 59 yo M with PMH of NSCLC, COPD on 2L who was transferred from OSH for pancytopenia and acute on chronic hypoxic respiratory failure. Found to have Strep pneumo pneumonia. On Rocephin. Oxygen requirement improving/stable. # Acute on chronic hypoxic respiratory failure due to Strep pneumo pneumonia - Baseline O2 requirement 2L. Requiring up to 5L on admission. - CXR with bilateral lower lobe airspace disease. - CT PE: negative for PE but showed opacities in lower lobes. - Respiratory viral panel, MRSA nares, Legionella negative. Strep pneumo positive. PLAN: - Continue Rocephin x 7 days due to neutropenia. If ANC improved and afebrile, could transition to PO Augmentin to complete course. - Duonebs PRN. - Continue supplemental O2, wean as able. Goal O2 sat > 88%. Currently on 3L NC. # Pancytopenia secondary to chemo, improving - Hgb stable after transfusion. - Hemodynamically stable, no obvious source of bleeding. - s/p 2 unit pRBCs. PLAN: - Repeat CBC tomorrow. Transfuse for Hgb < 7.0, platelets < 10k, or symptomatic/bleeding. # Immunocompromised secondary to chemo with severe neutropenia - ANC 460. - Repeat CBC with diff tomorrow and monitor for signs/symptoms of other infection. # NSCLC - First diagnosed 02/2024. Follows with Dr. Zhang. - Previously treated with SBRT. Most recently on carboplatin/paclitaxel/pembro. PLAN: - Medical oncology aware of admission. # Hyponatremia - Mild, asymptomatic. - Repeat BMP tomorrow. # Constipation - Continue senna BID with daily Miralax. CHRONIC MEDICAL ISSUES: # GERD: continue PPI # Chronic back pain: continue gabapentin with scheduled Flexeril; oxycodone to 5-10 mg PRN and IV Dilaudid for severe, breakthrough pain, monitor for sedation and toxicity while on IV opiates # Insomnia: continue melatonin # BPH: continue tamsulosin F: PO E: monitor and replace PRN N: regular DVT ppx: pLov Dispo: pending improvement in respiratory status, improved ANC Kusum Barrera DO Division of Hospital Medicine Secure chat preferred Current Scheduled Medications[1] Current Continuous Medications[2] Current PRN Medications[3] Medically Ready for Discharge:Anticipated in 2-4 Days [1] cefTRIAXone, 2 g, Intravenous, q24h cyclobenzaprine, 7.5 mg, Oral, q8h SUPRIYA enoxaparin, 40 mg, Subcutaneous, Daily gabapentin, 800 mg, Oral, TID lidocaine, 1 patch, Apply externally, q24h melatonin, 6 mg, Oral, Nightly pantoprazole, 40 mg, Oral, Daily polyethylene glycol, 17 g, Oral, Daily senna, 2 tablet, Oral, BID sodium chloride, 1,000 mL, Intravenous, Once sodium chloride, 10 mL, Intravenous, q12h tamsulosin, 0.4 mg, Oral, Daily with dinner [2] [3] PRN medications: HYDROmorphone, ipratropium-albuterol, ondansetron ODT OR ondansetron OR ondansetron, oxyCODONE OR oxyCODONE, Insert peripheral IV AND Saline lock IV AND sodium chloride AND sodium chloride, sodium chloride-sodium bicarbonate * Care Plan - Nhi García - 03/11/2025 1:23 AM EDT Problem: Adult Inpatient Plan of Care Goal: Plan of Care Review Outcome: Ongoing, Not Progressing Goal: Patient-Specific Goal (Individualized) Outcome: Ongoing, Not Progressing Goal: Absence of Hospital-Acquired Illness or Injury Outcome: Ongoing, Not Progressing Goal: Optimal Comfort and Wellbeing Outcome: Ongoing, Not Progressing Goal: Readiness for Transition of Care Outcome: Ongoing, Not Progressing * Progress Notes - Estrella Amezquita - 03/10/2025 2:53 PM EDT Occupational Therapy Evaluation Patient Name: Bryson Teixeira Jr. Today's Date: 03/10/2025 OT Discharge Recommendations: Home with assistance, Home health PT, Home health OT Equipment Recommended: Rolling walker History Bryson Teixeira Jr. is 59 y.o. male admitted 03/08/2025 for work-up of Acute on chronic respiratory failure with hypoxia. Problem List Active Hospital Problems Diagnosis Date Noted Acute on chronic respiratory failure with hypoxia 03/09/2025 Pancytopenia due to chemotherapy (CMS/HCC) 03/09/2025 Pneumonia of both lower lobes due to infectious organism 03/08/2025 Dysphagia 06/19/2024 Malignant neoplasm of upper lobe of left lung (CMS/HCC) 03/10/2024 Squamous cell carcinoma of left lung 03/10/2024 Past Medical History Patient has a past medical history of COPD (chronic obstructive pulmonary disease) (CMS/HCC), Dental disease, Hip pain, Hip pain, acute, right, Leg pain, Lower back pain, Shortness of breath, and Wears dentures. Past Surgical History Patient has a past surgical history that includes Back surgery (N/A). Precautions Medical Precautions: Fall precautions Subjective Patient and RN agreeable to Occupational Therapy evaluation and treatment session. Patients spouse reports, He was mowing and walking to yarsanism on Friday Participants in Care Family/Caregiver Present: Yes Family/Caregiver: Spouse Business Banker: Not Applicable Presentation Oxygen Therapy: Supplemental oxygen O2 Delivery Method: Nasal cannula O2 Flow Rate (L/min): 3 L/min Lines and Tubes: Peripheral IV 03/08/25 Anterior;Distal;Right;Upper Arm (Active) Peripheral IV 03/09/25 Right;Medial;Upper Arm (Active) Pre-Session: Sitting in chair, Lines intact Pre-Session Comments: RN agreeable to therapy evaluation. Post-Session: Supine, Head of bed elevated, Lines intact, Bed alarm (zone 1, 2, 3), Call light in reach Post-Session Comments: All needs in reach. Spouse present in room. Home Living/Set-up Lives With: Spouse, Adult, Son Home Type: Mobile home Home Adaptive Equipment: None Home Layout: Stairs to enter with rails Number of Stairs: 1 Bathroom: Tub/Shower: Tub/Shower combo, Built-in shower seat, Grab bars Bathroom: Toilet: Standard Home Living Comments: able to provide 24/7 assist. Prior Level of Function Receives Help From: No assist required prior to admission Level of Mobility: Ambulatory- community History of Falls: No ADL Performance: Independent Patient/Family Goals Statement Patient wants to be independent, be able to mow the yard and go to yarsanism. Objective Pain Patient reported 7/10 back pain at start of session. At end of session, patient requested to returnto bed level and was positioned for comfort. Delirium Screening Bonilla Agitation Sedation Scale (RASS): Alert and calm Confusion Assessment Method-ICU (CAM-ICU/PCAM-ICU) Feature 3: Altered Level of Consciousness: Negative Cognition Overall Cognitive Status: Within Functional Limits Arousal/Alertness: Appropriate responses to stimuli Mood/Behavior: Alert Orientation Level: Oriented to place, Oriented to time, Oriented to situation, Oriented to person Single Step Commands: Consistently Multi-Step Commands: Consistently Method of Communication: Verbal Right Upper Extremity Examination RUE ROM Assessment RUE Assessment: Within Functional Limits Manual Muscle Testing - RUE: (Grossly ~3/5) Sensation Light Touch: Right Upper Extremity: Intact Left Upper Extremity Examination LUE ROM Assessment LUE Assessment: Within Functional Limits Manual Muscle Testing - LUE: (Grossly ~4/5) Sensation Light Touch: Left Upper Extremity: Intact Right Lower Extremity Examination RLE ROM Assessment RLE Assessment: Within Functional Limits Manual Muscle Testing - RLE: Within functional limits Hip flexion: 4- Knee Extension: 4 Ankle Dorsiflexion: 5 Sensation Light Touch: Right Lower Extremity: Intact Left Lower Extremity Examination LLE ROM Assessment LLE Assessment: Within Functional Limits Hip flexion: 4+ Knee Extension: 5 Ankle Dorsiflexion: 5 Sensation Light Touch: Left Lower Extremity: Intact Bed Mobility Bed Mobility Exam: Sit to Supine Level of [place]: Stand-by assist Physical/Nonphysical Assist: Verbal Cues, Supervision Assistive Device: Bed rails Transfers Transfer Exam: Sit to stand Level of [place]: Stand-by assist Physical/Nonphysical Assist: Verbal Cues, Minimal cues Assistive Device: Walker, rolling Transfer Exam: Stand to Sit Level of [place]: Stand-by assist Physical/Nonphysical Assist: Verbal Cues, Minimal cues Assistive Device: Walker, rolling Balance Postural Appearance Posture: Within Functional Limits Static Sitting Balance Static Sitting-Balance Support: No upper extremity support, Feet supported Static Sitting-Level of Assistance: Standby assist Dynamic Sitting Balance Dynamic Sitting-Balance Support: No upper extremity support, Feet supported Dynamic Sitting-Balance: Anterior/Posterior weight shifts, Lateral weight shifts Level of Assistance: Standby assisst Static Standing Balance Static Standing-Balance Support: Right upper extremity support, Left upper extremity support Static Standing-Level of Assistance: Standby assist Dynamic Standing Balance Dynamic Standing-Balance Support: Right upper extremity support, Left upper extremity support Dynamic Standing-Balance: Lateral weight shifts, Anterior/Posterior weight shifts Dynamic Standing Level of Assistance: Contact guard Self-Care Interventions Self Care/Home Management (ADLs) Time Entry: 8 Self-Care Interventions: OT facilitated out of chair mobility to participate in ADLs and functionalmobility in a upright position. OT provided occasional physical assistance, line management and environmental adaptations to support navigation through room and hallway to decrease risk of falls. OT facilitated task modification for grading activities based on patients' level of ability throughout session. Therapist monitored vitals throughout activity and SP02 remained greater then 90% SP02. Additionally, therapist monitored patients blood pressure in multiple positions and remained stable. Patient educated on importance of simulating daily routines while in house. Therapist encouraged patient to engage in OOB mobility throughout the day to increase tolerance to positional changes, prevent respiratory distress and overall support return to baseline. Feeding Feeding Level of Assistance: Setup Feeding Interventions: Anticipated based on functional performance and clinical judgement. Grooming Grooming Level of Assistance: SBA Grooming Interventions: Anticipated based on functional performance and clinical judgement 2/2 fatigue and weakness. Bathing UE Bathing Level of Assistance: Contact guard LE Bathing Level of Assistance: Contact guard Bathing Interventions: Anticipated based on functional performance and clinical judgement 2/2 fatigue and weakness. UE Dressing UE Dressing Level of Assistance: Supervision UE Dressing Interventions: Patient with shirt donned at start of session. Anticipated based on functional performance and clinical judgement 2/2 fatigue and weakness. Lower Extremity Dressing Pants Level of Assistance: Supervision Sock Level of Assistance: Close supervision LE Dressing Interventions: Patient with pants donned at start of session and reports he was able todress himself with no concerns. Patient then observed to adjust sock with forward reach and good balance/accuracy with task. Toileting Toileting Level of Assistance: SBA Where Assessed: Toilet Toileting Interventions: In preparation for activity demands of toileting, patient completed x 1 trial of low surface sit<>stand to simulate toilet transfer. Patient required SBA, use of RW andverbal cues for hand placement. Patient maintained static standing ~1 minute with SBA for balance. Patient denied need to toilet. Therefore, therapist simulated bed to bathroom distances in home environment. Patient required CGA and use of RW, demonstrating ability to complete ~30 feet with no restbreak. Therapist providing cues for PLB and patient reported desire to return to bed level due to fatigue. Patient was positioned in bed with pillows for comfort and elevation. Spouse reports patient has been ambulating to standard bathroom with rn staff. Standardized Assessments [facility] 6-Click Daily Activities Help from Other: Don/Doff Regular Lower Body Clothings: None Help From Other: Bathing: Little Help From Other: Toileting: Little Help From Other: Don/Doff Upper Body Clothings: None Help From Other: Grooming: None Help From Other: Eating Meals: None [facility] 6 Click - Daily Activities Score: 22 Assessment Patient responded to OT evaluation and treatment session focused on ADL and functional transfer tasks fair this date with rest as needed and vital signs stable. Patient cooperative throughout session, however, remains limited by fatigue, weakness and back pain. Per patient report, patient was previously independent with ADL and mobility tasks, however, is nowrequiring some assistance of physical assistance for safe completion of mobility and self care. Patient demo'd deficits in ADL performance, functional endurance, functional mobility, and would continue to benefit from skilled inpatient OT treatment to address deficits and increase safety and independence. However, patients family will provide assistance upon discharge and patient will be safe to return home with family. Additionally, patient would benefit from Home health OT/PT at discharge to increase independence with functional ADLs, expedite return to valued occupations, increase home safety, and decrease caregiver burden. OT Findings: Impaired ADL performance, Impaired IADL performance, Decreased endurance/ventilation/gas exchange, Impaired balance, Impaired postural/trunk control, Impaired functional mobility Evaluation/Treatment Tolerance: Patient limited by fatigue, Patient limited by pain Rehab Potential: Fair, will monitor progress closely Barriers to Discharge: Comorbidities Eval Complexity Occupational Profile: Expanded review of medical/therapy records and additional review of physical,cognitive, or psychosocial history Performance Deficits: Activities of daily living (ADLs), Instrumental activities of daily living (IADLs) Clinical Decision Making: Moderate Overall Eval complexity: Moderate OT Recommendations Discharge Destination: Home with assistance, Home health PT, Home health OT Discharge Equipment: Rolling walker Plan Progress towards baseline with ADLS/IADLs and functional mobility. Planned OT Interventions ADL retraining, IADL retraining, Balance training, Bed mobility Training, ROM, Stretching, Strengthening, Caregiver education, Functional mobility OT Frequency 2 - 5 times per week OT Duration 2 weeks Goals OT GOAL DETAILS Time Frame OT Goal 1: Pt will be modified independent with total body dressing with AAD PRN. 2 weeks OT Goal 2: Pt will complete toileting including clothing management and personal hygiene with Mod Iand AAD PRN. 2 weeks OT Goal 3: Pt will demonstrate independence in bilateral UE HEP to increase strength and endurance for ADL performance. 2 weeks Written by Estrella Amezquita on 03/10/25 at 3:45 PM. * Progress Notes - Oswald Garrido - 03/10/2025 2:52 PM EDT PHYSICAL THERAPY EVALUATION Patient Name Bryson Teixeira Jr. Session Date 03/10/2025 Total Treatment Time 23 min PT Discharge Recommendations Home with assistance, Home health PT, Home health OT Equipment Recommendations Rolling walker HISTORY Bryson Teixeira Jr. is 59 y.o. male admitted 03/08/2025 for work-up of Acute on chronic respiratory failure with hypoxia. Hospital Course 1. Pneumonia of both lungs due to infectious organism, unspecified part of lung 2. Pancytopenia Procedures (if applicable) Past Medical History Patient has a past medical history of COPD (chronic obstructive pulmonary disease) ([facility]), Dental disease, Hip pain, Hip pain, acute, right, Leg pain, Lower back pain, Shortness of breath, and Wears dentures. Past Surgical History Patient has a past surgical history that includes Back surgery (N/A). PRECAUTIONS Weight Bearing Precautions (if applicable) ROM Restrictions (if applicable) Medical Precautions Yes Medical Precautions: Fall precautions SUBJECTIVE PARTICIPANTS IN CARE Visitors Present Yes Spouse Subjective Report Pt has NOT been: * Ambulating hallway distances since being admitted to the hospital. Pt HAS been: * Ambulating in-room distances to the bathroom with staff * Transferring Bed <> Chair with staff since being admitted to the hospital. Pt remains unaware when pt may be discharged from [facility]. Business Banker (if applicable) Not Applicable HOME LIVING/SET-UP Lives With Spouse, Adult, Son Home Type Mobile home Home Equipment None Home Layout Stairs to enter with rails Number of Stairs: 1 Bathroom Layout Bathroom: Tub/Shower: Tub/Shower combo, Built-in shower seat, Grab bars Bathroom: Toilet: Standard Additional Comments able to provide 24/7 assist. PRIOR LEVEL OF FUNCTION Assist at Home No assist required prior to admission Level of Mobility Ambulatory- community Mobility [place] History of Falls No Overall ADL Performance Independent Additional ADL Performance Detail PATIENT/FAMILY GOALS Patient/Family Goals Statement: To go home. OBJECTIVE / INTERVENTIONS PRESENTATION Oxygen Oxygen Therapy: Supplemental oxygen O2 Delivery Method: Nasal cannula O2 Flow Rate (L/min): 3 L/min Lines and Tubes telemetry Peripheral IV 03/08/25 Anterior;Distal;Right;Upper Arm (Active) Peripheral IV 03/09/25 Right;Medial;Upper Arm (Active) Pre-Session Sitting in chair, Lines intact RN agreeable to therapy evaluation. Post-Session Supine, Head of bed elevated, Lines intact, Bed alarm (zone 1, 2, 3), Call light in reach All needs in reach. Spouse present in room. Bracing (if applicable) PAIN Pain Intensity / Location Pre-Mobility: Pt reports 7/10 low back pain prior to initiation of session. Pain Intensity / Location Post-Mobility: Pt does not report increase in pain following mobility. Prior to PT's departure: * rest was provided * pt was positioned for comfort * pillow support was provided DELIRIUM SCREENING [place] Agitation Sedation Scale (RASS): Alert and calm Confusion Assessment Method-ICU (CAM-ICU/PCAM-ICU) Feature 3: Altered Level of Consciousness: Negative COGNITION Overall Cognitive Status Within Functional Limits Arousal/Alertness Appropriate responses to stimuli Mood/Behavior Alert Orientation Oriented to place, Oriented to time, Oriented to situation, Oriented to person Command Following Single Step Commands: Consistently Multi-Step Commands: Consistently Method of Communication Verbal Additional Observations MOTOR EXAMINATION RANGE OF MOTION Right Upper Within Functional Limits Left Upper Within Functional Limits Right Lower Within Functional Limits Left Lower Within Functional Limits MANUAL MUSCLE TESTING Right Upper (Grossly ~3/5) Left Upper (Grossly ~4/5) Right Lower Within functional limits Hip flexion: 4- Knee Extension: 4 Ankle Dorsiflexion: 5 Left Lower Hip flexion: 4+ Knee Extension: 5 Ankle Dorsiflexion: 5 MUSCLE TONE Right Upper WFL Left Upper WFL Right Lower WFL Left Lower WFL SENSORY EXAMINATION Light Touch Sensation Right Upper Intact Left Upper Intact Right Lower Intact Left Lower Intact THERAPEUTIC ACTIVITY Treatment Minutes 8 BED MOBILITY Level of [place] Physical/Non- physical Assist Adaptive Equipment Utilized Scooting/ Bridging Stand-by assist (x1 lateral scoot to the right) Verbal Cues, Minimal cues - Cues for optimal body placement on bed - Cues for hand placement during transitional movements Bed rails Sit to Supine Stand-by assist Supervision Bed rails TRANSFERS Level of [place] Physical/Non- physical Assist Adaptive Equipment Utilized Sit to Stand Stand-by assist Verbal Cues, Minimal cues - Cues for hand placement during transitional movements Walker, rolling Stand to sit Stand-by assist Verbal Cues, Minimal cues - Cues for optimal body positioning prior to initiation of transfer - Cues for hand placement during transitional movements - Cues for appropriate AD positioning prior to sitting Walker, rolling BALANCE Postural Appearance Posture: Within Functional Limits Level of [place] Balance Support Interventions Static Sit Standby assist No upper extremity support, Feet supported Sitting unsupported in chair and EOB. Pt denies dizziness or lightheadness in sitting. Dynamic Sit Standby assisst No upper extremity support, Feet supported Dynamic Sitting-Balance: Anterior/Posterior weight shifts, Lateral weight shifts Dynamic Sitting - Interventions: Sitting EOB to adjust socks and sitting unsupported in chair for MMT/ROM. Pt with appropriate anterior and lateral weight shifting with forward/inferior reaching and reaching across midline without LOB. Static Stand Standby assist Right upper extremity support, Left upper extremity support x1 stand. Pt with appropriate posture and no report of dizziness following transition from supine to sit. Pt endorses mild SOA and increased WOB prompting cues for PLB with SpO2 >90% throughout. Dynamic Stand Contact guard Right upper extremity support, Left upper extremity support AMBULATION Level of [place] Distance Adaptive Equipment Utilized Ambulation Contact guard assist, Minimal verbal cues 30' followed by a seated rest break Rolling walker Comments Demonstrates narrow DARRYL, mild forward trunk flexion, and downward gaze with ambulation. Ptis able to correct gaze without cues. No report of lightheadedness or dizziness and no LOB noted. Encouraged to continue to ambulate with nursing staff short distances to prevent hosptial acquired wea kness. PT presence was necessary for: * managing lines * progressing patient ambulation distances * monitoring patient vital sign stability * decreasing patient's risk of falling while progressing pt's distances STANDARDIZED ASSESSMENTS [facility] 6-Clicks Mobility Assessment Difficulty patient has turning over in bed (including adjusting bedclothes, sheets, and blankets)?:None Difficulty patient has sitting down on and standing up from a chair with arms (wheelchair, bedside commode, etc.)?: None Difficulty patient has moving from lying on back to sitting on the side of the bed?: None How much help does the patient need moving to and from a bed to a chair (including a wheelchair)?: A little How much help does the patient need to walk in hospital room?: A little How much help does the patient need climbing 3-5 steps with a railing?: A little [facility] 6-Clicks Mobility Assessment Total : 21 ASSESSMENT PT FINDINGS Impairments (if identified) Decreased endurance, ventilation, and/or gas exchange, Impaired gait dynamics/performance, Impaired locomotion, Impaired functional mobility/transfers, Impaired balance, Decreased strength, Pain Activity Limitations (if identified) Inability to ambulate independently, Inability to ambulate community distances, Inability to ambulate household distances, Inability to transfer independently Participation Restrictions (if identified) Self-care, Home management, Community leisure Barriers to Discharge (if identified) Comorbidities PT Diagnosis Impaired Functional Mobility Additional Observations Activity Tolerance: Tolerates 10 - 20 min activity with multiple rests Evaluation/Treatment Tolerance: Patient limited by fatigue Rehab Potential: Good, to achieve stated therapy goals EVAL COMPLEXITY History Profile 1 - 2 personal factors and/or comorbidities Clinical Presentation Evolving clinical presentation with changing characteristics Clinical Decision Making Moderate complexity PT RECOMMENDATIONS Discharge Destination Home with assistance, Home health PT, Home health OT Discharge Equipment Rolling walker Additional Recommendations (if applicable) Pt evaluation is limited by fatigue. PT anticipates that with increased out of bed mobility, pt will be able to safely navigate his home environment and has assist available as needed at home. Pt would benefit from continued skilled therapy once discharged to improve functional mobility and maximize independence at home. PLAN Planned PT Interventions Balance training, Bed mobility training, Postural re-education, Neuromuscular re-education, Gait training, Functional Mobility, Transfer training, Strengthening, Caregiver training PT Frequency 2 - 5 times per week PT Duration 2 weeks PT GOALS PT GOAL DETAILS Time Frame PT Goal 1: Pt will be independent with HEP and d/c recs. 2 weeks PT Goal 2: Pt will independently transfer supine <> sit with HOB flat. 2 weeks PT Goal 3: Pt will transfer sit <> stand and bed <> chair Shai with an assistive deviceas needed. 2 weeks PT Goal 4: Pt will ambulate 320' Shai with an assistive device. 2 weeks PT Goal 5: Pt will negotiate 1 stairs Shai with SUPERVISING FLOORPERSON. 2 weeks Written by Oswald Garrido on 03/10/25 at 3:30 PM. * Query Clarification Note - Kusum Barrera DO - 03/10/2025 11:17 AM EDT Physician Clarification Please review the following and provide your response below. 03/09/25 Hospital Medicine documents Likely due to sepsis/infection . 03/08/25 Presents with Acute hypoxic respiratory failure due to Strep pneumo pneumonia and pancytopenia due to chemo 03/08/25 VS: T-98.3-97.5, HR: 106-95, RR: 14-19 03/08/25 Wbc: 1.11, Lactate 3.2 Treatment 03/08/25 vanc, cefepime and azithromycin, 03/09/25 discontinued vanc, cefepime and azithromycin and started IV Rocephin Please clarify the diagnosis of likely sepsis [x] Sepsis was present and is now resolved. POA. [] Sepsis was present and is still being monitored, evaluated, or treated (indicate if POA). [] Sepsis was ruled out. [] Other (please specify) This documentation will become part of the patient's medical record. * Progress Notes - Kusum Barrera DO - 03/10/2025 11:06 AM EDT Images from the original note were not included. Subjective No acute events overnight. Says his breathing is better today. Still has productive cough. Mostly complaining of significant back pain this AM. No other complaints. Review of Systems Respiratory: Positive for cough. Negative for shortness of breath. Gastrointestinal: Negative for nausea and vomiting. Musculoskeletal: Positive for back pain. Objective Vitals Temp: [36.3 ??C (97.3 ??F)-37.8 ??C (100 ??F)] 36.8 ??C (98.3 ??F) Heart Rate: [93-120] 100 Resp: [16-18] 18 BP: (90-120)/(47-75) 90/47 Physical Exam Vitals reviewed. Constitutional: General: He is not in acute distress. Appearance: Normal appearance. He is ill-appearing (chronically). He is not toxic-appearing. Interventions: Nasal cannula in place. HENT: Head: Normocephalic and atraumatic. Eyes: General: No scleral icterus. Conjunctiva/sclera: Conjunctivae normal. Cardiovascular: Rate and Rhythm: Normal rate and regular rhythm. Heart sounds: Normal heart sounds. No murmur heard. No friction rub. No gallop. Pulmonary: Effort: Pulmonary effort is normal. No respiratory distress. Breath sounds: Normal breath sounds. No wheezing or rhonchi. Chest: Abdominal: Palpations: Abdomen is soft. Tenderness: There is no abdominal tenderness. Musculoskeletal: Right lower leg: No edema. Left lower leg: No edema. Skin: General: Skin is warm and dry. Neurological: General: No focal deficit present. Mental Status: He is alert. Psychiatric: Mood and Affect: Mood normal. Behavior: Behavior normal. Labs in last 18 hours CBC WBC 0.84 (LL) Hb 7.5 (L) Plt 69 (L) Hct 23.4 (L) ANC 0.50 (LL) INR ??, PTT ??, Anti-Xa ?? BMP Na ?? Cl ?? BUN ?? Glu ?? K ?? Co2 ?? Cr ?? Ca ?? iCa ?? Mg ??, Phos ?? Lactate ?? LFT AST ?? AlkPhos ?? T Prot ?? ALK ?? Bili ?? Alb ?? D.Bili ?? Labs personally reviewed. Significant for pancytopenia, normal lactic acid. Assessment & Plan Pneumonia of both lower lobes due to infectious organism Acute on chronic respiratory failure with hypoxia Pancytopenia due to chemotherapy (CMS/HCC) Malignant neoplasm of upper lobe of left lung (CMS/HCC) Dysphagia Squamous cell carcinoma of left lung 59 yo M with PMH of NSCLC, COPD on 2L who was transferred from OSH for pancytopenia and acute on chronic hypoxic respiratory failure. Found to have Strep pneumo pneumonia. On Rocephin. Oxygen requirement improving. # Acute on chronic hypoxic respiratory failure due to Strep pneumo pneumonia - Baseline O2 requirement 2L. Requiring up to 5L on admission. - CXR with bilateral lower lobe airspace disease. - CT PE: negative for PE but showed opacities in lower lobes. - Respiratory viral panel, MRSA nares, Legionella negative. Strep pneumo positive. PLAN: - Continue Rocephin x 7 days due to neutropenia. If ANC improved and afebrile, could transition to PO Augmentin to complete course. - Change Duonebs to PRN. - Continue supplemental O2, wean as able. Goal O2 sat > 88%. Currently on 3L NC. # Pancytopenia secondary to chemo - Hgb stable after transfusion. - Hemodynamically stable, no obvious source of bleeding. - s/p 2 unit pRBCs. PLAN: - Repeat CBC tomorrow. Transfuse for Hgb < 7.0, platelets < 10k, or symptomatic/bleeding. # Immunocompromised secondary to chemo with moderate neutropenia - ANC 500. - Repeat CBC with diff tomorrow and monitor for signs/symptoms of other infection. # NSCLC - First diagnosed 02/2024. Follows with Dr. Zhang. - Previously treated with SBRT. Most recently on carboplatin/paclitaxel/pembro. PLAN: - Medical oncology aware of admission. # Hyponatremia - Mild, asymptomatic. - Repeat BMP intermittently. # Constipation - Continue senna BID with daily Miralax. Discontinue suppository with neutropenia. CHRONIC MEDICAL ISSUES: # GERD: continue PPI # Chronic back pain: continue gabapentin with scheduled Flexeril; increase oxycodone to 5-10 mg PRNand IV Dilaudid for severe, breakthrough pain, monitor for sedation and toxicity while on IV opiates # Insomnia: continue melatonin # BPH: continue tamsulosin RESOLVED: # ?Urinary retention # Lactic acidosis: likely due to sepsis # Dysphagia: speech consulted, MBS without aspiration; okay for regular diet with thin liquids F: PO E: monitor and replace PRN N: regular DVT ppx: pLov Dispo: pending improvement in respiratory status, stable CBC Kusum Barrera DO Division of Hospital Medicine Secure chat preferred Current Scheduled Medications[1] Current Continuous Medications[2] Current PRN Medications[3] Medically Ready for Discharge:Anticipated in 2-4 Days [1] cefTRIAXone, 2 g, Intravenous, q24h cyclobenzaprine, 7.5 mg, Oral, q8h SUPRIYA enoxaparin, 40 mg, Subcutaneous, Daily gabapentin, 800 mg, Oral, TID lidocaine, 1 patch, Apply externally, q24h melatonin, 6 mg, Oral, Nightly pantoprazole, 40 mg, Oral, Daily polyethylene glycol, 17 g, Oral, Daily senna, 2 tablet, Oral, BID sodium chloride, 10 mL, Intravenous, q12h tamsulosin, 0.4 mg, Oral, Daily with dinner [2] [3] PRN medications: HYDROmorphone, ipratropium-albuterol, ondansetron ODT OR ondansetron OR ondansetron, oxyCODONE OR oxyCODONE, Insert peripheral IV AND Saline lock IV AND sodium chloride AND sodium chloride, sodium chloride-sodium bicarbonate * Progress Notes - Bert Knott - 03/10/2025 11:04 AM EDT INITIAL and DISCHARGE MODIFIED BARIUM SWALLOW STUDY Patient Name: Bryson Teixeira Jr. Age: 59 y.o. Today's Date: 03/10/2025 Recommendations: IDDSI level 7 regular food consistencies and IDDSI level 0 thin liquids via cup. NO straw. Single sips. Oral meds as pt prefers. Oral care after meals. No further skilled STRAIGHT SLICING MACHINE OPERATOR services indicated. STRAIGHT SLICING MACHINE OPERATOR to sign off. History Medical History: Bryson Teixeira Jr. is a 59 y.o. male with PMH of NSCLC, COPD on 2 L, chronic lowerback pain who presents with pancytopenia and acute hypoxic respiratory failure He notes that he had chemotherapy a week ago, and since then has been fatigued. He does not move around much, has had a cough since 4 days (although family notes it may have been longer), and has pleuritic chest pain. His baseline oxygen requirement is around 2 L with COPD but it acutely increased to 5 L this morning and he went to [facility]. As per intake, they collected blood cultures, started him on vancomycin and cefepime and transferred here. Was supposed to see Oncology for chemo tomorrow No fevers at home. Last bowel movement was a few days ago and was slightly tarry, but he was on pepto bismol at that time. He has had minimal urine output, only peed this morning. Appetite is preserved however. Complains about back pain, that he has chronically, but is worsened, he feels that is because of being moved around so much today. Current diet: Adult diet Diet texture: Regular; Carbohydrate restriction: Consistent Carb 2 (80 gm max/meal) Subjective Pt is alert and participates well t/o study. Objective Respiratory Status: 3L via nasal cannula Vitals: 03/10/25 0939 BP: Pulse: 100 Resp: 18 Temp: SpO2: Location of procedure: [facility] Projections: lateral view only Oral phase -Lip closure: No labial escape -Tongue Control During Bolus Hold: Cohesive bolus between tongue and palatal seal -Bolus Preparation/Mastication: Timely and efficient -Bolus Transport/Lingual Motion: Brisk -Oral Residue/Amount: Less than half the bolus remaining -Oral Residue Location: Tongue, Palate, and Lateral sulci Pharyngeal phase: -Swallow initiation: WFL -Soft palate elevation: No bolus between soft palate/pharyngeal wall -Laryngeal elevation: Partial -Anterior hyoid excursion: Partial -Epiglottic inversion: Complete -Vestibule closure: Incomplete -Stripping wave: Diminished -Pharyngeal contraction: not assessed in lateral view -BOT retraction: Incomplete - Pharyngeal residue amount: Collection - Pharyngeal residue location: BOT, Valleculae, Lateral channels, and Pyriform sinuses -UES: Complete distension PENETRATION/ASPIRATION: Consistency & Method of Administration 1 2 3 4 5 6 7 8 Comments IDDSI level 0 thin liquids spoon [x] [] [] [] [] [] [] [] IDDSI level 0 thin liquids cup [x] [] [] [] [] [] [] [] IDDSI level 0 thin liquids straw [x] [] [x] [] [] [] [] [] During; doesn't clear with cough IDDSI level 4 pureed food consistencies [x] [] [] [] [] [] [] [] IDDSI level 7 regular food consistencies [x] [] [] [] [] [] [] [] Description of Penetration/Aspiration Scale: 1. Material does not enter airway. 2. Material enters airway, remains above the vocal folds, and is ejected from the airway. 3. Material enters airway, remains above the vocal folds, and is not ejected from the airway. 4. Material enters airway, contacts the vocal folds, and is ejected from the airway. 5. Material enters airway, contacts the vocal folds, and is not ejected from the airway. 6. Material enters airway, passes below the vocal folds, and is ejected from trachea. 7. Material enters airway, passes below the vocal folds, and is not ejected from the trachea despite effort. 8. Material enters airway, passes below the vocal folds, and no effort is made to eject. (Olayinka Enamorado, et al. A penetration-aspiration scale. Dysphagia. 1996;11(2):93-8.) *The Dysphagia Outcome Severity Scale (AVINASH; [place], et al, 1999). The AVINASH is a 7-point scale developed to systematically rate the functional severity of dysphagia based on objective assessment. Assessment Patient presents with grossly intact oropharyngeal per the AVINASH*. Oral phase is c/b reduced lingualstrength/sensation resulting in post swallow residual. Mastication is adequate. Pharyngeal phase isc/b impaired airway protection and pharyngeal inefficiency 2/2 biomechanical deficits noted above. A single episode of thin via straw penetration during the swallow occurs (1/2 straw sip trials). Pt reports he does not typically drink from a straw. Post swallow residual is present but reduced by spontaneous second swallow. Residual is likely r/t to reduced bolus propulsion through the pharynx. Given pt's performance, recommend continuation of current PO diet. No further skilled STRAIGHT SLICING MACHINE OPERATOR services indicated at this time. STRAIGHT SLICING MACHINE OPERATOR to sign off. Patient Education: verbal education Results and recommendations of this evaluation were communicated to: RN/Team Plan / Recommendations Diet recommendations: IDDSI level 7 regular food consistencies and IDDSI level 0 thin liquids via cup. NO straw. Single sips. Oral meds as pt prefers. Oral care after meals. No further skilled STRAIGHT SLICING MACHINE OPERATOR services indicated. STRAIGHT SLICING MACHINE OPERATOR to sign off. * Care Plan - Ministerio Briscoe RN - 03/10/2025 10:03 AM EDT Problem: Adult Inpatient Plan of Care Goal: Plan of Care Review Outcome: Ongoing, Progressing Flowsheets (Taken 03/10/2025 1002) Progress: improving Plan of Care Reviewed With: patient spouse Goal: Patient-Specific Goal (Individualized) Outcome: Ongoing, Progressing Flowsheets (Taken 03/10/2025 1002) Patient/Family-Specific Goals (Include Timeframe): pt will express adequate pain management this shift Individualized Care Needs: ask questions safety pain management Anxieties, Fears or Concerns: treatment plan MBS lower back pain Goal: Absence of Hospital-Acquired Illness or Injury Outcome: Ongoing, Progressing Goal: Optimal Comfort and Wellbeing Outcome: Ongoing, Progressing Goal: Readiness for Transition of Care Outcome: Ongoing, Progressing * Care Plan - Naomy Ivy RN - 03/09/2025 10:34 PM EDT Problem: Adult Inpatient Plan of Care Goal: Plan of Care Review Outcome: Ongoing, Progressing Flowsheets (Taken 03/09/20251999) Progress: improving Plan of Care Reviewed With: patient spouse Goal: Patient-Specific Goal (Individualized) 03/09/20252233 by Naomy Ivy RN Flowsheets (Taken 03/09/20251999) Patient/Family-Specific Goals (Include Timeframe): patient will remain within pain goal using repositiong or medication during this shift Individualized Care Needs: encouraged to ask questions and provided education Anxieties, Fears or Concerns: treatment plan 03/09/20252230 by Naomy Ivy RN Outcome: Ongoing, Progressing Goal: Absence of Hospital-Acquired Illness or Injury Outcome: Ongoing, Progressing Intervention: Identify and Manage Fall Risk Flowsheets (Taken 03/09/20251999) Safety Promotion/Fall Prevention: clutter-free environment maintained nonskid shoes/slippers when out of bed Intervention: Prevent Skin Injury Flowsheets (Taken 03/09/20251999) Body Position: left weight shifting Intervention: Prevent Infection Flowsheets (Taken 03/09/20251999) Infection Prevention: hand hygiene promoted Goal: Optimal Comfort and Wellbeing Outcome: Ongoing, Progressing Intervention: Provide Person-Centered Care Flowsheets (Taken 03/09/20251999) Trust Relationship/Rapport: care explained choices provided emotional support provided empathic listening provided questions answered questions encouraged reassurance provided thoughts/feelings acknowledged Goal: Readiness for Transition of Care Outcome: Ongoing, Progressing Intervention: Mutually Develop Transition Plan Flowsheets (Taken 03/09/20251999) Equipment Needed After Discharge: oxygen Equipment Currently Used at Home: oxygen Patient/Family Anticipates Transition to: home with family * Care Plan - Nicol Petersen RN - 03/09/2025 4:27 PM EDT Problem: Adult Inpatient Plan of Care Goal: Plan of Care Review Outcome: Ongoing, Progressing Flowsheets (Taken 03/09/20251624) Plan of Care Reviewed With: patient spouse Goal: Patient-Specific Goal (Individualized) Outcome: Ongoing, Progressing Goal: Absence of Hospital-Acquired Illness or Injury Outcome: Ongoing, Progressing Intervention: Prevent Skin Injury Flowsheets (Taken 03/09/20251624) Body Position: right turned side-lying 30 degrees Intervention: Prevent and Manage VTE (Venous Thromboembolism) Risk Flowsheets (Taken 03/09/2025 1625) VTE Prevention/Management: education provided SCDs (sequential compression devices) on Goal: Optimal Comfort and Wellbeing Outcome: Ongoing, Progressing Intervention: Monitor Pain and Promote Comfort Flowsheets (Taken 03/09/2025 1625) Pain Management Interventions: therapeutic presence position adjusted pillow support provided Goal: Readiness for Transition of Care Outcome: Ongoing, Progressing Problem: Adult Inpatient Plan of Care Goal: Patient-Specific Goal (Individualized) Outcome: Ongoing, Progressing Problem: Adult Inpatient Plan of Care Goal: Absence of Hospital-Acquired Illness or Injury Outcome: Ongoing, Progressing Intervention: Prevent Skin Injury Flowsheets (Taken 03/09/2025 1625) Body Position: right turned side-lying 30 degrees Intervention: Prevent and Manage VTE (Venous Thromboembolism) Risk Flowsheets (Taken 03/09/2025 1625) VTE Prevention/Management: education provided SCDs (sequential compression devices) on Problem: Adult Inpatient Plan of Care Goal: Absence of Hospital-Acquired Illness or Injury Intervention: Prevent Skin Injury Flowsheets (Taken 03/09/2025 1625) Body Position: right turned side-lying 30 degrees Problem: Adult Inpatient Plan of Care Goal: Absence of Hospital-Acquired Illness or Injury Intervention: Prevent and Manage VTE (Venous Thromboembolism) Risk Flowsheets (Taken 03/09/2025 1625) VTE Prevention/Management: education provided SCDs (sequential compression devices) on Problem: Adult Inpatient Plan of Care Goal: Optimal Comfort and Wellbeing Outcome: Ongoing, Progressing Intervention: Monitor Pain and Promote Comfort Flowsheets (Taken 03/09/2025 1625) Pain Management Interventions: therapeutic presence position adjusted pillow support provided Problem: Adult Inpatient Plan of Care Goal: Optimal Comfort and Wellbeing Intervention: Monitor Pain and Promote Comfort Flowsheets (Taken 03/09/2025 1625) Pain Management Interventions: therapeutic presence position adjusted pillow support provided Problem: Adult Inpatient Plan of Care Goal: Readiness for Transition of Care Outcome: Ongoing, Progressing * Progress Notes - Abbey Conti RN - 03/09/2025 3:03 PM EDT Case Management Adult Initial Progress Note Bryson Puneet Musa 59 y.o. male CSN: [id number] Admission: 03/08/2025 4:56 PM Primary Problem: Pneumonia of both lower lobes due to infectious organism Couture Alterations Dressmaker reviewed chart and spoke with patient and his /sister to complete this Initial Case Management Assessment. PCP: Constantine Stiles APRN Emergency Contact: Extended Emergency Contact Information Primary Emergency Contact: Milagro Teixeira Address: [address] Mobile Relation: Spouse Preferred language: Ecuadorean Business Banker needed? No Secondary Emergency Contact: LISA RON Mobile Relation: Sister Preferred language: Ecuadorean Business Banker needed? No Insurance: Primary Visit Coverage Payer Plan Sponsor Code Group Number Group Name [employer] Primary Visit Coverage Subscriber Subscriber ID Subscriber Name Subscriber N Subscriber Address [id number] Bryson Teixeira [id number] [facility] [address] Patient information: admit to with PMH of NSCLC, COPD on 2 L, chronic lower back pain who presents with pancytopenia and acute hypoxic respiratory failure. Confirmed home address and insurance. and sister reports home assistance and transport. Pharmacy: [facility] Primary Caregiver: Self Accompanied by/Relationship: and sister, daughter Support System: Immediate family Daily Living Activities: Functional Status: Minimum assistance Living Arrangements: Spouse/Significant other Type of Residence: Private residence [address] [facility] [place] [address] Current DME: Equipment Currently Used at Home: oxygen Current DME Provider: [facility] home oxygen/portable tank Income Information: Income Source: Disabled Income/Expense Information: Income meets expenses Current Resources Utilized: None Housing Circumstances-Z Codes: Housing Circumstances (select all that apply): Low Income (101-300% Federal Poverty Guidlines) - Z596 Patient Referred to: pending PT/OT recommendations. Anticipated Discharge Date: 72 plus hr Patient's Discharge Goal: TBD Assistance Available at Discharge: TBD Discharge Transport: family Follow Up Transport: family Home Health / Home Infusion / Outpatient Dialysis Services: Current DME Provider: [facility] home oxygen/portable tank Living Will/Advance Directive/Power of Sleeve Separator /Guardian: non reported. Pre-existing DNR/DNI Order: No Additional Comments: per team, not medically ready for discharge. Ongoing work up and currently on IV ABX. Abbey Conti, RN * Progress Notes - Kusum Barrera, DO - 03/09/2025 2:59 PM EDT Subjective No acute events overnight. Feeling better this AM. Breathing is better and down to 3L NC. Still hassome cough. No other complaints. Review of Systems Respiratory: Positive for cough. Negative for shortness of breath. Gastrointestinal: Negative for blood in stool, nausea and vomiting. Objective Vitals Temp: [36.4 ??C (97.5 ??F)-36.8 ??C (98.3 ??F)] 36.7 ??C (98 ??F) Heart Rate: [70-106] 95 Resp: [12-20] 14 BP: (77-134)/(53-80) 134/78 Physical Exam Vitals reviewed. Constitutional: General: He is not in acute distress. Appearance: Normal appearance. He is ill-appearing (chronically). He is not toxic-appearing. Interventions: Nasal cannula in place. HENT: Head: Normocephalic and atraumatic. Eyes: General: No scleral icterus. Conjunctiva/sclera: Conjunctivae normal. Cardiovascular: Rate and Rhythm: Normal rate and regular rhythm. Heart sounds: Normal heart sounds. No murmur heard. No friction rub. No gallop. Pulmonary: Effort: Pulmonary effort is normal. No respiratory distress. Breath sounds: Normal breath sounds. No wheezing or rhonchi. Abdominal: Palpations: Abdomen is soft. Tenderness: There is no abdominal tenderness. Musculoskeletal: Right lower leg: No edema. Left lower leg: No edema. Skin: General: Skin is warm and dry. Neurological: General: No focal deficit present. Mental Status: He is alert. Psychiatric: Mood and Affect: Mood normal. Behavior: Behavior normal. Labs in last 18 hours CBC WBC 0.94 (LL) Hb 6.3 (LL) Plt 101 (L) Hct 19.6 (L) ANC 0.60 (LL) INR ??, PTT ??, Anti-Xa ?? BMP Na 135 (L) Cl 100 BUN 15 Glu 251 (H) K 4.1 Co2 19 (L) Cr 0.64 (L) Ca 9.0 iCa ?? Mg ??, Phos ?? Lactate ?? LFT AST 32 AlkPhos 202 (H) T Prot 6.8 ALK 52 (H) Bili 0.7 Alb ?? D.Bili ?? Labs personally reviewed. Significant for pancytopenia, stable renal function, elevated ALT. Strep pneumo positive. Legionella negative. Respiratory viral panel negative. UA unremarkable. CXR personally reviewed and shows emphysema and interstitial opacities in base of lungs. Assessment & Plan Pneumonia of both lower lobes due to infectious organism Acute on chronic respiratory failure with hypoxia Pancytopenia due to chemotherapy (CMS/HCC) Malignant neoplasm of upper lobe of left lung (CMS/HCC) Dysphagia Squamous cell carcinoma of left lung 59 yo M with PMH of NSCLC, COPD on 2L who was transferred from OSH for pancytopenia and acute on chronic hypoxic respiratory failure. # Acute on chronic hypoxic respiratory failure due to Strep pneumo pneumonia - Baseline O2 requirement 2L. Requiring up to 5L on admission. - CXR with bilateral lower lobe airspace disease. - CT PE: negative for PE but showed opacities in lower lobes. - Respiratory viral panel, MRSA nares, Legionella negative. Strep pneumo positive. PLAN: - Discontinue vanc as MRSA nares negative. - Discontinue azithromycin and cefepime as Strep pneumo most likely cause. Start Rocephin x 5-7 days (may air on longer side due to neutropenia). - Continue scheduled Duonebs for today. - Continue supplemental O2, wean as able. Goal O2 sat > 88%. Currently on 3-4L NC. # Pancytopenia secondary to chemo - Hgb 6.3 this AM. - Hemodynamically stable, no obvious source of bleeding. - s/p 1 unit pRBCs on admission. PLAN: - Repeat CBC tomorrow. Transfuse for Hgb < 7.0, platelets < 10k, or symptomatic/bleeding. 1 unit pRBCs today. # Immunocompromised secondary to chemo with moderate neutropenia - ANC 600. - Repeat CBC with diff tomorrow and monitor for signs/symptoms of other infection. # NSCLC - First diagnosed 02/2024. Follows with Dr. Zhang. - Previously treated with SBRT. Most recently on carboplatin/paclitaxel/pembro. PLAN: - Medical oncology aware of admission. # Dysphagia - Speech consulted. Recommended to continue current diet and consider MBS. - MBS ordered. # Lactic acidosis, improving - Likely due to sepsis/infection. - Repeat lactic acid tomorrow. # Hyponatremia - Mild, asymptomatic. - Repeat BMP intermittently. # ?Urinary retention - Continue tamsulosin. # Constipation - Continue senna BID with daily Miralax. Discontinue suppository with neutropenia. CHRONIC MEDICAL ISSUES: # GERD: continue PPI # Chronic back pain: continue gabapentin with PRN Flexeril, stop scheduled Tylenol with neutropenia # Insomnia: continue melatonin F: PO E: monitor and replace PRN N: regular DVT ppx: pLov Dispo: pending improvement in respiratory status Kusum Barrera DO Division of Hospital Medicine Secure chat preferred Current Scheduled Medications[1] Current Continuous Medications[2] Current PRN Medications[3] Medically Ready for Discharge:Anticipated in 2-4 Days [1] cefTRIAXone, 2 g, Intravenous, q24h enoxaparin, 40 mg, Subcutaneous, Daily gabapentin, 800 mg, Oral, TID ipratropium-albuterol, 3 mL, Nebulization, q6h RT lidocaine, 1 patch, Apply externally, q24h melatonin, 6 mg, Oral, Nightly pantoprazole, 40 mg, Oral, Daily polyethylene glycol, 17 g, Oral, Daily senna, 2 tablet, Oral, BID sodium chloride, 10 mL, Intravenous, q12h tamsulosin, 0.4 mg, Oral, Daily with dinner [2] [3] PRN medications: cyclobenzaprine, HYDROmorphone, ondansetron ODT OR ondansetron OR ondansetron, oxyCODONE, Insert peripheral IV AND Saline lock IV AND sodium chloride AND sodium chloride, sodium chloride-sodium bicarbonate * Consults - Estrella Kelly RD - 03/09/2025 1:46 PM EDTAssociated Order(s): IP CONSULT TO NUTRITION SERVICES Adult Nutrition Evaluation Note Bryson Teixeira Jr. 59 y.o. male CSN: [id number] Room/Bed 508/508 Nutrition evaluation type: assessment Reason for evaluation: provider consult Hospital course: 59 yo M with significant history for COPD, NSCLC presents with pancytopenia and acute hypoxic respiratory failure. RELL coon 03/09- continue current PO diet at team discretion pending MBS. Past medical/ surgical history: Past Medical History[1] Surgical History[2] Social history: Additional comments: 03/09: Pt currently in ED. Vitals and Basic Assessment: BP: 134/78 Temp: 36.7 ??C (98 ??F) Oxygen Therapy: Supplemental oxygen O2 Delivery Method: Nasal cannula India Coma Scale Score: 15 Benja Scale Score: 19 Most Recent BM Date: 03/09/25 GI Symptoms: Constipation Allergies: NKFA Medications: Current Medications[3] Labs: Labs in last 18 hours CBC WBC 0.94 (LL) Hb 6.3 (LL) Plt 101 (L) Hct 19.6 (L) ANC 0.60 (LL) INR ??, PTT ??, Anti-Xa ?? BMP Na 135 (L) Cl 100 BUN 15 Glu 251 (H) K 4.1 Co2 19 (L) Cr 0.64 (L) Ca 9.0 iCa ?? Mg ??, Phos ?? Lactate ?? LFT AST 32 AlkPhos 202 (H) T Prot 6.8 ALK 52 (H) Bili 0.7 Alb ?? D.Bili ?? Lab Results Component Value Date HGBA1C 6.6 (H) 01/19/2025 Anthropometrics: Height: 175.3 cm (5' 9.02 ) Weight: 60.4 kg (133 lb 2.5 oz) BMI (Calculated): 19.66 Weight Evaluation: Normal (BMI 18.5-24.9) Thatcher Body Weight (kg): 72.7 Percent Thatcher Body Weight: 83 Wt Readings from Last 10 Encounters: 03/08/25 60.4 kg (133 lb 2.5 oz) 03/02/25 58.9 kg (129 lb 13.6 oz) 03/02/25 59 kg (130 lb 1.1 oz) 02/09/25 62.5 kg (137 lb 12.6 oz) 02/09/25 62.8 kg (138 lb 7.2 oz) 01/19/25 66.5 kg (146 lb 9.7 oz) 01/12/25 65.8 kg (145 lb 1 oz) 12/27/24 67.1 kg (147 lb 14.9 oz) 12/22/24 68.1 kg (150 lb 2.1 oz) 12/20/24 68.2 kg (150 lb 5.7 oz) Per EMR, pt has lost 7.8 kg in 2-3 months (11%) Estimated Needs: Metabolic Cart Study Results: Current Nutrition Intake: Diet Supplements: None Diet Order: Adult Diet Diet Texture: Regular Percent Meals Eaten (%): establishing PO Diet Experience and Nutrition History: Diet Education Provided: Will monitor Pertinent home medications: Moravian needs: Nutrition Focused Physical Exam: Unable to Complete Exam: (Pt in ED) Physical exam performed on (date): Weight Loss: 11% in 2-3 months per EMR Assessment of Malnutrition: Malnutrition Identified: Additional Information Needed Nutrition Problem: Inadequate oral intake related to decreased appetite, concern for dysphagia as evidenced by 11% weight loss in 2-3 months. Status of Nutrition Diagnosis: New Nutrition Interventions and Recommendations: - Regular diet pending MBS - Add CC2 modification - Boost Glucose Control TID Nutrition Monitoring and Goals: - Tolerate PO intake >75% - NFPE as able next follow up - Will monitor weight, skin integrity, PO intake/enteral infusion, labs, I&O, and follow up perdepartment acuity. Acuity Level: [address] [1] Past Medical History: Diagnosis Date COPD (chronic obstructive pulmonary disease) ([facility]) Dental disease full dentures Hip pain Hip pain, acute, right Leg pain Lower back pain Shortness of breath Wears dentures [2] Past Surgical History: Procedure Laterality Date BACK SURGERY N/A [3] Current Facility-Administered Medications: bisacodyl (Dulcolax) suppository 10 mg, 10 mg, Rectal, Daily, Luiza Castro MD, 10 mg at cefTRIAXone (Rocephin) 2 g in sodium chloride 0.9% 100 mL IVPB (vial adapter required), 2 g, Intravenous, q24h, Kusum Barrera DO, Last Rate: 220 mL/hr at 03/09/25 1256, 2 g at 03/09/25 1256 cyclobenzaprine (Flexeril) tablet 5 mg, 5 mg, Oral, TID PRN, Yonas Bright MBBS, 5 mg at 03/09/25 1301 enoxaparin (Lovenox) syringe 40 mg, 40 mg, Subcutaneous, Daily, Yonas Bright MBBS, 40 mg at03/09/25 0921 gabapentin (Neurontin) capsule 800 mg, 800 mg, Oral, TID, Yonas Bright MBBS, 800 mg at 03/09/25 0921 HYDROmorphone (Dilaudid) injection 0.5 mg, 0.5 mg, Intravenous, q3h PRN, Yonas Bright MBBS,0.5 mg at 03/09/25 0919 ipratropium-albuterol (Duo-Neb) 0.5-2.5 mg/3 mL nebulizer solution 3 mL, 3 mL, Nebulization, q6h RT, Yonas Bright MBBS, 3 mL at 03/09/25 0834 lidocaine (Lidoderm) 5 % patch 1 patch, 1 patch, Apply externally, q24h, Frame, Luiza Shields MD, 1 patch at 03/08/25 2114 melatonin tablet 6 mg, 6 mg, Oral, Nightly, Yonas Bright MBBS, 6 mg at 03/08/25 2221 ondansetron ODT (Zofran-ODT) disintegrating tablet 4 mg, 4 mg, Oral, q6h PRN OR ondansetron (Zofran) injection 4 mg, 4 mg, Intravenous, q6h PRN OR ondansetron (Zofran) 4 MG/5ML solution 4 mg,4 mg, Oral, q6h PRN, Yonas Bright MBBS oxyCODONE (Roxicodone) immediate release tablet 5 mg, 5 mg, Oral, q4h PRN, Yonas Bright MBBS, 5 mg at 03/09/25 1301 pantoprazole (Protonix) EC tablet 40 mg, 40 mg, Oral, Daily, Yonas Bright MBBS, 40 mg at 03/09/25 0921 polyethylene glycol (Miralax) packet 17 g, 17 g, Oral, Daily, Yonas Bright MBBS, 17 g at 03/09/25 09 senna (Senokot) tablet 17.2 mg, 2 tablet, Oral, Nightly, Yonas Bright MBBS, 17.2 mg at 03/08/252112 Insert peripheral IV, , , Once AND Saline lock IV, , , Once AND sodium chloride 0.9 % flush10 mL, 10 mL, Intravenous, q12h, 10 mL at 03/09/25 09 AND sodium chloride 0.9 % flush 10 mL, 10 mL, Intravenous, PRN, Yonas Bright MBBS sodium chloride-sodium bicarbonate (Salt/Soda) oral rinse 15 mL, 15 mL, Swish & Spit, 4x daily PRN, Yonas Bright MBBS tamsulosin (Flomax) 24 hr capsule 0.4 mg, 0.4 mg, Oral, Daily with dinner, Yonas Bright MBBS Current Outpatient Medications: albuterol 108 (90 Base) [...] on 03/02/2025), Disp: 24 tablet, Rfl: 0 docusate sodium (Colace) 100 MG capsule, Take 1 capsule by mouth daily., Disp: , Rfl: gabapentin (Neurontin) 600 MG tablet, Take 1 tablet (600 mg) by mouth 2 (two) times a day. (Patientnot taking: Reported on 03/02/2025), Disp: , Rfl: gabapentin (Neurontin) 800 MG tablet, Take 1 tablet (800 mg) by mouth 2 (two) times a day., Disp: ,Rfl: guaiFENesin (MUCINEX PO), Take by mouth 2 (two) times a day if needed. (Patient not taking: Reported on 03/02/2025), Disp: , Rfl: ibuprofen 200 MG tablet, [...] on 03/02/2025), Disp: 15 tablet, Rfl: 0 ondansetron (Zofran) [...] on 03/02/2025), Disp: 60 tablet, Rfl: 2 Stiolto Respimat 2.5-2.5 MCG/ACT aerosol solution inhaler, 1 (one) time each day., Disp: , Rfl: tamsulosin (Flomax) 0.4 MG 24 hr capsule, Take by mouth daily. (Patient not taking: Reported on 03/02/2025), Disp: , Rfl: Vraylar 1.5 MG capsule, Take 1 capsule (1.5 mg) by mouth daily., Disp: , Rfl: * Progress Notes - Bert Knott - 03/09/2025 11:18 AM EDT Speech Language Pathology Clinical Swallow Initial Evaluation Patient Name: Bryson Teixeira Jr. Age: 59 y.o. Today's Date: 03/09/2025 Recommendations: Continue current PO diet per team discretion. MBS study to r/o pharyngeal dysphagia per team discretion. Oral meds as pt prefers. Oral care after meals. STRAIGHT SLICING MACHINE OPERATOR to follow if team pursuesMBS study. History/Background Information Bryson Teixeira Jr. is a 59 y.o. male with PMH of NSCLC, COPD on 2 L, chronic lower back pain who presents with pancytopenia and acute hypoxic respiratory failure He notes that he had chemotherapy a week ago, and since then has been fatigued. He does not move around much, has had a cough since 4 days (although family notes it may have been longer), and has pleuritic chest pain. His baseline oxygen requirement is around 2 L with COPD but it acutely increased to 5 L this morning and he went to [facility]. As per intake, they collected blood cultures, started him on vancomycin and cefepime and transferred here. Was supposed to see Oncology for chemo tomorrow No fevers at home. Last bowel movement was a few days ago and was slightly tarry, but he was on pepto bismol at that time. He has had minimal urine output, only peed this morning. Appetite is preserved however. Complains about back pain, that he has chronically, but is worsened, he feels that is because of being moved around so much today. Problem List[1] Past Medical History[2] Surgical History[3] Current diet: Adult diet Diet texture: Regular Subjective Bryson Teixeira Jr. was alert and cooperative. Identified by name and date of . RN provided verbal consent for evaluation. present t/o. Objective Current diet: Adult diet Diet texture: Regular Respiratory Status: 4L via nasal cannula Vitals: 03/09/25 1100 BP: 134/78 Pulse: 95 Resp: 14 Temp: 36.7 ??C (98 ??F) SpO2: 96% Relevant Imaging: XR Chest findings/impressions: Emphysema with scattered areas of scarring with stable appearing left upper lobe nodule. Prominent left hilum consistent with adenopathy better seen on previous CT scan. Bilateral lower lobe airspace disease which could be due to pneumonia and/or aspiration. Scales: Karthaus Coma Scale: current 15 Direction Following: Follows 1 step directions Oral Mechanism Report: Dentition: completely edentulous; has dentures but reports not typically wearing them during food intake Oral hygiene: WFL Focused Cranial Nerve Exam: Trigeminal Nerve (V): facial sensation intact and mandible strength/ROM intact Facial Nerve (VII): WFL Vagus (X): intact palate elevation and volitional cough intact Spinal Accessory (XI): Not assessed Hypoglossal Nerve (XII): WFL Laryngeal Function Exam: Secretion Management: adequate Vocal Quality: WFL Cough: - Volitional adequate - Reflexive unable to elicit with PO intake Oral Care Completed: no Oral Feeding Trials: Positionin degrees, upright Feeding assistance: independent, self-fed Consistencies Administered: thin liquid via cup, puree via teaspoon, and dry solid consistency Oral Stage: adequate anterior oral containment, adequate labial seal around utensil/straw, adequatemastication, and adequate oral clearance Pharyngeal Stage: no overt s/sx of aspiration and no patterns of pharyngeal dysphagia 90 mL water test (Lupe & Jeovanyr, 2014): pass Chronic dysphagia/aspiration/aspiration PNA risk factors: NSCLC, COPD on 2L Clinical signs of possible chronic dysphagia: denied Acute dysphagia/aspiration/aspiration PNA risk factors: hypoxic respiratory failure, concern for PNA vs aspiration on imaging Assessment Summary: Patient presents with no overt s/sx of aspiration or patterns of dysphagia in setting of acute respiratory failure with chronic risk factors including NSCLC. Imaging concerns for PNA vs aspiration. Pt passes the 90 ml water test indicating lower aspiration risk. MBS study recommended per team discretion. Continue with current PO diet per team discretion. Prognosis: Good for improved function with skilled speech pathology services focusing on stated goals pending team decision for MBS. Patient Education: Pt/family member(s) acknowledge information provided verbally. Results and recommendations of this evaluation were communicated to: RN/Team Plan / Recommendations F/u Imaging: MBS Residential Goals: Consume safest, least restrictive PO diet without acute dysphagia related pulmonary compromise. Short Term Goals: Participate in MBS to assess swallowing physiology and establish a treatment plan. (Pending team decision.) Bert Knott MA, CCC-STRAIGHT SLICING MACHINE OPERATOR, BCS-S Speech Language Pathologist [1] Patient Active Problem List Diagnosis Low back pain Spinal stenosis of lumbar region with neurogenic claudication DDD (degenerative disc disease), lumbar Facet arthropathy, lumbar Herniated nucleus pulposus, L3-4 right Chronic obstructive pulmonary disease, unspecified (CMS/HCC) Malignant neoplasm of upper lobe of left lung (CMS/HCC) Squamous cell carcinoma of left lung Second hand smoke exposure Dysphagia Neck pain Encounter for antineoplastic chemotherapy Antineoplastic chemotherapy induced anemia Pneumonia of both lower lobes due to infectious organism [2] Past Medical History: Diagnosis Date COPD (chronic obstructive pulmonary disease) (CMS/HCC) Dental disease full dentures Hip pain Hip pain, acute, right Leg pain Lower back pain Shortness of breath Wears dentures [3] Past Surgical History: Procedure Laterality Date BACK SURGERY N/A * Progress Notes - Irma Dorado PharmD - 03/09/2025 10:34 AM EDT Pharmacokinetic Consult - Therapeutic Drug Monitoring HPI and Hospital Course: Brysno Teixeira Jr. is a 59 y.o. male presenting with pneumonia. Vancomycin therapy has been discontinued per primary team. Pharmacist will sign off from dosing and monitoring vancomycin. Please re-order a pharmacist to dose consult or discuss with your team pharmacist if re- initiation of vancomycin therapy is needed in the future. Submitted by: Irma Dorado PharmD 03/09/2025 10:33 AM * Procedures - Kerri Rodriguez RN - 03/09/2025 9:07 AM EDTAssociated Order(s): Insert peripheral IV Insert peripheral IV Performed by: Kerri Rodriguez RN Authorized by: Kusum Barrera DO Hand hygiene: Hand hygiene performed prior to insertion Inserted using aseptic techniques: Yes Preparation: Skin prepped with chg Orientation: Right, upper and medial Location: Arm Catheter placed: Peripheral IV Catheter size: 20g/2.00in Line Technique: Ultrasound Guidance Number of attempts: 1 IV flushes: Without difficulty and positive blood return noted and IV luer locked Patient tolerance: Patient tolerated the procedure well and there were no complications Patient comfort measures used: Distraction and position of comfort IV site covered with: Transparent semipermeable dressing Education provided to: Patient Comments: Labs collected at time of IV insertion. Pertinent imaging sent via PACS. * Progress Notes - Tal Evans, PharmD - 03/08/2025 8:56 PM EDT Pharmacokinetic Consult - Therapeutic Drug Monitoring HPI and Hospital Course: Bryson Teixeira Jr. is a 59 y.o. male presenting with pneumonia who was started on IV vancomycin for septicemia. Pharmacy was consulted for management of vancomycin. Dose History: Recent Vancomycin Admin No antibiotic orders with administrations found. Wt Readings from Last 1 Encounters: 03/08/25 60.4 kg (133 lb 2.5 oz) BMI: 19.65 kg/m?? Creatinine, Plasma (mg/dL) Date/Time Value 03/08/2025 1726 0.59 (L) 03/02/2025 0907 0.76 02/09/2025 1122 0.81 Estimated Creatinine Clearance: 112.3 mL/min (A) (by C-G formula based on SCr of 0.59 mg/dL (L)). Assessment Estimated kinetic evaluation utilizing population kinetics: Vancomycin Dosing Method Vancomycin Dose Calculation Method Area under the curve (AUC) dosing General Parameters for Vancomycin Dose Calculation (AUC) Dosing Weight 60.4 kg (133 lb 2.5 oz) Vancomycin clearance calculation method Matzke equation Administer over 60 minutes AUC 24 hr goal (mg-hr/L) 500 mg??hr/L Estimated creatinine clearance (mL/min 112.3 mL/min Matzke Equation Parameters for Vancomycin Dose Calculation (AUC) Estimated vancomycin Vd (0.7 L/kg typically) 0.7 L/kg (Typical) Crass Equation Parameters for Vancomycin Dose Calculation (AUC) Serum creatinine (mg/dL) 0.59 mg/dL Recommended Initial Vancomycin Dosing Estimated Ke (hr ^-1) 0.0976 hr^-1 Estimated half-life (hr) 7.1 hr Estimated vancomycin Cl (L/hr) 4.127 Recommended TDD (mg) 2063.5 Plan 1. Recommend loading dose of 1250 mg IV once. Antibiotics ordered but not administered at OSH priorto transfer. 2. Recommend initiating vancomycin 1000 mg IV every 12 hours to target an AUC of 400-600. 3. Monitor renal function (Scr and BUN) and UOP at least 2-3x/week or more frequently if renal function changes. 4. Obtain vancomycin levels around the 4th dose of new regimen if therapy is to be continued. Pharmacy will continue to follow. Submitted by: Tal Evans PharmD 03/08/2025 8:54 PM * H&P - Yonas Bright MBBS - 03/08/2025 7:32 PM EDTAssociated Order(s): Consult to [facility] Images from the original note were not included. Hospital Medicine History & Physical Consult to [facility] Consult performed by: Yonas Bright MBBS Consult ordered by: Kayleigh Carter MD Subjective 03/08/2025 Chief Complaint: No chief complaint on file. History Of Present Illness Bryson Teixeira Jr. is a 59 y.o. male with PMH of NSCLC, COPD on 2 L, chronic lower back pain who presents with pancytopenia and acute hypoxic respiratory failure He notes that he had chemotherapy a week ago, and since then has been fatigued. He does not move around much, has had a cough since 4 days (although family notes it may have been longer), and has pleuritic chest pain. His baseline oxygen requirement is around 2 L with COPD but it acutely increased to 5 L this morning and he went to [facility]. As per intake, they collected blood cultures, started him on vancomycin and cefepime and transferred here. Was supposed to see Oncology for chemo tomorrow No fevers at home. Last bowel movement was a few days ago and was slightly tarry, but he was on pepto bismol at that time. He has had minimal urine output, only peed this morning. Appetite is preserved however. Complains about back pain, that he has chronically, but is worsened, he feels that is because of being moved around so much today. Additional history was provided by family I reviewed prior records including his note prior to transfer, most recent ED note, most recent discharge summary, most recent primary physician note, and most recent oncology account specialist note which documented the above Past Medical History Past Medical History[1] Surgical History Surgical History[2] Family History Family History[3] Social History Social History[4] Home Medications Current Outpatient Medications Medication Instructions albuterol 108 (90 Base) MCG/ACT inhaler if needed. buprenorphine-naloxone (Suboxone) 8-2 MG SL tablet 1 tablet, Daily cyclobenzaprine (Flexeril) 10 MG tablet TAKE ONE TABLET BY MOUTH 2 TIMES A DAY NEEDED FOR MUSCLESPASMS dexamethasone (DECADRON) 8 mg, Oral, Daily, Take for 3 days starting the day after chemo. docusate sodium (COLACE) 100 mg, Daily gabapentin (NEURONTIN) 600 mg, 2 times daily gabapentin (NEURONTIN) 800 mg, 2 times daily guaiFENesin (MUCINEX PO) 2 times daily PRN ibuprofen 400 mg, Every 6 hours PRN magnesium citrate 1.745 GM/30ML oral solution drink 296 ML BY MOUTH ONCE NEEDED FOR constipation nicotine polacrilex (Nicorette) 2 MG gum OLANZapine (ZYPREXA) 2.5 mg, Oral, Nightly ondansetron (ZOFRAN) 8 mg, Oral, 2 times daily, Take for two days, starting the day after chemotherapy and then take PRN oxygen (O2) 2 L/min, Continuous prochlorperazine (COMPAZINE) 10 mg, Oral, Every 6 hours PRN prochlorperazine (COMPAZINE) 10 mg, Oral, Every 6 hours PRN senna-docusate sodium (Senokot-S) 8.6-50 MG tablet 1 tablet, Oral, 2 times daily PRN Stiolto Respimat 2.5-2.5 MCG/ACT aerosol solution inhaler 1 (one) time each day. tamsulosin (Flomax) 0.4 MG 24 hr capsule Daily Vraylar 1.5 mg, Daily Objective Blood pressure 108/75, pulse 106, temperature 36.8 ??C (98.3 ??F), temperature source Oral, resp. rate 14, height 1.753 m (5' 9.02 ), weight 60.4 kg (133 lb 2.5 oz), SpO2 96%. Physical Exam Constitutional: Appearance: He is ill-appearing and toxic-appearing. HENT: Mouth/Throat: Mouth: Mucous membranes are dry. Cardiovascular: Rate and Rhythm: Normal rate and regular rhythm. Pulses: Normal pulses. Heart sounds: Normal heart sounds. No murmur heard. Pulmonary: Breath sounds: Wheezing present. Comments: Decreased breath sounds bilaterally Abdominal: General: Abdomen is flat. There is no distension. Palpations: Abdomen is soft. Musculoskeletal: General: Normal range of motion. Right lower leg: No edema. Left lower leg: No edema. Skin: General: Skin is warm and dry. Capillary Refill: Capillary refill takes less than 2 seconds. Comments: Erythematous lesion seen on anterior chest, site of prior FNA Neurological: General: No focal deficit present. Mental Status: He is alert and oriented to person, place, and time. Mental status is at baseline. Data Labs personally reviewed CBC WBC ?? Hb 6.4 (LL) Plt ?? Hct 20.4 (L) ANC ?? INR 1.1, PTT ??, Anti-Xa ?? BMP Na 134 (L) Cl 99 BUN 15 Glu 282 (H) K 3.6 Co2 19 (L) Cr 0.59 (L) Ca 9.0 iCa ?? Mg ??, Phos ?? Lactate ?? LFT AST 23 AlkPhos 189 (H) T Prot 6.7 ALK 39 Bili 0.5 Alb ?? D.Bili ?? Imaging XR personally reviewed, showing bilateral lower lobe airspace disease Assessment/Plan Assessment/ Plan Active Problems: There are no active Hospital Problems. Bryson Teixeira is a 59 y.o. male with PMH of NSCLC, COPD on 2 L, chronic lower back pain who presents with pancytopenia and acute hypoxic respiratory failure This condition poses an acute threat to life/bodily function. Acute hypoxic respiratory failure, possibly 2/2 pneumonia iso immuncompromise - Transfer from [facility], with dypsnea, on 5 L (baseline 2 L) and cough x a week, no fevers - Last chemotherapy 03/02- since then has been weak PLAN - CTPE to rule out PE in the setting of cancer and increased oxygen requirement - Blood and urine cultures, lactate, 1 L LR bolus, start on vanc, cefepime and azithromycin, de escalate as feasible - MRSA, viral panel, streptococcus and legionella panel - Telemetry and continuous pulse oximetry - Pain control : oxycodone 5 mg q4h PRN, dilaudid 0.5mg q3h PRN - Follow cultures from [facility] NSCLC - Diagnosed 03/08, 01/07 with progression, on carboplatin/pacliaxel/ pembrolizumab (last received 03/02) PLAN - CTPE as above - Oncology consult in AM Pancytopenia - Presented with Hb of 6.4, improved to 8.2 after 1 pRBC (last transfusion a week ago, baseline Hb seems to be around 7) - Absolute neutrophil count 1000, likely secondary to chemotherapy, platelet 101, slightly lower than baseline PLAN - Neutropenic precautions - Transfuse for Hb <7, platelet <10 Dysphagia - Previously noted to have dysphagia, barium swallow with hiatal hernia, was planned to have endoscopy to rule out esophageal lesions or stricture - No current complaints of cough while eating 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 Urinary retention - Notes that he has had minimal output, last was this AM - Has history of BPH on tamsulosin PLAN - Bladder scan, can anchor valladares if retaining, start tamsulosin Constipation - Last bowel movement was 4 days ago, notes that it was tarry (but was on peptobismol) PLAN - Will add bowel regimen senna and miralax, suppository, will add enema if needed - Will monitor H and H Chronic conditions COPD - DuoNebs q6h GERD - Protonix Chronic back pain - started gabapentin 800 mg tid, flexeril PRN Insomnia - Added melatonin Care today included: HIGHRISK: High risk: Drug therapy requiring intensive monitoring for toxicity: vancomycin Electronically Signed by: OLIVIA Brambila - 03/08/2025 - 7:32 PM [1] Past Medical History: Diagnosis Date COPD [...] Hypertension Other Stroke Other [4] Social History Tobacco Use Smoking status: Former Current packs/day: 0.00 Average packs/day: 2.0 packs/day for 45.4 years (90.8 ttl pk-yrs) Types: Cigarettes Start date: 1978 Quit date: 02/14/2024 Years since quittin.0 Passive exposure: Past Smokeless tobacco: Never Vaping Use Vaping status: Never Used Substance Use Topics Alcohol use: Not Currently Drug use: Not Currently Cosigned by Margarito Hansen DO at 03/08/2025 10:19 PM EDT Associated attestation - Margarito Hansen DO - 03/08/2025 10:19 PM EDT I saw and evaluated the patient with the resident/fellow. I discussed the case with the resident/fellow and agree with the findings and plan as documented. * ED Provider Notes - Mikaela Harper MD - 03/08/2025 4:56 PM EDT Images from the original note were not included. Chief Complaint: No chief complaint on file. HPI: Bryson Teixeira Jr. is a 59 y.o. male with a past medical history of metastatic squamous cell carcinoma of the lung currently on chemo with last session on Friday who presents as a transfer from outside hospital with concern for pneumonia and pancytopenia. History is provided by patient. No limitations. States that he has been feeling more short of breath since his last chemo session on Friday. Denies fever. Denies any abdominal pain or urinary symptoms. Presented to outside hospital wherepatient was noted to be pancytopenic and with a bilateral pneumonia. Stoddard cultured and administered v anc/cefepime prior to transfer. Past Medical History: Past medical history was reviewed. Past Medical History[1] Surgical History: Surgical history was reviewed. Surgical History[2] Social History: Social History was reviewed. Social History[3] Family History: Family History was reviewed. Family History[4] Allergies: Allergies reviewed. Allergies[5] ED Triage Vitals: ED Triage Vitals [03/08/25 1704] Temp Heart Rate Resp BP 36.8 ??C (98.3 ??F) 106 14 108/75 SpO2 Temp Source Heart Rate Source Patient Position 96 % Oral Monitor Lying BP Location FiO2 (%) Right arm -- Physical Exam: Physical Exam Vitals and nursing note reviewed. Constitutional: General: He is not in acute distress. Appearance: He is ill-appearing. He is not toxic-appearing. Eyes: Extraocular Movements: Extraocular movements intact. Conjunctiva/sclera: Conjunctivae normal. Pupils: Pupils are equal, round, and reactive to light. Cardiovascular: Rate and Rhythm: Normal rate and regular rhythm. Pulses: Normal pulses. Heart sounds: No murmur heard. No friction rub. No gallop. Pulmonary: Effort: Respiratory distress present. Breath sounds: Rales (Bilateral lung antunez) present. Abdominal: General: There is no distension. Palpations: Abdomen is soft. Tenderness: There is no abdominal tenderness. There is no guarding or rebound. Skin: Capillary Refill: Capillary refill takes less than 2 seconds. Neurological: General: No focal deficit present. Mental Status: He is alert and oriented to person, place, and time. Mental status is at baseline. MDM: Patient is a 59 y.o. male presenting as a transfer from outside hospital with bilateral pneumonia and pancytopenia. Based on history, exam and review of available medical records: It should be noted that chronic conditions includes metastatic squamous cell carcinoma of the lung currently on chemotherapy, which currently is not at goal therapy. This complicates his clinical picture because it Comorbidities: may be exacerbating symptoms and increases the risk for morbidity Differential diagnosis includes but is not limited to neutropenic fever, pneumonia, pancytopenia. Records from outside hospital were personally reviewed by me, significant for emergency department visit as noted above. All Other Orders Ordered Status Ordering Provider 03/08/252040 CBC Morning draw Final result YONAS BRIGHT 03/08/252040 Comprehensive metabolic panel Morning draw Final result YONAS BRIGHT 03/08/252040 Vital Signs Every 4 hours Placed in And Linked Group Acknowledged YONAS BRIGHT 03/08/252040 Pulse Oximetry Every 4 hours Placed in And Linked Group Acknowledged YONAS BRIGHT 03/08/252040 Intake and output Every 4 hours Acknowledged KAKARALA, YONAS L 03/08/252040 Every 4 hours Order ID Start Status Ordering Provider [id number] 03/08/252041 Canceled KAKARALA, YONAS L [id number] 03/09/25 0000 Canceled KAKARALA, YONAS L Canceled KAKARALA, YONAS L 03/08/252040 CT Angio Pulmonary Embolism Once Acknowledged KAKARALA, YONAS L 03/08/252040 POCT glucose manually resulted Once Acknowledged KAKARALA, YONAS L 03/08/252040 Continuous Pulse Oximetry Until discontinued Acknowledged KAKARALA, YONAS L 03/08/252040 Once Canceled KAKARALA, YONAS L 03/08/252040 Once Canceled KAKARALA, YONAS L 03/08/252040 Blood Culture (Aerobic/Anaerobet Set) Once Placed in And Linked Group Acknowledged KAMANNIEALA, YONAS L 03/08/252040 Blood Culture (Aerobic/Anaerobet Set) Once Comments: From a different site than #1. Placed in And Linked Group In process CORTNEYMANNIEALA, YONAS L 03/08/252040 Once Canceled KAKARALA, YONAS L 03/08/252040 Mobility Orders Until discontinued Acknowledged KAKARALA, YONAS L 03/08/252040 Notify physician (specify parameters) Until discontinued Acknowledged CORTNEYMANNIEALA, YONAS L 03/08/252040 Insert peripheral IV Once Placed in And Linked Group Acknowledged CORTNEYMANNIEALA, YONAS L 03/08/252040 Saline lock IV Once Placed in And Linked Group Acknowledged CORTNEYMANNIEALA, YONAS L 03/08/252040 Full code Continuous Acknowledged KAMANNIEALA, YONAS L 03/08/252040 Diet effective now Canceled KAKARALA, YONAS L 03/08/252040 Do Not Give Nicotine Replacement Until discontinued Acknowledged KAKARALA, YONAS L 03/08/252040 Nasopharyngeal Respiratory Panel Once Acknowledged KAKARALA, YONAS L 03/08/252040 Methicillin Resistant Staphylococcus aureus (MRSA) by PCR Once Acknowledged KAKARALA, YONAS L 03/08/252040 Streptococcus pneumoniae and Legionella Urinary Antigen Once In process KAMANNIEALA, YONAS L 03/08/252040 Once Canceled KAKARALA, YONAS L 03/08/252040 Urinalysis with reflex microscopic AND reflex culture (IF UTI SUSPECTED) Once In process YONAS BRIGHT 03/08/252040 Urinalysis with reflex microscopic (Culture NOT Included) PROCEDURE ONCE Final result YONAS BRIGHT 03/08/252040 Urine Uribe Panel PROCEDURE ONCE In process YONAS BRIGHT 03/08/252036 Initiate neutropenic isolation Continuous Comments: Added via Instant Order OPA Acknowledged BPA, INSTANT ORDERS 03/08/251954 Manual Differential Once Final result MIKAELA HARPER 03/08/251954 Morphology Once Final result MIKAELA HARPER 03/08/251922 Consult to [facility] - Mario Once Specialty: Internal Medicine Provider: (Not yet assigned) Completed MIKAELA HARPER 03/08/251922 ED to floor bed request Once Completed MIKAELA HARPER 03/08/251922 Prepare Leukocyte Reduced RBC: 2 Units Blood - Once Placed in And Linked Group Preliminary result MIKAELA HARPER 03/08/25 192 Transfuse RBC Transfusion Placed in And Linked Group Final result MIKAELA HARPER 03/08/25 1724 EKG now - STAT (adult) Once Final result MIKAELA HARPER 03/08/25 1713 Hepatitis C Antibody - ED Once Final result MIKAELA HARPER 03/08/25 171 ED Protocol - HIV 1/2 Antibody/Antigen Screen Once Final result MIKAELA AHRPER 03/08/25 1713 ED HIV 1/2 Antibody/Antigen Screen w/Reflex to HIV 1/2 Differentiation PROCEDURE ONCE Final result MIKAELA HARPER 03/08/25 1713 CBC w/diff STAT Final result MIKAELA HARPER 03/08/25 1713 CMP STAT Final result MIKAELA HARPER 03/08/25 1713 PT-INR STAT Final result MIKAELA HARPER 03/08/25 1713 Type and screen Start now Final result MIKAELA HARPER 03/08/25 1713 XR Chest 1 View One time imaging Final result MIKAELA HARPER ED Course as of 03/08/252216Mar 08, 2025 171 On arrival, patient normotensive, tachycardic to 106, afebrile, satting 96% on 5 L nasal cannula with a baseline requirement of 2 L [AC] 180 XR Chest 1 View Independently interpreted by me, revealing a bilateral patchy opacities concerning for pneumonia [AC] 180 Hemoglobin(!!): 6.4 Anemic, will consent for blood transfusion [AC] 1807 CMP(!) Nonactionable [AC] 1923 Consulted Hospital Medicine for admission [AC] 2014 Neutrophils Absolute(!): 1.00 Neutropenic [AC] ED Course User Index [AC] Mikaela Harper MD Clinical Impressions as of 03/08/252216 Pneumonia of both lungs due to infectious organism, unspecified part of lung Pancytopenia Social Determinates of Health Risks (including Economic Stability, Education and level of understanding, Healthcare access and quality and concerning social factors): None identified on this visit Ultimately, this patient was Was admitted (Admission) The primary encounter diagnosis was Pneumonia of both lungs due to infectious organism,unspecified part of lung. A diagnosis of Pancytopenia was also pertinent to this visit.. Patient believed to require admission for the listed diagnoses. The Internal Medicine service was consulted for admission and was agreeable to admit to Acute Floor (Med/Surg). New Prescriptions No medications on file You have no referrals or appointment requests from this visit. Disposition Admit Admitting/Attending Physician: MARGARITO HANSEN [[id number]] Provider Care Team: TANESHA GAYTAN 11 [[id number]] Are they the primary team?: Yes [1] Sign Off Checklist Clinical Impression: Complete ED Disposition: Complete [1] Past Medical History: Diagnosis Date COPD (chronic obstructive pulmonary disease) ([facility]) Dental disease full dentures Hip pain Hip pain, acute, right Leg pain Lower back pain Shortness of breath Wears dentures [2] Past Surgical History: Procedure Laterality Date BACK SURGERY N/A [3] Tobacco Use Smoking status: Former Current packs/day: 0.00 Average packs/day: 2.0 packs/day for 45.4 years (90.8 ttl pk-yrs) Types: Cigarettes Start date: 1978 Quit date: 02/14/2024 Years since quittin.0 Passive exposure: Past Smokeless tobacco: Never Vaping Use Vaping status: Never Used Substance Use Topics Alcohol use: Not Currently Drug use: Not Currently [4] Family History Problem Relation Name Age of Onset Heart Problem Mother Colon cancer Brother Liver cancer Brother Cancer Other Heart Problem Other Hypertension Other Stroke Other [5] No Known Allergies Mikaela Harper MD Resident 03/08/252216 Cosigned by Kayleigh Caretr MD at 03/13/2025 5:29 PM EDT Associated attestation - Kayleigh Carter MD - 03/13/2025 5:29 PM EDT I saw and evaluated the patient with the resident/fellow. I discussed the case with the resident/fellow and agree with the findings and plan as documented. * ED Triage Notes - Samreen Mullins RN - 03/08/2025 4:56 PM EDT Arrived from [facility] via EMS, c./o dyspnea , WBC=1, HGB=6 @ OSH. Received last Chemo Friday 03/02. documented in this encounter Plan of Treatment Upcoming Encounters Date Type Department Care Team ([facility] st Contact Info) Description 03/23/2025 10:30 AM EDT Clinical Support [facility] [address] [place] [address] 03/23/2025 11:00 AM EDT Office Visit [facility] [address] [place] [address] Maninder Zhang MD [address] [place] [address] 03/23/2025 12:00 PM EDT Appointment [facility] [address] [place] [address] Scheduled Referrals Name Type Priority Associated Diagnoses Order Schedule Discharge Ambulatory referral to NON [facility] Outpatient Referral Routine Pneumonia of both lungs due to infectious organism, unspecified part of lung Acute on chronic respiratory failure with hypoxia 1 Occurrences starting 03/12/2025 until 09/13/2026 Discharge Ambulatory referral to [facility] Outpatient Referral Routine Pneumonia of both lungs due to infectious organism, unspecified part of lung 1 Occurrences starting 03/15/2025 until 09/16/2026 Discharge Ambulatory referral to [facility] Physical Therapy Outpatient Referral Routine Generalized weakness Expected: 03/16/2025 (Approximate), Expires: 09/17/2026 Discharge Ambulatory referral to [facility] Occupational Therapy Outpatient Referral Routine Generalized weakness Expected: 03/16/2025 (Approximate), Expires: 09/17/2026 Ambulatory referral to External PCP Outpatient Referral Routine Pneumonia of both lungs due to infectious organism, unspecified part of lung Squamous cell carcinoma of left lung 1 Occurrences starting 03/16/2025 until 09/17/2026 documented as of this encounter Procedures Procedure Name Priority Date/Time Associated Diagnosis Comments CBC WITH AUTO DIFFERENTIAL Routine 03/16/2025 2:23 AM EDT PHOSPHORUS, PLASMA Routine 03/16/2025 2: 23 AM EDT MAGNESIUM, PLASMA Routine 03/16/2025 2:2 3 AM EDT COMPREHENSIVE METABOLIC PANEL, PLASMA Routine 03/16/2025 2:23 AM EDT CBC WITH AUTO DIFFERENTIAL STAT 03/15/2025 1:32 PM EDT MAGNESIUM, PLASMA STAT 03/15/2025 1:3 2 PM EDT OXYGEN THERAPY Routine 03/15/2025 8:00 AM EDT OXYGEN THERAPY Routine 03/14/2025 8:00 PM EDT XR CHEST 1 VIEW Routine 03/14/2025 8:30 AM EDT OXYGEN THERAPY Routine 03/14/2025 8:00 AM EDT CBC W/O DIFFERENTIAL Routine 03/14/2025 3:04 AM EDT TYPE AND SCREEN Routine 03/14/2025 3:04 AM EDT PHOSPHORUS, PLASMA Routine 03/14/2025 3: 04 AM EDT MAGNESIUM, PLASMA Routine 03/14/2025 3:0 4 AM EDT BASIC METABOLIC PANEL, PLASMA Routine 03/14/2025 3:04 AM EDT OXYGEN THERAPY Routine 03/13/2025 8:00 PM EDT MICROBIOLOGY FREQUENCY OVERRIDE Routine 03/13/2025 12:57 PM EDT SARS COV-2/COVID-19 BY PCR LAB ORDER ONLY Routine 03/13/2025 12:45 PM EDT SARS COV-2/COVID-19 BY PCR Routine 03/13/2025 12:45 PM EDT NASOPHARYNGEAL RESPIRATORY PANEL Routine 03/13/2025 12:45 PM EDT INFLUENZA A,B AND RESPIRATORY SYNCYTIAL VIRUS (RSV) BY PCR Add-On 03/13/2025 12:45 PM EDT OXYGEN THERAPY Routine 03/13/2025 8:00 AM EDT BLOOD CULTURE (AEROBIC/ANAEROBIC SET) Pending Discharge 03/12/2025 11:44 PM EDT CBC W/O DIFFERENTIAL Pending Discharge 03/12/2025 11:44 PM EDT COMPREHENSIVE METABOLIC PANEL, PLASMA Pending Discharge 03/12/2025 11:44 PM EDT OXYGEN THERAPY Routine 03/12/2025 8:00 PM EDT CORTISOL Pending Discharge 03/12/2025 5:14 PM EDT US ABDOMEN DOPPLER LIMITED Routine 03/12/2025 3:51 PM EDT US ABDOMEN FOCUSED REGION Routine 03/12/2025 3:51 PM EDT OXYGEN THERAPY Routine 03/12/2025 8:00 AM EDT CBC WITH AUTO DIFFERENTIAL Routine 03/12/2025 3:32 AM EDT COMPREHENSIVE METABOLIC PANEL, PLASMA Routine 03/12/2025 3:32 AM EDT OXYGEN THERAPY Routine 03/11/2025 8:00 PM EDT LACTATE, VENOUS Routine 03/11/2025 5:06 PM EDT OXYGEN THERAPY Routine 03/11/2025 8:00 AM EDT EXTRA TUBE LIGHT GREEN TOP Routine 03/11/2025 3:32 AM EDT EXTRA TUBES Routine 03/11/2025 3:32 AM EDT CBC WITH AUTO DIFFERENTIAL Routine 03/11/2025 3:32 AM EDT OXYGEN THERAPY Routine 03/10/2025 8:00 PM EDT FL MODIFIED BARIUM SWALLOW Routine 03/10/2025 10:50 AM EDT OXYGEN THERAPY Routine 03/10/2025 8:00 AM EDT MORPHOLOGY Routine 03/10/2025 3:39 AM EDT EXTRA TUBE LIGHT GREEN TOP Routine 03/10/2025 3:39 AM EDT LACTATE, VENOUS Routine 03/10/2025 3:39 AM EDT EXTRA TUBES Routine 03/10/2025 3:39 AM EDT MANUAL DIFFERENTIAL Routine 03/10/2025 3 :39 AM EDT CBC WITH AUTO DIFFERENTIAL Routine 03/10/2025 3:39 AM EDT WOUND OSTOMY EVAL AND TREAT Routine 03/10/2025 2:59 AM EDT OXYGEN THERAPY Routine 03/09/2025 8:00 PM EDT INSERT PERIPHERAL IV Routine 03/09/2025 9:07 AM EDT BLOOD CULTURE (AEROBIC/ANAEROBIC SET) Routine 03/09/2025 8:55 AM EDT LACTATE, VENOUS Routine 03/09/2025 8:54 AM EDT OXYGEN THERAPY Routine 03/09/2025 8:00 AM EDT TRANSFUSE RED BLOOD CELLS Routine 03/09/2025 7:47 AM EDT PREPARE RBC Routine 03/09/2025 6:51 AM EDT MORPHOLOGY Routine 03/09/2025 5:29 AM EDT MANUAL DIFFERENTIAL Routine 03/09/2025 5 :29 AM EDT CBC WITH AUTO DIFFERENTIAL Routine 03/09/2025 5:29 AM EDT NASOPHARYNGEAL RESPIRATORY PANEL Routine 03/09/2025 5:11 AM EDT METHICILLIN RESISTANT STAPHYLOCOCCUS AUREUS (MRSA) BY PCR Routine 03/09/2025 5:[address] ANGIO PULMONARY EMBOLISM STAT 03/08/2025 11:28 PM EDT BLOOD CULTURE (AEROBIC/ANAEROBIC SET) Routine 03/08/2025 9:44 PM EDT STREPTOCOCCUS PNEUMONIAE AND LEGIONELLA URINARY ANTIGEN Routine 03/08/2025 9:35 PM EDT URINALYSIS WITH REFLEX MICROSCOPIC AND CULTURE Routine 03/08/2025 9:35 PM EDT URINE URIBE PANEL Routine 03/08/2025 9:35 PM EDT URINALYSIS MICROSCOPIC FOR UA REFLEX Routine 03/08/2025 9:35 PM EDT URINALYSIS WITH REFLEX MICROSCOPIC Routine 03/08/2025 9:35 PM EDT LACTATE, VENOUS Routine 03/08/2025 9:19 PM EDT CBC W/O DIFFERENTIAL Routine 03/08/2025 9:19 PM EDT COMPREHENSIVE METABOLIC PANEL, PLASMA Routine 03/08/2025 9:19 PM EDT OXYGEN THERAPY Routine 03/08/2025 8:51 PM EDT OXYGEN THERAPY Routine 03/08/2025 8:51 PM EDT TRANSFUSE RED BLOOD CELLS STAT 03/08/2025 8:00 PM EDT PREPARE RBC STAT 03/08/2025 7:23 PM EDT XR CHEST 1 VIEW STAT 03/08/2025 5:47 PM EDT ECG ADULT STAT 03/08/2025 5:31 PM EDT ED HIV 1/2 ANTIBODY/ANTIGEN SCREEN WITH REFLEX TO HIV I/II DIFFERENTIATION STAT 03/08/2025 5:26 PM EDT ED PROTOCOL HIV 1/2 ANTIBODY/ANTIGEN SCREEN W/REFLEX TO HIV 1/2 ANTIBODY DIFFERENTIATION STAT 03/08/2025 5:26 PM EDT MORPHOLOGY STAT 03/08/2025 5:26 PM EDT MANUAL DIFFERENTIAL STAT 03/08/2025 5 :26 PM EDT HEPATITIS C ANTIBODY - ED W/REFLEX TO HCV QUANT PCR STAT 03/08/2025 5:26 PM EDT PROTHROMBIN TIME(PT) / INR STAT 03/08/2025 5:26 PM EDT CBC WITH AUTO DIFFERENTIAL STAT 03/08/2025 5:26 PM EDT TYPE AND SCREEN STAT 03/08/2025 5:26 PM EDT COMPREHENSIVE METABOLIC PANEL, PLASMA STAT 03/08/2025 5:26 PM EDT documented in this encounter Results * Phosphorus (03/16/2025 2:23 AM EDT) Phosphorus, Plasma 3.5 2.5 - 4.5 mg/dL 03/16/2025 3:09 AM EDT [facility] Blood Venous blood specimen / Unknown Venipuncture / Unknown 03/16/2025 2:23 AM EDT 03/16/2025 2:38 AM EDT Kathryn Moore MD LAB BLOOD ORDERABLES Final Resu lt [facility] [address] [place] [address] * Magnesium (03/16/2025 2:23 AM EDT) Pathologist [facility] Magnesium, Plasma 1.9 1.9 - 2.4 mg/dL 03/16/2025 3:09 AM EDT [facility] Blood Venous blood specimen / Unknown Venipuncture / Unknown 03/16/2025 2:23 AM EDT 03/16/2025 2:38 AM EDT Kathryn Moore MD LAB BLOOD ORDERABLES Final Resu lt [facility] [address] [place] [address] * (ABNORMAL) Comprehensive Metabolic Panel, Plasma (03/16/2025 2:23 AM EDT) Glucose, Plasma 132(H) 74 - 99 mg/dL 03/16/2025 3:09 AM EDT [facility] BUN, Plasma 7(L) 8 - 23 mg/dL 03/16/2025 3:09 AM EDT [facility] Creatinine, Plasma 0.80 0.70 - 1.20 mg/dL 03/16/2025 3:09 AM EDT [facility] BUN/Creatinine Ratio 9 03/16/2025 3:09 AM EDT [facility] Sodium, Plasma 138 136 - 145 mmol/L 03/16/2025 3:09 AM EDT [facility] Potassium, Plasma 3.7 3.6 - 4.9 mmol/L 03/16/2025 3:09 AM EDT [facility] Chloride, Plasma 101 97 - 107 mmol/L 03/16/2025 3:09 AM EDT [facility] CO2, Plasma 26 22 - 29 mmol/L 03/16/2025 3:09 AM EDT [facility] Anion Gap 11 6 - 16 mmol/L 03/16/2025 3:09 AM EDT [facility] Total Calcium, Plasma 9.0 8.9 - 10.2 mg/dL 03/16/2025 3:09 AM EDT [facility] Total Protein 5.8(L) 6.3 - 7.9 g/dL 03/16/2025 3:09 AM EDT [facility] Albumin, Plasma 2.9(L) 3.5 - 5.2 g/dL 03/16/2025 3:09 AM EDT [facility] AST, Plasma 26 10 - 50 U/L 03/16/2025 3:09 AM EDT [facility] ALT, Plasma 56(H) 10 - 50 U/L 03/16/2025 3:09 AM EDT [facility] Alkaline Phosphatase, Plasma 237(H) 40 - 115 U/L 03/16/2025 3:09 AM EDT [facility] Total Bilirubin, Plasma 0.2 0.2 - 1.1 mg/dL 03/16/2025 3:09 AM EDT [facility] eGFRcr 100.7 mL/min/1.7 3m*2 03/16/2025 3:09 AM EDT [facility] Comment:Reported eGFRcr in m L/min/1.73m2 is based the CKD-EPI 2020 equation that does not use a race coefficient. Blood Venous blood specimen / Unknown Venipuncture / Unknown 03/16/2025 2:23 AM EDT 03/16/2025 2:38 AM EDT us Pooja Flowers MD LAB BLOOD ORDERABLES Final Res ult [facility] [address] [place] [address] * (ABNORMAL) CBC and Differential (03/16/2025 2:23 AM EDT) [facility] Signature WBC Count 10.50(H) 3.70 - 10.30 10*3/uL LAB HEMATOLOGY METHOD 03/16/2025 3:36 AM EDT [facility] RBC Count 2.50(L) 4.60 - 6.10 10*6/uL LAB HEMATOLOGY METHOD 03/16/2025 3:36 AM EDT [facility] HGB 7.5(L) 13.7 - 17.5 g/dL LAB HEMATOLOGY METHOD 03/16/2025 3:36 AM EDT [facility] HCT 24.4(L) 40.0 - 51.0 % LAB HEMATOLOGY METHOD 03/16/2025 3:36 AM EDT [facility] Platelet Count 63(L) 155 - 369 10*3/uL LAB HEMATOLOGY METHOD 03/16/2025 3:36 AM EDT [facility] MCV 98 79 - 98 fL LAB HEMATOLOGY METHOD 03/16/2025 3:36 AM EDT [facility] MCH 30.0 26.0 - 32.0 pg LAB HEMATOLOGY METHOD 03/16/2025 3:36 AM EDT [facility] MCHC 30.7 30.7 - 35.5 g/dL LAB HEMATOLOGY METHOD 03/16/2025 3:36 AM EDT [facility] RDW 15.9(H) 11.5 - 14.5 % LAB HEMATOLOGY METHOD 03/16/2025 3:36 AM EDT [facility] MPV 11.0 8.8 - 12.5 fL LAB HEMATOLOGY METHOD 03/16/2025 3:36 AM EDT [facility] nRBC 0.0 <=0.0 per 100 WBCs LAB HEMATOLOGY METHOD 03/16/2025 3:36 AM EDT [facility] Differential Type Automated LAB HEMATOLOGY METHOD 03/16/2025 3:36 AM EDT [facility] Neutrophils % 86 % LAB HEMATOLOGY METHOD 03/16/2025 3:36 AM EDT [facility] Lymphocytes % 6 % LAB HEMATOLOGY METHOD 03/16/2025 3:36 AM EDT [facility] Monocytes % 6 % LAB HEMATOLOGY METHOD 03/16/2025 3:36 AM EDT [facility] Eosinophils % 0 % LAB HEMATOLOGY METHOD 03/16/2025 3:36 AM EDT [facility] Basophils % 0 % LAB HEMATOLOGY METHOD 03/16/2025 3:36 AM EDT [facility] Immature Granulocytes % 2 % LAB HEMATOLOGY METHOD 03/16/2025 3:36 AM EDT [facility] Neutrophils Absolute 9.03(H) 1.60 - 6.10 10*3/uL LAB HEMATOLOGY METHOD 03/16/2025 3:36 AM EDT [facility] Lymphocytes Absolute 0.60(L) 1.20 - 3.90 10*3/uL LAB HEMATOLOGY METHOD 03/16/2025 3:36 AM EDT [facility] Monocytes Absolute 0.64 0.30 - 0.90 10*3/uL LAB HEMATOLOGY METHOD 03/16/2025 3:36 AM EDT [facility] Eosinophils Absolute 0.02 0.00 - 0.50 10*3/uL LAB HEMATOLOGY METHOD 03/16/2025 3:36 AM EDT [facility] Basophils Absolute 0.02 0.00 - 0.10 10*3/uL LAB HEMATOLOGY METHOD 03/16/2025 3:36 AM EDT [facility] Immature Granulocytes Absolute 0.19(H) 0.00 - 0.06 10*3/uL LAB HEMATOLOGY METHOD 03/16/2025 3:36 AM EDT [facility] Blood Venous blood specimen / Unknown Venipuncture / Unknown 03/16/2025 2:23 AM EDT 03/16/2025 2:40 AM EDT Narrative [facility] - 03/16/2025 3:36 AM EDT Therapeutic decision making should be based on absolute values, rather than percentages. us Pooja Flowers MD LAB BLOOD ORDERABLES Final Res ult [facility] [address] [place] [address] * Magnesium, Plasma (03/15/2025 1:32 PM EDT) Magnesium, Plasma 2.0 1.9 - 2.4 mg/dL 03/15/2025 2:22 PM EDT [facility] Blood Venous blood specimen / Unknown Venipuncture / Unknown 03/15/2025 1:32 PM EDT 03/15/2025 1:58 PM EDT us Pooja Flowers MD LAB BLOOD ORDERABLES Final Res ult [facility] [address] [place] [address] * (ABNORMAL) CBC and differential (03/15/2025 1:32 PM EDT) WBC Count 10.41(H) 3.70 - 10.30 10*3/uL LAB HEMATOLOGY METHOD 03/15/2025 4:46 PM EDT [facility] RBC Count 2.45(L) 4.60 - 6.10 10*6/uL LAB HEMATOLOGY METHOD 03/15/2025 4:46 PM EDT [facility] HGB 7.4(L) 13.7 - 17.5 g/dL LAB HEMATOLOGY METHOD 03/15/2025 4:46 PM EDT [facility] HCT 23.4(L) 40.0 - 51.0 % LAB HEMATOLOGY METHOD 03/15/2025 4:46 PM EDT [facility] Platelet Count 61(L) 155 - 369 10*3/uL LAB HEMATOLOGY METHOD 03/15/2025 4:46 PM EDT [facility] MCV 96 79 - 98 fL LAB HEMATOLOGY METHOD 03/15/2025 4:46 PM EDT [facility] MCH 30.2 26.0 - 32.0 pg LAB HEMATOLOGY METHOD 03/15/2025 4:46 PM EDT [facility] MCHC 31.6 30.7 - 35.5 g/dL LAB HEMATOLOGY METHOD 03/15/2025 4:46 PM EDT [facility] RDW 15.8(H) 11.5 - 14.5 % LAB HEMATOLOGY METHOD 03/15/2025 4:46 PM EDT [facility] MPV 11.4 8.8 - 12.5 fL LAB HEMATOLOGY METHOD 03/15/2025 4:46 PM EDT [facility] nRBC 0.0 <=0.0 per 100 WBCs LAB HEMATOLOGY METHOD 03/15/2025 4:46 PM EDT [facility] Differential Type Automated LAB HEMATOLOGY METHOD 03/15/2025 4:46 PM EDT [facility] Neutrophils % 87 % LAB HEMATOLOGY METHOD 03/15/2025 4:46 PM EDT [facility] Lymphocytes % 4 % LAB HEMATOLOGY METHOD 03/15/2025 4:46 PM EDT [facility] Monocytes % 6 % LAB HEMATOLOGY METHOD 03/15/2025 4:46 PM EDT [facility] Eosinophils % 0 % LAB HEMATOLOGY METHOD 03/15/2025 4:46 PM EDT [facility] Basophils % 0 % LAB HEMATOLOGY METHOD 03/15/2025 4:46 PM EDT [facility] Immature Granulocytes % 3 % LAB HEMATOLOGY METHOD 03/15/2025 4:46 PM EDT [facility] Neutrophils Absolute 9.04(H) 1.60 - 6.10 10*3/uL LAB HEMATOLOGY METHOD 03/15/2025 4:46 PM EDT [facility] Lymphocytes Absolute 0.40(L) 1.20 - 3.90 10*3/uL LAB HEMATOLOGY METHOD 03/15/2025 4:46 PM EDT [facility] Monocytes Absolute 0.67 0.30 - 0.90 10*3/uL LAB HEMATOLOGY METHOD 03/15/2025 4:46 PM EDT [facility] Eosinophils Absolute 0.01 0.00 - 0.50 10*3/uL LAB HEMATOLOGY METHOD 03/15/2025 4:46 PM EDT [facility] Basophils Absolute 0.02 0.00 - 0.10 10*3/uL LAB HEMATOLOGY METHOD 03/15/2025 4:46 PM EDT [facility] Immature Granulocytes Absolute 0.27(H) 0.00 - 0.06 10*3/uL LAB HEMATOLOGY METHOD 03/15/2025 4:46 PM EDT [facility] Blood Venous blood specimen / Unknown Venipuncture / Unknown 03/15/2025 1:32 PM EDT 03/15/2025 2:02 PM EDT [facility] - 03/15/2025 4:46 PM EDT Therapeutic decision making should be based on absolute values, rather than percentages. us Pooja Flowers MD LAB BLOOD ORDERABLES Final Res ult [facility] [address] [place] [address] * XR Chest 1 View (03/14/2025 8:30 AM EDT) Anatomical Region Laterality Modality Chest Digital Radiogra phy Impressions 03/14/2025 9:41 AM EDT Interval decrease in bilateral lower lobe lung airspace opacities. CRITICAL RESULT: No. COMMUNICATION: Per this written report. By electronically signing this report, I, the attending physician, attest that I have personally reviewed the images/data for the above examination(s) and agree with the final edited report. Drafted by Cleve Ludwig MD on 03/14/2025 9:10 AM Final report signed by Adria Jefferson MD on 03/14/2025 9:41 AM Narrative 03/14/2025 9:41 AM EDT CLINICAL INDICATION: hypoxia, being treated for pneumonia TECHNIQUE: XR CHEST 1 VIEW COMPARISON: Chest radiograph 03/08/2025, chest CT 03/08/2025 FINDINGS: Unchanged cardiac silhouette and mediastinal contours. Decreased bilateral lower lung opacities. No new consolidation. Persistent right greater than left bibasilar atelectasis. No pneumothorax. No pleural effusion. Procedure Note Adria Jefferson MD - 03/14/2025 CLINICAL INDICATION: hypoxia, being treated for pneumonia TECHNIQUE: XR CHEST 1 VIEW COMPARISON: Chest radiograph 03/08/2025, chest CT 03/08/2025 FINDINGS: Unchanged cardiac silhouette and mediastinal contours. Decreased bilaterallower lung opacities. No new consolidation. Persistent right greater thanleft bibasilar atelectasis. No pneumothorax. No pleural effusion. IMPRESSION: Interval decrease in bilateral lower lobe lung airspace opacities. CRITICAL RESULT: No. COMMUNICATION: Per this written report. By electronically signing this report, I, the attending physician, attestthat I have personally reviewed the images/data for the aboveexamination(s) and agree with the final edited report. Drafted by Cleve Ludwig MD on 03/14/2025 9:10 AM Final report signed by Adria Jefferson MD on 03/14/2025 9:41 AM Kusum Barrera DO IMG XR PROCEDURES Final Result * Type and Screen (03/14/2025 3:04 AM EDT) ABO/Rh A Positive 03/14/2025 4:00 AM EDT BLOOD BANK Antibody Screen Negative 03/14/2025 4:00 AM EDT BLOOD BANK Specimen Expiration 03/17/2025 23:59 03/14/2025 4:00 AM EDT BLO[facility] Blood Venous blood specimen / Unknown Venipuncture / Unknown 03/14/2025 3:04 AM EDT 03/14/2025 3:08 AM EDT Fab Calero MD LAB BLOOD BANK TEST ORDERAB LES Final Result BLOOD BANK [address] [place] [address], * Phosphorus (03/14/2025 3:04 AM EDT) Phosphorus, Plasma 3.2 2.5 - 4.5 mg/dL 03/14/2025 3:39 AM EDT [facility] Blood Venous blood specimen / Unknown Venipuncture / Unknown 03/14/2025 3:04 AM EDT 03/14/2025 3:08 AM EDT Kusum Barrera DO LAB BLOOD ORDERABLES Final Res ult [facility] [address] [place] [address] * (ABNORMAL) Magnesium (03/14/2025 3:04 AM EDT) Magnesium, Plasma 1.7(L) 1.9 - 2.4 mg/dL 03/14/2025 3:39 AM EDT [facility] Blood Venous blood specimen / Unknown Venipuncture / Unknown 03/14/2025 3:04 AM EDT 03/14/2025 3:08 AM EDT us Kusum Barrera DO LAB BLOOD ORDERABLES Final Res ult [facility] [address] [place] [address] * (ABNORMAL) Basic Metabolic Panel, Plasma (03/14/2025 3:04 AM EDT) Glucose, Plasma 150(H) 74 - 99 mg/dL 03/14/2025 3:39 AM EDT [facility] BUN, Plasma 10 8 - 23 mg/dL 03/14/2025 3:39 AM EDT [facility] Creatinine, Plasma 0.82 0.70 - 1.20 mg/dL 03/14/2025 3:39 AM EDT [facility] BUN/Creatinine Ratio 12 03/14/2025 3:39 AM EDT [facility] Sodium, Plasma 135(L) 136 - 145 mmol/L 03/14/2025 3:39 AM EDT [facility] Potassium, Plasma 4.1 3.6 - 4.9 mmol/L 03/14/2025 3:39 AM EDT [facility] Chloride, Plasma 97 97 - 107 mmol/L 03/14/2025 3:39 AM EDT [facility] CO2, Plasma 27 22 - 29 mmol/L 03/14/2025 3:39 AM EDT [facility] Anion Gap 11 6 - 16 mmol/L 03/14/2025 3:39 AM EDT [facility] Total Calcium, Plasma 8.7(L) 8.9 - 10.2 mg/dL 03/14/2025 3:39 AM EDT [facility] eGFRcr 99.9 mL/min/1.7 3m*2 03/14/2025 3:39 AM EDT [facility] Comment:Reported eGFRcr in m L/min/1.73m2 is based the CKD-EPI 2020 equation that does not use a race coefficient. Blood Venous blood specimen / Unknown Venipuncture / Unknown 03/14/2025 3:04 AM EDT 03/14/2025 3:08 AM EDT us Kusum Barrera DO LAB BLOOD ORDERABLES Final Res ult [facility] [address] [place] [address] * (ABNORMAL) CBC W/O Differential (03/14/2025 3:04 AM EDT) WBC Count 7.05 3.70 - 10.30 10*3/uL LAB HEMATOLOGY METHOD 03/14/2025 3:15 AM EDT [facility] RBC Count 2.47(L) 4.60 - 6.10 10*6/uL LAB HEMATOLOGY METHOD 03/14/2025 3:15 AM EDT [facility] HGB 7.4(L) 13.7 - 17.5 g/dL LAB HEMATOLOGY METHOD 03/14/2025 3:15 AM EDT [facility] HCT 23.4(L) 40.0 - 51.0 % LAB HEMATOLOGY METHOD 03/14/2025 3:15 AM EDT [facility] Platelet Count 54(L) 155 - 369 10*3/uL LAB HEMATOLOGY METHOD 03/14/2025 3:15 AM EDT [facility] MCV 95 79 - 98 fL LAB HEMATOLOGY METHOD 03/14/2025 3:15 AM EDT [facility] MCH 30.0 26.0 - 32.0 pg LAB HEMATOLOGY METHOD 03/14/2025 3:15 AM EDT [facility] MCHC 31.6 30.7 - 35.5 g/dL LAB HEMATOLOGY METHOD 03/14/2025 3:15 AM EDT [facility] RDW 15.8(H) 11.5 - 14.5 % LAB HEMATOLOGY METHOD 03/14/2025 3:15 AM EDT [facility] MPV 11.3 8.8 - 12.5 fL LAB HEMATOLOGY METHOD 03/14/2025 3:15 AM EDT [facility] nRBC 0.0 <=0.0 per 100 WBCs LAB HEMATOLOGY METHOD 03/14/2025 3:15 AM EDT [facility] Blood Venous blood specimen / Unknown Venipuncture / Unknown 03/14/2025 3:04 AM EDT 03/14/2025 3:08 AM EDT us Kusum Barrera DO LAB BLOOD ORDERABLES Final Res ult Performing Organization Address [facility]/ZIP Co de Phone Number [facility] [address] [place] [address] * Microbiology Frequency Override (03/13/2025 12:57 PM EDT) [facility] Microbiology Frequency Override Test Comment respiratory viral panel 03/14/2025 5:[address] [facility] Swab Nasopharyngeal structure / Unknown Non-blood Collection / Unknown 03/13/2025 12:57 PM EDT 03/13/2025 1:10 PM EDT Result [facility] us Kusum Barrera DO LAB MICROBIOLOGY - GENERAL ORD ERABLES Final Result Performing Organization Address [facility] [place] [address] * Influenza A,B & Respiratory Syncytial Virus by PCR (03/13/2025 12:45 PM EDT) [facility] Influenza A Virus PCR Result Not Detected Not Detected 03/14/2025 10:[address] [facility] Influenza B Virus PCR Result Not Detected Not Detected 03/14/2025 10:[address] [facility] Respiratory Syncytial Virus (RSV) PCR Result Not Detected Not Detected 03/14/2025 10:[address] [facility] Swab Nasopharyngeal structure / Unknown Non-blood Collection / Unknown 03/13/2025 12:45 PM EDT 03/13/2025 1:10 PM EDT us Kusum Barrera DO LAB MICROBIOLOGY - GENERAL ORD ERABLES Final Result Performing Organization Address [facility] Co de Phone Number [facility] [address] [place] [address] * SARS CoV-2/COVID-19 by PCR (03/13/2025 12:45 PM EDT) [facility] SARS CoV-2/COVID-1 9 RNA PCR Result Not Detected Not Detected 03/13/2025 2:[address] [facility] Swab Nasopharyngeal structure / Unknown Non-blood Collection / Unknown 03/13/2025 12:45 PM EDT 03/13/2025 1:[address] [facility] - 03/13/2025 2:00 PM EDT This test is FDA approved for use with nasopharyngeal specimens in Viral Transport Media (VTM). This test is used for clinical purposes. It should not be regarded as investigational or for research. This laboratory is certified under the Clinical Laboratory improvement Amendments of 1988 (CLIA-88 as qualified to perform high complexity clinical laboratory testing. This test was performed on the Xpert Xpress SARS CoV-2 Plus assay test, a PCR- based method. Negative results should be considered presumptive and do not preclude current or future infection obtained through community transmission or other exposures. Negative results must be considered in the context of an individual's recent exposures, history, presence of clinical signs and symptoms consistent with COVID-19. Kusum Barrera DO LAB MICROBIOLOGY - GENERAL ORD ERABLES Final Result [facility] [address] [place] [address] * Nasopharyngeal Respiratory Panel (03/13/2025 12:45 PM EDT) [facility] Nasopharyngeal Respiratory PCR Interpretation Not Detected for all analytes Not Detected for all analytes 03/13/2025 3:[address] [facility] Swab Nasopharyngeal structure / Unknown Non-blood Collection / Unknown 03/13/2025 12:45 PM EDT 03/13/2025 1:10 PM EDT Narrative [facility] - 03/13/2025 3:05 PM EDT This assay can detect Adenovirus, Coronavirus, Human Metapneumovirus, Human Rhino/Enterovirus, Influenza A, Influenza A H1, Influenza A H1 2009, Influenza A H3, Influenza B, Parainfluenza Virus 1, Parainfluenza Virus 2, Parainfluenza Virus 3, Parainfluenza Virus 4, Respiratory Syncytial Virus A, Respiratory Syncytial Virus B, Chlamydia pneumoniae, and Mycoplasma pneumoniae. Note: This assay does NOT detect SARS/CoV, novel Coronavirus 2019-nCoV, Bordetella pertussis or Bordetella parapertussis. Nasopharyngeal Respiratory PCR Panel is performed using the Hands-[employer] Mobile ePlex instrument. This test is FDA approved for use with Nasopharyngeal swabs only. This test is used for clinical purposes. It should not be regarded as investigational or for research. The [facility] Clinical Microbiology Laboratory is certified under the Clinical Laboratory Improvement Amendments of 1988 (CLIA-88) as qualified to perform high complexity clinical laboratory testing. Kusum Barrera DO LAB MICROBIOLOGY - GENERAL ORD ERABLES Final Result Performing Organization Address City/[facility]/ZIP Co de Phone Number [facility] [address] [place] [address] * Blood Culture (Aerobic/Anaerobet Set) (03/12/2025 11:44 PM EDT) Culture No growth at day 5 DAVID 03/18/2025 3:01 AM EDT [facility] Blood Structure of right hand / Unknown Venipuncture / Unknown 03/12/2025 11:44 PM EDT 03/13/2025 1:58 AM EDT Spring Stewart MD LAB MICROBIOLOGY - GENERAL ORDER HUMERA Final Result Performing Organization Address City/[facility]/ZIP Co de Phone Number [facility] [address] [place] [address] * (ABNORMAL) Comprehensive Metabolic Panel, Plasma (03/12/2025 11:44 PM EDT) Glucose, Plasma 150(H) 74 - 99 mg/dL 03/13/2025 12:17 AM EDT [facility] BUN, Plasma 10 8 - 23 mg/dL 03/13/2025 12:17 AM EDT [facility] Creatinine, Plasma 0.99 0.70 - 1.20 mg/dL 03/13/2025 12:17 AM EDT [facility] BUN/Creatinine Ratio 10 03/13/2025 12:17 AM EDT [facility] Sodium, Plasma 133(L) 136 - 145 mmol/L 03/13/2025 12:17 AM EDT [facility] Potassium, Plasma 4.0 3.6 - 4.9 mmol/L 03/13/2025 12:17 AM EDT [facility] Chloride, Plasma 99 97 - 107 mmol/L 03/13/2025 12:17 AM EDT [facility] CO2, Plasma 24 22 - 29 mmol/L 03/13/2025 12:17 AM EDT [facility] Anion Gap 10 6 - 16 mmol/L 03/13/2025 12:17 AM EDT [facility] Total Calcium, Plasma 8.4(L) 8.9 - 10.2 mg/dL 03/13/2025 12:17 AM EDT [facility] Total Protein 5.6(L) 6.3 - 7.9 g/dL 03/13/2025 12:17 AM EDT [facility] Albumin, Plasma 2.5(L) 3.5 - 5.2 g/dL 03/13/2025 12:17 AM EDT [facility] AST, Plasma 24 10 - 50 U/L 03/13/2025 12:17 AM EDT [facility] ALT, Plasma 75(H) 10 - 50 U/L 03/13/2025 12:17 AM EDT [facility] Alkaline Phosphatase, Plasma 216(H) 40 - 115 U/L 03/13/2025 12:17 AM EDT [facility] Total Bilirubin, Plasma 0.3 0.2 - 1.1 mg/dL 03/13/2025 12:17 AM EDT [facility] eGFRcr 86.7 mL/min/1.7 3m*2 03/13/2025 12:17 AM EDT [facility] Comment:Reported eGFRcr in m L/min/1.73m2 is based the CKD-EPI 2020 equation that does not use a race coefficient. Blood Venous blood specimen / Unknown Venipuncture / Unknown 03/12/2025 11:44 PM EDT 03/12/2025 11:50 PM EDT us Kusum Barrera DO LAB BLOOD ORDERABLES Final Res ult [facility] [address] [place] [address] * (ABNORMAL) CBC W/O Differential (03/12/2025 11:44 PM EDT) WBC Count 5.44 3.70 - 10.30 10*3/uL LAB HEMATOLOGY METHOD 03/12/2025 11:57 PM EDT [facility] RBC Count 2.39(L) 4.60 - 6.10 10*6/uL LAB HEMATOLOGY METHOD 03/12/2025 11:57 PM EDT [facility] HGB 7.2(L) 13.7 - 17.5 g/dL LAB HEMATOLOGY METHOD 03/12/2025 11:57 PM EDT [facility] HCT 22.8(L) 40.0 - 51.0 % LAB HEMATOLOGY METHOD 03/12/2025 11:57 PM EDT [facility] Platelet Count 58(L) 155 - 369 10*3/uL LAB HEMATOLOGY METHOD 03/12/2025 11:57 PM EDT [facility] MCV 95 79 - 98 fL LAB HEMATOLOGY METHOD 03/12/2025 11:57 PM EDT [facility] MCH 30.1 26.0 - 32.0 pg LAB HEMATOLOGY METHOD 03/12/2025 11:57 PM EDT [facility] MCHC 31.6 30.7 - 35.5 g/dL LAB HEMATOLOGY METHOD 03/12/2025 11:57 PM EDT [facility] RDW 15.6(H) 11.5 - 14.5 % LAB HEMATOLOGY METHOD 03/12/2025 11:57 PM EDT [facility] MPV 11.0 8.8 - 12.5 fL LAB HEMATOLOGY METHOD 03/12/2025 11:57 PM EDT [facility] nRBC 0.0 <=0.0 per 100 WBCs LAB HEMATOLOGY METHOD 03/12/2025 11:57 PM EDT [facility] Blood Venous blood specimen / Unknown Venipuncture / Unknown 03/12/2025 11:44 PM EDT 03/12/2025 11:50 PM EDT us Kusum C Barrera DO LAB BLOOD ORDERABLES Final Res ult Performing Organization Address City/[facility]/ZIP Co de Phone Number [facility] [address] [place] [address] * Cortisol (03/12/2025 5:14 PM EDT) Cortisol 16.50 Before 10am: 3.7 - 19.4. After 5pm: 2.9 - 17.3 ug/dL 03/12/2025 6:35 PM EDT [facility] Comment:Testing performed on [employer] standardized against [employer] Reference Standard concentration values assigned by LC-MS/MS and verified by BCR 192 and BCR 193 certified reference materials. Blood Venous blood specimen / Unknown Venipuncture / Unknown 03/12/2025 5:14 PM EDT 03/12/2025 5:18 PM EDT Kusum Barrera DO LAB REF LAB BLOOD AND FLUID OR D Final Result Performing Organization Address [facility] Co de Phone Number [facility] [address] [place] [address] * US Abdomen Doppler Limited (03/12/2025 3:51 PM EDT) Anatomical Region Laterality Modality Abdomen Ultrasound Impressions 03/12/2025 3:55 PM EDT 1. Patent hepatic vasculature with appropriate flow directionality. CRITICAL RESULT: No. COMMUNICATION: Per this written report. Drafted by Radha Alejandro MD on 03/12/2025 3:54 PM Final report signed by Radha Alejandro MD on 03/12/2025 3:55 PM Narrative 03/12/2025 3:55 PM EDT CLINICAL INDICATION: elevated LFTs TECHNIQUE: Limited multiplanar uribe scale ultrasound images of the right upper quadrant were obtained, accompanied by formal color Doppler and spectral waveform images of the hepatic vasculature. COMPARISON: None. FINDINGS: Grayscale: Findings consistent with liver parenchymal disease Duplex: Portal vein: There is antegrade flow within the main portal vein with a velocity of 43 cm/sec. Hepatic Artery: The main hepatic artery is patent with normal direction of flow. The resistive index is 0.7 . Peak systolic velocity is 125 cm/sec. There is no evidence of obvious stenosis. Hepatic veins: The hepatic veins are patent at the IVC confluence with normal direction of flow. Procedure Note Radha Alejandro MD - 03/12/2025 CLINICAL INDICATION: elevated LFTs TECHNIQUE: Limited multiplanar uribe scale ultrasound images of the right upperquadrant were obtained, accompanied by formal color Doppler and spectralwaveform images of the hepatic vasculature. COMPARISON: None. FINDINGS: Grayscale: Findings consistent with liver parenchymal disease Duplex: Portal vein: There is antegrade flow within the main portal vein with avelocity of 43 cm/sec. Hepatic Artery: The main hepatic artery is patent with normal direction offlow. The resistive index is 0.7 . Peak systolic velocity is 125 cm/sec.There is no evidence of obvious stenosis. Hepatic veins: The hepatic veins are patent at the IVC confluence withnormal direction of flow. IMPRESSION: 1. Patent hepatic vasculature with appropriate flow directionality. CRITICAL RESULT: No. COMMUNICATION: Per this written report. Drafted by Radha Alejandro MD on 03/12/2025 3:54 PM Final report signed by Radha Alejandro MD on 03/12/2025 3:55 PM us Kusum Barrera DO IMG US PROCEDURES Final Result * US Abdomen Focused Region Liver (03/12/2025 3:51 PM EDT) Anatomical Region Laterality Modality Abdomen Ultrasound Impressions 03/12/2025 3:55 PM EDT 1. Patent hepatic vasculature with appropriate flow directionality. CRITICAL RESULT: No. COMMUNICATION: Per this written report. Drafted by Radha Alejandro MD on 03/12/2025 3:54 PM Final report signed by Radha Alejandro MD on 03/12/2025 3:55 PM Narrative 03/12/2025 3:55 PM EDT CLINICAL INDICATION: elevated LFTs TECHNIQUE: Limited multiplanar uribe scale ultrasound images of the right upper quadrant were obtained, accompanied by formal color Doppler and spectral waveform images of the hepatic vasculature. COMPARISON: None. FINDINGS: Grayscale: Findings consistent with liver parenchymal disease Duplex: Portal vein: There is antegrade flow within the main portal vein with a velocity of 43 cm/sec. Hepatic Artery: The main hepatic artery is patent with normal direction of flow. The resistive index is 0.7 . Peak systolic velocity is 125 cm/sec. There is no evidence of obvious stenosis. Hepatic veins: The hepatic veins are patent at the IVC confluence with normal direction of flow. Procedure Note Radha Alejandro MD - 03/12/2025 CLINICAL INDICATION: elevated LFTs TECHNIQUE: Limited multiplanar uribe scale ultrasound images of the right upperquadrant were obtained, accompanied by formal color Doppler and spectralwaveform images of the hepatic vasculature. COMPARISON: None. FINDINGS: Grayscale: Findings consistent with liver parenchymal disease Duplex: Portal vein: There is antegrade flow within the main portal vein with avelocity of 43 cm/sec. Hepatic Artery: The main hepatic artery is patent with normal direction offlow. The resistive index is 0.7 . Peak systolic velocity is 125 cm/sec.There is no evidence of obvious stenosis. Hepatic veins: The hepatic veins are patent at the IVC confluence withnormal direction of flow. IMPRESSION: 1. Patent hepatic vasculature with appropriate flow directionality. CRITICAL RESULT: No. COMMUNICATION: Per this written report. Drafted by Radha Alejandro MD on 03/12/2025 3:54 PM Final report signed by Radha Alejandro MD on 03/12/2025 3:55 PM Kusum Barrera DO [facility] [place] PROCEDURES Final Result * (ABNORMAL) Comprehensive Metabolic Panel, Plasma (03/12/2025 3:32 AM EDT) Glucose, Plasma 131(H) 74 - 99 mg/dL 03/12/2025 4:25 AM EDT [facility] BUN, Plasma 10 8 - 23 mg/dL 03/12/2025 4:25 AM EDT [facility] Creatinine, Plasma 0.69(L) 0.70 - 1.20 mg/dL 03/12/2025 4:25 AM EDT [facility] BUN/Creatinine Ratio 14 03/12/2025 4:25 AM EDT [facility] Sodium, Plasma 135(L) 136 - 145 mmol/L 03/12/2025 4:25 AM EDT [facility] Potassium, Plasma 4.3 3.6 - 4.9 mmol/L 03/12/2025 4:25 AM EDT [facility] Chloride, Plasma 102 97 - 107 mmol/L 03/12/2025 4:25 AM EDT [facility] CO2, Plasma 24 22 - 29 mmol/L 03/12/2025 4:25 AM EDT [facility] Anion Gap 9 6 - 16 mmol/L 03/12/2025 4:25 AM EDT [facility] Total Calcium, Plasma 8.7(L) 8.9 - 10.2 mg/dL 03/12/2025 4:25 AM EDT [facility] Total Protein 5.7(L) 6.3 - 7.9 g/dL 03/12/2025 4:25 AM EDT [facility] Albumin, Plasma 2.7(L) 3.5 - 5.2 g/dL 03/12/2025 4:25 AM EDT [facility] AST, Plasma 58(H) 10 - 50 U/L 03/12/2025 4:25 AM EDT [facility] ALT, Plasma 112(H) 10 - 50 U/L 03/12/2025 4:25 AM EDT [facility] Alkaline Phosphatase, Plasma 237(H) 40 - 115 U/L 03/12/2025 4:25 AM EDT [facility] Total Bilirubin, Plasma 0.3 0.2 - 1.1 mg/dL 03/12/2025 4:25 AM EDT [facility] eGFRcr 105.3 mL/min/1.7 3m*2 03/12/2025 4:25 AM EDT [facility] Comment:Reported eGFRcr in m L/min/1.73m2 is based the CKD-EPI 2020 equation that does not use a race coefficient. Blood Venous blood specimen / Unknown Venipuncture / Unknown 03/12/2025 3:32 AM EDT 03/12/2025 3:41 AM EDT us Kusum Barrera DO LAB BLOOD ORDERABLES Final Res ult [facility] [address] [place] [address] * (ABNORMAL) CBC and Differential (03/12/2025 3:32 AM EDT) WBC Count 2.86(L) 3.70 - 10.30 10*3/uL LAB HEMATOLOGY METHOD 03/12/2025 5:23 AM EDT [facility] RBC Count 2.77(L) 4.60 - 6.10 10*6/uL LAB HEMATOLOGY METHOD 03/12/2025 5:23 AM EDT [facility] HGB 8.4(L) 13.7 - 17.5 g/dL LAB HEMATOLOGY METHOD 03/12/2025 5:23 AM EDT [facility] HCT 26.7(L) 40.0 - 51.0 % LAB HEMATOLOGY METHOD 03/12/2025 5:23 AM EDT [facility] Platelet Count 56(L) 155 - 369 10*3/uL LAB HEMATOLOGY METHOD 03/12/2025 5:23 AM EDT [facility] MCV 96 79 - 98 fL LAB HEMATOLOGY METHOD 03/12/2025 5:23 AM EDT [facility] MCH 30.3 26.0 - 32.0 pg LAB HEMATOLOGY METHOD 03/12/2025 5:23 AM EDT [facility] MCHC 31.5 30.7 - 35.5 g/dL LAB HEMATOLOGY METHOD 03/12/2025 5:23 AM EDT [facility] RDW 15.9(H) 11.5 - 14.5 % LAB HEMATOLOGY METHOD 03/12/2025 5:23 AM EDT [facility] MPV 11.2 8.8 - 12.5 fL LAB HEMATOLOGY METHOD 03/12/2025 5:23 AM EDT [facility] nRBC 0.0 <=0.0 per 100 WBCs LAB HEMATOLOGY METHOD 03/12/2025 5:23 AM EDT [facility] Differential Type Automated LAB HEMATOLOGY METHOD 03/12/2025 5:23 AM EDT [facility] Neutrophils % 71 % LAB HEMATOLOGY METHOD 03/12/2025 5:23 AM EDT [facility] Lymphocytes % 15 % LAB HEMATOLOGY METHOD 03/12/2025 5:23 AM EDT [facility] Monocytes % 12 % LAB HEMATOLOGY METHOD 03/12/2025 5:23 AM EDT [facility] Eosinophils % 0 % LAB HEMATOLOGY METHOD 03/12/2025 5:23 AM EDT [facility] Basophils % 0 % LAB HEMATOLOGY METHOD 03/12/2025 5:23 AM EDT [facility] Immature Granulocytes % 2 % LAB HEMATOLOGY METHOD 03/12/2025 5:23 AM EDT [facility] Neutrophils Absolute 1.99 1.60 - 6.10 10*3/uL LAB HEMATOLOGY METHOD 03/12/2025 5:23 AM EDT [facility] Lymphocytes Absolute 0.44(L) 1.20 - 3.90 10*3/uL LAB HEMATOLOGY METHOD 03/12/2025 5:23 AM EDT [facility] Monocytes Absolute 0.34 0.30 - 0.90 10*3/uL LAB HEMATOLOGY METHOD 03/12/2025 5:23 AM EDT [facility] Eosinophils Absolute 0.01 0.00 - 0.50 10*3/uL LAB HEMATOLOGY METHOD 03/12/2025 5:23 AM EDT [facility] Basophils Absolute 0.01 0.00 - 0.10 10*3/uL LAB HEMATOLOGY METHOD 03/12/2025 5:23 AM EDT [facility] Immature Granulocytes Absolute 0.07(H) 0.00 - 0.06 10*3/uL LAB HEMATOLOGY METHOD 03/12/2025 5:23 AM EDT [facility] Blood Venous blood specimen / Unknown Venipuncture / Unknown 03/12/2025 3:32 AM EDT 03/12/2025 3:44 AM EDT Narrative [facility] - 03/12/2025 5:23 AM EDT Therapeutic decision making should be based on absolute values, rather than percentages. us Kusum Barrera DO LAB BLOOD ORDERABLES Final Res ult [facility] [address] [place] [address] * Lactate, venous (03/11/2025 5:06 PM EDT) Lactate, Venous, Whole Blood 1.3 0.5 - 2.2 mmol/L LAB HEMATOLOGY METHOD 03/11/2025 5:20 PM EDT [facility] Blood Venous blood specimen / Unknown Venipuncture / Unknown 03/11/2025 5:06 PM EDT 03/11/2025 5:17 PM EDT Kusum Barrera DO LAB BLOOD ORDERABLES Final Res ult Performing Organization Address [facility]/ZIP Co de Phone Number [facility] [address] [place] [address] * Light Green Top (03/11/2025 3:32 AM EDT) Extra Hold for add-ons 03/11/2025 6:34 AM EDT [facility] Comment:Auto resulted. Blood Venous blood specimen / Unknown 03/11/2025 3:32 AM EDT 03/11/2025 4:24 AM EDT Kusum Barrera DO LAB BLOOD ORDERABLES Final Res ult Performing Organization Address City/[facility] Co de Phone Number [facility] [address] [place] [address] * (ABNORMAL) CBC and Differential (03/11/2025 3:32 AM EDT) WBC Count 1.17(LL) 3.70 - 10.30 10*3/uL LAB HEMATOLOGY METHOD 03/11/2025 6:17 AM EDT [facility] RBC Count 2.63(L) 4.60 - 6.10 10*6/uL LAB HEMATOLOGY METHOD 03/11/2025 6:17 AM EDT [facility] HGB 8.0(L) 13.7 - 17.5 g/dL LAB HEMATOLOGY METHOD 03/11/2025 6:17 AM EDT [facility] HCT 24.6(L) 40.0 - 51.0 % LAB HEMATOLOGY METHOD 03/11/2025 6:17 AM EDT [facility] Platelet Count 52(L) 155 - 369 10*3/uL LAB HEMATOLOGY METHOD 03/11/2025 6:17 AM EDT [facility] MCV 94 79 - 98 fL LAB HEMATOLOGY METHOD 03/11/2025 6:17 AM EDT [facility] MCH 30.4 26.0 - 32.0 pg LAB HEMATOLOGY METHOD 03/11/2025 6:17 AM EDT [facility] MCHC 32.5 30.7 - 35.5 g/dL LAB HEMATOLOGY METHOD 03/11/2025 6:17 AM EDT [facility] RDW 15.9(H) 11.5 - 14.5 % LAB HEMATOLOGY METHOD 03/11/2025 6:17 AM EDT [facility] MPV 11.4 8.8 - 12.5 fL LAB HEMATOLOGY METHOD 03/11/2025 6:17 AM EDT [facility] nRBC 0.0 <=0.0 per 100 WBCs LAB HEMATOLOGY METHOD 03/11/2025 6:17 AM EDT [facility] Differential Type Automated LAB HEMATOLOGY METHOD 03/11/2025 6:17 AM EDT [facility] Neutrophils % 38 % LAB HEMATOLOGY METHOD 03/11/2025 6:17 AM EDT [facility] Lymphocytes % 33 % LAB HEMATOLOGY METHOD 03/11/2025 6:17 AM EDT [facility] Monocytes % 27 % LAB HEMATOLOGY METHOD 03/11/2025 6:17 AM EDT [facility] Eosinophils % 1 % LAB HEMATOLOGY METHOD 03/11/2025 6:17 AM EDT [facility] Basophils % 0 % LAB HEMATOLOGY METHOD 03/11/2025 6:17 AM EDT [facility] Immature Granulocytes % 1 % LAB HEMATOLOGY METHOD 03/11/2025 6:17 AM EDT [facility] Neutrophils Absolute 0.46(LL) 1.60 - 6.10 10*3/uL LAB HEMATOLOGY METHOD 03/11/2025 6:17 AM EDT [facility] Lymphocytes Absolute 0.38(L) 1.20 - 3.90 10*3/uL LAB HEMATOLOGY METHOD 03/11/2025 6:17 AM EDT [facility] Monocytes Absolute 0.31 0.30 - 0.90 10*3/uL LAB HEMATOLOGY METHOD 03/11/2025 6:17 AM EDT [facility] Eosinophils Absolute 0.01 0.00 - 0.50 10*3/uL LAB HEMATOLOGY METHOD 03/11/2025 6:17 AM EDT [facility] Basophils Absolute 0.00 0.00 - 0.10 10*3/uL LAB HEMATOLOGY METHOD 03/11/2025 6:17 AM EDT [facility] Immature Granulocytes Absolute 0.01 0.00 - 0.06 10*3/uL LAB HEMATOLOGY METHOD 03/11/2025 6:17 AM EDT [facility] Blood Venous blood specimen / Unknown Venipuncture / Unknown 03/11/2025 3:32 AM EDT 03/11/2025 4:30 AM EDT Narrative [facility] - 03/11/2025 6:17 AM EDT Therapeutic decision making should be based on absolute values, rather than percentages. us Kusum Barrera DO LAB BLOOD ORDERABLES Final Res ult [facility] [address] [place] [address] * FL Modified Barium Swallow (03/10/2025 10:50 AM EDT) Anatomical Region Laterality Modality Esophagus, stomach and duodenum Digital Radiography Impressions 03/10/2025 11:57 AM EDT No aspiration of any tested consistency. Please see separate note by Speech therapy team for dietary recommendations. CRITICAL RESULT: No. COMMUNICATION: Per this written report. By electronically signing this report, I, the attending physician, attest that I have personally reviewed the images/data for the above examination(s) and agree with the final edited report. Drafted by KISHA Ritchie RT (R) on 03/10/2025 11:25 AM Final report signed by Efren Saucedo MD on 03/10/2025 11:57 AM Narrative 03/10/2025 11:57 AM EDT CLINICAL INDICATION: Dysphagia TECHNIQUE: Modified barium swallow was performed utilizing video fluoroscopy in conjunction with the Speech Pathology team. The patient ingested barium media of varying consistencies. Fluoroscopy Time: 1.6 minutes. COMPARISON: None. FINDINGS: Swallowing: Thin consistency (IDDSI 0): No aspiration. There is deep laryngeal penetration by the straw. There is no laryngeal penetration by the teaspoon or the cup. Pudding consistency (IDDSI 4): No aspiration or laryngeal penetration. There is vallecular residue. Regular cracker consistency (IDDSI 7): No aspiration or laryngeal penetration. Other: Patient is edentulous. Procedure Note Efren Saucedo MD - 03/10/2025 CLINICAL INDICATION: Dysphagia TECHNIQUE: Modified barium swallow was performed utilizing video fluoroscopy inconjunction with the Speech Pathology team. The patient ingested bariummedia of varying consistencies. Fluoroscopy Time: 1.6 minutes. COMPARISON: None. FINDINGS: Swallowing: Thin consistency (IDDSI 0): No aspiration. There is deep laryngealpenetration by the straw. There is no laryngeal penetration by theteaspoon or the cup. Pudding consistency (IDDSI 4): No aspiration or laryngeal penetration.There is vallecular residue. Regular cracker consistency (IDDSI 7): No aspiration or laryngealpenetration. Other: Patient is edentulous. IMPRESSION: No aspiration of any tested consistency. Please see separate note by Speech therapy team for dietaryrecommendations. CRITICAL RESULT: No. COMMUNICATION: Per this written report. By electronically signing this report, I, the attending physician, attestthat I have personally reviewed the images/data for the aboveexamination(s) and agree with the final edited report. Drafted by KISHA Ritchie RT (R) on 03/10/2025 11:25 AM Final report signed by Efren Saucedo MD on 03/10/2025 11:57 AM Kusum Barrera DO IMG FLUOROSCOPY PROCEDURES Fin al Result * Morphology (03/10/2025 3:39 AM EDT) Elliptocytes/O valocytes Present LAB HEMATOLOGY METHOD 03/10/2025 5:52 AM EDT [facility] RBC Morphology Slide Reviewed LAB HEMATOLOGY METHOD 03/10/2025 5:52 AM EDT [facility] Platelet Estimate Platelet smear estimate consistent with automated count LAB HEMATOLOGY METHOD 03/10/2025 5:52 AM EDT [facility] Blood Venous blood specimen / Unknown Venipuncture / Unknown 03/10/2025 3:39 AM EDT 03/10/2025 3:44 AM EDT us Kusum Anh Barrera DO LAB BLOOD ORDERABLES Final Res ult [facility] [address] [place] [address] * (ABNORMAL) Manual Differential (03/10/2025 3:39 AM EDT) Blasts % 0 % LAB HEMATOLOGY METHOD 03/10/2025 5:52 AM EDT [facility] Promyelocytes % 0 % LAB HEMATOLOGY METHOD 03/10/2025 5:52 AM EDT [facility] Myelocytes % 0 % LAB HEMATOLOGY METHOD 03/10/2025 5:52 AM EDT [facility] Metamyelocytes % 4 % LAB HEMATOLOGY METHOD 03/10/2025 5:52 AM EDT [facility] Neutrophils % 60 % LAB HEMATOLOGY METHOD 03/10/2025 5:52 AM EDT [facility] Lymphocytes % 34 % LAB HEMATOLOGY METHOD 03/10/2025 5:52 AM EDT [facility] Reactive Lymphocytes % 0 % LAB HEMATOLOGY METHOD 03/10/2025 5:52 AM EDT [facility] Monocytes % 0 % LAB HEMATOLOGY METHOD 03/10/2025 5:52 AM EDT [facility] Eosinophils % 2 % LAB HEMATOLOGY METHOD 03/10/2025 5:52 AM EDT [facility] Basophils % 0 % LAB HEMATOLOGY METHOD 03/10/2025 5:52 AM EDT [facility] Blasts Absolute 0.00 10*3/UL LAB HEMATOLOGY METHOD 03/10/2025 5:52 AM EDT [facility] Promyelocytes Absolute 0.00 10*3/uL LAB HEMATOLOGY METHOD 03/10/2025 5:52 AM EDT [facility] Myelocytes Absolute 0.00 10*3/uL LAB HEMATOLOGY METHOD 03/10/2025 5:52 AM EDT [facility] Metamyelocytes Absolute 0.03 10*3/uL LAB HEMATOLOGY METHOD 03/10/2025 5:52 AM EDT [facility] Neutrophils Absolute 0.50(LL) 1.60 - 6.10 10*3/uL LAB HEMATOLOGY METHOD 03/10/2025 5:52 AM EDT [facility] Lymphocytes Absolute 0.29(L) 1.20 - 3.90 10*3/uL LAB HEMATOLOGY METHOD 03/10/2025 5:52 AM EDT [facility] Reactive Lymphocytes Absolute 0.00 10*3/uL LAB HEMATOLOGY METHOD 03/10/2025 5:52 AM EDT [facility] Monocytes Absolute 0.00(L) 0.30 - 0.90 10*3/uL LAB HEMATOLOGY METHOD 03/10/2025 5:52 AM EDT [facility] Eosinophils Absolute 0.02 0.00 - 0.50 10*3/uL LAB HEMATOLOGY METHOD 03/10/2025 5:52 AM EDT [facility] Basophils Absolute 0.00 0.00 - 0.10 10*3/uL LAB HEMATOLOGY METHOD 03/10/2025 5:52 AM EDT [facility] Blood Venous blood specimen / Unknown Venipuncture / Unknown 03/10/2025 3:39 AM EDT 03/10/2025 3:44 AM EDT Kusum Barrera DO LAB BLOOD ORDERABLES Final Res ult [facility] [address] [place] [address] * Light Green Top (03/10/2025 3:39 AM EDT) Extra Hold for add-ons 03/10/2025 6:01 AM EDT [facility] Comment:Auto resulted. Blood Venous blood specimen / Unknown 03/10/2025 3:39 AM EDT 03/10/2025 3:44 AM EDT Kusum Barrera DO LAB BLOOD ORDERABLES Final Res ult [facility] [address] [place] [address] * Lactate, venous (03/10/2025 3:39 AM EDT) Lactate, Venous, Whole Blood 0.7 0.5 - 2.2 mmol/L LAB HEMATOLOGY METHOD 03/10/2025 3:49 AM EDT [facility] Blood Venous blood specimen / Unknown Venipuncture / Unknown 03/10/2025 3:39 AM EDT 03/10/2025 3:47 AM EDT us Kusum Barrera DO LAB BLOOD ORDERABLES Final Res ult [facility] [address] [place] [address] * (ABNORMAL) CBC and Differential (03/10/2025 3:39 AM EDT) WBC Count 0.84(LL) 3.70 - 10.30 10*3/uL LAB HEMATOLOGY METHOD 03/10/2025 5:52 AM EDT [facility] RBC Count 2.51(L) 4.60 - 6.10 10*6/uL LAB HEMATOLOGY METHOD 03/10/2025 5:52 AM EDT [facility] HGB 7.5(L) 13.7 - 17.5 g/dL LAB HEMATOLOGY METHOD 03/10/2025 5:52 AM EDT [facility] HCT 23.4(L) 40.0 - 51.0 % LAB HEMATOLOGY METHOD 03/10/2025 5:52 AM EDT [facility] Platelet Count 69(L) 155 - 369 10*3/uL LAB HEMATOLOGY METHOD 03/10/2025 5:52 AM EDT [facility] MCV 93 79 - 98 fL LAB HEMATOLOGY METHOD 03/10/2025 5:52 AM EDT [facility] MCH 29.9 26.0 - 32.0 pg LAB HEMATOLOGY METHOD 03/10/2025 5:52 AM EDT [facility] MCHC 32.1 30.7 - 35.5 g/dL LAB HEMATOLOGY METHOD 03/10/2025 5:52 AM EDT [facility] RDW 16.1(H) 11.5 - 14.5 % LAB HEMATOLOGY METHOD 03/10/2025 5:52 AM EDT [facility] MPV 11.3 8.8 - 12.5 fL LAB HEMATOLOGY METHOD 03/10/2025 5:52 AM EDT [facility] nRBC 0.0 <=0.0 per 100 WBCs LAB HEMATOLOGY METHOD 03/10/2025 5:52 AM EDT [facility] Differential Type Manual LAB HEMATOLOGY METHOD 03/10/2025 5:52 AM EDT [facility] Blood Venous blood specimen / Unknown Venipuncture / Unknown 03/10/2025 3:39 AM EDT 03/10/2025 3:44 AM EDT Narrative [facility] - 03/10/2025 5:52 AM EDT Therapeutic decision making should be based on absolute values, rather than percentages. The previously reported component Neutrophils % is no longer being reported.The previously reported component Lymphocytes % is no longer being reported.The previously reported component Monocytes % is no longer being reported.The previously reported component Eosinophils % is no longer being reported.The previously reported component Basophils % is no longer being reported.The previously reported component Immature Granulocytes % is no longer being reported.The previously reported component Absolute Neutrophils is no longer being reported.The previously reported component Absolute Lymphocytes is no longer being reported.The previously reported component Absolute Monocytes is no longer being reported.The previously reported component Absolute Eosinophils is no longer being reported.The previously reported component Absolute Basophils is no longer being reported.The previously reported component Absolute Immature Granulocytes is no longer being reported. Kusum Barrera DO LAB BLOOD ORDERABLES Final Res ult Performing Organization Address City/State/[facility] Co de Phone Number [facility] [address] [place] [address] * Transfuse RBC (03/09/2025 11:15 AM EDT) Margarito Hansen DO BLOOD TRANSFUSION ORDERA BLES Final Result * Transfuse RBC: 1 Units (03/09/2025 11:15 AM EDT) [facility] Hansen DO BLOOD TRANSFUSION ORDERA BLES Final Result * PERIPHERAL IV (SMARTFORM LINK) (03/09/2025 9:07 AM EDT) Narrative Kerri Rodriguez RN - 03/09/2025 9:07 AM EDT Kerri Rodriguez RN 03/09/2025 9:08 AM Insert peripheral IV Performed by: Kerri Rodriguez, RN Authorized by: Kusum Barrera DO Hand hygiene: Hand hygiene performed prior to insertion Inserted using aseptic techniques: Yes Preparation: Skin prepped with chg Orientation: Right, upper and medial Location: Arm Catheter placed: Peripheral IV Catheter size: 20g/2.00in Line Technique: Ultrasound Guidance Number of attempts: 1 IV flushes: Without difficulty and positive blood return noted and IV luer locked Patient tolerance: Patient tolerated the procedure well and there were no complications Patient comfort measures used: Distraction and position of comfort IV site covered with: Transparent semipermeable dressing Education provided to: Patient Comments: Labs collected at time of IV insertion. Pertinent imaging sent via PACS. Kusum Barrera DO IV THERAPY ORDERABLES Final Re sult * Blood Culture (Aerobic/Anaerobet Set) (03/09/2025 8:55 AM EDT) [facility] Culture No growth at day 5 DAVID 03/14/2025 10:01 AM EDT [facility] Blood Venous blood specimen / Unknown Venipuncture / Unknown 03/09/2025 8:55 AM EDT 03/09/2025 9:27 AM EDT Margarito Hansen DO LAB MICROBIOLOGY - GENER AL ORDERABLES Final Result Performing Organization Address City/[facility]/[place] [address] * (ABNORMAL) Lactate, venous (03/09/2025 8:54 AM EDT) [facility] Lactate, Venous, Whole Blood 2.6(H) 0.5 - 2.2 mmol/L LAB HEMATOLOGY METHOD 03/09/2025 9:11 AM EDT [facility] Blood Venous blood specimen / Unknown Venipuncture / Unknown 03/09/2025 8:54 AM EDT 03/09/2025 9:09 AM EDT Margarito Hansen DO LAB BLOOD ORDERABLES Fin al Result Performing Organization Address City/[facility]/[place] [address] * Prepare Leukocyte Reduced RBC: 1 Units (03/09/2025 6:51 AM EDT) Product Code [id number] BLOO D BANK Dispense Status Transfused BLOOD BANK Blood Expiration Date [id number] BLOOD BANK Unit Number [id number] CH B LOOD BANK Product Blood Type 6200 BLOOD BANK Blood Type A+ BLOOD BANK Crossmatch Compatible CH BLOOD BANK Other Margarito Hansen DO BLOOD BANK PRODUCT ORDER HUMERA Final Result Performing Organization Address [facility] de Phone Number BLOOD BANK [address] [place] [address], * Morphology (03/09/2025 5:29 AM EDT) Echinocytes Present LAB HEMATOLOGY METHOD 03/09/2025 10:02 AM EDT [facility] Elliptocytes/Ov alocytes Present LAB HEMATOLOGY METHOD 03/09/2025 10:02 AM EDT [facility] RBC Morphology Slide Reviewed LAB HEMATOLOGY METHOD 03/09/2025 10:02 AM EDT [facility] Platelet Estimate Platelet count not valid due to clumping. Appears decreased. LAB HEMATOLOGY METHOD 03/09/2025 10:02 AM EDT [facility] Blood Venous blood specimen / Unknown Venipuncture / Unknown 03/09/2025 5:29 AM EDT 03/09/2025 5:36 AM EDT Margarito Hansen DO LAB BLOOD ORDERABLES Fin al Result Performing Organization Address City/[facility]/ZIP Co de Phone Number [facility] [address] [place] [address] * (ABNORMAL) Manual Differential (03/09/2025 5:29 AM EDT) Blasts % 0 % LAB HEMATOLOGY METHOD 03/09/2025 10:02 AM EDT [facility] Promyelocytes % 0 % LAB HEMATOLOGY METHOD 03/09/2025 10:02 AM EDT [facility] Myelocytes % 0 % LAB HEMATOLOGY METHOD 03/09/2025 10:02 AM EDT [facility] Metamyelocytes % 0 % LAB HEMATOLOGY METHOD 03/09/2025 10:02 AM EDT [facility] Neutrophils % 64 % LAB HEMATOLOGY METHOD 03/09/2025 10:02 AM EDT [facility] Lymphocytes % 23 % LAB HEMATOLOGY METHOD 03/09/2025 10:02 AM EDT [facility] Reactive Lymphocytes % 0 % LAB HEMATOLOGY METHOD 03/09/2025 10:02 AM EDT [facility] Monocytes % 13 % LAB HEMATOLOGY METHOD 03/09/2025 10:02 AM EDT [facility] Eosinophils % 0 % LAB HEMATOLOGY METHOD 03/09/2025 10:02 AM EDT [facility] Basophils % 0 % LAB HEMATOLOGY METHOD 03/09/2025 10:02 AM EDT [facility] Blasts Absolute 0.00 10*3/UL LAB HEMATOLOGY METHOD 03/09/2025 10:02 AM EDT [facility] Promyelocytes Absolute 0.00 10*3/uL LAB HEMATOLOGY METHOD 03/09/2025 10:02 AM EDT [facility] Myelocytes Absolute 0.00 10*3/uL LAB HEMATOLOGY METHOD 03/09/2025 10:02 AM EDT [facility] Metamyelocytes Absolute 0.00 10*3/uL LAB HEMATOLOGY METHOD 03/09/2025 10:02 AM EDT [facility] Neutrophils Absolute 0.60(LL) 1.60 - 6.10 10*3/uL LAB HEMATOLOGY METHOD 03/09/2025 10:02 AM EDT [facility] Lymphocytes Absolute 0.22(L) 1.20 - 3.90 10*3/uL LAB HEMATOLOGY METHOD 03/09/2025 10:02 AM EDT [facility] Reactive Lymphocytes Absolute 0.00 10*3/uL LAB HEMATOLOGY METHOD 03/09/2025 10:02 AM EDT [facility] Monocytes Absolute 0.12(L) 0.30 - 0.90 10*3/uL LAB HEMATOLOGY METHOD 03/09/2025 10:02 AM EDT [facility] Eosinophils Absolute 0.00 0.00 - 0.50 10*3/uL LAB HEMATOLOGY METHOD 03/09/2025 10:02 AM EDT [facility] Basophils Absolute 0.00 0.00 - 0.10 10*3/uL LAB HEMATOLOGY METHOD 03/09/2025 10:02 AM EDT [facility] Blood Venous blood specimen / Unknown Venipuncture / Unknown 03/09/2025 5:29 AM EDT 03/09/2025 5:36 AM EDT Margarito Hansen DO LAB BLOOD ORDERABLES Fin al Result [facility] [address] [place] [address] * (ABNORMAL) CBC and differential (03/09/2025 5:29 AM EDT) WBC Count 0.94(LL) 3.70 - 10.30 10*3/uL LAB HEMATOLOGY METHOD 03/09/2025 10:02 AM EDT [facility] RBC Count 2.05(L) 4.60 - 6.10 10*6/uL LAB HEMATOLOGY METHOD 03/09/2025 10:02 AM EDT [facility] HGB 6.3(LL) 13.7 - 17.5 g/dL LAB HEMATOLOGY METHOD 03/09/2025 10:02 AM EDT [facility] HCT 19.6(L) 40.0 - 51.0 % LAB HEMATOLOGY METHOD 03/09/2025 10:02 AM EDT [facility] Platelet Count LAB HEMATOLOGY METHOD 03/09/2025 10:02 AM EDT [facility] Comment:Platelet count not v alid due to clumping. Appears decreased. MCV 96 79 - 98 fL LAB HEMATOLOGY METHOD 03/09/2025 10:02 AM EDT [facility] MCH 30.7 26.0 - 32.0 pg LAB HEMATOLOGY METHOD 03/09/2025 10:02 AM EDT [facility] MCHC 32.1 30.7 - 35.5 g/dL LAB HEMATOLOGY METHOD 03/09/2025 10:02 AM EDT [facility] RDW 15.9(H) 11.5 - 14.5 % LAB HEMATOLOGY METHOD 03/09/2025 10:02 AM EDT [facility] MPV LAB HEMATOLOGY METHOD 03/09/2025 10:02 AM EDT [facility] Comment:Not Measured nRBC 0.0 <=0.0 per 100 WBCs LAB HEMATOLOGY METHOD 03/09/2025 10:02 AM EDT [facility] Differential Type Manual LAB HEMATOLOGY METHOD 03/09/2025 10:[address] [facility] Blood Venous blood specimen / Unknown Venipuncture / Unknown 03/09/2025 5:29 AM EDT 03/09/2025 5:36 AM EDT Narrative [facility] - 03/09/2025 10:02 AM EDT Therapeutic decision making should be based on absolute values, rather than percentages. The previously reported component Neutrophils % is no longer being reported.The previously reported component Lymphocytes % is no longer being reported.The previously reported component Monocytes % is no longer being reported.The previously reported component Eosinophils % is no longer being reported.The previously reported component Basophils % is no longer being reported.The previously reported component Immature Granulocytes % is no longer being reported.The previously reported component Absolute Neutrophils is no longer being reported.The previously reported component Absolute Lymphocytes is no longer being reported.The previously reported component Absolute Monocytes is no longer being reported.The previously reported component Absolute Eosinophils is no longer being reported.The previously reported component Absolute Basophils is no longer being reported.The previously reported component Absolute Immature Granulocytes is no longer being reported. Margarito Hansen DO LAB BLOOD ORDERABLES Fin al Result [facility] [address] [place] [address] * Methicillin Resistant Staphylococcus aureus (MRSA) by PCR (03/09/2025 5:11 AM EDT) Pathologist [facility] Methicillin Resistant Staphylococcus aureus (MRSA) by PCR Not Detected Not Detected 03/09/2025 7:56 AM EDT [facility] Swab Both anterior nares / Unknown Non-blood Collection / Unknown 03/09/2025 5:11 AM EDT 03/09/2025 6:26 AM EDT Narrative [facility] - 03/09/2025 7:56 AM EDT This test is FDA approved for use with nares swab specimens using the eSwabs. This test is used for clinical purposes. It should not be regarded as investigational or for research. This laboratory is certified under the Clinical Laboratory improvement Amendments of 1988 (CLIA-88 as qualified to perform high complexity clinical laboratory testing. [facility] LAB MICROBIOLOGY - GENER AL ORDERABLES Final Result Performing Organization Address [facility] Co de Phone Number [facility] [address] [place] [address] * Nasopharyngeal Respiratory Panel (03/09/2025 5:11 AM EDT) Nasopharyngeal Respiratory PCR Interpretation Not Detected for all analytes Not Detected for all analytes 03/09/2025 8:[address] [facility] Swab Nasopharyngeal structure / Unknown Non-blood Collection / Unknown 03/09/2025 5:11 AM EDT 03/09/2025 6:26 AM EDT Narrative [facility] - 03/09/2025 8:29 AM EDT This assay can detect Adenovirus, Coronavirus, Human Metapneumovirus, Human Rhino/Enterovirus, Influenza A, Influenza A H1, Influenza A H1 2009, Influenza A H3, Influenza B, Parainfluenza Virus 1, Parainfluenza Virus 2, Parainfluenza Virus 3, Parainfluenza Virus 4, Respiratory Syncytial Virus A, Respiratory Syncytial Virus B, Chlamydia pneumoniae, and Mycoplasma pneumoniae. Note: This assay does NOT detect SARS/CoV, novel Coronavirus 2019-nCoV, Bordetella pertussis or Bordetella parapertussis. Nasopharyngeal Respiratory PCR Panel is performed using the DataSynclex instrument. This test is FDA approved for use with Nasopharyngeal swabs only. This test is used for clinical purposes. It should not be regarded as investigational or for research. The [facility] Clinical Microbiology Laboratory is certified under the Clinical Laboratory Improvement Amendments of 1988 (CLIA-88) as qualified to perform high complexity clinical laboratory testing. [facility] LAB MICROBIOLOGY - GENER AL ORDERABLES Final Result Performing Organization Address [facility] de Phone Number [facility] [address] [place] [address] * CT Angio Pulmonary Embolism (03/08/2025 11:28 PM EDT) Anatomical Region Laterality Modality Chest Computed Tomogra phy Impressions 03/09/2025 12:05 AM EDT No pulmonary embolism. Nodular and Consolidative opacities in the lower lobes concerning for aspiration or infection. Bronchial wall thickening and mucous plugging, worse in the left lower lobe. CRITICAL RESULT: No. COMMUNICATION: Per this written report. Drafted by Radha Alejandro MD on 03/09/2025 12:01 AM Final report signed by Radha Alejandro MD on 03/09/2025 12:05 AM Narrative 03/09/2025 12:05 AM EDT CLINICAL INDICATION: Pulmonary embolism (PE) suspected, low to intermediate prob, neg D-dimer TECHNIQUE: Imaging of the chest was performed from thoracic inlet through upper abdomen, using spiral technique, following administration of IV contrast, Omnipaque 350, 100 mL per the pulmonary angiogram protocol. In addition, 3D images were created and reviewed. TOTAL DLP (Dose-Length Product): 157.86 mGy.cm. Please note: The reported value represents the total of one or more individual components during the CT acquisition on this date and at this time, and as such, the same value may appear in more than one CT report depending on the interpreting/reporting physicians. COMPARISON: None. FINDINGS: Pulmonary Arteries/Vessels: No pulmonary embolism. Right Heart Strain: No evidence of right heart strain. Pleural/Pericardial space: No pneumothorax. No pleural effusions. No pericardial effusion. Lymph Nodes: No lymphadenopathy within the chest. Lungs: Diffuse bilateral emphysema. Consolidative and nodular opacities in the lower lobes. Left apical scarring. Bronchial wall thickening and less plugging, worse in the left lower lobe. Mediastinum: Otherwise unremarkable. Chest wall: No chest wall hematoma or contusion. Bones: No acute fracture within the chest. Upper Abdomen: Left renal cyst. Thickening of the right adrenal nodule Procedure Note Radha Alejandro MD - 03/09/2025 CLINICAL INDICATION: Pulmonary embolism (PE) suspected, low to intermediate prob, neg D-dimer TECHNIQUE: Imaging of the chest was performed from thoracic inlet through upperabdomen, using spiral technique, following administration of IV contrast,Omnipaque 350, 100 mL per the pulmonary angiogram protocol. In addition,3D images were created and reviewed. TOTAL DLP (Dose-Length Product): 157.86 mGy.cm. Please note: The reportedvalue represents the total of one or more individual components during theCT acquisition on this date and at this time, and as such, the same valuemay appear in more than one CT report depending on theinterpreting/reporting physicians. COMPARISON: None. FINDINGS: Pulmonary Arteries/Vessels: No pulmonary embolism. Right Heart Strain: No evidence of right heart strain. Pleural/Pericardial space: No pneumothorax. No pleural effusions. Nopericardial effusion. Lymph Nodes: No lymphadenopathy within the chest. Lungs: Diffuse bilateral emphysema. Consolidative and nodular opacities inthe lower lobes. Left apical scarring. Bronchial wall thickening and lessplugging, worse in the left lower lobe. Mediastinum: Otherwise unremarkable. Chest wall: No chest wall hematoma or contusion. Bones: No acute fracture within the chest. Upper Abdomen: Left renal cyst. Thickening of the right adrenal nodule IMPRESSION: No pulmonary embolism. Nodular and Consolidative opacities in the lower lobes concerning foraspiration or infection. Bronchial wall thickening and mucous plugging,worse in the left lower lobe. CRITICAL RESULT: No. COMMUNICATION: Per this written report. Drafted by Radha Alejandro MD on 03/09/2025 12:01 AM Final report signed by Radha Alejandro MD on 03/09/2025 12:05 AM us Margarito Hansen DO IMG CT PROCEDURES Final Result * Blood Culture (Aerobic/Anaerobet Set) (03/08/2025 9:44 PM EDT) Culture No growth at day 5 03/13/2025 10:17 PM EDT [facility] Blood Venous blood specimen / Unknown Venipuncture / Unknown 03/08/2025 9:44 PM EDT 03/08/2025 10:09 PM EDT Narrative [facility] - 03/13/2025 10:17 PM EDT Low blood volume submitted, results may be compromised Margarito Hansen DO LAB MICROBIOLOGY - GENER AL ORDERABLES Final Result [facility] [address] [place] [address] * Urinalysis Microscopic Examination (03/08/2025 9:35 PM EDT) Urine Urine specimen obtained by clean catch procedure / Unknown Non-blood Collection / Unknown 03/08/2025 9:35 PM EDT 03/08/2025 9:53 PM EDT [facility] LAB URINE ORDERABLES Fin al Result Performing Organization Address City/[facility]/ZIP Co de Phone Number [facility] [address] [place] [address] * Urine Uribe Panel (03/08/2025 9:35 PM EDT) Extra Reflex urine culture not indicated 03/08/2025 11:02 PM EDT [facility] Urine Urine specimen obtained by clean catch procedure / Unknown Non-blood Collection / Unknown 03/08/2025 9:35 PM EDT 03/08/2025 9:53 PM EDT [facility] LAB URINE ORDERABLES Fin al Result Performing Organization Address City/[facility]/ZIP Co de Phone Number [facility] [address] [place] [address] * (ABNORMAL) Urinalysis with reflex microscopic (Culture NOT Included) (03/08/2025 9:35 PM EDT) Color, Urine Yellow LAB URINALYSIS - AUTOMATED METHOD 03/08/2025 10:07 PM EDT [facility] Clarity, Urine Clear LAB URINALYSIS - AUTOMATED METHOD 03/08/2025 10:07 PM EDT [facility] Spec Adolphus, Urine >1.030(H) 1.005 - 1.030 LAB URINALYSIS - AUTOMATED METHOD 03/08/2025 10:07 PM EDT [facility] pH, Urine 6.5 5.0 - 8.0 LAB URINALYSIS - AUTOMATED METHOD 03/08/2025 10:07 PM EDT [facility] Protein, Urine 30(A) Negative mg/dL LAB URINALYSIS - AUTOMATED METHOD 03/08/2025 10:07 PM EDT [facility] Glucose, Urine 250(A) Negative mg/dL LAB URINALYSIS - AUTOMATED METHOD 03/08/2025 10:07 PM EDT [facility] Ketones, Urine Negative Negative mg/dL LAB URINALYSIS - AUTOMATED METHOD 03/08/2025 10:07 PM EDT [facility] Blood, Urine Trace(A) Negative LAB URINALYSIS - AUTOMATED METHOD 03/08/2025 10:07 PM EDT [facility] Bilirubin, Urine Negative Negative LAB URINALYSIS - AUTOMATED METHOD 03/08/2025 10:07 PM EDT [facility] Urobilinogen, Urine 1.0 0.2 to 1.0 mg/dL LAB URINALYSIS - AUTOMATED METHOD 03/08/2025 10:07 PM EDT [facility] Leukocytes, Urine Negative Negative LAB URINALYSIS - AUTOMATED METHOD 03/08/2025 10:07 PM EDT [facility] Nitrite, Urine Negative Negative LAB URINALYSIS - AUTOMATED METHOD 03/08/2025 10:07 PM EDT [facility] RBC, Urine 4 - 10(A) 0 to 3 /HPF LAB URINALYSIS - AUTOMATED METHOD 03/08/2025 10:07 PM EDT [facility] WBC, Urine 0 - 5 0 to 5 /HPF LAB URINALYSIS - AUTOMATED METHOD 03/08/2025 10:07 PM EDT [facility] Squamous Epithelial Cells 0 - 2 0 to 5 /HPF LAB URINALYSIS - AUTOMATED METHOD 03/08/2025 10:07 PM EDT [facility] Hyaline Casts 0 - 2 0 to 5 /LPF LAB URINALYSIS - AUTOMATED METHOD 03/08/2025 10:07 PM EDT [facility] Bacteria, Urine Negative Negative LAB URINALYSIS - AUTOMATED METHOD 03/08/2025 10:07 PM EDT [facility] Urine Urine specimen obtained by clean catch procedure / Unknown Non-blood Collection / Unknown 03/08/2025 9:35 PM EDT 03/08/2025 9:53 PM EDT us Margarito Hansen DO LAB URINE ORDERABLES Fin al Result [facility] [address] [place] [address] * (ABNORMAL) Streptococcus pneumoniae and Legionella Urinary Antigen (03/08/2025 9:35 PM EDT) Legionella pneumophila serogroup 1 Antigen Result (Urine) Negative Negative 03/09/2025 7:28 AM EDT [facility] Streptococcus pneumoniae Antigen Result (Urine) Positive(A) Negative 03/09/2025 7:28 AM EDT [facility] Urine Urine specimen obtained by clean catch procedure / Unknown Non-blood Collection / Unknown 03/08/2025 9:35 PM EDT 03/08/2025 9:55 PM EDT Margarito Hansen DO LAB MICROBIOLOGY - GENER AL ORDERABLES Final Result Performing Organization Address City/[facility]/ZIP Co de Phone Number [facility] [address] [place] [address] * (ABNORMAL) LACTIC ACID, VENOUS (03/08/2025 9:19 PM EDT) Lactate, Venous, Whole Blood 3.2(H) 0.5 - 2.2 mmol/L LAB HEMATOLOGY METHOD 03/08/2025 9:44 PM EDT [facility] Blood Venous blood specimen / Unknown Venipuncture / Unknown 03/08/2025 9:19 PM EDT 03/08/2025 9:43 PM EDT Kayleigh Carter MD LAB BLOOD ORDERABLES Final Resu lt Performing Organization Address City/[facility]/ZIP Co de Phone Number [facility] [address] [place] [address] * (ABNORMAL) Comprehensive metabolic panel (03/08/2025 9:19 PM EDT) Glucose, Plasma 251(H) 74 - 99 mg/dL 03/08/2025 10:03 PM EDT [facility] BUN, Plasma 15 8 - 23 mg/dL 03/08/2025 10:03 PM EDT [facility] Creatinine, Plasma 0.64(L) 0.70 - 1.20 mg/dL 03/08/2025 10:03 PM EDT [facility] BUN/Creatinine Ratio 23 03/08/2025 10:03 PM EDT [facility] Sodium, Plasma 135(L) 136 - 145 mmol/L 03/08/2025 10:03 PM EDT [facility] Potassium, Plasma 4.1 3.6 - 4.9 mmol/L 03/08/2025 10:03 PM EDT [facility] Chloride, Plasma 100 97 - 107 mmol/L 03/08/2025 10:03 PM EDT [facility] CO2, Plasma 19(L) 22 - 29 mmol/L 03/08/2025 10:03 PM EDT [facility] Anion Gap 16 6 - 16 mmol/L 03/08/2025 10:03 PM EDT [facility] Total Calcium, Plasma 9.0 8.9 - 10.2 mg/dL 03/08/2025 10:03 PM EDT [facility] Total Protein 6.8 6.3 - 7.9 g/dL 03/08/2025 10:03 PM EDT [facility] Albumin, Plasma 3.2(L) 3.5 - 5.2 g/dL 03/08/2025 10:03 PM EDT [facility] AST, Plasma 32 10 - 50 U/L 03/08/2025 10:03 PM EDT [facility] ALT, Plasma 52(H) 10 - 50 U/L 03/08/2025 10:03 PM EDT [facility] Alkaline Phosphatase, Plasma 202(H) 40 - 115 U/L 03/08/2025 10:03 PM EDT [facility] Total Bilirubin, Plasma 0.7 0.2 - 1.1 mg/dL 03/08/2025 10:03 PM EDT [facility] eGFRcr 107.7 mL/min/1.7 3m*2 03/08/2025 10:03 PM EDT [facility] Comment:Reported eGFRcr in m L/min/1.73m2 is based the CKD-EPI 2020 equation that does not use a race coefficient. Blood Venous blood specimen / Unknown Venipuncture / Unknown 03/08/2025 9:19 PM EDT 03/08/2025 9:42 PM EDT us Margarito Hansen DO LAB BLOOD ORDERABLES Fin al Result [facility] [address] [place] [address] * (ABNORMAL) CBC (03/08/2025 9:19 PM EDT) WBC Count 1.24(L) 3.70 - 10.30 10*3/uL LAB HEMATOLOGY METHOD 03/08/2025 9:44 PM EDT [facility] RBC Count 2.70(L) 4.60 - 6.10 10*6/uL LAB HEMATOLOGY METHOD 03/08/2025 9:44 PM EDT [facility] HGB 8.2(L) 13.7 - 17.5 g/dL LAB HEMATOLOGY METHOD 03/08/2025 9:44 PM EDT [facility] HCT 26.2(L) 40.0 - 51.0 % LAB HEMATOLOGY METHOD 03/08/2025 9:44 PM EDT [facility] Platelet Count 101(L) 155 - 369 10*3/uL LAB HEMATOLOGY METHOD 03/08/2025 9:44 PM EDT [facility] MCV 97 79 - 98 fL LAB HEMATOLOGY METHOD 03/08/2025 9:44 PM EDT [facility] MCH 30.4 26.0 - 32.0 pg LAB HEMATOLOGY METHOD 03/08/2025 9:44 PM EDT [facility] MCHC 31.3 30.7 - 35.5 g/dL LAB HEMATOLOGY METHOD 03/08/2025 9:44 PM EDT [facility] RDW 15.9(H) 11.5 - 14.5 % LAB HEMATOLOGY METHOD 03/08/2025 9:44 PM EDT [facility] MPV 10.9 8.8 - 12.5 fL LAB HEMATOLOGY METHOD 03/08/2025 9:44 PM EDT [facility] nRBC 0.0 <=0.0 per 100 WBCs LAB HEMATOLOGY METHOD 03/08/2025 9:44 PM EDT [facility] Blood Venous blood specimen / Unknown Venipuncture / Unknown 03/08/2025 9:19 PM EDT 03/08/2025 9:42 PM EDT Margarito Hansen LAB BLOOD ORDERABLES Fin al Result Performing Organization Address [facility] Co de Phone Number [facility] [address] [place] [address] * Transfuse RBC (03/08/2025 9:16 PM EDT) Kayleigh Carter MD BLOOD TRANSFUSION ORDERABLES Fi nal Result * Transfuse RBC: 1 Units (03/08/2025 9:16 PM EDT) Kayleigh Carter MD BLOOD TRANSFUSION ORDERABLES Fi nal Result * Prepare Leukocyte Reduced RBC: 2 Units (03/08/2025 7:23 PM EDT) [facility] Product Code [id number] CH BLOO D BANK Dispense Status Transfused BLOOD BANK Blood Expiration Date [id number] BLOOD BANK Unit Number [id number] CH B LOOD BANK Product Blood Type 6200 BLOOD BANK Blood Type A+ CH BLOOD BANK Crossmatch Compatible BLOOD BANK Product Code [id number] CH BLOO D BANK Dispense Status Released BLOOD BANK Blood Expiration Date [id number] BLOOD BANK Unit Number [id number] CH B LOOD BANK Product Blood Type 6200 BLOOD BANK Blood Type A+ CH BLOOD BANK Crossmatch Compatible BLOOD BANK Other Kayleigh Carter MD BLOOD BANK PRODUCT ORDERABLES F inal Result Performing Organization Address [facility] [place] Co de Phone Number BLOOD BANK [address] [place] [address], * XR Chest 1 View (03/08/2025 5:47 PM EDT) Anatomical Region Laterality Modality Chest Digital Radiogra phy Impressions 03/08/2025 6:00 PM EDT Emphysema with scattered areas of scarring with stable appearing left upper lobe nodule. Prominent left hilum consistent with adenopathy better seen on previous CT scan. Bilateral lower lobe airspace disease which could be due to pneumonia and/or aspiration. CRITICAL RESULT: No. COMMUNICATION: Per this written report. Drafted by Mikhail Garcia MD on 03/08/2025 5:57 PM Final report signed by Mikhail Garcia MD on 03/08/2025 6:00 PM Narrative 03/08/2025 6:00 PM EDT CLINICAL INDICATION: eval PNA TECHNIQUE: XR CHEST 1 VIEW COMPARISON: 01/10/2025 FINDINGS: Unremarkable cardiomediastinal contour. Emphysematous changes with scattered areas of scarring. 11 mm nodule in the left upper lobe probably unchanged. Mild prominence of the left hilum likely corresponding to adenopathy better seen on previous CT scan. Bilateral lower lobe airspace opacity right greater than left may represent infection or aspiration. No large pleural effusion or pneumothorax. No acute osseous findings. Procedure Note Mikhail Garcia MD - 03/08/2025 CLINICAL INDICATION: eval PNA TECHNIQUE: XR CHEST 1 VIEW COMPARISON: 01/10/2025 FINDINGS: Unremarkable cardiomediastinal contour. Emphysematous changes withscattered areas of scarring. 11 mm nodule in the left upper lobe probablyunchanged. Mild prominence of the left hilum likely corresponding toadenopathy better seen on previous CT scan. Bilateral lower lobe airspaceopacity right greater than left may represent infection or aspiration. Nolarge pleural effusion or pneumothorax. No acute osseous findings. IMPRESSION: Emphysema with scattered areas of scarring with stable appearing leftupper lobe nodule. Prominent left hilum consistent with adenopathy betterseen on previous CT scan. Bilateral lower lobe airspace disease which could be due to pneumoniaand/or aspiration. CRITICAL RESULT: No. COMMUNICATION: Per this written report. Drafted by Mikhail Garcia MD on 03/08/2025 5:57 PM Final report signed by Mikhail Garcia MD on 03/08/2025 6:00 PM us Kayleigh Carter MD IMG XR PROCEDURES Final Result * EKG now - STAT (adult) (03/08/2025 5:31 PM EDT) EKG DIAGNOSIS CLASS Borderline Normal MUSE ECG Ventricular Rate 104 BPM MUSE ECG Atrial Rate 104 BPM MUSE ECG MN Interval 144 ms MUSE ECG QRSD Interval 102 ms MUSE ECG QT Interval 354 ms MUSE ECG QTC Interval 465 ms MUSE ECG R [place] 82 degrees MUSE ECG T Wave [place] 66 degrees MUSE ECG Diagnosis Sinus tachycardia MUSE ECG Diagnosis Otherwise normal ECG MUSE ECG Diagnosis MUSE ECG Diagnosis Confirmed by Myles Manley ([id number]) on 03/08/2025 6:58:57 PM MUSE ECG 03/08/2025 5:31 PM EDT 03/08/2025 6:58 PM EDT Kayleigh Carter MD ECG ORDERABLES Final Result Performing Organization Address City/[facility]/ZIP Co de Phone Number MUSE ECG * (ABNORMAL) Morphology (03/08/2025 5:26 PM EDT) RBC Fragments/Schi stocytes Slight(A) (none) LAB HEMATOLOGY METHOD 03/08/2025 7:55 PM EDT [facility] Echinocytes Present LAB HEMATOLOGY METHOD 03/08/2025 7:55 PM EDT [facility] RBC Morphology Slide Reviewed LAB HEMATOLOGY METHOD 03/08/2025 7:55 PM EDT [facility] Platelet Estimate Platelet smear estimate consistent with automated count LAB HEMATOLOGY METHOD 03/08/2025 7:55 PM EDT [facility] Toxic Changes Present LAB HEMATOLOGY METHOD 03/08/2025 7:55 PM EDT [facility] Blood Venous blood specimen / Unknown Venipuncture / Unknown 03/08/2025 5:26 PM EDT 03/08/2025 5:31 PM EDT Kayleigh Carter MD LAB BLOOD ORDERABLES Final Resu lt [facility] [address] [place] [address] * (ABNORMAL) Manual Differential (03/08/2025 5:26 PM EDT) Blasts % 0 % LAB HEMATOLOGY METHOD 03/08/2025 7:55 PM EDT [facility] Promyelocytes % 0 % LAB HEMATOLOGY METHOD 03/08/2025 7:55 PM EDT [facility] Myelocytes % 0 % LAB HEMATOLOGY METHOD 03/08/2025 7:55 PM EDT [facility] Metamyelocytes % 2 % LAB HEMATOLOGY METHOD 03/08/2025 7:55 PM EDT [facility] Neutrophils % 90 % LAB HEMATOLOGY METHOD 03/08/2025 7:55 PM EDT [facility] Lymphocytes % 1 % LAB HEMATOLOGY METHOD 03/08/2025 7:55 PM EDT [facility] Reactive Lymphocytes % 1 % LAB HEMATOLOGY METHOD 03/08/2025 7:55 PM EDT [facility] Monocytes % 4 % LAB HEMATOLOGY METHOD 03/08/2025 7:55 PM EDT [facility] Eosinophils % 0 % LAB HEMATOLOGY METHOD 03/08/2025 7:55 PM EDT [facility] Basophils % 2 % LAB HEMATOLOGY METHOD 03/08/2025 7:55 PM EDT [facility] Blasts Absolute 0.00 10*3/UL LAB HEMATOLOGY METHOD 03/08/2025 7:55 PM EDT [facility] Promyelocytes Absolute 0.00 10*3/uL LAB HEMATOLOGY METHOD 03/08/2025 7:55 PM EDT [facility] Myelocytes Absolute 0.00 10*3/uL LAB HEMATOLOGY METHOD 03/08/2025 7:55 PM EDT [facility] Metamyelocytes Absolute 0.02 10*3/uL LAB HEMATOLOGY METHOD 03/08/2025 7:55 PM EDT [facility] Neutrophils Absolute 1.00(L) 1.60 - 6.10 10*3/uL LAB HEMATOLOGY METHOD 03/08/2025 7:55 PM EDT [facility] Lymphocytes Absolute 0.01(L) 1.20 - 3.90 10*3/uL LAB HEMATOLOGY METHOD 03/08/2025 7:55 PM EDT [facility] Reactive Lymphocytes Absolute 0.01 10*3/uL LAB HEMATOLOGY METHOD 03/08/2025 7:55 PM EDT [facility] Monocytes Absolute 0.04(L) 0.30 - 0.90 10*3/uL LAB HEMATOLOGY METHOD 03/08/2025 7:55 PM EDT [facility] Eosinophils Absolute 0.00 0.00 - 0.50 10*3/uL LAB HEMATOLOGY METHOD 03/08/2025 7:55 PM EDT [facility] Basophils Absolute 0.02 0.00 - 0.10 10*3/uL LAB HEMATOLOGY METHOD 03/08/2025 7:[address] [facility] Blood Venous blood specimen / Unknown Venipuncture / Unknown 03/08/2025 5:26 PM EDT 03/08/2025 5:31 PM EDT Kayleigh Carter MD LAB BLOOD ORDERABLES Final Resu lt Performing Organization Address [facility]/ZIP Co de Phone Number [facility] [address] [place] [address] * ED HIV 1/2 Antibody/Antigen Screen w/Reflex to HIV 1/2 Differentiation (03/08/2025 5:26 PM EDT) HIV 1 & 2 Antibody/Antigen Screen Non Reactive Non Reactive 03/08/2025 6:15 PM EDT [facility] Comment:Screening for HIV 1 & 2 antibodies, and P24 antigen is NONREACTIVE. No confirmatory testing is required. Blood Venous blood specimen / Unknown Venipuncture / Unknown 03/08/2025 5:26 PM EDT 03/08/2025 5:35 PM EDT us Kayleigh Carter MD LAB BLOOD ORDERABLES Final Resu lt Performing Organization Address [facility]/[place]IP [place] [address] * Hepatitis C Antibody - ED (03/08/2025 5:26 PM EDT) Hepatitis C Antibody Negative Negative 03/08/2025 6:[address] [facility] Blood Venous blood specimen / Unknown Venipuncture / Unknown 03/08/2025 5:26 PM EDT 03/08/2025 5:34 PM EDT us Kayleigh Carter MD LAB BLOOD ORDERABLES Final Resu lt Performing Organization Address [facility]/ZIP Co de Phone Number [facility] [address] [place] [address] * Type and screen (03/08/2025 5:26 PM EDT) ABO/Rh A Positive 03/08/2025 5:13 PM EDT BLOOD BANK Antibody Screen Negative 03/08/2025 5:13 PM EDT BLOOD BANK Specimen Expiration 03/11/2025 23:59 03/08/2025 5:13 PM EDT BLOOD BANK Blood Venous blood specimen / Unknown Venipuncture / Unknown 03/08/2025 5:26 PM EDT 03/08/2025 5:36 PM EDT Kayleigh Carter MD LAB BLOOD BANK TEST ORDERABLES Final Result Performing Organization Address [facility]/ZIP Co de Phone Number BLOOD BANK [address] * PT-INR (03/08/2025 5:26 PM EDT) Prothrombin Time 14.3 12.0 - 14.3 sec 03/08/2025 5:47 PM EDT [facility] INR 1.1 0.9 - 1.1 03/08/2025 5:[address] [facility] Blood Venous blood specimen / Unknown Venipuncture / Unknown 03/08/2025 5:26 PM EDT 03/08/2025 5:30 PM EDT Narrative [facility] - 03/08/2025 5:47 PM EDT OPTIMAL INR RANGES FOR PATIENT ON ORAL ANTICOAGULANT THERAPY Prevention of venous thromboembolism INR 2.0 to 3.0 In patients with heart disease: Atrial fibrillation INR 2.0 to 3.0 Valvular heart disease INR 2.0 to 3.0 Tissue heart valves INR 2.0 to 3.0 Mechanical prosthetic valves INR 2.5 to 3.5 Prevention of recurrent NC INR 2.5 to 3.5 Kayleigh Carter MD LAB BLOOD ORDERABLES Final Resu lt [facility] [address] [place] [address] * (ABNORMAL) CMP (03/08/2025 5:26 PM EDT) Glucose, Plasma 282(H) 74 - 99 mg/dL 03/08/2025 6:03 PM EDT [facility] BUN, Plasma 15 8 - 23 mg/dL 03/08/2025 6:03 PM EDT [facility] Creatinine, Plasma 0.59(L) 0.70 - 1.20 mg/dL 03/08/2025 6:03 PM EDT [facility] BUN/Creatinine Ratio 25 03/08/2025 6:03 PM EDT [facility] Sodium, Plasma 134(L) 136 - 145 mmol/L 03/08/2025 6:03 PM EDT [facility] Potassium, Plasma 3.6 3.6 - 4.9 mmol/L 03/08/2025 6:03 PM EDT [facility] Chloride, Plasma 99 97 - 107 mmol/L 03/08/2025 6:03 PM EDT [facility] CO2, Plasma 19(L) 22 - 29 mmol/L 03/08/2025 6:03 PM EDT [facility] Anion Gap 16 6 - 16 mmol/L 03/08/2025 6:03 PM EDT [facility] Total Calcium, Plasma 9.0 8.9 - 10.2 mg/dL 03/08/2025 6:03 PM EDT [facility] Total Protein 6.7 6.3 - 7.9 g/dL 03/08/2025 6:03 PM EDT [facility] Albumin, Plasma 3.1(L) 3.5 - 5.2 g/dL 03/08/2025 6:03 PM EDT [facility] AST, Plasma 23 10 - 50 U/L 03/08/2025 6:03 PM EDT [facility] Comment:Hemolyzed, result ma y be falsely increased. ALT, Plasma 39 10 - 50 U/L 03/08/2025 6:03 PM EDT [facility] Alkaline Phosphatase, Plasma 189(H) 40 - 115 U/L 03/08/2025 6:03 PM EDT [facility] Total Bilirubin, Plasma 0.5 0.2 - 1.1 mg/dL 03/08/2025 6:03 PM EDT [facility] eGFRcr 110.4 mL/min/1.7 3m*2 03/08/2025 6:03 PM EDT [facility] Comment:Reported eGFRcr in m L/min/1.73m2 is based the CKD-EPI 2020 equation that does not use a race coefficient. Blood Venous blood specimen / Unknown Venipuncture / Unknown 03/08/2025 5:26 PM EDT 03/08/2025 5:34 PM EDT us Kayleigh Carter MD LAB BLOOD ORDERABLES Final Resu lt [facility] [address] [place] [address] * (ABNORMAL) CBC w/diff (03/08/2025 5:26 PM EDT) WBC Count 1.11(LL) 3.70 - 10.30 10*3/uL LAB HEMATOLOGY METHOD 03/08/2025 7:55 PM EDT [facility] RBC Count 2.12(L) 4.60 - 6.10 10*6/uL LAB HEMATOLOGY METHOD 03/08/2025 7:55 PM EDT [facility] HGB 6.4(LL) 13.7 - 17.5 g/dL LAB HEMATOLOGY METHOD 03/08/2025 7:55 PM EDT [facility] HCT 20.4(L) 40.0 - 51.0 % LAB HEMATOLOGY METHOD 03/08/2025 7:55 PM EDT [facility] Platelet Count 96(L) 155 - 369 10*3/uL LAB HEMATOLOGY METHOD 03/08/2025 7:55 PM EDT [facility] MCV 96 79 - 98 fL LAB HEMATOLOGY METHOD 03/08/2025 7:55 PM EDT [facility] Comment:Results inconsistent with previous lab findings. MCH 30.2 26.0 - 32.0 pg LAB HEMATOLOGY METHOD 03/08/2025 7:55 PM EDT [facility] MCHC 31.4 30.7 - 35.5 g/dL LAB HEMATOLOGY METHOD 03/08/2025 7:55 PM EDT [facility] RDW 16.6(H) 11.5 - 14.5 % LAB HEMATOLOGY METHOD 03/08/2025 7:55 PM EDT [facility] MPV 11.8 8.8 - 12.5 fL LAB HEMATOLOGY METHOD 03/08/2025 7:55 PM EDT [facility] nRBC 0.0 <=0.0 per 100 WBCs LAB HEMATOLOGY METHOD 03/08/2025 7:55 PM EDT [facility] Differential Type Manual LAB HEMATOLOGY METHOD 03/08/2025 7:55 PM EDT [facility] Blood Venous blood specimen / Unknown Venipuncture / Unknown 03/08/2025 5:26 PM EDT 03/08/2025 5:31 PM EDT Narrative [facility] - 03/08/2025 7:55 PM EDT Therapeutic decision making should be based on absolute values, rather than percentages. The previously reported component Neutrophils % is no longer being reported.The previously reported component Lymphocytes % is no longer being reported.The previously reported component Monocytes % is no longer being reported.The previously reported component Eosinophils % is no longer being reported.The previously reported component Basophils % is no longer being reported.The previously reported component Immature Granulocytes % is no longer being reported.The previously reported component Absolute Neutrophils is no longer being reported.The previously reported component Absolute Lymphocytes is no longer being reported.The previously reported component Absolute Monocytes is no longer being reported.The previously reported component Absolute Eosinophils is no longer being reported.The previously reported component Absolute Basophils is no longer being reported.The previously reported component Absolute Immature Granulocytes is no longer being reported. us Kayleigh Carter MD LAB BLOOD ORDERABLES Final Resu lt [facility] [address] [place] [address] documented in this encounter Visit Diagnoses Diagnosis Acute on chronic respiratory failure with hypoxia- Primary Pneumonia of both lungs due to infectious organism, unspecified part of lung Pancytopenia Squamous cell carcinoma of left lung Acute on chronic respiratory failure with hypoxia Generalized weakness Pneumonia of both lungs due to infectious organism Pancytopenia due to chemotherapy (CMS/HCC) Malignant neoplasm of upper lobe of left lung (CMS/HCC) Dysphagia Squamous cell carcinoma of left lung documented in this encounter Admitting Diagnoses Diagnosis Pneumonia of both lower lobes due to infectious organism Pneumonia of both lungs due to infectious organism documented in this encounter Administered Medications Inactive Administered Medications - up to 3 most recent administrations Medication Order MAR Action Action Date Dose Rate Site acetaminophen (Tylenol) tablet 650 mg 650 mg, Oral, Every 6 hours scheduled, First dose on Fri03/08/25 at 2050, Until Discontinued, Routine Given 03/09/2025 5:30 AM EDT 650 mg Given 03/09/2025 12:48 AM EDT 650 mg Given 03/08/2025 9:13 PM EDT 650 mg acetaminophen (Tylenol) tablet 650 mg 650 mg, Oral, Every 6 hours scheduled, First dose on Fri03/14/25 at 1445, Until Discontinued, Routine Given 03/15/2025 11:24 AM EDT 650 mg Given 03/15/2025 6:06 AM EDT 650 mg Given 03/14/2025 11:14 PM EDT 650 mg acetaminophen (Tylenol) tablet 650 mg 650 mg, Oral, Every 6 hours PRN, Starting on Fri03/15/25 at 1315, Until Fri03/16/25 at 1848, Routine, fever, headaches, moderate pain, mild pain Given 03/16/2025 11:57 AM EDT 650 mg albuterol 108 (90 Base) MCG/ACT inhaler 2 puff 2 puff, Inhalation, Every 6 hours PRN, Starting on 03/12/25 at 0933, Until Fri03/16/25 at 1848, Routine, wheezing, shortness of breath azithromycin (Zithromax) 500 mg in sodium chloride 0.9% 250 mL IVPB (vial adapter required) 500 mg, Intravenous, Every 24 hours, 3 doses, First dose on Fri03/08/25 at 205, Last dose on Fri03/10/25 at 2054, Routine New Bag 03/08/2025 10:22 PM EDT 500 mg 275 m L/hr barium sulfate (Varibar Pudding) 40 % oral paste 15 mL 15 mL, Oral, Once in imaging, 1 dose, Starting on Fri03/10/25 at 1024, Until Fri03/10/25 at 1032, Routine, Imaging Protocol Orders Given 03/10/2025 10:32 AM EDT 15 mL barium sulfate (Varibar THIN Liquid) 40 % suspension 120 mL 120 mL, Oral, Once in imaging, 1 dose, Starting on Fri03/10/25 at 1024, Until Fri03/10/25 at 1032, Routine, Imaging Protocol Orders Given 03/10/2025 10:32 AM EDT 120 mL bisacodyl (Dulcolax) suppository 10 mg 10 mg, Rectal, Daily, First dose on Fri03/08/25 at 2125, Until Discontinued, Routine Given 03/09/2025 9:21 AM EDT 10 mg Given 03/08/2025 10:21 PM EDT 10 mg calcium carbonate (Tums) chewable tablet 500 mg 500 mg, Oral, Daily, First dose on Fri03/13/25 at 0600, Until Discontinued, Routine Given 03/13/2025 5:06 AM EDT 500 mg calcium carbonate (Tums) chewable tablet 500 mg 500 mg, Oral, 4 times daily PRN, Starting on Fri03/13/25 at 0800, Until Fri03/16/25 at 1848, Routine, indigestion, heartburn Given 03/16/2025 7:08 AM EDT 500 mg Given 03/15/2025 9:01 PM EDT 500 mg Given 03/13/2025 12:40 PM EDT 500 mg cariprazine (Vraylar) capsule 1.5 mg 1.5 mg, Oral, Daily, First dose on Fri03/14/25 at 1545, Until Discontinued, Routine Given 03/16/2025 9:12 AM EDT 1.5 mg Given 03/15/2025 9:16 AM EDT 1.5 mg Given 03/14/2025 3:56 PM EDT 1.5 mg cefepime (Maxipime) 2 g in sodium chloride 0.9% 100 mL IVPB (vial adapter required) 2 g, Intravenous, Every 8 hours, First dose on Fri03/08/25 at 2100, Until Discontinued, Routine New Bag 03/09/2025 9:21 AM EDT 2 g 36. 7 mL/hr New Bag 03/09/2025 12:48 AM EDT 2 g 36.7 mL/hr cefTRIAXone (Rocephin) 2 g in sodium chloride 0.9% 100 mL IVPB (vial adapter required) 2 g, Intravenous, Every 24 hours, 7 doses, First dose on Fri03/09/25 at 1155, Last dose on Fri03/15/25 at 1155, Routine New Bag 03/15/2025 11:24 AM EDT 2 g 220 mL/hr New Bag 03/14/2025 11:22 AM EDT 2 g 220 mL/hr New Bag 03/13/2025 12:34 PM EDT 2 g 220 mL/hr cyclobenzaprine (Flexeril) tablet 5 mg 5 mg, Oral, 3 times daily PRN, Starting on Fri03/08/25 at 2047, Until Fri03/10/25 at 0853, muscle spasms Given 03/09/2025 8:57 PM EDT 5 mg Given 03/09/2025 1:01 PM EDT 5 mg cyclobenzaprine (Flexeril) tablet 7.5 mg 7.5 mg, Oral, Every 8 hours scheduled, First dose (after last modification) on Fri03/10/25 at 0945, Until Discontinued Given 03/14/2025 1:56 PM EDT 7.5 mg Given 03/14/2025 6:17 AM EDT 7.5 mg Given 03/13/2025 9:54 PM EDT 7.5 mg cyclobenzaprine (Flexeril) tablet 7.5 mg 7.5 mg, Oral, 3 times daily PRN, Starting on Fri03/14/25 at 1400, Until Fri03/16/25 at 1848, muscle spasms Given 03/15/2025 8:18 PM EDT 7.5 mg enoxaparin (Lovenox) syringe 40 mg 40 mg, Subcutaneous, Daily, First dose on Fri03/08/25 at 2045, Until Discontinued, Routine Given 03/16/2025 9:09 AM EDT 40 mg Left Lower Abdomen Given 03/15/2025 9:14 AM EDT 40 mg Le ft Lower Abdomen Given 03/14/2025 9:02 AM EDT 40 mg Le ft Lower Abdomen famotidine (Pepcid) tablet 20 mg 20 mg, Oral, 2 times daily, First dose on Fri03/13/25 at 1145, Until Discontinued, Routine Given 03/16/2025 9:09 AM EDT 20 mg Given 03/15/2025 8:18 PM EDT 20 mg Given 03/15/2025 9:14 AM EDT 20 mg gabapentin (Neurontin) capsule 800 mg 800 mg, Oral, 3 times daily, First dose on Fri03/08/25 at 2100, Until Discontinued Given 03/16/2025 3:58 PM EDT 800 mg Given 03/16/2025 9:09 AM EDT 800 mg Given 03/15/2025 8:18 PM EDT 800 mg gi cocktail oral solution 30 mL 30 mL, Oral, 4 times daily PRN, Starting on Fri03/13/25 at 0758, Until Fri03/16/25 at 1848, Routine, heartburn, indigestion Given 03/13/2025 3:04 PM EDT 30 mL Given 03/13/2025 8:06 AM EDT 30 mL glycopyrrolate (Robinul) tablet 1 mg 1 mg, Oral, 2 times daily, First dose on 03/12/25 at 1045, Until Discontinued, Routine Given 03/16/2025 9:12 AM EDT 1 mg Given 03/15/2025 8:18 PM EDT 1 mg Given 03/15/2025 9:16 AM EDT 1 mg guaiFENesin (Mucinex) 12 hr tablet 600 mg 600 mg, Oral, 2 times daily, First dose on 03/12/25 at 1030, Until Discontinued, Routine Given 03/16/2025 9:09 AM EDT 600 mg Given 03/15/2025 8:18 PM EDT 600 mg Given 03/15/2025 9:16 AM EDT 600 mg HYDROmorphone (Dilaudid) injection 0.25 mg 0.25 mg, Intravenous, Every 4 hours PRN, Starting on Fri03/14/25 at 1358, Until Fri03/16/25 at 1848, Routine, severe pain Given 03/15/2025 10:06 PM EDT 0.25 m g Given 03/14/2025 10:12 PM EDT 0.25 mg HYDROmorphone (Dilaudid) injection 0.5 mg 0.5 mg, Intravenous, Every 3 hours PRN, Starting on Fri03/08/25 at 2049, Until Fri03/09/25 at 1507, Routine, severe pain Given 03/09/2025 9:19 AM EDT 0.5 mg Given 03/09/2025 4:04 AM EDT 0.5 mg HYDROmorphone (Dilaudid) injection 0.5 mg 0.5 mg, Intravenous, Every 6 hours PRN, Starting on Fri03/09/25 at 1507, Until Lesley 03/10/25 at 0853, Routine, severe pain Given 03/09/2025 5:02 PM EDT 0.5 mg HYDROmorphone (Dilaudid) injection 0.5 mg 0.5 mg, Intravenous, Every 4 hours PRN, Starting on Fri03/10/25 at 0852, Until 03/14/25 at 1359, Routine, severe pain Given 03/14/2025 10:30 AM EDT 0.5 m g Given 03/14/2025 6:17 AM EDT 0.5 mg Given 03/13/2025 4:30 PM EDT 0.5 mg hydrOXYzine pamoate (Vistaril) capsule 25 mg 25 mg, Oral, Once, 1 dose, On Fri03/15/25 at 0000, Routine Given 03/14/2025 11:14 PM EDT 25 mg hydrOXYzine pamoate (Vistaril) capsule 25 mg 25 mg, Oral, Every 6 hours PRN, Starting on Fri03/15/25 at 1302, Until Fri03/16/25 at 1848, Routine, anxiety Given 03/16/2025 9:09 AM EDT 25 mg Given 03/15/2025 8:18 PM EDT 25 mg Given 03/15/2025 1:37 PM EDT 25 mg iohexol (OMNIPaque) 350 MG/ML injection 100 mL 100 mL, Intravenous, Once in imaging, 1 dose, Starting on Fri03/08/25 at 2314, Until Fri03/08/25 at 2314, Routine, Imaging Protocol Orders Given 03/08/2025 11:14 PM EDT 80 mL ipratropium-albuterol (Duo-Neb) 0.5-2.5 mg/3 mL nebulizer solution 3 mL 3 mL, Nebulization, Every 6 hours RT, First dose on Fri03/08/25 at 2100, Until Discontinued, Routine Given 03/10/2025 3:07 AM EDT 3 mL Given 03/09/2025 9:24 PM EDT 3 mL Given 03/09/2025 8:34 AM EDT 3 mL ipratropium-albuterol (Duo-Neb) 0.5-2.5 mg/3 mL nebulizer solution 3 mL 3 mL, Nebulization, Every 6 hours PRN, Starting on Fri03/10/25 at 0730, Until Fri03/16/25 at 1848, Routine, wheezing, shortness of breath Given 03/12/2025 10:13 AM EDT 3 mL Given 03/10/2025 9:39 AM EDT 3 mL lactated Ringer's bolus 1,000 mL 1,000 mL, Intravenous, Once, 1 dose, On Fri03/08/25 at 2050, Administer over 2 Hours, Routine New Bag 03/08/2025 10:21 PM EDT 1,000 mL 500 mL/hr lactated Ringer's bolus 1,000 mL 1,000 mL, Intravenous, Once, 1 dose, On Fri03/09/25 at 0110, Administer over 2 Hours, Routine New Bag 03/09/2025 3:00 AM EDT 1,000 mL 500 mL/hr lactated Ringer's bolus 1,000 mL 1,000 mL, Intravenous, Once, 1 dose, On Fri03/09/25 at 0515, Administer over 1 Hours, Routine New Bag 03/09/2025 5:29 AM EDT 1,000 mL 1000 mL/hr lidocaine (Lidoderm) 5 % patch 1 patch 1 patch, Apply externally, Every 24 hours, First dose on Fri03/08/25 at 2054, Until Discontinued, Administer over 12 Hours, Routine Medication Applied 03/12/2025 9:17 PM EDT 1 patch Back Medication Applied 03/11/2025 9:07 PM EDT 1 patch Back Medication Applied 03/10/2025 9:42 PM EDT 1 patch Back magnesium oxide (Mag-Ox) tablet 400 mg 400 mg, Oral, Once as needed, 1 dose, Starting on Fri03/14/25 at 0342, Until Fri03/14/25 at 1030, Routine, For magnesium value 1.5 to 1.8 and patient having LESS THAN or EQUAL to 3 loose stools per dayIndications:Squamous cell carcinoma of left lung Given 03/14/2025 10:30 AM EDT 400 mg magnesium sulfate IVPB 2 g 2 g, Intravenous, Once, 1 dose, On Fri03/14/25 at 0815, Routine New Bag 03/14/2025 9:05 AM EDT 2 g 25 mL/hr melatonin tablet 6 mg 6 mg, Oral, Nightly, First dose on Fri03/08/25 at 2150, Until Discontinued, Routine Given 03/15/2025 8:18 PM EDT 6 mg Given 03/14/2025 8:35 PM EDT 6 mg Given 03/13/2025 8:22 PM EDT 6 mg mometasone-formoterol (Dulera 200) 200-5 MCG/ACT inhaler 2 puff 2 puff, Inhalation, 2 times daily, First dose on Fri03/12/25 at 1045, Until Discontinued, Routine Given 03/16/2025 9:10 AM EDT 2 puffs Given 03/15/2025 8:18 PM EDT 2 puffs Given 03/15/2025 9:16 AM EDT 2 puffs ondansetron (Zofran) 4 MG/5ML solution 4 mg 4 mg, Oral, Every 6 hours PRN, Starting on Fri03/08/25 at 2038, Until Fri03/16/25 at 1848, Routine, nausea, vomiting ondansetron (Zofran) injection 4 mg 4 mg, Intravenous, Every 6 hours PRN, Starting on Fri03/08/25 at 2038, Until Fri03/16/25 at 1848, Routine, vomiting, nausea Given 03/12/2025 4:28 PM EDT 4 mg Given 03/11/2025 10:38 PM EDT 4 mg Given 03/11/2025 2:21 PM EDT 4 mg ondansetron ODT (Zofran-ODT) disintegrating tablet 4 mg 4 mg, Oral, Every 6 hours PRN, Starting on Fri03/08/25 at 2038, Until Fri03/16/25 at 1848, Routine, nausea, vomiting oxyCODONE (Roxicodone) immediate release tablet 10 mg 10 mg, Oral, Every 4 hours PRN, Starting on Fri03/10/25 at 0852, Until Fri03/16/25 at 1848, Routine, severe pain Given 03/15/2025 9:01 PM EDT 10 mg Given 03/15/2025 1:37 PM EDT 10 mg Given 03/15/2025 9:15 AM EDT 10 mg oxyCODONE (Roxicodone) immediate release tablet 5 mg 5 mg, Oral, Every 4 hours PRN, Starting on Fri03/08/25 at 2049, Until Fri03/10/25 at 0853, Routine, moderate pain Given 03/09/2025 1:01 PM EDT 5 mg Given 03/09/2025 5:31 AM EDT 5 mg oxyCODONE (Roxicodone) immediate release tablet 5 mg 5 mg, Oral, Every 4 hours PRN, Starting on Fri03/10/25 at 0852, Until Fri03/16/25 at 1848, Routine, moderate pain Given 03/16/2025 9:09 AM EDT 5 mg Given 03/14/2025 2:02 PM EDT 5 mg Given 03/13/2025 6:47 PM EDT 5 mg pantoprazole (Protonix) EC tablet 40 mg 40 mg, Oral, Daily, First dose on Fri03/08/25 at 2145, Until Discontinued, Routine Given 03/16/2025 9:09 AM EDT 40 mg Given 03/15/2025 9:14 AM EDT 40 mg Given 03/14/2025 9:05 AM EDT 40 mg polyethylene glycol (Miralax) packet 17 g 17 g, Oral, Daily, First dose on Fri03/08/25 at 2045, Until Discontinued, Routine Given 03/15/2025 9:14 AM EDT 17 g Given 03/14/2025 9:02 AM EDT 17 g Given 03/13/2025 10:38 AM EDT 17 g senna (Senokot) tablet 17.2 mg 17.2 mg (2 tablet), Oral, Nightly, First dose on Fri03/08/25 at 2100, Until Discontinued, Routine Given 03/08/2025 9:13 PM EDT 17.2 mg senna (Senokot) tablet 17.2 mg 17.2 mg (2 tablet), Oral, 2 times daily, First dose (after last modification) on Fri03/09/25 at 2100, Until Discontinued, Routine Given 03/16/2025 9:09 AM EDT 17.2 mg Given 03/15/2025 8:18 PM EDT 17.2 mg Given 03/15/2025 9:14 AM EDT 17.2 mg sodium chloride 0.9 % bolus 1,000 mL 1,000 mL, Intravenous, Once, 1 dose, On Fri03/11/25 at 1230, Administer over 90 Minutes, Routine New Bag 03/11/2025 1:21 PM EDT 1,000 mL 666.7 mL/hr sodium chloride 0.9 % flush 10 mL 10 mL, Intravenous, Every 12 hours, First dose on Fri03/08/25 at 2045, Until Discontinued, Routine Given 03/16/2025 9:12 AM EDT 10 mL Given 03/15/2025 8:00 PM EDT 10 mL Given 03/15/2025 9:17 AM EDT 10 mL sodium chloride 0.9 % flush 10 mL 10 mL, Intravenous, As needed, Starting on Fri03/08/25 at 203, Until Fri03/16/25 at 1848, Routine, line care sodium chloride-sodium bicarbonate (Salt/Soda) oral rinse 15 mL 15 mL, Swish & Spit, 4 times daily PRN, Starting on Fri03/08/25 at 2050, Until Fri03/16/25 at 1848, Routine, mucositis, mucositis prevention tamsulosin (Flomax) 24 hr capsule 0.4 mg 0.4 mg, Oral, Daily with dinner, First dose on Fri03/09/25 at 1800, Until Discontinued, Routine Given 03/15/2025 6:44 PM EDT 0.4 mg Given 03/14/2025 5:53 PM EDT 0.4 mg Given 03/13/2025 6:46 PM EDT 0.4 mg vancomycin in NS (Vancocin) IVPB 1,250 mg 1,250 mg (rounded from 1,208 mg = 20 mg/kg 60.4 kg), Intravenous, Once, 1 dose, On Fri03/08/25 at 2200, at 200 mL/hr, Routine New Bag 03/09/2025 3:58 AM EDT 1,250 mg 200 mL/hr documented in this encounter Active and Recently Administered Medications Times are shown in EDT. Scheduled Medication Order 03/14/2025 03/15/2025 03/16/2025 acetaminophen (Tylenol) tablet 650 mg (CANCELED) 650 mg, Oral, Every 6 hours scheduled, First dose on Fri03/14/25 at 1445, Until Discontinued, Routine 1556 (Given - Provider: Sena Eduardo RN)1753 (Given - Provider: Sena Eduardo RN)2314 (Given - Provider: Malaika Eden RN) 0606 (Given - Provider: Mlaaika Eden RN)1124 (Given - Provider: Luz Cervantes RN) cariprazine (Vraylar) capsule 1.5 mg 1.5 mg, Oral, Daily, First dose on Fri03/14/25 at 1545, Until Discontinued, Routine 1556 (Given - Provider: Sena Eduardo RN) 0916 (Given - Provider: Luz Cervantes RN) 0912 (Given - Provider: Jovana Grady) cefTRIAXone (Rocephin) 2 g in sodium chloride 0.9% 100 mL IVPB (vial adapter required) (COMPLETED) 2 g, Intravenous, Every 24 hours, 7 doses, First dose on Fri03/09/25 at 1155, Last dose on Fri03/15/25 at 1155, Routine 1122 (New Bag - Provider: Sena Eduardo RN) 1124 (New Bag - Provider: Luz Cervantes RN) cyclobenzaprine (Flexeril) tablet 7.5 mg (CANCELED) 7.5 mg, Oral, Every 8 hours scheduled, First dose (after last modification) on Fri03/10/25 at 0945, Until Discontinued 0617 (Given - Provider: Malaika Eden RN)1356 (Given - Provider: Sena Eduardo RN) enoxaparin (Lovenox) syringe 40 mg 40 mg, Subcutaneous, Daily, First dose on Fri03/08/25 at 2045, Until Discontinued, Routine 0902 (Given - Provider: Sena Eduardo RN) 0914 (Given - Provider: Luz Cervantes RN) 0909 (Given - Provider: Jovana Grady) famotidine (Pepcid) tablet 20 mg 20 mg, Oral, 2 times daily, First dose on Fri03/13/25 at 1145, Until Discontinued, Routine 0905 (Given - Provider: Sena Eduardo RN)203 (Given - Provider: Malaika Eden RN) 0914 (Given - Provider: Luz Cervantes RN)2017 (Given - Provider: Malaika Eden RN) 0909 (Given - Provider: Jovana Grady) gabapentin (Neurontin) capsule 800 mg 800 mg, Oral, 3 times daily, First dose on Fri03/08/25 at 2100, Until Discontinued 09 (Given - Provider: Sena Eduardo RN)155 (Given - Provider: Sena Eduardo RN)2034 (Given - Provider: Malaika Eden RN) 913 (Given - Provider: Luz Cervantes RN)162 (Given - Provider: Luz Cervantes RN)2017 (Given - Provider: Malaika Eden RN) 09 (Given - Provider: Jovana Grady)1558 (Given - Provider: Jovana Grady) glycopyrrolate (Robinul) tablet 1 mg 1 mg, Oral, 2 times daily, First dose on Fri03/12/25 at 1045, Until Discontinued, Routine 09 (Given - Provider: Sena Eduardo RN)2035 (Given - Provider: Malaika Eden RN) 0916 (Given - Provider: Luz Cervantes RN)2017 (Given - Provider: Malaika Eden RN) 0912 (Given - Provider: Jovana Grady) guaiFENesin (Mucinex) 12 hr tablet 600 mg 600 mg, Oral, 2 times daily, First dose on Fri03/12/25 at 1030, Until Discontinued, Routine 09 (Given - Provider: Sena Eduardo RN)2036 (Given - Provider: Malaika Eden RN) 0916 (Given - Provider: Luz Cervantes RN)2017 (Given - Provider: Malaika Eden RN) 0909 (Given - Provider: Jovana Grady) hydrOXYzine pamoate (Vistaril) capsule 25 mg (COMPLETED) 25 mg, Oral, Once, 1 dose, On Fri03/15/25 at 0000, Routine 2314 (Given - Provider: Malaika Eden RN) lidocaine (Lidoderm) 5 % patch 1 patch 1 patch, Apply externally, Every 24 hours, First dose on Fri03/08/25 at 205, Until Discontinued, Administer over 12 Hours, Routine 2035 (Not Given - Provider: Malaika Eden RN - Reason: Patient/family refused) 2000 (Not Given - Provider: Malaika Eden RN - Reason: Patient/family refused) magnesium sulfate IVPB 2 g (COMPLETED) 2 g, Intravenous, Once, 1 dose, On Fri03/14/25 at 0815, Routine 904 (New Bag - Provider: Sena Eduardo RN) melatonin tablet 6 mg 6 mg, Oral, Nightly, First dose on Fri03/08/25 at 2150, Until Discontinued, Routine 2034 (Given - Provider: Malaika Eden RN) 2017 (Given - Provider: Malaika Eden RN) mometasone-formoterol (Dulera 200) 200-5 MCG/ACT inhaler 2 puff 2 puff, Inhalation, 2 times daily, First dose on Fri03/12/25 at 1045, Until Discontinued, Routine 904 (Given - Provider: Sena Eduardo RN)2036 (Given - Provider: Malaika Eden RN) 915 (Given - Provider: Luz Cervantes, DONNA)2017 (Given - Provider: Malaika Eden RN) 0910 (Given - Provider: Jovana Grady) pantoprazole (Protonix) EC tablet 40 mg 40 mg, Oral, Daily, First dose on Fri03/08/25 at 2145, Until Discontinued, Routine 904 (Given - Provider: Sena Eduardo RN) 0914 (Given - Provider: Luz Cervantes RN) 09 (Given - Provider: Jovana Grady) polyethylene glycol (Miralax) packet 17 g 17 g, Oral, Daily, First dose on Fri03/08/25 at 204, Until Discontinued, Routine 09 (Given - Provider: Sena Eduardo RN) 0914 (Given - Provider: Luz Cervantes RN) 0920 (Not Given - Provider: Jovana Grady - Reason: Patient/family refused) senna (Senokot) tablet 17.2 mg 17.2 mg (2 tablet), Oral, 2 times daily, First dose (after last modification) on Fri03/09/25 at 2100, Until Discontinued, Routine 904 (Given - Provider: Sena Eduardo, DONNA)2034 (Not Given - Provider: Malaika Eden RN - Reason: Patient/family refused) 913 (Given - Provider: Luz Cervantes, RN)2017 (Given - Provider: Malaika Eden, DONNA) 09 (Given - Provider: Jovana Grady) sodium chloride 0.9 % flush 10 mL(Linked Group 1) 10 mL, Intravenous, Every 12 hours, First dose on Fri03/08/25 at 2045, Until Discontinued, Routine 906 (Given - Provider: Sena Eduardo RN)2035 (Given - Provider: Malaika Eden RN) 09 (Given - Provider: Luz Cervantes, DONNA)1999 (Given - Provider: Malaika Eden RN) 09 (Given - Provider: Jovana Grady) tamsulosin (Flomax) 24 hr capsule 0.4 mg 0.4 mg, Oral, Daily with dinner, First dose on Fri03/09/25 at 1800, Until Discontinued, Routine 1753 (Given - Provider: Sena Eduardo, DONNA) 1844 (Given - Provider: Luz Cervantes, DONNA) 1800 (Canceled Entry - Provider: Automatic Discharge Provider - Comment: Automatically canceled at discontinue of medication order) PRN Medication Order 03/14/2025 03/15/2025 03/16/2025 acetaminophen (Tylenol) tablet 650 mg 650 mg, Oral, Every 6 hours PRN, Starting on Fri03/15/25 at 1315, Until Fri03/16/25 at 1848, Routine, fever, headaches, moderate pain, mild pain 1157 (Given - Provider: Jovana Grady) albuterol 108 (90 Base) MCG/ACT inhaler 2 puff 2 puff, Inhalation, Every 6 hours PRN, Starting on 03/12/25 at 0933, Until Fri03/16/25 at 1848, Routine, wheezing, shortness of breath calcium carbonate (Tums) chewable tablet 500 mg 500 mg, Oral, 4 times daily PRN, Starting on Fri03/13/25 at 0800, Until Fri03/16/25 at 1848, Routine, indigestion, heartburn 2101 (Given - Provider: Malaika Eden RN) 0708 (Given - Provider: Malaika Eden RN) cyclobenzaprine (Flexeril) tablet 7.5 mg 7.5 mg, Oral, 3 times daily PRN, Starting on Fri03/14/25 at 1400, Until Fri03/16/25 at 1848, muscle spasms 2018 (Given - Provider: Malaika Eden RN) gi cocktail oral solution 30 mL 30 mL, Oral, 4 times daily PRN, Starting on Fri03/13/25 at 0758, Until Fri03/16/25 at 1848, Routine, heartburn, indigestion HYDROmorphone (Dilaudid) injection 0.25 mg 0.25 mg, Intravenous, Every 4 hours PRN, Starting on Fri03/14/25 at 1358, Until Fri03/16/25 at 1848, Routine, severe pain 2212 (Given - Provider: Malaika Eden RN) 2206 (Given - Provider: Malaika Eden RN) HYDROmorphone (Dilaudid) injection 0.5 mg (CANCELED) 0.5 mg, Intravenous, Every 4 hours PRN, Starting on Fri03/10/25 at 0852, Until Fri03/14/25 at 1359, Routine, severe pain 0617 (Given - Provider: Malaika Eden RN)1030 (Given - Provider: Sena Eduardo RN) hydrOXYzine pamoate (Vistaril) capsule 25 mg 25 mg, Oral, Every 6 hours PRN, Starting on Fri03/15/25 at 1302, Until Fri03/16/25 at 1848, Routine, anxiety 1337 (Given - Provider: Luz Cervantes RN)2018 (Given - Provider: Malaika Eden RN) 0909 (Given - Provider: Jovana Grady) ipratropium-albuterol (Duo-Neb) 0.5-2.5 mg/3 mL nebulizer solution 3 mL 3 mL, Nebulization, Every 6 hours PRN, Starting on Fri03/10/25 at 0730, Until Fri03/16/25 at 1848, Routine, wheezing, shortness of breath magnesium oxide (Mag-Ox) tablet 400 mg (COMPLETED) 400 mg, Oral, Once as needed, 1 dose, Starting on Fri03/14/25 at 0342, Until Fri03/14/25 at 1030, Routine, For magnesium value 1.5 to 1.8 and patient having LESS THAN or EQUAL to 3 loose stools per day 1030 (Given - Provider: Sena Eduardo RN) ondansetron (Zofran) 4 MG/5ML solution 4 mg(Linked Group 2) 4 mg, Oral, Every 6 hours PRN, Starting on Fri03/08/25 at 203, Until Fri03/16/25 at 1848, Routine, nausea, vomiting ondansetron (Zofran) injection 4 mg(Linked Group 2) 4 mg, Intravenous, Every 6 hours PRN, Starting on Fri03/08/25 at 2038, Until Fri03/16/25 at 1848, Routine, vomiting, nausea ondansetron ODT (Zofran-ODT) disintegrating tablet 4 mg(Linked Group 2) 4 mg, Oral, Every 6 hours PRN, Starting on Fri03/08/25 at 2038, Until Fri03/16/25 at 1848, Routine, nausea, vomiting oxyCODONE (Roxicodone) immediate release tablet 10 mg(Linked Group 3) 10 mg, Oral, Every 4 hours PRN, Starting on Fri03/10/25 at 0852, Until Fri03/16/25 at 1848, Routine, severe pain 0308 (Given - Provider: Malaika Eden RN)0904 (Given - Provider: Sena Eduardo RN)1402 (See Alternative - Provider: Sena Eduardo RN)2043 (Given - Provider: Malaika Eden RN) 0251 (Given - Provider: Malaika Eden RN)0915 (Given - Provider: Luz Cervantes RN)1337 (Given - Provider: Luz Cervantes RN)2101 (Given - Provider: Malaika Eden RN) 0909 (See Alternative - Provider: Jovana Grady) oxyCODONE (Roxicodone) immediate release tablet 5 mg(Linked Group 3) 5 mg, Oral, Every 4 hours PRN, Starting on Fri03/10/25 at 0852, Until Fri03/16/25 at 1848, Routine, moderate pain 0308 (See Alternative - Provider: Malaika Eden RN)0904 (See Alternative - Provider: Sena Eduardo, RN)1402 (Given - Provider: Sena Eduardo, RN)2043 (See Alternative - Provider: Malaika Eden RN) 0251 (See Alternative - Provider: Malaika Eden RN)0915 (See Alternative - Provider: Luz Cervantes, DONNA)1337 (See Alternative - Provider: Luz Cervantes, RN)2101 (See Alternative - Provider: Malaika Eden RN) 0909 (Given - Provider: Jovana Grady) sodium chloride 0.9 % flush 10 mL(Linked Group 1) 10 mL, Intravenous, As needed, Starting on Fri03/08/25 at 2038, Until Fri03/16/25 at 1848, Routine, line care sodium chloride-sodium bicarbonate (Salt/Soda) oral rinse 15 mL 15 mL, Swish & Spit, 4 times daily PRN, Starting on Fri03/08/25 at 2049, Until Fri03/16/25 at 1848, Routine, mucositis, mucositis prevention Linked Groups Order Group 1: Insert peripheral IV (CANCELED) Once, On Fri03/08/25 at 2039, For 1 occurrence And Saline lock IV (CANCELED) Once, On Fri03/08/25 at 2039, For 1 occurrence And sodium chloride 0.9 % flush 10 mLJump to med 10 mL, Intravenous, Every 12 hours, First dose on Fri03/08/25 at 2044, Until Discontinued, Routine And sodium chloride 0.9 % flush 10 mLJump to med 10 mL, Intravenous, As needed, Starting on Fri03/08/25 at 2038, Until Fri03/16/25 at 1848, Routine, line care Group 2: ondansetron ODT (Zofran-ODT) disintegrating tablet 4 mgJump to med 4 mg, Oral, Every 6 hours PRN, Starting on Fri03/08/25 at 2038, Until Fri03/16/25 at 1848, Routine, nausea, vomiting Or ondansetron (Zofran) injection 4 mgJump to med 4 mg, Intravenous, Every 6 hours PRN, Starting on Fri03/08/25 at 2039, Until Fri03/16/25 at 1848, Routine, vomiting, nausea Or ondansetron (Zofran) 4 MG/5ML solution 4 mgJump to med 4 mg, Oral, Every 6 hours PRN, Starting on Fri03/08/25 at 2038, Until Fri03/16/25 at 1848, Routine, nausea, vomiting Group 3: oxyCODONE (Roxicodone) immediate release tablet 5 mgJump to med 5 mg, Oral, Every 4 hours PRN, Starting on Fri03/10/25 at 0852, Until Fri03/16/25 at 1848, Routine, moderate pain Or oxyCODONE (Roxicodone) immediate release tablet 10 mgJump to med 10 mg, Oral, Every 4 hours PRN, Starting on Fri03/10/25 at 0852, Until Fri03/16/25 at 1848, Routine, severe pain documented in this encounter Additional Health Concerns Infection Onset Date Last Indicated Resolved Time Respiratory Rule-Out 03/08/2025 03/09/2025 025 8:29 AM EDT COVID-19 Rule-Out 03/13/2025 03/13/2025 03/13/2025 2:00 PM EDT Respiratory Rule-Out 03/13/2025 03/13/2025 025 3:05 PM EDT Assessment Noted Time A fall risk assessment has been complete d for the patient 03/02/2025 10:44 AM EDT A Body Mass Index follow-up plan has been documented for the patient 03/16/2025 4:08 PM EDT documented as of this encounter Care Teams Car Racer Relationship Specialty Start Date End Date Constantine Stiles APRN [address] [place] [address] KANG Whitten [id number] PCP - General 01/21/23 Farhat Gómez MD [address] [id number] Consulting Physician Radiation Oncology 10/27/24 documented as of this encounter
[2025-03-19] VITALS (7 sets, daily range): BP systolic 95–117; BP diastolic 59–73; PULSE 90–107; RESP 15–18; TEMP 36.8–37.1; O2SAT 93–98; BMI 19.0
--- OUTSIDE RECORDS SUMMARY | 2025-03-19 18:37 | XMS_ITS | Encounter Summary ---
Author Organization Healthcare Address [address] [place] [address] Care Team Providers Care Senior Strategy Analyst Name Role Phone Constantine Stiles APRN Primary Care Provider [phone] Lars Dalton MD Unavailable Farhat Gómez MD Unavailable Alanis Lebron LPN Unavailable Unavailabl e Encounter Details Date Type Department Care Team (Late st Contact Info) Description 04/27/2022 Orders Only External Location [address] [place] [address] Adria Eldridge MD [address] [place] [address] Social History Tobacco Use Types Packs/Day Years [...] Pav CC Head, Neck & Respiratory 800 [facility], [address]nd [place] [address] 03/23/2025 11:00 AM EDT Office Visit Pav CC Head, Neck & Respiratory 800 [facility], [address] [place] [address] Maninder Zhang MD 800 [facility] Shannan Dubois [address] [address] 03/23/2025 12:00 PM EDT Appointment PAV H Infusion [address] [place] [address] documented as of this encounter Procedures Procedure [...] as of this encounter Care Teams Senior Strategy Analyst Relationship Specialty Start Date End Date Constantine Stiles APRN [address] [place] [address] PCP - General 01/21/23 Lars Dalton MD [address] [address] Consulting Physician Radiation Oncology 03/08/24 Farhat Gómez MD [address] [address] Consulting Physician Radiation Oncology 10/27/24 Alanis Lebron LPN [facility] TCM Nurse 03/17/25 documented as of this encounter
--- OUTSIDE RECORDS SUMMARY | 2025-03-19 18:37 | XMS_ITS | Encounter Summary ---
Author Organization Healthcare Address [address] [place] [address] Care Team Providers Care Citrus Picker Name Role Phone Constantine Stiles APRN Primary Care Provider [phone] Farhat Gómez MD Unavailable Alanis Lebron LPN Unavailable Unavailabl e Reason for Visit * Reason Comments TCM Call Encounter Details Date Type Department Care Team (Late st Contact Info) Description 03/17/2025 Patient Outreach [facility] [address], [address] [place] [address] Alanis Lebron LPN [facility] TCM Call Social History Tobacco [...] time in the past 12 m [facility], were you homeless or living in a chcf (including now)? No 03/09/2025 CAGE ASSESSMENT Answer [...] drink first t ashanti in the morning (EYE-STOCKROOM HELPER) to steady your nerves or to get [...] [facility], [address] [place] [address] 03/23/2025 11:00 AM EDT Office Visit Pav CC Head[facility] Neck & Respiratory [address] [facility], [address] [place] [address] Maninder Zhang MD [address] [facility] Shannan Dubois [address] [place] [address] 03/23/2025 12:00 PM EDT Appointment PAV H Infusion [address] [place] [address] documented as of this encounter Visit Diagnoses Not on filedocumented in this encounter Additional Health Concerns Assessment Noted Time A fall risk assessment has been complete d for the patient 03/02/2025 10:44 AM EDT A Body Mass Index follow-up plan has been documented for the patient 03/16/2025 4:08 PM EDT documented as of this encounter Care Teams Citrus Picker Relationship Specialty Start Date End Date Constantine Stiles APRN [address] [place] [address] PCP - General 01/21/23 Farhat Gómez MD [address] [facility] [address] [place] [address] Consulting Physician Radiation Oncology 10/27/24 Alanis Lebron LPN [facility] TCM Nurse 03/17/25 documented as of this encounter
--- OUTSIDE RECORDS SUMMARY | 2025-03-19 18:37 | XMS_ITS | Encounter Summary ---
Author Organization Healthcare Address [address] [place] [address] Care Team Providers Care Dentist Private Practice Name Role Phone Constantine Stiles APRN Primary Care Provider [phone] Lars Dalton MD Unavailable Farhat Gómez MD Unavailable Alanis Lebron LPN Unavailable Unavailabl e Encounter Details Date Type Department Care Team (Late Contact Info) Description 02/28/2023 Orders Only External Location [address] [place] [address] Provider, External Social History Tobacco [...] Pav CC Head[facility] Neck & Respiratory 800 [facility], 2nd [place] [address] 03/23/2025 11:00 AM EDT Office Visit Pav CC Head, Neck & Respiratory 800 [facility], [address]nd [place] [address] Maninder Zhang MD 800 [facility] Shannan Dubois [facility] [address] [place] [address] 03/23/2025 12:00 PM EDT Appointment PAV H Infusion [address] [place] [address] documented as of this encounter Procedures Procedure [...] documented as of this encounter Care Teams Dentist Private Practice Relationship Specialty Start Date End Date Constantine Stiles APRN [address] [place] [address] PCP - General 01/21/23 Lars Dalton MD [address] [address] Consulting Physician Radiation Oncology 03/08/24 Farhat Gómez MD [address] [address] Consulting Physician Radiation Oncology 10/27/24 Alanis Lebron LPN [facility] TCM Nurse 03/17/25 documented as of this encounter
--- OUTSIDE RECORDS SUMMARY | 2025-03-19 18:38 | XMS_ITS | Encounter Summary ---
Author Organization Healthcare Address [address] [place] [address] Care Team Providers Care Webbing Supervisor Name Role Phone Constantine Stiles APRN Primary Care Provider [phone] Farhat Gómez MD Unavailable Encounter Details Date [...] any time in the past 12 m [facility], were you homeless or living in a prison (including now)? No 03/09/2025 CAGE ASSESSMENT Answer [...] drink first t ashanti in the morning (EYE-SHEET HEATER HELPER) to steady your nerves or to [...] 1 Month) No 03/08/2025 5:40 PM EDT Trevor Mullins RN 6. Suicidal Behavior (Lifetime) No 5:40 PM EDT Samreen Mullins RN documented as of this encounter Plan of Treatment Upcoming Encounters Date Type Department Care Team ([facility] st Contact Info) Description 03/23/2025 10:30 AM EDT Clinical Support Pav CC Head, Neck & Respiratory 800 [facility], [address]nd [place] [address] 03/23/2025 11:00 AM EDT Office Visit Pav CC Head, Neck & Respiratory 800 [facility], [address] [place] [address] Maninder Zhang MD 800 [facility] Shannan Dubois [facility] [address] [place] [address] 03/23/2025 12:00 PM EDT Appointment PAV H Infusion [address] [place] [address] documented as of this encounter Visit Diagnoses [...] documented as of this encounter Care Teams Webbing Supervisor Relationship Specialty Start Date End Date Constantine Stiles APRN [address] [place] [address] PCP - General 01/21/23 Farhat Gómez MD 800 [facility] [address] [place] [address] Consulting Physician Radiation Oncology 10/27/24 documented as of this encounter
--- OUTSIDE RECORDS SUMMARY | 2025-03-19 18:38 | XMS_ITS | Clinical Summary ---
Author Organization [facility] Address [address] [place] [address] Care Team Providers Care Medical Insurance Claims Processor Name Role Phone Constantine Stiles APRN Primary Care Provider [phone] Farhat Gómez MD Unavailable Alanis Lebron LPN [...] needed for pain, fever or headaches. Under [place] law, monthly prescriptions (30 days) can be [...] Care Team Description 03/17/2025 Patient Outreach [facility] [address] [facility] [address], [address] [place] [address] Alanis Lebron LPN TCM Call 03/14/2025 Travel 03/12/2025 Travel 03/10/2025 Travel 03/08/2025 4:56 PM EDT - 03/16/2025 4:48 PM EDT Hospital Encounter PAV A Inpatient [facility] [address] [place] [phone] Kayleigh Carter MD MacPherson, Alexandra, DO Murray, Sarah C, Pooja Garg MD Pneumonia of both lungs due to infectious organism, unspecified part of lung (Primary Dx); Pancytopenia; Squamous cell carcinoma of left lung; Acute on chronic respiratory failure with hypoxia; Generalized weakness Discharge Disposition: Home or Self Care 03/08/2025 Travel 03/08/2025 Orders Only External Location [address] [place] [phone] Provider, External 03/08/2025 Orders Only External Location [address] [place] [address] Provider, External 03/08/2025 Orders Only External Location [address] [place] [phone] Provider, External 03/02/2025 11:21 AM EDT - 03/02/2025 11:59 PM EDT Hospital Encounter PAV H Infusion [address] [place] [address] Malignant neoplasm of upper lobe of left lung (CMS/HCC) Discharge Disposition: Home or Self Care 03/02/2025 10:30 AM EDT - 03/02/2025 11:20 AM EDT Hospital Encounter [facility] H Infusion [address] [place] [address] Malignant neoplasm of upper lobe of left lung (CMS/HCC) (Primary Dx) Discharge Disposition: Home or Self Care 03/02/2025 9:00 AM EDT Office Visit [facility] [address] [address] Maninder Zhang MD Malignant neoplasm of upper lobe of left lung (CMS/HCC) (Primary Dx); Encounter for antineoplastic chemotherapy; Antineoplastic chemotherapy induced anemia 03/02/2025 8:45 AM EDT Clinical Support [facility] [address] [address] Malignant neoplasm of upper lobe of left lung (CMS/HCC) 03/02/2025 Travel 02/15/2025 Orders Only External Location [address] [place] [address] Provider, External 02/15/2025 Orders Only External Location [address] [place] [address] Provider, External 02/10/2025 Orders Only [facility] [address] [address] Tiffany Rosario, RN Squamous cell carcinoma of left lung (Primary Dx); Malignant neoplasm of upper lobe of left lung (CMS/HCC) 02/09/2025 12:30 PM EDT - 02/09/2025 11:59 PM EDT Hospital Encounter [facility] Infusion [address] [place] [address] Malignant neoplasm of upper lobe of left lung (CMS/HCC) (Primary Dx) Discharge Disposition: Home or Self Care 02/09/2025 11:30 AM EDT Office Visit [facility] [address] [address] Elsa Judge APRN Malignant neoplasm of upper lobe of left lung (CMS/HCC) (Primary Dx); Dyspnea on exertion; Chemotherapy induced nausea and vomiting 02/09/2025 11:15 AM EDT Clinical Support [facility] [address] [place] [address] 02/09/2025 Travel 02/09/2025 Orders Only [facility] [address] [place] [address] Maninder Zhang MD Malignant neoplasm of upper lobe of left lung (CMS/HCC) (Primary Dx) 02/09/2025 Telephone [facility] [address] [place] [address] Tiffany Rosario, DONNA 01/26/2025 Refill [facility] Radiation [id number] [place] [phone] Farhat Gómez MD 01/19/2025 9:11 AM EDT - 01/19/2025 11:59 PM EDT Hospital Encounter [facility] [address] [place] [phone] Malignant neoplasm of upper lobe of left lung (CMS/HCC) (Primary Dx) Discharge Disposition: Home or Self Care 01/19/2025 9:00 AM EDT Clinical Support [facility] [address] [place] [address] Malignant neoplasm of upper lobe of left lung (CMS/HCC) 01/19/2025 Travel 01/13/2025 Telephone [facility] [address], [address] [place] [phone] Tiffany Rosario, RN 01/12/2025 10:20 AM EDT Office Visit [facility] [address], [address] [place] [phone] Maninder Zhang MD Malignant neoplasm of upper lobe of left lung (CMS/HCC) (Primary Dx); Squamous cell carcinoma of left lung; Elevated glucose level; Encounter for antineoplastic chemotherapy 01/12/2025 Travel 01/10/2025 2:23 PM EDT - 01/10/2025 11:59 PM EDT Hospital Encounter [facility] A Radiology [address] [place] [address] Malignant neoplasm of upper lobe of left lung (CMS/HCC) Discharge Disposition: Home or Self Care 01/10/2025 1:45 PM EDT Clinical Support [facility] [address] [facility] [place] [address] Malignant neoplasm of upper lobe of left lung (CMS/HCC) 01/10/2025 Orders Only [facility] Res[facility] [address] [facility] [place] [phone] Maninder Zhang MD 01/10/2025 Travel 12/28/2024 2:37 PM EDT - 12/28/2024 11:59 PM EDT Hospital Encounter [facility] Radiation [address] [phone] Discharge Disposition: Still a Patient 12/28/2024 Orders Only [facility] Radiation [address] [address] Radiation Oncology, PhysicianMD 12/28/2024 Orders Only [facility] Radiation [address] [phone] Radiation Oncology, PhysicianMD 12/28/2024 Telephone [facility] [address] [phone] Tiffany Rosario RN 12/27/2024 2:42 PM EDT - 12/27/2024 11:59 PM EDT Hospital Encounter [facility] Radiation [address] [phone] Farhat Gómez MD Squamous cell carcinoma of left lung (Primary Dx) Discharge Disposition: Still a Patient 12/27/2024 2:42 PM EDT - 12/27/2024 11:59 PM EDT Hospital Encounter [facility] Radiation [address] [phone] Discharge Disposition: Still a Patient 12/27/2024 9:19 AM EDT - 12/27/2024 2:41 PM EDT Hospital Encounter [facility] Radiation [address] [phone] Discharge Disposition: Still a Patient 12/27/2024 Orders Only [facility] Radiation [address] [address] Radiation Oncology, PhysicianMD 12/27/2024 Travel 12/24/2024 2:34 PM EDT - 12/24/2024 11:59 PM EDT Hospital Encounter [facility] Radiation [address] [address] Discharge Disposition: Still a Patient 12/24/2024 Orders Only [facility] Radiation [address] [address] Radiation Oncology, PhysicianMD 12/23/2024 2:37 PM EDT - 12/23/2024 11:59 PM EDT Hospital Encounter [facility] Radiation [address] [phone] Discharge Disposition: Still a Patient 12/23/2024 Orders Only [facility] Radiation [address] [address] Radiation Oncology, PhysicianMD 12/22/2024 2:34 PM EDT - 12/22/2024 11:59 PM EDT Hospital Encounter [facility] Radiation [address] [address] Discharge Disposition: Still a Patient 12/22/2024 11:48 AM EDT - 12/22/2024 2:33 PM EDT Hospital Encounter [facility] H Infusion [address] [place] [address] Malignant neoplasm of upper lobe of left lung (CMS/HCC) (Primary Dx); Squamous cell carcinoma of left lung Discharge Disposition: Home or Self Care 12/22/2024 Orders Only [facility] CC Radiation [address] [address] Radiation Oncology, PhysicianMD 12/22/2024 Travel 2024 2:36 PM EDT - 2024 11:59 PM EDT Hospital Encounter [facility] Radiation [address] [address] Discharge Disposition: Still a Patient 2024 Orders Only [facility] CC Radiation [address] [address] Radiation Oncology, PhysicianMD 12/20/2024 3:25 PM EDT - 12/20/2024 11:59 PM EDT Hospital Encounter [facility] Radiation [address] [address] Farhat Gómez MD Malignant neoplasm of upper lobe of left lung (CMS/HCC) Discharge Disposition: Still a Patient 12/20/2024 2:32 PM EDT - 12/20/2024 3:24 PM EDT Hospital Encounter [facility] Radiation [address] [address] Discharge Disposition: Still a Patient 12/20/2024 8:44 AM EDT - 12/20/2024 2:31 PM EDT Hospital Encounter [facility] Radiation [address] [address] Discharge Disposition: Still a Patient 12/20/2024 Orders Only [facility] CC Radiation [address] [address] Radiation Oncology, PhysicianMD 12/20/2024 Travel from Last 3 Months Family History [...] any time in the past 12 [address] [place], were you homeless or living in a residential (including now)? No 03/09/2025 CAGE ASSESSMENT Answer [...] drink first t ashanti in the morning (EYE-NEON INSTALLER) to steady your nerves or to get [...] Upcoming Encounters Date Type Department Care Team ([facility] st Contact Info) Description 03/23/2025 10:30 AM EDT Clinical Support [facility] [address] [facility] [place] [address] 03/23/2025 11:00 AM EDT Office Visit [facility]ck [facility] Respiratory [address] [facility] [place] [address] Maninder Zhang MD [address] [facility] Shannan Dubois [facility] [address] [place] [address] 03/23/2025 12:00 PM EDT Appointment [facility] H Infusion [address] [place] [address] Health Maintenance Due Date Last Done Comments [facility]-Depression Screening 1965 [facility]-Infant/Child/Adol SDOH Screenings 1965 [facility]- SDOH Screenings 12/20/1981 [facility]-Adult SDOH Screenings 12/20/1981 [facility]-DTaP,Tdap,and Td Vaccines (1 - Tdap) 12/20/1982 [facility]-Pneumococcal Vaccine: 50+ Years (1 of 2 - PCV) 12/20/1982 [facility]-Zoster Vaccines (1 of 2) 12/20/1982 CT Colonography 12/20/2008 Colonoscopy 12/20/2008 FIT-DNA 12/20/2008 FIT 12/20/2008 FOBT 12/20/2008 Sigmoidoscopy 12/20/2008 [facility]-Colorectal Cancer Screening 12/20/2008 [id number] Vaccine (3 - Moderna risk series) 01/04/2021 [...] SESSION SUMMARY Routine 12/20/2024 3:22 PM EDT from Last 3 Months Results [...] MD LAB BLOOD ORDERABLES Final Res ult Performing Organization Address City/[facility]/ZIP Co de Phone Number [facility] [address] [place] [address] * Phosphorus (03/16/2025 2:23 AM EDT) Only the most recent of2 resultswithin the time period is included. Phosphorus, Plasma 3.5 2.5 - 4.5 mg/dL 03/16/2025 3:09 AM EDT [facility] Blood Venous blood specimen / Unknown Venipuncture / Unknown 03/16/2025 2:23 AM EDT 03/16/2025 2:38 AM EDT us Kathryn Moore MD LAB BLOOD ORDERABLES Final Resu lt Performing Organization Address City/[facility]/ZIP Co de Phone Number [facility] [address] [place] [address] * Magnesium (03/16/2025 2:23 AM EDT) Only [...] Resu lt [facility] [address] [place] [address] * (ABNORMAL) Comprehensive Metabolic Panel, Plasma (03/16/2025 [...] ult [facility] [address] [place] [address] * XR Chest 1 View (03/14/2025 8:30 [...] Res ult [facility] [address] [place] [address] * Type and Screen (03/14/2025 3:04 AM [...] ORDERAB LES Final Result BLOOD BANK [address] [place] [address], * (ABNORMAL) Basic Metabolic Panel, Plasma (03/14/2025 [...] ORDERABLES Final Res ult Performing Organization Address City/State/[facility] Co de Phone Number [facility] [address] [place] [address] * Microbiology Frequency Override (03/13/2025 12:57 PM EDT) [facility] Microbiology Frequency Override Test Comment respiratory viral panel 03/14/2025 5:28 AM EDT [facility] Swab Nasopharyngeal structure / Unknown Non-blood Collection / Unknown 03/13/2025 12:57 PM EDT 03/13/2025 1:10 PM EDT Kusum Barrera DO LAB MICROBIOLOGY - GENERAL ORD ERABLES Final Result Performing Organization Address [facility] de Phone Number [facility] [address] [place] [address] * SARS CoV-2/COVID-19 by PCR (03/13/2025 12:45 PM EDT) [facility] SARS CoV-2/COVID-1 9 RNA PCR Result Not Detected Not Detected 03/13/2025 2:00 PM EDT [facility] Swab Nasopharyngeal structure / Unknown Non-blood Collection / Unknown 03/13/2025 12:45 PM EDT 03/13/2025 1:10 PM EDT Narrative [facility] - 03/13/2025 2:00 PM EDT [...] symptoms consistent with COVID-19. Kusum Barrera DO [facility] MICROBIOLOGY - GENERAL ORD ERABLES Final Result Performing Organization Address [facility]/ZIP Co de Phone Number [facility] [address] [place] [address] * Nasopharyngeal Respiratory Panel (03/13/2025 12:45 PM EDT) Only the most recent of2 resultswithin the time period is included. Pathologist [facility] Nasopharyngeal Respiratory PCR Interpretation Not Detected for all analytes Not Detected for all analytes 03/13/2025 3:05 PM EDT [facility] Swab Nasopharyngeal structure / Unknown Non-blood [...] Respiratory PCR Panel is performed using the 24Symbolslex instrument. This test is FDA approved for use with Nasopharyngeal swabs only. This test is used for clinical purposes. It should not be regarded as investigational or for research. [facility] Clinical Microbiology Laboratory is certified under the Clinical Laboratory Improvement Amendments of 1988 (CLIA-88) as qualified to perform high complexity clinical laboratory testing. Kusum Barrera DO LAB MICROBIOLOGY - GENERAL ORD ERABLES Final Result [facility] [address] [place] [address] * Influenza A,B & Respiratory Syncytial Virus by PCR (03/13/2025 12:45 PM EDT) Pathologist [facility] Influenza A Virus PCR Result Not Detected Not Detected 03/14/2025 10:06 AM EDT [facility] Influenza B Virus PCR Result Not Detected Not Detected 03/14/2025 10:06 AM EDT [facility] Respiratory Syncytial Virus (RSV) PCR Result Not Detected Not Detected 03/14/2025 10:06 AM EDT [facility] Swab Nasopharyngeal structure / Unknown Non-blood Collection / Unknown 03/13/2025 12:45 PM EDT 03/13/2025 1:10 PM EDT Kusum Barrera DO LAB MICROBIOLOGY - GENERAL ORD ERABLES Final Result Performing Organization Address [facility] de Phone Number [facility] [address] [place] [address] * Blood Culture (Aerobic/Anaerobet Set) (03/12/2025 11:44 PM EDT) Only the most recent of3 resultswithin the time period is included. Culture No growth at day 5 DAVID 03/18/2025 3:01 AM EDT [facility] Blood Structure of right hand / Unknown Venipuncture / Unknown 03/12/2025 11:44 PM EDT 03/13/2025 1:58 AM EDT Spring Stewart MD LAB MICROBIOLOGY - GENERAL ORDER HUMERA Final Result Performing Organization Address [facility] Phone Number [facility] [address] [place] [address] * Cortisol (03/12/2025 5:14 PM EDT) Cortisol 16.50 Before 10am: 3.7 - 19.4. After 5pm: 2.9 - 17.3 ug/dL 03/12/2025 6:35 PM EDT [facility] Comment:Testing performed on Reid Geospatial Technician, standardized against LONGTERM Reference Standard concentration values assigned by LC-MS/MS and verified by BCR 192 and BCR 193 certified reference materials. Blood Venous blood specimen / Unknown Venipuncture / Unknown 03/12/2025 5:14 PM EDT 03/12/2025 5:18 PM EDT us Kusum Barrera DO LAB REF LAB BLOOD AND FLUID OR D Final Result [facility] [address] [place] [address] * US Abdomen Doppler Limited (03/12/2025 3:51 [...] of4 resultswithin the time period is included. Lactate, Venous, Whole Blood 1.3 0.5 - 2.2 mmol/L LAB HEMATOLOGY METHOD 03/11/2025 5:20 PM EDT [facility] Blood Venous blood specimen / Unknown Venipuncture / Unknown 03/11/2025 5:06 PM EDT 03/11/2025 5:17 PM EDT Kusum Barrera DO LAB BLOOD ORDERABLES Final Res ult Performing Organization Address [facility] Co de Phone Number [facility] [address] [place] [address] * Light Green Top (03/11/2025 3:32 AM EDT) Only the most recent of2 resultswithin the time period is included. Pathologist [facility] Extra Hold for add-ons 03/11/2025 6:34 AM EDT [facility] Comment:Auto resulted. Blood Venous blood specimen / Unknown 03/11/2025 3:32 AM EDT 03/11/2025 4:24 AM EDT Kusum Barrera DO LAB BLOOD ORDERABLES Final Res ult Performing Organization Address [facility] Co de Phone Number [facility] [address] [place] [address] * FL Modified Barium Swallow (03/10/2025 10:50 [...] Res ult [facility] [address] [place] [address] * (ABNORMAL) Manual Differential (03/10/2025 3:39 AM [...] EDT 03/10/2025 3:44 AM EDT us Kusum Barrera DO LAB BLOOD ORDERABLES Final Res ult [facility] [address] [place] [address] * Transfuse RBC (03/09/2025 11:15 AM EDT) Only the most recent of3 resultswithin the time period is included. Hyacinth Hansen DO BLOOD TRANSFUSION ORDERA BLES Final Result * PERIPHERAL IV (SMARTFORM LINK) (03/09/2025 9:07 AM EDT) Narrative Kerri Rodriguez RN - 03/09/2025 9:07 AM EDT Kerri Rodriguez RN 03/09/2025 9:08 AM Insert peripheral IV Performed by: Kerri Rodriguez [...] the time period is included. Product Code M2988R46 BLOO D BANK Dispense Status Transfused BLOOD BANK Blood Expiration Date [id number] BLOOD BANK Unit Number [id number] CH B LOOD BANK Product Blood Type 6200 BLOOD BANK Blood Type A+ BLOOD BANK Crossmatch Compatible BLOOD BANK Other [facility] B[facility] PRODUCT ORDER HUMERA Final Result Performing Organization Address City/[facility] Co de Phone Number BLOOD BANK [address] [place] [address], * Methicillin Resistant Staphylococcus aureus (MRSA) by PCR (03/09/2025 5:11 AM EDT) Methicillin Resistant Staphylococcus aureus (MRSA) by PCR Not Detected Not Detected 03/09/2025 7:56 AM EDT [facility] Swab Both anterior nares / Unknown [...] to perform high complexity clinical laboratory testing. Hyacinth Hansen LAB MICROBIOLOGY - [facility] AL ORDERABLES Final Result [facility] [address] [place] [address] * CT Angio Pulmonary Embolism (03/08/2025 11:28 [...] MD on 03/09/2025 12:05 AM Hyacinth Hansen DO IMG CT PROCEDURES Final Result * (ABNORMAL) [...] 9:35 PM EDT 03/08/2025 9:55 PM EDT [facility] MICROBIOLOGY - GENER AL ORDERABLES Final Result [facility] [address] [place] [address] * Urine Uribe Panel (03/08/2025 9:35 PM EDT) Extra Reflex urine culture not indicated 03/08/2025 11:02 PM EDT [facility] Urine Urine specimen obtained by clean catch procedure / Unknown Non-blood Collection / Unknown 03/08/2025 9:35 PM EDT 03/08/2025 9:53 PM [address] [facility] [place]INE [place] [address] * Urinalysis Microscopic Examination (03/08/2025 9:35 PM EDT) Urine Urine specimen obtained by clean catch procedure / Unknown Non-blood Collection / Unknown 03/08/2025 9:35 PM EDT 03/08/2025 9:53 PM EDT us Hyacinth Hansen DO LAB URINE ORDERABLES Fin al Result [facility] [address] [place] [address] * (ABNORMAL) Urinalysis with reflex microscopic (Culture NOT Included) (03/08/2025 9:35 PM EDT) Color, Urine Yellow LAB URINALYSIS - AUTOMATED METHOD 03/08/2025 10:07 PM EDT [facility] Clarity, Urine Clear LAB URINALYSIS - AUTOMATED METHOD 03/08/2025 10:07 PM EDT [facility] Spec [place], Urine >1.030(H) 1.005 - 1.030 LAB URINALYSIS [...] al Result [facility] [address] [place] [address] * EKG now - STAT (adult) (03/08/2025 5:31 PM EDT) EKG DIAGNOSIS CLASS Borderline Normal MUSE ECG Ventricular Rate 104 BPM MUSE ECG Atrial Rate 104 BPM MUSE ECG AK Interval 144 ms MUSE ECG QRSD Interval 102 ms MUSE ECG QT Interval 354 ms MUSE ECG QTC Interval 465 ms MUSE ECG R Earle 82 degrees MUSE ECG T Wave Earle 66 degrees MUSE ECG Diagnosis Sinus tachycardia MUSE ECG Diagnosis Otherwise normal ECG MUSE ECG Diagnosis MUSE ECG Diagnosis Confirmed by Myles Manley ([id number]) on 03/08/2025 6:58:57 PM MUSE ECG 03/08/2025 5:31 PM EDT 03/08/2025 6:58 PM EDT us Kayleigh Carter MD ECG ORDERABLES Final Result [...] Resu lt [facility] [address] [place] [address] * Hepatitis C Antibody - ED (03/08/2025 5:26 PM EDT) Pathologist [facility] Hepatitis C Antibody Negative Negative 03/08/2025 6:13 PM EDT [facility] Blood Venous blood specimen / Unknown Venipuncture / Unknown 03/08/2025 5:26 PM EDT 03/08/2025 5:34 PM EDT Kayleigh Carter MD LAB BLOOD ORDERABLES Final Resu lt Performing Organization Address City/[facility]/ZIP Co de Phone Number [facility] [address] [place] [address] * PT-INR (03/08/2025 5:26 PM EDT) Pathologist [facility] Prothrombin Time 14.3 12.0 - 14.3 sec 03/08/2025 5:47 PM EDT [facility] INR 1.1 0.9 - 1.1 03/08/2025 5:47 PM EDT [facility] Blood [...] INR 2.5 to 3.5 Prevention of recurrent [place] INR 2.5 to 3.5 us Kayleigh Carter MD LAB BLOOD ORDERABLES Final Resu lt [facility] [address] [place] [address] * CT OUTSIDE IMAGES (03/08/2025 2:29 PM [...] ORDERABLES Final Resul t Performing Organization Address City/[facility]/ZIP Co de Phone Number [facility] [address] [place] [address] * CT THORACIC OUTSIDE IMAGES (02/15/2025 8:54 [...] 12:17 PM EDT) Case Report Cytology Case: [id number] Authorizing Provider: Maninder Zhang MD Collected: 02/09/2025 1217 Ordering Location: [facility] Head, Neck & Received: 02/09/2025 1217 Respiratory Pathologist: Margie Garcia MD Specimen: Other, Fine Needle Aspiration (Specify Site), LEFT CHEST NODULE, SUPERFICIAL FINE NEEDLE ASPIRATION 02/11/2025 9:54 AM EDT [facility] Final Diagnosis CHEST NODULE, LEFT, SUPERFICIAL FINE NEEDLE ASPIRATION: - SUSPICIOUS FOR MALIGNANCY. SEE COMMENT. 02/11/2025 9:54 AM EDT [facility] at 0953 EDT Comment There are several atypical and degenerated squamous cells present, which are suspicious for squamous cell carcinoma. However, in the setting of a cystic lesion (with approximately 4 ml of straw-colored fluid obtained), the epithelial atypia could be reactive/degener ative, rather than neoplastic. 02/11/2025 9:54 AM EDT [facility] Immediate Evaluation FNA performed and/or [...] Re sult [facility] [address] [place] [address] * (ABNORMAL) Hemoglobin A1c (01/19/2025 8:58 AM [...] Adults <6.0% Children and Adolescents <7.5% Source: [place] [employer]. Standards of medical care in diabetes,2017. Diabetes Care.2017:40 (suppl 1):S1-S135. Maninder Zhang MD LAB BLOOD ORDERABLES Final Resul t [facility] [address] [place] [address] * CT Chest w IV Contrast (01/10/2025 [...] 3:00 PM EDT Physician Radiation Oncology RADIATION ONCMELANY [...] 2:51 PM EDT Physician Radiation Oncology RADIATION ONCMELANY [...] ARIA RADIATION ONCOLOGY 12/23/2024 2:54 PM EDT us Physician Radiation Oncology RADIATION [...] ARIA RADIATION ONCOLOGY 12/22/2024 2:55 PM EDT us Physician Radiation Oncology RADIATION ONCMELANY GY ORDERABLES [...] 3:22 PM EDT Physician Radiation Oncology RADIATION ONCMELANY GY ORDERABLES Final Result ARIA RADIATION ONCOLOGY from Last 3 Months Insurance [facility] MEDICAID Advance Directives * DNR/DNI (Latest Code [...] updated to appropriate status: Yes Care Teams Medical Insurance Claims Processor Relationship Specialty Start Date End Date Constantine Stiles APRN [address] [place] [id number] PCP - General 01/21/23 Farhat Gómez MD [address] [facility] [id number] [place] [address] Consulting Physician Radiation Oncology 10/27/24 Alanis Lebron LPN [facility] TCM Nurse 03/17/25
--- OUTSIDE RECORDS SUMMARY | 2025-03-19 18:38 | XMS_ITS | Encounter Summary ---
Author Organization Healthcare Address [address] [place] [address] Care Team Providers Care Senior Java Architect Name Role Phone Constantine Stiles APRN Primary Care Provider [phone] Farhat Gómez MD Unavailable Encounter Details Date [...] any time in the past 12 m [facility], were you homeless or living in a assisted (including now)? No 03/09/2025 CAGE ASSESSMENT Answer [...] drink first t ashanti in the morning (EYE-ACCOUNTING MANAGER) to steady your nerves or to get [...] Upcoming Encounters Date Type Department Care Team ([facility] st Contact Info) Description 03/23/2025 10:30 AM EDT Clinical Support Pav CC Head, Neck & Respiratory 800 [facility], 2nd [place] [phone] 03/23/2025 11:00 AM EDT Office Visit Pav CC Head, Neck & Respiratory 800 [facility], 2nd [place] [address] Maninder Zhang MD 800 [facility] Silvino [facility] [address] [place] [address] 03/23/2025 12:00 PM EDT Appointment PAV H Infusion 800 [place] [phone] documented as of this encounter Visit Diagnoses Not on filedocumented in this encounter Additional Health Concerns Assessment Noted Time A fall risk assessment has been complete d for the patient 03/02/2025 10:44 AM EDT A Body Mass Index follow-up plan has been documented for the patient 03/16/2025 4:08 PM EDT documented as of this encounter Care Teams Senior Java Architect Relationship Specialty Start Date End Date Constantine Stiles APRN [address] [place], [place] [phone] PCP - General 01/21/23 Farhat Gómez MD 800 [facility] [address] [place] [address] Consulting Physician Radiation Oncology 2/12/25 documented as of this encounter
--- OUTSIDE RECORDS SUMMARY | 2025-03-19 18:38 | XMS_ITS | Encounter Summary ---
Author Organization Healthcare Address [address] [place] [address] Care Team Providers Care Social Science Research Assistant Name Role Phone Constantine Stiles APRN Primary Care Provider [phone] Farhat Gómez MD Unavailable Encounter Details Date Type Department Care Team (Late st Contact Info) Description 03/08/2025 Orders Only External Location [address] [place] [address] Provider, External Social History Tobacco Use Types [...] any time in the past 12 m [facility], were you homeless or living [...] drink first t ashanti in the morning (EYE-UI ARCHITECT) to steady your nerves or to get [...] Upcoming Encounters Date Type Department Care Team ([facility] st Contact Info) Description 03/23/2025 10:30 AM EDT Clinical Support Pav CC Head, Neck & Respiratory 800 [facility], 2nd [place] [address] 03/23/2025 11:00 AM EDT Office Visit Pav CC Head, Neck & Respiratory 800 [facility], [address] [place] [address] Maninder Zhang MD 800 [facility] [address] [place] [address] 03/23/2025 12:00 PM EDT Appointment PAV H Infusion 800 [place] [address] documented as of this encounter Procedures Procedure [...] documented as of this encounter Care Teams Social Science Research Assistant Relationship Specialty Start Date End Date Constantine Stiles APRN [address] [place] [address] PCP - General 01/21/23 Farhat Gómez MD [address] [place] [address] Consulting Physician Radiation Oncology 10/27/24 documented as of this encounter
--- OUTSIDE RECORDS SUMMARY | 2025-03-19 18:38 | XMS_ITS | Encounter Summary ---
Author Organization Healthcare Address [address] [place] [address] Care Team Providers Care Decator Operator Name Role Phone Constantine Stiles APRN Primary Care Provider [phone] Farhat Gómez MD Unavailable Encounter Details Date Type Department Care Team (Late st Contact Info) Description 03/08/2025 Orders Only External Location 800 [place] [address] Provider, External Social History Tobacco Use Types [...] any time in the past 12 m [facility], were you homeless or living in a [...] drink first t ashanti in the morning (EYE-NUCLEAR EQUIPMENT TEST ENGINEER) to steady your nerves or to [...] Upcoming Encounters Date Type Department Care Team ([facility] st Contact Info) Description 03/23/2025 10:30 AM EDT Clinical Support Pav CC Head, Neck & Respiratory 800 [facility], 2nd [place] [address] 03/23/2025 11:00 AM EDT Office Visit Pav CC Head, Neck & Respiratory 800 [facility], 2nd [place] [address] Maninder Zhang MD 800 [facility] Shannan Silvino [facility] [address] [place] [address] 03/23/2025 12:00 PM EDT Appointment PAV H Infusion 800 [place] [address] documented as of this encounter Procedures Procedure [...] documented as of this encounter Care Teams Decator Operator Relationship Specialty Start Date End Date Constantine Stiles APRN [address] [place] [address] PCP - General 01/21/23 Farhat Gómez MD [address] [place] [address] Consulting Physician Radiation Oncology 10/27/24 documented as of this encounter
--- OUTSIDE RECORDS SUMMARY | 2025-03-19 18:38 | XMS_ITS ---
Author Organization [facility] Address [address] [place] [address] Care Team Providers Care Clinical Program Coordinator Name Role Phone Constantine Stiles APRN Primary Care Provider [phone] Farhat Gómez MD Unavailable Alanis Lebron LPN Unavailable Unavailabl e Transitional Care Management Status:Active (Active) Start date:03/17/2025 Enrollment date:03/17/2025 Enrollment reason:Identified using hospital discharge data Overview This episode type is for outpatient care managers enrolling patients in the [facility] Transitional Care Management program. Case Team Name Relationship Phone Alanis Lebron LPN(Responsible Staff) TCM Nurs e Continued Care and Services Coordination
--- OUTSIDE RECORDS SUMMARY | 2025-03-19 18:38 | XMS_ITS | Encounter Summary ---
Author Organization Healthcare Address [address] [place] [address] Care Team Providers Care Flower Maker Name Role Phone Constantine Stiles APRN Primary Care Provider [phone] Farhat Gómez MD Unavailable Encounter Details Date [...] any time in the past 12 m [facility], were you homeless or living [...] drink first t ashanti in the morning (EYE-CAKE CUTTER MACHINE) to steady your nerves or to get [...] Pav CC Head, Neck & Respiratory 800 [facility], 2nd [place] [address] 03/23/2025 11:00 AM EDT Office Visit Pav CC Head, Neck & Respiratory 800 [facility], 2nd [place] [phone] Maninder Zhang MD 800 [facility] Silvino [facility] [address] [place] [address] 03/23/2025 12:00 PM EDT Appointment PAV H Infusion 800 [place] [phone] documented as of this encounter Visit Diagnoses Not on filedocumented in this encounter Additional Health Concerns Assessment Noted Time A fall risk assessment has been complete d for the patient 03/02/2025 10:44 AM EDT A Body Mass Index follow-up plan has been documented for the patient 03/16/2025 4:08 PM EDT documented as of this encounter Care Teams Flower Maker Relationship Specialty Start Date End Date Constantine Stiles APRN [address] [place] [address] PCP - General 01/21/23 Farhat Gómez MD 800 [facility] [address] [place] [phone] Consulting Physician Radiation Oncology 10/27/24 documented as of this encounter
--- OUTSIDE RECORDS SUMMARY | 2025-03-19 18:38 | XMS_ITS | Encounter Summary ---
Author Organization Healthcare Address [address] [place] [address] Care Team Providers Care Back Gray Cloth Washer Name Role Phone Constantine Stiles APRN Primary Care Provider [phone] Farhat Gómez MD Unavailable Encounter Details Date Type Department Care Team (Late st Contact Info) Description 03/08/2025 Orders Only External Location 800 [place] [address] Provider, External Social History Tobacco Use Types [...] any time in the past 12 m [facility], were you homeless or [...] drink first t ashanti in the morning (EYE-AUTOMOTIVE GLASS TECHNICIAN) to steady your nerves or to get [...] [facility] st Contact Info[facility] Description 03/23/2025 10:30 AM EDT Clinical Support Pav CC Head, Neck & Respiratory 800 [facility], 2nd [place] [address] 03/23/2025 11:00 AM EDT Office Visit Pav CC Head, Neck & Respiratory 800 [facility], 2nd [place] [address] Maninder Zhang MD 800 [facility] Shannan Silvino [facility] [address] [place] [address] 03/23/2025 12:00 PM EDT Appointment PAV H Infusion 800 [place] [address] documented as of this encounter Procedures Procedure [...] as of this encounter Care Teams Back Gray Cloth Washer Relationship Specialty Start Date End Date Constantine Stiles APRN [address] [place] [address] PCP - General 01/21/23 Farhat Gómez MD [address] [place] [address] Consulting Physician Radiation Oncology 10/27/24 documented as of this encounter
--- OUTSIDE RECORDS SUMMARY | 2025-03-19 18:38 | XMS_ITS | Referral Summary ---
Author Organization [employer] ([place], [place], [place], [place]) Address [address] [place] [address] Care Team Providers Care Slider Assembler Name Role Phone Unavailable Primary Care Provider [...] Date Doug rded Speak language other than Panamanian at home Not on file 01/19/2024 Want [...]
--- OUTSIDE RECORDS SUMMARY | 2025-03-19 18:38 | XMS_ITS | Encounter Summary ---
Author Organization Healthcare Address [address] [place] [address] Care Team Providers Care Denial Management Representative Name Role Phone Constantine Stiles APRN Primary Care Provider [phone] Farhat Gómez MD Unavailable Encounter Details Date [...] any time in the past 12 m [facility], were you homeless or living in a halfway (including now)? No 03/09/2025 CAGE ASSESSMENT Answer [...] drink first t ashanti in the morning (EYE-COOKER SODA) to steady your nerves or to get [...] & Respiratory [address] , [address] [place] [address] 03/23/2025 11:00 AM EDT Office Visit Pav CC Head, Neck & Respiratory [address] , 2nd [place] [address] Maninder Zhang MD [address] Silvino dg [address] [place] [address] 03/23/2025 12:00 PM EDT Appointment PAV H Infusion [address] [place] [phone] documented as of this encounter Visit Diagnoses Not on filedocumented in this encounter Additional Health Concerns Assessment Noted Time A fall risk assessment has been complete d for the patient 03/02/2025 10:44 AM EDT A Body Mass Index follow-up plan has been documented for the patient 03/16/2025 4:08 PM EDT documented as of this encounter Care Teams Denial Management Representative Relationship Specialty Start Date End Date Constantine Stiles APRN [address] [place] [address] PCP - General 01/21/23 Farhat Gómez MD [address] [place] [address] Consulting Physician Radiation Oncology 10/27/24 documented as of this encounter
--- OUTSIDE RECORDS SUMMARY | 2025-03-19 18:39 | XMS_ITS | Encounter Summary ---
Author Organization [facility] Address [address] [place] [address] Care Team Providers Care X Ray Technician Name Role Phone Constantine Stiles APRN Primary Care Provider +[phone] Farhat Gómez MD Unavailable Encounter Details Date Type Department Care Team ([facility] Contact Info) Description 02/09/2025 Telephone Pav CC Head, Neck & Respiratory [address], [address] [place] [phone] Tiffany Rosario RN Social History Tobacco Use [...] Pav CC Head, Neck & Respiratory 800 [facility], 2nd [place] [address] 03/23/2025 11:00 AM EDT Office Visit Pav CC Head, Neck & Respiratory 800 [facility], 2nd [place] [address] Maninder Zhang MD 800 [facility] Shannan Dubois [facility] [address] [place] [address] 03/23/2025 12:00 PM EDT Appointment PAV H Infusion 800 [place] [phone] documented as of this encounter Visit Diagnoses Not on filedocumented in this encounter Additional Health Concerns Assessment Noted Time A fall risk assessment has been complete d for the patient 02/09/2025 1:33 PM EDT A Body Mass Index follow-up plan has been documented for the patient 01/19/2025 4:11 PM EDT documented as of this encounter Care Teams X Ray Technician Relationship Specialty Start Date End Date Constantine Stiles APRN [address] [place] [address] PCP - General 01/21/23 Farhat Gómez MD 800 [facility] [address] [place] [address] Consulting Physician Radiation Oncology 10/27/24 documented as of this encounter
--- OUTSIDE RECORDS SUMMARY | 2025-03-19 18:39 | XMS_ITS | Clinical Summary ---
Author Organization [employer] ([place], [place], [place], [place]) Address [address] [place] [address] Care Team Providers Care Running Rigger Name Role Phone Unavailable Primary Care Provider [...] Date Doug rded Speak language other than [place] Citizen at home Not on file 01/19/2024 Want [...]
--- OUTSIDE RECORDS SUMMARY | 2025-03-19 18:39 | XMS_ITS | Encounter Summary ---
Author Organization Healthcare Address [address] [place] [address] Care Team Providers Care Electronics Maintenance Technician Name Role Phone Constantine Stiles APRN Primary Care Provider +1 [phone] Farhat Gómez MD Unavailable Encounter Details Date Type Department Care Team (Late st Contact Info) Description 02/09/2025 Orders Only Pav CC Head, Neck & Respiratory [address] , [address] [place] [phone] Maninder Zhang MD 800 [facility] [address] [place] [address] Malignant neoplasm of upper lobe [...] Indicated 02/09/2025 11:17 AM EDT [facility], [place] R * Question Answer Date of Assessment [...] & Respiratory [address] , [address] [place] [address] 03/23/2025 11:00 AM EDT Office Visit Pav CC Head, Neck & Respiratory [address] , [address] [place] [address] Maninder Zhang MD [address] Silvino [facility] [address] [place] [address] 03/23/2025 12:00 PM EDT Appointment PAV H Infusion [address] [place] [address] Scheduled Orders Name Type Priority Associated Diagnoses [...] - 4.20 uIU/mL 03/02/2025 9:56 AM EDT [facility] Blood Venous blood specimen / Unknown Venipuncture / Unknown 03/02/2025 9:07 AM EDT 03/02/2025 9:20 AM EDT Maninder Zhang MD LAB BLOOD ORDERABLES Final Resul t Performing Organization Address City/[facility]/ZIP Co de Phone Number [facility] [address] [place] [address] * Magnesium (03/02/2025 9:07 AM EDT) Magnesium, Plasma 1.9 1.9 - 2.4 mg/dL 03/02/2025 9:56 AM EDT [facility] Blood Venous blood specimen / Unknown Venipuncture / Unknown 03/02/2025 9:07 AM EDT 03/02/2025 9:20 AM EDT Maninder Zhang MD LAB BLOOD ORDERABLES Final Resul t Performing Organization Address [facility] Co de Phone Number [facility] [address] [place] [address] * (ABNORMAL) Comprehensive metabolic panel (03/02/2025 9:07 AM EDT) Glucose, Plasma 232(H) 74 - 99 mg/dL 03/02/2025 9:55 AM EDT [facility] BUN, Plasma 7(L) 8 - 23 mg/dL 03/02/2025 9:55 AM EDT [facility] Creatinine, Plasma 0.76 0.70 - 1.20 mg/dL 03/02/2025 9:55 AM EDT [facility] BUN/Creatinine Ratio 9 03/02/2025 9:55 AM EDT [facility] Sodium, Plasma 137 136 - 145 mmol/L 03/02/2025 9:55 AM EDT [facility] Potassium, Plasma 4.6 3.6 - 4.9 mmol/L 03/02/2025 9:55 AM EDT [facility] Chloride, Plasma 100 97 - 107 mmol/L 03/02/2025 9:55 AM EDT [facility] CO2, Plasma 23 22 - 29 mmol/L 03/02/2025 9:55 AM EDT [facility] Anion Gap 14 6 - 16 mmol/L 03/02/2025 9:55 AM EDT [facility] Total Calcium, Plasma 9.8 8.9 - 10.2 mg/dL 03/02/2025 9:55 AM EDT [facility] Total Protein 7.4 6.3 - 7.9 g/dL 03/02/2025 9:55 AM EDT [facility] Albumin, Plasma 3.3(L) 3.5 - 5.2 g/dL 03/02/2025 9:55 AM EDT [facility] AST, Plasma 25 10 - 50 U/L 03/02/2025 9:55 AM EDT [facility] ALT, Plasma 43 10 - 50 U/L 03/02/2025 9:55 AM EDT [facility] Alkaline Phosphatase, Plasma 205(H) 40 - 115 U/L 03/02/2025 9:55 AM EDT [facility] Total Bilirubin, Plasma 0.5 0.2 - 1.1 mg/dL 03/02/2025 9:55 AM EDT [facility] eGFRcr 102.3 mL/min/1.7 3m*2 03/02/2025 9:55 AM EDT [facility] Comment:Reported eGFRcr in m L/min/1.73m2 is based the CKD-EPI 2020 equation that does not use a race coefficient. Blood Venous blood specimen / Unknown Venipuncture / Unknown 03/02/2025 9:07 AM EDT 03/02/2025 9:20 AM EDT us Maninder Zhang MD LAB BLOOD ORDERABLES Final Resul t [facility] [address] [place] [address] * (ABNORMAL) CBC and differential (03/02/2025 9:07 AM EDT) WBC Count 19.59(H) 3.70 - 10.30 10*3/uL LAB HEMATOLOGY METHOD 03/02/2025 11:36 AM EDT [facility] RBC Count 2.43(L) 4.60 - 6.10 10*6/uL LAB HEMATOLOGY METHOD 03/02/2025 11:36 AM EDT [facility] HGB 7.1(L) 13.7 - 17.5 g/dL LAB HEMATOLOGY METHOD 03/02/2025 11:36 AM EDT [facility] HCT 24.5(L) 40.0 - 51.0 % LAB HEMATOLOGY METHOD 03/02/2025 11:36 AM EDT [facility] Platelet Count 244 155 - 369 10*3/uL LAB HEMATOLOGY METHOD 03/02/2025 11:36 AM EDT [facility] MCV 101(H) 79 - 98 fL LAB HEMATOLOGY METHOD 03/02/2025 11:36 AM EDT [facility] MCH 29.2 26.0 - 32.0 pg LAB HEMATOLOGY METHOD 03/02/2025 11:36 AM EDT [facility] MCHC 29.0(L) 30.7 - 35.5 g/dL LAB HEMATOLOGY METHOD 03/02/2025 11:36 AM EDT [facility] RDW 17.0(H) 11.5 - 14.5 % LAB HEMATOLOGY METHOD 03/02/2025 11:36 AM EDT [facility] MPV 10.2 8.8 - 12.5 fL LAB HEMATOLOGY METHOD 03/02/2025 11:36 AM EDT [facility] nRBC 0.0 <=0.0 per 100 WBCs LAB HEMATOLOGY METHOD 03/02/2025 11:36 AM EDT [facility] Differential Type Automated LAB HEMATOLOGY METHOD 03/02/2025 11:36 AM EDT [facility] Neutrophils % 89 % LAB HEMATOLOGY METHOD 03/02/2025 11:36 AM EDT [facility] Lymphocytes % 3 % LAB HEMATOLOGY METHOD 03/02/2025 11:36 AM EDT [facility] Monocytes % 5 % LAB HEMATOLOGY METHOD 03/02/2025 11:36 AM EDT [facility] Eosinophils % 0 % LAB HEMATOLOGY METHOD 03/02/2025 11:36 AM EDT [facility] Basophils % 0 % LAB HEMATOLOGY METHOD 03/02/2025 11:36 AM EDT [facility] Immature Granulocytes % 3 % LAB HEMATOLOGY METHOD 03/02/2025 11:36 AM EDT [facility] Neutrophils Absolute 17.37(H) 1.60 - 6.10 10*3/uL LAB HEMATOLOGY METHOD 03/02/2025 11:36 AM EDT [facility] Lymphocytes Absolute 0.52(L) 1.20 - 3.90 10*3/uL LAB HEMATOLOGY METHOD 03/02/2025 11:36 AM EDT [facility] Monocytes Absolute 0.99(H) 0.30 - 0.90 10*3/uL LAB HEMATOLOGY METHOD 03/02/2025 11:36 AM EDT [facility] Eosinophils Absolute 0.00 0.00 - 0.50 10*3/uL LAB HEMATOLOGY METHOD 03/02/2025 11:36 AM EDT [facility] Basophils Absolute 0.04 0.00 - 0.10 10*3/uL LAB HEMATOLOGY METHOD 03/02/2025 11:36 AM EDT [facility] Immature Granulocytes Absolute 0.67(H) 0.00 - 0.06 10*3/uL LAB HEMATOLOGY METHOD 03/02/2025 11:36 AM EDT [facility] Blood Venous blood specimen / Unknown Venipuncture / Unknown 03/02/2025 9:07 AM EDT 03/02/2025 9:21 AM EDT Narrative [facility] - 03/02/2025 11:36 AM EDT Therapeutic decision making should be based on absolute values, rather than percentages. Maninder Zhang MD LAB BLOOD ORDERABLES Final Resul t [facility] [address] [place] [address] documented in this encounter Visit Diagnoses Diagnosis [...] documented as of this encounter Care Teams Electronics Maintenance Technician Relationship Specialty Start Date End Date Constantine Stiles APRN [address] [place] [address] PCP - General 01/21/23 Farhat Gómez MD [address] [address] Consulting Physician Radiation Oncology 10/27/24 documented as of this encounter
--- OUTSIDE RECORDS SUMMARY | 2025-03-19 18:39 | XMS_ITS | Encounter Summary ---
Author Organization Healthcare Address [address] [place] [address] Care Team Providers Care Control Director Name Role Phone Constantine Stiles APRN Primary Care Provider +1 [phone] Farhat Gómez MD Unavailable Encounter Details Date [...] Pav CC Head, Neck & Respiratory 800 [facility], [address]nd [place] [address] 03/23/2025 11:00 AM EDT Office Visit Pav CC Head, Neck & Respiratory 800 [facility], [address]nd [place] [address] Maninder Zhang MD 800 [facility] [address] [place] [address] 03/23/2025 12:00 PM EDT Appointment PAV H Infusion 800 [place] [phone] documented as of this encounter Visit Diagnoses Not on filedocumented in this encounter Additional Health Concerns Assessment Noted Time A fall risk assessment has been complete d for the patient 03/02/2025 10:44 AM EDT A Body Mass Index follow-up plan has been documented for the patient 03/02/2025 6:30 PM EDT documented as of this encounter Care Teams Control Director Relationship Specialty Start Date End Date Constantine Stiles, TOWER OPERATOR [address] [place] [address] PCP - General 01/21/23 Farhat Gómez MD 800 [facility] [address] [place] [address] Consulting Physician Radiation Oncology 10/27/24 documented as of this encounter
--- OUTSIDE RECORDS SUMMARY | 2025-03-19 18:39 | XMS_ITS | Encounter Summary ---
Author Organization Healthcare Address [address] [place] [address] Care Team Providers Care Carbide Powder Processor Name Role Phone Constantine Stiles APRN Primary Care Provider +1 [phone] Farhat Gómez MD Unavailable Encounter Details Date Type Department Care Team (Late Contact Info) Description 02/15/2025 Orders Only External Location [address] [place] [phone] Provider, External Social History Tobacco Use Types [...] Head, Neck & Respiratory 800 [facility], 2nd [place] [address] 03/23/2025 11:00 AM EDT Office Visit Pav CC Head, Neck & Respiratory 800 [facility], 2nd [place] [address] Maninder Zhang MD 800 [facility] Shannan Dubois [facility] [address] [place] [address] 03/23/2025 12:00 PM EDT Appointment PAV H Infusion [address] [place] [address] documented as of this encounter Procedures Procedure [...] documented as of this encounter Care Teams Carbide Powder Processor Relationship Specialty Start Date End Date Constantine Stiles APRN [address] [place] [address] PCP - General 01/21/23 Farhat Gómez MD [address] [place] [address] Consulting Physician Radiation Oncology 10/27/24 documented as of this encounter
--- OUTSIDE RECORDS SUMMARY | 2025-03-19 18:39 | XMS_ITS | Encounter Summary ---
Author Organization Healthcare Address [address] [place] [address] Care Team Providers Care Front End Loader Operator Name Role Phone Constantine Stiles APRN Primary Care Provider [phone] Farhat Gómez MD Unavailable Encounter Details Date [...] [facility] Head, Neck & Respiratory [address] [facility], [address] [place] [address] 03/23/2025 11:00 AM EDT Office Visit Pav [facility] Head[facility] Neck & Respiratory [address] [facility], [address] [place] [address] Maninder Zhang MD [address] [facility] [address] [place] [address] 03/23/2025 12:00 PM EDT Appointment PAV H Infusion [address] [place] [address] documented as of this encounter Visit Diagnoses Not on filedocumented in this encounter Additional Health Concerns Assessment Noted Time A fall risk assessment has been complete d for the patient 01/19/2025 9:13 AM EDT A Body Mass Index follow-up plan has been documented for the patient 01/19/2025 4:11 PM EDT documented as of this encounter Care Teams Front End Loader Operator Relationship Specialty Start Date End Date Constantine Stiles APRN [address] [place] [address] PCP - General 01/21/23 Farhat Gómez MD [address] [facility] [address] [place] [address] Consulting Physician Radiation Oncology 10/27/24 documented as of this encounter
--- OUTSIDE RECORDS SUMMARY | 2025-03-19 18:39 | XMS_ITS | Encounter Summary ---
Author Organization Healthcare Address [address] [place] [address] Care Team Providers Care Medical Lab Assistant Name Role Phone Darrylbobby Constantine Ashford APRN Primary Care Provider [phone] Farhat Gómez MD Unavailable Reason for Visit * Reason Comments Med Refill Encounter Details Date Type Department Care Team (Late Contact Info) Description 01/26/2025 Refill [facility] Radiation [address] [place] [address] Farhat Gómez MD [address] [place] [address] Social History Tobacco Use Types [...] & Respiratory [address], [address] [place] [address] 03/23/2025 11:00 AM EDT Office Visit Pav CC Head, Neck & Respiratory 800 [facility], [address]nd [place] [address] Maninder Zhang MD 800 [facility] Shannan Dubois [facility] [address] [place] [address] 03/23/2025 12:00 PM EDT Appointment [facility] H Infusion [address] [place] [address] documented as of this encounter Visit Diagnoses Not on filedocumented in this encounter Additional Health Concerns Assessment Noted Time A fall risk assessment has been complete d for the patient 01/19/2025 9:13 AM EDT A Body Mass Index follow-up plan has been documented for the patient 01/19/2025 4:11 PM EDT documented as of this encounter Care Teams Medical Lab Assistant Relationship Specialty Start Date End Date Constantine Stiles APRN [address] [place] [address] PCP - General 01/21/23 Farhat Gómez MD 800 [facility] [address] [place] [address] Consulting Physician Radiation Oncology 10/27/24 documented as of this encounter
--- OUTSIDE RECORDS SUMMARY | 2025-03-19 18:39 | XMS_ITS | Encounter Summary ---
Author Organization [facility] Address [address] [place] [address] Care Team Providers Care Shelter Case Manager Name Role Phone Constantine Stiles APRN Primary Care Provider [phone] Farhat Gómez MD Unavailable Reason for Referral * Imaging (Routine) - Authorized Specialty Diagnoses / Procedures Referred By Contac t Referred To Contact Radiology Diagnoses 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 (CMS/HCC) Procedures CT Chest w IV Contrast Maninder Zhang MD [address] Whitney [place]rickson [address] [address] Phone: tel: fax: Referral ID Status Reason Start Date Expiration Date V isits Requested Visits Authorized [id number] Authorized 02/10/2025 08/12/2026 1 1 * Imaging (Routine) - Authorized Specialty Diagnoses / Procedures Referred By Contac t Referred To Contact Radiology Diagnoses 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 (CMS/HCC) Procedures CT Abdomen Pelvis w IV Contrast Maninder Zhang MD [address] [place] [address] [address] Phone: tel: fax: Referral ID Status Reason Start Date Expiration Date V isits Requested Visits Authorized [id number] Authorized 02/10/2025 08/12/2026 1 1 Encounter Details Date Type Department Care Team (Late Contact Info) Description 02/10/2025 Orders Only Pav [facility] Head, Neck & Respiratory [address] [address] Tiffany Rosario, RN Squamous cell carcinoma of [...] [facility] Head, Neck & Respiratory [address] [address] 03/23/2025 11:00 AM EDT Office Visit [facility] Head[facility] Neck & Respiratory [address] [address] Maninder Zhang MD 800 [facility] [address] [place] [address] 03/23/2025 12:00 PM EDT Appointment P[facility] H Infusion [address] [place] [address] Scheduled Orders Name Type Priority Associated Diagnoses [...] documented as of this encounter Care Teams Shelter Case Manager Relationship Specialty Start Date End Date Constantine Stiles APRN [address] [place] [address] PCP - General 01/21/23 Farhat Gómez MD [address] [place], [place] [address] [place] [address] Consulting Physician Radiation Oncology 10/27/24 documented as of this encounter
--- OUTSIDE RECORDS SUMMARY | 2025-03-19 18:39 | XMS_ITS ---
Author Organization [facility] Address [address] [place] [address] Care Team Providers Care Field Horticultural Specialty Grower Name Role Phone Constantine Stiles APRN Primary Care Provider [phone] Farhat Gómez MD Unavailable Alanis Lebron LPN [...]
--- OUTSIDE RECORDS SUMMARY | 2025-03-19 18:39 | XMS_ITS | Encounter Summary ---
Author Organization Healthcare Address [address] [place] [address] Care Team Providers Care Straight Cutter Name Role Phone Constantine Stiles APRN Primary Care Provider [phone] Farhat Gómez MD Unavailable Encounter Details Date Type Department Care Team (Late Contact Info) Description 02/15/2025 Orders Only External Location [address] [place] [phone] Provider, External Social History Tobacco Use Types [...] Head, Neck & Respiratory 800 [facility], [address]nd [place] [address] 03/23/2025 11:00 AM EDT Office Visit Pav CC Head, Neck & Respiratory 800 [facility], [address]nd [place] [address] Maninder Zhang MD 800 [facility] Shannan Dubois [facility] [address] [place] [address] 03/23/2025 12:00 PM EDT Appointment P[facility] H Infusion [address] [place] [address] documented as of this encounter Procedures Procedure [...] documented as of this encounter Care Teams Straight Cutter Relationship Specialty Start Date End Date Constantine Stiles APRN [address] [place] [address] PCP - General 01/21/23 Farhat Gómez MD [address] [place] [address] Consulting Physician Radiation Oncology 10/27/24 documented as of this encounter
--- OUTSIDE RECORDS SUMMARY | 2025-03-19 18:39 | XMS_ITS | Encounter Summary ---
Author Organization Healthcare Address [address] [place] [address] Care Team Providers Care Talent Director Name Role Phone Constantine Stiles APRN Primary Care Provider [phone] Farhat Gómez MD Unavailable Encounter Details Date [...] Pav [facility] Head, Neck & Respiratory 800 [facility], [address]nd [place] [address] 03/23/2025 11:00 AM EDT Office Visit Pav CC Head, Neck & Respiratory 800 [facility], [address]nd [place] [address] Maninder Zhang MD 800 [facility] Shannan Dubois [facility] [address] [place] [address] 03/23/2025 12:00 PM EDT Appointment P[facility] H Infusion [address] [place] [address] documented as of this encounter Visit Diagnoses Not on filedocumented in this encounter Additional Health Concerns Assessment Noted Time A fall risk assessment has been complete d for the patient 02/09/2025 1:33 PM EDT A Body Mass Index follow-up plan has been documented for the patient 01/19/2025 4:11 PM EDT documented as of this encounter Care Teams Talent Director Relationship Specialty Start Date End Date Constantine Stiles APRN [address] [place] [address] PCP - General 01/21/23 Farhat Gómez MD 800 [facility] [address] [place] [address] Consulting Physician Radiation Oncology 10/27/24 documented as of this encounter
--- OUTSIDE RECORDS SUMMARY | 2025-03-19 18:39 | XMS_ITS | Encounter Summary ---
Author Organization Healthcare Address [address] [place] [address] Care Team Providers Care Stapler Hand Name Role Phone Constantine Stiles APRN Primary Care Provider [phone] Lars Dalton MD Unavailable Farhat Gómez MD Unavailable Alanis Lebron LPN Unavailable Unavailabl e Encounter Details Date Type Department Care Team (Late Contact Info) Description 06/28/2024 Orders Only External Location [address] [place] [address] Provider, External Social History Tobacco Use Types [...] Pav CC Head, Neck & Respiratory 800 [facility], [address]nd [place] [address] 03/23/2025 11:00 AM EDT Office Visit Pav CC Head, Neck & Respiratory [address] [facility], [address]nd [place] [address] Maninder Zhang MD [address] [place] [address] 03/23/2025 12:00 PM EDT Appointment P[facility] H Infusion [address] [place] [address] documented as of this encounter Procedures Procedure [...] documented as of this encounter Care Teams Stapler Hand Relationship Specialty Start Date End Date Constantine Stiles APRN [address] [place] [address] PCP - General 01/21/23 Lars Dalton MD [address] [place] [address] Consulting Physician Radiation Oncology 03/08/24 Farhat Gómez MD 800 [facility] [address] [place] [address] Consulting Physician Radiation Oncology 10/27/24 Alanis Lebron LPN [facility] TCM Nurse 03/17/25 documented as of this encounter
--- NOTE | 2025-03-19 18:56 | ED_ITS ---
<Statement entered by Olayinka Mckinley MD - 03/19/25 23:33> I was consulted by the DEANNA, and we discussed the complexity of the problems being addressed. I approved the treatment and management plan for this patient's care in the emergency department, thus performing a substantive portion of the medical decision making. Olayinka Mckinley MD, LELO, FACEP Discharge Plan Disposition Patient Disposition: Admitted Clinical Impressions Clinical Impression: Metastatic primary lung cancer, Cancer, metastatic to bone Discharge ED Provider: Olayinka Mckinley General Adult HPI General Chief complaint: Back Pain/Injury Stated complaint: Right hip pain Time Seen by Provider: 03/19/25 18:15 Mode of Arrival: Wheelchair Source of Information: Patient Description of Symptoms (Recalled from ER Triage Doc. by RN): patient states he has had right sided low back pain for 3 days that is sharp and constant. 8/10. was seen here lastnight and nothing was found History of Present Illness HPI narrative: 59-year-old male presents to the ED for right-sided low back pain and hip pain for the last 3 days. It is sharp and constant. Admits that it is 8 out of 10 pain[address] He had a CT last night confirming lytic lesions in his T12 and iliac spine. He has pneumonia as well. This is improving from the pneumonia he had at . He does have a cough. He is wearing oxygen. He came in for pain control. Patient had a an 18.4 white count and a H&H of 7.8 and 24.8 last night. He again complains of pain. He has been doing chemo for the past 2 months. He has recently quit chemo and has an appointment with hospice tomorrow for evaluation. He just cannot stand the pain. No other associated signs or symptoms at this time. Sister is at bedside. Related Data Home Medications ?Medication ?Instructions ?Recorded ?Confirmed buprenorphine 8 mg-naloxone 2 mg 2 tab sublingual KEELY Y . 04/08/22 02/11/25 sublingual tablet olanzapine 5 mg tablet 5 mg PO 01/12/25 02/11/25 cyclobenzaprine 10 mg tablet 10 mg PO BID 01/24/25 Previous Rx's ?Medication ?Instructions ?Recorded ipratropium 0.5 mg-albuterol 3 mg 3 ml inhalation QID PRN shortness 01/30/24 (2.5 mg base)/3 mL nebulization of breath or wheezing 90 days #270 soln mL cariprazine 1.5 mg capsule 1.5 mg PO DAILY #90 caps (Vraylar) budesonide 160 mcg-glycopyr 9 2 inh inhalation BID 90 days #10.7 07/01/24 mcg-formot 4.8 mcg/actuation HFA grams inhaler (Breztri Aerosphere) nicotine (polacrilex) 2 mg gum 2 mg buccal Q2H PRN edi otine 07/01/24 cravings #396 ea omeprazole 40 mg capsule,delayed 40 mg PO DAILY #90 ca ps 08/04/24 release docusate sodium 100 mg capsule 100 mg PO DAILY #30 cap s 01/06/25 (Colace) polyethylene glycol 3350 17 17 g PO DAILY PRN constipa tion 4 01/06/25 gram/dose oral powder (Miralax) days #68 grams tamsulosin 0.4 mg capsule (Flomax) 0.4 mg PO DAILY #14 caps 01/06/25 gabapentin 800 mg tablet 800 mg PO TID #90 tabs 01/12 albuterol sulfate 90 mcg/actuation 2 inh inhalation QI D PRN shortness 01/25/25 aerosol inhaler of breath or wheezing 90 day s #8.5 grams prednisone 20 mg tablet 20 mg PO BID 5 days #10 tabs 01/25/25 celecoxib 100 mg capsule (Celebrex) 100 mg PO DAILY #6 0 caps 02/11/25 polyethylene glycol 3350 17 17 g PO DAILY PRN constipa tion 02/15/25 gram/dose oral powder (Miralax) #510 grams sennosides 8.6 mg tablet (Senna 8.6 mg PO DAILY PRN co nstipation 02/15/25 Lax) #30 tabs Allergies Allergy/AdvReac Type Severity Reaction Status Date / Time No Known Allergies Allergy Verified 02/11/25 10:22 [facility] Disclaimer: The information contained in this section may have been updated after the patient was seen, as this information can be updated by other users. Medical History Lung cancer Multiple lung nodules on CT Solid nodule of lung greater than 8 mm in diameter Dyspnea on exertion Encounter for screening for malignant neoplasm of lung Smoking greater than 30 pack years COPD mixed type DDD (degenerative disc disease), lumbar Surgical History History of lung biopsy History of back surgery No history of previous surgery Family History Other No significant family history Social History Smoking Status: Never smoker smoking status stop date: November 2023 alcohol intake: never substance use type: former substance user current occupational status: employed Travel in the last 8 weeks?: None Have you lived/traveled outside US in past 30 days?: No Contact w/someone who lives/traveled outside US past 30 days?: No Exposure to someone with infectious disease in past 14 days?: No Do you have a fever (greater than 100.4 F or 38 C)?: No Have you tested positive for COVID-19?: No Exposed to someone with COVID-19 in past 14 days?: No Do you have a sore throat?: No Do you have a cough?: No Do you have any weakness?: No Do you have any diarrhea?: No Are you experiencing any unusual bleeding?: No Do you have any muscle aches/pain?: No Do you have any abdominal pain?: No Are you experiencing loss of taste or smell?: No Other Medical History Have you received the Flu Vaccine for this season: No Have you received the Pneumonia Vaccine: No ROS Obtained: Yes Systems reviewed as appropriate & no additional complaints except as documented Constitutional Constitutional: Reports as per HPI Physical Exam General General appearance: alert and in distress Head Head exam: normocephalic Eye Eye exam: Present PERRL and EOMI ENT ENT exam: Present normal oropharynx and mucous membranes moist Neck Neck exam: Present full ROM and trachea midline Respiratory Respiratory exam: Present other (Rhonchi throughout) Cardiovascular Cardiovascular exam: Present normal rhythm, tachycardia, normal heart sounds, +S1 and +S2 Extremities Exam Extremities exam: Present full ROM and normal capillary refill Neurological Exam Neurological exam: Present alert and oriented X3 Skin Skin exam: Present dry, intact and other (Pale) Medical Decision Making Medical Records Screening: Per USPSTF and CDC recommendations, given the prevalence of disease in our region, it is our hospital?s policy to screen for HIV and viral Hepatitis for all patients aged 18 and over and those with ongoing risk factors. Handy Inquiry Pt receiving controlled substance: Yes Handy was queried for this patient: Yes Risks and benefits of using a controlled substance: were discussed with pt by me Vital Signs: 03/19/25 18:21 03/19/25 19:30 03/19/25 19:38 Temperature 98.6 F 98.3 F Temperature Source Oral Oral Pulse Rate 94 H 96 H Pulse Rate [Right Radial] 106 H Respiratory Rate 18 16 Blood Pressure 95/72 L 101/69 L Blood Pressure [Right Arm] 117/73 Blood Pressure Mean 76 Blood Pressure Mean [Right Arm] 87 Blood Pressure Source Automatic Cuff Blood Pressure Source [Right Arm] Automatic Cuff Blood Pressure Position Supine Blood Pressure Position [Right Arm] Supine 02 Sat by Pulse Oximetry 95 98 Oxygen Delivery Method Nasal Cannula Nasal Cannula Oxygen Flow Rate (LPM) 3 3 03/19/25 19:45 03/19/25 20:00 Temperature 98.4 F Temperature Source Oral Pulse Rate 90 Pulse Rate [Right Radial] 92 H Respiratory Rate 17 Blood Pressure 98/71 L Blood Pressure [Right Arm] 98/71 L Blood Pressure Mean 78 Blood Pressure Mean [Right Arm] 80 Blood Pressure Source Blood Pressure Source [Right Arm] Automatic Cuff Blood Pressure Position Blood Pressure Position [Right Arm] 02 Sat by Pulse Oximetry 98 97 Oxygen Delivery Method Nasal Cannula Oxygen Flow Rate (LPM) 3 Orders (Tests/Meds): ED MEDICATIONS Generic Name Dose Route Start Last Admin Trade Name Freq PRN Reason Stop Dose Admin Docusate Sodium 100 mg 03/19/25 18:56 Docusate Sodium 100 Mg Capsule PO 04/19/25 08:59 DAILY PRN Constipation Hydromorphone HCl 1 mg 03/19/25 18:56 03/19/25 19:22 Hydromorphone 2mg/Ml Syringe IV 04/18/25 18:55 1 mg Q3HP PRN Administration Severe Pain (7-10) Zoledronic Acid 4 mg/ Sodium 105 mls @ 420 mls/hr 03/20/25 09:00 Chloride IV 03/20/25 09:01 ONCE ONE Nicotine 21 mg 03/19/25 18:56 Nicotine 21mg/24hr Patch TD 04/18/25 18:55 DAILYP PRN Nicotine Cravings Ondansetron HCl 4 mg 03/19/25 18:56 Ondansetron 4mg/2ml Vial IV 04/18/25 18:55 Q8HP PRN Nausea Oxycodone/Acetaminophen 1 each 03/19/25 18:56 Oxycodone 10mg W/Apap 325mg Tablet PO 04/18/25 18:55 Q6HP PRN Moderate to Severe Pain (4-10) Discontinued Medications Generic Name Dose Route Start Last Admin Trade Name Freq PRN Reason Stop Dose Admin Morphine Sulfate 4 mg 03/19/25 18:49 03/19/25 19:01 Morphine 4mg/Ml Syringe IV 03/19/25 18:50 4 mg ONCE ONE Administration Ondansetron HCl 4 mg 03/19/25 18:49 03/19/25 19:01 Ondansetron 4mg/2ml Vial IV 03/19/25 18:50 4 mg ONCE ONE Administration ORDERS Category Date Time Status Consult to Hospice [CONS] Routine Cons 03/20/25 08:00 Ordered Complete Blood Count Auto Diff [facility] 03/20/25 06:00 Ordered Comprehensive Metabolic Panel [facility] 03/20/25 06:00 Ordered Magnesium [facility] 03/20/25 06:00 Ordered Phosphorous [facility] 03/20/25 06:00 Ordered Medical Decision Narrative: patient is a 59-year-old male presenting to the emergency department for evaluation of pain from metastatic lytic lesions. Patient is hemodynamically s table and pale appearing upon arrival, afebrile. Differential diagnosis includes chronic pain, cancer pain. No workup needed as patient had complete workup about midnight last night. Reviewed CT scan where patient had metastatic lytic lesions on iliac crest and T12 spine. Discussed with Dr. Mckinley as well as patient and his sister. Discussed with patient and he agreed to come in for pain control until he is evaluated by hospice tomorrow. Talk to Dr. Hendrix who accepted patient to hospital for pain control. Patient stable Critical Care Critical Care Time Critical Care Time: No
[2025-03-19] MEDS: MORPHINE 4MG/ML SYRINGE 4 MG IV (19:01)
[2025-03-19] MEDS: ONDANSETRON 4MG/2ML VIAL 4 MG IV (19:01)
--- NOTE | 2025-03-19 19:01 | PC.NURSE ---
called house for bed
--- NOTE | 2025-03-19 19:14 | EXP.HP ---
History of Present Illness *Admission Date: 03/19/25 *Reason for visit:: back pain *History of present illness: Patient is a 59-year-old male with past medical history of lung cancer with metastasis COPD who presents to the hospital due to right-sided low back pain that is sharp, 8/10 intensity, started around 3 days ago and has been persistent. Patient has history of lung cancer with metastasis, CT of her spine did show lytic lesions in the iliac spine and T12, he was also diagnosed with pneumonia. According to patient his pain was uncontrolled so he decided to come to the hospital for pain control. Patient otherwise denied fevers. Patient is undergoing process of hospice evaluation. [facility] Disclaimer: The information contained in this section may have been updated after the patient was seen, as this information can be updated by other users. Medical History Cancer of kidney Lung cancer Multiple lung nodules on CT Solid nodule of lung greater than 8 mm in diameter Dyspnea on exertion Encounter for screening for malignant neoplasm of lung Smoking greater than 30 pack years COPD mixed type DDD (degenerative disc disease), lumbar Surgical History History of lung biopsy History of back surgery No history of previous surgery Family History Other Cancer No significant family history Social History (Updated 03/20/25 @ 02:58 by Dinora Bueno RN) Smoking Status: Former smoker tobacco type: cigarettes packs per day: 2 smoking status stop date: November 2023 alcohol intake: never substance use type: former substance user current occupational status: other Travel in the last 8 weeks?: None Have you lived/traveled outside [place] in past 30 days?: No Contact w/someone who lives/traveled outside [place] past 30 days?: No Exposure to someone with infectious disease in past 14 days?: No Do you have a fever (greater than 100.4 F or 38 C)?: No Have you tested positive for COVID-19?: No Exposed to someone with COVID-19 in past 14 days?: No Do you have a sore throat?: No Do you have a cough?: No Do you have any weakness?: No Do you have any diarrhea?: No Are you experiencing any unusual bleeding?: No Do you have any muscle aches/pain?: No Do you have any abdominal pain?: No Are you experiencing loss of taste or smell?: No Other Medical History Have you received the Flu Vaccine for this season: No Have you received the Pneumonia Vaccine: No Review of Systems Review of Systems Review of systems:: pertinent systems reviewed and negative unless documented below Meds Home Medications and Allergies Home Medications ?Medication ?Instructions ?Recorded ?Confirmed ?Type ipratropium 0.5 mg-albuterol 3 mg 3 ml inhalation QID PRN shortness 01/30/24 03/19/25 Rx (2.5 mg base)/3 mL nebulization of breath or wheezing 90 days #270 soln mL cariprazine 1.5 mg capsule 1.5 mg PO DAILY #90 caps 04/20/24 03/19/25 Rx (Vraylar) docusate sodium 100 mg capsule 100 mg PO DAILY #30 caps 01/06/25 03/19/25 Rx (Colace) tamsulosin 0.4 mg capsule (Flomax) 0.4 mg PO DAILY #14 caps 01/06/25 03/19/25 Rx gabapentin 800 mg tablet 800 mg PO TID #90 tabs 01/12/25 03/19/25 Rx olanzapine 5 mg tablet 2.5 mg PO HS 01/12/25 03/19/25 History cyclobenzaprine 10 mg tablet 7.5 mg PO BID 01/24/25 03/19/25 History albuterol sulfate 90 mcg/actuation 2 inh inhalation QID PRN shortness 01/25/25 03/19/25 Rx aerosol inhaler of breath or wheezing 90 days #8.5 grams polyethylene glycol 3350 17 17 g PO DAILY PRN constipation 02/15/25 03/19/25 Rx gram/dose oral powder (Miralax) #510 grams hydroxyzine pamoate 25 mg capsule 25 mg PO Q6HP PRN Anxiety 03/19/25 03/19/25 History mometasone-formoterol HFA 200 2 puff inhalation BID 03/19/25 03/19/25 History mcg-5 mcg/actuation aerosol inhaler (Dulera) oxycodone-acetaminophen 5 mg-325 5 - 325 tab PO Q8 PRN Pain 03/19/25 03/19/25 History mg tablet New Prescriptions to Start Prescriptions: Allergies Allergy/AdvReac Type Severity Reaction Status Date / Time No Known Allergies Allergy Verified 02/11/25 10:22 Exam Data for Last 24 hours Vital signs and Labs for Last 24 Hours: Temp Pulse Resp BP Pulse Ox O2 Del Method O2 Flow Rate 98.6 F 106 H 18 117/73 95 Nasal Cannula 3 03/19/25 18:21 03/19/25 18:21 03/19/25 18:21 03/19/25 18:21 03/19/25 18:21 03/19/25 18:21 03/19/25 18:21 I & O for Last 24 hours: Intake & Output 03/16/25 03/17/25 03/18/25 03/19/25 23:59 23:59 23:59 23:59 Weight 61.689 kg Constitutional Constitutional: no acute distress *Routine HEENT Exam Head: Present normocephalic Eye: Present EOMI and PERRL ENT: Present mucous membranes moist *Routine Neck Exam Neck: Present supple; Absent lymphadenopathy *Routine Respiratory Exam Respiratory: Present diminished air movement *Routine Cardiovascular Exam Cardiovascular: Present RRR *Routine Abdominal Exam Abdominal: Present soft and normoactive bowel sounds; Absent tenderness *Routine Rectal Exam Rectal:: deferred *Routine Genitalia Exam Genitalia:: deferred *Routine Extremities Exam Extremities: Absent cyanosis, clubbing or edema *Routine Skin Exam Skin: Present warm; Absent rash *Routine Neurological Exam Neurological: Present alert and oriented X3 Assessment and Plan *Assessment and plan (1) Cancer, metastatic to bone: Status: Acute Category: Medical Code(s): C79.51 - Secondary malignant neoplasm of bone (2) Metastatic primary lung cancer: Status: Acute Category: Medical Code(s): C34.90 - Malignant neoplasm of unspecified part of unspecified bronchus or lung (3) Symptomatic anemia: Status: Acute Category: Medical Code(s): D64.9 - Anemia, unspecified (4) Multifocal pneumonia: Status: Acute Category: Medical Code(s): J18.9 - Pneumonia, unspecified organism Plan Patient is a 59-year-old male with past medical history of lung cancer with metastasis COPD who presents to the hospital due to right-sided low back pain that is sharp, 8/10 intensity, started around 3 days ago and has been persistent. Patient has history of lung cancer with metastasis, CT of her spine did show lytic lesions in the iliac spine and T12, he was also diagnosed with pneumonia. According to patient his pain was uncontrolled so he decided to come to the hospital for pain control. Patient otherwise denied fevers. Patient is undergoing process of hospice evaluation. Assessment and plan Intractable back pain Lung cancer with metastasis End-stage COPD Patient is on pain regimen with Neurontin 3 times daily, Dilaudid 1 Mg every 3 hours, oxycodone p.o. every 6 hours as needed Flexeril 7.5 Mg twice daily Multifocal pneumonia Start IV vancomycin, cefepime CT chest reviewed, does show extensive bilateral multifocal pneumonia Check procalcitonin MRSA nasal swab Chronic medical conditions COPD Tobacco use Depression Anxiety Lung cancer on chemotherapy Thrombocytopenia Chronic anemia Hospice has been consulted, case assistant/high school social studies tutor consulted Resume home medications DVT prophylaxis-subcutaneous heparin
[2025-03-19] MEDS: HYDROMORPHONE 2MG/ML SYRINGE 1 MG IV ×2 (19:22→22:40)
--- NOTE | 2025-03-19 19:40 | PC.NURSE ---
Pt being admitted to 213, upon assessment pt appears in pain, rates it 06/24, he was given morphine and zofran at 1845 with no relief, giving him 1 mg Dilaudid before going to the floor. Sister at bedside, reviewed admission status and plan of care. VSS. Pain at this time 2/10 after Dilaudid, pt resting comfortably. Report called to Barney RN, pt to go by w/c to floor.
--- NOTE | 2025-03-19 20:18 | PC.NURSE ---
Patient arrived to floor via wheelchair from ED at 19:51.
[2025-03-19] MEDS: OXYCODONE 10MG W/APAP 325MG TABLET 1 EACH PO (21:42)
[2025-03-19] MEDS: GABAPENTIN 800MG TABLET 800 MG PO (23:30)
[2025-03-19] MEDS: CYCLOBENZAPRINE 10MG TABLET 7.5 MG PO (23:30)
[2025-03-19] MEDS: OLANZapine 5 MG ODT TABLET 2.5 MG SL (23:31)
[2025-03-19] MEDS: AEROCHAMBER/OPTIHALER 1 UNIT MC (23:34)
--- NOTE | 2025-03-19 23:42 | PC.NURSE ---
Spoke to [facility] pharmacy regarding pts medication and dosage. Pharmacy corrected dosing on Zyprexa and timed HS medications.
--- NOTE | 2025-03-19 23:42 | PC.NURSE ---
Prior to the administration of PO Flexeril per MAR, [facility] was paged at 23:10 to confirm the safety of splitting up a 10 mg Flexeril tablet; only 10 mg tablets were available in this facility's [facility] at the time. Three-fourths (0.75) of the Flexeril tablet was administered to equal the ordered dose of Flexeril 7.5 mg per MAR. The remaining one-fourth of the tablet was wasted appropriately by and Randy Coe RN per facility policy (uncontrolled bin).
--- NOTE | 2025-03-19 23:44 | PC.NURSE ---
Provider notified of need to restart home medications. Provider later contacted to restart Hydroxyzine, provider gave a telephone order. Pharmacy sheet was filled out per order and faxed to pharmacy.
--- NOTE | 2025-03-20 00:39 | PC.NURSE ---
Pt's home med Vraylor unavailable, it is not stocked in any [facility].
[2025-03-20] MEDS: HYDROMORPHONE 2MG/ML SYRINGE 1 MG IV ×5 (01:25→10:29)
--- NOTE | 2025-03-20 01:32 | PC.NURSE ---
Nursing Wound Note : Red Raised Hard Painful Nodule to Left Clavicle area Redness with small open area to coccyx, no drainage was observed. Pt did not report any pain upon touching the area. New dressing applied and is intact.
[2025-03-20 04:00] VITALS: BP 93/57; PULSE 102; RESP 16; TEMP 36.8; O2SAT 93; BMI 19.0
[2025-03-20] MEDS: CEFEPIME HCL 2 GM in 0.9 % SODIUM CHLORIDE 100 ML IV (06:19)
[2025-03-20] MEDS: VANCOMYCIN CONSULT REQUEST 1 EACH NOTAPPLIC (07:01)
--- NOTE | 2025-03-20 07:18 | PC.NURSE ---
Pt A&Ox4. Pt on 3L/NC. Pt reporting pain on right side of back. Pt's main goal this shift has been pain control. Pt has received Dilaudid as ordered, prn. Provoider changed med to scheduled dose after increased need. Call light w/in reach. Plan of care ongoing.
[2025-03-20 07:19] LABS: Hematocrit 26.1 % (42.0-52.0); Hemoglobin 8.1 g/dL (14.1-18.0); Immature Granulocytes % 3.2 %; Mean Corpuscular HGB Conc 31.0 g/dL (31.8-35.4); Mean Corpuscular Hemoglobin 30.6 pg (27.0-31.2); Mean Corpuscular Volume 98.5 fl (80-94); Nucleated Red Blood Cells % 0 %; Platelet Count 134 K/mm3 (142-424); Red Blood Count 2.65 M/mm3 (4.60-6.20); Red Cell Distribution Width-SD 60.0 fL; White Blood Count 15.9 K/mm3 (4.8-10.8)
[2025-03-20 08:00] VITALS: BP 118/62; PULSE 98; RESP 16; TEMP 36.9
--- NOTE | 2025-03-20 08:15 | EXP.DC.SUM ---
General Admission date:: 03/19/25 Discharge date: 03/20/25 HPI HPI HPI: Patient is a 59-year-old male with past medical history of lung cancer with metastasis COPD who presents to the hospital due to right-sided low back pain that is sharp, 8/10 intensity, started around 3 days ago and has been persistent. Patient has history of lung cancer with metastasis, CT of her spine did show lytic lesions in the iliac spine and T12, he was also diagnosed with pneumonia. According to patient his pain was uncontrolled so he decided to come to the hospital for pain control. Patient otherwise denied fevers. Patient is undergoing process of hospice evaluation. Hospital Course Hospital Course Hospital Course: Patient is a 59-year-old male with past medical history of lung cancer with metastasis COPD who presents to the hospital due to right-sided low back pain that is sharp, 8/10 intensity, started around 3 days ago and has been persistent. Patient has history of lung cancer with metastasis, CT of her spine did show lytic lesions in the iliac spine and T12, he was also diagnosed with pneumonia. According to patient his pain was uncontrolled so he decided to come to the hospital for pain control. Patient otherwise denied fevers. Patient is undergoing process of hospice evaluation. Increased dosage of opiates, achieved some benefit. Hospice evaluated and will admit patient when he gets home. Stable to discharge. 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 Initiated on Dilaudid 1 mg IV every 2 hours. Have achieved some benefit in control. Transition to oral opiates with oxycodone 15 mg every 4 hours. Tolerating well. Patient had previously been on Suboxone until 3 weeks ago. Has high tolerance. Achieving benefit to his main symptoms. Recommend he continue antibiotics for his pneumonia initiated at . Given improvement in pain control, patient was evaluated by hospice. Patient to be admitted when he gets home. Stable oxygen requirement during admission. Extensive discussion with patient and family on day of discharge about goals. Will discharge on 15 mg oxycodone every 4 hours as needed for moderate to severe pain. Resume home medications for chronic conditions including inhalers for COPD, gabapentin for neuropathy, olanzapine for mood and sleep, pantoprazole for GERD, and bowel regimen with docusate/senna twice daily Total time spent on discharge 32 minutes in counseling, discussion with hospice, documentation, chart review, and direct care with patient. Exam Data for Last 24 hours Vital signs and Labs for Last 24 Hours: Temp Pulse Resp BP Pulse Ox O2 Del Method O2 Flow Rate 98.2 F 102 H 16 93/57 L 93 L Nasal Cannula 3 03/20/25 04:00 03/20/25 04:00 03/20/25 04:00 03/20/25 04:00 03/20/25 04:00 03/20/25 07:00 03/20/25 07:00 Laboratory Results - last 24 hr 03/20/25 06:45: WBC 15.9 H, RBC 2.65 L, Hgb 8.1 L, Hct 26.1 L, MCV 98.5 H, MCH 30.6, MCHC 31.0 L, RDW 16.6, Plt Count 134 L D, MPV 10.8 H, Neut % (Auto) 86.0 H, Lymph % (Auto) 4.9 L, Nicholas % (Auto) 5.4, Eos % (Auto) 0.2, Baso % (Auto) 0.3, Neut # (Auto) 13.7 H, Lymph # (Auto) 0.8, Nicholas # (Auto) 0.9, Eos # (Auto) 0.0, Baso # (Auto) 0.0 I & O for Last 24 hours: Intake & Output 03/17/25 03/18/25 03/19/25 03/20/25 23:59 23:59 23:59 23:59 Output Total 950 / 950 Balance -950 / -950 Weight 58.151 kg 58.151 kg Constitutional Constitutional: mild distress, cachectic, chronically ill appearing and cooperative *Routine HEENT Exam Head: Present normocephalic Eye: Present EOMI and PERRL ENT: Present mucous membranes moist *Routine Neck Exam Neck: Present supple; Absent lymphadenopathy *Routine Respiratory Exam Respiratory: Present prolonged expiratory phase, rhonchi, wheezes and crackles *Routine Cardiovascular Exam Cardiovascular: Present RRR *Routine Abdominal Exam Abdominal: Present soft and normoactive bowel sounds; Absent tenderness *Routine Rectal Exam Patient deferred: visual exam *Routine Exam Patient deferred: penile exam *Routine Extremities Exam Extremities: Absent cyanosis, clubbing or edema *Routine Skin Exam Skin: Present intact and warm; Absent rash Comments: Nickel sized stage II decubitus wound at proximal guteal fold *Routine Neurological Exam Neurological: Present alert, oriented X3 and moving all extremities; Absent altered mental status Results Data Completed and Pending Labs on day of discharge: Labs from last 24 hours 03/20/25 06:45 WBC 15.9 H RBC 2.65 L Hgb 8.1 L Hct 26.1 L MCV 98.5 H MCH 30.6 MCHC 31.0 L RDW 16.6 Plt Count 134 L D MPV 10.8 H Neut % (Auto) 86.0 H Lymph % (Auto) 4.9 L Nicholas % (Auto) 5.4 Eos % (Auto) 0.2 Baso % (Auto) 0.3 Neut # (Auto) 13.7 H Lymph # (Auto) 0.8 Nicholas # (Auto) 0.9 Eos # (Auto) 0.0 Baso # (Auto) 0.0 DS: Diagnosis Discharge Diagnosis (1) Cancer, metastatic to bone: Status: Acute Code(s): C79.51 - Secondary malignant neoplasm of bone (2) Metastatic primary lung cancer: Status: Acute Code(s): C34.90 - Malignant neoplasm of unspecified part of unspecified bronchus or lung (3) Symptomatic anemia: Status: Acute Code(s): D64.9 - Anemia, unspecified (4) Multifocal pneumonia: Status: Acute Code(s): J18.9 - Pneumonia, unspecified organism (5) Cancer related pain: Status: Acute Code(s): G89.3 - Neoplasm related pain (acute) (chronic) (6) Constipation: Status: Acute Code(s): K59.00 - Constipation, unspecified Meds Home Medications and Allergies Home Medications ?Medication ?Instructions ?Recorded ?Confirmed ?Type ipratropium 0.5 mg-albuterol 3 mg 3 ml inhalation QID PRN shortness 01/30/24 03/19/25 Rx (2.5 mg base)/3 mL nebulization of breath or wheezing 90 days #270 soln mL tamsulosin 0.4 mg capsule (Flomax) 0.4 mg PO DAILY #14 caps 01/06/25 03/19/25 Rx gabapentin 800 mg tablet 800 mg PO TID #90 tabs 01/12/25 03/19/25 Rx olanzapine 5 mg tablet 2.5 mg PO HS 01/12/25 03/19/25 History albuterol sulfate 90 mcg/actuation 2 inh inhalation QID PRN shortness 01/25/25 03/19/25 Rx aerosol inhaler of breath or wheezing 90 days #8.5 grams polyethylene glycol 3350 17 17 g PO DAILY PRN constipation 02/15/25 03/19/25 Rx gram/dose oral powder (Miralax) #510 grams hydroxyzine pamoate 25 mg capsule 25 mg PO Q6HP PRN Anxiety 03/19/25 03/19/25 History mometasone-formoterol HFA 200 2 puff inhalation BID 03/19/25 03/19/25 History mcg-5 mcg/actuation aerosol inhaler (Dulera) cyclobenzaprine 7.5 mg tablet 7.5 mg PO TIDP PRN Muscle Spasm 03/20/25 03/20/25 History oxycodone-acetaminophen 10 mg-325 1.5 tab PO Q4HP PRN Moderate To 03/20/25 Rx mg tablet Severe Pain (4-10) #25 tabs pantoprazole 40 mg tablet,delayed 40 mg PO DAILY 03/20/25 03/20/25 History release sennosides 8.6 mg-docusate sodium 1 tab-cap PO BID #30 tabs 03/20/25 Rx 50 mg tablet (Senna with Docusate Sodium) New Prescriptions to Start Prescriptions: oxycodone-acetaminophen Sukumar Hendrix sennosides-docusate sodium [Senna with Docusate Sodium] Sukumar Hendrix Allergies Allergy/AdvReac Type Severity Reaction Status Date / Time No Known Allergies Allergy Verified 02/11/25 10:22 Discharge Plan Disposition Patient Disposition: Hospice - Home Condition: Fair Discharge Order Discharge Orders: Discharge Order (Routine); Ordered 03/20/25 Ordered By: Sukumar Hendrix Follow up Plan Prescriptions/Medication Reconciliation: New sennosides-docusate sodium [Senna with Docusate Sodium] 8.6-50 mg tablet 1 tab-cap PO BID Qty: 30 0RF oxycodone-acetaminophen 10-325 mg Tablet 1.5 tab PO Q4HP PRN (Reason: Moderate To Severe Pain (4-10)) Qty: 25 0RF Continued ipratropium-albuterol 0.5 mg-3 mg(2.5 mg base)/3 mL solution for nebulization 3 ml inhalation QID PRN (Reason: shortness of breath or wheezing) 90 Days Qty: 270 3RF olanzapine 5 mg tablet 2.5 mg PO HS gabapentin 800 mg tablet 800 mg PO TID Qty: 90 3RF tamsulosin [Flomax] 0.4 mg capsule 0.4 mg PO DAILY Qty: 14 0RF albuterol sulfate 90 mcg/actuation HFA aerosol inhaler 2 inh inhalation QID PRN (Reason: shortness of breath or wheezing) 90 Days Qty: 8.5 2RF polyethylene glycol 3350 [Miralax] 17 gram/dose powder 17 g PO DAILY PRN (Reason: constipation) Qty: 510 0RF hydroxyzine pamoate 25 mg capsule 25 mg PO Q6HP PRN (Reason: Anxiety) Dulera 200-5 mcg/actuation HFA aerosol inhaler 2 puff INHALATION BID cyclobenzaprine 7.5 mg tablet 7.5 mg PO TIDP PRN (Reason: Muscle Spasm) pantoprazole 40 mg tablet,delayed release (DR/EC) 40 mg PO DAILY Discontinued docusate sodium [Colace] 100 mg capsule 100 mg PO DAILY Qty: 30 0RF oxycodone-acetaminophen 5-325 mg tablet 1 tab PO Q8HP PRN (Reason: Moderate Pain (Scale Score 5-6)) Problem Reconciliation Problems Reviewed?: Yes Patient Discharge Instructions ACTIVITY: Continue current activity DIET: continue same diet Patient Instructions: DI for Cancer Pain Syndromes Print Language: Malian Providers Primary Care Provider: Constantine Stiles Admit Provider: Sukumar Hendrix Attending Provider: Sukumar Hendrix
[2025-03-20] MEDS: GABAPENTIN 800MG TABLET 800 MG PO ×2 (08:19→12:15)
[2025-03-20 08:30] LABS: Alanine Aminotransferase 30 U/L (12-78); Albumin Level 3.2 g/dl (3.5-5.0); Albumin/Globulin Ratio 0.9 (1.1-1.8); Alkaline Phosphatase 210 U/L (38-126); Anion Gap 15.3 mEq/L (5-15); Aspartate Amino Transferase 26 U/L (17-59); Bilirubin,Total 0.5 mg/dl (0.2-1.3); Blood Urea Nitrogen 9 mg/dl (9-20); Calcium 9.5 mg/dl (8.4-10.2); Carbon Dioxide 26 mmol/L (22.0-30.0); Chloride 98 mmol/L (98-107); Creatinine Clearance Estimated 64 mL/min (50-200); Creatinine,Serum 0.80 mg/dl (0.66-1.25); Estimated Glomerular Filt Rate 98 ml/min (>60); GFR (African American) 119 ML/MIN (>60); Globulin 3.5 g/dL (1.3-3.2); Glucose 110 mg/dl (74-100); Magnesium 1.7 mg/dl (1.6-2.3); Potassium 4.3 mmoL/L (3.5-5.1); Sodium 135 mmol/L (136-145); Total Protein,Serum 6.7 g/dl (6.3-8.2)
[2025-03-20 08:41] LABS: Phosphorous 3.1 mg/dl (2.5-4.5)
[2025-03-20 08:58] LABS: Procalcitonin 0.245 ng/mL (0.0-2.0)
[2025-03-20] MEDS: LEVOFLOXACIN/D5W 750 MG/150 ML 750 MG/150 ML PIGGYBACK 100 MG IV (09:15)
[2025-03-20] MEDS: CYCLOBENZAPRINE 10MG TABLET 7.5 MG PO (09:15)
[2025-03-20] MEDS: TAMSULOSIN 0.4MG CAPSULE 0.4 MG PO (09:16)
[2025-03-20] MEDS: DOCUSATE SODIUM 100 MG CAPSULE PO (09:16)
[2025-03-20 09:21] VITALS: O2SAT 94
[2025-03-20] MEDS: ZOLEDRONIC ACID 4 MG in 0.9 % SODIUM CHLORIDE 100 ML 420 MG IV (12:15)
[2025-03-20] MEDS: OXYCODONE 10MG W/APAP 325MG TABLET 1.5 EACH PO (12:15)
[2025-03-20] MEDS: POLYETHYLENE GLYCOL 3350 17 GM PACKET PO (12:15)
[2025-03-20] MEDS: MINERAL OIL ENEMA 133ML 133 ML RC (12:37)
--- NOTE | 2025-03-20 13:00 | HMH.PHAINT1 ---
Pharmacy Intervention Comments: MEDICATION RECONCILIATION COMPLETED ON PATIENT USING EXTERNAL FILL HISTORY FROM PHARMACY, SARITA REPORT, AND LIST FROM PCP OFFICE. -MIQUEL CRUZD
[2025-03-20] MEDS: HYDROMORPHONE 2MG/ML SYRINGE 2 MG IV (14:25)
[2025-03-20 14:29] LABS: Total Cells Counted 100
[2025-03-20 14:33] LABS: Tear Drop Cells 1+
--- NOTE | 2025-03-21 12:55 | SW/DCPLANNER ---
Patient was admitted to Hospice yesterday evening.
== END 2025-03-20 15:13 | disposition hospice, home (50) ==
LOC: ER 19:04 → 2ND 19:40
PROVIDERS: Internal Medicine; Admitting Provider Internal Medicine Adolescent Medicine; Emergency Provider Student in an Organized Health Care Education/Training Program; PCP Nurse Practitioner Family; Visit Provider Internal Medicine Adolescent Medicine
DX: G89.3 Neoplasm related pain (acute) (chronic) (principal); C79.51 Secondary malignant neoplasm of bone; C34.90 Malignant neoplasm of unspecified part of unspecified bronchus or lung; J18.9 Pneumonia, unspecified organism; J44.9 Chronic obstructive pulmonary disease, unspecified; D64.9 Anemia, unspecified; G47.9 Sleep disorder, unspecified; K59.00 Constipation, unspecified; R64 Cachexia; G62.9 Polyneuropathy, unspecified; K21.9 Gastro-esophageal reflux disease without esophagitis; F39 Unspecified mood [affective] disorder; F32.A Depression, unspecified; F41.9 Anxiety disorder, unspecified; D69.6 Thrombocytopenia, unspecified; Z85.528 Personal history of other malignant neoplasm of kidney; Z87.891 Personal history of nicotine dependence; Z68.1 Body mass index [BMI] 19.9 or less, adult; Z79.51 Long term (current) use of inhaled steroids; Z79.899 Other long term (current) drug therapy
CPT/HCPCS: 80053; 83735; 84100; 84145; 85007; 85025; 85027; 87081; 96374; 96375; 96376; 99285; G0378; J0692; J1171; J1956; J2270; J2405; J3489